=== PATIENT | female | born 1950 | race African-American/Black ===

== ENCOUNTER 2017-02-24 14:13 | Inpatient (IN) | payer MEDICARE, OTHER ==
[~2017-02-24] VITALS: Ht 157.5 cm; Wt 45.3 kg
[~2017-02-24 14:13] MED LIST: ASPI81 TUBE; DILT30 PO; DUONI NEB; FERR300S PO; LISI5 PO; METO50TA PO; METR-1 PO; RIVA20 PO
--- NOTE | 2017-02-24 14:37 | PD ---
HPI Chief Complaint: wound Time Seen by Provider: 14:37 Travel History International Travel<30 days: No Contact w/Intl Traveler<30days: No History of Present Illness HPI 66-year-old female with a history of CVA, diabetes, hypertension, gastrostomy tube is brought to the emergency department from [place] [facility] for evaluation of left foot and ankle wound. Per the documentation sent with the patient she needs to have a left BKA. I reviewed the documentation which shows that the patient has been on hospice care and the is now requesting aggressive treatment of the patient's left foot and ankle wound. The patient was sent from her detention facility to the [place] [facility] to see Dr. Gambino today and he then sent her immediately to the emergency department. The patient is nonverbal and unable to provide any history. PFSH Past Medical History Hx Anticoagulant Therapy: Yes Cancer: No Cardiovascular Problems: Yes Cerebrovascular Accident: Yes Diabetes: Yes Endocrine: No Genitourinary: No Immune Disorder: No Musculoskeletal: No Neurologic: No Psychiatric: No Reproductive: No Respiratory: Yes (Tracheostomy) Past Surgical History Abdominal Surgery: No Cardiac Surgery: No Ear Surgery: No Endocrine Surgery: No Eye Surgery: No Genitourinary Surgery: No Gynecologic Surgery: No Oral Surgery: No Thoracic Surgery: No Social History Alcohol Use: No Tobacco Use: No Substance Use: No Allergies-Medications (Allergen,Severity, Reaction): Coded Allergies: *MDRO Multi-Drug Resistant Organism (Verified Adverse Reaction, Unknown, 07/16/15) MRSA PCR Screen positive 07/15/15. Reported Meds & Prescriptions Reported Meds & Active Scripts Active Diltiazem HCl 30 Mg Tab 90 Mg PO QID 14 Days Flagyl (Metronidazole) 500 Mg Tab 500 Mg PO Q8HR 7 Days Xarelto 20 Mg Tab (Rivaroxaban) 20 Mg Tab 20 Mg PO DAILY 30 Days Metoprolol Tartrate 50 Mg Tab 100 Mg PO Q8HR 30 Days Prinivil 5 mg (Lisinopril) 5 Mg Tab 5 Mg PO DAILY 30 Days Ferrous Sulfate 300 Mg/5 Ml Elix 300 Mg PO DAILY 30 Days Aspirin Low Strength (Aspirin) 81 Mg Chew 81 Mg TUBE DAILY 30 Days Resp: Albuterol/Ipratropium 2.5 Mg/0.5 Mg (Albuterol/Ipratropium) 1 Ampule Nebu 1 Ampule NEB Q4HR NEB PRN 14 Days Resp: Albuterol/Ipratropium 2.5 Mg/0.5 Mg (Albuterol/Ipratropium) 1 Ampule Nebu 1 Ampule NEB QID NEB 14 Days Review of Systems ROS Limitations: Poor Historian Except as stated in HPI: all other systems reviewed are Neg Physical Exam Exam Limitations: Poor Historian Narrative GENERAL: Well-nourished and well-developed female patient in no acute distress. SKIN: Warm and dry. 2 x 4 cm sacral wound. HEAD: Normocephalic and atraumatic. EYES: No injection, drainage, or hyphema noted. PERRLA. EOMI. ENT: No nasal drainage noted. Oropharynx is clear. NECK: Supple and the trachea is midline. CARDIOVASCULAR: Regular rate and rhythm. RESPIRATORY: Breath sounds are equal bilaterally with no accessory muscle use, wheezing, rhonchi, or crackles. GASTROINTESTINAL: Abdomen is soft, non-tender, and nondistended. MUSCULOSKELETAL: There is a large deep wound to the anterior left ankle and foot that may extend to the joint. There is black eschar formation to the heel and toes of the left foot. The toes of the left foot are dark and dusky without capillary refill. There is no palpable DP or PT pulse in the left foot. Patient has contractures in the left side secondary to prior stroke. No obvious deformities throughout all other extremities. NEUROLOGICAL: Awake, alert, and oriented. Normal speech and gait. Cranial nerves are grossly intact. Data Data Last Documented VS Vital Signs Date Time Temp Pulse Resp B/P Pulse Ox O2 Delivery O2 Flow Rate FiO2 02/24/17 15:04 100 16 02/24/17 14:54 95 Room Air 02/24/17 14:49 99.5 115/54 Orders Complete Blood Count With Diff (02/24/17 14:34) Comprehensive Metabolic Panel (02/24/17 14:34) Lactic Acid Sepsis Protocol (02/24/17 14:34) Blood Culture (02/24/17 14:34) Wound Culture And Gram Stain (02/24/17 14:34) Chest, Single Ap (02/24/17 14:34) Blood Glucose (02/24/17 14:34) Ecg Monitoring (02/24/17 14:34) Iv Access Insert/Monitor (02/24/17 14:34) Oximetry (02/24/17 14:34) Urinalysis - C+S If Indicated (02/24/17 14:34) Foot, Complete (Evu6nms) (02/24/17 14:46) Tibia/Fibula (Ap/Lat) (02/24/17 14:46) Consult Vascular Surgery (02/24/17 ) Vancomycin Inj (Vancomycin Inj) (02/24/17 15:00) Piperacil-Tazo 4.5 Gm Premix (Zosyn 4.5 (02/24/17 15:00) (Hub Use Only)Inp Phy Cons/Ref (02/24/17 ) Type And Screen (02/24/17 15:52) Red Blood Cells (Rbc) (02/24/17 15:52) Urinary Catheter Management SABAS.Q8H (02/24/17 16:47) Prothrombin Time / Inr (Pt) (02/24/17 16:53) Act Partial Throm Time (Ptt) (02/24/17 16:53) Labs Laboratory Tests Test 02/24/17 15:09 White Blood Count 11.1 TH/MM3 Red Blood Count 3.58 MIL/MM3 Hemoglobin 8.0 GM/DL Hematocrit 25.5 % Mean Corpuscular Volume 71.3 FL Mean Corpuscular Hemoglobin 22.5 PG Mean Corpuscular Hemoglobin 31.5 % Concent Red Cell Distribution Width 16.6 % Platelet Count 633 TH/MM3 Mean Platelet Volume 8.4 FL Neutrophils (%) (Auto) 76.2 % Lymphocytes (%) (Auto) 10.6 % Monocytes (%) (Auto) 11.1 % Eosinophils (%) (Auto) 1.7 % Basophils (%) (Auto) 0.4 % Neutrophils # (Auto) 8.5 TH/MM3 Lymphocytes # (Auto) 1.2 TH/MM3 Monocytes # (Auto) 1.2 TH/MM3 Eosinophils # (Auto) 0.2 TH/MM3 Basophils # (Auto) 0.0 TH/MM3 CBC Comment DIFF FINAL Differential Comment Sodium Level 135 MEQ/L Potassium Level 4.7 MEQ/L Chloride Level 102 MEQ/L Carbon Dioxide Level 27.9 MEQ/L Anion Gap 5 MEQ/L Blood Urea Nitrogen 21 MG/DL Creatinine 0.56 MG/DL Estimat Glomerular Filtration 131 ML/MIN Rate Random Glucose 109 MG/DL Calcium Level 8.9 MG/DL Total Bilirubin 0.2 MG/DL Aspartate Amino Transf 21 U/L (AST/SGOT) Alanine Aminotransferase 16 U/L (ALT/SGPT) Alkaline Phosphatase 111 U/L Total Protein 7.9 GM/DL Albumin 2.0 GM/DL [facility] Medical Decision Making Medical Screen Exam Complete: Yes Emergency Medical Condition: Yes Differential Diagnosis Gas gangrene versus peripheral vascular disease versus sepsis versus abscess Narrative Course 66-year-old female with multiple medical conditions is brought to the emergency department for evaluation of left foot and ankle wound. Patient has a low- grade fever of 99.5F and is tachycardic with a heart rate of 95 bpm. Otherwise vital signs within normal limits. She has a very large and deep wound to the left foot and ankle, the foot appears gangrenous with loss of blood supply. I spoke with Dr. Gambino who states that he saw the patient in outpatient clinic today and that the wound extends to the bone so therefore he sent her to the emergency department for below the knee amputation to be performed by either vascular or orthopedic surgery. CBC shows slightly elevated white blood cell count of 11.1. Anemia with a hemoglobin of 8.0, hematocrit 25.5. CMP is unremarkable. X-ray of the left foot shows multifocal osteomyelitis involving the ankle and foot. X-ray of the left tib-fib shows ankle and foot osteomyelitis. Chest x-ray shows masslike density within the right lower lung field which is indeterminate. CT of the chest may be helpful for further evaluation. Mild cardiomegaly. The patient has left foot and ankle osteomyelitis with wet gangrene. She'll be admitted to medicine service with vascular surgery consultation and is scheduled to have an [id number] amputation tomorrow morning. I discussed the case with my attending physician Dr. Abrams who is aware of the patients history, physical examination findings, and treatment plan. Physician Communication Physician Communication I spoke with Mallika JOSE for Dr. Kam who evaluated the patient in the ED and spoke with her team of attendings and the plan is for Dr. Mccray to perform AKA tomorrow morning. I spoke with Dr. Bubba OLSEN who agrees to admit the patient to his service. Diagnosis Primary Impression: Subacute osteomyelitis, left ankle and foot Additional Impressions: Wet gangrene Critical lower limb ischemia Admitting Information Admitting Physician Requests: Admit Jen Madsen 27, 2017 14:37
[2017-02-24 14:49] VITALS: BP 115/54; PULSE 95; RESP 22; TEMP 99.5; O2SAT 95
[2017-02-24 14:54] VITALS: O2SAT 95
[2017-02-24] MEDS ORDERED: VANCOMYCIN INJ 1,000 MG in SODIUM CHLOR 0.9% 250 ML INJ 250 ML IV ONE (15:00)
[2017-02-24] MEDS ORDERED: PIPERACIL-TAZO 4.5 GM PREMIX 100 ML IV ONE (15:00)
[2017-02-24 15:43] LABS: AUTOMATED NEUTROPHIL # 8.5 TH/MM3 (1.8-7.7); BASOPHIL % 0.4 % (0.0-2.0); EOSINOPHIL # 0.2 TH/MM3 (0-0.4); EOSINOPHIL % 1.7 % (0.0-4.0); HEMATOCRIT 25.5 % (35.0-46.0); HEMO FLAGS DIFF FINAL; LYMPH % 10.6 % (9.0-44.0); LYMPHOCYTE # 1.2 TH/MM3 (1.0-4.8); MEAN CELL VOLUME 71.3 FL (80.0-100.0); MEAN CORPUSCULAR HEMOGLOBIN 22.5 PG (27.0-34.0); MEAN CORPUSCULAR HGB CONC 31.5 % (32.0-36.0); MONO % 11.1 % (0.0-8.0); NEUT % 76.2 % (16.0-70.0); PLATELET COUNT 633 TH/MM3 (150-450); RED BLOOD COUNT 3.58 MIL/MM3 (4.00-5.30); RED CELL DISTRIBUTION WIDTH 16.6 % (11.6-17.2); WHITE BLOOD COUNT 11.1 TH/MM3 (4.0-11.0)
[2017-02-24 16:03] LABS: ALT (GPT) 16 U/L (10-53); ANION GAP 5 MEQ/L (5-15); AST (GOT) 21 U/L (15-37); BICARBONATE 27.9 MEQ/L (21.0-32.0); BLOOD UREA NITROGEN 21 MG/DL (7-18); CHLORIDE 102 MEQ/L (98-107); GLOMERULAR FILTRATION RATE 131 ML/MIN (>89); POTASSIUM 4.7 MEQ/L (3.5-5.1); SODIUM (NA) 135 MEQ/L (136-145)
[2017-02-24 16:05] LABS: ALKALINE PHOSPHATASE 111 U/L (45-117); TOTAL BILIRUBIN ADULT 0.2 MG/DL (0.2-1.0)
--- NOTE | 2017-02-24 16:16 | RADRPT ---
EXAM DATE/TIME: 02/24/2017 15:31 [facility] COMPARISON: No previous studies available for comparison. INDICATIONS : Left foot wound. MEDICAL HISTORY : diabetic SURGICAL HISTORY : None. ENCOUNTER: Initial ACUITY: 1 day PAIN SCORE: Non-responsive. LOCATION: Left chest foot FINDINGS: There appears to be multiple sites of soft tissue ulceration with underlying bony changes consistent with multifocal cellulitis and osteomyelitis, these including the region the lateral malleolus, the h eel, the first tarsometatarsal joint region, the first metatarsophalangeal joint region, the great to e tuft and the fifth toe tuft. There appears to be some ankle joint widening and subluxation and ther e is some erosive change involving the anterior lip of the distal tibial epiphysis. There is moderate diffuse demineralization CONCLUSION: Findings worrisome for multifocal osteomyelitis involving ankle and foot. Emil Kirby MD on February 24, 2017 at 16:10 Board Certified Radiologist. This report was verified electronically.
--- NOTE | 2017-02-24 16:18 | RADRPT ---
EXAM DATE/TIME: 02/24/2017 15:34 [facility] COMPARISON: No previous studies available for comparison. INDICATIONS : Wound left tib/fib MEDICAL HISTORY : diabetic SURGICAL HISTORY : None. ENCOUNTER: Initial ACUITY: 1 day PAIN SCORE: Non-responsive. LOCATION: Left tibia fibula FINDINGS: There is ankle joint subluxation and findings worrisome for osteomyelitis at the ankle. The more prox imal tibia and fibula are grossly intact. Moderate diffuse demineralization is present. CONCLUSION: Abnormalities at the ankle involving the foot. The proximal left tibia and fibula are intact Emil Kirby MD on February 24, 2017 at 16:14 Board Certified Radiologist. This report was verified electronically.
--- NOTE | 2017-02-24 16:44 | RADRPT ---
EXAM DATE/TIME: 02/24/2017 15:29 [facility] COMPARISON: CHEST SINGLE AP, July 23, 2015, 12:50. INDICATIONS : Evaluate for pneumonia, pneumothorax or communicable disease. Pre op for above the left knee amputati on. MEDICAL HISTORY : Hypertension. Diabetes, MRSA SURGICAL HISTORY : None. ENCOUNTER: Initial ACUITY: 1 day PAIN SCORE: Non-responsive. LOCATION: Bilateral chest FINDINGS: There is a mass-like density within the right lower lung field. CT of the chest may be helpful for fu rther evaluation of this density. The heart is enlarged. The left lung is clear. CONCLUSION: 1. Mass-like density within the right lower lung field which is indeterminate. CT of the chest may b e helpful for further evaluation of this finding. 2. Mild cardiomegaly. Yoan Roa MD on February 24, 2017 at 16:39 Board Certified Radiologist. This report was verified electronically.
--- NOTE | 2017-02-24 16:58 | PD.VS.CON ---
History of Present Illness Chief Complaint: Left heel/foot with chronic foul smelling necrotic ulcerations that has been present for awhile per . Consult Requested by: ED History of Present Illness Mrs. Marrufo is a non verbal 66/ AA female patient who has been on Hospice post hx of multiple CVAs. History has been obtained by and daughter who were at the BS during evaluation. Pt was recently on Hospice, reported they did not know the severity of the ulcers until recently and this is when they decided to come to the ED to seek treatment of patients left lower leg ulcerations (Mallika Rizvi) Past/Family/Social History Past Medical History Cerebrovascular accident Diabetes Hypertension Hyperlipidemia Hemiplegia following CVA GERD Past Surgical History Gastrostomy tube placement (Mallika Rizvi) Home Medications Active Scripts Diltiazem HCl 30 Mg Tab90 Mg PO QID 14 Days Prov:Citlaly You 07/25/15 Metronidazole (Flagyl)500 Mg [id number] Mg PO Q8HR 7 Days Prov:Rivka Chan 07/24/15 Rivaroxaban (Xarelto 20 Mg Tab)20 Mg Tab20 Mg PO DAILY 30 Days Ref 0 Prov:Rivka Chan 07/24/15 Metoprolol Tartrate 50 mg 50 Mg Pzk135 Mg PO Q8HR 30 Days Prov:Rivka Chan 07/24/15 Lisinopril 5 mg (Prinivil 5 mg)5 Mg Tab5 Mg PO DAILY 30 Days Prov:Rivka Chan 07/24/15 Ferrous Sulfate 300 Mg/5 Ml [id number] Mg PO DAILY 30 Days Prov:Rivka Chan 07/24/15 Aspirin (Aspirin Low Strength)81 Mg Chew81 Mg TUBE DAILY 30 Days Prov:Rivka Chan 07/24/15 Albuterol/Ipratropium (Resp: Albuterol/Ipratropium 2.5 Mg/0.5 Mg)1 Ampule Nebu1 Ampule NEB Q4HR NEB PRN (WHEEZING) 14 Days Prov:Rivka Chan 07/24/15 Albuterol/Ipratropium (Resp: Albuterol/Ipratropium 2.5 Mg/0.5 Mg)1 Ampule Nebu1 Ampule NEB QID NEB 14 Days Prov:Rivka ChanJose JOSE 07/24/15 Coded Allergies: *MDRO Multi-Drug Resistant Organism (Verified Adverse Reaction, Unknown, 07/16/15) MRSA PCR Screen positive 07/15/15. Review of Systems ROS Limitations: Other (pt non verbal) Integumentary: COMPLAINS OF: Abnormal pigmentation (pt with large multiple foul smelling necrotic ulcerations left foot and heel ) (Mallika Rizvi) Physical Exam Vitals/I&O Date Time Temp Pulse Resp B/P Pulse Ox O2 Delivery O2 Flow Rate FiO2 02/24/17 15:04 100 16 02/24/17 14:54 95 Room Air 02/24/17 14:49 99.5 95 22 115/54 95 Neuro: Pt alert Non Verbal Heart: +S1,S2 Lungs: CTA Vascular: Non palpable Left DP/PT Extremities: Hemiplegia post CVA Pt is bed bound (Mallika Rizvi) Laboratory Tests Test 02/24/17 15:09 White Blood Count 11.1 Red Blood Count 3.58 Hemoglobin 8.0 Hematocrit 25.5 Mean Corpuscular Volume 71.3 Mean Corpuscular Hemoglobin 22.5 Mean Corpuscular Hemoglobin 31.5 Concent Red Cell Distribution Width 16.6 Platelet Count 633 Mean Platelet Volume 8.4 Neutrophils (%) (Auto) 76.2 Lymphocytes (%) (Auto) 10.6 Monocytes (%) (Auto) 11.1 Eosinophils (%) (Auto) 1.7 Basophils (%) (Auto) 0.4 Neutrophils # (Auto) 8.5 Lymphocytes # (Auto) 1.2 Monocytes # (Auto) 1.2 Eosinophils # (Auto) 0.2 Basophils # (Auto) 0.0 CBC Comment DIFF FINAL Differential Comment Date/Time Procedure Status Source Growth 02/24/17 15:14 Gram Stain Received Wound Foot Pending 02/24/17 15:14 Wound Culture Received Wound Foot Pending 02/24/17 15:05 Aerobic Blood Culture Received Blood Peripheral Pending 02/24/17 15:05 Anaerobic Blood Culture Received Blood Peripheral Pending (Mallika Rizvi) Assessment and Plan Assessment: (1) Critical lower limb ischemia Status: Acute Plan This is a 66/f patient with critical limb ischemia with several large non healing foul smelling deep tissue ulcerations. Plan Discussed with (Kt) Left AKA surgical intervention and daughter both agree with plan Questions were answered and consents were signed and placed in the chart Second opinion Consult placed as per hospital policy NPO after midnight Pt scheduled for L AKA tomorrow Mallika JOSE [facility]/[place] [phone] (Mallika Rizvi) Plan Bed bound, female s/p CVA with no LE function who has infected severe tissue loss into joint space. wants everything done. Plan for L AKA tomorrow. Dr. Kam will see as second opinion. Yoan Mccray MD FACS RPV[employer] tissue coordinator [facility] [phone] (Yoan Mccray MD) Mallika Rizvi Feb 24, 2017 16:58 Yoan Mccray MD Feb 24, 2017 17:10
--- NOTE | 2017-02-24 17:03 | PD.VS.CON ---
History of Present Illness Chief Complaint: Hx of left leg wound with contracture. Asked for second opinion for possible left AKA. Consult Requested by: History of Present Illness History of Present Illness HPI 66-year-old female with a history of CVA, diabetes, hypertension on hospice. Left foot wound. Being followed by Dr. Crystal, wound care. Patient with family at bedside. Past/Family/Social History Past Medical History PFSH Past Medical History CVA DM HTN COPD Past Surgical History Abdominal Surgery: No Cardiac Surgery: No Ear Surgery: No Endocrine Surgery: No Eye Surgery: No Genitourinary Surgery: No Gynecologic Surgery: No Oral Surgery: No Thoracic Surgery: No Social History Alcohol Use: No Tobacco Use: No Substance Use: No Home Medications Active Scripts Diltiazem HCl 30 Mg Tab90 Mg PO QID 14 Days Prov:Citlaly You 07/25/15 Metronidazole (Flagyl)500 Mg Ikm135 Mg PO Q8HR 7 Days Prov:Rivka Chan 07/24/15 Rivaroxaban (Xarelto 20 Mg Tab)20 Mg Tab20 Mg PO DAILY 30 Days Ref 0 Prov:Rivka Chan 07/24/15 Metoprolol Tartrate 50 mg 50 Mg Gud493 Mg PO Q8HR 30 Days Prov:Rivka Chan 07/24/15 Lisinopril 5 mg (Prinivil 5 mg)5 Mg Tab5 Mg PO DAILY 30 Days Prov:Rivka Chan 07/24/15 Ferrous Sulfate 300 Mg/5 Ml Gavq257 Mg PO DAILY 30 Days Prov:Rivka Chan 07/24/15 Aspirin (Aspirin Low Strength)81 Mg Chew81 Mg TUBE DAILY 30 Days Prov:Rivka Chan 07/24/15 Albuterol/Ipratropium (Resp: Albuterol/Ipratropium 2.5 Mg/0.5 Mg)1 Ampule Nebu1 Ampule NEB Q4HR NEB PRN (WHEEZING) 14 Days Prov:Rivka Chan 07/24/15 Albuterol/Ipratropium (Resp: Albuterol/Ipratropium 2.5 Mg/0.5 Mg)1 Ampule Nebu1 Ampule NEB QID NEB 14 Days Prov:Rivka Chan 07/24/15 Coded Allergies: *MDRO Multi-Drug Resistant Organism (Verified Adverse Reaction, Unknown, 07/16/15) MRSA PCR Screen positive 07/15/15. Review of Systems ROS Limitations: Poor Historian Physical Exam Vitals/I&O Date Time Temp Pulse Resp B/P Pulse Ox O2 Delivery O2 Flow Rate FiO2 02/24/17 15:04 100 16 02/24/17 14:54 95 Room Air 02/24/17 14:49 99.5 95 22 115/54 95 Neuro: confused. Heart: Regular Lungs: Decreased at base. Abdomen: soft and non-distended. Extremities: left leg with greater than 90 degree contracture left knee. Left foot FOUL smelling with multiple ulcerated/denuded areas with hyperpigmentation. NO doppler signals. Foot cool. Laboratory Tests Test 02/24/17 15:09 White Blood Count 11.1 Red Blood Count 3.58 Hemoglobin 8.0 Hematocrit 25.5 Mean Corpuscular Volume 71.3 Mean Corpuscular Hemoglobin 22.5 Mean Corpuscular Hemoglobin 31.5 Concent Red Cell Distribution Width 16.6 Platelet Count 633 Mean Platelet Volume 8.4 Neutrophils (%) (Auto) 76.2 Lymphocytes (%) (Auto) 10.6 Monocytes (%) (Auto) 11.1 Eosinophils (%) (Auto) 1.7 Basophils (%) (Auto) 0.4 Neutrophils # (Auto) 8.5 Lymphocytes # (Auto) 1.2 Monocytes # (Auto) 1.2 Eosinophils # (Auto) 0.2 Basophils # (Auto) 0.0 CBC Comment DIFF FINAL Differential Comment Sodium Level 135 Potassium Level 4.7 Chloride Level 102 Carbon Dioxide Level 27.9 Anion Gap 5 Blood Urea Nitrogen 21 Creatinine 0.56 Estimat Glomerular Filtration 131 Rate Random Glucose 109 Calcium Level 8.9 Total Bilirubin 0.2 Aspartate Amino Transf 21 (AST/SGOT) Alanine Aminotransferase 16 (ALT/SGPT) Alkaline Phosphatase 111 Total Protein 7.9 Albumin 2.0 Date/Time Procedure Status Source Growth 02/24/17 15:14 Gram Stain - Final Resulted Wound Foot 02/24/17 15:14 Wound Culture Resulted Wound Foot Pending 02/24/17 15:05 Aerobic Blood Culture Received Blood Peripheral Pending 02/24/17 15:05 Anaerobic Blood Culture Received Blood Peripheral Pending Last 48 hours Impressions Tibia/Fibula X-Ray 02/24/17 1446 Signed Impressions: Service Date/Time: Friday, February 24, 2017 15:34 - CONCLUSION: Abnormalities at the ankle involving the foot. The proximal left tibia and fibula are intact Emil Kirby MD Foot X-Ray 02/24/17 1446 Signed Impressions: Service Date/Time: Friday, February 24, 2017 15:31 - CONCLUSION: Findings worrisome for multifocal osteomyelitis involving ankle and foot. Emil Kirby MD Assessment and Plan Plan 66 year old female with long-standing wound of left lower extremity. Patient with contracture and wet-gangrene of the left lower extremity. Would benefit from left Above Knee Amputation. I agree with Dr. Mccray's assessment and plan for left AKA.. Sy Kam DO, FACS [facility] /Sy Lopez DO Feb 24, 2017 17:03
[2017-02-24 17:45] LABS: APTT (PATIENT) 30.8 SEC (24.3-30.1); INTERNATIONAL NORMALIZED RATIO 0.9 RATIO; PROTHROMBIN TIME - PATIENT 10.4 SEC (9.8-11.6)
[2017-02-24 18:08] VITALS: BP 109/47; PULSE 122; RESP 16; O2SAT 94
[2017-02-24] MEDS ORDERED: SODIUM CHLOR 0.9% 1000 ML INJ 1,000 ML IV SCH (18:14)
[2017-02-24] MEDS ORDERED: ACETAMINOPHEN 325 MG TAB PO PRN (18:15)
[2017-02-24] MEDS ORDERED: LACTULOSE SYRUP 20 GM/30 ML CUP PO PRN (18:15)
[2017-02-24] MEDS ORDERED: SENNOSIDES 8.6 MG TAB PO PRN (18:15)
[2017-02-24] MEDS ORDERED: ONDANSETRON HCL 4 MG/2 ML VIAL IVP PRN (18:15)
[2017-02-24] MEDS ORDERED: NALOXONE HCL 0.4 MG/ML AMP IV PRN (18:15)
[2017-02-24] MEDS ORDERED: MAGNESIUM HYDROXIDE SUSP 30 ML CUP PO PRN (18:15)
[2017-02-24] MEDS ORDERED: SODIUM CHLORIDE 0.9% FLUSH 10 ML FLUSH IV FLUSH PRN (18:15)
[2017-02-24] MEDS ORDERED: BISACODYL 10 MG SUPP RECTAL PRN (18:15)
[2017-02-24] MEDS ORDERED: TUSS100S3 G-TUBE (18:20)
[2017-02-24] MEDS ORDERED: GLUC1KIT IM (18:20)
[2017-02-24] MEDS ORDERED: CERTTAB2 G-TUBE (18:20)
[2017-02-24] MEDS ORDERED: FERR300S G-TUBE (18:20)
[2017-02-24] MEDS ORDERED: ASPI1TAB91 G-TUBE (18:20)
[2017-02-24] MEDS ORDERED: LOPE1LIQ13 G-TUBE (18:20)
[2017-02-24] MEDS ORDERED: L. A1CAP G-TUBE (18:20)
[2017-02-24] MEDS ORDERED: LEVEMIR SQ (18:20)
[2017-02-24] MEDS ORDERED: DILT60TA G-TUBE (18:20)
[2017-02-24] MEDS ORDERED: GLUC40GE PO (18:20)
[2017-02-24] MEDS ORDERED: MUPI2OIN TOPICAL (18:20)
[2017-02-24 18:25] LABS: BACTERIA, URINE RARE /hpf; BLOOD, URINE NEG (NEG); COMMENT (UR) CULT NOT INDICATED; CULTURE IF INDICATED CULT NOT INDICATED; GLUCOSE,URINE NEG (NEG); KETONE, URINE NEG (NEG); NITRITE,URINE NEG (NEG); URINE COLOR YELLOW (YELLW/STRAW)
[2017-02-24] MEDS ORDERED: Vancomycin Consult Pharmacy 1 EA OTHER SCH (18:30)
[2017-02-24] MEDS ORDERED: IPRASOL NEB (18:37)
[2017-02-24] MEDS ORDERED: HYDR-3366 G-TUBE (18:37)
[2017-02-24] MEDS ORDERED: METO100T G-TUBE (18:37)
[2017-02-24] MEDS ORDERED: NORC5TAB G-TUBE ×2 (18:37→18:40)
[2017-02-24] MEDS ORDERED: OXYGEN NAS.CANULA (18:37)
[2017-02-24] MEDS: DEXT 5%-NACL 0.45% 1000 ML INJ 1,000 ML IV SCH (20:00)
[2017-02-24] MEDS ORDERED: GLUCAGON 1 MG/ML VIAL OTHER PRN (20:00)
[2017-02-24] MEDS ORDERED: DEXTROSE 50% IN WATER 50 ML VIAL(D50) IV PRN (20:00)
--- NOTE | 2017-02-24 20:10 | HHI.HP ---
HPI Service [facility] Primary Care Physician Non-Staff Admission Diagnosis Left Foot and Ankle Osteomyelitis with Wet Gangrene Diagnoses: Chief Complaint: LEFT FOOT AND ANKLE INFECTION Travel History International Travel<30 Days: No Contact w/Intl Traveler <30 Da: No Traveled to Known Affected Are: No History of Present Illness This is an unfortunate 66-year-old female with history of CVA with left-sided hemiparesis and aphasic, hypertension, type 2 diabetes. Patient has PEG tube and has previous tracheostomy which has now been removed. Patient is a resident from a local detention. Per documentation from the ER, patient was sent for evaluation for possible left BKA due to worsening left ankle and foot wound.. Apparently the patient had been under hospice care and is now requesting aggressive treatment of the patient's left foot and ankle wound. She was seen by Dr. Gambino today and he immediately sent her to the hospital for further evaluation. Patient is nonverbal, she is unable to provide any history. No family at the bedside. She was evaluated in the emergency room, she was noted with a large deep wound to the left anterior ankle and foot that extends to the joint, she has black eschar and there is a strong odor. There is no palpable Doppler or posterior tibial pulses. CBC was remarkable for slight elevation in white blood count, 11.1. She was noted anemic with hemoglobin of 8, hematocrit 25.5. A&P was essentially unremarkable. X-ray of the left foot show multifocal osteomyelitis involving the ankle and foot. X-ray of the left tib-fib shows ankle and foot osteomyelitis. A chest x-ray shows masslike density within the right lower lung field which is indeterminate. CT of the chest may be helpful for further evaluation. There is also mild cardiomegaly. Vascular surgery was consulted for evaluation and Dr. Mccray and his nurse practitioner evaluated the patient for possible amputation in the morning. They have discussed the plan of care with the patient's family and they are in agreement and to proceed with surgery. A second opinion with Dr. Kam has been put in place per hospital protocol and he agrees with recommendation for AKA. Patient has been started on antibiotics, cultures have been obtained. Patient is admitted for further evaluation and treatment. Review of Systems ROS Limitations: Unresponsive (HX CVA, non verbal. ) Past Family Social History Past Medical History PAST MEDICAL HISTORY 1. Cerebrovascular accident, hemorrhagic stroke in 2015, required vent with trach and peg tube insertion 2. Diabetes. 3. Hypertension. 4. Hyperlipidemia. 5. Keratoconjunctivitis. 6. Sjogrens. 6. Hemiplegia following cerebrovascular accident. 7. Gastroesophageal reflux disease. 8. Pressure ulcer Past Surgical History peg insertion trach placement, now removed. Reported Medications Reported Meds & Active Scripts Active Reported [place] (Hydrocodone-Acetaminophen) 5-325 mg Tab 1 Tab G-TUBE Q4H PRN [Oxygen] 2 Liter JOCELYN.CANULA DIRECTED PRN Duoneb (Ipratropium-Albuterol Neb) 0.5-2.5 Mg/3 Ml Neb 3 Ml NEB Q4HR PRN [place] (Hydrocodone-Acetaminophen) 5-325 mg Tab 1 Tab G-TUBE Q6H Metoprolol Tartrate 100 Mg Tab 100 Mg G-TUBE Q12HR Hold if SBP <100 or DBP <60 *May Crush* Certavite/Antioxidants (Multiple Vitamins W/ Minerals) 1 Tab Tab 1 Tab G-TUBE DAILY Ferrous Sulfate Liq (Ferrous Sulfate) 300 Mg/5 Ml Soln 300 Mg G-TUBE DAILY Acidophilus Capsule (L. Acidophilus/Pectin, [place]) 1 Each Capsule 100 Mg G- TUBE BID Imodium A-D (Loperamide HCl) 1 Mg/7.5 Ml Liquid 15 Ml G-TUBE Q6HR PRN Tussin Dm 100-10 mg/5Ml (Dextromethorphan-Guaifenesin) 1 Syp Syp 10 Ml G-TUBE Q4HR PRN Mupirocin Topical (Mupirocin) 2 % Oint 1 Applic TOPICAL DAILY Apply to peg tube site after nss wash then cover w/gauze drain sponge Diltiazem (Diltiazem HCl) 60 Mg Tab 60 Mg G-TUBE QID Levemir Inj (Insulin Detemir) 1,000 unit/ 10 ML Vial 5 Units SQ BID Do not mix with any other Insulin. Glucose Gel (Dextrose) 40 % Gel 1 Tube PO DIRECTED PRN Glucagon Emergency Inj Kit (Glucagon (Rdna) Inj Kit) 1 Mg Kit 1 Mg IM ONCE Aspirin Adult Low Strength (Aspirin) 81 Mg Tabdr 81 Mg G-TUBE DAILY Allergies: Coded Allergies: *MDRO Multi-Drug Resistant Organism (Verified Adverse Reaction, Unknown, 07/16/15) MRSA PCR Screen positive 07/15/15. Active Ordered Medications Inpatient Medications Acetaminophen (Tylenol) 650 mg Q4H PRN PO TEMP > 100.4; Start 02/24/17 at 18:15 Bisacodyl (Dulcolax Supp) 10 mg DAILY PRN RECTAL SEVERE CONSITIPATION; Start at 18:15 Lactulose 30 ml 30 ml DAILY PRN PO SEVERE CONSITIPATION; Start 02/24/17 at 18: 15 Magnesium Hydroxide (Milk Of Magnesia Liq) 30 ml Q12H PRN PO MILD - MODERATE CONSTIPATION; Start 02/24/17 at 18:15 Naloxone HCl (Narcan Inj) 0.4 mg UNSCH PRN IV SEE LABEL COMMENTS; Start at 18:15 Ondansetron HCl (Zofran Inj) 4 mg Q6H PRN IVP NAUSEA OR VOMITING; Start at 18:15 Pharmacy Profile Note 0 ml @ 0 mls/hr UNSCH OTHER ; Start 02/24/17 at 18:30 Piperacillin Sod/ Tazobactam Sod 100 ml @ 200 mls/hr ONCE ONCE IV Last administered on 02/24/17 15:47; Start 02/24/17 at 15:00; Stop 02/24/17 at 15:29 ; Status DC Senna/Docusate Sodium (Rosana-Colace) 1 tab BID PO ; Start 02/24/17 at 21:00 Sennosides (Senokot) 17.2 mg Q12H PRN PO MODERATE - SEVERE CONSTIPATION; Start 02/24/17 at 18:15 Sodium Chloride (NS 1000 ml Inj) 1,000 ml @ 100 mls/hr Q10H IV Last administered on 02/24/17 18:48; Start 02/24/17 at 18:14 Sodium Chloride (NS Flush) 2 ml BID IV FLUSH ; Start 02/24/17 at 21:00 Vancomycin HCl 1000 mg/Sodium Chloride 250 ml @ 250 mls/hr ONCE ONCE IV Last administered on 02/24/17 16:54; Start 02/24/17 at 15:00; Stop 02/24/17 at 15:59 ; Status DC Vancomycin HCl/ Sodium Chloride (Vancomycin Inj/ NS 250 ml Inj) 250 ml @ 250 mls/hr ONCE ONCE IV ; Start 02/25/17 at 05:00; Stop 02/25/17 at 05:59 Family History unable to obtain Social History Per review of medical records, patient is , has grown children. She is a resident at a detention. She was under hospice services. No documented history of smoking, no alcohol, no substance abuse. Patient is bedbound Physical Exam Vital Signs Vital Signs Date Time Temp Pulse Resp B/P Pulse Ox O2 Delivery O2 Flow Rate FiO2 02/24/17 18:08 122 16 109/47 94 Room Air 02/24/17 15:04 100 16 02/24/17 14:54 95 Room Air 02/24/17 14:49 99.5 95 22 115/54 95 Physical Exam GENERAL: This is an elderly female chronically ill appearing. SKIN: Left ankle and foot wound. HEAD: Atraumatic. Normocephalic. No temporal or scalp tenderness. EYES: Keep an eyes close, refuses to open. ENT: Nose without bleeding, purulent drainage or septal hematoma. Throat without erythema, tonsillar hypertrophy or exudate. Uvula midline. Airway patent. NECK: Trachea midline. Trach scar noted. No JVD or lymphadenopathy. Supple, nontender, no meningeal signs. CARDIOVASCULAR: Regular rate and rhythm without murmurs, gallops, or rubs. RESPIRATORY: Poor inspiratory effort, diminished at bases. GASTROINTESTINAL: Abdomen soft, non-tender, nondistended. No hepato-splenomegaly , or palpable masses. No guarding. PEG tube noted to left abdomen. MUSCULOSKELETAL: Left-sided hemiplegia noted. Muscle atrophy both legs. Bilateral foot drop. Large deep wound noted to the left anterior ankle and foot that extends to the joint, there is black as sharp formation to the heel and toes of left foot. Toes are dusky in color, no capillary refill. No palpable DP or PT pulse in the left foot. Toes are cool to touch. Has contractures left upper and left lower extremity from previous stroke. NEUROLOGICAL: Patient maintaining eyes close, tries to open them. Does not follow commands. Nonverbal. Left-sided hemiplegia noted. Laboratory Laboratory Tests Test 02/24/17 02/24/17 02/24/17 02/24/17 15:09 17:02 17:40 18:00 White Blood Count 11.1 Red Blood Count 3.58 Hemoglobin 8.0 Hematocrit 25.5 Mean Corpuscular Volume 71.3 Mean Corpuscular Hemoglobin 22.5 Mean Corpuscular Hemoglobin 31.5 Concent Red Cell Distribution Width 16.6 Platelet Count 633 Mean Platelet Volume 8.4 Neutrophils (%) (Auto) 76.2 Lymphocytes (%) (Auto) 10.6 Monocytes (%) (Auto) 11.1 Eosinophils (%) (Auto) 1.7 Basophils (%) (Auto) 0.4 Neutrophils # (Auto) 8.5 Lymphocytes # (Auto) 1.2 Monocytes # (Auto) 1.2 Eosinophils # (Auto) 0.2 Basophils # (Auto) 0.0 CBC Comment DIFF FINAL Differential Comment Sodium Level 135 Potassium Level 4.7 Chloride Level 102 Carbon Dioxide Level 27.9 Anion Gap 5 Blood Urea Nitrogen 21 Creatinine 0.56 Estimat Glomerular Filtration 131 Rate Random Glucose 109 Calcium Level 8.9 Total Bilirubin 0.2 Aspartate Amino Transf 21 (AST/SGOT) Alanine Aminotransferase 16 (ALT/SGPT) Alkaline Phosphatase 111 Total Protein 7.9 Albumin 2.0 Prothrombin Time 10.4 Prothromb Time International 0.9 Ratio Activated Partial 30.8 Thromboplast Time Lactic Acid Level 1.6 Urine Color YELLOW Urine Turbidity CLEAR Urine pH 8.0 Urine Specific [place] 1.019 Urine Protein TRACE Urine Glucose (UA) NEG Urine Ketones NEG Urine Occult Blood NEG Urine Nitrite NEG Urine Bilirubin NEG Urine Urobilinogen LESS THAN 2.0 Urine Leukocyte Esterase NEG Urine RBC LESS THAN 1 Urine WBC 1 Urine Bacteria RARE Microscopic Urinalysis Comment CULT NOT INDICATED Date/Time Procedure Status Source Growth 02/24/17 15:14 Gram Stain - Final Resulted Wound Foot 02/24/17 15:14 Wound Culture Resulted Wound Foot Pending 02/24/17 15:05 Aerobic Blood Culture Received Blood Peripheral Pending 02/24/17 15:05 Anaerobic Blood Culture Received Blood Peripheral Pending Result Diagram: 02/24/17 1509 02/24/17 1509 Imaging Last Impressions Tibia/Fibula X-Ray 02/24/17 1446 Signed Impressions: Service Date/Time: Friday, February 24, 2017 15:34 - CONCLUSION: Abnormalities at the ankle involving the foot. The proximal left tibia and fibula are intact Emil Kirby MD Foot X-Ray 02/24/17 1446 Signed Impressions: Service Date/Time: Friday, February 24, 2017 15:31 - CONCLUSION: Findings worrisome for multifocal osteomyelitis involving ankle and foot. Emil Kirby MD Assessment and Plan Problem List: (1) Wet gangrene (2) Subacute osteomyelitis, left ankle and foot (3) Mass of right lung (4) Critical lower limb ischemia (5) History of CVA with residual deficit (6) Diabetes 1.5, managed as type 2 (7) HTN (hypertension) (8) Anemia Assessment and Plan Admit to Dr. Miner 66-year-old elderly black female with history of CVA with left-sided hemiplegia , bedbound. Presented to the emergency room with worsening left ankle and foot wound, x-ray findings concerning for osteomyelitis. Found with gangrene and leg ischemia. Left leg ischemia, gangrene. -Appreciate vascular surgery input, the patient will be going to the operating room in the morning for left [id number] amputation. Family has agreed to procedure. -Keep patient nothing by mouth, cautious hydration. Left leg infection, x-ray findings of osteomyelitis. Leukocytosis, mild tachycardia. Continue with empiric antibiotics and follow cultures Chest x-ray findings of right lung masslike density. Unclear if this is a known finding. -We'll discuss with patient's family and evaluate how they want to proceed whether further diagnostics are needed such as CT or any biopsy. Patient was under hospice services. Anemia, normocytic hypochromic. -Monitor CBC Type 2 diabetes Accu-Cheks before meals and at bedtime with insulin therapy as needed History of prior CVAs as well as intracranial bleed, patient is aphasic with left-sided hemiplegia. Has PEG tube. Continue to monitor patient -We will resume aspirin after surgery. Hypertension, stable We will resume home medications when able to restart feedings. Home medications reviewed, to facility under hospice services. Some initiated as indicated SCDs for DVT prophylaxis Plan of care has been discussed with the attending and RN. Further management of the patient will be dependent on the hospital course Patient's condition is guarded, she is at high risk for complications due to presence of comorbidities and debilitated state. Family has agreed to proceed with surgery. Patient is stable to proceed. She will be monitored closely. This patient was seen by myself and Dr. Miner, this H&P is written on his behalf Physician Certification 2 Midnight Certification Type: Admission for Inpatient Services Order for Inpatient Services The services are ordered in accordance with Medicare regulations or non- Medicare payer requirements, as applicable. In the case of services not specified as inpatient-only, they are appropriately provided as inpatient services in accordance with the 2-midnight benchmark. Estimated LOS (days): 2 2 days is the estimated time the patient will need to remain in the hospital, assuming treatment plan goals are met and no additional complications. Post-Hospital Plan: SNF Problem Qualifiers (1) HTN (hypertension): Qualified Code: I10 - Essential hypertension (2) Anemia: Qualified Code: D50.9 - Iron deficiency anemia, unspecified iron deficiency anemia type Rivka Chan [facility] Feb 24, 2017 20:10
[2017-02-24] MEDS: INSULIN ASPART SUPPLEMENTAL SCALE SQ SCH (21:00)
[2017-02-24] MEDS: SODIUM CHLORIDE 0.9% FLUSH 10 ML FLUSH IV FLUSH SCH (21:00)
[2017-02-24 21:01] VITALS: BP 159/71; PULSE 125; RESP 14; O2SAT 95
[2017-02-24 21:07] LABS: MEAN CORPUSCULAR HGB CONC 29.9 % (32.0-36.0)
[2017-02-24 21:15] VITALS: BP 137/63; PULSE 129; RESP 36; TEMP 101; O2SAT 93
[2017-02-24] MEDS: PIPERACIL-TAZO 3.375 GM PREMIX 50 ML IV SCH (22:00)
[2017-02-24 22:06] VITALS: PULSE 126
[2017-02-24] MEDS: DOCUSATE SODIUM 50 MG/SENNA 8.6 MG TAB PO SCH (23:17)
[2017-02-25] VITALS (9 sets, daily range): BP systolic 112–148; BP diastolic 59–70; PULSE 103–122; RESP 16–27; TEMP 96.2–99.2; O2SAT 95–100
[2017-02-25] MEDS: PIPERACIL-TAZO 3.375 GM PREMIX 50 ML IV SCH ×5 (04:32→22:52)
[2017-02-25] MEDS ORDERED: VANCOMYCIN INJ 1,000 MG in SODIUM CHLOR 0.9% 250 ML INJ 250 ML IV ONE (05:00)
[2017-02-25] MEDS: INSULIN ASPART SUPPLEMENTAL SCALE SQ SCH ×4 (07:00→21:00)
[2017-02-25 07:23] LABS: BICARBONATE 25.3 MEQ/L (21.0-32.0); POTASSIUM 4.1 MEQ/L (3.5-5.1)
[2017-02-25 07:40] LABS: BASOPHIL # 0.1 TH/MM3 (0-0.2); BASOPHIL % 0.5 % (0.0-2.0); EOSINOPHIL # 0.2 TH/MM3 (0-0.4); EOSINOPHIL % 1.3 % (0.0-4.0); HEMATOCRIT 24.5 % (35.0-46.0); HEMO FLAGS DIFF FINAL; LYMPHOCYTE # 0.8 TH/MM3 (1.0-4.8); MEAN CELL VOLUME 72.4 FL (80.0-100.0); MEAN CORPUSCULAR HEMOGLOBIN 21.7 PG (27.0-34.0); MONO % 10.7 % (0.0-8.0); NEUT % 81.5 % (16.0-70.0); PLATELET COUNT 576 TH/MM3 (150-450); RED BLOOD COUNT 3.39 MIL/MM3 (4.00-5.30); RED CELL DISTRIBUTION WIDTH 15.9 % (11.6-17.2); WHITE BLOOD COUNT 13.4 TH/MM3 (4.0-11.0)
[2017-02-25] MEDS: DEXT 5%-NACL 0.45% 1000 ML INJ 1,000 ML IV SCH ×2 (08:00→17:54)
[2017-02-25] MEDS: DOCUSATE SODIUM 50 MG/SENNA 8.6 MG TAB PO SCH ×2 (08:52→20:44)
[2017-02-25] MEDS: SODIUM CHLORIDE 0.9% FLUSH 10 ML FLUSH IV FLUSH SCH ×2 (08:52→20:45)
--- NOTE | 2017-02-25 11:51 | PD.WCN.NOT ---
Wound Consult Description: Consult for WOUND MANAGEMENT of COCCYX PRESSURE ULCER Communicated with: CHER Scales Dr Recommendation: Every 3 days and PRN for soiling or dislodgement: 1. Cleanse SACRAL wound with NS and gauze 2. Lightly pack NS moistened Maxorb II into wound bed 3. Cover with bordered gauze 4. Date dressing Additional Information: Patient seen on [address] for Coccyx wound evaluation. Patient positioned to her left side with CHER Scales at bedside with family member present. Wet to dry dressing removed to reveal a Stage IV pressure injury noted to SACRUM measuring 3.2cm x 2.8cm x 1cm with 0.4cm of undermining noted from 3 o'clock to 9 o' clock. Wound bed presents with ~50% fascia covering palpated bone and ~50% pink tissue with no active drainage and no odor noted when cleansed with Ns and gauze. Wound margins are epithelializing and periwound is unremarkable. Maxorb was cut into a strip, slightly moistened with NS and lightly packed into wound bed and covered with a bordered gauze that was dated today and can remain in place for 3 days unless soiled or dislodged. Patient had a large bm and was being cleansed by CHER Scales when leaving room. Devi Enriquez [facility] Feb 25, 2017 11:51
[2017-02-25] MEDS ORDERED: PHENYLEPH/NS 1000 MCG/10 ML SYR IV ONE (12:00)
[2017-02-25] MEDS ORDERED: PROPOFOL 200 MG/20 ML AMP IV ONE (12:00)
[2017-02-25] MEDS ORDERED: ONDANSETRON HCL 4 MG/2 ML VIAL IV PUSH ONE (12:00)
[2017-02-25] MEDS ORDERED: SODIUM CHLOR 0.9% 250 ML INJ 250 ML IV ONE (12:00)
--- NOTE | 2017-02-25 12:58 | HHI.PR ---
Subjective Subjective Remarks opens eyes to voice non verbal tachycardic NPO, going to OR today abd. distended, grimaces to palpation daughter at bsd Review of Systems Constitutional Constitutional Remarks 12 POINT ROS UNABLE TO OBTAIN Vitals/Results Intake & Output 02/24/17 02/24/17 02/25/17 15:00 23:00 07:00 Intake Total 718 ml Output Total 0 ml 1200 ml Balance 0 ml -482 ml Intake IV Total 668 ml Tube Irrigant 50 ml Output Urine Total 0 ml 1200 ml Vital Signs Vital Signs Date Time Temp Pulse Resp B/P Pulse Ox O2 Delivery O2 Flow Rate FiO2 02/25/17 09:05 Room Air 02/25/17 08:08 118 02/25/17 08:00 99.2 122 20 130/62 97 02/25/17 04:00 Room Air 02/25/17 04:00 97.9 111 27 126/59 100 02/25/17 01:30 106 24 02/25/17 00:00 Room Air 02/25/17 00:00 98.4 122 27 112/62 95 02/24/17 22:06 126 02/24/17 21:15 Room Air 02/24/17 21:15 101.0 129 36 137/63 93 02/24/17 21:01 125 14 159/71 95 Room Air 02/24/17 18:08 122 16 109/47 94 Room Air 02/24/17 15:04 100 16 02/24/17 14:54 95 Room Air 02/24/17 14:49 99.5 95 22 115/54 95 CBC/BMP: 02/25/17 0650 02/25/17 0650 Lab Results Laboratory Tests Test 02/24/17 02/24/17 02/24/17 02/24/17 15:09 17:02 17:15 17:40 White Blood Count 11.1 TH/MM3 Red Blood Count 3.58 MIL/MM3 Hemoglobin 8.0 GM/DL Hematocrit 25.5 % Mean Corpuscular Volume 71.3 FL Mean Corpuscular Hemoglobin 22.5 PG Mean Corpuscular Hemoglobin 31.5 % Concent Red Cell Distribution Width 16.6 % Platelet Count 633 TH/MM3 Mean Platelet Volume 8.4 FL Neutrophils (%) (Auto) 76.2 % Lymphocytes (%) (Auto) 10.6 % Monocytes (%) (Auto) 11.1 % Eosinophils (%) (Auto) 1.7 % Basophils (%) (Auto) 0.4 % Neutrophils # (Auto) 8.5 TH/MM3 Lymphocytes # (Auto) 1.2 TH/MM3 Monocytes # (Auto) 1.2 TH/MM3 Eosinophils # (Auto) 0.2 TH/MM3 Basophils # (Auto) 0.0 TH/MM3 CBC Comment DIFF FINAL Differential Comment Sodium Level 135 MEQ/L Potassium Level 4.7 MEQ/L Chloride Level 102 MEQ/L Carbon Dioxide Level 27.9 MEQ/L Anion Gap 5 MEQ/L Blood Urea Nitrogen 21 MG/DL Creatinine 0.56 MG/DL Estimat Glomerular Filtration 131 ML/MIN Rate Random Glucose 109 MG/DL Calcium Level 8.9 MG/DL Total Bilirubin 0.2 MG/DL Aspartate Amino Transf 21 U/L (AST/SGOT) Alanine Aminotransferase 16 U/L (ALT/SGPT) Alkaline Phosphatase 111 U/L Total Protein 7.9 GM/DL Albumin 2.0 GM/DL Prothrombin Time 10.4 SEC Prothromb Time International 0.9 RATIO Ratio Activated Partial 30.8 SEC Thromboplast Time Blood Type B POSITIVE Antibody Screen NEGATIVE Crossmatch Leukocyte-Reduced Red Blood Cells Blood Bank Comment Lactic Acid Level 1.6 mmol/L Test 02/24/17 02/25/17 18:00 06:50 Urine Color YELLOW Urine Turbidity CLEAR Urine pH 8.0 Urine Specific [place] 1.019 Urine Protein TRACE mg/dL Urine Glucose (UA) NEG mg/dL Urine Ketones NEG mg/dL Urine Occult Blood NEG Urine Nitrite NEG Urine Bilirubin NEG Urine Urobilinogen LESS THAN 2.0 MG/DL Urine Leukocyte Esterase NEG Urine RBC LESS THAN 1 /hpf Urine WBC 1 /hpf Urine Bacteria RARE /hpf Microscopic Urinalysis Comment CULT NOT INDICATED White Blood Count 13.4 TH/MM3 Red Blood Count 3.39 MIL/MM3 Hemoglobin 7.3 GM/DL Hematocrit 24.5 % Mean Corpuscular Volume 72.4 FL Mean Corpuscular Hemoglobin 21.7 PG Mean Corpuscular Hemoglobin 29.9 % Concent Red Cell Distribution Width 15.9 % Platelet Count 576 TH/MM3 Mean Platelet Volume 8.2 FL Neutrophils (%) (Auto) 81.5 % Lymphocytes (%) (Auto) 6.0 % Monocytes (%) (Auto) 10.7 % Eosinophils (%) (Auto) 1.3 % Basophils (%) (Auto) 0.5 % Neutrophils # (Auto) 11.0 TH/MM3 Lymphocytes # (Auto) 0.8 TH/MM3 Monocytes # (Auto) 1.4 TH/MM3 Eosinophils # (Auto) 0.2 TH/MM3 Basophils # (Auto) 0.1 TH/MM3 CBC Comment DIFF FINAL Differential Comment Sodium Level 139 MEQ/L Potassium Level 4.1 MEQ/L Chloride Level 105 MEQ/L Carbon Dioxide Level 25.3 MEQ/L Anion Gap 9 MEQ/L Blood Urea Nitrogen 13 MG/DL Creatinine 0.61 MG/DL Estimat Glomerular Filtration 118 ML/MIN Rate Random Glucose 111 MG/DL Calcium Level 8.4 MG/DL Microbiology Microbiology 02/24/17 Aerobic Blood Culture - Preliminary, Resulted NO GROWTH IN 1 DAY 02/24/17 Anaerobic Blood Culture - Preliminary, Resulted NO GROWTH IN 1 DAY 02/24/17 Aerobic Blood Culture - Preliminary, Resulted NO GROWTH IN 1 DAY 02/24/17 Anaerobic Blood Culture - Preliminary, Resulted NO GROWTH IN 1 DAY 02/24/17 Gram Stain - Final, Resulted 02/24/17 Wound Culture - Preliminary, Resulted Gram Negative Suraj Gram Positive Cocci Physical Exam General General Appearance: Well Developed, Comfortable, Malnourished Eyes Eye Exam: Pupils Equal, Pupils Reactive Ears & Nose Ears & Nose Exam: Nasal Mucosa [place]man Neck Neck Exam: Neck Supple, Trachea Midline Pulmonary Resp Exam: Decreased Bases Cardiology CV Exam: Tachycardia Gastrointestinal/Abdomen GI Exam: Distended, Bowel Sounds Hypoactive GI Remarks GRIMACES TO PALPATION Musculoskeletal MS Exam: Atrophy MS Remarks CONTRACTURES LLE AND LUE Extremeties Extremities Exam: Trace Edema Extremeties Remarks NO PULSES LEFT FOOT RIGHT PEDAL FAINT Neurologic Neuro Exam: Awake Neuro Remarks NON VERBAL MOVES RUE SPONTANEOUSLY NOT FOLLOWING COMMAND LEFT HEMIPLEGIA Assessment/Plan Problem List: (1) Critical lower limb ischemia (2) Anemia (3) HTN (hypertension) (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 Presented to the emergency room with worsening left ankle and foot wound, x-ray findings concerning for osteomyelitis. Found with gangrene and leg ischemia. Left leg ischemia, gangrene. -Appreciate vascular surgery input, recommends left AKA -NPO -To OR today Left leg infection, x-ray findings of osteomyelitis. Leukocytosis, mild tachycardia. -Wound culture -GNR and GPC, sens pending Continue with empiric antibiotics and follow cultures Chest x-ray findings of right lung masslike density. Unclear if this is a known finding. -discussed findings with daughter, pt. with prior hx of tobacco abuse x 26 years. She will discuss with stepfather and wants CT of chest to find out. She understands that if this is malignant, pt. most will not likely tolerate any treatment due to comorbidities and debilitated status. Will pursue chest CT after surgery. Anemia, normocytic hypochromic. -HH 7.3/24.5, give 1 unit PRBC today -follow hh Stage IV coccyx wound, was seen by wound care nurse -continue with wound care per recommendations. Type 2 diabetes Accu-Cheks before meals and at bedtime with insulin therapy as needed History of prior CVAs as well as intracranial bleed, patient is aphasic with left-sided hemiplegia. Has PEG tube. Continue to monitor patient -We will resume aspirin after surgery. Hypertension, stable Resume BB and CCB SCDs for DVT prophylaxis continue with present care CM consult for SNF placement, family requesting a different facility. Daughter states that pt. will likely to go back with hospice services. Dietitian consult for tube feeding recommendation. Labs in am D/W RN D/W Dr. Miner D/W pt's daughter This patient was seen by myself and Dr. Miner, this note is written on his behalf Problem Qualifiers (1) Anemia: Qualified Code: D50.9 - Iron deficiency anemia, unspecified iron deficiency anemia type (2) HTN (hypertension): Qualified Code: I10 - Essential hypertension (3) UTI (urinary tract infection): Qualified Code: N39.0 - Urinary tract infection without hematuria, site unspecified Rivka Chan Feb 25, 2017 12:58
[2017-02-25] MEDS: DILTIAZEM HCL 60 MG TAB G-TUBE SCH ×3 (13:22→20:44)
[2017-02-25] MEDS ORDERED: KETAMINE HCL 500 MG/5 ML VIAL ONE (15:36)
--- NOTE | 2017-02-25 16:43 | HHI.PR ---
Immediate Post Op Note Procedure Date: Feb 25, 2017 Pre Op Diagnosis: L ankle osteomyelitis, non-ambulatory status Post Op Diagnosis: L ankle osteomyelitis, non-ambulatory status Surgeon: Yoan Mccray Independent Freight Agent(s): none Procedure: L AKA Findings: no infection at AKA level decent perfusion Complications: none apparent Specimen(s) removed: LEFT leg Estimated blood loss: 100mL Anesthesia: LMA Drains: None Fluids: 500mL IVF Patient to: PACU Patient Condition: Good Implant/Devices: SEE IMPLANT LOG (if applicable) Date/Time of Procedure: SEE SURGICAL CARE RECORD Yoan Mccray MD Feb 25, 2017 16:43
[2017-02-25] MEDS ORDERED: fentaNYL CITRATE 250 MCG/5 ML AMP ONE (17:11)
[2017-02-25] MEDS ORDERED: *morphine SULFATE 8 MG/ML PERIprocedure ONLY ONE (17:17)
[2017-02-25] MEDS ORDERED: DO NOT ADM ANY ANTICOAGULANT DRUGS PRN ×2 (17:30→17:45)
[2017-02-25] MEDS: VANCOMYCIN 1,000 MG/NS 250 ML IV SCH ×2 (18:15)
--- NOTE | 2017-02-25 19:45 | RADRPT ---
EXAM DATE/TIME: 02/25/2017 19:14 [place] COMPARISON: No previous studies available for comparison. INDICATIONS : Abdominal pain. MEDICAL HISTORY : Hypertension. Diabetes, MRSA SURGICAL HISTORY : None. ENCOUNTER: Initial ACUITY: 2 days PAIN SCORE: 10/10 LOCATION: Bilateral abdomen. FINDINGS: A single AP supine view of the abdomen and pelvis was obtained and demonstrates a gastrostomy tube pr ojecting over the left upper abdomen. Gas and stool is noted segmentally in the colon. There is no ev idence of free air or mass effect. There are small linear calcifications project over the right kidne y. Vascular calcifications as well. There is diffuse osteopenia. Lung bases are clear. CONCLUSION: 1. Unremarkable bowel gas pattern. 2. Vascular calcifications. 3. Gastrostomy tube in place. 4. Small linear calcifications projected over the right kidney. Jacky Lobo MD on February 25, 2017 at 19:41 Board Certified Radiologist. This report was verified electronically.
[2017-02-25] MEDS: METOPROLOL TARTRATE 100 MG TAB G-TUBE SCH (20:44)
[2017-02-26] VITALS (8 sets, daily range): BP systolic 115–169; BP diastolic 58–78; PULSE 71–104; RESP 18–19; TEMP 97.3–98.6; O2SAT 93–100
[2017-02-26] MEDS: PIPERACIL-TAZO 3.375 GM PREMIX 50 ML IV SCH ×4 (04:28→23:41)
[2017-02-26] MEDS ORDERED: PHARMACY ORDERED LAB ONE (05:45)
[2017-02-26] MEDS ORDERED: cloNIDine HCL 0.1 MG TAB PO PRN (05:45)
[2017-02-26] MEDS: INSULIN ASPART SUPPLEMENTAL SCALE SQ SCH ×4 (07:00→20:00)
[2017-02-26] MEDS: VANCOMYCIN 1,000 MG/NS 250 ML IV SCH ×2 (07:04)
[2017-02-26 07:57] LABS: HEMATOCRIT 28.2 % (35.0-46.0); MEAN CELL VOLUME 74.3 FL (80.0-100.0); MEAN CORPUSCULAR HEMOGLOBIN 22.8 PG (27.0-34.0); MEAN CORPUSCULAR HGB CONC 30.6 % (32.0-36.0); PLATELET COUNT 552 TH/MM3 (150-450); RED BLOOD COUNT 3.79 MIL/MM3 (4.00-5.30); RED CELL DISTRIBUTION WIDTH 16.9 % (11.6-17.2); REVIEW FLAG FINAL; WHITE BLOOD COUNT 13.4 TH/MM3 (4.0-11.0)
[2017-02-26 08:15] LABS: BICARBONATE 21.4 MEQ/L (21.0-32.0); POTASSIUM 3.7 MEQ/L (3.5-5.1)
[2017-02-26] MEDS: METOPROLOL TARTRATE 100 MG TAB G-TUBE SCH ×2 (08:58→20:00)
[2017-02-26] MEDS: DOCUSATE SODIUM 50 MG/SENNA 8.6 MG TAB PO SCH ×2 (08:58→20:00)
[2017-02-26] MEDS: SODIUM CHLORIDE 0.9% FLUSH 10 ML FLUSH IV FLUSH SCH ×2 (08:58→23:41)
[2017-02-26] MEDS: DILTIAZEM HCL 60 MG TAB G-TUBE SCH ×4 (08:58→20:00)
[2017-02-26] MEDS ORDERED: PNEUMOCOCCAL POLYVALENT INJ 25 MCG/0.5 ML SYR IM ONE (10:00)
--- NOTE | 2017-02-26 10:21 | HHI.PR ---
Subjective Subjective Remarks more awake today, actually talking some. Says van, oriented to self denies pain when asked no fever no cp no sob Review of Systems Constitutional Constitutional Remarks 12 POINT ROS limited Vitals/Results Intake & Output 02/25/17 02/25/17 02/26/17 15:00 23:00 07:00 Intake Total 800 ml 1138 ml 622 ml Output Total 350 ml 575 ml 900 ml Balance 450 ml 563 ml -278 ml Intake Oral 0 ml 0 ml 0 ml IV Total 525 ml 588 ml 622 ml Packed Cells 275 ml Other 550 ml Output Urine Total 350 ml 475 ml 900 ml Estimated Blood Loss 100 ml # Bowel Movements 1 0 Vital Signs Vital Signs Date Time Temp Pulse Resp B/P Pulse Ox O2 Delivery O2 Flow Rate FiO2 02/26/17 08:07 97.3 95 19 155/69 100 02/26/17 08:00 103 02/26/17 08:00 Nasal Cannula 2.00 02/26/17 04:41 97.8 71 18 169/77 97 02/26/17 04:35 168/78 02/26/17 00:39 98.4 100 18 128/66 96 02/25/17 20:00 103 02/25/17 20:00 Nasal Cannula 2.00 02/25/17 20:00 98.6 104 16 132/67 97 02/25/17 18:00 99.1 116 24 153/72 97 Nasal Cannula 2 02/25/17 17:45 116 27 147/70 98 Nasal Cannula 2 02/25/17 17:30 117 20 162/78 99 Nasal Cannula 2 02/25/17 17:15 117 24 161/76 100 Nasal Cannula 2 02/25/17 17:06 Nasal Cannula 2 02/25/17 17:00 113 24 142/66 100 Simple Mask 5 02/25/17 16:45 98.5 116 24 125/60 100 Simple Mask 5 02/25/17 13:30 97.1 114 20 148/70 100 02/25/17 13:15 96.2 115 20 147/67 100 02/25/17 12:00 96.2 115 20 147/67 100 CBC/BMP: 02/26/17 0703 02/26/17 0703 Lab Results Laboratory Tests Test 02/26/17 07:03 White Blood Count 13.4 TH/MM3 Red Blood Count 3.79 MIL/MM3 Hemoglobin 8.6 GM/DL Hematocrit 28.2 % Mean Corpuscular Volume 74.3 FL Mean Corpuscular Hemoglobin 22.8 PG Mean Corpuscular Hemoglobin 30.6 % Concent Red Cell Distribution Width 16.9 % Platelet Count 552 TH/MM3 Mean Platelet Volume 8.1 FL Sodium Level 135 MEQ/L Potassium Level 3.7 MEQ/L Chloride Level 105 MEQ/L Carbon Dioxide Level 21.4 MEQ/L Anion Gap 9 MEQ/L Blood Urea Nitrogen 11 MG/DL Creatinine 0.44 MG/DL Estimat Glomerular Filtration 173 ML/MIN Rate Random Glucose 145 MG/DL Calcium Level 8.5 MG/DL Vancomycin Level Trough 11.9 MCG/ML Physical Exam General General Appearance: Well Developed, Comfortable, Malnourished Eyes Eye Exam: Pupils Equal, Pupils Reactive Ears & Nose Ears & Nose Exam: Nasal Mucosa [place] Neck Neck Exam: Neck Supple, Trachea Midline Pulmonary Resp Exam: Decreased Bases Cardiology CV Exam: Regular Gastrointestinal/Abdomen GI Exam: Soft, Non-Tender, Bowel Sounds Present, Non-Distended Musculoskeletal MS Exam: Atrophy MS Remarks CONTRACTURES LUE Integumentary Skin Exam: Lesion(s) Extremeties Extremeties Remarks left aka, stump dressing D/I Neurologic Neuro Exam: Awake Neuro Remarks NON VERBAL MOVES RUE SPONTANEOUSLY NOT FOLLOWING COMMAND LEFT HEMIPLEGIA Assessment/Plan Problem List: (1) Critical lower limb ischemia (2) Anemia (3) HTN (hypertension) (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 Presented to the emergency room with worsening left ankle and foot wound, x-ray findings concerning for osteomyelitis. Found with gangrene and leg ischemia. Left leg ischemia, gangrene. -Appreciate vascular surgery input, recommends left AKA -S/P L AKA 02/25 -post op care, pain management. -stable Left leg infection, x-ray findings of osteomyelitis. Leukocytosis, mild tachycardia. -Wound culture -prot mirabilis, group d enterococcus, GNR Continue with empiric antibiotics, poss dc tomorrow Chest x-ray findings of right lung masslike density. Unclear if this is a known finding. -discussed findings with daughter, pt. with prior hx of tobacco abuse x 26 years. She will discuss with stepfather and wants CT of chest to find out. She understands that if this is malignant, pt. most will not likely tolerate any treatment due to comorbidities and debilitated status. Will pursue chest CT after surgery. -will order CT chest Anemia, normocytic hypochromic. -HH 7.3/24.5, s/p 1 unit PRBC, HH stable 8.6/28.2 -follow hh Stage IV coccyx wound, was seen by wound care nurse -continue with wound care per recommendations. Type 2 diabetes Accu-Cheks before meals and at bedtime with insulin therapy as needed History of prior CVAs as well as intracranial bleed, patient is aphasic with left-sided hemiplegia. Has PEG tube. Continue to monitor patient Hypertension, stable continue BB and CCB SCDs for DVT prophylaxis CM consult for SNF placement, family requesting a different facility. Daughter states that pt. will likely to go back with hospice services. start tube feeding, Glucerna 1.5 at 55/hr, start 30 and advance + water flushes DC planning in progress Labs in am D/W RN D/W Dr. Miner This patient was seen by myself and Dr. Miner, this note is written on his behalf Problem Qualifiers (1) Anemia: Qualified Code: D50.9 - Iron deficiency anemia, unspecified iron deficiency anemia type (2) HTN (hypertension): Qualified Code: I10 - Essential hypertension (3) UTI (urinary tract infection): Qualified Code: N39.0 - Urinary tract infection without hematuria, site unspecified Rivka Chan Feb 26, 2017 10:21 Rivka Chan Feb 26, 2017 10:21
--- NOTE | 2017-02-26 11:36 | PD.VS.PN ---
Subjective POD #: 1 Procedure(s): L AKA Subjective/Hospital Course Pt in bed with daughter at the BS Pt appears comfortable Pt appears more awake and alert this am Pain Controlled (Mallika Rizvi) Objective Vitals/I&O Date Time Temp Pulse Resp B/P Pulse Ox O2 Delivery O2 Flow Rate FiO2 02/26/17 08:07 97.3 95 19 155/69 100 02/26/17 08:00 103 02/26/17 08:00 Nasal Cannula 2.00 02/26/17 04:41 97.8 71 18 169/77 97 02/26/17 04:35 168/78 02/26/17 00:39 98.4 100 18 128/66 96 02/25/17 20:00 103 02/25/17 20:00 Nasal Cannula 2.00 02/25/17 20:00 98.6 104 16 132/67 97 02/25/17 18:00 99.1 116 24 153/72 97 Nasal Cannula 2 02/25/17 17:45 116 27 147/70 98 Nasal Cannula 2 02/25/17 17:30 117 20 162/78 99 Nasal Cannula 2 02/25/17 17:15 117 24 161/76 100 Nasal Cannula 2 02/25/17 17:06 Nasal Cannula 2 02/25/17 17:00 113 24 142/66 100 Simple Mask 5 02/25/17 16:45 98.5 116 24 125/60 100 Simple Mask 5 02/25/17 13:30 97.1 114 20 148/70 100 02/25/17 13:15 96.2 115 20 147/67 100 02/25/17 12:00 96.2 115 20 147/67 100 Exam: GENERAL: Awake and alert in NAD SKIN: Warm and dry. Left AKA dressing c/d/i with and ananya wrap MUSCULOSKELETAL: No cyanosis, or edema. Laboratory Laboratory Tests Test 02/26/17 07:03 White Blood Count 13.4 Red Blood Count 3.79 Hemoglobin 8.6 Hematocrit 28.2 Mean Corpuscular Volume 74.3 Mean Corpuscular Hemoglobin 22.8 Mean Corpuscular Hemoglobin 30.6 Concent Red Cell Distribution Width 16.9 Platelet Count 552 Mean Platelet Volume 8.1 Sodium Level 135 Potassium Level 3.7 Chloride Level 105 Carbon Dioxide Level 21.4 Anion Gap 9 Blood Urea Nitrogen 11 Creatinine 0.44 Estimat Glomerular Filtration 173 Rate Random Glucose 145 Calcium Level 8.5 Vancomycin Level Trough 11.9 Date/Time Procedure Status Source Growth 02/24/17 15:14 Gram Stain - Final Resulted Wound Foot 02/24/17 15:14 Wound Culture - Preliminary Resulted Proteus Mirabilis Group D Enterococcus Gram Negative Suraj 02/24/17 15:05 Aerobic Blood Culture - Preliminary Resulted Blood Peripheral NO GROWTH IN 2 DAYS 02/24/17 15:05 Anaerobic Blood Culture - Preliminary Resulted Blood Peripheral NO GROWTH IN 2 DAYS (Mallika Rizvi) Assessment and Plan Assessment: (1) Critical lower limb ischemia Status: Acute Plan Plan Pt doing well this am and appears more alert Continue Pain control Will remove dressing in the next few days Mallika JOSE [facility]/[place] [phone] (Mallika Rizvi) Plan I agree with above. Patient less confused per daughter after amputation. DC planning to SNF with PT. Dressing will be removed over the weekend or before DC to SNF for rehab. Sy Kam DO, FACS (Sy Kam DO) Mallika Rizvi Feb 26, 2017 11:36 Sy Kam DO Feb 27, 2017 04:57
[2017-02-26] MEDS: DEXT 5%-NACL 0.45% 1000 ML INJ 1,000 ML IV SCH (14:36)
--- NOTE | 2017-02-26 16:53 | RADRPT ---
EXAM DATE/TIME: 02/26/2017 16:24 [place] COMPARISON: CHEST SINGLE AP, February 24, 2017, 15:29. INDICATIONS : Mass RADIATION DOSE: 3.38 CTDIvol (mGy) MEDICAL HISTORY : Cardiovascular disease. Hypertension. Diabetes mellitus type 2. SURGICAL HISTORY : Tracheostomy ENCOUNTER: Initial ACUITY: 2 days PAIN SCALE: 5/10 LOCATION: Bilateral chest TECHNIQUE: Volumetric scanning of the chest was performed. Using automated exposure control and adjustment of t he mA and/or kV according to patient size, radiation dose was kept as low as reasonably achievable to obtain optimal diagnostic quality images. DICOM format image data is available electronically for r eview and comparison. FINDINGS: LUNGS: A solid mass measuring 4.2 x 2.9 cm in size is identified in the superior segment of the right lower lobe. Emphysematous changes identified in the upper lobes. PLEURAE: There is no pleural thickening or pleural effusion. MEDIASTINUM: The heart and great vessels demonstrate no acute abnormality. There is no mediastinal or hilar lymph adenopathy. AXILLAE: Within normal limits. No lymphadenopathy. MUSCULOSKELETAL: Within normal limits for patient age. MISCELLANEOUS: The visualized upper abdominal organs demonstrate no acute abnormality. CONCLUSION: 4.2 cm right lower lobe pulmonary mass characteristic of bronchogenic malignancy. No evidence of gross hilar or mediastinal lymphadenopathy. COPD with emphysematous changes. Adrian Seay MD on February 26, 2017 at 16:42 Board Certified Radiologist. This report was verified electronically.
[2017-02-26] MEDS: VANCOMYCIN INJ 1,250 MG in SODIUM CHLOR 0.9% 250 ML INJ 250 ML IV SCH (17:09)
[2017-02-27] VITALS: BP 169/76; PULSE 100; RESP 18; TEMP 98.9; O2SAT 98
[2017-02-27 04:00] VITALS: BP 163/77; PULSE 108; RESP 18; TEMP 99.5; O2SAT 99
[2017-02-27] MEDS: PIPERACIL-TAZO 3.375 GM PREMIX 50 ML IV SCH ×4 (05:18→20:46)
[2017-02-27] MEDS: VANCOMYCIN INJ 1,250 MG in SODIUM CHLOR 0.9% 250 ML INJ 250 ML IV SCH ×2 (06:51→18:25)
[2017-02-27] MEDS: INSULIN ASPART SUPPLEMENTAL SCALE SQ SCH ×4 (06:54→20:46)
[2017-02-27] MEDS: DILTIAZEM HCL 60 MG TAB G-TUBE SCH ×4 (07:53→20:46)
[2017-02-27] MEDS: METOPROLOL TARTRATE 100 MG TAB G-TUBE SCH ×2 (07:53→20:46)
[2017-02-27] MEDS: DOCUSATE SODIUM 50 MG/SENNA 8.6 MG TAB PO SCH ×2 (07:53→20:46)
[2017-02-27] MEDS: SODIUM CHLORIDE 0.9% FLUSH 10 ML FLUSH IV FLUSH SCH ×2 (07:54→20:46)
[2017-02-27 08:00] VITALS: BP 175/74; PULSE 88; RESP 20; TEMP 97.8; O2SAT 97
--- NOTE | 2017-02-27 08:05 | PD.VS.PN ---
Subjective POD #: 2 Procedure(s): L AKA Subjective/Hospital Course Pt in bed Pt appears comfortable Pain Controlled (Mallika Rizvi) Objective Vitals/I&O Date Time Temp Pulse Resp B/P Pulse Ox O2 Delivery O2 Flow Rate FiO2 02/27/17 04:00 99.5 108 18 163/77 99 02/27/17 00:00 98.9 100 18 169/76 98 02/27/17 00:00 Room Air 02/26/17 20:18 104 02/26/17 20:00 Room Air 02/26/17 15:00 89 02/26/17 12:23 98.6 94 19 158/70 93 02/26/17 08:07 97.3 95 19 155/69 100 02/27/17 02/27/17 02/27/17 07:00 15:00 23:00 Intake Total 964 ml Output Total 350 ml Balance 614 ml Exam: GENERAL: Alert in nad SKIN: Warm and dry/ L AKA with dressing intact c/d with ananya wrap MUSCULOSKELETAL: No cyanosis, or edema. Laboratory Date/Time Procedure Status Source Growth 02/24/17 15:14 Gram Stain - Final Resulted Wound Foot 02/24/17 15:14 Wound Culture - Preliminary Resulted Proteus Mirabilis Group D Enterococcus Gram Negative Suraj 02/24/17 15:05 Aerobic Blood Culture - Preliminary Resulted Blood Peripheral NO GROWTH IN 2 DAYS 02/24/17 15:05 Anaerobic Blood Culture - Preliminary Resulted Blood Peripheral NO GROWTH IN 2 DAYS (Mallika Rizvi) Assessment and Plan Assessment: (1) Critical lower limb ischemia Status: Acute Plan Plan PT/OOB DC planning to SNF with PT. Dressing will be removed over the weekend or before DC to SNF for rehab Mallika JOSE [facility]/[place] [phone] (Mallika Rizvi) Plan Patient had dressing removed/change because sitting in . Fortunately, had incisional area sealed. Stump looked clean. I agree with DC planning. Sy Kam DO, FACS (Sy Kam DO) Mallika Rizvi Feb 27, 2017 08:05 Sy Kam DO Feb 27, 2017 11:54
[2017-02-27 09:29] LABS: HEMATOCRIT 27.6 % (35.0-46.0); MEAN CELL VOLUME 74.4 FL (80.0-100.0); MEAN CORPUSCULAR HEMOGLOBIN 22.8 PG (27.0-34.0); MEAN CORPUSCULAR HGB CONC 30.6 % (32.0-36.0); PLATELET COUNT 608 TH/MM3 (150-450); RED BLOOD COUNT 3.71 MIL/MM3 (4.00-5.30); RED CELL DISTRIBUTION WIDTH 17.4 % (11.6-17.2); REVIEW FLAG FINAL; WHITE BLOOD COUNT 14.8 TH/MM3 (4.0-11.0)
[2017-02-27 11:49] VITALS: BP 163/78; PULSE 99; RESP 26; TEMP 99.2; O2SAT 100
--- NOTE | 2017-02-27 13:53 | HHI.PR ---
Subjective Subjective Remarks Opens eyes to verbal Nods head but no conversation for now No facial grimace Afebrile (Kaci Johns) Review of Systems Constitutional Constitutional: Fatigue, Weakness Constitutional Remarks 10 point ROS done positives noted (Kaci Johns) Musculoskeletal MS: Weakness, Stiffness MS Remarks Left AKA dressing clean dry and intact (Kaci Johns) Neurologic Neurologic: Lethargic (mild) (Kaci Johns) Psychiatric Psychiatric Remarks Quiet nonverbal this a.m. (Kaci Johns) Vitals/Results Intake & Output 02/26/17 02/26/17 02/27/17 15:00 23:00 07:00 Intake Total 178 ml 964 ml Output Total 1700 ml 350 ml Balance -1522 ml 614 ml Intake Oral 0 ml 0 ml IV Total 424 ml Tube Feeding 178 ml 440 ml Other 100 ml Output Urine Total 1700 ml 350 ml # Bowel Movements 0 Vital Signs Vital Signs Date Time Temp Pulse Resp B/P Pulse Ox O2 Delivery O2 Flow Rate FiO2 02/27/17 11:49 99.2 99 26 163/78 100 02/27/17 08:00 97.8 88 20 175/74 97 02/27/17 04:00 99.5 108 18 163/77 99 02/27/17 00:00 98.9 100 18 169/76 98 02/27/17 00:00 Room Air 02/26/17 20:18 104 02/26/17 20:00 Room Air 02/26/17 15:00 89 (Kaci Johns) CBC/BMP: 02/27/17 0809 02/26/17 0703 Lab Results Laboratory Tests Test 02/27/17 08:09 White Blood Count 14.8 TH/MM3 Red Blood Count 3.71 MIL/MM3 Hemoglobin 8.4 GM/DL Hematocrit 27.6 % Mean Corpuscular Volume 74.4 FL Mean Corpuscular Hemoglobin 22.8 PG Mean Corpuscular Hemoglobin 30.6 % Concent Red Cell Distribution Width 17.4 % Platelet Count 608 TH/MM3 Mean Platelet Volume 8.3 FL Current Medications Administered Medications Medications (Trade) Dose Ordered Sig/Eufemia Route PRN Reason Start Time Stop Time Status Last Admin Dose Admin Sodium Chloride (NS Flush) 2 ml BID IV FLUSH 02/24/17 21:00 02/27/17 07:54 Acetaminophen (Tylenol) 650 mg Q4H PRN PO TEMP > 100.4 02/24/17 18:15 02/24/17 22:45 Senna/Docusate Sodium 1 tab 1 tab BID PO 02/24/17 21:00 02/27/17 07:53 Dextrose/Sodium Chloride 1,000 ml @ 75 mls/hr [id number] IV 02/24/17 20:00 02/27/17 14:09 Piperacillin Sod/ Tazobactam Sod (Zosyn 3.375 Gm Premix) 50 ml @ 100 mls/hr Q6H IV 02/24/17 22:00 02/27/17 11:12 Diltiazem HCl (Cardizem) 60 mg QID G-TUBE 02/25/17 13:00 02/27/17 14:11 Metoprolol Tartrate 100 mg 100 mg Q12HR G-TUBE 02/25/17 21:00 02/27/17 07:53 Vancomycin HCl/ Sodium Chloride (Vancomycin Inj/ NS 250 ml Inj) 262.5 ml @ 250 mls/hr Q12H IV 02/26/17 18:00 02/27/17 06:51 (Kaci Johns) Physical Exam General General Appearance: Well Developed, Comfortable, Malnourished Appearance Remarks Thin (Kaci Johns) Eyes Eye Exam: Pupils Equal, Pupils Reactive (Kaci Johns) Ears & Nose Ears & Nose Exam: Nasal Mucosa [place] (Kaci Johns) Neck Neck Exam: Neck Supple, Trachea Midline (Kaci Johns) Pulmonary Resp Exam: Decreased Bases, Diminished Breath Sounds, Poor Inspiratory Effort ( Kaci Johns) Cardiology CV Exam: Regular (Kaci Johns) Gastrointestinal/Abdomen GI Exam: Soft, Non-Tender, Bowel Sounds Present, Non-Distended (Kaci Johns) Musculoskeletal MS Exam: Atrophy (Kaci Johns) Integumentary Skin Exam: Dry, Lesion(s) (Kaci Johns) Extremeties Extremities Exam: No Edema (Kaci Johns) Neurologic Neuro Exam: Awake Neuro Remarks Non-talkative this morning but nodded head (Kaci Johns) Assessment/Plan Problem List: (1) Critical lower limb ischemia (2) Anemia (3) HTN (hypertension) (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, managed as type 2 (6) Subacute osteomyelitis, left ankle and foot (7) History of CVA with residual deficit (8) Mass of right lung (9) UTI (urinary tract infection) (10) Decubitus ulcer of sacral region, stage 4 Assessment/Plan Assessment/Plan Vital signs reviewed, monitor BP at 175/74. IV when necessary meds for BP . Afebrile Labs reviewed, leukocytosis continues at 14.8. Patient is receiving wound care for coccyx wound Continue antibiotic therapy, hyponatremia mild 135, blood cultures negative so far Left leg ischemia, gangrene. Infection -Appreciate vascular surgery input, recommends left AKA -S/P L AKA 02/25 -post op care, pain management. -stable Chest x-ray findings of right lung masslike density, 4.[address] Will need to discuss further a course of action with family and Dr. Miner. At this point in time patient is status post AKA, and is not stable for any invasive workup. Anemia, monitor No acute changes for now Stage IV coccyx wound, was seen by wound care nurse -continue with wound care per recommendations. Type 2 diabetes Accu-Cheks before meals and at bedtime with insulin therapy as needed History of prior CVAs as well as intracranial bleed, patient is aphasic with left-sided hemiplegia. Has PEG tube. Continue to monitor SCDs for DVT prophylaxis CM consult for SNF placement, family requesting a different facility. Discussed with case management today. She has not been able to get in touch with daughter. Daughter had called area on at this morning DC planning in progress when patient is stable from postop perspective (Kaci Johns) Assessment/Plan Patient seen and examined as above [id number] time spent with patient Labs reviewed CT scan reviewed Plan of care discussed with ASSOCIATE MANAGER [employer]ETING discussed with RN Will try to discuss with patient's family (Brooklynn Miner MD) Problem Qualifiers (1) Anemia: Qualified Code: D50.9 - Iron deficiency anemia, unspecified iron deficiency anemia type (2) HTN (hypertension): Qualified Code: I10 - Essential hypertension (3) UTI (urinary tract infection): Qualified Code: N39.0 - Urinary tract infection without hematuria, site unspecified Kaci Johns Feb 27, 2017 13:53 Brooklynn Miner MD Feb 27, 2017 16:44
[2017-02-27] MEDS: DEXT 5%-NACL 0.45% 1000 ML INJ 1,000 ML IV SCH (14:09)
--- NOTE | 2017-02-27 14:53 | MP ---
cc: YOAN MCCRAY MD DATE OF SURGERY: 02/25/2017 PREOPERATIVE DIAGNOSIS Non-ambulatory status, left ankle osteomyelitis. POSTOPERATIVE DIAGNOSIS Non-ambulatory status, left ankle osteomyelitis. PROCEDURE Left above-knee amputation. ATTENDING SURGEON Yoan Mccray MD ANESTHESIA General. INDICATION Ms. Marrufo is an unfortunate 66-year-old female with left ankle osteomyelitis. She is non-ambulatory from a stroke and presents to the emergency department with ermias osteomyelitis and infection of her ankle. After discussion with the patient's daughter and as the patient is noncommunicative, she was offered an above knee amputation. DESCRIPTION OF PROCEDURE Informed consent was obtained from the patient's family and she was taken to the operating room and placed supine on the operating table and appropriate time-out was taken to ensure the patient identity, the operative site and planned procedure. Zosyn was administered prior to skin incision and Zosyn and vancomycin will be continued postoperatively for ongoing treatment of an infection. Everyone in the room agreed with time-out and we proceeded. Her left leg was prepped and draped. An incision was made in the distal thigh, carried down to subcutaneous tissue with electrocautery. It was fish-mouthed medial and laterally. The muscle was divided with electrocautery. We dissected down to the bone. The periosteum was elevated with a laparotomy pad. The bone was transected with oscillating saw. The popliteal artery and vein were clamped, transected and the leg was passed off the table. The popliteal artery and vein were surgically ligated with silk suture. The wound was irrigated, made hemostatic and closed with 2-0 Polysorb and skin mitchell. The sponge and needle counts were correct at the end of the case. I was present and scrubbed and performed the entire procedure. Yoan Mccray MD RJF/TLL /6:14 PM /2:43 PM
[2017-02-27 16:00] VITALS: BP 128/83; PULSE 106; RESP 20; TEMP 98.2; O2SAT 98
[2017-02-27 20:00] VITALS: BP 131/82; PULSE 108; PULSE 111; RESP 18; TEMP 98.1; O2SAT 100
[2017-02-28] VITALS (7 sets, daily range): BP systolic 102–166; BP diastolic 66–83; PULSE 84–122; RESP 18–28; TEMP 98.9–99.9; O2SAT 96–100
[2017-02-28] MEDS: PIPERACIL-TAZO 3.375 GM PREMIX 50 ML IV SCH ×4 (02:42→22:56)
[2017-02-28] MEDS ORDERED: PHARMACY ORDERED LAB ONE (05:45)
[2017-02-28] MEDS: VANCOMYCIN INJ 1,250 MG in SODIUM CHLOR 0.9% 250 ML INJ 250 ML IV SCH ×2 (05:57→17:47)
[2017-02-28] MEDS: DEXT 5%-NACL 0.45% 1000 ML INJ 1,000 ML IV SCH ×2 (06:04→17:48)
[2017-02-28] MEDS: INSULIN ASPART SUPPLEMENTAL SCALE SQ SCH ×4 (06:35→23:11)
[2017-02-28] MEDS: METOPROLOL TARTRATE 100 MG TAB G-TUBE SCH ×2 (08:11→22:56)
[2017-02-28] MEDS: DOCUSATE SODIUM 50 MG/SENNA 8.6 MG TAB PO SCH ×2 (08:11→21:00)
[2017-02-28] MEDS: DILTIAZEM HCL 60 MG TAB G-TUBE SCH (08:11)
[2017-02-28] MEDS: SODIUM CHLORIDE 0.9% FLUSH 10 ML FLUSH IV FLUSH SCH ×2 (08:11→21:00)
[2017-02-28] MEDS ORDERED: DILTIAZEM HCL 30 MG TAB PO SCH (13:00)
--- NOTE | 2017-02-28 13:06 | HHI.PR ---
Subjective Subjective Remarks Opens eyes to verbal Nods head but no conversation for now No facial grimace Afebrile (Kaci Johns) Review of Systems Constitutional Constitutional: Fatigue, Weakness Constitutional Remarks 10 point ROS done positives noted (Kaci Johns) Musculoskeletal MS: Weakness, Stiffness MS Remarks Left AKA dressing clean dry and intact (Kaci Johns) Neurologic Neurologic: Lethargic (mild) (Kaci Johns) Psychiatric Psychiatric Remarks Quiet nonverbal this a.m. (Kaci Johns) Vitals/Results Intake & Output 02/27/17 02/27/17 02/28/17 15:00 23:00 07:00 Intake Total 0 ml 0 ml 3002 ml Output Total 1000 ml 500 ml 250 ml Balance -1000 ml -500 ml 2752 ml Intake Oral 0 ml 0 ml 0 ml IV Total 1942 ml Tube Feeding 660 ml Tube Irrigant 400 ml Output Urine Total 1000 ml 500 ml 250 ml # Bowel Movements 1 0 0 Vital Signs Vital Signs Date Time Temp Pulse Resp B/P Pulse Ox O2 Delivery O2 Flow Rate FiO2 02/28/17 12:00 99.2 96 21 151/73 98 02/28/17 08:00 99.0 84 20 102/66 99 02/28/17 04:00 98.9 122 18 156/72 99 02/28/17 00:00 99.1 98 18 166/83 100 02/27/17 20:00 111 02/27/17 20:00 98.1 108 18 131/82 100 02/27/17 20:00 Room Air 02/27/17 16:00 98.2 106 20 128/83 98 (Kaci Johns) CBC/BMP: 02/27/17 0809 02/26/17 0703 Lab Results Laboratory Tests Test 02/28/17 05:22 Vancomycin Level Trough 16.7 MCG/ML (Kaci Johns) Physical Exam General General Appearance: Well Developed, Comfortable, Malnourished Appearance Remarks Thin (Kaci Johns) Eyes Eye Exam: Pupils Equal, Pupils Reactive (Kaci Johns) Ears & Nose Ears & Nose Exam: Nasal Mucosa [place] (Kaci Johns. [employer] PLANT DISPATCHER) Neck Neck Exam: Neck Supple, Trachea Midline (Kaci Johns M. G[employer] PLANT DISPATCHER) Pulmonary Resp Exam: Decreased Bases, Diminished Breath Sounds, Poor Inspiratory Effort ( Kaci Johns M. G[employer] PLANT DISPATCHER) Cardiology CV Exam: Regular (Kaci Johns M. [employer] PLANT DISPATCHER) Gastrointestinal/Abdomen GI Exam: Soft, Non-Tender, Bowel Sounds Present, Non-Distended (Kaci Johns M. [employer] PLANT DISPATCHER) Musculoskeletal MS Exam: Atrophy (Nat,Susan M. [employer] PLANT DISPATCHER) Integumentary Skin Exam: Dry, Lesion(s) (Kaci Johns M. [employer] PLANT DISPATCHER) Extremeties Extremities Exam: No Edema (Kaci Johns M. G[employer] PLANT DISPATCHER) Neurologic Neuro Exam: Awake Neuro Remarks Non-talkative this morning but nodded head (Kaci Johns. G[employer] PLANT DISPATCHER) Assessment/Plan Problem List: (1) Critical lower limb ischemia (2) Anemia (3) HTN (hypertension) (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, managed as type 2 (6) Subacute osteomyelitis, left ankle and foot (7) History of CVA with residual deficit (8) Mass of right lung (9) UTI (urinary tract infection) (10) Decubitus ulcer of sacral region, stage 4 Assessment/Plan (1) Critical lower limb ischemia (2) Anemia (3) HTN (hypertension) (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, managed as type 2 (6) Subacute osteomyelitis, left ankle and foot (7) History of CVA with residual deficit (8) Mass of right lung (9) UTI (urinary tract infection) (10) Decubitus ulcer of sacral region, stage 4 11. Tachycardia Vital signs reviewed, low-grade fever 99.2 axillary, tachycardia during the nighttime. We'll change Cardizem time frames to every 6 instead of 4 times a day maintain same dose 60 mg. Labs reviewed, Patient is receiving wound care for coccyx wound Continue antibiotic therapy, Left leg ischemia, gangrene. Infection -Appreciate vascular surgery input, -S/P L AKA 02/25 -post op care, pain management. -stable Chest x-ray findings of right lung masslike density, 4.[address] Will need to discuss further a course of action with family and Dr. Miner. Anemia, monitor No acute changes for now Stage IV coccyx wound, was seen by wound care nurse -continue with wound care per recommendations. Type 2 diabetes Accu-Cheks before meals and at bedtime with insulin therapy as needed History of prior CVAs as well as intracranial bleed, patient is aphasic with left-sided hemiplegia. Has PEG tube. Feedings started Glucerna 1.5, 55 cc an hour, tolerating well SCDs for DVT prophylaxis CM consult for SNF placement, family requesting a different facility. Discussed with case management today. She has not been able to get in touch with daughter. Daughter had called area on at this morning DC planning in progress when patient is stable (Kaci Johns) Assessment/Plan Patient seen and examined as above [id number] time spent with patient Labs reviewed Medications reviewed Plan of care discussed with GAS PLANT DISPATCHER discussed with RN Labs for tomorrow Continue antibiotic for the time being (Brooklynn Miner MD) Problem Qualifiers (1) Anemia: Qualified Code: D50.9 - Iron deficiency anemia, unspecified iron deficiency anemia type (2) HTN (hypertension): Qualified Code: I10 - Essential hypertension (3) UTI (urinary tract infection): Qualified Code: N39.0 - Urinary tract infection without hematuria, site unspecified Kaci Johns Feb 28, 2017 13:06 Brooklynn Miner MD Feb 28, 2017 15:29
[2017-02-28] MEDS: DILTIAZEM HCL 30 MG TAB PO SCH ×2 (13:13→17:48)
[2017-03-01] VITALS (10 sets, daily range): BP systolic 139–158; BP diastolic 62–82; PULSE 86–122; RESP 16–20; TEMP 97.8–99.3; O2SAT 96–100
[2017-03-01] MEDS: PIPERACIL-TAZO 3.375 GM PREMIX 50 ML IV SCH ×4 (04:54→23:20)
[2017-03-01] MEDS: DILTIAZEM HCL 30 MG TAB PO SCH ×5 (06:12→23:56)
[2017-03-01] MEDS: DEXT 5%-NACL 0.45% 1000 ML INJ 1,000 ML IV SCH (06:12)
[2017-03-01] MEDS: VANCOMYCIN INJ 1,250 MG in SODIUM CHLOR 0.9% 250 ML INJ 250 ML IV SCH ×2 (06:12→17:36)
[2017-03-01] MEDS: INSULIN ASPART SUPPLEMENTAL SCALE SQ SCH ×4 (07:00→21:00)
[2017-03-01] MEDS: DOCUSATE SODIUM 50 MG/SENNA 8.6 MG TAB PO SCH ×2 (09:00→21:00)
[2017-03-01] MEDS: SODIUM CHLORIDE 0.9% FLUSH 10 ML FLUSH IV FLUSH SCH ×2 (09:00→23:20)
[2017-03-01] MEDS: METOPROLOL TARTRATE 100 MG TAB G-TUBE SCH ×2 (09:46→23:20)
[2017-03-01 10:38] LABS: HEMATOCRIT 30.7 % (35.0-46.0); MEAN CELL VOLUME 74.7 FL (80.0-100.0); MEAN CORPUSCULAR HEMOGLOBIN 22.7 PG (27.0-34.0); MEAN CORPUSCULAR HGB CONC 30.4 % (32.0-36.0); PLATELET COUNT 625 TH/MM3 (150-450); RED BLOOD COUNT 4.11 MIL/MM3 (4.00-5.30); RED CELL DISTRIBUTION WIDTH 17.9 % (11.6-17.2); REVIEW FLAG FINAL
--- NOTE | 2017-03-01 13:49 | HHI.PR ---
Subjective Subjective Remarks Eyes open, more alert today in room Nods head to yes or no No facial grimace Heart rate controlled (Kaci Johns) Review of Systems Constitutional Constitutional: Fatigue, Weakness Constitutional Remarks 10 point ROS done positives noted (Kaci Johns) Musculoskeletal MS: Weakness, Stiffness MS Remarks Left AKA dressing clean dry and intact (Kaci Johns) Neurologic Neurologic: Lethargic (resolved) (Kaci Johns) Psychiatric Psychiatric: Normal Mood Psychiatric Remarks Quiet nonverbal but nods her head (Kaci Johns) Vitals/Results Intake & Output 02/28/17 02/28/17 03/01/17 15:00 23:00 07:00 Intake Total 0 ml 1196 ml 998 ml Output Total 875 ml 1100 ml 500 ml Balance -875 ml 96 ml 498 ml Intake Oral 0 ml 0 ml 0 ml IV Total 524 ml 489 ml Tube Feeding 522 ml 359 ml Tube Irrigant 50 ml 50 ml Other 100 ml 100 ml Output Urine Total 875 ml 1100 ml 500 ml # Bowel Movements 2 0 2 Vital Signs Vital Signs Date Time Temp Pulse Resp B/P Pulse Ox O2 Delivery O2 Flow Rate FiO2 03/01/17 04:00 Room Air 03/01/17 04:00 98.0 86 20 141/62 100 03/01/17 00:00 Room Air 03/01/17 00:00 98.0 86 20 141/68 98 02/28/17 20:00 99.4 97 20 130/70 96 02/28/17 20:00 Room Air 02/28/17 20:00 95 02/28/17 18:12 28 02/28/17 16:00 99.9 100 20 146/69 99 02/28/17 16:00 26 (Kaci Johns) CBC/BMP: 03/01/17 0942 02/26/17 0703 Lab Results Laboratory Tests Test 03/01/17 09:42 White Blood Count 13.0 TH/MM3 Red Blood Count 4.11 MIL/MM3 Hemoglobin 9.3 GM/DL Hematocrit 30.7 % Mean Corpuscular Volume 74.7 FL Mean Corpuscular Hemoglobin 22.7 PG Mean Corpuscular Hemoglobin 30.4 % Concent Red Cell Distribution Width 17.9 % Platelet Count 625 TH/MM3 Mean Platelet Volume 8.2 FL Imaging Remarks Last Impressions Chest CT 02/26/17 0000 Signed Impressions: Service Date/Time: January 16:24 - CONCLUSION: 4.2 cm right lower lobe pulmonary mass characteristic of bronchogenic malignancy. No evidence of gross hilar or mediastinal lymphadenopathy. COPD with emphysematous changes. Adrian Seay MD Abdomen X-Ray 02/25/17 0000 Signed Impressions: Service Date/Time: Saturday, February 25, 2017 19:14 - CONCLUSION: 1. Unremarkable bowel gas pattern. 2. Vascular calcifications. 3. Gastrostomy tube in place. 4. Small linear calcifications projected over the right kidney. Jacky Lobo MD Tibia/Fibula X-Ray 02/24/17 1446 Signed Impressions: Service Date/Time: Friday, February 24, 2017 15:34 - CONCLUSION: Abnormalities at the ankle involving the foot. The proximal left tibia and fibula are intact Emil Kirby MD Foot X-Ray 02/24/17 1446 Signed Impressions: Service Date/Time: Friday, February 24, 2017 15:31 - CONCLUSION: Findings worrisome for multifocal osteomyelitis involving ankle and foot. Emil Kirby MD Chest X-Ray 02/24/17 1434 Signed Impressions: Service Date/Time: Friday, February 24, 2017 15:29 - CONCLUSION: 1. Mass-like density within the right lower lung field which is indeterminate. CT of the chest may be helpful for further evaluation of this finding. 2. Mild cardiomegaly. Yoan Roa MD Current Medications Administered Medications Medications (Trade) Dose Ordered Sig/Eufemia Route PRN Reason Start Time Stop Time Status Last Admin Dose Admin Sodium Chloride (NS Flush) 2 ml BID IV FLUSH 02/24/17 21:00 03/01/17 09:00 Acetaminophen (Tylenol) 650 mg Q4H PRN PO TEMP > 100.4 02/24/17 18:15 02/24/17 22:45 Senna/Docusate Sodium 1 tab 1 tab BID PO 02/24/17 21:00 02/27/17 20:46 Dextrose/Sodium Chloride 1,000 ml @ 75 mls/hr [id number] IV 02/24/17 20:00 02/28/17 17:48 Piperacillin Sod/ Tazobactam Sod (Zosyn 3.375 Gm Premix) 50 ml @ 100 mls/hr Q6H IV 02/24/17 22:00 03/01/17 10:00 Metoprolol Tartrate 100 mg 100 mg Q12HR G-TUBE 02/25/17 21:00 03/01/17 09:46 Vancomycin HCl/ Sodium Chloride (Vancomycin Inj/ NS 250 ml Inj) 262.5 ml @ 250 mls/hr Q12H IV 02/26/17 18:00 03/01/17 06:12 Diltiazem HCl (Cardizem) 60 mg Q6HR PO 02/28/17 13:00 03/01/17 11:38 (Kaci Johns) Physical Exam General General Appearance: Well Developed, Comfortable, Malnourished Appearance Remarks Thin (Kaci Johns) Eyes Eye Exam: Pupils Equal, Pupils Reactive (Kaci Johns) Ears & Nose Ears & Nose Exam: Nasal Mucosa [place] (Kaci Johns) Neck Neck Exam: Neck Supple, Trachea Midline (Kaci Johns) Pulmonary Resp Exam: Decreased Bases, Diminished Breath Sounds, Poor Inspiratory Effort ( Kaci Johns) Cardiology CV Exam: Regular (Kaci Johns) Gastrointestinal/Abdomen GI Exam: Soft, Non-Tender, Bowel Sounds Present, Non-Distended (Kaci Johns) Musculoskeletal MS Exam: Atrophy, Rigidity (hands) (Kaci Johns) Integumentary Skin Exam: Dry, Lesion(s) (Kaci Johns) Extremeties Extremities Exam: No Edema (Kaci Johns) Neurologic Neuro Exam: Awake Neuro Remarks Non-talkative this morning but nodded head (Kaci Johns) Assessment/Plan Problem List: (1) Critical lower limb ischemia (2) Anemia (3) HTN (hypertension) (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 Labs reviewed, Patient is receiving wound care for coccyx wound Continue antibiotic therapy, Barnard catheter DC'd IV fluids DC'd, patient is tolerating tube feeds without any nausea vomiting via PEG Left leg ischemia, gangrene. Infection -Appreciate vascular surgery input, -S/P L AKA 02/25 -post op care, pain management. -stable Chest x-ray findings of right lung masslike density, 4.[address] will need possible evaluation in the future Anemia, monitor No acute changes for now Stage IV coccyx wound, was seen by wound care nurse -continue with wound care per recommendations. Type 2 diabetes Accu-Cheks before meals and at bedtime with insulin therapy as needed History of prior CVAs as well as intracranial bleed, patient is aphasic with left-sided hemiplegia. Has PEG tube. Feedings started Glucerna 1.5, 55 cc an hour, tolerating well SCDs for DVT prophylaxis CM consult for SNF placement, . Discussed with case management , Albina. 3008 on chart Nazario is in room, states patient has been at [facility] for the last 3 years. Okay with transfer back. (Kaci Johns) Assessment/Plan Patient seen and examined as above [id number] time spent with patient Labs reviewed CT scan Rx report reviewed Medications reviewed Discussed with RN Explained to patient Plan for pulmonary consult Plan for discharge to [facility] in 1-2 days if no further workup needed in-house or it can be done done as outpatient (Brooklynn Miner MD) Problem Qualifiers (1) Anemia: Qualified Code: D50.9 - Iron deficiency anemia, unspecified iron deficiency anemia type (2) HTN (hypertension): Qualified Code: I10 - Essential hypertension (3) UTI (urinary tract infection): Qualified Code: N39.0 - Urinary tract infection without hematuria, site unspecified Kaci Johns Mar 01, 2017 13:49 Brooklynn Miner MD Mar 01, 2017 16:02
[2017-03-01] MEDS: MORPHINE SULFATE 4 MG/ML INJ IV PRN (23:30)
[2017-03-02] MEDS: PIPERACIL-TAZO 3.375 GM PREMIX 50 ML IV SCH ×4 (04:21→22:22)
[2017-03-02] MEDS: VANCOMYCIN INJ 1,250 MG in SODIUM CHLOR 0.9% 250 ML INJ 250 ML IV SCH ×2 (05:35→17:25)
[2017-03-02] MEDS: DILTIAZEM HCL 30 MG TAB PO SCH ×3 (05:35→17:25)
[2017-03-02] MEDS: INSULIN ASPART SUPPLEMENTAL SCALE SQ SCH ×4 (05:36→21:00)
[2017-03-02 05:50] VITALS: BP 141/68; PULSE 102; RESP 16; TEMP 97.9; O2SAT 98
--- NOTE | 2017-03-02 05:54 | MB ---
cc: KAYE WILSON DATE OF CONSULTATION 03/01/[address] Miner REASON FOR CONSULTATION Evaluation for lung mass. HISTORY OF PRESENT ILLNESS Ms. Marrufo is a 66-year-old -Chinese female with a history of CVA with left-sided weakness and diabetes mellitus. She was admitted with infection in the left foot. She was seen by Dr. Gambino and sent over here. She was seen by Dr. Yoan Mccray and she underwent left above-knee amputation on 02/25/2017. She had a CT scan of the chest done which shows she has a 4.2 x 2.9-cm mass in the superior segment of the right lower lobe. She has emphysematous changes in the lung. The patient talks only a few words, not able to understand. Her family is not available at this time. PAST MEDICAL HISTORY 1. History of hypertension. 2. Diabetes mellitus. 3. History of CVA. 4. Aphasia. 5. Status post left above-knee amputation. 6. Hyperlipidemia. 7. History of gastroesophageal reflux disease. 8. Pressure ulcers. MEDICATIONS She is currently taking - 1. Diltiazem 60 mg q. 6 hours. 1. Vancomycin IV. 2. Clonidine 0.1 mg p.r.n. 3. Metoprolol 100 mg twice a day. 4. Morphine p.r.n. 5. Zosyn IV. ALLERGIES No known drug allergies. SOCIAL HISTORY She is , has history of smoking in the past. FAMILY HISTORY Not available. REVIEW OF SYSTEMS The patient has mild pain. He denies any headache. No nausea or vomiting. Denies any DVT or pulmonary embolism. She is a poor historian. PHYSICAL EXAMINATION GENERAL: An elderly female, not in any acute distress. VITAL SIGNS: Blood pressure 141/62, heart rate 86, respirations 20, temperature 98. HEENT EXAMINATION: Pupils are equal and reactive to light. Oral mucosa and nasal mucosa normal. NECK: Supple. JVP not raised. CHEST: Equal bilaterally. No rhonchi. CV: S1 and S2 normal. ABDOMEN: Soft, nondistended. Bowel sounds are present. EXTREMITIES: Status post left AKA. IMPRESSION 1. Right lower lobe 4.5 x 2.9-cm mass concerning for malignancy. 2. Diabetes mellitus. 3. History of CAD. 4. Left-sided weakness. 5. Status post left AKA. PLAN The patient has multiple comorbid conditions. She was in the hospice service before and she was rescinded and came for the surgery over here. Her mass is suspicious for malignancy concerning multiple comorbid conditions. I am not sure whether she would be a candidate for any therapy. However, I will discuss with her . I called her ; he is not available at this time and I will discuss with him. If she wants to proceed, we will have a CT-guided biopsy done. Further treatment will depend on her course in the hospital. Thank you Dr. Miner for this consultation. Kaye Wilson MD ADA/SSB /3:18 PM /5:43 AM
[2017-03-02 08:00] VITALS: BP 151/64; PULSE 96; RESP 18; TEMP 99.3; O2SAT 97
[2017-03-02 09:00] VITALS: PULSE 97
[2017-03-02] MEDS: DOCUSATE SODIUM 50 MG/SENNA 8.6 MG TAB PO SCH ×2 (09:00→20:45)
[2017-03-02] MEDS: SODIUM CHLORIDE 0.9% FLUSH 10 ML FLUSH IV FLUSH SCH ×2 (09:00→20:47)
--- NOTE | 2017-03-02 09:08 | PD.VS.PN ---
Subjective POD #: 5 Procedure(s): L AKA Subjective/Hospital Course Pt in bed Pain Controlled Dressing to L AKA intact c/d (Mallika Rizvi) Objective Vitals/I&O Date Time Temp Pulse Resp B/P Pulse Ox O2 Delivery O2 Flow Rate FiO2 03/02/17 05:50 Room Air 03/02/17 05:50 97.9 102 16 141/68 98 03/01/17 23:30 97.9 122 16 155/82 96 03/01/17 23:30 Room Air 03/01/17 21:38 Room Air 03/01/17 21:38 99.3 112 16 158/79 99 03/01/17 20:19 107 03/01/17 18:21 97.8 99 18 139/62 96 03/01/17 16:06 97.8 103 18 149/73 98 03/01/17 15:00 97.8 99 18 139/62 96 03/01/17 12:06 97.8 99 18 139/62 96 03/01/17 09:00 101 03/02/17 03/02/17 03/02/17 07:00 15:00 23:00 Intake Total 902 ml Output Total 550 ml Balance 352 ml Exam: GENERAL: Pt alert and responsive SKIN: Warm and dry/ L aka intact with staple closure/ incision site clean and dry with a scant amount of serosanguineous drainage/ NO R/S/O present MUSCULOSKELETAL: No cyanosis, or edema present Bilat LE warm Incisions: Clean and Dry/ Intact/ w/ staple closure Laboratory Laboratory Tests Test 03/01/17 09:42 White Blood Count 13.0 Red Blood Count 4.11 Hemoglobin 9.3 Hematocrit 30.7 Mean Corpuscular Volume 74.7 Mean Corpuscular Hemoglobin 22.7 Mean Corpuscular Hemoglobin 30.4 Concent Red Cell Distribution Width 17.9 Platelet Count 625 Mean Platelet Volume 8.2 (Mallika Rizvi) Assessment and Plan Assessment: (1) Critical lower limb ischemia Status: Acute Plan Plan Dressing changed at the BS Incision intact Continue PT Will arrange to have pt f/u in our out patient clinic Mallika JOSE [facility] [phone] Discharge Planning Pt ok for D/C from a vascular standpoint Arranged for post op f/u in our OPC (Mallika Rizvi) Plan I agree with above plan. Sy Kam DO, FACS. (Sy Kam DO) Mallika Rizvi Mar 02, 2017 09:08 Sy Kam DO Mar 03, 2017 10:27
[2017-03-02] MEDS: METOPROLOL TARTRATE 100 MG TAB G-TUBE SCH ×2 (09:27→20:45)
[2017-03-02] MEDS: MORPHINE SULFATE 4 MG/ML INJ IV PRN (11:17)
[2017-03-02 12:00] VITALS: BP 152/72; PULSE 105; RESP 18; TEMP 98.5; O2SAT 98
--- NOTE | 2017-03-02 14:45 | HHI.PR ---
Subjective Interval History Sleeping, arousable, looks examiner in the eye, does not speak, does not look in any distress, has been responsive according to the nurse, family would like to find her another fdc Review of Systems Constitutional Constitutional: Fatigue, Weakness Constitutional Remarks Not obtainable Musculoskeletal MS: Weakness, Stiffness Neurologic Neurologic: Lethargic (resolved) Psychiatric Psychiatric: Normal Mood Vitals/Results Intake & Output 03/01/17 03/01/17 03/02/17 15:00 23:00 07:00 Intake Total 0 ml 1956 ml 902 ml Output Total 900 ml 350 ml 550 ml Balance -900 ml 1606 ml 352 ml Intake Oral 0 ml 0 ml 0 ml IV Total 779 ml 350 ml Tube Feeding 1027 ml 402 ml Tube Irrigant 50 ml 50 ml Other 100 ml 100 ml Output Urine Total 900 ml 350 ml 550 ml # Bowel Movements 0 0 0 Vital Signs Vital Signs Date Time Temp Pulse Resp B/P Pulse Ox O2 Delivery O2 Flow Rate FiO2 03/02/17 12:00 98.5 105 18 152/72 98 03/02/17 09:00 97 03/02/17 08:00 99.3 96 18 151/64 97 03/02/17 07:00 Room Air 03/02/17 05:50 Room Air 03/02/17 05:50 97.9 102 16 141/68 98 03/01/17 23:30 97.9 122 16 155/82 96 03/01/17 23:30 Room Air 03/01/17 21:38 Room Air 03/01/17 21:38 99.3 112 16 158/79 99 03/01/17 20:19 107 03/01/17 18:21 97.8 99 18 139/62 96 03/01/17 16:06 97.8 103 18 149/73 98 03/01/17 15:00 97.8 99 18 139/62 96 CBC/BMP: 03/01/17 0942 02/26/17 0703 Physical Exam General General Appearance: Well Developed, Comfortable, Malnourished Eyes Eye Exam: Pupils Equal, Pupils Reactive Ears & Nose Ears & Nose Exam: Nasal Mucosa [place] Neck Neck Exam: Neck Supple, Trachea Midline Pulmonary Resp Exam: Decreased Bases, Diminished Breath Sounds, Poor Inspiratory Effort Cardiology CV Exam: Regular Gastrointestinal/Abdomen GI Exam: Soft, Non-Tender, Bowel Sounds Present, Non-Distended Musculoskeletal MS Exam: Atrophy, Rigidity (hands) MS Remarks Left above-knee amputation Integumentary Skin Exam: Dry Extremeties Extremities Exam: No Edema Neurologic Neuro Exam: Awake Assessment/Plan Problem List: (1) Critical lower limb ischemia (2) Anemia (3) HTN (hypertension) (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, managed as type 2 (6) Subacute osteomyelitis, left ankle and foot (7) History of CVA with residual deficit (8) Mass of right lung (9) UTI (urinary tract infection) (10) Decubitus ulcer of sacral region, stage 4 Assessment/Plan Assessment Left lower stomach he osteomyelitis Status post left above-knee amputation on 02/25/17 Right lower lobe mass, concerning of malignancy She is normally on hospice Dementia, diabetes Hypertension detention resident Management Continue antibiotics Pain control We will follow family preferences in regards to her lung mass If active management is desired she could have a lung biopsy Otherwise she could go back to her hospice care Case management to arrange for discharge to another fdc Discussed with nurse Stevie Dewitt MD Mar 02, 2017 14:44
[2017-03-02 16:00] VITALS: BP 161/68; PULSE 104; RESP 18; TEMP 98.5; O2SAT 98
--- NOTE | 2017-03-02 20:22 | HHI.PR ---
Subjective Remarks 66 YOAA female with DM,AKA, Lung mass Could't reach to discuss pt does't have his contact number no SOB Objective Vital Signs Vital Signs Date Time Temp Pulse Resp B/P Pulse Ox O2 Delivery O2 Flow Rate FiO2 03/02/17 16:00 98.5 104 18 161/68 98 03/02/17 12:00 98.5 105 18 152/72 98 03/02/17 09:00 97 03/02/17 08:00 99.3 96 18 151/64 97 03/02/17 07:00 Room Air 03/02/17 05:50 Room Air 03/02/17 05:50 97.9 102 16 141/68 98 03/01/17 23:30 97.9 122 16 155/82 96 03/01/17 23:30 Room Air 03/01/17 21:38 Room Air 03/01/17 21:38 99.3 112 16 158/79 99 03/01/17 20:19 107 I/O 03/01/17 03/01/17 03/01/17 03/02/17 03/02/17 03/02/17 07:00 15:00 23:00 07:00 15:00 23:00 Intake Total 998 ml 0 ml 1956 ml 902 ml 0 ml Output Total 500 ml 900 ml 350 ml 550 ml 650 ml Balance 498 ml -900 ml 1606 ml 352 ml -650 ml Intake Oral 0 ml 0 ml 0 ml 0 ml 0 ml IV Total 489 ml 779 ml 350 ml Tube Feeding 359 ml 1027 ml 402 ml Tube Irrigant 50 ml 50 ml 50 ml Other 100 ml 100 ml 100 ml Output Urine Total 500 ml 900 ml 350 ml 550 ml 650 ml # Bowel Movements 2 0 0 0 1 Result Diagram: 03/01/17 0942 02/26/17 0703 Objective Remarks GENERAL: Elderly AA female NAD SKIN: Warm and dry. HEAD: Normocephalic. EYES: No scleral icterus. No injection or drainage. NECK: Supple, trachea midline. No JVD or lymphadenopathy. CARDIOVASCULAR: Regular rate and rhythm without murmurs, gallops, or rubs. RESPIRATORY: Breath sounds equal bilaterally. No accessory muscle use. GASTROINTESTINAL: Abdomen soft, non-tender, nondistended. MUSCULOSKELETAL: No cyanosis, or edema. left AKA BACK: Nontender without obvious deformity. No CVA tenderness. A/P Assessment and Plan RLL Lung mass DM CVA S/P Left AKA PLAN: Due to multiple comorbid condition, she will not a candidate for therapy or surgery Will dw to make decision Xiang De Jesus MD Mar 02, 2017 20:22
[2017-03-02] MEDS: HEPARIN SODIUM - SQ 10,000 UNITS/ML VIAL SQ SCH (20:46)
[2017-03-02 21:10] VITALS: BP 166/82; PULSE 94; RESP 16; TEMP 97.8; O2SAT 98
[2017-03-03] VITALS (9 sets, daily range): BP systolic 141–179; BP diastolic 65–85; PULSE 88–110; RESP 16–20; TEMP 98–98.8; O2SAT 95–99
[2017-03-03] MEDS: DILTIAZEM HCL 60 MG TAB PO SCH ×5 (01:28→23:56)
[2017-03-03] MEDS: PIPERACIL-TAZO 3.375 GM PREMIX 50 ML IV SCH ×4 (04:00→22:22)
[2017-03-03] MEDS ORDERED: PHARMACY ORDERED LAB ONE (05:45)
[2017-03-03] MEDS: VANCOMYCIN INJ 1,250 MG in SODIUM CHLOR 0.9% 250 ML INJ 250 ML IV SCH (05:54)
[2017-03-03] MEDS: INSULIN ASPART SUPPLEMENTAL SCALE SQ SCH ×4 (05:57→20:49)
[2017-03-03 06:49] LABS: VANCOMYCIN TROUGH 31.4 MCG/ML (5.0-10.0)
[2017-03-03] MEDS: DOCUSATE SODIUM 50 MG/SENNA 8.6 MG TAB PO SCH ×2 (08:50→20:47)
[2017-03-03] MEDS: METOPROLOL TARTRATE 100 MG TAB G-TUBE SCH ×2 (08:50→20:46)
[2017-03-03] MEDS: HEPARIN SODIUM - SQ 10,000 UNITS/ML VIAL SQ SCH ×2 (08:51→20:47)
[2017-03-03] MEDS: SODIUM CHLORIDE 0.9% FLUSH 10 ML FLUSH IV FLUSH SCH ×2 (09:37→20:47)
--- NOTE | 2017-03-03 13:55 | HHI.PR ---
Subjective Subjective Remarks awake, not talking today no acute changes overnight unable to obtain ROS no fever no family at bsd Review of Systems Constitutional Constitutional Remarks unable to obtain ROS Vitals/Results Intake & Output 03/02/17 03/02/17 03/03/17 15:00 23:00 07:00 Intake Total 0 ml 0 ml 0 ml Output Total 650 ml 650 ml 525 ml Balance -650 ml -650 ml -525 ml Intake Oral 0 ml 0 ml 0 ml Output Urine Total 650 ml 650 ml 525 ml # Bowel Movements 1 0 0 Vital Signs Vital Signs Date Time Temp Pulse Resp B/P Pulse Ox O2 Delivery O2 Flow Rate FiO2 03/03/17 11:14 98.7 88 20 167/76 99 03/03/17 09:04 Room Air 03/03/17 08:08 98.8 107 20 167/74 99 03/03/17 07:43 110 03/03/17 04:07 98.8 100 16 148/67 97 03/03/17 00:41 109 03/03/17 00:32 98.0 102 16 179/85 98 03/02/17 23:31 Room Air 03/02/17 21:10 97.8 94 16 166/82 98 03/02/17 16:00 98.5 104 18 161/68 98 CBC/BMP: 03/01/17 0942 03/03/17 0545 Lab Results Laboratory Tests Test 03/03/17 05:45 Creatinine 0.72 MG/DL Estimat Glomerular Filtration 98 ML/MIN Rate Vancomycin Level Trough 31.4 MCG/ML Physical Exam General General Appearance: Well Developed, Comfortable, Malnourished Eyes Eye Exam: Pupils Equal, Pupils Reactive Ears & Nose Ears & Nose Exam: Nasal Mucosa [place] Neck Neck Exam: Neck Supple, Trachea Midline Pulmonary Resp Exam: Decreased Bases, Diminished Breath Sounds, Poor Inspiratory Effort Cardiology CV Exam: Regular Gastrointestinal/Abdomen GI Exam: Soft, Non-Tender, Bowel Sounds Present, Non-Distended Musculoskeletal MS Exam: Atrophy, Rigidity MS Remarks CONTRACTURES LUE Integumentary Skin Exam: Dry Extremeties Extremities Exam: No Edema Extremeties Remarks left aka, stump dressing D/I Neurologic Neuro Exam: Awake Neuro Remarks NON VERBAL MOVES RUE SPONTANEOUSLY NOT FOLLOWING COMMAND LEFT HEMIPLEGIA VTE Prophylaxis VTE Prophylaxis Meds: Heparin Assessment/Plan Problem List: (1) Critical lower limb ischemia (2) Anemia (3) HTN (hypertension) (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 Presented to the emergency room with worsening left ankle and foot wound, x-ray findings concerning for osteomyelitis. Found with gangrene and leg ischemia. Left leg ischemia, gangrene. -Appreciate vascular surgery input, recommends left AKA -S/P L AKA 02/25 -post op care, pain management. -stable -cleared for dc Left leg infection, x-ray findings of osteomyelitis. Leukocytosis, mild tachycardia. -Wound culture -prot mirabilis, group d enterococcus, ESBL + Continue with empiric antibiotics Chest x-ray findings of right lung masslike density. Unclear if this is a known finding. -discussed findings with daughter, pt. with prior hx of tobacco abuse x 26 years. She will discuss with stepfather and wants CT of chest to find out. She understands that if this is malignant, pt. most will not likely tolerate any treatment due to comorbidities and debilitated status. -CT chest with findings of 4.2 cm RLL mass -pulm. following, attempted to call yesterday to discuss poss bx, no answer. I tried calling today, no answer, unable to leave message Anemia, normocytic hypochromic. -HH 7.3/24.5, s/p 1 unit PRBC, HH stable -follow Stage IV coccyx wound, was seen by wound care nurse -continue with wound care per recommendations. Type 2 diabetes Accu-Cheks before meals and at bedtime with insulin therapy as needed History of prior CVAs as well as intracranial bleed, patient is aphasic with left-sided hemiplegia. Has PEG tube. Continue to monitor patient Hypertension, stable continue BB and CCB, Cardizem increased to 60 mg PO QID SCDs/Heparin for DVT prophylaxis CM consult for SNF placement, family requesting a different facility. Has been declined by [facility] consult, services to resume upon dc continue tube feeding hopefully dc tomorrow if family doesn't want bx D/W RN D/W attempted to call , unable to leave message. This patient was seen by myself and Dr. Dewitt, this note is written on his behalf Problem Qualifiers (1) HTN (hypertension): Qualified Code: I10 - Essential hypertension (2) UTI (urinary tract infection): Qualified Code: N39.0 - Urinary tract infection without hematuria, site unspecified Rivka Chan [facility] Mar 03, 2017 13:55
--- NOTE | 2017-03-03 15:50 | HHI.PR ---
Subjective Remarks 66 YOAA female with DM,AKA, Lung mass Could't reach to discuss pt does't have his contact number no SOB daughter wilmar at BS Objective Vital Signs Vital Signs Date Time Temp Pulse Resp B/P Pulse Ox O2 Delivery O2 Flow Rate FiO2 03/03/17 12:07 98.4 89 20 166/74 97 03/03/17 11:14 98.7 88 20 167/76 99 03/03/17 09:04 Room Air 03/03/17 08:08 98.8 107 20 167/74 99 03/03/17 07:43 110 03/03/17 04:07 98.8 100 16 148/67 97 03/03/17 00:41 109 03/03/17 00:32 98.0 102 16 179/85 98 03/02/17 23:31 Room Air 03/02/17 21:10 97.8 94 16 166/82 98 03/02/17 16:00 98.5 104 18 161/68 98 I/O 03/02/17 03/02/17 03/02/17 03/03/17 03/03/17 03/03/17 07:00 15:00 23:00 07:00 15:00 23:00 Intake Total 902 ml 0 ml 0 ml 0 ml 1610 ml Output Total 550 ml 650 ml 650 ml 525 ml Balance 352 ml -650 ml -650 ml -525 ml 1610 ml Intake Oral 0 ml 0 ml 0 ml 0 ml IV Total 350 ml Tube Feeding 402 ml 1450 ml Tube Irrigant 50 ml 60 ml Other 100 ml 100 ml Output Urine Total 550 ml 650 ml 650 ml 525 ml # Bowel Movements 0 1 0 0 Result Diagram: 03/01/17 0942 03/03/17 0545 Objective Remarks GENERAL: Elderly AA female NAD SKIN: Warm and dry. HEAD: Normocephalic. EYES: No scleral icterus. No injection or drainage. NECK: Supple, trachea midline. No JVD or lymphadenopathy. CARDIOVASCULAR: Regular rate and rhythm without murmurs, gallops, or rubs. RESPIRATORY: Breath sounds equal bilaterally. No accessory muscle use. GASTROINTESTINAL: Abdomen soft, non-tender, nondistended. MUSCULOSKELETAL: No cyanosis, or edema. left AKA BACK: Nontender without obvious deformity. No CVA tenderness. A/P Assessment and Plan RLL Lung mass DM CVA S/P Left AKA PLAN: Due to multiple comorbid condition, she will not a candidate for therapy or surgery Will dw to make decision DW Daughter harriett at BS, she does't want any bx, however she will dw her Step father to make final decision Xiang De Jesus MD Mar 03, 2017 15:50
[2017-03-04] VITALS (9 sets, daily range): BP systolic 126–163; BP diastolic 65–80; PULSE 85–104; RESP 17–28; TEMP 97–99; O2SAT 96–100
[2017-03-04] MEDS: PIPERACIL-TAZO 3.375 GM PREMIX 50 ML IV SCH ×4 (04:08→21:48)
[2017-03-04] MEDS: INSULIN ASPART SUPPLEMENTAL SCALE SQ SCH ×4 (06:10→21:00)
[2017-03-04] MEDS: DILTIAZEM HCL 60 MG TAB PO SCH ×3 (06:10→17:32)
[2017-03-04] MEDS: DOCUSATE SODIUM 50 MG/SENNA 8.6 MG TAB PO SCH ×2 (09:00→21:47)
[2017-03-04] MEDS: SODIUM CHLORIDE 0.9% FLUSH 10 ML FLUSH IV FLUSH SCH ×2 (09:55→21:48)
[2017-03-04] MEDS: METOPROLOL TARTRATE 100 MG TAB G-TUBE SCH ×2 (09:55→21:47)
[2017-03-04] MEDS: HEPARIN SODIUM - SQ 10,000 UNITS/ML VIAL SQ SCH ×2 (09:56→21:47)
[2017-03-04] MEDS: VANCOMYCIN 1,000 MG/NS 250 ML IV SCH ×2 (12:19)
[2017-03-04] MEDS ORDERED: NORC5TAB PO (18:28)
--- NOTE | 2017-03-04 18:39 | HHI.PR ---
Subjective Remarks 66 YOAA female with DM,AKA, Lung mass Could't reach to discuss pt does't have his contact number no SOB daughter Brea at [facility] no New complaint Objective Vital Signs Vital Signs Date Time Temp Pulse Resp B/P Pulse Ox O2 Delivery O2 Flow Rate FiO2 03/04/17 16:00 99.0 101 20 129/65 97 03/04/17 12:16 97.8 90 20 156/79 98 03/04/17 08:30 Room Air 03/04/17 08:00 98.7 98 20 161/72 99 03/04/17 07:58 97 03/04/17 04:00 97.0 91 17 140/66 96 03/04/17 04:00 Room Air 03/04/17 00:00 Room Air 03/04/17 00:00 98.5 91 17 149/69 100 03/03/17 20:00 104 03/03/17 20:00 98.4 101 17 141/65 95 03/03/17 20:00 Room Air I/O 03/03/17 03/03/17 03/03/17 03/04/17 03/04/17 03/04/17 07:00 15:00 23:00 07:00 15:00 23:00 Intake Total 0 ml 1610 ml 852 ml 0 ml 653 ml Output Total 525 ml 1000 ml Balance -525 ml 610 ml 852 ml 0 ml 653 ml Intake Oral 0 ml 0 ml 0 ml Tube Feeding 1450 ml 852 ml 473 ml Tube Irrigant 60 ml 60 ml Other 100 ml 120 ml Output Urine Total 525 ml 1000 ml # Voids 2 2 # Bowel Movements 0 2 1 2 2 Result Diagram: 03/01/17 0942 03/04/17 0620 Objective Remarks GENERAL: Elderly AA female NAD SKIN: Warm and dry. HEAD: Normocephalic. EYES: No scleral icterus. No injection or drainage. NECK: Supple, trachea midline. No JVD or lymphadenopathy. CARDIOVASCULAR: Regular rate and rhythm without murmurs, gallops, or rubs. RESPIRATORY: Breath sounds equal bilaterally. No accessory muscle use. GASTROINTESTINAL: Abdomen soft, non-tender, nondistended. MUSCULOSKELETAL: No cyanosis, or edema. left AKA BACK: Nontender without obvious deformity. No CVA tenderness. A/P Assessment and Plan RLL Lung mass DM CVA S/P Left AKA PLAN: Due to multiple comorbid condition, she will not a candidate for therapy or surgery Will dw to make decision DW Daughter harriett at [facility], she does't want any bx, however she will dw her Step father to make final decision Stable from pulm standpoint Awaiting family decision for Bx Xiang De Jesus MD Mar 04, 2017 18:39
--- NOTE | 2017-03-04 19:51 | HHI.PR ---
Subjective Interval History Sleeping, arousable, does not converse Review of Systems Constitutional Constitutional Remarks Not obtainable Vitals/Results Intake & Output 03/03/17 03/03/17 03/04/17 15:00 23:00 07:00 Intake Total 1610 ml 852 ml Output Total 1000 ml Balance 610 ml 852 ml Intake Oral 0 ml Tube Feeding 1450 ml 852 ml Tube Irrigant 60 ml Other 100 ml Output Urine Total 1000 ml # Voids 2 # Bowel Movements 2 1 2 Vital Signs Vital Signs Date Time Temp Pulse Resp B/P Pulse Ox O2 Delivery O2 Flow Rate FiO2 03/04/17 16:00 99.0 101 20 129/65 97 03/04/17 12:16 97.8 90 20 156/79 98 03/04/17 08:30 Room Air 03/04/17 08:00 98.7 98 20 161/72 99 03/04/17 07:58 97 03/04/17 04:00 97.0 91 17 140/66 96 03/04/17 04:00 Room Air 03/04/17 00:00 Room Air 03/04/17 00:00 98.5 91 17 149/69 100 03/03/17 20:00 104 03/03/17 20:00 98.4 101 17 141/65 95 03/03/17 20:00 Room Air CBC/BMP: 03/01/17 0942 03/04/17 0620 Lab Results Laboratory Tests Test 03/04/17 06:20 Creatinine 0.70 MG/DL Estimat Glomerular Filtration 101 ML/MIN Rate Random Vancomycin Level 18.6 COMMENT Physical Exam General General Appearance: Well Developed, Comfortable, Malnourished Eyes Eye Exam: Pupils Equal, Pupils Reactive Ears & Nose Ears & Nose Exam: Nasal Mucosa [place] Neck Neck Exam: Neck Supple, Trachea Midline Pulmonary Resp Exam: Decreased Bases, Diminished Breath Sounds, Poor Inspiratory Effort Cardiology CV Exam: Regular Gastrointestinal/Abdomen GI Exam: Soft, Non-Tender, Bowel Sounds Present, Non-Distended Musculoskeletal MS Exam: Atrophy, Rigidity MS Remarks Left above-knee amputation Integumentary Skin Exam: Dry Extremeties Extremities Exam: No Edema Neurologic Neuro Exam: Awake VTE Prophylaxis VTE Prophylaxis Meds: Heparin Assessment/Plan Problem List: (1) Critical lower limb ischemia (2) Anemia (3) HTN (hypertension) (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, managed as type 2 (6) Subacute osteomyelitis, left ankle and foot (7) History of CVA with residual deficit (8) Mass of right lung (9) UTI (urinary tract infection) (10) Decubitus ulcer of sacral region, stage 4 Assessment/Plan Assessment Left lower extremity osteomyelitis Status post left above-knee amputation on 02/25/17 Right lower lobe mass, concerning of malignancy She is normally on hospice Dementia, diabetes Hypertension [facility] resident Management Pain control We will follow family preferences in regards to her lung mass If active management is desired she could have a lung biopsy Otherwise she could go back to her hospice care Case management to arrange for discharge to another fci Discussed with nurse Problem Qualifiers (1) HTN (hypertension): Qualified Code: I10 - Essential hypertension (2) UTI (urinary tract infection): Qualified Code: N39.0 - Urinary tract infection without hematuria, site unspecified Stevie Dewitt MD Mar 04, 2017 19:50
[2017-03-05] MEDS: DILTIAZEM HCL 60 MG TAB PO SCH ×2 (00:56→05:16)
[2017-03-05 03:50] VITALS: BP 159/76; PULSE 95; RESP 32; TEMP 97.7; O2SAT 100
[2017-03-05] MEDS: PIPERACIL-TAZO 3.375 GM PREMIX 50 ML IV SCH ×2 (04:03→09:25)
[2017-03-05] MEDS: VANCOMYCIN 1,000 MG/NS 250 ML IV SCH ×2 (05:17)
[2017-03-05] MEDS: INSULIN ASPART SUPPLEMENTAL SCALE SQ SCH (06:09)
[2017-03-05 08:00] VITALS: BP 167/77; PULSE 96; RESP 18; TEMP 98.6; O2SAT 97
[2017-03-05] MEDS: DOCUSATE SODIUM 50 MG/SENNA 8.6 MG TAB PO SCH (09:23)
[2017-03-05] MEDS: METOPROLOL TARTRATE 100 MG TAB G-TUBE SCH (09:24)
[2017-03-05] MEDS: HEPARIN SODIUM - SQ 10,000 UNITS/ML VIAL SQ SCH (09:24)
[2017-03-05] MEDS: SODIUM CHLORIDE 0.9% FLUSH 10 ML FLUSH IV FLUSH SCH (09:25)
--- NOTE | 2017-03-05 11:11 | HHI.PR ---
Subjective Interval History Alert, oriented only to her first name, answers some questions with yes and no , denies complaints Review of Systems Constitutional Constitutional Remarks As above, 10 systems reviewed and otherwise negative but not reliable Vitals/Results Intake & Output 03/04/17 03/04/17 03/05/17 15:00 23:00 07:00 Intake Total 0 ml 653 ml 0 ml Balance 0 ml 653 ml 0 ml Intake Oral 0 ml 0 ml 0 ml Tube Feeding 473 ml Tube Irrigant 60 ml Other 120 ml # Voids 2 2 6 # Bowel Movements 2 0 1 Vital Signs Vital Signs Date Time Temp Pulse Resp B/P Pulse Ox O2 Delivery O2 Flow Rate FiO2 03/05/17 08:30 Room Air 03/05/17 08:00 98.6 96 18 167/77 97 03/05/17 03:50 97.7 95 32 159/76 100 03/04/17 23:18 98.5 85 26 126/68 98 03/04/17 20:42 98.2 104 28 163/80 96 03/04/17 20:30 Room Air 03/04/17 20:00 104 03/04/17 16:00 99.0 101 20 129/65 97 03/04/17 12:16 97.8 90 20 156/79 98 CBC/BMP: 03/01/17 0942 03/05/17 0605 Lab Results Laboratory Tests Test 03/05/17 06:05 Creatinine 0.71 MG/DL Estimat Glomerular Filtration 99 ML/MIN Rate Physical Exam General General Appearance: Well Developed, Comfortable, Malnourished Eyes Eye Exam: Pupils Equal, Pupils Reactive Ears & Nose Ears & Nose Exam: Nasal Mucosa [place] Neck Neck Exam: Neck Supple, Trachea Midline Pulmonary Resp Exam: Decreased Bases, Diminished Breath Sounds, Poor Inspiratory Effort Cardiology CV Exam: Regular Gastrointestinal/Abdomen GI Exam: Soft, Non-Tender, Bowel Sounds Present, Non-Distended Musculoskeletal MS Exam: Atrophy, Rigidity MS Remarks Left above-knee amputation Integumentary Skin Exam: Dry Extremeties Extremities Exam: No Edema Neurologic Neuro Exam: Awake VTE Prophylaxis VTE Prophylaxis Meds: Heparin Assessment/Plan Problem List: (1) Critical lower limb ischemia (2) Anemia (3) HTN (hypertension) (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, managed as type 2 (6) Subacute osteomyelitis, left ankle and foot (7) History of CVA with residual deficit (8) Mass of right lung (9) UTI (urinary tract infection) (10) Decubitus ulcer of sacral region, stage 4 Assessment/Plan Assessment Left lower extremity osteomyelitis Status post left above-knee amputation on 02/25/17 Right lower lobe mass, concerning of malignancy She is normally on hospice Dementia, diabetes Hypertension [facility] resident Management Pain control Discharged to nursing facility We will follow family preferences in regards to her lung mass If active management is desired she could have a lung biopsy Otherwise she could go back to her hospice care The decision could be made while the patient is at the custodial No indication to stay at the hospital at this time If biopsy is desired the patient could come back as a day case to interventional radiology Case management to arrange for discharge Discussed with nurse Discharge Minutes: 40 Problem Qualifiers (1) HTN (hypertension): Qualified Code: I10 - Essential hypertension (2) UTI (urinary tract infection): Qualified Code: N39.0 - Urinary tract infection without hematuria, site unspecified Stevie Dewitt MD Mar 05, 2017 11:11
[2017-03-05 11:35] VITALS: BP 161/74; PULSE 95; RESP 18; TEMP 98.7; O2SAT 100
[2017-03-06] MEDS ORDERED: PHARMACY ORDERED LAB ONE (17:45)
--- NOTE | 2017-03-07 18:43 | HHI.DS ---
Discharge Summary Admission Date Feb 24, 2017 at 17:17 Discharge Date: Mar 05, 2017 Admitting Diagnosis Left Foot and Ankle Osteomyelitis with Wet Gangrene (1) Wet gangrene Diagnosis: Principal (2) Subacute osteomyelitis, left ankle and foot Diagnosis: Secondary (3) Mass of right lung Diagnosis: Secondary (4) Critical lower limb ischemia Diagnosis: Principal (5) History of CVA with residual deficit Diagnosis: Secondary (6) Diabetes 1.5, managed as type 2 Diagnosis: Secondary (7) HTN (hypertension) Diagnosis: Secondary (8) Anemia Diagnosis: Secondary Brief History This was an unfortunate 66-year-old female with history of CVA with left-sided hemiparesis and aphasic, hypertension, type 2 diabetes. Patient had PEG tube and has previous tracheostomy which has now been removed. Patient was a resident from a local senior care. Per documentation from the ER, patient was sent for evaluation for possible left BKA due to worsening left ankle and foot wound.. Apparently the patient had been under hospice care and was now requesting aggressive treatment of the patient's left foot and ankle wound. She was seen by Dr. Gambino today and he immediately sent her to the hospital for further evaluation. Patient was nonverbal, unable to provide any history. No family at the bedside. CBC/BMP: 03/05/17 0605 Imaging Last Impressions Chest CT 02/26/17 0000 Signed Impressions: Service Date/Time: January 16:24 - CONCLUSION: 4.2 cm right lower lobe pulmonary mass characteristic of bronchogenic malignancy. No evidence of gross hilar or mediastinal lymphadenopathy. COPD with emphysematous changes. Adrian Seay MD Abdomen X-Ray 02/25/17 0000 Signed Impressions: Service Date/Time: Saturday, February 25, 2017 19:14 - CONCLUSION: 1. Unremarkable bowel gas pattern. 2. Vascular calcifications. 3. Gastrostomy tube in place. 4. Small linear calcifications projected over the right kidney. Jacky Lobo MD Tibia/Fibula X-Ray 02/24/17 1446 Signed Impressions: Service Date/Time: Friday, February 24, 2017 15:34 - CONCLUSION: Abnormalities at the ankle involving the foot. The proximal left tibia and fibula are intact Emil Kirby MD Foot X-Ray 02/24/17 1446 Signed Impressions: Service Date/Time: Friday, February 24, 2017 15:31 - CONCLUSION: Findings worrisome for multifocal osteomyelitis involving ankle and foot. Emil Kirby MD Chest X-Ray 02/24/17 1434 Signed Impressions: Service Date/Time: Friday, February 24, 2017 15:29 - CONCLUSION: 1. Mass-like density within the right lower lung field which is indeterminate. CT of the chest may be helpful for further evaluation of this finding. 2. Mild cardiomegaly. Yoan Roa MD PE at Discharge General Appearance: Well Developed, Comfortable, Malnourished Eyes Eye Exam: Pupils Equal, Pupils Reactive Ears & Nose Ears & Nose Exam: Nasal Mucosa [place] Neck Neck Exam: Neck Supple, Trachea Midline Pulmonary Resp Exam: Decreased Bases, Diminished Breath Sounds, Poor Inspiratory Effort Cardiology CV Exam: Regular Gastrointestinal/Abdomen GI Exam: Soft, Non-Tender, Bowel Sounds Present, Non-Distended Musculoskeletal MS Exam: Atrophy, Rigidity MS Remarks Left above-knee amputation Integumentary Skin Exam: Dry Extremeties Extremities Exam: No Edema Neurologic Neuro Exam: Awake VTE Prophylaxis VTE Prophylaxis Meds: Heparin Hospital Course She was evaluated in the emergency room, she was noted with a large deep wound to the left anterior ankle and foot that extends to the joint, she had black eschar and a strong odor. There was no palpable Doppler or posterior tibial pulses. CBC was remarkable for slight elevation in white blood count, 11.1. She was noted anemic with hemoglobin of 8, hematocrit 25.5. A&P was essentially unremarkable. X-ray of the left foot show multifocal osteomyelitis involving the ankle and foot. X-ray of the left tib-fib shows ankle and foot osteomyelitis. A chest x-ray showed masslike density within the right lower lung field which is indeterminate. CT of the chest may be helpful for further evaluation. There was also mild cardiomegaly. Vascular surgery was consulted for evaluation and Dr. Mccray and his nurse practitioner evaluated the patient for possible amputation in the morning. They have discussed the plan of care with the patient's family and they are in agreement and to proceed with surgery. A second opinion with Dr. Kam has been put in place per hospital protocol and he agrees with recommendation for AKA. Patient had been started on antibiotics, cultures have been obtained. 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 Patient was monitored and managed per surgery consult appreciate input Post op care was evaluated as well as her nutritional status. Patient's feedings were started back per PEG tube during her postop phase. Patient tolerated approximately 55 cc an hour without any nausea or vomiting Diabetes type 2 was monitored throughout hospital stay with Accu-Cheks and sliding scale. Patient's vital signs were monitored every 4 and treated for any abnormals Labs were monitored for any abnormals and treated, patient had abnormal urinalysis and was treated with antibiotics for UTI. Fever and labs were monitored Patient's CODE STATUS was full code full aggressive care during this hospital stay, she was returned back to her senior care setting. Hospice will be discussed after her admission back to facility of the family wishes. Right lower lobe mass, concerning of malignancy, patient showed no signs and symptoms of shortness of breath during her hospital stay She is normally on hospice Dementia, diabetes Hypertension halfway resident Pain control Discharged to nursing facility We will follow family preferences in regards to her lung mass If active management is desired she could have a lung biopsy Otherwise she could go back to her hospice care The decision could be made while the patient is at the senior care No indication to stay at the hospital at this time If biopsy is desired the patient could come back as a day case to interventional radiology Case management to arrange for discharge Discussed with nurse Patient was followed and discharged when medically stable per Dr. Dewitt. Pt Condition on Discharge: Guarded Discharge Disposition: Discharge to SNF Discharge Instructions DIET: Follow Instructions for: On Tube Feeding Activities you can perform: Continue Bedrest Follow up Referrals: Appointment for Follow Up @ [facility] with Dr. Mccray Follow up Cornelio DURAN (02/25/17) SNF/CUSTODIAL/ with [facility] New Medications: Hydrocodone-Acetaminophen ([place]) 5-325 mg Tab 1 TAB PO Q4H PRN PAIN #30 Ref 0 TAB Continued Medications: Aspirin DR (Aspirin Adult Low Strength) 81 Mg Tabdr 81 MG G-TUBE DAILY TAB Dextromethorphan-Guaifenesin (Tussin Dm 100-10 mg/5Ml) 1 Syp Syp 10 ML G-TUBE Q4HR PRN COUGH/CONGESTION Dextrose Gel (Glucose Gel) 40 % Gel 1 TUBE PO DIRECTED PRN IF CBG <60MG/DL & PT ALERT #3 Ref 0 TUBE Diltiazem (Diltiazem) 60 Mg Tab 60 MG G-TUBE QID Angina #120 Ref 0 TAB Ferrous Sulfate Liq (Ferrous Sulfate Liq) 300 Mg/5 Ml Soln 300 MG G-TUBE DAILY Nutritional Supplement #300 Ref 0 ML Glucagon (Rdna) Inj Kit (Glucagon Emergency Inj Kit) 1 Mg Kit 1 MG IM ONCE CBP < 60MG/DL&PT UNRESPONSIVE #1 Ref 0 KIT Insulin Detemir Inj (Levemir Inj) 1,000 unit/ 10 ML Vial 5 UNITS SQ BID Do not mix with any other Insulin. Blood Sugar Management Ref 0 VIAL Ipratropium-Albuterol Neb (Duoneb) 0.5-2.5 Mg/3 Ml Neb 3 ML NEB Q4HR PRN WHEEZING #30 Ref 0 NEBULE L. Acidophilus/Pectin, [place] (Acidophilus Capsule) 1 Each Capsule 100 MG G-TUBE BID Prophylaxis Loperamide HCl (Imodium A-D) 1 Mg/7.5 Ml Liquid 15 ML G-TUBE Q6HR PRN DIARRHEA Metoprolol Tartrate (Metoprolol Tartrate) 100 Mg Tab 100 MG G-TUBE Q12HR Hold if SBP <100 or DBP <60 *May Crush* #60 Ref 0 TAB Multiple Vitamins W/ Minerals (Certavite/Antioxidants) 1 Tab Tab 1 TAB G-TUBE DAILY Mupirocin Topical (Mupirocin Topical) 2 % Oint 1 APPLIC TOPICAL DAILY Apply to peg tube site after nss wash then cover w/gauze drain sponge Mgmt Bacterial Infection #1 Ref 0 TUBE ([Oxygen]) 2 LITER JOCEYLN.CANULA DIRECTED PRN SHORTNESS OF BREATH Discontinued Medications: Hydrocodone-Acetaminophen ([place]) 5-325 mg Tab 1 TAB G-TUBE Q6H Pain Management Ref 0 TAB Hydrocodone-Acetaminophen ([place]) 5-325 mg Tab 1 TAB G-TUBE Q4H PRN PAIN Ref 0 TAB Kaci Johns Mar 07, 2017 18:43
== END 2017-03-05 11:55 | DRG 239 ==
LOC: HOR 14:13 → NEDA 17:17 → N04B 21:11
PROVIDERS: ADMIT Specialist; ATTEND Specialist
PROC: 30233N1 Transfusion of Nonautologous Red Blood Cells into Peripheral Vein, Percutaneous Approach (ICD-10-PCS; 2017-02-24)
PROC: 0T9B70Z Drainage of Bladder with Drainage Device, Via Natural or Artificial Opening (ICD-10-PCS; 2017-02-24)
PROC: 0Y6D0Z3 Detachment at Left Upper Leg, Low, Open Approach (ICD-10-PCS; principal; 2017-02-25 15:35)
DX: E11.52 Type 2 diabetes mellitus with diabetic peripheral angiopathy with gangrene (principal); L89.154 Pressure ulcer of sacral region, stage 4; E11.69 Type 2 diabetes mellitus with other specified complication; M86.272 Subacute osteomyelitis, left ankle and foot; F03.90 Unspecified dementia, unspecified severity, without behavioral disturbance, psychotic disturbance, mood disturbance, and anxiety; I69.354 Hemiplegia and hemiparesis following cerebral infarction affecting left non-dominant side; R47.01 Aphasia; M35.00 Sjogren syndrome, unspecified; N39.0 Urinary tract infection, site not specified; I69.90 Unspecified sequelae of unspecified cerebrovascular disease; M24.50 Contracture, unspecified joint; Z93.1 Gastrostomy status; S91.302A Unspecified open wound, left foot, initial encounter; E78.5 Hyperlipidemia, unspecified; I51.7 Cardiomegaly; I73.9 Peripheral vascular disease, unspecified; Z86.14 Personal history of Methicillin resistant Staphylococcus aureus infection; Z87.891 Personal history of nicotine dependence; Z74.01 Bed confinement status; I25.10 Atherosclerotic heart disease of native coronary artery without angina pectoris; D50.9 Iron deficiency anemia, unspecified; K21.9 Gastro-esophageal reflux disease without esophagitis; R91.8 Other nonspecific abnormal finding of lung field
CPT/HCPCS: 36430; 71010; 71250; 73590; 73630; 74000; 80048; 80053; 80202; 81001; 82565; 82948; 83605; 85025; 85027; 85610; 85730; 86850; 86900; 86901; 86920; 86922; 87040; 87070; 87077; 87186; 88307; 88311; 96374; 96375; J1644; J1815; J2270; J2370; J2405; J2543; J3010; J3370; J7030; J7050; P9016

== ENCOUNTER 2018-09-18 18:25 | Inpatient (IN) ==
[2018-09-18] MEDS: Sod Chloride 0.9% Inj 1,000 ML IV.SIG SCH ×2 (18:35→19:52)
[2018-09-18] MEDS ORDERED: Acetaminophen 650 MG Supp RECTAL ONE (18:40)
[2018-09-18] MEDS ORDERED: Etomidate Inj 40 MG/20 ML Vial IV.PUSH ONE (18:45)
[2018-09-18] MEDS ORDERED: Bisacodyl 10 MG Supp RECTAL PRN (18:52)
[2018-09-18] MEDS ORDERED: Morphine Sulfate Inj 2 MG/ML Vial IV.PUSH PRN (18:52)
[2018-09-18] MEDS ORDERED: Etomidate Inj 20 MG/10 ML Ampul IV.PUSH ONE (18:59)
[2018-09-18] MEDS ORDERED: Propofol 1000 mg/100 ml Inj 1,000 MG/100 ML BOTTLE IV.CONT PRN (18:59)
[2018-09-18] MEDS ORDERED: Succinylcholine Inj 200 MG/10 ML Vial IV.PUSH ONE (18:59)
--- NOTE | 2018-09-18 18:59 | ED ---
HPI General Chief complaint: Altered Mental Status Stated complaint: weakness Time Seen by Provider: 09/18/18 18:40 History of Present Illness HPI narrative: Patient is a 68-year-old female who was on hospice until just prior to arrival for history of stroke presents emergency department for evaluation of fever and altered mental status. According to EMS the patient had not required oxygen until beginning of this week when she had gradual increased demand of her oxygen. End-tidal CO2 prior to arrival was 6. Initial room nasal cannula saturation was 91, she was placed on nonrebreather position of comfort and transfer to emergency department. EMS related that the had elected to revoke the patient's DNR and hospice care prior to transferring her to the hospital. The patient apparently is normally a GCS of 14, apparently she does take some thickened food p.o. Patient is a GCS of 6 on arrival [id number] and therefore no further history is readily available. Related Data Home Medications Medication Instructions Recorded Confirmed Lactobacillus acidophilus 100 mg PO DAILY 09/18/18 09/18/18 [Acidophilus] acetaminophen [Tylenol] 650 mg FEEDING TUBE Q6H PRN 09/18/18 09/18/18 ascorbic acid (vitamin C) [Vitamin 500 mg FEEDING TUBE DAILY 09/18/18 09/18/18 C] aspirin 81 mg FEEDING TUBE DAILY 09/18/18 09/18/18 clonidine HCl 0.1 mg FEEDING TUBE DAILY PRN 09/18/18 09/18/18 dextrose [Glucose Gel] 15 g PO DIRECTED PRN 09/18/18 09/18/18 diltiazem HCl 60 mg FEEDING TUBE QID 09/18/18 09/18/18 glucagon (human recombinant) 1 mg IM DIRECTED PRN 09/18/18 09/18/18 [Glucagon Emergency Kit (human)] guaifenesin [Tussin] 200 mg FEEDING TUBE Q4H PRN 09/18/18 09/18/18 hydrocodone-acetaminophen [Hensley] 1 tab FEEDING TUBE Q6H PRN 09/18/18 09/18/18 insulin detemir U-100 [Levemir 5 unit SUBCUT BID 09/18/18 09/18/18 U-100 Insulin] ipratropium-albuterol 3 ml INHALATION Q4H PRN 09/18/18 09/18/18 loperamide 2 mg FEEDING TUBE Q6H PRN 09/18/18 09/18/18 metoprolol tartrate 100 mg FEEDING TUBE Q12HR 09/18/18 09/18/18 multivitamin 1 tab FEEDING TUBE DAILY 09/18/18 09/18/18 Allergies Allergy/AdvReac Type Severity Reaction Status Date / Time *MDRO Multi-Drug Resistant AdvReac Unknown UNKNOWN Uncoded 09/18/18 18:40 [facility] Medical History Medical History Acute respiratory failure (Acute) CVA (cerebral vascular accident) (Acute) Diabetes (Acute) Dysphagia (Acute) HTN (hypertension) (Acute) Hemiparesis (Acute) Hemiplegia (Acute) History of left above knee amputation (Acute) Hypoxia (Acute) Surgical History Surgical History S/P percutaneous endoscopic gastrostomy (PEG) tube placement (Acute) Social History Social History Substance History: Unable to Obtain Second Hand Smoke Exposure: No Smoking Status: Unknown if ever smoked How Often Do You Have a Drink Containing Alcohol: Unable to Obtain Recent Travel in [place] within the Last 8 Weeks: No Recent Out of Country Travel within the Last 8 Weeks: No Exam Narrative Exam Narrative: GENERAL: Well-developed well-nourished toxic-appearing female. SKIN: Focused skin assessment clammy skin with decreased skin turgor peer HEAD: Atraumatic. Normocephalic. EYES: Pupils equal and round. No scleral icterus. No injection or drainage. ENT: No nasal bleeding or discharge. Mucous membranes pink and moist. There are only 2 teeth present in the oropharynx prior to intubation, she had significant white thick mucus at the tracheal orifice. NECK: Trachea midline. No JVD. CARDIOVASCULAR: Regular rhythm with tachycardia.. No murmur appreciated. RESPIRATORY: Anterior lung sounds are distant, posterior lung sounds could not not readily be auscultated. GASTROINTESTINAL: Abdomen soft, non-tender, nondistended. Hepatic and splenic margins not palpable. Barnard catheter in place. Cloudy white urine evident. MUSCULOSKELETAL: AKA on the left. No clubbing. No cyanosis. No edema. NEUROLOGICAL: GCS of 6 as documented above. Will not follow any commands has no response from painful stimuli. Procedures Intubation Time Out Performed: Yes (Consent obtained from prior to intubation.) Sedative: etomidate Mg Given: 20 Paralytic: succinylcholine Mg Given: 100 Laryngoscope: Corinne ET Tube Size: 8 ET Tube Uncuffed: No Tube Secured Depth (cm): 22 Tube Secured Location: lips Tube Placement Confirmation: visualized tube passing through cords, equal breath sounds bilaterally, no breath sounds over epigastrium and confirmation by capnometry Patient Tolerated Procedure: well Intubation Complications: none Course Initial Documented Vital Signs Temperature 101.9 F H 09/18/18 18:27 Pulse Rate 112 H 09/18/18 18:27 Respiratory Rate 32 H 09/18/18 18:27 Blood Pressure 120/57 L 09/18/18 18:27 Pulse Oximetry 100 09/18/18 18:27 Last Documented Vital Signs Temperature 99.3 F 09/19/18 07:00 Pulse Rate 84 09/19/18 07:00 Respiratory Rate 20 09/19/18 07:00 Blood Pressure 112/57 L 09/19/18 07:00 Pulse Oximetry 100 09/19/18 07:00 Medical Decision Making MDM Narrative Medical decision making narrative: Patient room to the emergency department, she appears critically ill. Her saturations were tolerated for the moment and I quickly proceeded to call her . I spoke briefly with the and explained her critical condition discussed that she was having problems oxygenating and I have strong suspicion that she is building up CO2 and her blood as well. I discussed with him briefly her wishes at this time and family' s wishes. He restated to me that he would like "everything" to be done. I told him that I would have to intubate her in brief for her with a machine place her in a medically induced coma to treat her further and that despite these measures she may end up dying regardless. He reiterated his consent and his revocation of the DNR and hospice status over the phone to me. The patient was then intubated, tolerated procedure well, she is having some coughing for the tube and will be sedated with propofol. Vancomycin and Zosyn, 2 L normal saline. Barnard catheter was exchanged, ABG pending, CT head pending. Dr. hess of the ICU doctor is in the emergency department and offered to assume care of the patient at this time. Shortly after admission, i took report of a Na of 162. At this point will continue to resuscitate with isotonic fluid. Medical Screen Exam Complete: Yes Emergency Medical Condition: Yes Lab Data Result diagrams: 09/19/18 04:06 09/19/18 04:06 Lab Results 09/18/18 09/18/18 09/18/18 Range/Units 18:35 18:44 18:44 WBC (4.0-11.0) th/mm3 RBC (4.00-5.30) mil/mm3 Hgb (11.6-15.3) gm/dL Hct (35.0-46.0) % MCV (80.0-100.0) fL MCH (27.0-34.0) pg MCHC (32.0-36.0) % RDW (11.6-17.2) % Plt Count (150-450) th/mm3 MPV (7.0-11.0) fL Neut % (Auto) (16.0-70.0) % Lymph % (Auto) (9.0-44.0) % Carson % (Auto) (0.0-8.0) % Eos % (Auto) (0.0-4.0) % Baso % (Auto) (0.0-2.0) % Neut # (Auto) (1.8-7.7) th/mm3 Lymph # (Auto) (1.0-4.8) th/mm3 Carson # (Auto) (0.0-0.9) th/mm3 Eos # (Auto) (0.0-0.4) th/mm3 Baso # (Auto) (0.0-0.2) th/mm3 WBC Differential Differential Comment PT 10.2 (9.8-11.6) sec INR 1.0 Ratio APTT 24.9 (23.4-31.7) sec Puncture Site Patient Temperature O2 Saturation (90-100) % ABG pH (7.380-7.420) ABG pCO2 (38-42) mmHg ABG pO2 (61-120) mmHg ABG HCO3 (22-26) mmol/L ABG O2 Content (12.0-20.0) Vol % ABG Base Excess (-2-2) mmol/L ABG Methemoglobin (0-2) % Hemoglobin (12.0-16.0) G/DL Carboxyhemoglobin (0-4) % O2 Delivery Device Vent Setting Inspired O2 % Critical Value Sodium (136-145) meq/L Potassium (3.5-5.1) meq/L Chloride (98-107) meq/L Carbon Dioxide (21.0-32.0) meq/L Anion Gap (5-15) meq/L BUN (7-18) mg/dL Creatinine (0.50-1.00) mg/dL Estimated GFR (>89) mL/min Random Glucose (74-106) mg/dL Lactic Acid (0.4-2.0) mmol/L Calcium (8.5-10.1) mg/dL Calcium Adj for Albumin (8.5-10.1) mg/dL Phosphorus (2.5-4.9) mg/dL Magnesium (1.5-2.5) mg/dL Total Bilirubin (0.2-1.0) mg/dL AST (15-37) U/L ALT (10-53) U/L Alkaline Phosphatase (45-117) U/L Troponin I Cancelled Total Protein (6.4-8.2) g/dL Albumin (3.4-5.0) g/dL Urine Color Yellow (Yellw/Straw) Urine Clarity Cloudy H (Clear) Urine pH 8.0 (5.0-8.5) Ur Specific [place] 1.024 (1.002-1.035) Urine Protein 100 H (Neg-Trace) mg/dL Urine Glucose (UA) Negative (Negative) mg/dL Urine Ketones Negative (Negative) mg/dL Urine Occult Blood Moderate H (Negative) Urine Nitrate Negative (Negative) Urine Bilirubin Negative (Negative) Urine Urobilinogen Less than 2 (Less than 2) mg/dL Ur Leukocyte Esterase Moderate H (Negative) Urine RBC (0-3) /hpf Urine WBC (0-5) /hpf Urine WBC Clumps Many H (None) Ur Squamous Epith Cells 4 (0-5) /hpf Triple Phos Crystals Many H (None) /hpf Urine Bacteria Moderate H (None) /hpf Urine Mucus Many H (Occasional) /lpf Micro UA Comment Cath-culture ind Ur Microscopic Review Not Reportable Urine Culture Comments Cath-cult indicated Nasal Screen MRSA (PCR) (Negative) 09/18/18 09/18/18 09/18/18 Range/Units 18:44 18:44 18:56 WBC 11.2 H (4.0-11.0) th/mm3 RBC 4.13 (4.00-5.30) mil/mm3 Hgb 9.1 L (11.6-15.3) gm/dL Hct 32.2 L (35.0-46.0) % MCV 78.0 L (80.0-100.0) fL MCH 22.1 L (27.0-34.0) pg MCHC 28.4 L (32.0-36.0) % RDW 18.2 H (11.6-17.2) % Plt Count 352 (150-450) th/mm3 MPV 10.7 (7.0-11.0) fL Neut % (Auto) 72.3 H (16.0-70.0) % Lymph % (Auto) 14.2 (9.0-44.0) % Carson % (Auto) 8.7 H (0.0-8.0) % Eos % (Auto) 4.1 H (0.0-4.0) % Baso % (Auto) 0.7 (0.0-2.0) % Neut # (Auto) 8.1 H (1.8-7.7) th/mm3 Lymph # (Auto) 1.6 (1.0-4.8) th/mm3 Carson # (Auto) 1.0 H (0.0-0.9) th/mm3 Eos # (Auto) 0.5 H (0.0-0.4) th/mm3 Baso # (Auto) 0.1 (0.0-0.2) th/mm3 WBC Differential . Differential Comment Auto diff final PT (9.8-11.6) sec INR Ratio APTT (23.4-31.7) sec Puncture Site Patient Temperature O2 Saturation (90-100) % ABG pH (7.380-7.420) ABG pCO2 (38-42) mmHg ABG pO2 (61-120) mmHg ABG HCO3 (22-26) mmol/L ABG O2 Content (12.0-20.0) Vol % ABG Base Excess (-2-2) mmol/L ABG Methemoglobin (0-2) % Hemoglobin (12.0-16.0) G/DL Carboxyhemoglobin (0-4) % O2 Delivery Device Vent Setting Inspired O2 % Critical Value Sodium 163 H* (136-145) meq/L Potassium 3.4 L (3.5-5.1) meq/L Chloride 129 H (98-107) meq/L Carbon Dioxide 30.7 (21.0-32.0) meq/L Anion Gap 3 L (5-15) meq/L BUN 47 H (7-18) mg/dL Creatinine 0.68 (0.50-1.00) mg/dL Estimated GFR Greater than 89 (>89) mL/min Random Glucose 115 H (74-106) mg/dL Lactic Acid 1.2 (0.4-2.0) mmol/L Calcium 6.6 L* (8.5-10.1) mg/dL Calcium Adj for Albumin 8.4 L (8.5-10.1) mg/dL Phosphorus (2.5-4.9) mg/dL Magnesium 2.8 H (1.5-2.5) mg/dL Total Bilirubin 0.2 (0.2-1.0) mg/dL AST 18 (15-37) U/L ALT 17 (10-53) U/L Alkaline Phosphatase 74 (45-117) U/L Troponin I 0.12 H Total Protein 6.8 (6.4-8.2) g/dL Albumin 1.8 L (3.4-5.0) g/dL Urine Color (Yellw/Straw) Urine Clarity (Clear) Urine pH (5.0-8.5) Ur Specific [place] (1.002-1.035) Urine Protein (Neg-Trace) mg/dL Urine Glucose (UA) (Negative) mg/dL Urine Ketones (Negative) mg/dL Urine Occult Blood (Negative) Urine Nitrate (Negative) Urine Bilirubin (Negative) Urine Urobilinogen (Less than 2) mg/dL Ur Leukocyte Esterase (Negative) Urine RBC (0-3) /hpf Urine WBC (0-5) /hpf Urine WBC Clumps (None) Ur Squamous Epith Cells (0-5) /hpf Triple Phos Crystals (None) /hpf Urine Bacteria (None) /hpf Urine Mucus (Occasional) /lpf Micro UA Comment Ur Microscopic Review Urine Culture Comments Nasal Screen MRSA (PCR) (Negative) 09/18/18 09/18/18 09/19/18 Range/Units 19:20 22:46 04:06 WBC 8.2 (4.0-11.0) th/mm3 RBC 3.61 L (4.00-5.30) mil/mm3 Hgb 8.2 L (11.6-15.3) gm/dL Hct 28.4 L (35.0-46.0) % MCV 78.6 L (80.0-100.0) fL MCH 22.8 L (27.0-34.0) pg MCHC 29.0 L (32.0-36.0) % RDW 18.1 H (11.6-17.2) % Plt Count 292 (150-450) th/mm3 MPV 11.0 (7.0-11.0) fL Neut % (Auto) 81.5 H (16.0-70.0) % Lymph % (Auto) 12.9 (9.0-44.0) % Carson % (Auto) 2.8 (0.0-8.0) % Eos % (Auto) 2.3 (0.0-4.0) % Baso % (Auto) 0.5 (0.0-2.0) % Neut # (Auto) 6.7 (1.8-7.7) th/mm3 Lymph # (Auto) 1.1 (1.0-4.8) th/mm3 Carson # (Auto) 0.2 (0.0-0.9) th/mm3 Eos # (Auto) 0.2 (0.0-0.4) th/mm3 Baso # (Auto) 0.0 (0.0-0.2) th/mm3 WBC Differential . Differential Comment Auto diff final PT (9.8-11.6) sec INR Ratio APTT (23.4-31.7) sec Puncture Site Right brachial Patient Temperature 98.6 O2 Saturation 97 (90-100) % ABG pH 7.35 L (7.380-7.420) ABG pCO2 57 H* (38-42) mmHg ABG pO2 126 H (61-120) mmHg ABG HCO3 31 H (22-26) mmol/L ABG O2 Content 12.5 (12.0-20.0) Vol % ABG Base Excess 5.2 H (-2-2) mmol/L ABG Methemoglobin 0.6 (0-2) % Hemoglobin 9.0 L (12.0-16.0) G/DL Carboxyhemoglobin 1.3 (0-4) % O2 Delivery Device Ventilator Vent Setting Inspired O2 50 % Critical Value Yes Sodium (136-145) meq/L Potassium (3.5-5.1) meq/L Chloride (98-107) meq/L Carbon Dioxide (21.0-32.0) meq/L Anion Gap (5-15) meq/L BUN (7-18) mg/dL Creatinine (0.50-1.00) mg/dL Estimated GFR (>89) mL/min Random Glucose (74-106) mg/dL Lactic Acid (0.4-2.0) mmol/L Calcium (8.5-10.1) mg/dL Calcium Adj for Albumin (8.5-10.1) mg/dL Phosphorus (2.5-4.9) mg/dL Magnesium (1.5-2.5) mg/dL Total Bilirubin (0.2-1.0) mg/dL AST (15-37) U/L ALT (10-53) U/L Alkaline Phosphatase (45-117) U/L Troponin I Total Protein (6.4-8.2) g/dL Albumin (3.4-5.0) g/dL Urine Color (Yellw/Straw) Urine Clarity (Clear) Urine pH (5.0-8.5) Ur Specific [place] (1.002-1.035) Urine Protein (Neg-Trace) mg/dL Urine Glucose (UA) (Negative) mg/dL Urine Ketones (Negative) mg/dL Urine Occult Blood (Negative) Urine Nitrate (Negative) Urine Bilirubin (Negative) Urine Urobilinogen (Less than 2) mg/dL Ur Leukocyte Esterase (Negative) Urine RBC (0-3) /hpf Urine WBC (0-5) /hpf Urine WBC Clumps (None) Ur Squamous Epith Cells (0-5) /hpf Triple Phos Crystals (None) /hpf Urine Bacteria (None) /hpf Urine Mucus (Occasional) /lpf Micro UA Comment Ur Microscopic Review Urine Culture Comments Nasal Screen MRSA (PCR) Not detected (Negative) 09/19/18 09/19/18 09/19/18 Range/Units 04:06 04:06 04:06 WBC (4.0-11.0) th/mm3 RBC (4.00-5.30) mil/mm3 Hgb (11.6-15.3) gm/dL Hct (35.0-46.0) % MCV (80.0-100.0) fL MCH (27.0-34.0) pg MCHC (32.0-36.0) % RDW (11.6-17.2) % Plt Count (150-450) th/mm3 MPV (7.0-11.0) fL Neut % (Auto) (16.0-70.0) % Lymph % (Auto) (9.0-44.0) % Carson % (Auto) (0.0-8.0) % Eos % (Auto) (0.0-4.0) % Baso % (Auto) (0.0-2.0) % Neut # (Auto) (1.8-7.7) th/mm3 Lymph # (Auto) (1.0-4.8) th/mm3 Carson # (Auto) (0.0-0.9) th/mm3 Eos # (Auto) (0.0-0.4) th/mm3 Baso # (Auto) (0.0-0.2) th/mm3 WBC Differential Differential Comment PT 10.2 (9.8-11.6) sec INR 1.0 Ratio APTT 21.7 L (23.4-31.7) sec Puncture Site Patient Temperature O2 Saturation (90-100) % ABG pH (7.380-7.420) ABG pCO2 (38-42) mmHg ABG pO2 (61-120) mmHg ABG HCO3 (22-26) mmol/L ABG O2 Content (12.0-20.0) Vol % ABG Base Excess (-2-2) mmol/L ABG Methemoglobin (0-2) % Hemoglobin (12.0-16.0) G/DL Carboxyhemoglobin (0-4) % O2 Delivery Device Vent Setting Inspired O2 % Critical Value Sodium 162 H* (136-145) meq/L Potassium 3.1 L (3.5-5.1) meq/L Chloride 126 H (98-107) meq/L Carbon Dioxide 26.3 (21.0-32.0) meq/L Anion Gap 10 (5-15) meq/L BUN 45 H (7-18) mg/dL Creatinine 0.93 (0.50-1.00) mg/dL Estimated GFR 72 L (>89) mL/min Random Glucose 123 H (74-106) mg/dL Lactic Acid 4.1 H* (0.4-2.0) mmol/L Calcium 7.6 L D (8.5-10.1) mg/dL Calcium Adj for Albumin (8.5-10.1) mg/dL Phosphorus 1.6 L (2.5-4.9) mg/dL Magnesium 2.9 H (1.5-2.5) mg/dL Total Bilirubin 0.4 (0.2-1.0) mg/dL AST 37 (15-37) U/L ALT 24 (10-53) U/L Alkaline Phosphatase 91 (45-117) U/L Troponin I Total Protein 7.5 D (6.4-8.2) g/dL Albumin 2.0 L (3.4-5.0) g/dL Urine Color (Yellw/Straw) Urine Clarity (Clear) Urine pH (5.0-8.5) Ur Specific [place] (1.002-1.035) Urine Protein (Neg-Trace) mg/dL Urine Glucose (UA) (Negative) mg/dL Urine Ketones (Negative) mg/dL Urine Occult Blood (Negative) Urine Nitrate (Negative) Urine Bilirubin (Negative) Urine Urobilinogen (Less than 2) mg/dL Ur Leukocyte Esterase (Negative) Urine RBC (0-3) /hpf Urine WBC (0-5) /hpf Urine WBC Clumps (None) Ur Squamous Epith Cells (0-5) /hpf Triple Phos Crystals (None) /hpf Urine Bacteria (None) /hpf Urine Mucus (Occasional) /lpf Micro UA Comment Ur Microscopic Review Urine Culture Comments Nasal Screen MRSA (PCR) (Negative) Imaging Data Radiologist's impression: Head CT 09/18/18 18:40 CONCLUSION: 1. Stable appearance of the brain. Marked ventriculomegaly and white matter disease. . Chest X-Ray 09/18/18 18:41 CONCLUSION: 8.6 cm right lower lobe mass is noted suspicious for malignancy until proven otherwise. A mass was described previously in 2017 in the right lower lobe. Chest CTA 09/18/18 19:26 CONCLUSION: 1. There is no evidence for pulmonary embolism. 2. Severe emphysema. 3. There is a large soft tissue mass in the right lower lobe suspicious for malignancy until proven otherwise. Discharge Plan Discharge Disposition Patient Disposition: ED Admit(ED Internal Use Only) Discharge Order Discharge Orders: ED Use Only Admit Order (Routine); Ordered 09/18/18 Ordered By: Yoan Epstein Physicians Team ED Provider: Yoan Epstein Primary Care Provider: UNKNOWN, Attending Provider: Dylan Christiansen Other Providers: Elena Canchola Status ED Status: Left Department Discharge Information Discharge Date/Time: 09/18/18 22:38
[2018-09-18] MEDS ORDERED: Vancomycin Inj 1,000 MG in Sodium Chlor 0.9% Inj 250 ML IV.SIG SCH (19:00)
[2018-09-18] MEDS: Piperacil/Tazo 4.5 GM Premix 4.5 GM/100 ML BAG IV.SIG SCH ×2 (19:10→19:36)
[2018-09-18] MEDS ORDERED: Vancomycin Consult Pharmacy OTHER PRN (19:12)
[2018-09-18 19:13] LABS: Baso # (Auto) 0.1 th/mm3 (0.0-0.2); Baso % (Auto) 0.7 % (0.0-2.0); Eos # (Auto) 0.5 th/mm3 (0.0-0.4); Eos % (Auto) 4.1 % (0.0-4.0); Hematocrit 32.2 % (35.0-46.0); Hemoglobin 9.1 gm/dL (11.6-15.3); Lymph # (Auto) 1.6 th/mm3 (1.0-4.8); Lymph % (Auto) 14.2 % (9.0-44.0); Mean Corpuscular Hemoglobin 22.1 pg (27.0-34.0); Mean Platelet Volume 10.7 fL (7.0-11.0); Mono % (Auto) 8.7 % (0.0-8.0); Neut # (Auto) 8.1 th/mm3 (1.8-7.7); Neut % (Auto) 72.3 % (16.0-70.0); Platelet Count 352 th/mm3 (150-450); Red Blood Count 4.13 mil/mm3 (4.00-5.30); Red Cell Distribution Width 18.2 % (11.6-17.2); White Blood Count 11.2 th/mm3 (4.0-11.0)
[2018-09-18] MEDS: Propofol 1000 mg/100 ml Inj 1,000 MG/100 ML BOTTLE IV.CONT PRN (19:15)
[2018-09-18 19:18] LABS: Mean Corpuscular HGB Conc 28.4 % (32.0-36.0)
--- NOTE | 2018-09-18 19:22 | XR ---
EXAM DATE: 09/18/2018 7:01 PM EST AGE/SEX: 68 years / Female INDICATIONS: Post intubation. CLINICAL DATA: This is the patient's initial encounter. Patient reports that signs and symptoms have been present for 1 day and indicates a pain score of Nonresponsive. MEDICAL/SURGICAL HISTORY: Non-responsive. Non-responsive. [place] [facility] [place] [facility] [place]. . FINDINGS: Endotracheal tube is noted and the distal tip projects 2.5 cm above the mila. There is a mass in th e right lung base and patchy parenchymal density in the left lower lobe. No obvious effusions. Osseou s structures are intact. CONCLUSION: 8.6 cm right lower lobe mass is noted suspicious for malignancy until proven otherwise. A mass was de scribed previously in 2017 in the right lower lobe. Electronically signed by: Inocente Tripathi MD Board Certified Radiologist 09/18/2018 7:21 PM EST
[2018-09-18 19:27] LABS: Activated Partial Thrombo Time 24.9 sec (23.4-31.7); Prothrombin Time 10.2 sec (9.8-11.6)
[2018-09-18 19:45] LABS: Alanine Aminotransferase 17 U/L (10-53); Albumin 1.8 g/dL (3.4-5.0); Alkaline Phosphatase 74 U/L (45-117); Anion Gap 3 meq/L (5-15); Aspartate Aminotransferase 18 U/L (15-37); Blood Urea Nitrogen 47 mg/dL (7-18); Calcium 6.6 mg/dL (8.5-10.1); Carbon Dioxide 30.7 meq/L (21.0-32.0); Chloride 129 meq/L (98-107); Glomerular Filtration Rate Greater Than 89 mL/min (>89); Glucose,Random 115 mg/dL (74-106); Magnesium 2.8 mg/dL (1.5-2.5); Potassium 3.4 meq/L (3.5-5.1); Total Protein 6.8 g/dL (6.4-8.2)
[2018-09-18 19:48] LABS: Sodium 163 meq/L (136-145)
--- NOTE | 2018-09-18 19:48 | P.HPCC ---
History of Present Illness History of Present Illness: 68-year-old female past medical history of stroke, left BKA, who was on home hospice until just prior to arrival, presents for an evaluation of fever and altered mental status. According to EMS the patient had not required oxygen until beginning of this week when she had gradual increased demand of her oxygen. End-tidal CO2 prior to arrival was 6. Initial room nasal cannula saturation was 91, she was placed on nonrebreather position of comfort and transfer to emergency department. EMS related that the had elected to revoke the patient's DNR and hospice care prior to transferring her to the hospital. The patient apparently is normally a GCS of 14, apparently she does take some thickened food p.o. department the patient was severely altered with GCS of 6 on arrival [id number] and was intubated by ED attending for an airway protection. Inpatient Certification: I certify that the inpatient services were ordered in accordance with Medicare regulations governing the order. This includes certification that hospital inpatient services are reasonable and necessary and in the case of services not specified as inpatient-only under 42 CFR 419.22(n), that they are appropriately provided as inpatient services in accordance to with the 2-midnight benchmark under 43 CFR 412.3(e) Estimated Total Length of Stay (Days): 5 Plans for Post Hospital Care: Not yet determined Review of Systems unobtainable due to endotracheal tube PMFSH - History History Provided By: Medical Record - Medical History Medical History: Medical History (Last Updated 09/18/18 @ 19:02 by [employer]) Acute respiratory failure CVA (cerebral vascular accident) Diabetes Dysphagia HTN (hypertension) Hemiparesis Hemiplegia History of left above knee amputation Hypoxia - Surgical History Surgical History: Surgical History (Last Updated 09/18/18 @ 19:02 by [employer]) S/P percutaneous endoscopic gastrostomy (PEG) tube placement - Tobacco History Second Hand Smoke Exposure: No Tobacco Use In Past 30 Days: No Smoking Status: Unknown if ever smoked - Alcohol History How Often Do You Have a Drink Containing Alcohol: Unable to Obtain - Substance Use History Substance History: Unable to Obtain - Travel History Recent Travel in the [facility] Within the Last 8 Weeks: No Recent Travel Out of the Country Within the Last 8 Weeks: No - Immunization History Tetanus Immunization: Unsure Medications and Allergies Active Medications: Active Medications Acetaminophen (Tylenol) 650 mg PO Q6H PRN PRN Reason: PAIN 1-10 AND/OR FEVER >101F Al Hydroxide/Mg Hydroxide (Milk Of Magnesia Liq) 30 ml PO Q12H PRN PRN Reason: Mild Constipation Albuterol (Duoneb Neb (Prn)) 1 ampul NEB Q2HR NEB PRN PRN Reason: WHEEZING Bisacodyl (Dulcolax Supp) 10 mg RECTAL DAILY PRN PRN Reason: SEVERE CONSITIPATION Chlorhexidine Gluconate (Peridex 0.12% Oral Kit) 15 ml OROPHARYNG BID@0800, 2000 JORGE Chlorhexidine Gluconate (Chlorhexidine 2% Cloth) 3 pack TOPICAL DAILY@0400 JORGE Stop: 09/24/18 03:59 Chlorhexidine Gluconate (Chlorhexidine 2% Cloth) 3 pack TOPICAL DAILY@0400 PRN PRN Reason: Extra cloth needed Stop: 09/24/18 03:59 Famotidine (Pepcid Pf Inj) 20 mg IV.PUSH Q12HR JORGE Heparin Sodium (Porcine) (Heparin Inj) 5,000 units SQ Q8H JORGE Piperacillin/Tazobactam/Dextrose (Zosyn 4.5 Gm Premix) 4.5 gm in 100 mls @ 200 mls/hr IV.SIG ONCE JORGE Last Admin: 09/18/18 19:36 Dose: 200 mls/hr Sodium Chloride (Ns Inj) 1,000 mls @ 154 mls/hr IV.CONT .Q6H30M JORGE Propofol (Diprivan 1000 Mg/100 Ml Inj) 1,000 mg in 100 mls @ 2.041 mls/hr IV.CONT TITRATE PRN; Protocol PRN Reason: Per Protocol Last Admin: 09/18/18 19:15 Dose: 5 mcg/kg/min, 2.04 mls/hr Piperacillin/Tazobactam/Dextrose (Zosyn 4.5 Gm Premix) 4.5 gm in 100 mls @ 200 mls/hr IV.SIG Q6H JORGE Vancomycin HCl 1,000 mg/ (Sodium Chloride) 250 mls @ 250 mls/hr IV.SIG ONCE ONE Stop: 09/18/18 20:59 Lactulose (Lactulose Liq) 30 ml PO DAILY PRN PRN Reason: SEVERE CONSITIPATION Midazolam HCl (Versed Inj) 2 mg IV.PUSH Q1H PRN PRN Reason: SEDATION Miscellaneous Information (Misc Rass Change Order) 1 each OTHER ONCE ONE Stop: 09/18/18 20:01 Miscellaneous Medication () 1 each OROPHARYNG 0000,0400,1200,1600 JORGE Morphine Sulfate (Morphine Inj) 2 mg IV.PUSH Q2H PRN PRN Reason: PAIN SCALE 6 TO 10 Ondansetron HCl (Zofran Inj) 4 mg IV.PUSH Q6H PRN PRN Reason: NAUSEA OR VOMITING Pharmacy Profile Note (Vancomycin Consult Pharmacy) 1 each OTHER UNSCH PRN PRN Reason: Pharmacy to dose Senna/Docusate Sodium (Rosana-Colace) 1 tab PO BID JORGE Sennosides (Senokot) 17.2 mg PO Q12H PRN PRN Reason: Moderate Constipation Sodium Chloride (Ns Flush) 2 ml IV.FLUSH BID JORGE Sodium Chloride (Ns Flush) 2 ml IV.FLUSH PRN PRN PRN Reason: FLUSH AFTER USING IV ACCESS Allergies Allergy/AdvReac Type Severity Reaction Status Date / Time *MDRO Multi-Drug Resistant AdvReac Unknown UNKNOWN Uncoded 09/18/18 18:40 Organism Home Medications Medication Instructions Recorded Confirmed Type Lactobacillus acidophilus 100 mg PO DAILY 09/18/18 09/18/18 History [Acidophilus] acetaminophen [Tylenol] 650 mg FEEDING TUBE Q6H PRN 09/18/18 09/18/18 History ascorbic acid (vitamin C) [Vitamin 500 mg FEEDING TUBE DAILY 09/18/18 09/18/18 History C] aspirin 81 mg FEEDING TUBE DAILY 09/18/18 09/18/18 History clonidine HCl 0.1 mg FEEDING TUBE DAILY PRN 09/18/18 09/18/18 History dextrose [Glucose Gel] 15 g PO DIRECTED PRN 09/18/18 09/18/18 History diltiazem HCl 60 mg FEEDING TUBE QID 09/18/18 09/18/18 History glucagon (human recombinant) 1 mg IM DIRECTED PRN 09/18/18 09/18/18 History [Glucagon Emergency Kit (human)] guaifenesin [Tussin] 200 mg FEEDING TUBE Q4H PRN 09/18/18 09/18/18 History hydrocodone-acetaminophen [[place]] 1 tab FEEDING TUBE Q6H PRN 09/18/18 09/18/18 History insulin detemir U-100 [Levemir 5 unit SUBCUT BID 09/18/18 09/18/18 History U-100 Insulin] ipratropium-albuterol 3 ml INHALATION Q4H PRN 09/18/18 09/18/18 History loperamide 2 mg FEEDING TUBE Q6H PRN 09/18/18 09/18/18 History metoprolol tartrate 100 mg FEEDING TUBE Q12HR 09/18/18 09/18/18 History multivitamin 1 tab FEEDING TUBE DAILY 09/18/18 09/18/18 History Results - Labs CBC & Chem 7: 09/19/18 04:06 09/18/18 18:44 Labs: Short CBC 09/18/18 Range/Units 18:44 WBC 11.2 H (4.0-11.0) th/mm3 Hgb 9.1 L (11.6-15.3) gm/dL Hct 32.2 L (35.0-46.0) % Plt Count 352 (150-450) th/mm3 Cardiac Enzymes 09/18/18 Range/Units 18:44 Troponin I Cancelled - Imaging Impressions Chest X-Ray 09/18/18 18:41 CONCLUSION: 8.6 cm right lower lobe mass is noted suspicious for malignancy until proven otherwise. A mass was described previously in 2017 in the right lower lobe. Impressions Head CT 09/18/18 18:40 CONCLUSION: 1. Stable appearance of the brain. Marked ventriculomegaly and white matter disease. . Chest X-Ray 09/18/18 18:41 CONCLUSION: 8.6 cm right lower lobe mass is noted suspicious for malignancy until proven otherwise. A mass was described previously in 2017 in the right lower lobe. Chest CTA 09/18/18 19:26 CONCLUSION: 1. There is no evidence for pulmonary embolism. 2. Severe emphysema. 3. There is a large soft tissue mass in the right lower lobe suspicious for malignancy until proven otherwise. Exam Vital signs: Vital Signs 09/18/18 18:27 09/18/18 18:35 09/18/18 18:46 Temperature 101.9 F H Pulse Rate 112 H 106 H Respiratory Rate 32 H 17 Blood Pressure 120/57 L 114/61 Pulse Oximetry 100 100 100 09/18/18 18:56 Temperature Pulse Rate Respiratory Rate 20 Blood Pressure Pulse Oximetry 100 Intake & Output 09/18/18 09/18/18 09/19/18 06:59 18:59 06:59 Intake Total 100 / 100 Balance 100 / 100 Weight 68.039 kg Intake: IV 100 / 100 Zosyn 4.5 GM Premix 4.5 gm In 100 / 100 100 ml @ 200 mls/hr IV.SIG ONCE JORGE Rx#:[id number] - Constitutional moderate distress, severe distress - Routine HEENT Exam Head: Present: normocephalic, atraumatic Eye: Present: PERRL ENT: Present: mucous membranes moist - Routine Neck Exam Present: supple, full ROM. Absent: JVD, carotid bruit - Routine Respiratory Exam Present: patient mechanically ventilated. Absent: wheezes, crackles - Routine Cardiovascular Exam Present: RRR, S1, S2 - Routine Abdominal Exam Present: soft, normoactive bowel sounds - Routine Extremities Exam Absent: cyanosis, clubbing Comments: Status post left BKA - Routine Skin Exam Present: intact. Absent: cyanosis, erythema, rash - Routine Neurological Exam Present: altered mental status Septic Shock Reassessment Septic shock perfusion: reassessment completed Caprini VTE Risk Assessment Caprini VTE Risk Assessment: Moderate/High Risk (score >= 2) Caprini Risk Assessment Model: Point Value = 1 Point Value = 2 Point Value = 3 Point Value = 5 Age 41-60 Minor surgery BMI > 25 kg/m2 Swollen legs Varicose veins or History of unexplained or recurrent spontaneous Oral contraceptives or hormone replacement Sepsis (< 1 month) Serious lung disease, including pneumonia (< 1 month) Abnormal pulmonary function Acute myocardial infarction Congestive heart failure (< 1 month) History of inflammatory bowel disease Medical patient at bed rest Age 61-74 Arthroscopic surgery Major open surgery (> 45 min) Laparoscopic surgery (> 45 min) Malignancy Confined to bed (> 72 hours) Immobilizing plaster cast Central venous access Age >= 75 History of VTE Family history of VTE Factor V Leiden Prothrombin [id number] Lupus anticoagulant Anticardiolipin antibodies Elevated serum homocysteine Heparin-induced thrombocytopenia Other congenital or acquired thrombophilia Stroke (< 1 month) Elective arthroplasty Hip, pelvis, or leg fracture Acute spinal cord injury (< 1 month) Prophylaxis Regimen: Total Risk Factor Score Risk Level Prophylaxis Regimen 0-1 Low Early ambulation 2 Moderate Order ONE of the following: *Sequential Compression Device (SCD) *Heparin 5000 units SQ BID 3-4 Higher Order ONE of the following medications: *Heparin 5000 units SQ TID *Enoxaparin/Lovenox 40 mg SQ daily (WT < 150 kg, CrCl > 30 mL/min) *Enoxaparin/Lovenox 30 mg SQ daily (WT < 150 kg, CrCl > 10-29 mL/min) *Enoxaparin/Lovenox 30 mg SQ BID (WT < 150 kg, CrCl > 30 mL/min) AND/OR *Sequential Compression Device (SCD) 5 or more Highest Order ONE of the following medications: *Heparin 5000 units SQ TID (Preferred with Epidurals) *Enoxaparin/Lovenox 40 mg SQ daily (WT < 150 kg, CrCl > 30 mL/min) *Enoxaparin/Lovenox 30 mg SQ daily (WT < 150 kg, CrCl > 10-29 mL/min) *Enoxaparin/Lovenox 30 mg SQ BID (WT < 150 kg, CrCl > 30 mL/min) AND *Sequential Compression Device (SCD) Assessment and Plan - Assessment and Plan Plan: Respiratory failure -Intubated for an airway protection -No weaning until neurologically improved -DuoNeb scheduled and as needed -Vent bundle Pneumonia -We will treat as a hospital-acquired -Broad-spectrum antibiotic -De-escalate cultures and sensitive Lung mass -Palliative care consultation -Most likely malignancy -Patient was on home hospice before Diabetes -Glucerna tube feeds -Insulin sliding scale HTN -Home medications on hold due to possible sepsis -Resume when indicated DVT GI prophylaxis -Teds SCDs -Subcu heparin -Pepcid 35 minutes of critical care
[2018-09-18 19:55] LABS: ABG Base Excess 5.2 mmol/L (-2-2); ABG PCO2 57 mmHg (38-42); ABG PO2 126 mmHg (61-120)
[2018-09-18] MEDS: Heparin - SQ 10,000 UNITS/ML Vial SQ SCH (19:55)
[2018-09-18 19:57] LABS: Troponin I 0.12 ng/mL (0.02-0.05)
[2018-09-18] MEDS: Sod Chloride 0.9% Inj 1,000 ML IV.CONT SCH (19:58)
[2018-09-18] MEDS ORDERED: Vancomycin Inj 1,000 MG in Sodium Chlor 0.9% Inj 250 ML IV.SIG ONE (20:00)
[2018-09-18] MEDS ORDERED: RASS Change Order OTHER ONE (20:00)
[2018-09-18 21:05] LABS: Bacteria,Urine Moderate /hpf; Bilirubin,Urine Negative (Negative); Color,Urine Yellow (Yellw/Straw); Glucose,Urine (UA) Negative (Negative); Leukocyte Esterase,Urine Moderate (Negative); Mucus,Urine Many /lpf (Occasional); Nitrite,Urine Negative (Negative); Specific Gravity,Urine 1.024 (1.002-1.035); Squamous Epithelial Cell,Urine 4 /hpf (0-5); Triple Phosphate Crystal,Urine Many /hpf
[2018-09-18 21:07] LABS: Clarity,Urine Cloudy (Clear)
[2018-09-18] MEDS: Famotidine PF Inj 20 MG/2 ML Vial IV.PUSH SCH (21:35)
--- NOTE | 2018-09-18 22:13 | CT ---
EXAM DATE: 09/18/2018 10:02 PM EST AGE/SEX: 68 years / Female INDICATIONS: Low oxygen saturation; rule out pulmonary emboli. CLINICAL DATA: This is the patient's initial encounter. Patient reports that signs and symptoms have been present for 1 day and indicates a pain score of Nonresponsive. MEDICAL/SURGICAL HISTORY: None. None. RADIATION DOSE: 10.27 CTDI (mGy) COMPARISON: [facility] [place], CHEST 1V SINGLE AP, 09/18/2018. . TECHNIQUE: Volumetric scanning was performed using a multi-row detector CT scanner during bolus infu shelton of 73 ml Omnipaque 350 (iohexol) nonionic water-soluble contrast as a single exam dose. The kyle a was post processed with a variety of visualization algorithms including full volume maximum intensi ty projection and sliding thin slab reformation. Using automated exposure control and adjustment of the mA and/or kV according to patient size, radiation dose was kept as low as reasonably achievable t o obtain optimal diagnostic quality images. DICOM format image data is available electronically for review and comparison. FINDINGS: There is no evidence for pulmonary embolism. NG tube terminates in the stomach. A percutaneous gastro stomy tube is also seen. There is right hilar adenopathy with mildly prominent right hilar lymph node s identified. An endotracheal tube is present. There are severe emphysematous changes identified. The re are mild fibrotic changes at the bases. There is a large soft tissue mass seen in the right lower lobe. Measures 7.8 x 5.3 cm in transverse and AP dimension. CONCLUSION: 1. There is no evidence for pulmonary embolism. 2. Severe emphysema. 3. There is a large soft tissue mass in the right lower lobe suspicious for malignancy until proven otherwise. Electronically signed by: Inocente Tripathi MD Board Certified Radiologist 09/18/2018 10:11 PM EST
--- NOTE | 2018-09-18 22:14 | CT ---
EXAM DATE: 09/18/2018 9:56 PM EST AGE/SEX: 68 years / Female INDICATIONS: Altered mental status. CLINICAL DATA: This is the patient's initial encounter. Patient reports that signs and symptoms have been present for 1 day and indicates a pain score of Nonresponsive. MEDICAL/SURGICAL HISTORY: None. None. RADIATION DOSE: 56.35 CTDI (mGy) [place] [facility] [place]. . TECHNIQUE: CT of the head without contrast. Using automated exposure control and adjustment of the mA and/or kV according to patient size, radiation dose was kept as low as reasonably achievable to ob tain optimal diagnostic quality images. DICOM format image data is available electronically for revi ew and comparison. FINDINGS: There remains marked ventriculomegaly, not dissimilar 2 2014 MRI. The degree of ventricular dilatatio n is out of proportion to the degree of sulcal prominence, as before. There is confluent hypodensity in the bilateral subcortical white matter, centrum semiovale and periventricular white matter. There are no signs of intracranial hemorrhage, mass or infarction. There are secretions in the nasopharynx. CONCLUSION: 1. Stable appearance of the brain. Marked ventriculomegaly and white matter disease. . Electronically signed by: Inocente Tripathi MD Board Certified Radiologist 09/18/2018 10:13 PM EST
[2018-09-18] MEDS: Senna/Docusate Sodium 8.6/50 MG Tablet PO SCH (22:41)
[2018-09-18] MEDS ORDERED: Sod Chloride 0.9% Inj 3,000 ML IV.SIG SCH (23:15)
[2018-09-18] MEDS ORDERED: Morphine Inj 4 MG/ML Vial IV.PUSH PRN (23:30)
[2018-09-19] MEDS: Oral Hygiene Kit OROPHARYNG SCH ×5 (01:39→23:50)
[2018-09-19] MEDS: Chlorhexidine 0.12% Oral Kit 15 ML UDC OROPHARYNG SCH ×3 (01:39→20:20)
[2018-09-19] MEDS: Piperacil/Tazo 4.5 GM Premix 4.5 GM/100 ML BAG IV.SIG SCH ×4 (02:42→18:00)
[2018-09-19] MEDS: Sod Chloride 0.9% Inj 1,000 ML IV.CONT SCH ×2 (02:43→07:35)
[2018-09-19] MEDS ORDERED: Chlorhexidine Gluconate 2% 1 Pack (2 Cloths) TOPICAL PRN (04:00)
[2018-09-19 04:26] LABS: Baso % (Auto) 0.5 % (0.0-2.0); Eos # (Auto) 0.2 th/mm3 (0.0-0.4); Eos % (Auto) 2.3 % (0.0-4.0); Hematocrit 28.4 % (35.0-46.0); Hemoglobin 8.2 gm/dL (11.6-15.3); Lymph # (Auto) 1.1 th/mm3 (1.0-4.8); Lymph % (Auto) 12.9 % (9.0-44.0); Mean Corpuscular Hemoglobin 22.8 pg (27.0-34.0); Mean Corpuscular Volume 78.6 fL (80.0-100.0); Mono # (Auto) 0.2 th/mm3 (0.0-0.9); Mono % (Auto) 2.8 % (0.0-8.0); Neut # (Auto) 6.7 th/mm3 (1.8-7.7); Neut % (Auto) 81.5 % (16.0-70.0); Platelet Count 292 th/mm3 (150-450); Red Blood Count 3.61 mil/mm3 (4.00-5.30); Red Cell Distribution Width 18.1 % (11.6-17.2); White Blood Count 8.2 th/mm3 (4.0-11.0)
[2018-09-19 04:29] LABS: Activated Partial Thrombo Time 21.7 sec (23.4-31.7); Prothrombin Time 10.2 sec (9.8-11.6)
[2018-09-19] MEDS: Chlorhexidine Gluconate 2% 1 Pack (2 Cloths) TOPICAL SCH (04:39)
[2018-09-19] MEDS: Heparin - SQ 10,000 UNITS/ML Vial SQ SCH ×3 (05:09→20:18)
[2018-09-19 05:14] LABS: Alanine Aminotransferase 24 U/L (10-53); Alkaline Phosphatase 91 U/L (45-117); Anion Gap 10 meq/L (5-15); Aspartate Aminotransferase 37 U/L (15-37); Blood Urea Nitrogen 45 mg/dL (7-18); Calcium 7.6 mg/dL (8.5-10.1); Carbon Dioxide 26.3 meq/L (21.0-32.0); Chloride 126 meq/L (98-107); Glomerular Filtration Rate 72 mL/min (>89); Glucose,Random 123 mg/dL (74-106); Magnesium 2.9 mg/dL (1.5-2.5); Phosphorus 1.6 mg/dL (2.5-4.9); Potassium 3.1 meq/L (3.5-5.1); Total Protein 7.5 g/dL (6.4-8.2)
[2018-09-19 05:19] LABS: Sodium 162 meq/L (136-145)
[2018-09-19] MEDS ORDERED: Potassium Chlor 40 mEq Premix 40 MEQ/100 ML PIGGYBACK IV.SIG PRN ×2 (07:49)
[2018-09-19] MEDS ORDERED: Magnesium Oxide 400 MG Tablet PO PRN (07:49)
[2018-09-19] MEDS ORDERED: Magnesium Sulfate Inj 4 GM in Sodium Chlor 0.9% Inj 92 ML IV.SIG PRN (07:49)
[2018-09-19] MEDS ORDERED: Sodium Phosphate Inj 30 MMOL in Sodium Chlor 0.9% Inj 250 ML IV.SIG PRN (07:49)
[2018-09-19] MEDS ORDERED: Potassium Phosphate Inj 30 MMOL in Sodium Chlor 0.9% Inj 250 ML IV.SIG PRN (07:49)
[2018-09-19] MEDS ORDERED: Potassium Chloride Liq 20 MEQ/15 ML UDC PO PRN (07:49)
[2018-09-19] MEDS ORDERED: Magnesium Sulfate Inj 2 GM in Sodium Chlor 0.9% Inj 96 ML IV.SIG PRN (07:49)
[2018-09-19] MEDS ORDERED: Potassium Phosphate 500 MG Soluble Tablet PO PRN (07:49)
[2018-09-19] MEDS ORDERED: Dextrose 50% in Water 50 ML Vial IV.PUSH PRN (08:13)
--- NOTE | 2018-09-19 08:13 | P.PNCC ---
Subjective Subjective Remarks/Hospital Course: 09/18: 68-year-old female past medical history of stroke, left BKA, who was on home hospice until just prior to arrival, presents for an evaluation of fever and altered mental status. According to EMS the patient had not required oxygen until beginning of this week when she had gradual increased demand of her oxygen. End-tidal CO2 prior to arrival was 6. Initial room nasal cannula saturation was 91, she was placed on nonrebreather position of comfort and transfer to emergency department. EMS related that the had elected to revoke the patient's DNR and hospice care prior to transferring her to the hospital. The patient apparently is normally a GCS of 14, apparently she does take some thickened food p.o. department the patient was severely altered with GCS of 6 on arrival [id number] and was intubated by ED attending for an airway protection. 09/19: Remains sedated, orally intubated on mechanical ventilation. CT chest showed right lower lobe lung mass suspicious for malignancy. Patient has a PEG tube following previous stroke. Objective Vital Signs / I&O: Vital Signs 09/18/18 18:27 09/18/18 18:35 09/18/18 18:46 Temperature 101.9 F H Pulse Rate 112 H 106 H Respiratory Rate 32 H 17 Blood Pressure 120/57 L 114/61 Pulse Oximetry 100 100 100 09/18/18 18:56 09/18/18 19:39 09/18/18 20:00 Temperature 100.2 F H Pulse Rate 76 Respiratory Rate 20 20 20 Blood Pressure 105/56 L Pulse Oximetry 100 100 100 09/18/18 21:12 09/18/18 21:55 09/18/18 22:08 Temperature 100.8 F H 101.3 F H Pulse Rate 90 99 H 96 H Respiratory Rate 20 20 25 H Blood Pressure 104/53 L 101/55 L Pulse Oximetry 100 100 09/18/18 22:21 09/18/18 22:25 09/18/18 22:30 Temperature 101.1 F H 101.1 F H 100.9 F H Pulse Rate 99 H 100 H 99 H Respiratory Rate 21 20 11 L Blood Pressure 89/52 L 91/50 L 92/53 L Pulse Oximetry 100 100 100 09/18/18 22:45 09/18/18 23:00 09/18/18 23:15 Temperature 100.9 F H 100.8 F H 100.6 F H Pulse Rate 100 H 99 H 97 H Respiratory Rate 15 20 9 L Blood Pressure 92/53 L 94/54 L 100/58 L Pulse Oximetry 100 100 100 09/18/18 23:30 09/18/18 23:45 09/19/18 00:00 Temperature 100.2 F H 99.9 F H 99.7 F H Pulse Rate 91 H 87 99 H Respiratory Rate 4 L 17 20 Blood Pressure 105/59 L 122/60 121/61 Pulse Oximetry 100 100 100 09/19/18 00:07 09/19/18 00:15 09/19/18 01:00 Temperature 99.7 F H 99.7 F H Pulse Rate 85 87 Respiratory Rate 20 20 0 L Blood Pressure 131/61 132/60 Pulse Oximetry 100 100 100 09/19/18 02:00 09/19/18 03:00 09/19/18 03:54 Temperature 99.7 F H 99.3 F Pulse Rate 85 87 Respiratory Rate 0 L 0 L 20 Blood Pressure 124/58 L 145/66 H Pulse Oximetry 100 100 100 09/19/18 04:00 09/19/18 05:00 09/19/18 06:00 Temperature 99.3 F 99.3 F 99.1 F Pulse Rate 83 83 83 Respiratory Rate 0 L 0 L 14 Blood Pressure 134/63 149/67 H 122/61 Pulse Oximetry 100 100 100 09/19/18 07:00 Temperature 99.3 F Pulse Rate 84 Respiratory Rate 20 Blood Pressure 112/57 L Pulse Oximetry 100 Intake & Output 09/18/18 09/19/18 09/19/18 18:59 06:59 18:59 Intake Total 2450 / 2450 50 / 50 Output Total 500 / 500 Balance 1949 / 1949 50 / 50 Weight 68.039 kg 61.1 kg Intake: IV 2450 / 2450 50 / 50 NS Inj 1,000 ML @ 154 mls/hr IV 1000 / 1000 50 / 50 .CONT .Q6H30M JORGE Rx#:[id number] Zosyn 4.5 GM Premix 4.5 gm In 200 / 200 100 ml @ 200 mls/hr IV.SIG Q6H JORGE Rx#:[id number] NS Inj 1,000 ML @ 2000 mls/hr 1000 / 1000 IV.SIG Q30M JORGE Rx#:[id number] Vancomycin Inj 1,000 MG In NS 250 / 250 Inj 250 ML @ 250 mls/hr IV.SIG ONCE ONE Rx#:[id number] Output: Urine Amount (Catheter) 500 / 500 Indwelling Temp Sensing 500 / 500 Catheter Other: Date of Last Bowel Movement 09/18/18 # Bowel Movements 1 Weight On Admission 61.1 kg Result Diagrams: 09/19/18 04:06 09/19/18 04:06 Imaging: Head CT 09/18/18 18:40 CONCLUSION: 1. Stable appearance of the brain. Marked ventriculomegaly and white matter disease. . Chest X-Ray 09/18/18 18:41 CONCLUSION: 8.6 cm right lower lobe mass is noted suspicious for malignancy until proven otherwise. A mass was described previously in 2017 in the right lower lobe. Chest CTA 09/18/18 19:26 CONCLUSION: 1. There is no evidence for pulmonary embolism. 2. Severe emphysema. 3. There is a large soft tissue mass in the right lower lobe suspicious for malignancy until proven otherwise. Objective Remarks: HEENT/ Neuro: Sedated, orally intubated, Pallor present, no icterus, tongue/ mucosa moist Neck: No JVD Chest/Pulm: on mech vent, air entry decreased over right lower lung field, scattered rhonchi, no wheezing or crackles CVS: S1-S2 regular, no murmur GI/abdomen: soft, nontender, bowel sounds sluggish Extremities: warm bilaterally, , status post left BKA , no edema Assessment and Plan - Assessment and Plan Plan: Acute respiratory failure on mechanical ventilation -Intubated for an airway protection -No weaning until neurologically improved -DuoNeb scheduled and as needed -Vent bundle Pneumonia Suspected sepsis -We will treat as a hospital-acquired pneumonia -Broad-spectrum antibiotic -Follow-up cultures Lung mass -Pulmonary consult for further evaluation of lung mass -Palliative care consultation -Most likely malignancy -Patient was on home hospice before Diabetes -Glucerna tube feeds -Insulin sliding scale Hypernatremia Hypokalemia -Change IV fluid to half NS, start free water via PEG tube. -Strict intake output, monitor and replete electrolytes, follow BUN/creatinine HTN -Home medications on hold due to possible sepsis -Resume when indicated DVT GI prophylaxis -Teds SCDs -Subcu heparin -Pepcid 35 minutes of critical care excluding procedures
[2018-09-19] MEDS: Famotidine PF Inj 20 MG/2 ML Vial IV.PUSH SCH ×2 (08:36→20:20)
[2018-09-19] MEDS: Senna/Docusate Sodium 8.6/50 MG Tablet PO SCH ×2 (08:36→20:20)
[2018-09-19] MEDS: Sodium Chloride 0.45 % Inj 1,000 ML IV.CONT SCH ×2 (08:36→17:00)
[2018-09-19] MEDS: Potassium Phosphate 500 MG Soluble Tablet PO PRN (08:36)
[2018-09-19] MEDS: Potassium Chlor 20 mEq Premix 20 MEQ/100 ML PIGGYBACK IV.SIG PRN ×2 (08:36→10:20)
[2018-09-19] MEDS: MethylPREDNISolone Sod Succinate Inj 40 MG/ML Vial IV.PUSH SCH ×2 (10:20→20:20)
[2018-09-19 11:13] LABS: ABG Base Excess -0.3 mmol/L (-2-2); ABG PCO2 29 mmHg (38-42); ABG PO2 134 mmHG (61-120)
[2018-09-19] MEDS: Insulin NovoLIN Regular Correctional Sugar Inj SQ SCH ×3 (11:28→23:50)
--- NOTE | 2018-09-19 12:04 | MB ---
cc: Ama Macias MD DATE: 09/19/2018 HISTORY OF PRESENT ILLNESS: The patient is a 68-year-old female with a past medical history of CVA, hypertension, GERD, and left BKA, who was on home hospice until just prior to arrival presented to [facility] ED with fever and altered mental status. In addition, the patient was in respiratory distress and was initially placed on a nonrebreather. The patient's elected to revoke DNR on hospice care prior to transfer to the hospital. Due to worsening respiratory status and mental status, she was intubated by the ED physician and placed on full mechanical ventilation. ABG post-intubation last night showed a pH of 7.35, CO2 of 57, pO2 of 126, bicarbonate 31, and saturation of 97%. Initial chest x-ray showed 8.6 cm right lower lobe mass suspicious for malignancy. A CTA of the chest was subsequently performed, which showed no evidence of pulmonary embolism; however, it showed severe emphysema and large soft tissue mass seen in the right lower lobe measuring 7.8 x 5.3 cm, suspicious for malignancy. The patient was started on broad spectrum antibiotics. She is currently sedated and intubated. Most of the history was obtained from reviewing medical records. PAST MEDICAL HISTORY: Significant for hypertension, CVA, GERD, diabetes mellitus, and hemiplegia. PAST SURGICAL HISTORY: Previous PEG tube placement, previous left above-knee amputation. ALLERGIES: UNKNOWN. FAMILY HISTORY: Noncontributing to present illness. SOCIAL HISTORY: Unknown. CURRENT MEDICATIONS: Include: 1. Vancomycin 2. Zosyn. 3. Pepcid. 4. DuoNeb. REVIEW OF SYSTEMS: As per HPI. The rest of review of systems unobtainable. PHYSICAL EXAMINATION: GENERAL: A 68-year-old female lying in bed, intubated and sedated. VITAL SIGNS: Temperature 99.3, T-max 101.9, pulse of 83, respiratory rate of 18, blood pressure 106/59, saturation 100%. Vent setting: PRVC rate of 20, tidal volume 500, I time 1.0, PEEP of 5, FiO2 of 50%. HEENT: Atraumatic, normocephalic. Pupils are equal, round, reactive to light and accommodation. Extraocular muscles intact. Conjunctivae pink. Nonicteric sclerae. Oral mucosa within normal. NECK: Supple. No JVD, adenopathy or thyromegaly. Trachea in the midline, orally intubated. CARDIOVASCULAR: Regular rate and rhythm. Normal S1, S2. No murmurs, rubs or gallops noted. PULMONARY: Bilateral air entry. No wheezing. ABDOMEN: Soft, obese, nontender, nondistended, positive bowel sounds. EXTREMITIES: No cyanosis or clubbing. Left AKA noted. NEUROLOGIC: Intubated and sedated. LABORATORY DATA: WBC 8.2, hemoglobin 8.2, hematocrit 28, platelet count of 292. Sodium 162, potassium 3.1, chloride 126, BUN 45, creatinine 0.93, glucose of 123, and lactic acid 4.1. RADIOGRAPHIC STUDIES: CTA of the chest showed no evidence of pulmonary embolism, right lower lobe lung mass. Soft tissue density measuring 7.8 x 5.3 cm. IMPRESSION: 1. Ventilator-dependent respiratory failure. 2. Likely chronic obstructive pulmonary disease exacerbation. 3. Right lower lobe lung mass suspicious for bronchogenic carcinoma. 4. Hypernatremia. 5. Lactic acidemia. 6. Dehydration. 7. Hypertension. 8. History of cerebrovascular accident. 9. History of gastroesophageal reflux disease. RECOMMENDATIONS: 1. Continue with Diprivan infusion for sedation and daily sedation vacation as tolerated. 2. A CT scan of the brain obtained in the ED showed no acute intracranial findings. Ventriculomegaly and white matter disease noted. 3. Continued vent support until saturations are above 92%. 4. Continue Bronchodilators in the form of DuoNeb every 4 hours plus every 2 hours p.r.n. for shortness of breath. We will start Solu-Medrol 40 mg IV every 12 hours. Check ABG. Continue with antibiotics. She is currently on vancomycin and Zosyn. Monitor for signs of infection, which include fever and WBC. Followup on blood cultures. We will obtain a sputum culture with Gram stain. 5. Check a chest x-ray in a.m. 6. The patient will likely need CT-guided lung biopsy to rule out malignancy. Once extubated and if the patient and family desires aggressive care. 7. Continue with IV hydration. 8. Gastrointestinal and deep venous thrombosis prophylaxis. The patient is on Pepcid and heparin subcutaneously respectively. 9. Further recommendations will be based on hospital course. MD Claudine Fritz , 09:54 AM , 10:06 AM
--- NOTE | 2018-09-19 13:17 | P.DIET ---
Nutritional Evaluation Type of nutrition evaluation: initial Nutrition consult regarding: Tube Feeding Objective - Diagnosis Fever, AMS - Objective Part of Body Amputated: Left above knee (12%) [place] body weight: 50 kg (adj IBW 44kg, adjBW: 53.6kg) % IBW: 139 Energy Needs - Lower Range (kCal/kg): 28 Energy Needs - Upper Range (kCal/kg): 33 Lower Limit kCal/kg (kCals): 1,501 Upper Limit kCal/kg (kCals): 1,769 Lower Limit Protein Factor (Grams per Kg): 1.2 Upper Limit Protein Factor (Grams per Kg): 1.5 Lower Protein Needs (Protein): 64 Upper Protein Needs (Protein): 80 Dietitian Reviewed in Medical Record: Current diet, Curent medications, Intake & Output, Labs, Medical history, Tube feeding Diet Order: NPO Objective Comments: PMH: stroke, DM, Dysphagia, HTN, Hemiparesis, L AKA, PEG placement Labs include: Na 162, K+ 3.1, Glucose 123, Lactic Acid 4.1, Phosphorus 1.6, Mg 2.9 Meds include: propofol Pt's nutritional needs based on AdjBW of 53.6kg r/t L AKA Assessment Assessment: Pt at nutritional risk r/t need for a TF for nutrition support. Pt admitted with fever, AMS; is now intubated and sedated on propofol. Noted pt was on hospice with a DNR which removed upon admission. Pt's nutritional needs as assessed above taking into account L AKA. To best meet pt's needs, recommend TF Glucerna 1.5 with goal rate of 45ml/hr to provide 1620kcals, 89gms protein and 820mls free water. Propofol adds kcals when running. Noted per nursing chronic pressure injury, pink. Will monitor TF tolerance, clinical course. Recommendations: TF Glucerna 1.5 with goal rate 45ml/hr Dietitian to Monitor: Lab values, Intake & Output, Tube feeding tolerance, Weight change, Wound/skin status, Medical course
[2018-09-19] MEDS: Vancomycin Inj 1,250 MG in Sodium Chlor 0.9% Inj 250 ML IV.SIG SCH (15:56)
[2018-09-19] MEDS: Propofol 1000 mg/100 ml Inj 1,000 MG/100 ML BOTTLE IV.CONT PRN (16:53)
[2018-09-20] MEDS: Piperacil/Tazo 4.5 GM Premix 4.5 GM/100 ML BAG IV.SIG SCH ×4 (00:06→18:07)
[2018-09-20] MEDS: Oral Hygiene Kit OROPHARYNG SCH ×3 (03:01→15:53)
[2018-09-20] MEDS: Chlorhexidine Gluconate 2% 1 Pack (2 Cloths) TOPICAL SCH (03:01)
[2018-09-20] MEDS: Heparin - SQ 10,000 UNITS/ML Vial SQ SCH ×3 (03:01→19:49)
[2018-09-20] MEDS: Sodium Chloride 0.45 % Inj 1,000 ML IV.CONT SCH ×2 (03:23→14:17)
[2018-09-20] MEDS: Propofol 1000 mg/100 ml Inj 1,000 MG/100 ML BOTTLE IV.CONT PRN ×2 (03:24→14:42)
--- NOTE | 2018-09-20 04:32 | XR ---
EXAM DATE: 09/20/2018 4:24 AM EST AGE/SEX: 68 years / Female INDICATIONS: Shortness of breath, possible pulmonary disease. CLINICAL DATA: This is the patient's subsequent encounter. Patient reports that signs and symptoms h ave been present for 2 days and indicates a pain score of Nonresponsive. MEDICAL/SURGICAL HISTORY: Hypertension. Diabetes. None. COMPARISON: [facility] [place], CHEST 1V SINGLE AP, 09/18/2018. . FINDINGS: A single AP view of the chest demonstrates bibasilar consolidations. This is less masslike in nature within the right lung base than on the prior study. The left basilar consolidation is new. No effusio ns. Heart is normal in size. Tip of the endotracheal tube 2 cm from the mila. Nasogastric tube. CONCLUSION: Bibasilar consolidations. The left is new from the prior study. Electronically signed by: Juan Cedeño MD Board Certified Radiologist 09/20/2018 4:31 AM EST
[2018-09-20] MEDS: Insulin NovoLIN Regular Correctional Sugar Inj SQ SCH ×3 (06:04→18:07)
[2018-09-20 07:00] LABS: Baso % (Auto) 0.2 % (0.0-2.0); Hematocrit 28.3 % (35.0-46.0); Hemoglobin 8.1 gm/dL (11.6-15.3); Lymph # (Auto) 0.5 th/mm3 (1.0-4.8); Lymph % (Auto) 6.9 % (9.0-44.0); Mean Corpuscular Hemoglobin 22.5 pg (27.0-34.0); Mean Corpuscular Volume 79.2 fL (80.0-100.0); Mean Platelet Volume 10.4 fL (7.0-11.0); Mono # (Auto) 0.2 th/mm3 (0.0-0.9); Mono % (Auto) 2.9 % (0.0-8.0); Neut # (Auto) 6.8 th/mm3 (1.8-7.7); Platelet Count 251 th/mm3 (150-450); Red Blood Count 3.58 mil/mm3 (4.00-5.30); Red Cell Distribution Width 18.6 % (11.6-17.2); White Blood Count 7.5 th/mm3 (4.0-11.0)
[2018-09-20 07:03] LABS: Mean Corpuscular HGB Conc 28.5 % (32.0-36.0)
[2018-09-20 07:15] LABS: Alanine Aminotransferase 24 U/L (10-53); Albumin 2.1 g/dL (3.4-5.0); Alkaline Phosphatase 90 U/L (45-117); Anion Gap 7 meq/L (5-15); Aspartate Aminotransferase 31 U/L (15-37); Blood Urea Nitrogen 19 mg/dL (7-18); Calcium 8.2 mg/dL (8.5-10.1); Carbon Dioxide 22.7 meq/L (21.0-32.0); Chloride 121 meq/L (98-107); Glomerular Filtration Rate Greater Than 89 mL/min (>89); Glucose,Random 182 mg/dL (74-106); Magnesium 2.6 mg/dL (1.5-2.5); Potassium 3.3 meq/L (3.5-5.1); Sodium 151 meq/L (136-145)
[2018-09-20] MEDS: MethylPREDNISolone Sod Succinate Inj 40 MG/ML Vial IV.PUSH SCH ×2 (08:29→20:03)
[2018-09-20] MEDS: Famotidine PF Inj 20 MG/2 ML Vial IV.PUSH SCH ×2 (08:30→20:03)
[2018-09-20] MEDS: Senna/Docusate Sodium 8.6/50 MG Tablet PO SCH ×2 (08:30→20:03)
[2018-09-20] MEDS: Chlorhexidine 0.12% Oral Kit 15 ML UDC OROPHARYNG SCH ×2 (08:31→19:50)
[2018-09-20] MEDS: Potassium Phosphate 500 MG Soluble Tablet PO PRN ×2 (09:49→16:03)
--- NOTE | 2018-09-20 12:05 | ECG ---
Date Performed: 09/19/2018 Time Performed: 09:31:28 PTAGE: 68 years EKG: Normal Sinus rhythm Diffuse ST T abnormalities consistent with possible subendocardial infarction or central neurologica l event Compared to previous tracing ST T wave changes are now more prominent. Clinical correlation i s needed Abnormal ECG PREVIOUS TRACING : 07/15/2015 12.49 DOCTOR: Kenny Caba Interpretating Date/Time 09/20/2018 12:03:13
[2018-09-20] MEDS: Metoprolol Tartrate 100 MG Tablet G-TUBE SCH ×2 (15:47→20:03)
[2018-09-20] MEDS: Vancomycin Inj 1,250 MG in Sodium Chlor 0.9% Inj 250 ML IV.SIG SCH (15:53)
--- NOTE | 2018-09-20 16:30 | P.PNPL ---
Subjective Interval history: 68 YOAA female who was with Hospice svc, now escended On Vent Daughter at BS Sedated Physical Exam Vital signs: Vital Signs 09/19/18 17:00 09/19/18 17:58 09/19/18 18:00 Temperature 99.3 F 99.3 F Pulse Rate 92 H 80 80 Respiratory Rate 16 16 Blood Pressure 142/65 H 132/61 Pulse Oximetry 100 99 09/19/18 19:00 09/19/18 19:57 09/19/18 20:00 Temperature 99.0 F 99.3 F Pulse Rate 74 80 80 Respiratory Rate 16 16 16 Blood Pressure 133/61 139/65 Pulse Oximetry 100 100 100 09/19/18 21:00 09/19/18 22:00 09/19/18 23:00 Temperature 99.0 F 99.0 F 98.8 F Pulse Rate 96 H 94 H 83 Respiratory Rate 16 16 16 Blood Pressure 149/66 H 162/69 H 151/67 H Pulse Oximetry 98 100 100 09/19/18 23:58 09/19/18 23:59 09/20/18 00:00 Temperature 98.8 F Pulse Rate 86 83 Respiratory Rate 16 16 16 Blood Pressure 158/70 H Pulse Oximetry 100 100 09/20/18 01:00 09/20/18 02:00 09/20/18 03:00 Temperature 98.4 F 98.2 F 98.2 F Pulse Rate 85 86 90 Respiratory Rate 16 16 16 Blood Pressure 152/67 H 150/66 H 150/66 H Pulse Oximetry 100 100 100 09/20/18 04:00 09/20/18 04:59 09/20/18 06:00 Temperature 98.1 F Pulse Rate 95 H 88 93 H Respiratory Rate 16 16 Blood Pressure 163/72 H Pulse Oximetry 100 100 09/20/18 07:00 09/20/18 07:32 09/20/18 07:58 Temperature 97.9 F Pulse Rate 87 82 Respiratory Rate 16 16 16 Blood Pressure 159/71 H Pulse Oximetry 100 100 09/20/18 08:00 09/20/18 09:00 09/20/18 10:00 Temperature 97.9 F 97.7 F 97.9 F Pulse Rate 80 86 93 H Respiratory Rate 16 16 16 Blood Pressure 165/72 H 147/66 H Pulse Oximetry 100 99 100 09/20/18 10:01 09/20/18 10:30 09/20/18 11:00 Temperature 97.9 F 98.1 F 98.1 F Pulse Rate 92 H 78 76 Respiratory Rate 16 16 16 Blood Pressure 188/80 H 180/76 H 172/74 H Pulse Oximetry 100 100 100 09/20/18 11:30 09/20/18 11:33 09/20/18 11:47 Temperature 97.9 F Pulse Rate 77 84 Respiratory Rate 16 16 16 Blood Pressure 172/73 H Pulse Oximetry 99 100 09/20/18 12:00 09/20/18 12:30 Temperature 97.9 F 98.2 F Pulse Rate 76 79 Respiratory Rate 16 13 Blood Pressure 177/76 H 168/75 H Pulse Oximetry 100 100 Intake & Output 09/19/18 09/20/18 09/20/18 18:59 06:59 18:59 Intake Total 2212.5 / 2212.5 1370 / 1370 1100 / 1100 Output Total 1175 / 1175 2049 / 2049 Balance 1037.5 / 1037.5 -680 / -680 1100 / 1100 Weight 61 kg Intake: IV 1912.5 / 1912.5 1300 / 1300 1100 / 1100 Diprivan 1000 mg/100 ml Inj 1, 100 / 100 100 / 100 100 / 100 000 mg In 100 ml @ 5 MCG/KG/MIN 2.041 mls/hr IV.CONT TITRATE PRN Rx#:[id number] NS Inj 1,000 ML @ 154 mls/hr IV 50 / 50 .CONT .Q6H30M JORGE Rx#:[id number] 1/2 Normal Saline Inj 1,000 ML 1000 / 1000 1000 / 1000 1000 / 1000 @ 100 mls/hr IV.CONT .Q10H JORGE Rx#:[id number] Zosyn 4.5 GM Premix 4.5 gm In 300 / 300 200 / 200 100 ml @ 200 mls/hr IV.SIG Q6H JORGE Rx#:[id number] KCl 20 mEq Premix Inj 20 meq In 200 / 200 100 ml @ 50 mls/hr IV.SIG Q2H PRN Rx#:[id number] Vancomycin Inj 1,250 MG In NS 262.5 / 262.5 Inj 250 ML @ 250 mls/hr IV.SIG Q24H JORGE Rx#:[id number] Tube Feeding 70 / 70 Water Bolus Amount 300 / 300 Output: Stool 200 / 200 500 / 500 Urine Amount (Catheter) 775 / 775 1550 / 1550 Indwelling Temp Sensing 775 / 775 1550 / 1550 Catheter Gastric Drainage 200 / 200 Orogastric Tube 200 / 200 Other: Date of Last Bowel Movement 09/18/18 09/19/18 09/20/18 # Bowel Movements 3 GENERAL: Elderly AA on Vent SKIN: Warm and dry. HEAD: Normocephalic. EYES: No scleral icterus. No injection or drainage. NECK: Supple, trachea midline. No JVD or lymphadenopathy. CARDIOVASCULAR: Regular rate and rhythm without murmurs, gallops, or rubs. RESPIRATORY: Breath sounds equal bilaterally. No accessory muscle use. GASTROINTESTINAL: Abdomen soft, non-tender, nondistended. MUSCULOSKELETAL: No cyanosis, or edema. BACK: Nontender without obvious deformity. No CVA tenderness. - Urinary Catheter Management Indwelling Temp Sensing Catheter Cath placed during this visit: yes Reason for continuing: Severe pressure ulcer/wound Insertion date: 09/18/18 Insertion time: 18:50 Assessment and Plan - Plan IMPRESSION: VDRF large Rt lung mass COPD HTN H/O CVA PLAN: Cont vent support Aerosol nebs IV Solumedrol Cont Abx DW Daughter at BS She will dw her step father to decide if they want to proceed with lung bx.
--- NOTE | 2018-09-20 16:39 | P.PNCC ---
Subjective Subjective Remarks/Hospital Course: 09/18: 68-year-old female past medical history of stroke, left BKA, who was on home hospice until just prior to arrival, presents for an evaluation of fever and altered mental status. According to EMS the patient had not required oxygen until beginning of this week when she had gradual increased demand of her oxygen. End-tidal CO2 prior to arrival was 6. Initial room nasal cannula saturation was 91, she was placed on nonrebreather position of comfort and transfer to emergency department. EMS related that the had elected to revoke the patient's DNR and hospice care prior to transferring her to the hospital. The patient apparently is normally a GCS of 14, apparently she does take some thickened food p.o. department the patient was severely altered with GCS of 6 on arrival [id number] and was intubated by ED attending for an airway protection. 09/19: Remains sedated, orally intubated on mechanical ventilation. CT chest showed right lower lobe lung mass suspicious for malignancy. Patient has a PEG tube following previous stroke. 09/20: Remains sedated, orally intubated on mechanical ventilation. Started on tube feeds. Objective Vital Signs / I&O: Vital Signs 09/19/18 17:00 09/19/18 17:58 09/19/18 18:00 Temperature 99.3 F 99.3 F Pulse Rate 92 H 80 80 Respiratory Rate 16 16 Blood Pressure 142/65 H 132/61 Pulse Oximetry 100 99 09/19/18 19:00 09/19/18 19:57 09/19/18 20:00 Temperature 99.0 F 99.3 F Pulse Rate 74 80 80 Respiratory Rate 16 16 16 Blood Pressure 133/61 139/65 Pulse Oximetry 100 100 100 09/19/18 21:00 09/19/18 22:00 09/19/18 23:00 Temperature 99.0 F 99.0 F 98.8 F Pulse Rate 96 H 94 H 83 Respiratory Rate 16 16 16 Blood Pressure 149/66 H 162/69 H 151/67 H Pulse Oximetry 98 100 100 09/19/18 23:58 09/19/18 23:59 09/20/18 00:00 Temperature 98.8 F Pulse Rate 86 83 Respiratory Rate 16 16 16 Blood Pressure 158/70 H Pulse Oximetry 100 100 09/20/18 01:00 09/20/18 02:00 09/20/18 03:00 Temperature 98.4 F 98.2 F 98.2 F Pulse Rate 85 86 90 Respiratory Rate 16 16 16 Blood Pressure 152/67 H 150/66 H 150/66 H Pulse Oximetry 100 100 100 09/20/18 04:00 09/20/18 04:59 09/20/18 06:00 Temperature 98.1 F Pulse Rate 95 H 88 93 H Respiratory Rate 16 16 Blood Pressure 163/72 H Pulse Oximetry 100 100 09/20/18 07:00 09/20/18 07:32 09/20/18 07:58 Temperature 97.9 F Pulse Rate 87 82 Respiratory Rate 16 16 16 Blood Pressure 159/71 H Pulse Oximetry 100 100 09/20/18 08:00 09/20/18 09:00 09/20/18 10:00 Temperature 97.9 F 97.7 F 97.9 F Pulse Rate 80 86 93 H Respiratory Rate 16 16 16 Blood Pressure 165/72 H 147/66 H Pulse Oximetry 100 99 100 09/20/18 10:01 09/20/18 10:30 09/20/18 11:00 Temperature 97.9 F 98.1 F 98.1 F Pulse Rate 92 H 78 76 Respiratory Rate 16 16 16 Blood Pressure 188/80 H 180/76 H 172/74 H Pulse Oximetry 100 100 100 09/20/18 11:30 09/20/18 11:33 09/20/18 11:47 Temperature 97.9 F Pulse Rate 77 84 Respiratory Rate 16 16 16 Blood Pressure 172/73 H Pulse Oximetry 99 100 09/20/18 12:00 09/20/18 12:30 09/20/18 16:29 Temperature 97.9 F 98.2 F Pulse Rate 76 79 Respiratory Rate 16 13 16 Blood Pressure 177/76 H 168/75 H Pulse Oximetry 100 100 100 09/20/18 16:31 Temperature Pulse Rate 69 Respiratory Rate 16 Blood Pressure Pulse Oximetry Intake & Output 09/19/18 09/20/18 09/20/18 18:59 06:59 18:59 Intake Total 2212.5 / 2212.5 1370 / 1370 1100 / 1100 Output Total 1175 / 1175 2049 / 205 Balance 1037.5 / 1037.5 -680 / -680 1100 / 1100 Weight 61 kg Intake: IV 1912.5 / 1912.5 1300 / 1300 1100 / 1100 Diprivan 1000 mg/100 ml Inj 1, 100 / 100 100 / 100 100 / 100 000 mg In 100 ml @ 5 MCG/KG/MIN 2.041 mls/hr IV.CONT TITRATE PRN Rx#:[id number] NS Inj 1,000 ML @ 154 mls/hr IV 50 / 50 .CONT .Q6H30M JORGE Rx#:[id number] 1/2 Normal Saline Inj 1,000 ML 1000 / 1000 1000 / 1000 1000 / 1000 @ 100 mls/hr IV.CONT .Q10H JORGE Rx#:[id number] Zosyn 4.5 GM Premix 4.5 gm In 300 / 300 200 / 200 100 ml @ 200 mls/hr IV.SIG Q6H JORGE Rx#:[id number] KCl 20 mEq Premix Inj 20 meq In 200 / 200 100 ml @ 50 mls/hr IV.SIG Q2H PRN Rx#:[id number] Vancomycin Inj 1,250 MG In NS 262.5 / 262.5 Inj 250 ML @ 250 mls/hr IV.SIG Q24H JORGE Rx#:[id number] Tube Feeding 70 / 70 Water Bolus Amount 300 / 300 Output: Stool 200 / 200 500 / 500 Urine Amount (Catheter) 775 / 775 1550 / 1550 Indwelling Temp Sensing 775 / 775 1550 / 1550 Catheter Gastric Drainage 200 / 200 Orogastric Tube 200 / 200 Other: Date of Last Bowel Movement 09/18/18 09/19/18 09/20/18 # Bowel Movements 3 Result Diagrams: 09/20/18 06:01 09/20/18 06:01 Imaging: Head CT 09/18/18 18:40 CONCLUSION: 1. Stable appearance of the brain. Marked ventriculomegaly and white matter disease. . Chest X-Ray 09/18/18 18:41 CONCLUSION: 8.6 cm right lower lobe mass is noted suspicious for malignancy until proven otherwise. A mass was described previously in 2017 in the right lower lobe. Chest CTA 09/18/18 19:26 CONCLUSION: 1. There is no evidence for pulmonary embolism. 2. Severe emphysema. 3. There is a large soft tissue mass in the right lower lobe suspicious for malignancy until proven otherwise. Chest X-Ray 09/20/18 00:00 CONCLUSION: Bibasilar consolidations. The left is new from the prior study. Objective Remarks: HEENT/ Neuro: Sedated, orally intubated, Pallor present, no icterus, tongue/ mucosa moist Neck: No JVD Chest/Pulm: on mech vent, air entry decreased over right lower lung field, scattered rhonchi, no wheezing or crackles CVS: S1-S2 regular, no murmur GI/abdomen: soft, nontender, bowel sounds sluggish Extremities: warm bilaterally, , status post left BKA , no edema Assessment and Plan - Assessment and Plan Plan: Acute respiratory failure on mechanical ventilation -Intubated for an airway protection -No weaning until neurologically improved -DuoNeb scheduled and as needed -Vent bundle Pneumonia Suspected sepsis -We will treat as a hospital-acquired pneumonia -Broad-spectrum antibiotic -Follow-up cultures Lung mass -Pulmonary consulted for further evaluation of lung mass -Palliative care consultation -Most likely malignancy -Patient was on home hospice before Diabetes -Glucerna tube feeds -Insulin sliding scale Hypernatremia Hypokalemia -Continue half NS, free water via PEG tube. -Strict intake output, monitor and replete electrolytes, follow BUN/creatinine HTN -Home medications on hold due to possible sepsis -Resume when indicated DVT GI prophylaxis -Teds SCDs -Subcu heparin -Pepcid Palliative care consulted to assist with deciding goals of therapy. Patient remains full CODE STATUS at this time. 35 minutes of critical care excluding procedures
--- NOTE | 2018-09-20 16:47 | P.CONPAL ---
Consult Service: Palliative Care Requesting Physician: Dylan Christiansen Reason for Consult: a. To assist with evaluation and management of symptoms including: dyspnea, pain. b. To assist medical decision maker(s) with: better understanding of current medical conditions; weighing benefits/burdens of medical treatment options; making medical treatment decisions. Primary Care Provider: UNKNOWN History of Present Illness History of Present Illness: Mrs. Marrufo is a 68 year old female with past medical history of multiple strokes with residual hemiparesis, dysphagia and inability to communicate, diabetes, hypertension, hypoxia and prior left above the knee amputation. Patient was a resident of [facility]. Patient was transferred from [facility] to [facility] emergency department on via EMS for evaluation of fever, altered mental status and increasing oxygen needs. Patient required oxygen via NRB. reportedly revoked [place] DNR order and requested transfer to hospital. Initial findings: * T 101.9, pulse 112, BP 120/57, RR 32 * WBC 11.2, hemoglobin 9.1, hematocrit 32.2, platelet count 352, neutrophils 72.3% * Sodium 163, potassium 3.4, chloride 129, carbon dioxide 30.7, BUN 47, creatinine 0.68, GFR greater than 89, glucose 115 * Lactic acid 1.2 * Total bilirubin 0.2, AST 18, ALT 17, alkaline phosphatase 74 * Troponin 0.12 * Total protein 6.8, albumin 1.8 * PT 10.2, INR 1.0, APTT 24.9 * Urinalysis: + leukocyte esterase, bacteria, mucus, culture indicated preliminarily positive gram negative rods. * CT head-stable appearance of the brain, market ventriculomegaly and white matter disease. * Chest x-ray-8.6 cm right lower lobe mass suspicious for malignancy, mass described previously in 2017 right lower lobe * Chest CTA-no evidence of pulmonary embolism, severe emphysema, large soft tissue mass in the right lower lobe suspicious for malignancy. * EKG -diffuse ST T abnormalities consistent with possible subendocardial infarction or central neurologic event. [facility] Admitted with respiratory failure, pneumonia, lung mass. On antibiotics. Pulmonology, Dr. Hollis was consulted indicates possible lung biopsy once extubated if family desires aggressive care. Palliative care was consulted to assist with further clarification of goals of medical treatment in this 68-year-old longterm dependent patient who was on hospice prior to admission now intubated on mechanical ventilation in ICU. Spoke with daughter at bedside. According to [place] statutes spouse would be legal healthcare proxy decision-maker, awaiting arrival of spouse to further clarify goals of medical treatment. Palliative care requested nursing staff and daughter call when spouse arrives. Attempted to call spouse at home, no answer. Function/Cognitive Trajectory: Daughter reports patient is non-communicative, bedbound and tube fed at baseline. Though notes indicate she takes some thickened PO. PMFSH - History History Provided By: Medical Record - Medical History Medical History: Medical History (Last Updated 09/18/18 @ 19:02 by Gauri Guerra) Acute respiratory failure CVA (cerebral vascular accident) Diabetes Dysphagia HTN (hypertension) Hemiparesis Hemiplegia Hypoxia - Surgical History Surgical History: Surgical History (Last Updated 09/20/18 @ 16:03 by Jenny Russell) History of left above knee amputation S/P percutaneous endoscopic gastrostomy (PEG) tube placement - Family History Family History: Family History (Last Updated 09/20/18 @ 16:04 by Jenny Russell) Sister Diabetes Sister Hypertension - Social History I have reviewed the patient's Social History: Yes - Tobacco History Second Hand Smoke Exposure: No Tobacco Use In Past 30 Days: No Smoking Status: Former smoker (Quit many years ago, daughter reports pt smoked when daughter was a child.) - Alcohol History How Often Do You Have a Drink Containing Alcohol: Never - Substance Use History Substance History: No History of Abuse, Unable to Obtain - Travel History Recent Travel in the [place] Within the Last 8 Weeks: No Recent Travel Out of the Country Within the Last 8 Weeks: No - Immunization History Tetanus Immunization: Unsure Medications and Allergies Active Medications: Active Medications Acetaminophen (Tylenol) 650 mg PO Q6H PRN PRN Reason: PAIN 1-10 AND/OR FEVER >101F Al Hydroxide/Mg Hydroxide (Milk Of Magnesia Liq) 30 ml PO Q12H PRN PRN Reason: Mild Constipation Albuterol (Duoneb Neb (Prn)) 1 ampul NEB Q2HR NEB PRN PRN Reason: WHEEZING Albuterol (Duoneb Neb (Eufemia)) 1 ampul NEB Q4HR NEB EUFEMIA Last Admin: 09/20/18 11:32 Dose: 1 ampul Bisacodyl (Dulcolax Supp) 10 mg RECTAL DAILY PRN PRN Reason: SEVERE CONSITIPATION Chlorhexidine Gluconate (Peridex 0.12% Oral Kit) 15 ml OROPHARYNG BID@0800, 2000 [facility] Last Admin: 09/20/18 08:31 Dose: 15 ml Chlorhexidine Gluconate (Chlorhexidine 2% Cloth) 3 pack TOPICAL DAILY@0400 EUFEMIA Stop: 09/24/18 03:59 Last Admin: 09/20/18 03:01 Dose: 3 pack Chlorhexidine Gluconate (Chlorhexidine 2% Cloth) 3 pack TOPICAL DAILY@0400 PRN PRN Reason: Extra cloth needed Stop: 09/24/18 03:59 Dextrose (D50w Vial) 50 ml IV.PUSH UNSCH PRN PRN Reason: PER HYPOGLYCEMIA PROTOCOL Famotidine (Pepcid Pf Inj) 20 mg IV.PUSH Q12HR [facility] Last Admin: 09/20/18 08:30 Dose: 20 mg Glucagon (Glucagon Inj) 1 mg OTHER PRN PRN PRN Reason: for Hypoglycemia Protocol Heparin Sodium (Porcine) (Heparin Inj) 5,000 units SQ Q8H [facility] Last Admin: 09/20/18 12:24 Dose: 5,000 units Propofol (Diprivan 1000 Mg/100 Ml Inj) 1,000 mg in 100 mls @ 2.041 mls/hr IV.CONT TITRATE PRN; Protocol PRN Reason: Per Protocol Last Admin: 09/20/18 14:42 Dose: 20 mcg/kg/min, 8.17 mls/hr Piperacillin/Tazobactam/Dextrose (Zosyn 4.5 Gm Premix) 4.5 gm in 100 mls @ 200 mls/hr IV.SIG Q6H [facility] Last Admin: 09/20/18 12:25 Dose: 200 mls/hr Vancomycin HCl 1,250 mg/ (Sodium Chloride) 262.5 mls @ 250 mls/hr IV.SIG Q24H [facility] Last Infusion: 09/19/18 17:11 Dose: Infused Sodium Chloride (1/2 Normal Saline Inj) 1,000 mls @ 100 mls/hr IV.CONT .Q10H [facility] Last Admin: 09/20/18 14:17 Dose: 100 mls/hr Magnesium Sulfate 4 gm/ Sodium (Chloride) 100 mls @ 50 mls/hr IV.SIG UNSCH PRN PRN Reason: For Magnesium 0.9 - 1.1 mg/dL Magnesium Sulfate 2 gm/ Sodium (Chloride) 100 mls @ 50 mls/hr IV.SIG UNSCH PRN PRN Reason: For Magnesium 1.2 - 1.6 mg/dL Potassium Chloride (Kcl 40 Meq Premix Inj) 40 meq in 100 mls @ 25 mls/hr IV.SIG Q2H PRN PRN Reason: For Potassium 2.8 - 3.2 mEq/L Potassium Chloride (Kcl 20 Meq Premix Inj) 20 meq in 100 mls @ 50 mls/hr IV.SIG Q2H PRN PRN Reason: For Potassium 3.3 - 3.5 mEq/L Last Infusion: 09/19/18 12:20 Dose: Infused Potassium Chloride (Kcl 40 Meq Premix Inj) 40 meq in 100 mls @ 25 mls/hr IV.SIG UNSCH PRN PRN Reason: For Potassium 3.3 - 3.5 mEq/L Potassium Phosphate 30 mmol/ (Sodium Chloride) 260 mls @ 42 mls/hr IV.SIG UNSCH PRN PRN Reason: SEE LABEL COMMENTS Sodium Phosphate 30 mmol/ (Sodium Chloride) 260 mls @ 42 mls/hr IV.SIG UNSCH PRN PRN Reason: For Phosphorus < 2.5 mg/dL Potassium Chloride (Kcl 20 Meq Premix Inj) 20 meq in 100 mls @ 50 mls/hr IV.SIG Q2H PRN PRN Reason: For Potassium 2.8 - 3.2 mEq/L Insulin Human Regular (Novolin R Correctional Sugar Inj) 0 units SQ Q6HR EUFEMIA; Protocol Last Admin: 09/20/18 12:25 Dose: Not Given Lactulose (Lactulose Liq) 30 ml PO DAILY PRN PRN Reason: SEVERE CONSITIPATION Magnesium Oxide (Mag-Ox) 800 mg PO UNSCH PRN PRN Reason: For Magnesium 1.2 - 1.6 mg/dL Methylprednisolone Sodium Succinate (Solumedrol Inj) 40 mg IV.PUSH Q12HR EUFEMIA Last Admin: 09/20/18 08:29 Dose: 40 mg Metoprolol Tartrate (Lopressor) 100 mg G-TUBE BID EUFEMIA Midazolam HCl (Versed Inj) 2 mg IV.PUSH Q1H PRN PRN Reason: SEDATION Last Admin: 09/20/18 14:41 Dose: 2 mg Miscellaneous Information ([facility] Ordered Lab Info) 0 each OTHER ONCE ONE Stop: 09/21/18 15:46 Miscellaneous Medication () 1 each OROPHARYNG 0000,0400,1200,1600 [facility] Last Admin: 09/20/18 12:25 Dose: 1 each Morphine Sulfate (Morphine Inj) 2 mg IV.PUSH Q2H PRN PRN Reason: PAIN SCALE 6 TO 10 Ondansetron HCl (Zofran Inj) 4 mg IV.PUSH Q6H PRN PRN Reason: NAUSEA OR VOMITING Pharmacy Profile Note (Vancomycin Consult Pharmacy) 1 each OTHER UNSCH PRN PRN Reason: Pharmacy to dose Potassium Chloride (Kcl Liq) 40 meq PO UNSCH PRN PRN Reason: Potassium level 3.3-3.5 mEq/L Potassium Chloride (Kcl Liq) 40 meq PO UNSCH PRN PRN Reason: Potassium level 3.3-3.5 mEq/L Potassium Phosphate (K-Phos Original) 2,000 mg PO Q4H PRN PRN Reason: Phosphorus Less Than 2.5 mg/dL Potassium Phosphate (K-Phos Original) 2,000 mg PO UNSCH PRN PRN Reason: SEE LABEL COMMENTS Last Admin: 09/20/18 09:49 Dose: 2,000 mg Senna/Docusate Sodium (Rosana-Colace) 1 tab PO BID [facility] Last Admin: 09/20/18 08:30 Dose: 1 tab Sennosides (Senokot) 17.2 mg PO Q12H PRN PRN Reason: Moderate Constipation Sodium Chloride (Ns Flush) 2 ml IV.FLUSH BID [facility] Last Admin: 09/20/18 08:30 Dose: 2 ml Sodium Chloride (Ns Flush) 2 ml IV.FLUSH PRN PRN PRN Reason: FLUSH AFTER USING IV ACCESS Sterile Water (Free Water) 0 ml G-TUBE Q4HR [facility] Stop: 09/20/18 16:01 Last Admin: 09/20/18 12:23 Dose: 150 ml Allergies Allergy/AdvReac Type Severity Reaction Status Date / Time *MDRO Multi-Drug Resistant AdvReac Unknown UNKNOWN Uncoded 09/18/18 18:40 Organism Home Medications Medication Instructions Recorded Confirmed Type Lactobacillus acidophilus 100 mg PO DAILY 09/18/18 09/18/18 History [Acidophilus] acetaminophen [Tylenol] 650 mg FEEDING TUBE Q6H PRN 09/18/18 09/18/18 History ascorbic acid (vitamin C) [Vitamin 500 mg FEEDING TUBE DAILY 09/18/18 09/18/18 History C] aspirin 81 mg FEEDING TUBE DAILY 09/18/18 09/18/18 History clonidine HCl 0.1 mg FEEDING TUBE DAILY PRN 09/18/18 09/18/18 History dextrose [Glucose Gel] 15 g PO DIRECTED PRN 09/18/18 09/18/18 History diltiazem HCl 60 mg FEEDING TUBE QID 09/18/18 09/18/18 History glucagon (human recombinant) 1 mg IM DIRECTED PRN 09/18/18 09/18/18 History [Glucagon Emergency Kit (human)] guaifenesin [Tussin] 200 mg FEEDING TUBE Q4H PRN 09/18/18 09/18/18 History hydrocodone-acetaminophen [Haslett] 1 tab FEEDING TUBE Q6H PRN 09/18/18 09/18/18 History insulin detemir U-100 [Levemir 5 unit SUBCUT BID 09/18/18 09/18/18 History U-100 Insulin] ipratropium-albuterol 3 ml INHALATION Q4H PRN 09/18/18 09/18/18 History loperamide 2 mg FEEDING TUBE Q6H PRN 09/18/18 09/18/18 History metoprolol tartrate 100 mg FEEDING TUBE Q12HR 09/18/18 09/18/18 History multivitamin 1 tab FEEDING TUBE DAILY 09/18/18 09/18/18 History Advance Directives Living Will: No Healthcare Surrogate: No Health Care Surrogate Name and Number: Health Care Proxy, spouse: Nazario Deutscht : [phone] Power of Professor Of Voice: No Today's verbally stated goals: Patient is not currently capacitated to make her own healthcare decisions, will not regain capacity. Family/friends goals: Awaiting arrival of spouse or return phone call to further clarify goals of medical treatment. Ethical and Legal Issues: No known written advanced directives. Patient is not capacitated to make her own healthcare decisions, will not likely regain capacity. . Has 2 adult daughters. According to [place] statutes healthcare proxy decision making falls to her spouse, Nazario Marrufo. Physical Exam Vital Signs: Vital Signs - 24 hr 09/19/18 15:59 09/19/18 16:00 09/19/18 17:00 Temperature 99.3 F 99.3 F Pulse Rate 95 H 92 H Respiratory Rate 16 16 16 Blood Pressure 145/65 H 142/65 H Pulse Oximetry 99 99 100 09/19/18 17:58 09/19/18 18:00 09/19/18 19:00 Temperature 99.3 F 99.0 F Pulse Rate 80 80 74 Respiratory Rate 16 16 Blood Pressure 132/61 133/61 Pulse Oximetry 99 100 09/19/18 19:57 09/19/18 20:00 09/19/18 21:00 Temperature 99.3 F 99.0 F Pulse Rate 80 80 96 H Respiratory Rate 16 16 16 Blood Pressure 139/65 149/66 H Pulse Oximetry 100 100 98 09/19/18 22:00 09/19/18 23:00 09/19/18 23:58 Temperature 99.0 F 98.8 F Pulse Rate 94 H 83 86 Respiratory Rate 16 16 16 Blood Pressure 162/69 H 151/67 H Pulse Oximetry 100 100 09/19/18 23:59 09/20/18 00:00 09/20/18 01:00 Temperature 98.8 F 98.4 F Pulse Rate 83 85 Respiratory Rate 16 16 16 Blood Pressure 158/70 H 152/67 H Pulse Oximetry 100 100 100 09/20/18 02:00 09/20/18 03:00 09/20/18 04:00 Temperature 98.2 F 98.2 F 98.1 F Pulse Rate 86 90 95 H Respiratory Rate 16 16 16 Blood Pressure 150/66 H 150/66 H 163/72 H Pulse Oximetry 100 100 100 09/20/18 04:59 09/20/18 06:00 09/20/18 07:00 Temperature 97.9 F Pulse Rate 88 93 H 87 Respiratory Rate 16 16 Blood Pressure 159/71 H Pulse Oximetry 100 100 09/20/18 07:32 09/20/18 07:58 09/20/18 08:00 Temperature 97.9 F Pulse Rate 82 80 Respiratory Rate 16 16 16 Blood Pressure 165/72 H Pulse Oximetry 100 100 09/20/18 09:00 09/20/18 10:00 09/20/18 10:01 Temperature 97.7 F 97.9 F 97.9 F Pulse Rate 86 93 H 92 H Respiratory Rate 16 16 16 Blood Pressure 147/66 H 188/80 H Pulse Oximetry 99 100 100 09/20/18 10:30 09/20/18 11:00 09/20/18 11:30 Temperature 98.1 F 98.1 F 97.9 F Pulse Rate 78 76 77 Respiratory Rate 16 16 16 Blood Pressure 180/76 H 172/74 H 172/73 H Pulse Oximetry 100 100 99 09/20/18 11:33 09/20/18 11:47 09/20/18 12:00 Temperature 97.9 F Pulse Rate 84 76 Respiratory Rate 16 16 16 Blood Pressure 177/76 H Pulse Oximetry 100 100 09/20/18 12:30 Temperature 98.2 F Pulse Rate 79 Respiratory Rate 13 Blood Pressure 168/75 H Pulse Oximetry 100 I&O: Intake & Output 09/18/18 09/19/18 09/20/18 09/21/18 06:59 06:59 06:59 06:59 Intake Total 2450 / 2450 3582.5 / 3582.5 1100 / 1100 Output Total 500 / 500 3225 / 3225 Balance 1950 / 1950 357.5 / 357.5 1100 / 1100 Weight 61.1 kg 61 kg Physical Exam: CONSTITUTIONAL/GENERAL: This is an adequately nourished patient, in no apparent distress. TUBES/LINES/DRAINS: ETT, PEG tube, PIV, Barnard, rectal tube, podus boot right SKIN: No jaundice, rashes, or lesions. Ecchymoses on upper extremities. No wounds seen anteriorly. Skin temperature appropriate. Not diaphoretic. HEAD: Atraumatic. Normocephalic. EYES: eyes closed. ENT: Unable to assess hearing. Nose without bleeding or purulent drainage. Throat difficult to visualize due to tubes. NECK: Trachea midline. CARDIOVASCULAR: Regular rate and rhythm without murmurs, gallops, or rubs. RESPIRATORY/CHEST: unlabored respirations on vent. diminished breath sounds bilaterally. GASTROINTESTINAL: Abdomen soft, nondistended. Bowel sounds present. GENITOURINARY: Without palpable bladder distension. Barnard catheter in place. MUSCULOSKELETAL: Left AKA, well-healed. No mottling or clubbing. LYMPHATICS: No palpable cervical or supraclavicular adenopathy. NEUROLOGICAL: Sedated on propofol, does not arouse to voice or exam. PSYCHIATRIC: Sedated. Diagnostic Tests Laboratory: Laboratory Results - last 72 hr 09/18/18 09/18/18 09/18/18 18:35 18:44 18:44 WBC RBC Hgb Hct MCV MCH MCHC RDW Plt Count MPV Neut % (Auto) Lymph % (Auto) Rawlins % (Auto) Eos % (Auto) Baso % (Auto) Neut # (Auto) Lymph # (Auto) Raw[place]ins # (Auto) Eos # (Auto) Baso # (Auto) WBC Differential Differential Comment PT 10.2 INR 1.0 APTT 24.9 Puncture Site Patient Temperature O2 Saturation ABG pH ABG pCO2 ABG pO2 ABG HCO3 ABG O2 Content ABG Base Excess ABG Methemoglobin Vasiliy Test Hemoglobin Carboxyhemoglobin O2 Delivery Device Vent Setting Inspired O2 Critical Value Sodium Potassium Chloride Carbon Dioxide Anion Gap BUN Creatinine Estimated GFR Random Glucose Lactic Acid Calcium Calcium Adj for Albumin Phosphorus Magnesium Total Bilirubin AST ALT Alkaline Phosphatase Troponin I Cancelled Total Protein Albumin Urine Color Yellow Urine Clarity Cloudy H Urine pH 8.0 Ur Specific Barnes 1.024 Urine Protein 100 H Urine Glucose (UA) Negative Urine Ketones Negative Urine Occult Blood Moderate H Urine Nitrate Negative Urine Bilirubin Negative Urine Urobilinogen Less than 2 Ur Leukocyte Esterase Moderate H Urine RBC Urine WBC Urine WBC Clumps Many H Ur Squamous Epith Cells 4 Triple Phos Crystals Many H Urine Bacteria Moderate H Urine Mucus Many H Micro UA Comment Cath-culture ind Ur Microscopic Review Not Reportable Urine Culture Comments Cath-cult indicated Nasal Screen MRSA (PCR) 09/18/18 09/18/18 09/18/18 18:44 18:44 18:56 WBC 11.2 H RBC 4.13 Hgb 9.1 L Hct 32.2 L MCV 78.0 L MCH 22.1 L MCHC 28.4 L RDW 18.2 H Plt Count 352 MPV 10.7 Neut % (Auto) 72.3 H Lymph % (Auto) 14.2 Rawlins % (Auto) 8.7 H Eos % (Auto) 4.1 H Baso % (Auto) 0.7 Neut # (Auto) 8.1 H Lymph # (Auto) 1.6 Rawlins # (Auto) 1.0 H Eos # (Auto) 0.5 H Baso # (Auto) 0.1 WBC Differential . Differential Comment Auto diff final PT INR APTT Puncture Site Patient Temperature O2 Saturation ABG pH ABG pCO2 ABG pO2 ABG HCO3 ABG O2 Content ABG Base Excess ABG Methemoglobin Vasiliy Test Hemoglobin Carboxyhemoglobin O2 Delivery Device Vent Setting Inspired O2 Critical Value Sodium 163 H* Potassium 3.4 L Chloride 129 H Carbon Dioxide 30.7 Anion Gap 3 L BUN 47 H Creatinine 0.68 Estimated GFR Greater than 89 Random Glucose 115 H Lactic Acid 1.2 Calcium 6.6 L* Calcium Adj for Albumin 8.4 L Phosphorus Magnesium 2.8 H Total Bilirubin 0.2 AST 18 ALT 17 Alkaline Phosphatase 74 Troponin I 0.12 H Total Protein 6.8 Albumin 1.8 L Urine Color Urine Clarity Urine pH Ur Specific Barnes Urine Protein Urine Glucose (UA) Urine Ketones Urine Occult Blood Urine Nitrate Urine Bilirubin Urine Urobilinogen Ur Leukocyte Esterase Urine RBC Urine WBC Urine WBC Clumps Ur Squamous Epith Cells Triple Phos Crystals Urine Bacteria Urine Mucus Micro UA Comment Ur Microscopic Review Urine Culture Comments Nasal Screen MRSA (PCR) 09/18/18 09/18/18 09/19/18 19:20 22:46 04:06 WBC 8.2 RBC 3.61 L Hgb 8.2 L Hct 28.4 L MCV 78.6 L MCH 22.8 L MCHC 29.0 L RDW 18.1 H Plt Count 292 MPV 11.0 Neut % (Auto) 81.5 H Lymph % (Auto) 12.9 Rawlins % (Auto) 2.8 Eos % (Auto) 2.3 Baso % (Auto) 0.5 Neut # (Auto) 6.7 Lymph # (Auto) 1.1 Rawlins # (Auto) 0.2 Eos # (Auto) 0.2 Baso # (Auto) 0.0 WBC Differential . Differential Comment Auto diff final PT INR APTT Puncture Site Right brachial Patient Temperature 98.6 O2 Saturation 97 ABG pH 7.35 L ABG pCO2 57 H* ABG pO2 126 H ABG HCO3 31 H ABG O2 Content 12.5 ABG Base Excess 5.2 H ABG Methemoglobin 0.6 Vasiliy Test Hemoglobin 9.0 L Carboxyhemoglobin 1.3 O2 Delivery Device Ventilator Vent Setting Inspired O2 50 Critical Value Yes Sodium Potassium Chloride Carbon Dioxide Anion Gap BUN Creatinine Estimated GFR Random Glucose Lactic Acid Calcium Calcium Adj for Albumin Phosphorus Magnesium Total Bilirubin AST ALT Alkaline Phosphatase Troponin I Total Protein Albumin Urine Color Urine Clarity Urine pH Ur Specific Barnes Urine Protein Urine Glucose (UA) Urine Ketones Urine Occult Blood Urine Nitrate Urine Bilirubin Urine Urobilinogen Ur Leukocyte Esterase Urine RBC Urine WBC Urine WBC Clumps Ur Squamous Epith Cells Triple Phos Crystals Urine Bacteria Urine Mucus Micro UA Comment Ur Microscopic Review Urine Culture Comments Nasal Screen MRSA (PCR) Not detected 09/19/18 09/19/18 09/19/18 04:06 04:06 04:06 WBC RBC Hgb Hct MCV MCH MCHC RDW Plt Count MPV Neut % (Auto) Lymph % (Auto) Rawlins % (Auto) Eos % (Auto) Baso % (Auto) Neut # (Auto) Lymph # (Auto) Rawlins # (Auto) Eos # (Auto) Baso # (Auto) WBC Differential Differential Comment PT 10.2 INR 1.0 APTT 21.7 L Puncture Site Patient Temperature O2 Saturation ABG pH ABG pCO2 ABG pO2 ABG HCO3 ABG O2 Content ABG Base Excess ABG Methemoglobin Vasiliy Test Hemoglobin Carboxyhemoglobin O2 Delivery Device Vent Setting Inspired O2 Critical Value Sodium 162 H* Potassium 3.1 L Chloride 126 H Carbon Dioxide 26.3 Anion Gap 10 BUN 45 H Creatinine 0.93 Estimated GFR 72 L Random Glucose 123 H Lactic Acid 4.1 H* Calcium 7.6 L D Calcium Adj for Albumin Phosphorus 1.6 L Magnesium 2.9 H Total Bilirubin 0.4 AST 37 ALT 24 Alkaline Phosphatase 91 Troponin I Total Protein 7.5 D Albumin 2.0 L Urine Color Urine Clarity Urine pH Ur Specific Barnes Urine Protein Urine Glucose (UA) Urine Ketones Urine Occult Blood Urine Nitrate Urine Bilirubin Urine Urobilinogen Ur Leukocyte Esterase Urine RBC Urine WBC Urine WBC Clumps Ur Squamous Epith Cells Triple Phos Crystals Urine Bacteria Urine Mucus Micro UA Comment Ur Microscopic Review Urine Culture Comments Nasal Screen MRSA (PCR) 09/19/18 09/20/18 09/20/18 11:07 06:01 06:01 WBC 7.5 RBC 3.58 L Hgb 8.1 L Hct 28.3 L MCV 79.2 L MCH 22.5 L MCHC 28.5 L RDW 18.6 H Plt Count 251 MPV 10.4 Neut % (Auto) 90.0 H Lymph % (Auto) 6.9 L Rawlins % (Auto) 2.9 Eos % (Auto) 0.0 Baso % (Auto) 0.2 Neut # (Auto) 6.8 Lymph # (Auto) 0.5 L Rawlins # (Auto) 0.2 Eos # (Auto) 0.0 Baso # (Auto) 0.0 WBC Differential . Differential Comment Auto diff final PT INR APTT Puncture Site Left radial Patient Temperature 98.6 O2 Saturation 96 ABG pH 7.51 H* ABG pCO2 29 L ABG pO2 134 H ABG HCO3 22 ABG O2 Content 11.7 L ABG Base Excess -0.3 ABG Methemoglobin 1.7 Vasiliy Test Present Hemoglobin 8.4 L Carboxyhemoglobin 1.1 O2 Delivery Device Ventilator Vent Setting Prvc20/500/1.0/+5 Inspired O2 35 Critical Value Yes Sodium 151 H D Potassium 3.3 L Chloride 121 H Carbon Dioxide 22.7 Anion Gap 7 BUN 19 H Creatinine 0.76 Estimated GFR Greater than 89 Random Glucose 182 H Lactic Acid Calcium 8.2 L Calcium Adj for Albumin Phosphorus Magnesium 2.6 H Total Bilirubin 0.2 AST 31 ALT 24 Alkaline Phosphatase 90 Troponin I Total Protein 8.0 Albumin 2.1 L Urine Color Urine Clarity Urine pH Ur Specific Barnes Urine Protein Urine Glucose (UA) Urine Ketones Urine Occult Blood Urine Nitrate Urine Bilirubin Urine Urobilinogen Ur Leukocyte Esterase Urine RBC Urine WBC Urine WBC Clumps Ur Squamous Epith Cells Triple Phos Crystals Urine Bacteria Urine Mucus Micro UA Comment Ur Microscopic Review Urine Culture Comments Nasal Screen MRSA (PCR) Result Diagrams: 09/20/18 06:01 09/20/18 06:01 Microbiology: Microbiology 09/18/18 18:45 Aerobic Blood Culture - Preliminary Blood - Peripheral No growth in 2 days Anaerobic Blood Culture - Preliminary No growth in 2 days 09/18/18 18:55 Aerobic Blood Culture - Preliminary Blood - Peripheral No growth in 2 days Anaerobic Blood Culture - Preliminary No growth in 2 days 09/18/18 18:35 Urine Culture - Preliminary Catheterized Urine gram negative rods Imaging: Head CT 09/18/18 18:40 CONCLUSION: 1. Stable appearance of the brain. Marked ventriculomegaly and white matter disease. . Chest CTA 09/18/18 19:26 CONCLUSION: 1. There is no evidence for pulmonary embolism. 2. Severe emphysema. 3. There is a large soft tissue mass in the right lower lobe suspicious for malignancy until proven otherwise. Chest X-Ray 09/20/18 00:00 CONCLUSION: Bibasilar consolidations. The left is new from the prior study. Procedures: * 09/18/18 - intubated Patient/Family Conference Present at Family Conference: Spoke with daughterBrea at bedside. Later met with and daughter at bedside. Family Conference Time: 90 Family Conference Location: Bedside Issues Discussed: * Palliative care role, purpose, approach * Additional medical, psychosocial, and spiritual history * Patients general health, functional status, and cognitive changes in the months leading up to the current hospitalization * Patient/family understanding of the current medical problems * Patient/family understanding of prognosis * Patients goals of care as best understood from advance directives and/or conversations and/or values * Current medical treatment options and benefits/burdens of those options * Likely scenarios comparing ongoing aggressive care with a transition to comfort measures only * Questions answered to the best of my ability * Palliative care contact information provided In summary, family revoked hospice services during my visit after medical update , goals of medical treatment conversation. did not remember signing [place] DNR order after showing him the document and admits it is his signature. He wants continued aggressive care. He tells me patient had a trach before and wants everything done. Then also verbalizes he wants hospice again upon DC back to SNF. Advised of poor pulmonary status, severe emphysema and lung mass koffi is likely cancer and that patient is not a candidate for treatment. Hunter verbalizes understanding and is happy to see "you are doing everything you can for her." He understands it is possible she will not survive this admission and that her life expectancy is limited. He tells me it is up to God. He wants FULL CODE and continued aggressive care. Assessment and Plan - Disease Oriented Problem List (1) UTI (urinary tract infection) (2) Respiratory failure (3) Lung mass (4) Emphysema lung (5) Lactic acidemia (6) Dehydration (7) Hypertension (8) Diabetes (9) Hypernatremia - Symptom Scale (1) Pain 0-10 Scale: Unable to quantify (2) Dyspnea 0-10 Scale: Unable to quantify Pertinent Non-Medical Issues: Psychosocial: . Has 2 daughters, Brea (lives [facility]) and Erica ( lives [place]). Spiritual: Unknown. Legal:No known written advanced directives. Patient is not capacitated to make her own healthcare decisions, will not likely regain capacity. . Has 2 adult daughters. According to [place] statutes healthcare proxy decision making falls to her spouse, Nazario Marrufo. Ethical issues impacting care: No known concerns at this time. Important Contacts: * Nazario Marrufo, spouse/HCP: [phone] * Brea Potts, daughter: [phone] or [phone] Prognosis: Overall prognosis is poor in this 68-year-old longterm dependent patient with end-stage stroke with residual hemiparesis, dysphagia, inability to communicate on tube feeding, bedbound at baseline. Now with 8 x 5 cm right lower lobe mass suspicious for malignancy. Patient not likely a candidate for surgical or chemotherapy. Overall prognosis poor. Code Status: Full Code Plan: * No known written advanced directives. Patient is not capacitated to make her own healthcare decisions, will not likely regain capacity. . Has 2 adult daughters. According to [place] statutes healthcare proxy decision making falls to her spouse, Nazario Marrufo. * FULL CODE -spouse revoked [place] DNR order on admission. * 09/20/18 - Spoke with daughter (Brea) and (Nazario) at bedside. In summary, family revoked hospice services during my visit after medical update, goals of medical treatment conversation. did not remember signing [place] DNR order after showing him the document and admits it is his signature. He wants continued aggressive care. He tells me patient had a trach before and wants everything done. Then also verbalizes he wants hospice again upon DC back to SNF. Advised of poor pulmonary status, severe emphysema and lung mass koffi is likely cancer and that patient is not a candidate for treatment. Hunter verbalizes understanding and is happy to see "you are doing everything you can for her." He understands it is possible she will not survive this admission and that her life expectancy is limited. He tells me it is up to God. He wants FULL CODE and continued aggressive care. * SYMPTOMS: Dyspnea: Secondary to emphysema, resp failure, on mech vent. Pain: due to tubes, resp failure, wound. On Propofol drip for vent synchrony. No new medication recommendations at this time. * Palliative care number provided. * Palliative care will continue to follow throughout hospital course to assist with symptom management further clarification of goals of medical treatment as needed. Appreciation Thank you for the opportunity to participate in the care of Leigh Marrufo. Attestation Attestation: To help prompt me to consider important information that might be impacting today's encounter and assessment, information from prior notes written by myself or my colleagues may have been "brought forward" into today's note. My signature on this note, however, is an attestation that I personally performed the exam, history, and/or decision-making noted today, and, unless otherwise indicated, the interactions with patient, family, and staff as well as the review of records all occurred today. I also attest that the listed assessment and stated plan reflect my best clinical judgment today based on the combination of historical information, prior notes, and today's exam/ interactions. When time spent is documented, it refers only to time spent today by the signer, or if indicated, combined time spent today by collaborating physician/nurse practitioner.
[2018-09-21] MEDS: Sodium Chloride 0.45 % Inj 1,000 ML IV.CONT SCH ×3 (00:09→09:00)
[2018-09-21] MEDS: Piperacil/Tazo 4.5 GM Premix 4.5 GM/100 ML BAG IV.SIG SCH ×4 (00:09→21:10)
[2018-09-21] MEDS: Potassium Chlor 20 mEq Premix 20 MEQ/100 ML PIGGYBACK IV.SIG PRN ×4 (00:09→08:51)
[2018-09-21] MEDS: Oral Hygiene Kit OROPHARYNG SCH ×5 (00:10→23:47)
[2018-09-21] MEDS: Insulin NovoLIN Regular Correctional Sugar Inj SQ SCH ×5 (01:22→23:46)
[2018-09-21] MEDS: Heparin - SQ 10,000 UNITS/ML Vial SQ SCH ×2 (03:00→12:12)
[2018-09-21] MEDS: Chlorhexidine Gluconate 2% 1 Pack (2 Cloths) TOPICAL SCH (03:00)
[2018-09-21] MEDS ORDERED: Labetalol HCl Inj 100 MG/20 ML Vial IV.PUSH PRN (05:03)
[2018-09-21] MEDS: Propofol 1000 mg/100 ml Inj 1,000 MG/100 ML BOTTLE IV.CONT PRN ×2 (05:11→23:47)
--- NOTE | 2018-09-21 08:45 | P.PNCC ---
Subjective Subjective Remarks/Hospital Course: 09/18: 68-year-old female past medical history of stroke, left BKA, who was on home hospice until just prior to arrival, presents for an evaluation of fever and altered mental status. According to EMS the patient had not required oxygen until beginning of this week when she had gradual increased demand of her oxygen. End-tidal CO2 prior to arrival was 6. Initial room nasal cannula saturation was 91, she was placed on nonrebreather position of comfort and transfer to emergency department. EMS related that the had elected to revoke the patient's DNR and hospice care prior to transferring her to the hospital. The patient apparently is normally a GCS of 14, apparently she does take some thickened food p.o. department the patient was severely altered with GCS of 6 on arrival [id number] and was intubated by ED attending for an airway protection. 09/19: Remains sedated, orally intubated on mechanical ventilation. CT chest showed right lower lobe lung mass suspicious for malignancy. Patient has a PEG tube following previous stroke. 09/20: Remains sedated, orally intubated on mechanical ventilation. Started on tube feeds. 09/21: Remains sedated, orally intubated on mechanical ventilation. Tolerating tube feeds. Right approximately swelling noted. Objective Vital Signs / I&O: Vital Signs 09/20/18 09:00 09/20/18 10:00 09/20/18 10:01 Temperature 97.7 F 97.9 F 97.9 F Pulse Rate 86 93 H 92 H Respiratory Rate 16 16 16 Blood Pressure 147/66 H 188/80 H Pulse Oximetry 99 100 100 09/20/18 10:30 09/20/18 11:00 09/20/18 11:30 Temperature 98.1 F 98.1 F 97.9 F Pulse Rate 78 76 77 Respiratory Rate 16 16 16 Blood Pressure 180/76 H 172/74 H 172/73 H Pulse Oximetry 100 100 99 09/20/18 11:33 09/20/18 11:47 09/20/18 12:00 Temperature 97.9 F Pulse Rate 84 76 Respiratory Rate 16 16 16 Blood Pressure 177/76 H Pulse Oximetry 100 100 09/20/18 12:30 09/20/18 13:00 09/20/18 13:30 Temperature 98.2 F 98.2 F 98.1 F Pulse Rate 79 80 76 Respiratory Rate 13 16 16 Blood Pressure 168/75 H 171/72 H 156/67 H Pulse Oximetry 100 100 100 09/20/18 14:00 09/20/18 14:30 09/20/18 15:00 Temperature 98.2 F 98.1 F 97.9 F Pulse Rate 79 79 79 Respiratory Rate 16 16 16 Blood Pressure 173/75 H 160/69 H 160/69 H Pulse Oximetry 100 100 100 09/20/18 15:30 09/20/18 16:00 09/20/18 16:29 Temperature 97.7 F 97.9 F Pulse Rate 75 73 Respiratory Rate 16 16 16 Blood Pressure 165/71 H 176/74 H Pulse Oximetry 100 100 100 09/20/18 16:30 09/20/18 16:31 09/20/18 17:00 Temperature 98.1 F 98.1 F Pulse Rate 69 69 72 Respiratory Rate 16 16 16 Blood Pressure 184/77 H 176/76 H Pulse Oximetry 100 100 09/20/18 17:30 09/20/18 18:00 09/20/18 18:30 Temperature 98.1 F 98.1 F 98.2 F Pulse Rate 71 76 74 Respiratory Rate 16 16 16 Blood Pressure 176/75 H 169/77 H 168/74 H Pulse Oximetry 100 96 100 09/20/18 19:00 09/20/18 19:30 09/20/18 20:00 Temperature 98.2 F 98.2 F 98.2 F Pulse Rate 74 73 74 Respiratory Rate 16 16 16 Blood Pressure 161/72 H 154/67 H 171/74 H Pulse Oximetry 99 99 100 09/20/18 20:11 09/20/18 20:14 09/20/18 20:30 Temperature 98.2 F Pulse Rate 79 81 Respiratory Rate 16 16 16 Blood Pressure 139/63 Pulse Oximetry 100 100 09/20/18 21:00 09/20/18 21:30 09/20/18 22:00 Temperature 98.4 F 98.4 F 98.4 F Pulse Rate 79 80 76 Respiratory Rate 16 16 16 Blood Pressure 166/70 H 159/70 H 163/72 H Pulse Oximetry 99 99 99 09/20/18 22:30 09/20/18 23:00 09/20/18 23:07 Temperature 98.6 F 98.8 F 98.8 F Pulse Rate 75 76 92 H Respiratory Rate 16 15 22 Blood Pressure 173/74 H 183/66 H 152/71 H Pulse Oximetry 99 100 100 09/20/18 23:31 09/21/18 00:00 09/21/18 00:31 Temperature 99.0 F 99.1 F 99.0 F Pulse Rate 81 80 90 Respiratory Rate 16 16 30 H Blood Pressure 177/76 H 171/72 H 163/70 H Pulse Oximetry 100 100 100 09/21/18 00:56 09/21/18 01:00 09/21/18 01:30 Temperature 99.0 F 99.0 F Pulse Rate 89 91 H 98 H Respiratory Rate 17 17 31 H Blood Pressure 173/74 H 180/78 H Pulse Oximetry 100 99 100 09/21/18 02:00 09/21/18 02:30 09/21/18 03:00 Temperature 99.0 F 99.0 F 99.1 F Pulse Rate 97 H 96 H 94 H Respiratory Rate 29 H 39 H 44 H Blood Pressure 178/78 H 176/77 H 175/76 H Pulse Oximetry 99 99 100 09/21/18 03:30 09/21/18 04:00 09/21/18 04:24 Temperature 99.1 F 99.1 F Pulse Rate 91 H 84 81 Respiratory Rate 33 H 16 18 Blood Pressure 180/75 H 174/76 H Pulse Oximetry 99 99 100 09/21/18 04:28 09/21/18 04:30 09/21/18 05:00 Temperature 99.1 F 99.1 F Pulse Rate 82 85 Respiratory Rate 16 16 Blood Pressure 172/75 H 171/73 H Pulse Oximetry 100 100 99 09/21/18 05:30 09/21/18 06:00 09/21/18 07:40 Temperature 99.1 F 99.0 F Pulse Rate 90 96 H Respiratory Rate 16 16 16 Blood Pressure 166/74 H 178/79 H Pulse Oximetry 99 99 100 Intake & Output 09/20/18 09/21/18 09/21/18 18:59 06:59 18:59 Intake Total 1857 / 1857 2237.5 / 2237.5 100 / 100 Output Total 2950 / 2950 1900 / 1900 Balance -1093 / -1093 337.5 / 337.5 100 / 100 Weight 61.5 kg Intake: IV 1200 / 1200 1762.5 / 1762.5 100 / 100 Diprivan 1000 mg/100 ml Inj 1, 100 / 100 100 / 100 000 mg In 100 ml @ 5 MCG/KG/MIN 2.041 mls/hr IV.CONT TITRATE PRN Rx#:[id number] 1/2 Normal Saline Inj 1,000 ML 1000 / 1000 1000 / 1000 @ 100 mls/hr IV.CONT .Q10H JORGE Rx#:[id number] Zosyn 4.5 GM Premix 4.5 gm In 100 / 100 200 / 200 100 ml @ 200 mls/hr IV.SIG Q6H JORGE Rx#:[id number] KCl 20 mEq Premix Inj 20 meq In 200 / 200 100 / 100 100 ml @ 50 mls/hr IV.SIG Q2H PRN Rx#:[id number] Vancomycin Inj 1,250 MG In NS 262.5 / 262.5 Inj 250 ML @ 250 mls/hr IV.SIG Q24H JORGE Rx#:[id number] Tube Feeding 207 / 207 395 / 395 Tube Irrigant 80 / 80 Water Bolus Amount 450 / 450 Output: Stool 400 / 400 300 / 300 Urine Amount (Catheter) 2550 / 2550 1600 / 1600 Indwelling Temp Sensing 2550 / 2550 1600 / 1600 Catheter Other: Date of Last Bowel Movement 09/20/18 09/21/18 Result Diagrams: 09/20/18 06:01 09/20/18 20:59 Imaging: Impressions Chest X-Ray 09/20/18 00:00 CONCLUSION: Bibasilar consolidations. The left is new from the prior study. Objective Remarks: HEENT/ Neuro: Sedated, orally intubated, Pallor present, no icterus, tongue/ mucosa moist Neck: No JVD Chest/Pulm: on mech vent, air entry decreased over right lower lung field, scattered rhonchi, no wheezing or crackles CVS: S1-S2 regular, no murmur GI/abdomen: soft, nontender, bowel sounds sluggish Extremities: warm bilaterally, , status post left BKA , right upper extremity edema, warm peripherally Assessment and Plan - Assessment and Plan Plan: Acute respiratory failure on mechanical ventilation -Intubated for an airway protection -No weaning until neurologically improved -DuoNeb scheduled and as needed -Vent bundle Pneumonia Suspected sepsis -We will treat as a hospital-acquired pneumonia -Broad-spectrum antibiotic -Follow-up cultures Lung mass -Pulmonary consulted for further evaluation of lung mass, will need lung biopsy if aggressive care desired. -Palliative care consultation -Most likely malignancy -Patient was on home hospice before which is now revoked Diabetes -Glucerna tube feeds -Insulin sliding scale Hypernatremia Hypokalemia -Continue half NS, free water via PEG tube. -Strict intake output, monitor and replete electrolytes, follow BUN/creatinine Right upper extremity edema: Check right upper extremity venous and arterial Dopplers HTN -Home medications on hold due to possible sepsis -Resume when indicated DVT GI prophylaxis -Teds SCDs -Subcu heparin -Pepcid Palliative care consulted to assist with deciding goals of therapy. Patient remains full CODE STATUS at this time. 35 minutes of critical care excluding procedures
[2018-09-21] MEDS: Senna/Docusate Sodium 8.6/50 MG Tablet PO SCH ×2 (08:48→20:20)
[2018-09-21] MEDS: Metoprolol Tartrate 100 MG Tablet G-TUBE SCH ×2 (08:48→20:19)
[2018-09-21] MEDS: Famotidine PF Inj 20 MG/2 ML Vial IV.PUSH SCH ×2 (08:49→20:19)
[2018-09-21] MEDS: MethylPREDNISolone Sod Succinate Inj 40 MG/ML Vial IV.PUSH SCH ×2 (08:50→20:20)
[2018-09-21] MEDS: Chlorhexidine 0.12% Oral Kit 15 ML UDC OROPHARYNG SCH ×2 (08:50→20:18)
--- NOTE | 2018-09-21 09:10 | US ---
EXAM DATE: 09/21/2018 8:59 AM EST AGE/SEX: 68 years / Female INDICATIONS: Right arm edema. CLINICAL DATA: This is the patient's initial encounter. Patient reports that signs and symptoms have been present for 1 day and indicates a pain score of Nonresponsive. MEDICAL/SURGICAL HISTORY: . Acute respiratory failure. CVA. Diabetes. Dysphasia. Hemiparesis. H emiplegia. Hypertension. Hypoxia. . Left above knee amputation. PEG tube placement. COMPARISON: No prior exams available for comparison. FINDINGS: There is occlusive thrombus within right brachial vein in addition to right cephalic vein. The internal jugular vein, subclavian vein and basilic and axillary veins are patent. Other: None. CONCLUSION: 1. There is occlusive thrombus within the right cephalic and brachial veins. Electronically signed by: Maru Willard MD Board Certified Radiologist 09/21/2018 9:08 AM EST
[2018-09-21 11:05] LABS: Baso % (Auto) 0.3 % (0.0-2.0); Hemoglobin 8.9 gm/dL (11.6-15.3); Lymph % (Auto) 10.5 % (9.0-44.0); Mean Corpuscular Hemoglobin 22.8 pg (27.0-34.0); Mean Corpuscular Volume 76.7 fL (80.0-100.0); Mean Platelet Volume 11.1 fL (7.0-11.0); Mono # (Auto) 0.8 th/mm3 (0.0-0.9); Mono % (Auto) 7.9 % (0.0-8.0); Neut # (Auto) 7.8 th/mm3 (1.8-7.7); Neut % (Auto) 81.3 % (16.0-70.0); Platelet Count 270 th/mm3 (150-450); Red Blood Count 3.91 mil/mm3 (4.00-5.30); White Blood Count 9.6 th/mm3 (4.0-11.0)
[2018-09-21 11:07] LABS: Mean Corpuscular HGB Conc 29.7 % (32.0-36.0)
[2018-09-21 12:32] LABS: Alanine Aminotransferase 28 U/L (10-53); Albumin 2.4 g/dL (3.4-5.0); Alkaline Phosphatase 90 U/L (45-117); Anion Gap 5 meq/L (5-15); Aspartate Aminotransferase 25 U/L (15-37); Blood Urea Nitrogen 18 mg/dL (7-18); Calcium 8.2 mg/dL (8.5-10.1); Carbon Dioxide 24.7 meq/L (21.0-32.0); Chloride 117 meq/L (98-107); Glomerular Filtration Rate Greater Than 89 mL/min (>89); Glucose,Random 141 mg/dL (74-106); Potassium 4.5 meq/L (3.5-5.1); Sodium 147 meq/L (136-145); Total Protein 8.3 g/dL (6.4-8.2)
[2018-09-21] MEDS ORDERED: Pharmacy Ordered Lab Info OTHER ONE (15:45)
[2018-09-21 17:54] LABS: Alkaline Phosphatase 87 U/L (45-117); Total Protein 7.9 g/dL (6.4-8.2); Vancomycin,Trough 10.2 mcg/mL (5.0-10.0)
[2018-09-21 18:13] LABS: Alanine Aminotransferase 28 U/L (10-53); Albumin 2.2 g/dL (3.4-5.0); Anion Gap 6 meq/L (5-15); Aspartate Aminotransferase 37 U/L (15-37); Blood Urea Nitrogen 19 mg/dL (7-18); Calcium 7.8 mg/dL (8.5-10.1); Carbon Dioxide 22.6 meq/L (21.0-32.0); Chloride 116 meq/L (98-107); Glomerular Filtration Rate Greater Than 89 mL/min (>89); Glucose,Random 151 mg/dL (74-106); Magnesium 2.3 mg/dL (1.5-2.5); Sodium 145 meq/L (136-145)
[2018-09-21 18:16] LABS: Potassium 4.6 meq/L (3.5-5.1)
[2018-09-21] MEDS: Enoxaparin Inj 60 MG/0.6 ML Syringe SQ SCH (18:34)
[2018-09-21] MEDS: Vancomycin Inj 1,250 MG in Sodium Chlor 0.9% Inj 250 ML IV.SIG SCH (18:34)
--- NOTE | 2018-09-21 19:35 | P.PNPL ---
Subjective Interval history: 68 YOAA female who was with Hospice svc, now rescended On Vent Daughter at , she dw her step father and do not want any lung bx Sedated Tolerates CPAP Physical Exam Vital signs: Vital Signs 09/20/18 20:00 09/20/18 20:11 09/20/18 20:14 Temperature 98.2 F Pulse Rate 74 79 Respiratory Rate 16 16 16 Blood Pressure 171/74 H Pulse Oximetry 100 100 09/20/18 20:30 09/20/18 21:00 09/20/18 21:30 Temperature 98.2 F 98.4 F 98.4 F Pulse Rate 81 79 80 Respiratory Rate 16 16 16 Blood Pressure 139/63 166/70 H 159/70 H Pulse Oximetry 100 99 99 09/20/18 22:00 09/20/18 22:30 09/20/18 23:00 Temperature 98.4 F 98.6 F 98.8 F Pulse Rate 76 75 76 Respiratory Rate 16 16 15 Blood Pressure 163/72 H 173/74 H 183/66 H Pulse Oximetry 99 99 100 09/20/18 23:07 09/20/18 23:31 09/21/18 00:00 Temperature 98.8 F 99.0 F 99.1 F Pulse Rate 92 H 81 80 Respiratory Rate 22 16 16 Blood Pressure 152/71 H 177/76 H 171/72 H Pulse Oximetry 100 100 100 09/21/18 00:31 09/21/18 00:56 09/21/18 01:00 Temperature 99.0 F 99.0 F Pulse Rate 90 89 91 H Respiratory Rate 30 H 17 17 Blood Pressure 163/70 H 173/74 H Pulse Oximetry 100 100 99 09/21/18 01:30 09/21/18 02:00 09/21/18 02:30 Temperature 99.0 F 99.0 F 99.0 F Pulse Rate 98 H 97 H 96 H Respiratory Rate 31 H 29 H 39 H Blood Pressure 180/78 H 178/78 H 176/77 H Pulse Oximetry 100 99 99 09/21/18 03:00 09/21/18 03:30 09/21/18 04:00 Temperature 99.1 F 99.1 F 99.1 F Pulse Rate 94 H 91 H 84 Respiratory Rate 44 H 33 H 16 Blood Pressure 175/76 H 180/75 H 174/76 H Pulse Oximetry 100 99 99 09/21/18 04:24 09/21/18 04:28 09/21/18 04:30 Temperature 99.1 F Pulse Rate 81 82 Respiratory Rate 18 16 Blood Pressure 172/75 H Pulse Oximetry 100 100 100 09/21/18 05:00 09/21/18 05:30 09/21/18 06:00 Temperature 99.1 F 99.1 F 99.0 F Pulse Rate 85 90 96 H Respiratory Rate 16 16 16 Blood Pressure 171/73 H 166/74 H 178/79 H Pulse Oximetry 99 99 99 09/21/18 07:00 09/21/18 07:40 09/21/18 08:00 Temperature 99.0 F Pulse Rate 100 H 100 H Respiratory Rate 16 16 35 H Blood Pressure 191/81 H Pulse Oximetry 100 99 09/21/18 08:30 09/21/18 09:00 09/21/18 09:30 Temperature 98.8 F 98.8 F 98.6 F Pulse Rate 104 H 104 H 106 H Respiratory Rate 34 H 32 H 19 Blood Pressure 171/79 H 174/77 H 170/79 H Pulse Oximetry 99 100 98 09/21/18 10:00 09/21/18 10:51 09/21/18 11:00 Temperature 98.8 F 98.8 F Pulse Rate 95 H 84 Respiratory Rate 22 31 H 28 H Blood Pressure 149/114 H 151/70 H Pulse Oximetry 100 100 100 09/21/18 11:30 09/21/18 12:00 09/21/18 12:30 Temperature 98.8 F 99.1 F 99.0 F Pulse Rate 82 86 86 Respiratory Rate 21 25 H 28 H Blood Pressure 158/72 H 147/70 H 162/72 H Pulse Oximetry 100 100 100 09/21/18 13:00 09/21/18 14:00 09/21/18 14:30 Temperature 98.6 F 98.6 F 98.8 F Pulse Rate 83 82 81 Respiratory Rate 28 H 29 H 16 Blood Pressure 157/117 H 156/72 H 163/73 H Pulse Oximetry 100 100 100 09/21/18 14:50 09/21/18 15:00 09/21/18 15:30 Temperature 99.0 F 98.8 F Pulse Rate 82 74 75 Respiratory Rate 16 16 16 Blood Pressure 148/67 H 147/65 H Pulse Oximetry 100 100 09/21/18 16:00 01/22/19 16:34 09/21/18 18:00 Temperature 98.4 F Pulse Rate 73 87 Respiratory Rate 16 16 Blood Pressure 160/67 H Pulse Oximetry 100 94 L Intake & Output 09/21/18 09/21/18 09/22/18 06:59 18:59 06:59 Intake Total 2237.5 / 2237.5 2000 / 1999 Output Total 1900 / 1900 1150 / 1150 Balance 337.5 / 337.5 850 / 850 Weight 61.5 kg Intake: IV 1762.5 / 1762.5 1400 / 1400 Diprivan 1000 mg/100 ml Inj 1, 100 / 100 000 mg In 100 ml @ 5 MCG/KG/MIN 2.041 mls/hr IV.CONT TITRATE PRN Rx#:[id number] 1/2 Normal Saline Inj 1,000 ML 1000 / 1000 1000 / 1000 @ 100 mls/hr IV.CONT .Q10H JORGE Rx#:[id number] Zosyn 4.5 GM Premix 4.5 gm In 200 / 200 200 / 200 100 ml @ 200 mls/hr IV.SIG Q6H JORGE Rx#:[id number] KCl 20 mEq Premix Inj 20 meq In 200 / 200 200 / 200 100 ml @ 50 mls/hr IV.SIG Q2H PRN Rx#:[id number] Vancomycin Inj 1,250 MG In NS 262.5 / 262.5 Inj 250 ML @ 250 mls/hr IV.SIG Q24H JORGE Rx#:[id number] Tube Feeding 395 / 395 500 / 500 Tube Irrigant 80 / 80 Water Bolus Amount 100 / 100 Output: Stool 300 / 300 200 / 200 Urine Amount (Catheter) 1600 / 1600 950 / 950 Indwelling Temp Sensing 1600 / 1600 950 / 950 Catheter Other: Date of Last Bowel Movement 09/21/18 09/21/18 GENERAL: Elderly AA female on Vent SKIN: Warm and dry. HEAD: Normocephalic. EYES: No scleral icterus. No injection or drainage. NECK: Supple, trachea midline. No JVD or lymphadenopathy. CARDIOVASCULAR: Regular rate and rhythm without murmurs, gallops, or rubs. RESPIRATORY: Breath sounds equal bilaterally. No accessory muscle use. GASTROINTESTINAL: Abdomen soft, non-tender, nondistended. MUSCULOSKELETAL: No cyanosis, or edema. BACK: Nontender without obvious deformity. No CVA tenderness. - Urinary Catheter Management Indwelling Temp Sensing Catheter Cath placed during this visit: yes Reason for continuing: Severe pressure ulcer/wound Insertion date: 09/18/18 Insertion time: 18:50 Assessment and Plan - Plan IMPRESSION: VDRF large Rt lung mass COPD HTN H/O CVA PLAN: Cont vent support Aerosol nebs IV Solumedrol Cont Abx DW Daughter at BS , does want any lung bx
[2018-09-22] MEDS: Piperacil/Tazo 4.5 GM Premix 4.5 GM/100 ML BAG IV.SIG SCH ×4 (00:39→18:04)
--- NOTE | 2018-09-22 04:45 | XR ---
EXAM DATE: 09/22/2018 4:25 AM EST AGE/SEX: 68 years / Female INDICATIONS: Respiratory failure. CLINICAL DATA: This is the patient's subsequent encounter. Patient reports that signs and symptoms h ave been present for 4 - 6 days and indicates a pain score of Nonresponsive. MEDICAL/SURGICAL HISTORY: . Pneumonia. Lung mass. DM, Hypernatremia. HTN. DVT> CVA> GERD> Hemip legia. . PEG TUbe. Left above the knee amputation. COMPARISON: [facility] [place], CHEST 1V SINGLE AP, 09/20/2018. . FINDINGS: A single AP view of the chest demonstrates the tip of the endotracheal tube 4 cm from the mila. Jose ogastric tube courses off the inferior margin of the film. Bibasilar consolidation observed. The righ t is more pronounced than the left. Both are stable in the prior study. No effusions. Heart is normal in size. CONCLUSION: Unchanged bibasilar consolidation particularly on the right. Electronically signed by: Juan Cedeño MD Board Certified Radiologist 09/22/2018 4:44 AM EST
[2018-09-22] MEDS: Chlorhexidine Gluconate 2% 1 Pack (2 Cloths) TOPICAL SCH (05:37)
[2018-09-22] MEDS: Oral Hygiene Kit OROPHARYNG SCH ×3 (05:37→15:06)
[2018-09-22] MEDS: Sodium Chloride 0.45 % Inj 1,000 ML IV.CONT SCH ×2 (05:38→08:14)
[2018-09-22] MEDS: Insulin NovoLIN Regular Correctional Sugar Inj SQ SCH ×3 (05:38→17:29)
[2018-09-22 06:04] LABS: Baso % (Auto) 0.5 % (0.0-2.0); Hematocrit 27.6 % (35.0-46.0); Hemoglobin 8.2 gm/dL (11.6-15.3); Lymph # (Auto) 0.7 th/mm3 (1.0-4.8); Lymph % (Auto) 9.2 % (9.0-44.0); Mean Corpuscular Hemoglobin 22.8 pg (27.0-34.0); Mean Corpuscular Volume 77.1 fL (80.0-100.0); Mono # (Auto) 0.5 th/mm3 (0.0-0.9); Mono % (Auto) 6.5 % (0.0-8.0); Neut # (Auto) 6.3 th/mm3 (1.8-7.7); Neut % (Auto) 83.8 % (16.0-70.0); Platelet Count 228 th/mm3 (150-450); Red Blood Count 3.59 mil/mm3 (4.00-5.30); Red Cell Distribution Width 18.3 % (11.6-17.2); White Blood Count 7.5 th/mm3 (4.0-11.0)
[2018-09-22 06:16] LABS: Mean Corpuscular HGB Conc 29.6 % (32.0-36.0)
[2018-09-22 06:31] LABS: Alanine Aminotransferase 36 U/L (10-53); Albumin 2.2 g/dL (3.4-5.0); Anion Gap 7 meq/L (5-15); Aspartate Aminotransferase 39 U/L (15-37); Blood Urea Nitrogen 20 mg/dL (7-18); Chloride 118 meq/L (98-107); Glomerular Filtration Rate Greater Than 89 mL/min (>89); Glucose,Random 138 mg/dL (74-106); Magnesium 2.5 mg/dL (1.5-2.5); Potassium 3.8 meq/L (3.5-5.1); Sodium 148 meq/L (136-145)
[2018-09-22 06:33] LABS: Alkaline Phosphatase 85 U/L (45-117); Total Protein 7.5 g/dL (6.4-8.2)
[2018-09-22 07:10] LABS: Ovalocytes 1+; Platelet Estimate Normal (Normal); Toxic Vacuolation Present
[2018-09-22] MEDS: Metoprolol Tartrate 100 MG Tablet G-TUBE SCH ×2 (08:10→20:27)
[2018-09-22] MEDS: Senna/Docusate Sodium 8.6/50 MG Tablet PO SCH ×2 (08:10→20:27)
[2018-09-22] MEDS: MethylPREDNISolone Sod Succinate Inj 40 MG/ML Vial IV.PUSH SCH ×2 (08:10→20:28)
[2018-09-22] MEDS: Famotidine PF Inj 20 MG/2 ML Vial IV.PUSH SCH ×2 (08:10→20:27)
[2018-09-22] MEDS: Chlorhexidine 0.12% Oral Kit 15 ML UDC OROPHARYNG SCH ×2 (08:11→20:26)
[2018-09-22] MEDS: Enoxaparin Inj 60 MG/0.6 ML Syringe SQ SCH ×2 (08:11→20:27)
[2018-09-22] MEDS: Vancomycin Inj 1,250 MG in Sodium Chlor 0.9% Inj 250 ML IV.SIG SCH (11:13)
[2018-09-22] MEDS ORDERED: Collagenase Oint 30 GM Tube TOPICAL ONE (12:00)
--- NOTE | 2018-09-22 12:17 | P.PNWCN ---
Wound Care Nurse Consult Description: Received wound management consult for wound management of sacral area from Doctor Kuldip. Communicated with: CHER Moreno 5th floor [facility] and Doctor Raul Recommendation: 1. Please cleanse wound to sacral area with normal saline only and pat dry. 2. Apply cavilon skin barrier film to periwound. 3. Apply Santyl ointment janet thickness to wound bed 4. Pack wound loosely with maxorb II, avoiding periwound intact skin 5.Apply Bordered gauze in place and change dressing daily. 6. Turn patient every 2 hours from L side to R side, limiting time spent on back to P.T., patient care and meals. 7. Place patient on low airloss bed when it arrives. Do not place cotton underpads on low airloss bed. Wound/Pressure Injury - Wound Sacrum Wound Staging: Stage IV Wound Assessment: Ongoing Wound Type: Pressure Injury Length (cm): 3.9 Width (cm): 3 Depth (cm): 1.9 Wound Bed Appearance: [place], Red, Tunneling/Undermining (undermining is circumferential ), Yellow Wound Bed Appearance: Wound bed presents with ~ 20% fascia, ~60% yellow thin slough, 10% red non granular tissue, and ~10% pink tissue.Periwound is noted with maceration at wound edges circumferentially. Surrounding Tissue Temperature: Warm Drainage Description: Serosanguinous Drainage Amount: Minimal Drainage Odor: No Odor Dressing Status: Changed Cleansing Solution: Saline Topical: sure prep skin barrier film to periwound Primary Dressing: Gauze Pad Cover Dressing: bordered gauze Wound Dressing Change Date: 09/22/18 Wound Margin Description: Wound margins are well defined, unattached, with epibole - Additional Information Patient seen on 5th floor [facility] for wound management of sacral area. Patient was turned toward the R side with the assistance of Alicia KWON, Lona KWON [facility], and write to reveal bordered gauze in place to sacrococcygeal area. Removed bordered gauze dressing to reveal open wound to Sacral area. Wound presents with the appearance of pressure etiology. Wound bed presents with ~ 20% fascia , ~60% yellow thin slough, 10% red non granular tissue, and ~10% pink tissue.Periwound is noted with maceration at wound edges circumferentially.Due to the visible Fascia in wound bed, wound is a stage IV pressure injury. Undermining is noted circumferentially, deepest at 3 o'clock measuring ~1.2cm Wound margins are well defined, unattached with epibole.Drainage from wound is minimal and sero-sanguinous at this time. Wound was cleansed with normal saline and patted dry. Applied Saline moistened gauze packed loosely to wound bed to fill in space and covered with bordered gauze. Dressing is temporary. RN to apply dressing as recommended when Santyl and maxorb II is available. Patient tolerated wound assessment and dressing change well. Patient has dignisheild in place for fecal management and urinary catheter in place.Patient will need low airloss support surface.Full wound description, measurements and wound care recommendations are noted above.
--- NOTE | 2018-09-22 13:56 | P.PNCC ---
Subjective Subjective Remarks/Hospital Course: 09/18: 68-year-old female past medical history of stroke, left BKA, who was on home hospice until just prior to arrival, presents for an evaluation of fever and altered mental status. According to EMS the patient had not required oxygen until beginning of this week when she had gradual increased demand of her oxygen. End-tidal CO2 prior to arrival was 6. Initial room nasal cannula saturation was 91, she was placed on nonrebreather position of comfort and transfer to emergency department. EMS related that the had elected to revoke the patient's DNR and hospice care prior to transferring her to the hospital. The patient apparently is normally a GCS of 14, apparently she does take some thickened food p.o. department the patient was severely altered with GCS of 6 on arrival [id number] and was intubated by ED attending for an airway protection. 09/19: Remains sedated, orally intubated on mechanical ventilation. CT chest showed right lower lobe lung mass suspicious for malignancy. Patient has a PEG tube following previous stroke. 09/20: Remains sedated, orally intubated on mechanical ventilation. Started on tube feeds. 09/21: Remains sedated, orally intubated on mechanical ventilation. Tolerating tube feeds. Right approximately swelling noted. Subjective: 09/22 Is not tolerating CPAP trial when decrease PS below 18. Daughter at bedside, says will be here later. Says they don't think they want to proceed with lung biopsy at this time, but on the other hand she discusses the possibility of re-do trach. She says they are not sure how to proceed. I suggested we meet together. Daughter states she has been bedridden since stroke about 4 years ago. Has been in retirement. PEG due to dysphagia, does not eat. Speaks a little but daughter states she has declined significantly over the last 2 weeks. Objective Vital Signs / I&O: Vital Signs 09/21/18 14:00 09/21/18 14:30 09/21/18 14:50 Temperature 98.6 F 98.8 F Pulse Rate 82 81 82 Respiratory Rate 29 H 16 16 Blood Pressure 156/72 H 163/73 H Pulse Oximetry 100 100 09/21/18 15:00 09/21/18 15:30 09/21/18 16:00 Temperature 99.0 F 98.8 F 98.4 F Pulse Rate 74 75 73 Respiratory Rate 16 16 16 Blood Pressure 148/67 H 147/65 H 160/67 H Pulse Oximetry 100 100 100 09/21/18 16:34 09/21/18 18:00 09/21/18 19:46 Temperature Pulse Rate 87 77 Respiratory Rate 16 16 Blood Pressure Pulse Oximetry 94 L 100 09/21/18 20:00 09/21/18 22:00 09/21/18 23:27 Temperature 98.8 F Pulse Rate 74 71 69 Respiratory Rate 16 16 Blood Pressure 146/65 H Pulse Oximetry 100 09/22/18 00:00 09/22/18 01:20 09/22/18 02:00 Temperature 98.4 F Pulse Rate 73 93 H Respiratory Rate 16 16 Blood Pressure 161/70 H Pulse Oximetry 100 100 09/22/18 04:00 09/22/18 04:05 09/22/18 06:00 Temperature 98.8 F 98.2 F Pulse Rate 86 84 71 Respiratory Rate 16 16 16 Blood Pressure 153/68 H Pulse Oximetry 100 100 100 09/22/18 06:01 09/22/18 06:30 09/22/18 07:00 Temperature 98.2 F 98.2 F 98.2 F Pulse Rate 75 73 69 Respiratory Rate 16 16 16 Blood Pressure 169/73 H 150/67 H 161/72 H Pulse Oximetry 100 100 100 09/22/18 07:30 09/22/18 08:00 09/22/18 08:17 Temperature 98.2 F 98.4 F Pulse Rate 68 69 77 Respiratory Rate 16 16 14 Blood Pressure 157/68 H 152/70 H Pulse Oximetry 100 99 09/22/18 08:18 09/22/18 08:30 09/22/18 08:49 Temperature 98.4 F Pulse Rate 85 Respiratory Rate 16 19 Blood Pressure 165/72 H Pulse Oximetry 100 99 99 09/22/18 09:00 09/22/18 09:01 09/22/18 09:31 Temperature 98.2 F 98.2 F 98.2 F Pulse Rate 95 H 96 H 93 H Respiratory Rate 20 17 28 H Blood Pressure 135/63 172/69 H Pulse Oximetry 98 99 100 09/22/18 10:00 09/22/18 10:30 09/22/18 11:00 Temperature 98.2 F 98.6 F 98.8 F Pulse Rate 92 H 84 91 H Respiratory Rate 20 19 37 H Blood Pressure 162/70 H 174/72 H Pulse Oximetry 100 99 96 09/22/18 11:01 09/22/18 11:30 09/22/18 11:37 Temperature 98.8 F 98.1 F Pulse Rate 91 H 87 86 Respiratory Rate 35 H 24 24 Blood Pressure 168/70 H 186/76 H Pulse Oximetry 100 100 100 09/22/18 12:00 09/22/18 12:30 Temperature 98.2 F 98.4 F Pulse Rate 85 85 Respiratory Rate 17 18 Blood Pressure 178/79 H 184/75 H Pulse Oximetry 100 98 Intake & Output 09/21/18 09/22/18 09/22/18 18:59 06:59 18:59 Intake Total 2100 / 2100 1039.5 / 1039.5 1462.5 / 1462.5 Output Total 1150 / 1150 1500 / 1500 Balance 950 / 950 -460.5 / -460.5 1462.5 / 1462.5 Weight 63 kg Intake: IV 1500 / 1500 462.5 / 462.5 1462.5 / 1462.5 Diprivan 1000 mg/100 ml Inj 1, 100 / 100 000 mg In 100 ml @ 5 MCG/KG/MIN 2.041 mls/hr IV.CONT TITRATE PRN Rx#:[id number] 1/2 Normal Saline Inj 1,000 ML 1000 / 1000 1000 / 1000 @ 50 mls/hr IV.CONT .Q20H JORGE Rx#:[id number] Zosyn 4.5 GM Premix 4.5 gm In 200 / 200 200 / 200 200 / 200 100 ml @ 200 mls/hr IV.SIG Q6H JORGE Rx#:[id number] KCl 20 mEq Premix Inj 20 meq In 200 / 200 100 ml @ 50 mls/hr IV.SIG Q2H PRN Rx#:[id number] Vancomycin Inj 1,250 MG In NS 262.5 / 262.5 262.5 / 262.5 Inj 250 ML @ 250 mls/hr IV.SIG Q18H JORGE Rx#:[id number] Oral 0 / 0 Tube Feeding 500 / 500 477 / 477 Tube Irrigant 100 / 100 Water Bolus Amount 100 / 100 Output: Urine 1400 / 1400 Stool 200 / 200 100 / 100 Urine Amount (Catheter) 950 / 950 Indwelling Temp Sensing 950 / 950 Catheter Other: Date of Last Bowel Movement 09/21/18 09/21/18 Result Diagrams: 09/22/18 05:09 09/22/18 05:09 Objective Remarks: GENERAL: Well-nourished, well-developed patient who is orotracheally intubated. SKIN: Warm and dry. HEAD: Atraumatic. Normocephalic. EYES: Pupils equal and round. No scleral icterus. No injection or drainage. ENT: No nasal bleeding or discharge. Mucous membranes pink and moist. NECK: Trachea midline. No JVD. CARDIOVASCULAR: Regular rate and rhythm. No murmurs rubs or gallops. RESPIRATORY: Orotracheally intubated on mechanical ventilation. Rhonchorous breath sounds. No wheeze or rales. GASTROINTESTINAL: Abdomen soft, non-tender, nondistended. PEG in place, aspirated gastric contents, flushes easily. OGT in place with feeds running.. MUSCULOSKELETAL: Extremities without clubbing, cyanosis, or edema. s/p L BKA. NEUROLOGICAL: Awakens, looks around. Assessment and Plan - Assessment and Plan Plan: NEURO: History of stroke Propofol for sedation RESP: Acute respiratory failure on mechanical ventilation Emphysema Lung mass History of prior trach after stroke, has been subsequently decannulated Discussed with daughter and Dr. De Jesus. Daughter not wishing to pursue CT-guided biopsy. Will confirm with . Daily CPAP trials. Vent bundle/nebs. Mechanical ventilation day #5. Will discuss with and daughter collectively regarding their expectations for trach. CV: HTN Monitor BP//heart rate. Continue metoprolol 100 bid. Resume cardizem 60q6. GI: PEG in place. Glucerna tube feeds. FEN/RENAL: Acute hypernatremia Hypokalemia Discontinue 0.45 NaCl. Give free water flushes via PEG. ID: [id number] UTI Urine culture from 09/18 with providentia and Proteus. Urine and sputum cultures negative On zosyn since 09/18 #5. Will d/c following 7 day course. HEME: R brachial DVT Lovenox 60 mg subcu every 12 hours. ENDO: Diabetes mellitus Insulin sliding scale PROPH: SCD/Lovenox for DVT prophylaxis. Famotidine for stress ulcer prophylaxis. ACCESS: PIV x2. Full code Level 3 followup.
[2018-09-22] MEDS ORDERED: Metoprolol Tartrate 100 MG Tablet NG/OG SCH (15:00)
[2018-09-22] MEDS: dilTIAZem 60 MG Tablet PO SCH ×2 (16:03→22:11)
--- NOTE | 2018-09-22 16:34 | P.PNPAL ---
Reason for Visit Reason for visit: a. To assist with evaluation and management of symptoms including: dyspnea, pain. b. To assist medical decision maker(s) with: better understanding of current medical conditions; weighing benefits/burdens of medical treatment options; making medical treatment decisions. Subjective Subjective/Interval History: Patient seen and examined in ICU. Daughter, Brea at bedside. works during the day, usually comes after work. Patient is awake. She is tolerating CPAP trial. She nods yes/ no to some questions. She nods no to pain or shortness of breath. Labs stable. Urine culture + Proteus mirabilis and Providencia stuarti, on Zosyn and Vancomycin. Chest x-ray with unchanged bibasilar consolidation particularly on the right. Venous doppler ultrasound with occlusive thrombus in the right cephalic and brachial veins on Lovenox. 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 Daughter again verbalizes (she and her fathers) desire for continued aggressive care, they desire FULL CODE. Daughter and spouse indicated to pulmonology and outside plant supervisor not wanting to pursue lung biopsy. Family did indicate desire for her to go back to SNF with hospice upon DC despite desire for us to do everything to save her now. Family/Friend Interactions: See interval note. Advance Directives Living Will: Never completed Health Care Surrogate: Never completed Durable Power of Dealer Compliance Representative: Never completed Health Care Surrogate Name and Number: Health Care Proxy, spouse: Nazario Cliatt : [phone] Documented care wishes:: Has [place] DNR order signed by spouse in 2014, he has since rescinded DNR and revoked hospice services. Significant change in goals:: FULL CODE, goals remain aggressive short of no lung biopsy at this time. Objective Vital Signs: Vital Signs 09/21/18 16:34 09/21/18 18:00 09/21/18 19:46 Temperature Pulse Rate 87 77 Respiratory Rate 16 16 Blood Pressure Pulse Oximetry 94 L 100 09/21/18 20:00 09/21/18 22:00 09/21/18 23:27 Temperature 98.8 F Pulse Rate 74 71 69 Respiratory Rate 16 16 Blood Pressure 146/65 H Pulse Oximetry 100 09/22/18 00:00 09/22/18 01:20 09/22/18 02:00 Temperature 98.4 F Pulse Rate 73 93 H Respiratory Rate 16 16 Blood Pressure 161/70 H Pulse Oximetry 100 100 09/22/18 04:00 09/22/18 04:05 09/22/18 06:00 Temperature 98.8 F 98.2 F Pulse Rate 86 84 71 Respiratory Rate 16 16 16 Blood Pressure 153/68 H Pulse Oximetry 100 100 100 09/22/18 06:01 09/22/18 06:30 09/22/18 07:00 Temperature 98.2 F 98.2 F 98.2 F Pulse Rate 75 73 69 Respiratory Rate 16 16 16 Blood Pressure 169/73 H 150/67 H 161/72 H Pulse Oximetry 100 100 100 09/22/18 07:30 09/22/18 08:00 09/22/18 08:17 Temperature 98.2 F 98.4 F Pulse Rate 68 69 77 Respiratory Rate 16 16 14 Blood Pressure 157/68 H 152/70 H Pulse Oximetry 100 99 09/22/18 08:18 09/22/18 08:30 09/22/18 08:49 Temperature 98.4 F Pulse Rate 85 Respiratory Rate 16 19 Blood Pressure 165/72 H Pulse Oximetry 100 99 99 09/22/18 09:00 09/22/18 09:01 09/22/18 09:31 Temperature 98.2 F 98.2 F 98.2 F Pulse Rate 95 H 96 H 93 H Respiratory Rate 20 17 28 H Blood Pressure 135/63 172/69 H Pulse Oximetry 98 99 100 09/22/18 10:00 09/22/18 10:30 09/22/18 11:00 Temperature 98.2 F 98.6 F 98.8 F Pulse Rate 92 H 84 91 H Respiratory Rate 20 19 37 H Blood Pressure 162/70 H 174/72 H Pulse Oximetry 100 99 96 09/22/18 11:01 09/22/18 11:30 09/22/18 11:37 Temperature 98.8 F 98.1 F Pulse Rate 91 H 87 86 Respiratory Rate 35 H 24 24 Blood Pressure 168/70 H 186/76 H Pulse Oximetry 100 100 100 09/22/18 12:00 09/22/18 12:30 09/22/18 13:00 Temperature 98.2 F 98.4 F 98.4 F Pulse Rate 85 85 81 Respiratory Rate 17 18 18 Blood Pressure 178/79 H 184/75 H 169/79 H Pulse Oximetry 100 98 98 09/22/18 13:30 09/22/18 14:00 09/22/18 14:30 Temperature 98.4 F 98.4 F 98.6 F Pulse Rate 80 81 78 Respiratory Rate 22 26 H 16 Blood Pressure 184/75 H 157/70 H 162/70 H Pulse Oximetry 99 100 100 09/22/18 15:00 09/22/18 15:03 09/22/18 15:30 Temperature 98.8 F 98.8 F 98.8 F Pulse Rate 75 82 83 Respiratory Rate 20 25 H 16 Blood Pressure 126/56 L 134/64 Pulse Oximetry 99 98 100 09/22/18 16:00 Temperature 99.0 F Pulse Rate 83 Respiratory Rate 16 Blood Pressure 125/60 Pulse Oximetry 100 Intake & Output 09/21/18 09/22/18 09/22/18 18:59 06:59 18:59 Intake Total 2100 / 2100 1039.5 / 1039.5 1812.5 / 1812.5 Output Total 1150 / 1150 1500 / 1500 Balance 950 / 950 -460.5 / -460.5 1812.5 / 1812.5 Weight 63 kg Intake: IV 1500 / 1500 462.5 / 462.5 1812.5 / 1812.5 Diprivan 1000 mg/100 ml Inj 1, 100 / 100 000 mg In 100 ml @ 5 MCG/KG/MIN 2.041 mls/hr IV.CONT TITRATE PRN Rx#:[id number] 1/2 Normal Saline Inj 1,000 ML 1000 / 1000 1350 / 1350 @ 50 mls/hr IV.CONT .Q20H JORGE Rx#:[id number] Zosyn 4.5 GM Premix 4.5 gm In 200 / 200 200 / 200 200 / 200 100 ml @ 200 mls/hr IV.SIG Q6H JORGE Rx#:[id number] KCl 20 mEq Premix Inj 20 meq In 200 / 200 100 ml @ 50 mls/hr IV.SIG Q2H PRN Rx#:[id number] Vancomycin Inj 1,250 MG In NS 262.5 / 262.5 262.5 / 262.5 Inj 250 ML @ 250 mls/hr IV.SIG Q18H JORGE Rx#:[id number] Oral 0 / 0 Tube Feeding 500 / 500 477 / 477 Tube Irrigant 100 / 100 Water Bolus Amount 100 / 100 Output: Urine 1400 / 1400 Stool 200 / 200 100 / 100 Urine Amount (Catheter) 950 / 950 Indwelling Temp Sensing 950 / 950 Catheter Other: Date of Last Bowel Movement 09/21/18 09/21/18 Physical Exam: CONSTITUTIONAL/GENERAL: This is an adequately nourished patient, in no apparent distress. TUBES/LINES/DRAINS: ETT, PEG tube, PIV, Barnard, rectal tube, podus boot right SKIN: No jaundice, rashes, or lesions. Ecchymoses on upper extremities. No wounds seen anteriorly. Skin temperature appropriate. Not diaphoretic. EYES: eyes open, tracking. ENT: Hearing appears grossly normal. Nose without bleeding or purulent drainage. Throat difficult to visualize due to tubes. CARDIOVASCULAR: Regular rate and rhythm without murmur. RESPIRATORY/CHEST: unlabored respirations on CPAP. diminished breath sounds bilaterally. GASTROINTESTINAL: Abdomen soft, nondistended. Bowel sounds present. GENITOURINARY: Without palpable bladder distension. Barnard catheter in place. MUSCULOSKELETAL: Left AKA, well-healed. No mottling or clubbing. NEUROLOGICAL: Awakens easily to voice, nods yes/no to voice. Squeezes hand on right. PSYCHIATRIC: calm. Diagnostic Tests Laboratory: Laboratory Results - last 72 hr 09/18/18 09/19/18 09/19/18 18:35 11:17 17:39 WBC RBC Hgb Hct MCV MCH MCHC RDW Plt Count MPV Prelim Diff (Auto) Neut % (Auto) Lymph % (Auto) Bay % (Auto) Eos % (Auto) Baso % (Auto) Neut # (Auto) Lymph # (Auto) Bay # (Auto) Eos # (Auto) Baso # (Auto) WBC Differential Diff Scan Differential Comment Toxic Vacuolation Platelet Estimate Platelet Morphology Ovalocytes Sodium Potassium Chloride Carbon Dioxide Anion Gap BUN Creatinine Estimated GFR POC Glucose 129 H 205 H Random Glucose Calcium Magnesium Total Bilirubin AST ALT Alkaline Phosphatase Total Creatine Kinase Total Protein Albumin Urine Color Yellow Urine Clarity Cloudy H Urine pH 8.0 Ur Specific [place] 1.024 Urine Protein 100 H Urine Glucose (UA) Negative Urine Ketones Negative Urine Occult Blood Moderate H Urine Nitrate Negative Urine Bilirubin Negative Urine Urobilinogen Less than 2 Ur Leukocyte Esterase Moderate H Urine RBC Urine WBC Urine WBC Clumps Many H Ur Squamous Epith Cells 4 Triple Phos Crystals Many H Urine Bacteria Moderate H Urine Mucus Many H Micro UA Comment Cath-culture ind Urine Culture Comments Cath-cult indicated Vancomycin Trough 09/19/18 09/20/18 09/20/18 23:14 06:01 06:01 WBC 7.5 RBC 3.58 L Hgb 8.1 L Hct 28.3 L MCV 79.2 L MCH 22.5 L MCHC 28.5 L RDW 18.6 H Plt Count 251 MPV 10.4 Prelim Diff (Auto) Neut % (Auto) 90.0 H Lymph % (Auto) 6.9 L Bay % (Auto) 2.9 Eos % (Auto) 0.0 Baso % (Auto) 0.2 Neut # (Auto) 6.8 Lymph # (Auto) 0.5 L Bay # (Auto) 0.2 Eos # (Auto) 0.0 Baso # (Auto) 0.0 WBC Differential . Diff Scan Differential Comment Auto diff final Toxic Vacuolation Platelet Estimate Platelet Morphology Ovalocytes Sodium 151 H D Potassium 3.3 L Chloride 121 H Carbon Dioxide 22.7 Anion Gap 7 BUN 19 H Creatinine 0.76 Estimated GFR Greater than 89 POC Glucose 186 H Random Glucose 182 H Calcium 8.2 L Magnesium 2.6 H Total Bilirubin 0.2 AST 31 ALT 24 Alkaline Phosphatase 90 Total Creatine Kinase Total Protein 8.0 Albumin 2.1 L Urine Color Urine Clarity Urine pH Ur Specific [place] Urine Protein Urine Glucose (UA) Urine Ketones Urine Occult Blood Urine Nitrate Urine Bilirubin Urine Urobilinogen Ur Leukocyte Esterase Urine RBC Urine WBC Urine WBC Clumps Ur Squamous Epith Cells Triple Phos Crystals Urine Bacteria Urine Mucus Micro UA Comment Urine Culture Comments Vancomycin Trough 09/20/18 09/20/18 09/20/18 06:01 11:49 18:02 WBC RBC Hgb Hct MCV MCH MCHC RDW Plt Count MPV Prelim Diff (Auto) Neut % (Auto) Lymph % (Auto) Bay % (Auto) Eos % (Auto) Baso % (Auto) Neut # (Auto) Lymph # (Auto) Bay # (Auto) Eos # (Auto) Baso # (Auto) WBC Differential Diff Scan Differential Comment Toxic Vacuolation Platelet Estimate Platelet Morphology Ovalocytes Sodium Potassium Chloride Carbon Dioxide Anion Gap BUN Creatinine Estimated GFR POC Glucose 195 H 176 H 176 H Random Glucose Calcium Magnesium Total Bilirubin AST ALT Alkaline Phosphatase Total Creatine Kinase Total Protein Albumin Urine Color Urine Clarity Urine pH Ur Specific [place] Urine Protein Urine Glucose (UA) Urine Ketones Urine Occult Blood Urine Nitrate Urine Bilirubin Urine Urobilinogen Ur Leukocyte Esterase Urine RBC Urine WBC Urine WBC Clumps Ur Squamous Epith Cells Triple Phos Crystals Urine Bacteria Urine Mucus Micro UA Comment Urine Culture Comments Vancomycin Trough 09/20/18 09/21/18 09/21/18 20:59 00:08 06:45 WBC RBC Hgb Hct MCV MCH MCHC RDW Plt Count MPV Prelim Diff (Auto) Neut % (Auto) Lymph % (Auto) Bay % (Auto) Eos % (Auto) Baso % (Auto) Neut # (Auto) Lymph # (Auto) Bay # (Auto) Eos # (Auto) Baso # (Auto) WBC Differential Diff Scan Differential Comment Toxic Vacuolation Platelet Estimate Platelet Morphology Ovalocytes Sodium Potassium 3.1 L Chloride Carbon Dioxide Anion Gap BUN Creatinine Estimated GFR POC Glucose 155 H 144 H Random Glucose Calcium Magnesium Total Bilirubin AST ALT Alkaline Phosphatase Total Creatine Kinase Total Protein Albumin Urine Color Urine Clarity Urine pH Ur Specific [place] Urine Protein Urine Glucose (UA) Urine Ketones Urine Occult Blood Urine Nitrate Urine Bilirubin Urine Urobilinogen Ur Leukocyte Esterase Urine RBC Urine WBC Urine WBC Clumps Ur Squamous Epith Cells Triple Phos Crystals Urine Bacteria Urine Mucus Micro UA Comment Urine Culture Comments Vancomycin Trough 09/21/18 09/21/18 09/21/18 09:45 11:26 11:26 WBC 9.6 RBC 3.91 L Hgb 8.9 L Hct 30.0 L MCV 76.7 L MCH 22.8 L MCHC 29.7 L RDW 19.0 H Plt Count 270 MPV 11.1 H Prelim Diff (Auto) Neut % (Auto) 81.3 H Lymph % (Auto) 10.5 Bay % (Auto) 7.9 Eos % (Auto) 0.0 Baso % (Auto) 0.3 Neut # (Auto) 7.8 H Lymph # (Auto) 1.0 Bay # (Auto) 0.8 Eos # (Auto) 0.0 Baso # (Auto) 0.0 WBC Differential . Diff Scan Differential Comment Auto diff final Toxic Vacuolation Platelet Estimate Platelet Morphology Ovalocytes Sodium 147 H Potassium 4.5 D Chloride 117 H Carbon Dioxide 24.7 Anion Gap 5 BUN 18 Creatinine 0.75 Estimated GFR Greater than 89 POC Glucose Random Glucose 141 H Calcium 8.2 L Magnesium Total Bilirubin 0.2 AST 25 ALT 28 Alkaline Phosphatase 90 Total Creatine Kinase 123 Total Protein 8.3 H Albumin 2.4 L Urine Color Urine Clarity Urine pH Ur Specific [place] Urine Protein Urine Glucose (UA) Urine Ketones Urine Occult Blood Urine Nitrate Urine Bilirubin Urine Urobilinogen Ur Leukocyte Esterase Urine RBC Urine WBC Urine WBC Clumps Ur Squamous Epith Cells Triple Phos Crystals Urine Bacteria Urine Mucus Micro UA Comment Urine Culture Comments Vancomycin Trough 09/21/18 09/21/18 09/21/18 12:17 16:43 17:44 WBC RBC Hgb Hct MCV MCH MCHC RDW Plt Count MPV Prelim Diff (Auto) Neut % (Auto) Lymph % (Auto) Bay % (Auto) Eos % (Auto) Baso % (Auto) Neut # (Auto) Lymph # (Auto) Bay # (Auto) Eos # (Auto) Baso # (Auto) WBC Differential Diff Scan Differential Comment Toxic Vacuolation Platelet Estimate Platelet Morphology Ovalocytes Sodium 145 Potassium 4.6 Chloride 116 H Carbon Dioxide 22.6 Anion Gap 6 BUN 19 H Creatinine 0.73 Estimated GFR Greater than 89 POC Glucose 150 H 141 H Random Glucose 151 H Calcium 7.8 L Magnesium 2.3 Total Bilirubin 0.3 AST 37 ALT 28 Alkaline Phosphatase 87 Total Creatine Kinase Total Protein 7.9 Albumin 2.2 L Urine Color Urine Clarity Urine pH Ur Specific [place] Urine Protein Urine Glucose (UA) Urine Ketones Urine Occult Blood Urine Nitrate Urine Bilirubin Urine Urobilinogen Ur Leukocyte Esterase Urine RBC Urine WBC Urine WBC Clumps Ur Squamous Epith Cells Triple Phos Crystals Urine Bacteria Urine Mucus Micro UA Comment Urine Culture Comments Vancomycin Trough 10.2 H 09/21/18 09/22/18 09/22/18 23:26 05:09 05:09 WBC 7.5 RBC 3.59 L Hgb 8.2 L Hct 27.6 L MCV 77.1 L MCH 22.8 L MCHC 29.6 L RDW 18.3 H Plt Count 228 MPV 11.0 Prelim Diff (Auto) Slide review pending Neut % (Auto) 83.8 H Lymph % (Auto) 9.2 Bay % (Auto) 6.5 Eos % (Auto) 0.0 Baso % (Auto) 0.5 Neut # (Auto) 6.3 Lymph # (Auto) 0.7 L Bay # (Auto) 0.5 Eos # (Auto) 0.0 Baso # (Auto) 0.0 WBC Differential . Diff Scan Auto diff confirmed Differential Comment . Toxic Vacuolation Present H Platelet Estimate Normal Platelet Morphology Enlarged H Ovalocytes 1+ H Sodium 148 H Potassium 3.8 D Chloride 118 H Carbon Dioxide 23.0 Anion Gap 7 BUN 20 H Creatinine 0.72 Estimated GFR Greater than 89 POC Glucose 142 H Random Glucose 138 H Calcium 8.0 L Magnesium 2.5 Total Bilirubin 0.3 AST 39 H ALT 36 Alkaline Phosphatase 85 Total Creatine Kinase Total Protein 7.5 Albumin 2.2 L Urine Color Urine Clarity Urine pH Ur Specific [place] Urine Protein Urine Glucose (UA) Urine Ketones Urine Occult Blood Urine Nitrate Urine Bilirubin Urine Urobilinogen Ur Leukocyte Esterase Urine RBC Urine WBC Urine WBC Clumps Ur Squamous Epith Cells Triple Phos Crystals Urine Bacteria Urine Mucus Micro UA Comment Urine Culture Comments Vancomycin Trough 09/22/18 09/22/18 05:20 11:08 WBC RBC Hgb Hct MCV MCH MCHC RDW Plt Count MPV Prelim Diff (Auto) Neut % (Auto) Lymph % (Auto) Bay % (Auto) Eos % (Auto) Baso % (Auto) Neut # (Auto) Lymph # (Auto) Bay # (Auto) Eos # (Auto) Baso # (Auto) WBC Differential Diff Scan Differential Comment Toxic Vacuolation Platelet Estimate Platelet Morphology Ovalocytes Sodium Potassium Chloride Carbon Dioxide Anion Gap BUN Creatinine Estimated GFR POC Glucose 142 H 143 H Random Glucose Calcium Magnesium Total Bilirubin AST ALT Alkaline Phosphatase Total Creatine Kinase Total Protein Albumin Urine Color Urine Clarity Urine pH Ur Specific [place] Urine Protein Urine Glucose (UA) Urine Ketones Urine Occult Blood Urine Nitrate Urine Bilirubin Urine Urobilinogen Ur Leukocyte Esterase Urine RBC Urine WBC Urine WBC Clumps Ur Squamous Epith Cells Triple Phos Crystals Urine Bacteria Urine Mucus Micro UA Comment Urine Culture Comments Vancomycin Trough Result Diagrams: 09/22/18 05:09 09/22/18 05:09 Microbiology: Microbiology 09/19/18 12:30 Gram Stain - Final Sputum - Endotracheal Sputum Culture - Final Light growth normal respiratory michelle 09/18/18 18:45 Aerobic Blood Culture - Preliminary Blood - Peripheral No growth in 4 days Anaerobic Blood Culture - Preliminary No growth in 4 days 09/18/18 18:55 Aerobic Blood Culture - Preliminary Blood - Peripheral No growth in 4 days Anaerobic Blood Culture - Preliminary No growth in 4 days 09/18/18 18:35 Urine Culture - Final Catheterized Urine Proteus mirabilis Providencia stuartii Imaging: Head CT 09/18/18 18:40 CONCLUSION: 1. Stable appearance of the brain. Marked ventriculomegaly and white matter disease. . Chest CTA 09/18/18 19:26 CONCLUSION: 1. There is no evidence for pulmonary embolism. 2. Severe emphysema. 3. There is a large soft tissue mass in the right lower lobe suspicious for malignancy until proven otherwise. Venous Doppler Study 09/21/18 00:00 CONCLUSION: 1. There is occlusive thrombus within the right cephalic and brachial veins. Chest X-Ray 09/22/18 05:00 CONCLUSION: Unchanged bibasilar consolidation particularly on the right. Procedures: * 09/18/18 - intubated Assessment and Plan - Disease Oriented Problem List (1) UTI (urinary tract infection) (2) Respiratory failure (3) Lung mass (4) Emphysema lung (5) Lactic acidemia (6) Dehydration (7) Hypertension (8) Diabetes (9) Hypernatremia - Symptom Scale (1) Pain 0-10 Scale: 0 (2) Dyspnea 0-10 Scale: 0 Pertinent Non-Medical Issues: Psychosocial: . Has 2 daughters, Brea (lives [facility]) and Erica ( lives [place]). Spiritual: Unknown. Legal:No known written advanced directives. Patient is not capacitated to make her own healthcare decisions, will not likely regain capacity. . Has 2 adult daughters. According to [place] [employer] healthcare proxy decision making falls to her spouse, Nazario Marrufo. Ethical issues impacting care: No known concerns at this time. Important Contacts: * Nazario Marrufo, spouse/HCP: [phone] * Brea Potts, daughter: [phone] or [phone] Prognosis: Overall prognosis is poor in this 68-year-old long term dependent patient with end-stage stroke with residual hemiparesis, dysphagia, inability to communicate on tube feeding, bedbound at baseline. Now with 8 x 5 cm right lower lobe mass suspicious for malignancy. Patient not likely a candidate for surgical or chemotherapy. Overall prognosis poor. Code Status: Full Code Plan: * No known written advanced directives. Patient is not capacitated to make her own healthcare decisions, will not likely regain capacity. . Has 2 adult daughters. According to [place] [employer] healthcare proxy decision making falls to her spouse, Nazario Marrufo. * FULL CODE -spouse revoked [place] DNR order on admission. * Family desires continued aggressive care including FULL CODE. Family verbalized to other providers not wanting to pursue lung biopsy at this time. * SYMPTOMS: Dyspnea: Secondary to emphysema, resp failure, on mech vent. Pain: due to tubes, resp failure, wound. On Propofol drip for vent synchrony. No new medication recommendations at this time. * Palliative care will continue to follow throughout hospital course to assist with symptom management further clarification of goals of medical treatment as needed. Attestation Attestation: To help prompt me to consider important information that might be impacting today's encounter and assessment, information from prior notes written by myself or my colleagues may have been "brought forward" into today's note. My signature on this note, however, is an attestation that I personally performed the exam, history, and/or decision-making noted today, and, unless otherwise indicated, the interactions with patient, family, and staff as well as the review of records all occurred today. I also attest that the listed assessment and stated plan reflect my best clinical judgment today based on the combination of historical information, prior notes, and today's exam/ interactions. When time spent is documented, it refers only to time spent today by the signer, or if indicated, combined time spent today by collaborating physician/nurse practitioner.
--- NOTE | 2018-09-22 17:08 | P.PNPL ---
Subjective Interval history: 68 YOAA female who was with Hospice svc, now rescended On Vent Daughter at , she dw her step father and do not want any lung bx Sedated No fever Physical Exam Vital signs: Vital Signs 09/21/18 18:00 09/21/18 19:46 09/21/18 20:00 Temperature 98.8 F Pulse Rate 87 77 74 Respiratory Rate 16 16 Blood Pressure 146/65 H Pulse Oximetry 100 100 09/21/18 22:00 09/21/18 23:27 09/22/18 00:00 Temperature 98.4 F Pulse Rate 71 69 73 Respiratory Rate 16 16 Blood Pressure 161/70 H Pulse Oximetry 100 09/22/18 01:20 09/22/18 02:00 09/22/18 04:00 Temperature 98.8 F Pulse Rate 93 H 86 Respiratory Rate 16 16 Blood Pressure 153/68 H Pulse Oximetry 100 100 09/22/18 04:05 09/22/18 06:00 09/22/18 06:01 Temperature 98.2 F 98.2 F Pulse Rate 84 71 75 Respiratory Rate 16 16 16 Blood Pressure 169/73 H Pulse Oximetry 100 100 100 09/22/18 06:30 09/22/18 07:00 09/22/18 07:30 Temperature 98.2 F 98.2 F 98.2 F Pulse Rate 73 69 68 Respiratory Rate 16 16 16 Blood Pressure 150/67 H 161/72 H 157/68 H Pulse Oximetry 100 100 100 09/22/18 08:00 09/22/18 08:17 09/22/18 08:18 Temperature 98.4 F Pulse Rate 69 77 Respiratory Rate 16 14 16 Blood Pressure 152/70 H Pulse Oximetry 99 100 09/22/18 08:30 09/22/18 08:49 09/22/18 09:00 Temperature 98.4 F 98.2 F Pulse Rate 85 95 H Respiratory Rate 19 20 Blood Pressure 165/72 H Pulse Oximetry 99 99 98 09/22/18 09:01 09/22/18 09:31 09/22/18 10:00 Temperature 98.2 F 98.2 F 98.2 F Pulse Rate 96 H 93 H 92 H Respiratory Rate 17 28 H 20 Blood Pressure 135/63 172/69 H 162/70 H Pulse Oximetry 99 100 100 09/22/18 10:30 09/22/18 11:00 09/22/18 11:01 Temperature 98.6 F 98.8 F 98.8 F Pulse Rate 84 91 H 91 H Respiratory Rate 19 37 H 35 H Blood Pressure 174/72 H 168/70 H Pulse Oximetry 99 96 100 09/22/18 11:30 09/22/18 11:37 09/22/18 12:00 Temperature 98.1 F 98.2 F Pulse Rate 87 86 85 Respiratory Rate 24 24 17 Blood Pressure 186/76 H 178/79 H Pulse Oximetry 100 100 100 09/22/18 12:30 09/22/18 13:00 09/22/18 13:30 Temperature 98.4 F 98.4 F 98.4 F Pulse Rate 85 81 80 Respiratory Rate 18 18 22 Blood Pressure 184/75 H 169/79 H 184/75 H Pulse Oximetry 98 98 99 09/22/18 14:00 09/22/18 14:30 09/22/18 15:00 Temperature 98.4 F 98.6 F 98.8 F Pulse Rate 81 78 75 Respiratory Rate 26 H 16 20 Blood Pressure 157/70 H 162/70 H Pulse Oximetry 100 100 99 09/22/18 15:03 09/22/18 15:30 09/22/18 16:00 Temperature 98.8 F 98.8 F 99.0 F Pulse Rate 82 83 83 Respiratory Rate 25 H 16 16 Blood Pressure 126/56 L 134/64 125/60 Pulse Oximetry 98 100 100 Intake & Output 09/21/18 09/22/18 09/22/18 18:59 06:59 18:59 Intake Total 2100 / 2100 1039.5 / 1039.5 1812.5 / 1812.5 Output Total 1150 / 1150 1500 / 1500 Balance 950 / 950 -460.5 / -460.5 1812.5 / 1812.5 Weight 63 kg Intake: IV 1500 / 1500 462.5 / 462.5 1812.5 / 1812.5 Diprivan 1000 mg/100 ml Inj 1, 100 / 100 000 mg In 100 ml @ 5 MCG/KG/MIN 2.041 mls/hr IV.CONT TITRATE PRN Rx#:[id number] 1/2 Normal Saline Inj 1,000 ML 1000 / 1000 1350 / 1350 @ 50 mls/hr IV.CONT .Q20H JORGE Rx#:[id number] Zosyn 4.5 GM Premix 4.5 gm In 200 / 200 200 / 200 200 / 200 100 ml @ 200 mls/hr IV.SIG Q6H JORGE Rx#:[id number] KCl 20 mEq Premix Inj 20 meq In 200 / 200 100 ml @ 50 mls/hr IV.SIG Q2H PRN Rx#:[id number] Vancomycin Inj 1,250 MG In NS 262.5 / 262.5 262.5 / 262.5 Inj 250 ML @ 250 mls/hr IV.SIG Q18H JORGE Rx#:[id number] Oral 0 / 0 Tube Feeding 500 / 500 477 / 477 Tube Irrigant 100 / 100 Water Bolus Amount 100 / 100 Output: Urine 1400 / 1400 Stool 200 / 200 100 / 100 Urine Amount (Catheter) 950 / 950 Indwelling Temp Sensing 950 / 950 Catheter Other: Date of Last Bowel Movement 09/21/18 09/21/18 GENERAL: Elderly AA female on vent SKIN: Warm and dry. HEAD: Normocephalic. EYES: No scleral icterus. No injection or drainage. NECK: Supple, trachea midline. No JVD or lymphadenopathy. CARDIOVASCULAR: Regular rate and rhythm without murmurs, gallops, or rubs. RESPIRATORY: Breath sounds equal bilaterally. No accessory muscle use. GASTROINTESTINAL: Abdomen soft, non-tender, nondistended. MUSCULOSKELETAL: No cyanosis, or edema. left BKA BACK: Nontender without obvious deformity. No CVA tenderness. - Urinary Catheter Management Indwelling Temp Sensing Catheter Cath placed during this visit: yes Reason for continuing: Severe pressure ulcer/wound Insertion date: 09/18/18 Insertion time: 18:50 Assessment and Plan - Plan IMPRESSION: VDRF large Rt lung mass COPD HTN H/O CVA PLAN: Cont vent support Aerosol nebs IV Solumedrol Cont Abx DW Daughter at BS , does want any lung bx CPAp Trial DW .
[2018-09-22] MEDS: Propofol 1000 mg/100 ml Inj 1,000 MG/100 ML BOTTLE IV.CONT PRN (18:05)
[2018-09-23] MEDS: Insulin NovoLIN Regular Correctional Sugar Inj SQ SCH ×5 (00:03→23:47)
[2018-09-23] MEDS: Oral Hygiene Kit OROPHARYNG SCH ×5 (00:04→23:47)
[2018-09-23] MEDS: Piperacil/Tazo 4.5 GM Premix 4.5 GM/100 ML BAG IV.SIG SCH ×4 (01:43→18:19)
[2018-09-23] MEDS: Chlorhexidine Gluconate 2% 1 Pack (2 Cloths) TOPICAL SCH (04:25)
[2018-09-23] MEDS: dilTIAZem 60 MG Tablet PO SCH ×4 (04:25→20:37)
[2018-09-23] MEDS ORDERED: Pharmacy Ordered Lab Info OTHER ONE (05:45)
[2018-09-23] MEDS: Vancomycin Inj 1,250 MG in Sodium Chlor 0.9% Inj 250 ML IV.SIG SCH ×2 (06:35→23:46)
[2018-09-23] MEDS: Propofol 1000 mg/100 ml Inj 1,000 MG/100 ML BOTTLE IV.CONT PRN ×3 (06:36→20:35)
[2018-09-23 07:40] LABS: Baso % (Auto) 0.1 % (0.0-2.0); Lymph # (Auto) 0.9 th/mm3 (1.0-4.8); Lymph % (Auto) 10.6 % (9.0-44.0); Mean Corpuscular Hemoglobin 22.9 pg (27.0-34.0); Mean Corpuscular Volume 76.6 fL (80.0-100.0); Mean Platelet Volume 10.8 fL (7.0-11.0); Mono # (Auto) 0.5 th/mm3 (0.0-0.9); Mono % (Auto) 6.2 % (0.0-8.0); Neut # (Auto) 7.3 th/mm3 (1.8-7.7); Neut % (Auto) 83.1 % (16.0-70.0); Platelet Count 249 th/mm3 (150-450); Red Blood Count 3.92 mil/mm3 (4.00-5.30); Red Cell Distribution Width 18.6 % (11.6-17.2); White Blood Count 8.8 th/mm3 (4.0-11.0)
[2018-09-23 07:57] LABS: Albumin 2.4 g/dL (3.4-5.0); Anion Gap 7 meq/L (5-15); Aspartate Aminotransferase 43 U/L (15-37); Blood Urea Nitrogen 22 mg/dL (7-18); Calcium 8.2 mg/dL (8.5-10.1); Chloride 113 meq/L (98-107); Glomerular Filtration Rate 82 mL/min (>89); Glucose,Random 139 mg/dL (74-106); Potassium 3.6 meq/L (3.5-5.1); Sodium 146 meq/L (136-145)
[2018-09-23 08:00] LABS: Alanine Aminotransferase 63 U/L (10-53); Alkaline Phosphatase 91 U/L (45-117); Total Protein 7.6 g/dL (6.4-8.2); Vancomycin,Trough 17.3 mcg/mL (5.0-10.0)
[2018-09-23 08:05] LABS: Mean Corpuscular HGB Conc 29.9 % (32.0-36.0)
[2018-09-23] MEDS: Metoprolol Tartrate 100 MG Tablet G-TUBE SCH ×2 (08:38→20:37)
[2018-09-23] MEDS: Senna/Docusate Sodium 8.6/50 MG Tablet PO SCH ×2 (08:38→20:37)
[2018-09-23] MEDS: Enoxaparin Inj 60 MG/0.6 ML Syringe SQ SCH ×2 (08:38→20:37)
[2018-09-23] MEDS: Chlorhexidine 0.12% Oral Kit 15 ML UDC OROPHARYNG SCH ×2 (08:39→20:36)
[2018-09-23] MEDS: MethylPREDNISolone Sod Succinate Inj 40 MG/ML Vial IV.PUSH SCH ×2 (08:39→20:37)
[2018-09-23] MEDS: Famotidine PF Inj 20 MG/2 ML Vial IV.PUSH SCH ×2 (08:39→20:37)
[2018-09-23 09:18] LABS: Ovalocytes 1+; Platelet Estimate Normal (Normal); Tear Drop Cells 1+
--- NOTE | 2018-09-23 16:43 | P.PNPL ---
Subjective Interval history: 68 YOAA female who was with Hospice svc, now rescended On Vent Daughter at , she dw her step father and do not want any lung bx Sedated No fever Family not sure if they would want trach if needed Physical Exam Vital signs: Vital Signs 09/22/18 17:11 09/22/18 17:14 09/22/18 20:00 Temperature 98.4 F Pulse Rate 87 82 Respiratory Rate 16 16 16 Blood Pressure 138/62 Pulse Oximetry 100 100 09/22/18 21:09 09/22/18 22:00 09/22/18 23:00 Temperature 99.0 F Pulse Rate 79 84 87 Respiratory Rate 16 26 H Blood Pressure 162/74 H Pulse Oximetry 100 09/22/18 23:30 09/23/18 00:00 09/23/18 00:30 Temperature 99.1 F 99.1 F 99.1 F Pulse Rate 85 81 77 Respiratory Rate 2 L 1 L 6 L Blood Pressure 166/74 H 162/73 H 163/71 H Pulse Oximetry 98 100 100 09/23/18 01:00 09/23/18 01:30 09/23/18 02:00 Temperature 99.1 F 99.1 F 99.1 F Pulse Rate 75 73 73 Respiratory Rate 6 L 9 L 3 L Blood Pressure 161/72 H 157/71 H 153/69 H Pulse Oximetry 100 100 100 09/23/18 02:30 09/23/18 03:00 09/23/18 03:30 Temperature 99.0 F 99.0 F 99.0 F Pulse Rate 82 85 79 Respiratory Rate 36 H 16 16 Blood Pressure 141/68 H 144/67 H 135/64 Pulse Oximetry 99 100 100 09/23/18 03:54 09/23/18 03:55 09/23/18 04:00 Temperature 99.0 F Pulse Rate 76 75 Respiratory Rate 15 16 16 Blood Pressure 142/64 H Pulse Oximetry 100 100 09/23/18 04:30 09/23/18 05:00 09/23/18 05:30 Temperature 99.0 F 98.8 F 98.8 F Pulse Rate 80 82 79 Respiratory Rate 16 16 16 Blood Pressure 129/61 137/63 136/63 Pulse Oximetry 100 100 100 09/23/18 06:00 09/23/18 06:30 09/23/18 07:00 Temperature 98.8 F 99.0 F 99.0 F Pulse Rate 75 82 84 Respiratory Rate 16 16 17 Blood Pressure 144/65 H 150/67 H 129/67 Pulse Oximetry 100 100 100 09/23/18 07:30 09/23/18 08:00 09/23/18 08:27 Temperature Pulse Rate 82 82 79 Respiratory Rate 16 16 26 H Blood Pressure 143/66 H 155/70 H Pulse Oximetry 100 100 100 09/23/18 08:30 09/23/18 09:00 09/23/18 09:30 Temperature Pulse Rate 89 87 81 Respiratory Rate 37 H 16 16 Blood Pressure 166/74 H 143/65 H 132/61 Pulse Oximetry 98 100 100 09/23/18 10:00 09/23/18 10:30 09/23/18 11:00 Temperature 97.9 F Pulse Rate 80 72 70 Respiratory Rate 16 16 16 Blood Pressure 133/60 132/61 134/61 Pulse Oximetry 100 100 100 09/23/18 11:30 09/23/18 12:00 09/23/18 12:11 Temperature 98.4 F Pulse Rate 70 71 Respiratory Rate 16 16 16 Blood Pressure 143/65 H 138/63 Pulse Oximetry 100 100 100 09/23/18 12:30 09/23/18 13:00 09/23/18 13:30 Temperature Pulse Rate 72 75 72 Respiratory Rate 16 16 16 Blood Pressure 135/61 132/61 134/60 Pulse Oximetry 100 100 100 09/23/18 14:00 09/23/18 14:30 Temperature Pulse Rate 80 76 Respiratory Rate 16 16 Blood Pressure 122/58 L 137/63 Pulse Oximetry 100 99 Intake & Output 09/22/18 09/23/18 09/23/18 18:59 06:59 18:59 Intake Total 2594.5 / 2594.5 1379 / 1379 300 / 300 Output Total 1200 / 1200 1200 / 1200 Balance 1394.5 / 1394.5 179 / 179 300 / 300 Weight 61.7 kg Intake: IV 1912.5 / 1912.5 300 / 300 300 / 300 Diprivan 1000 mg/100 ml Inj 1, 100 / 100 100 / 100 100 / 100 000 mg In 100 ml @ 5 MCG/KG/MIN 2.041 mls/hr IV.CONT TITRATE PRN Rx#:[id number] 1/2 Normal Saline Inj 1,000 ML 1350 / 1350 @ 50 mls/hr IV.CONT .Q20H JORGE Rx#:[id number] Zosyn 4.5 GM Premix 4.5 gm In 200 / 200 200 / 200 200 / 200 100 ml @ 200 mls/hr IV.SIG Q6H JORGE Rx#:[id number] Vancomycin Inj 1,250 MG In NS 262.5 / 262.5 Inj 250 ML @ 250 mls/hr IV.SIG Q18H JORGE Rx#:[id number] Tube Feeding 482 / 482 679 / 679 Water Bolus Amount 200 / 200 400 / 400 Output: Stool 150 / 150 600 / 600 Urine Amount (Catheter) 1050 / 1050 600 / 600 Indwelling Temp Sensing 1050 / 1050 600 / 600 Catheter Other: Date of Last Bowel Movement 09/22/18 09/23/18 09/23/18 GENERAL: Elderly AA female, on Vent SKIN: Warm and dry. HEAD: Normocephalic. EYES: No scleral icterus. No injection or drainage. NECK: Supple, trachea midline. No JVD or lymphadenopathy. CARDIOVASCULAR: Regular rate and rhythm without murmurs, gallops, or rubs. RESPIRATORY: Breath sounds equal bilaterally. No accessory muscle use. GASTROINTESTINAL: Abdomen soft, non-tender, nondistended. MUSCULOSKELETAL: No cyanosis, or edema. Left BKA BACK: Nontender without obvious deformity. No CVA tenderness. - Urinary Catheter Management Indwelling Temp Sensing Catheter Cath placed during this visit: yes Reason for continuing: Severe pressure ulcer/wound Insertion date: 09/18/18 Insertion time: 18:50 Assessment and Plan - Plan IMPRESSION: VDRF large Rt lung mass COPD HTN H/O CVA PLAN: Cont vent support Aerosol nebs IV Solumedrol Cont Abx DW Daughter at , does want any lung bx at this time. DW .
--- NOTE | 2018-09-23 20:05 | P.PNCC ---
Subjective Subjective Remarks/Hospital Course: 09/18: 68-year-old female past medical history of stroke, left BKA, who was on home hospice until just prior to arrival, presents for an evaluation of fever and altered mental status. According to EMS the patient had not required oxygen until beginning of this week when she had gradual increased demand of her oxygen. End-tidal CO2 prior to arrival was 6. Initial room nasal cannula saturation was 91, she was placed on nonrebreather position of comfort and transfer to emergency department. EMS related that the had elected to revoke the patient's DNR and hospice care prior to transferring her to the hospital. The patient apparently is normally a GCS of 14, apparently she does take some thickened food p.o. department the patient was severely altered with GCS of 6 on arrival E4V1M1 and was intubated by ED attending for an airway protection. 09/19: Remains sedated, orally intubated on mechanical ventilation. CT chest showed right lower lobe lung mass suspicious for malignancy. Patient has a PEG tube following previous stroke. 09/20: Remains sedated, orally intubated on mechanical ventilation. Started on tube feeds. 09/21: Remains sedated, orally intubated on mechanical ventilation. Tolerating tube feeds. Right approximately swelling noted. 09/22 Is not tolerating CPAP trial when decrease PS below 18. Daughter at bedside, says will be here later. Says they don't think they want to proceed with lung biopsy at this time, but on the other hand she discusses the possibility of re-do trach. She says they are not sure how to proceed. I suggested we meet together. Daughter states she has been bedridden since stroke about 4 years ago. Has been in jail. PEG due to dysphagia, does not eat. Speaks a little but daughter states she has declined significantly over the last 2 weeks. Subjective: 09/23 No significant change. Patient does not tolerate CPAP. Family is very clear that they do not wish to pursue biopsy or diagnosis of suspected lung cancer. At this time, they wish to continue supportive care with vent and FULL CODE. Objective Vital Signs / I&O: Vital Signs 09/22/18 21:09 09/22/18 22:00 09/22/18 23:00 Temperature 99.0 F Pulse Rate 79 84 87 Respiratory Rate 16 26 H Blood Pressure 162/74 H Pulse Oximetry 100 09/22/18 23:30 09/23/18 00:00 09/23/18 00:30 Temperature 99.1 F 99.1 F 99.1 F Pulse Rate 85 81 77 Respiratory Rate 2 L 1 L 6 L Blood Pressure 166/74 H 162/73 H 163/71 H Pulse Oximetry 98 100 100 09/23/18 01:00 09/23/18 01:30 09/23/18 02:00 Temperature 99.1 F 99.1 F 99.1 F Pulse Rate 75 73 73 Respiratory Rate 6 L 9 L 3 L Blood Pressure 161/72 H 157/71 H 153/69 H Pulse Oximetry 100 100 100 09/23/18 02:30 09/23/18 03:00 09/23/18 03:30 Temperature 99.0 F 99.0 F 99.0 F Pulse Rate 82 85 79 Respiratory Rate 36 H 16 16 Blood Pressure 141/68 H 144/67 H 135/64 Pulse Oximetry 99 100 100 09/23/18 03:54 09/23/18 03:55 09/23/18 04:00 Temperature 99.0 F Pulse Rate 76 75 Respiratory Rate 15 16 16 Blood Pressure 142/64 H Pulse Oximetry 100 100 09/23/18 04:30 09/23/18 05:00 09/23/18 05:30 Temperature 99.0 F 98.8 F 98.8 F Pulse Rate 80 82 79 Respiratory Rate 16 16 16 Blood Pressure 129/61 137/63 136/63 Pulse Oximetry 100 100 100 09/23/18 06:00 09/23/18 06:30 09/23/18 07:00 Temperature 98.8 F 99.0 F 99.0 F Pulse Rate 75 82 84 Respiratory Rate 16 16 17 Blood Pressure 144/65 H 150/67 H 129/67 Pulse Oximetry 100 100 100 09/23/18 07:30 09/23/18 08:00 09/23/18 08:27 Temperature Pulse Rate 82 82 79 Respiratory Rate 16 16 26 H Blood Pressure 143/66 H 155/70 H Pulse Oximetry 100 100 100 09/23/18 08:30 09/23/18 09:00 09/23/18 09:30 Temperature Pulse Rate 89 87 81 Respiratory Rate 37 H 16 16 Blood Pressure 166/74 H 143/65 H 132/61 Pulse Oximetry 98 100 100 09/23/18 10:00 09/23/18 10:30 09/23/18 11:00 Temperature 97.9 F Pulse Rate 80 72 70 Respiratory Rate 16 16 16 Blood Pressure 133/60 132/61 134/61 Pulse Oximetry 100 100 100 09/23/18 11:30 09/23/18 12:00 09/23/18 12:11 Temperature 98.4 F Pulse Rate 70 71 Respiratory Rate 16 16 16 Blood Pressure 143/65 H 138/63 Pulse Oximetry 100 100 100 09/23/18 12:30 09/23/18 13:00 09/23/18 13:30 Temperature Pulse Rate 72 75 72 Respiratory Rate 16 16 16 Blood Pressure 135/61 132/61 134/60 Pulse Oximetry 100 100 100 09/23/18 14:00 09/23/18 14:30 09/23/18 15:00 Temperature Pulse Rate 80 76 82 Respiratory Rate 16 16 16 Blood Pressure 122/58 L 137/63 128/58 L Pulse Oximetry 100 99 97 09/23/18 15:30 09/23/18 16:00 09/23/18 16:30 Temperature 98.4 F Pulse Rate 80 84 80 Respiratory Rate 17 16 16 Blood Pressure 104/56 L 113/56 L 115/55 L Pulse Oximetry 99 98 99 09/23/18 17:00 09/23/18 18:00 Temperature Pulse Rate 75 72 Respiratory Rate 16 Blood Pressure 104/56 L Pulse Oximetry 99 Intake & Output 09/23/18 09/23/18 09/24/18 06:59 18:59 06:59 Intake Total 1379 / 1379 1548.5 / 1548.5 Output Total 1200 / 1200 600 / 600 Balance 179 / 179 948.5 / 948.5 Weight 61.7 kg Intake: IV 300 / 300 562.5 / 562.5 Diprivan 1000 mg/100 ml Inj 1, 100 / 100 100 / 100 000 mg In 100 ml @ 5 MCG/KG/MIN 2.041 mls/hr IV.CONT TITRATE PRN Rx#:[id number] Zosyn 4.5 GM Premix 4.5 gm In 200 / 200 200 / 200 100 ml @ 200 mls/hr IV.SIG Q6H JORGE Rx#:[id number] Vancomycin Inj 1,250 MG In NS 262.5 / 262.5 Inj 250 ML @ 250 mls/hr IV.SIG Q18H JORGE Rx#:[id number] Oral 0 / 0 Tube Feeding 679 / 679 586 / 586 Water Bolus Amount 400 / 400 400 / 400 Output: Stool 600 / 600 200 / 200 Urine Amount (Catheter) 600 / 600 400 / 400 Indwelling Temp Sensing 600 / 600 400 / 400 Catheter Other: # Voids 1 Date of Last Bowel Movement 09/23/18 09/23/18 Result Diagrams: 09/23/18 06:13 09/23/18 06:13 Objective Remarks: GENERAL: Well-nourished, well-developed patient who is orotracheally intubated. SKIN: Warm and dry. HEAD: Atraumatic. Normocephalic. EYES: Pupils equal and round. No scleral icterus. No injection or drainage. ENT: No nasal bleeding or discharge. Mucous membranes pink and moist. NECK: Trachea midline. No JVD. CARDIOVASCULAR: Regular rate and rhythm. No murmurs rubs or gallops. RESPIRATORY: Orotracheally intubated on mechanical ventilation. Rhonchorous breath sounds. No wheeze or rales. GASTROINTESTINAL: Abdomen soft, non-tender, nondistended. PEG in place, aspirated gastric contents, flushes easily. OGT in place with feeds running.. MUSCULOSKELETAL: Extremities without clubbing, cyanosis, or edema. s/p L AKA. NEUROLOGICAL: Awakens, looks around. Assessment and Plan - Assessment and Plan Plan: NEURO: History of stroke Propofol for sedation RESP: Acute respiratory failure on mechanical ventilation Emphysema Lung mass History of prior trach after stroke, has been subsequently decannulated Discussed with daughter and Dr. De Jesus. not wishing to pursue CT-guided biopsy. Daily CPAP trials. Vent bundle/nebs. Mechanical ventilation day #6. I have discussed comfort care vs trach with family. Their wishes are unclear as of now. CV: HTN Monitor BP//heart rate. Continue metoprolol 100 bid. Continue cardizem 60q6. GI: PEG in place. Glucerna tube feeds. FEN/RENAL: Acute hypernatremia Hypokalemia Give free water flushes via PEG. ID: HCAP UTI Urine culture from 09/18 with providentia and Proteus. Urine and sputum cultures negative On zosyn since 09/18 #6. Will d/c following 7 day course. HEME: R brachial DVT Lovenox 60 mg subcu every 12 hours. ENDO: Diabetes mellitus Insulin sliding scale PROPH: SCD/Lovenox for DVT prophylaxis. Famotidine for stress ulcer prophylaxis. ACCESS: PIV x2. Full code Level 3 followup.
[2018-09-24] MEDS: Piperacil/Tazo 4.5 GM Premix 4.5 GM/100 ML BAG IV.SIG SCH ×4 (01:17→18:52)
[2018-09-24] MEDS: dilTIAZem 60 MG Tablet PO SCH ×4 (04:07→20:18)
[2018-09-24] MEDS: Oral Hygiene Kit OROPHARYNG SCH ×4 (05:27→23:49)
[2018-09-24] MEDS: Insulin NovoLIN Regular Correctional Sugar Inj SQ SCH ×4 (05:27→23:49)
[2018-09-24] MEDS: Propofol 1000 mg/100 ml Inj 1,000 MG/100 ML BOTTLE IV.CONT PRN ×3 (06:24→23:50)
[2018-09-24 07:43] LABS: Baso % (Auto) 0.1 % (0.0-2.0); Hematocrit 30.4 % (35.0-46.0); Hemoglobin 9.1 gm/dL (11.6-15.3); Lymph # (Auto) 0.5 th/mm3 (1.0-4.8); Lymph % (Auto) 5.7 % (9.0-44.0); Mean Corpuscular Hemoglobin 23.1 pg (27.0-34.0); Mean Corpuscular Volume 77.3 fL (80.0-100.0); Mono # (Auto) 0.3 th/mm3 (0.0-0.9); Mono % (Auto) 3.1 % (0.0-8.0); Neut # (Auto) 7.3 th/mm3 (1.8-7.7); Neut % (Auto) 91.1 % (16.0-70.0); Platelet Count 247 th/mm3 (150-450); Red Blood Count 3.93 mil/mm3 (4.00-5.30); Red Cell Distribution Width 19.1 % (11.6-17.2)
[2018-09-24 07:54] LABS: Mean Corpuscular HGB Conc 29.9 % (32.0-36.0)
[2018-09-24 07:59] LABS: Alanine Aminotransferase 65 U/L (10-53); Albumin 2.2 g/dL (3.4-5.0); Anion Gap 7 meq/L (5-15); Aspartate Aminotransferase 37 U/L (15-37); Blood Urea Nitrogen 22 mg/dL (7-18); Calcium 8.3 mg/dL (8.5-10.1); Carbon Dioxide 26.3 meq/L (21.0-32.0); Chloride 111 meq/L (98-107); Glomerular Filtration Rate 86 mL/min (>89); Glucose,Random 167 mg/dL (74-106); Potassium 3.7 meq/L (3.5-5.1); Sodium 144 meq/L (136-145)
[2018-09-24 08:01] LABS: Alkaline Phosphatase 87 U/L (45-117); Total Protein 7.3 g/dL (6.4-8.2)
[2018-09-24] MEDS: MethylPREDNISolone Sod Succinate Inj 40 MG/ML Vial IV.PUSH SCH (08:31)
[2018-09-24] MEDS: Enoxaparin Inj 60 MG/0.6 ML Syringe SQ SCH ×2 (08:31→20:19)
[2018-09-24] MEDS: Senna/Docusate Sodium 8.6/50 MG Tablet PO SCH ×2 (08:32→20:20)
[2018-09-24] MEDS: Metoprolol Tartrate 100 MG Tablet G-TUBE SCH ×2 (08:32→20:19)
[2018-09-24] MEDS: Famotidine PF Inj 20 MG/2 ML Vial IV.PUSH SCH ×2 (08:32→20:19)
[2018-09-24] MEDS: Chlorhexidine 0.12% Oral Kit 15 ML UDC OROPHARYNG SCH ×2 (08:32→20:18)
--- NOTE | 2018-09-24 12:25 | P.PNCC ---
Subjective Subjective Remarks/Hospital Course: 09/18: 68-year-old female past medical history of stroke, left BKA, who was on home hospice until just prior to arrival, presents for an evaluation of fever and altered mental status. According to EMS the patient had not required oxygen until beginning of this week when she had gradual increased demand of her oxygen. End-tidal CO2 prior to arrival was 6. Initial room nasal cannula saturation was 91, she was placed on nonrebreather position of comfort and transfer to emergency department. EMS related that the had elected to revoke the patient's DNR and hospice care prior to transferring her to the hospital. The patient apparently is normally a GCS of 14, apparently she does take some thickened food p.o. department the patient was severely altered with GCS of 6 on arrival E4V1M1 and was intubated by ED attending for an airway protection. 09/19: Remains sedated, orally intubated on mechanical ventilation. CT chest showed right lower lobe lung mass suspicious for malignancy. Patient has a PEG tube following previous stroke. 09/20: Remains sedated, orally intubated on mechanical ventilation. Started on tube feeds. 09/21: Remains sedated, orally intubated on mechanical ventilation. Tolerating tube feeds. Right approximately swelling noted. 09/22 Is not tolerating CPAP trial when decrease PS below 18. Daughter at bedside, says will be here later. Says they don't think they want to proceed with lung biopsy at this time, but on the other hand she discusses the possibility of re-do trach. She says they are not sure how to proceed. I suggested we meet together. Daughter states she has been bedridden since stroke about 4 years ago. Has been in prison. PEG due to dysphagia, does not eat. Speaks a little but daughter states she has declined significantly over the last 2 weeks. Subjective: 09/23 No significant change. Patient does not tolerate CPAP. Family is very clear that they do not wish to pursue biopsy or diagnosis of suspected lung cancer. At this time, they wish to continue supportive care with vent and FULL CODE. Objective Vital Signs / I&O: Vital Signs 09/23/18 12:30 09/23/18 13:00 09/23/18 13:30 Temperature Pulse Rate 72 75 72 Respiratory Rate 16 16 16 Blood Pressure 135/61 132/61 134/60 Pulse Oximetry 100 100 100 09/23/18 14:00 09/23/18 14:30 09/23/18 15:00 Temperature Pulse Rate 80 76 82 Respiratory Rate 16 16 16 Blood Pressure 122/58 L 137/63 128/58 L Pulse Oximetry 100 99 97 09/23/18 15:30 09/23/18 16:00 09/23/18 16:30 Temperature 98.4 F Pulse Rate 80 84 80 Respiratory Rate 17 16 16 Blood Pressure 104/56 L 113/56 L 115/55 L Pulse Oximetry 99 98 99 09/23/18 17:00 09/23/18 17:30 09/23/18 18:00 Temperature Pulse Rate 75 74 72 Respiratory Rate 16 16 16 Blood Pressure 104/56 L 106/58 L 117/57 L Pulse Oximetry 99 100 100 09/23/18 18:30 09/23/18 19:00 09/23/18 19:30 Temperature Pulse Rate 73 77 78 Respiratory Rate 16 16 11 L Blood Pressure 118/59 L 140/63 109/59 L Pulse Oximetry 100 98 100 09/23/18 20:00 09/23/18 20:31 09/23/18 20:50 Temperature 99.0 F Pulse Rate 85 86 Respiratory Rate 12 16 16 Blood Pressure 116/56 L 139/63 Pulse Oximetry 100 100 100 09/23/18 21:00 09/23/18 21:30 09/23/18 22:00 Temperature Pulse Rate 85 84 80 Respiratory Rate 16 16 16 Blood Pressure 124/61 127/59 L 130/61 Pulse Oximetry 99 100 100 09/23/18 22:30 09/23/18 23:00 09/23/18 23:30 Temperature Pulse Rate 79 79 77 Respiratory Rate 28 H 16 28 H Blood Pressure 145/64 H 124/60 127/61 Pulse Oximetry 99 100 100 09/24/18 00:00 09/24/18 00:02 09/24/18 00:30 Temperature 98.4 F Pulse Rate 75 73 Respiratory Rate 11 L 16 15 Blood Pressure 135/63 136/63 Pulse Oximetry 100 100 100 09/24/18 01:00 09/24/18 01:30 09/24/18 02:00 Temperature Pulse Rate 75 74 79 Respiratory Rate 16 16 16 Blood Pressure 145/67 H 140/65 140/66 Pulse Oximetry 100 100 100 09/24/18 02:30 09/24/18 03:00 09/24/18 03:30 Temperature Pulse Rate 79 80 82 Respiratory Rate 16 16 16 Blood Pressure 139/64 123/59 L 141/65 H Pulse Oximetry 100 100 100 09/24/18 04:00 09/24/18 04:15 09/24/18 04:30 Temperature Pulse Rate 80 83 Respiratory Rate 16 17 16 Blood Pressure 129/60 139/66 Pulse Oximetry 100 100 100 09/24/18 05:00 09/24/18 05:30 09/24/18 06:00 Temperature Pulse Rate 79 82 78 Respiratory Rate 28 H 16 16 Blood Pressure 111/55 L 126/58 L 131/60 Pulse Oximetry 100 99 100 09/24/18 06:30 09/24/18 07:00 09/24/18 07:30 Temperature Pulse Rate 80 75 71 Respiratory Rate 16 16 16 Blood Pressure 126/58 L 116/56 L 125/58 L Pulse Oximetry 100 100 100 09/24/18 07:32 09/24/18 08:00 09/24/18 08:30 Temperature 98.3 F Pulse Rate 73 71 Respiratory Rate 16 16 16 Blood Pressure 122/59 L 121/56 L Pulse Oximetry 100 100 100 09/24/18 09:00 09/24/18 10:00 09/24/18 11:38 Temperature Pulse Rate 73 74 Respiratory Rate 16 16 Blood Pressure 126/60 Pulse Oximetry 100 100 Intake & Output 09/23/18 09/24/18 09/24/18 18:59 06:59 18:59 Intake Total 1648.5 / 1648.5 1756.5 / 1756.5 Output Total 600 / 600 725 / 725 Balance 1048.5 / 1048.5 1031.5 / 1031.5 Weight 60.7 kg Intake: IV 662.5 / 662.5 662.5 / 662.5 Diprivan 1000 mg/100 ml Inj 1, 100 / 100 200 / 200 000 mg In 100 ml @ 5 MCG/KG/MIN 2.041 mls/hr IV.CONT TITRATE PRN Rx#:[id number] Zosyn 4.5 GM Premix 4.5 gm In 300 / 300 200 / 200 100 ml @ 200 mls/hr IV.SIG Q6H JORGE Rx#:[id number] Vancomycin Inj 1,250 MG In NS 262.5 / 262.5 262.5 / 262.5 Inj 250 ML @ 250 mls/hr IV.SIG Q18H JORGE Rx#:[id number] Oral 0 / 0 Tube Feeding 586 / 586 574 / 574 Tube Irrigant 120 / 120 Water Bolus Amount 400 / 400 400 / 400 Output: Urine 725 / 725 Stool 200 / 200 Urine Amount (Catheter) 400 / 400 Indwelling Temp Sensing 400 / 400 Catheter Other: # Voids 1 3 # Incontinent Voids 3 Date of Last Bowel Movement 09/23/18 09/24/18 09/24/18 # Bowel Movements 1 # Incontinent Bowel Movements 1 Result Diagrams: 09/24/18 06:05 09/24/18 06:05 Objective Remarks: GENERAL: Well-nourished, well-developed patient who is orotracheally intubated. SKIN: Warm and dry. HEAD: Atraumatic. Normocephalic. EYES: Pupils equal and round. No scleral icterus. No injection or drainage. ENT: No nasal bleeding or discharge. Mucous membranes pink and moist. NECK: Trachea midline. No JVD. CARDIOVASCULAR: Regular rate and rhythm. No murmurs rubs or gallops. RESPIRATORY: Orotracheally intubated on mechanical ventilation. Rhonchorous breath sounds. No wheeze or rales. GASTROINTESTINAL: Abdomen soft, non-tender, nondistended. PEG in place, aspirated gastric contents, flushes easily. OGT in place with feeds running.. MUSCULOSKELETAL: Extremities without clubbing, cyanosis, or edema. s/p L AKA. NEUROLOGICAL: Awakens, looks around. Assessment and Plan - Assessment and Plan Plan: NEURO: History of stroke Propofol for sedation RESP: Acute respiratory failure on mechanical ventilation Emphysema Lung mass History of prior trach after stroke, has been subsequently decannulated Discussed with daughter and Dr. De Jesus. not wishing to pursue CT-guided biopsy. Daily CPAP trials. Vent bundle/nebs. Mechanical ventilation day #6. I have discussed comfort care vs trach with family. Their wishes are unclear as of now. CV: HTN Monitor BP//heart rate. Continue metoprolol 100 bid. Continue cardizem 60q6. GI: PEG in place. Glucerna tube feeds. FEN/RENAL: Acute hypernatremia Hypokalemia Give free water flushes via PEG. ID: HCAP UTI Urine culture from 09/18 with providentia and Proteus. Urine and sputum cultures negative On zosyn since 09/18 #6. Will d/c following 7 day course. HEME: R brachial DVT Lovenox 60 mg subcu every 12 hours. ENDO: Diabetes mellitus Insulin sliding scale PROPH: SCD/Lovenox for DVT prophylaxis. Famotidine for stress ulcer prophylaxis. ACCESS: PIV x2. Full code Level 3 followup.
--- NOTE | 2018-09-24 13:53 | P.PNPAL ---
Reason for Visit Reason for visit: a. To assist with evaluation and management of symptoms including: dyspnea, pain. b. To assist medical decision maker(s) with: better understanding of current medical conditions; weighing benefits/burdens of medical treatment options; making medical treatment decisions. Subjective Subjective/Interval History: Patient seen and examined in ICU. DaughterBrea at bedside. works during the day, usually comes after work and will reportedly be here tonight/ staying until Thursday per daughter report. Patient is sedated on mech vent. She has not been tolerating CPAP trials. She does not arouse to voice or exam. Does not follow commands or nod yes/no to questions today. No signs of pain. Labs stable. Discussed with Dr. Carter if unable to be weaned from vent, family will likely be faced with trach decision. Patient already has PEG tube. Family has been clear they do not want to pursue lung biopsy. has said he would not want trach, though initially he told me it would be okay as she had trach in past. While they may not want trach, it does not seem they would consider transition to comfort with compassionate withdrawal of life support. Palliative care and samples and repairs preparer will continue conversations to clarify goals as these decisions are needed. Patient remains FULL CODE. Family/Friend Interactions: Long conversation with daughterBrea (she is not the legal decision maker) to provide medical update. She is asking questions about sputum production which I explained. We talked about pulmonary status and concern patient will not be able to be weaned from vent, possible need for tracheostomy. Daughter smiles and says "Ohhhh." Advised we will need to speak with her step-father and that these decisions may need to be made in the coming week. She verbalizes understanding. Advance Directives Living Will: Never completed Health Care Surrogate: Never completed Durable Power of Delivery Table Operator: Never completed Health Care Surrogate Name and Number: Health Care Proxy, spouse: Nazario Deutscht : [phone] Documented care wishes:: Has [place] DNR order signed by spouse in 2014, he has since rescinded DNR and revoked hospice services. Significant change in goals:: FULL CODE, goals remain aggressive. Objective Vital Signs: Vital Signs 09/23/18 14:00 09/23/18 14:30 09/23/18 15:00 Temperature Pulse Rate 80 76 82 Respiratory Rate 16 16 16 Blood Pressure 122/58 L 137/63 128/58 L Pulse Oximetry 100 99 97 09/23/18 15:30 09/23/18 16:00 09/23/18 16:30 Temperature 98.4 F Pulse Rate 80 84 80 Respiratory Rate 17 16 16 Blood Pressure 104/56 L 113/56 L 115/55 L Pulse Oximetry 99 98 99 09/23/18 17:00 09/23/18 17:30 09/23/18 18:00 Temperature Pulse Rate 75 74 72 Respiratory Rate 16 16 16 Blood Pressure 104/56 L 106/58 L 117/57 L Pulse Oximetry 99 100 100 09/23/18 18:30 09/23/18 19:00 09/23/18 19:30 Temperature Pulse Rate 73 77 78 Respiratory Rate 16 16 11 L Blood Pressure 118/59 L 140/63 109/59 L Pulse Oximetry 100 98 100 09/23/18 20:00 09/23/18 20:31 09/23/18 20:50 Temperature 99.0 F Pulse Rate 85 86 Respiratory Rate 12 16 16 Blood Pressure 116/56 L 139/63 Pulse Oximetry 100 100 100 09/23/18 21:00 09/23/18 21:30 09/23/18 22:00 Temperature Pulse Rate 85 84 80 Respiratory Rate 16 16 16 Blood Pressure 124/61 127/59 L 130/61 Pulse Oximetry 99 100 100 09/23/18 22:30 09/23/18 23:00 09/23/18 23:30 Temperature Pulse Rate 79 79 77 Respiratory Rate 28 H 16 28 H Blood Pressure 145/64 H 124/60 127/61 Pulse Oximetry 99 100 100 09/24/18 00:00 09/24/18 00:02 09/24/18 00:30 Temperature 98.4 F Pulse Rate 75 73 Respiratory Rate 11 L 16 15 Blood Pressure 135/63 136/63 Pulse Oximetry 100 100 100 09/24/18 01:00 09/24/18 01:30 09/24/18 02:00 Temperature Pulse Rate 75 74 79 Respiratory Rate 16 16 16 Blood Pressure 145/67 H 140/65 140/66 Pulse Oximetry 100 100 100 09/24/18 02:30 09/24/18 03:00 09/24/18 03:30 Temperature Pulse Rate 79 80 82 Respiratory Rate 16 16 16 Blood Pressure 139/64 123/59 L 141/65 H Pulse Oximetry 100 100 100 09/24/18 04:00 09/24/18 04:15 09/24/18 04:30 Temperature Pulse Rate 80 83 Respiratory Rate 16 17 16 Blood Pressure 129/60 139/66 Pulse Oximetry 100 100 100 09/24/18 05:00 09/24/18 05:30 09/24/18 06:00 Temperature Pulse Rate 79 82 78 Respiratory Rate 28 H 16 16 Blood Pressure 111/55 L 126/58 L 131/60 Pulse Oximetry 100 99 100 09/24/18 06:30 09/24/18 07:00 09/24/18 07:30 Temperature Pulse Rate 80 75 71 Respiratory Rate 16 16 16 Blood Pressure 126/58 L 116/56 L 125/58 L Pulse Oximetry 100 100 100 09/24/18 07:32 09/24/18 08:00 09/24/18 08:30 Temperature 98.3 F Pulse Rate 73 71 Respiratory Rate 16 16 16 Blood Pressure 122/59 L 121/56 L Pulse Oximetry 100 100 100 09/24/18 09:00 09/24/18 09:30 09/24/18 10:00 Temperature Pulse Rate 73 74 74 Respiratory Rate 16 16 16 Blood Pressure 126/60 126/60 125/60 Pulse Oximetry 100 100 100 09/24/18 10:30 09/24/18 11:00 09/24/18 11:30 Temperature Pulse Rate 75 80 78 Respiratory Rate 16 16 16 Blood Pressure 140/65 143/65 H 144/65 H Pulse Oximetry 100 100 99 09/24/18 11:38 09/24/18 12:00 09/24/18 12:30 Temperature 98.6 F Pulse Rate 77 80 Respiratory Rate 16 16 16 Blood Pressure 153/69 H 137/64 Pulse Oximetry 100 100 100 Intake & Output 09/23/18 09/24/18 09/24/18 18:59 06:59 18:59 Intake Total 1648.5 / 1648.5 1756.5 / 1756.5 100 / 100 Output Total 600 / 600 725 / 725 Balance 1048.5 / 1048.5 1031.5 / 1031.5 100 / 100 Weight 60.7 kg Intake: IV 662.5 / 662.5 662.5 / 662.5 100 / 100 Diprivan 1000 mg/100 ml Inj 1, 100 / 100 200 / 200 100 / 100 000 mg In 100 ml @ 5 MCG/KG/MIN 2.041 mls/hr IV.CONT TITRATE PRN Rx#:[id number] Zosyn 4.5 GM Premix 4.5 gm In 300 / 300 200 / 200 100 ml @ 200 mls/hr IV.SIG Q6H JORGE Rx#:[id number] Vancomycin Inj 1,250 MG In NS 262.5 / 262.5 262.5 / 262.5 Inj 250 ML @ 250 mls/hr IV.SIG Q18H JORGE Rx#:[id number] Oral 0 / 0 Tube Feeding 586 / 586 574 / 574 Tube Irrigant 120 / 120 Water Bolus Amount 400 / 400 400 / 400 Output: Urine 725 / 725 Stool 200 / 200 Urine Amount (Catheter) 400 / 400 Indwelling Temp Sensing 400 / 400 Catheter Other: # Voids 1 3 # Incontinent Voids 3 Date of Last Bowel Movement 09/23/18 09/24/18 09/24/18 # Bowel Movements 1 # Incontinent Bowel Movements 1 Physical Exam: CONSTITUTIONAL/GENERAL: This is an adequately nourished patient, in no apparent distress. TUBES/LINES/DRAINS: ETT, PEG tube, PIV, Barnard, rectal tube, podus boot right SKIN: No jaundice, rashes, or lesions. Ecchymoses on upper extremities. Sacral wound, not visualized by me today. Skin temperature appropriate. Not diaphoretic. EYES: eyes open, tracking. ENT: Hearing appears grossly normal. Nose without bleeding or purulent drainage. Throat difficult to visualize due to tubes. CARDIOVASCULAR: Regular rate and rhythm without murmur. RESPIRATORY/CHEST: unlabored respirations on CPAP. diminished breath sounds bilaterally. GASTROINTESTINAL: Abdomen soft, nondistended. Bowel sounds present. GENITOURINARY: Without palpable bladder distension. Barnard catheter in place. MUSCULOSKELETAL: Left AKA, well-healed. No mottling or clubbing. NEUROLOGICAL: Does not awaken to voice, does not follow commands or nod yes/no to voice. PSYCHIATRIC: sedated. Diagnostic Tests Laboratory: Laboratory Results - last 72 hr 09/18/18 09/21/18 09/21/18 18:35 16:43 17:44 WBC RBC Hgb Hct MCV MCH MCHC RDW Plt Count MPV Prelim Diff (Auto) Neut % (Auto) Lymph % (Auto) [place] % (Auto) Eos % (Auto) Baso % (Auto) Neut # (Auto) Lymph # (Auto) [place] # (Auto) Eos # (Auto) Baso # (Auto) WBC Differential Diff Scan Differential Comment Toxic Vacuolation Platelet Estimate Platelet Morphology Tear Drop Cells Ovalocytes Sodium 145 Potassium 4.6 Chloride 116 H Carbon Dioxide 22.6 Anion Gap 6 BUN 19 H Creatinine 0.73 Estimated GFR Greater than 89 POC Glucose 141 H Random Glucose 151 H Calcium 7.8 L Magnesium 2.3 Total Bilirubin 0.3 AST 37 ALT 28 Alkaline Phosphatase 87 Total Protein 7.9 Albumin 2.2 L Urine Color Yellow Urine Clarity Cloudy H Urine pH 8.0 Ur Specific [place] 1.024 Urine Protein 100 H Urine Glucose (UA) Negative Urine Ketones Negative Urine Occult Blood Moderate H Urine Nitrate Negative Urine Bilirubin Negative Urine Urobilinogen Less than 2 Ur Leukocyte Esterase Moderate H Urine RBC Urine WBC Urine WBC Clumps Many H Ur Squamous Epith Cells 4 Triple Phos Crystals Many H Urine Bacteria Moderate H Urine Mucus Many H Micro UA Comment Cath-culture ind Urine Culture Comments Cath-cult indicated Vancomycin Trough 10.2 H 09/21/18 09/22/18 09/22/18 23:26 05:09 05:09 WBC 7.5 RBC 3.59 L Hgb 8.2 L Hct 27.6 L MCV 77.1 L MCH 22.8 L MCHC 29.6 L RDW 18.3 H Plt Count 228 MPV 11.0 Prelim Diff (Auto) Slide review pending Neut % (Auto) 83.8 H Lymph % (Auto) 9.2 [place] % (Auto) 6.5 Eos % (Auto) 0.0 Baso % (Auto) 0.5 Neut # (Auto) 6.3 Lymph # (Auto) 0.7 L [place] # (Auto) 0.5 Eos # (Auto) 0.0 Baso # (Auto) 0.0 WBC Differential . Diff Scan Auto diff confirmed Differential Comment . Toxic Vacuolation Present H Platelet Estimate Normal Platelet Morphology Enlarged H Tear Drop Cells Ovalocytes 1+ H Sodium 148 H Potassium 3.8 D Chloride 118 H Carbon Dioxide 23.0 Anion Gap 7 BUN 20 H Creatinine 0.72 Estimated GFR Greater than 89 POC Glucose 142 H Random Glucose 138 H Calcium 8.0 L Magnesium 2.5 Total Bilirubin 0.3 AST 39 H ALT 36 Alkaline Phosphatase 85 Total Protein 7.5 Albumin 2.2 L Urine Color Urine Clarity Urine pH Ur Specific [place] Urine Protein Urine Glucose (UA) Urine Ketones Urine Occult Blood Urine Nitrate Urine Bilirubin Urine Urobilinogen Ur Leukocyte Esterase Urine RBC Urine WBC Urine WBC Clumps Ur Squamous Epith Cells Triple Phos Crystals Urine Bacteria Urine Mucus Micro UA Comment Urine Culture Comments Vancomycin Trough 09/22/18 09/22/18 09/22/18 05:20 11:08 17:17 WBC RBC Hgb Hct MCV MCH MCHC RDW Plt Count MPV Prelim Diff (Auto) Neut % (Auto) Lymph % (Auto) [place] % (Auto) Eos % (Auto) Baso % (Auto) Neut # (Auto) Lymph # (Auto) [place] # (Auto) Eos # (Auto) Baso # (Auto) WBC Differential Diff Scan Differential Comment Toxic Vacuolation Platelet Estimate Platelet Morphology Tear Drop Cells Ovalocytes Sodium Potassium Chloride Carbon Dioxide Anion Gap BUN Creatinine Estimated GFR POC Glucose 142 H 143 H 146 H Random Glucose Calcium Magnesium Total Bilirubin AST ALT Alkaline Phosphatase Total Protein Albumin Urine Color Urine Clarity Urine pH Ur Specific [place] Urine Protein Urine Glucose (UA) Urine Ketones Urine Occult Blood Urine Nitrate Urine Bilirubin Urine Urobilinogen Ur Leukocyte Esterase Urine RBC Urine WBC Urine WBC Clumps Ur Squamous Epith Cells Triple Phos Crystals Urine Bacteria Urine Mucus Micro UA Comment Urine Culture Comments Vancomycin Trough 09/22/18 09/23/18 09/23/18 23:28 06:13 06:13 WBC RBC Hgb Hct MCV MCH MCHC RDW Plt Count MPV Prelim Diff (Auto) Neut % (Auto) Lymph % (Auto) [place] % (Auto) Eos % (Auto) Baso % (Auto) Neut # (Auto) Lymph # (Auto) [place] # (Auto) Eos # (Auto) Baso # (Auto) WBC Differential Diff Scan Differential Comment Toxic Vacuolation Platelet Estimate Platelet Morphology Tear Drop Cells Ovalocytes Sodium 146 H Potassium 3.6 Chloride 113 H Carbon Dioxide 26.0 Anion Gap 7 BUN 22 H Creatinine 0.83 Estimated GFR 82 L POC Glucose 138 H Random Glucose 139 H Calcium 8.2 L Magnesium Total Bilirubin 0.2 AST 43 H ALT 63 H Alkaline Phosphatase 91 Total Protein 7.6 Albumin 2.4 L Urine Color Urine Clarity Urine pH Ur Specific [place] Urine Protein Urine Glucose (UA) Urine Ketones Urine Occult Blood Urine Nitrate Urine Bilirubin Urine Urobilinogen Ur Leukocyte Esterase Urine RBC Urine WBC Urine WBC Clumps Ur Squamous Epith Cells Triple Phos Crystals Urine Bacteria Urine Mucus Micro UA Comment Urine Culture Comments Vancomycin Trough 17.3 H Cancelled 09/23/18 09/23/18 09/23/18 06:13 06:39 12:36 WBC 8.8 RBC 3.92 L Hgb 9.0 L Hct 30.0 L MCV 76.6 L MCH 22.9 L MCHC 29.9 L RDW 18.6 H Plt Count 249 MPV 10.8 Prelim Diff (Auto) Slide review pending Neut % (Auto) 83.1 H Lymph % (Auto) 10.6 [place] % (Auto) 6.2 Eos % (Auto) 0.0 Baso % (Auto) 0.1 Neut # (Auto) 7.3 Lymph # (Auto) 0.9 L [place] # (Auto) 0.5 Eos # (Auto) 0.0 Baso # (Auto) 0.0 WBC Differential . Diff Scan Auto diff confirmed Differential Comment . Toxic Vacuolation Platelet Estimate Normal Platelet Morphology Enlarged H Tear Drop Cells 1+ H Ovalocytes 1+ H Sodium Potassium Chloride Carbon Dioxide Anion Gap BUN Creatinine Estimated GFR POC Glucose 142 H 117 H Random Glucose Calcium Magnesium Total Bilirubin AST ALT Alkaline Phosphatase Total Protein Albumin Urine Color Urine Clarity Urine pH Ur Specific [place] Urine Protein Urine Glucose (UA) Urine Ketones Urine Occult Blood Urine Nitrate Urine Bilirubin Urine Urobilinogen Ur Leukocyte Esterase Urine RBC Urine WBC Urine WBC Clumps Ur Squamous Epith Cells Triple Phos Crystals Urine Bacteria Urine Mucus Micro UA Comment Urine Culture Comments Vancomycin Trough 09/23/18 09/23/18 09/24/18 17:50 23:42 05:24 WBC RBC Hgb Hct MCV MCH MCHC RDW Plt Count MPV Prelim Diff (Auto) Neut % (Auto) Lymph % (Auto) [place] % (Auto) Eos % (Auto) Baso % (Auto) Neut # (Auto) Lymph # (Auto) [place] # (Auto) Eos # (Auto) Baso # (Auto) WBC Differential Diff Scan Differential Comment Toxic Vacuolation Platelet Estimate Platelet Morphology Tear Drop Cells Ovalocytes Sodium Potassium Chloride Carbon Dioxide Anion Gap BUN Creatinine Estimated GFR POC Glucose 141 H 171 H 151 H Random Glucose Calcium Magnesium Total Bilirubin AST ALT Alkaline Phosphatase Total Protein Albumin Urine Color Urine Clarity Urine pH Ur Specific [place] Urine Protein Urine Glucose (UA) Urine Ketones Urine Occult Blood Urine Nitrate Urine Bilirubin Urine Urobilinogen Ur Leukocyte Esterase Urine RBC Urine WBC Urine WBC Clumps Ur Squamous Epith Cells Triple Phos Crystals Urine Bacteria Urine Mucus Micro UA Comment Urine Culture Comments Vancomycin Trough 09/24/18 09/24/18 09/24/18 06:05 06:05 11:59 WBC 8.0 RBC 3.93 L Hgb 9.1 L Hct 30.4 L MCV 77.3 L MCH 23.1 L MCHC 29.9 L RDW 19.1 H Plt Count 247 MPV 11.0 Prelim Diff (Auto) Neut % (Auto) 91.1 H Lymph % (Auto) 5.7 L [place] % (Auto) 3.1 Eos % (Auto) 0.0 Baso % (Auto) 0.1 Neut # (Auto) 7.3 Lymph # (Auto) 0.5 L [place] # (Auto) 0.3 Eos # (Auto) 0.0 Baso # (Auto) 0.0 WBC Differential . Diff Scan Differential Comment Auto diff final Toxic Vacuolation Platelet Estimate Platelet Morphology Tear Drop Cells Ovalocytes Sodium 144 Potassium 3.7 Chloride 111 H Carbon Dioxide 26.3 Anion Gap 7 BUN 22 H Creatinine 0.80 Estimated GFR 86 L POC Glucose 156 H Random Glucose 167 H Calcium 8.3 L Magnesium Total Bilirubin 0.3 AST 37 ALT 65 H Alkaline Phosphatase 87 Total Protein 7.3 Albumin 2.2 L Urine Color Urine Clarity Urine pH Ur Specific [place] Urine Protein Urine Glucose (UA) Urine Ketones Urine Occult Blood Urine Nitrate Urine Bilirubin Urine Urobilinogen Ur Leukocyte Esterase Urine RBC Urine WBC Urine WBC Clumps Ur Squamous Epith Cells Triple Phos Crystals Urine Bacteria Urine Mucus Micro UA Comment Urine Culture Comments Vancomycin Trough Result Diagrams: 09/24/18 06:05 09/24/18 06:05 Microbiology: Microbiology 09/18/18 18:45 Aerobic Blood Culture - Final Blood - Peripheral No growth in 5 days Anaerobic Blood Culture - Final No growth in 5 days 09/18/18 18:55 Aerobic Blood Culture - Final Blood - Peripheral No growth in 5 days Anaerobic Blood Culture - Final No growth in 5 days 09/19/18 12:30 Gram Stain - Final Sputum - Endotracheal Sputum Culture - Final Light growth normal respiratory michelle 09/18/18 18:35 Urine Culture - Final Catheterized Urine Proteus mirabilis Providencia stuartii Imaging: Head CT 09/18/18 18:40 CONCLUSION: 1. Stable appearance of the brain. Marked ventriculomegaly and white matter disease. . Chest CTA 09/18/18 19:26 CONCLUSION: 1. There is no evidence for pulmonary embolism. 2. Severe emphysema. 3. There is a large soft tissue mass in the right lower lobe suspicious for malignancy until proven otherwise. Venous Doppler Study 09/21/18 00:00 CONCLUSION: 1. There is occlusive thrombus within the right cephalic and brachial veins. Chest X-Ray 09/22/18 05:00 CONCLUSION: Unchanged bibasilar consolidation particularly on the right. Procedures: * 09/18/18 - intubated Assessment and Plan - Disease Oriented Problem List (1) UTI (urinary tract infection) (2) Respiratory failure (3) Lung mass (4) Emphysema lung (5) Lactic acidemia (6) Dehydration (7) Hypertension (8) Diabetes (9) Hypernatremia - Symptom Scale (1) Pain 0-10 Scale: Unable to quantify (2) Dyspnea 0-10 Scale: Unable to quantify Pertinent Non-Medical Issues: Psychosocial: . Has 2 daughters, Brea (lives [facility]) and Erica ( lives [place]). Spiritual: Unknown. Legal:No known written advanced directives. Patient is not capacitated to make her own healthcare decisions, will not likely regain capacity. . Has 2 adult daughters. According to [place] [employer] healthcare proxy decision making falls to her spouse, Nazario Marrufo. Ethical issues impacting care: No known concerns at this time. Important Contacts: * Nazario Marrufo, spouse/HCP: [phone] * Brea Potts, daughter: [phone] or [phone] Prognosis: Overall prognosis is poor in this 68-year-old assisted dependent patient with end-stage stroke with residual hemiparesis, dysphagia, inability to communicate on tube feeding, bedbound at baseline. Now with 8 x 5 cm right lower lobe mass suspicious for malignancy. Patient not likely a candidate for surgical or chemotherapy. Overall prognosis poor. Code Status: Full Code Plan: * No known written advanced directives. Patient is not capacitated to make her own healthcare decisions, will not likely regain capacity. . Has 2 adult daughters. According to [place] statutes healthcare proxy decision making falls to her spouse, [place] Cliatt. * FULL CODE -spouse revoked [place] DNR order on admission. * Family desires continued aggressive care including FULL CODE. Family verbalized to other providers not wanting to pursue lung biopsy at this time. Family considering trach if patient unable to be weaned from vent. * SYMPTOMS: Dyspnea: Secondary to emphysema, resp failure, on mech vent. Pain: due to tubes, resp failure, wound. On Propofol drip for vent synchrony. No new medication recommendations at this time. * Palliative care will continue to follow throughout hospital course to assist with symptom management further clarification of goals of medical treatment as needed. Attestation Attestation: To help prompt me to consider important information that might be impacting today's encounter and assessment, information from prior notes written by myself or my colleagues may have been "brought forward" into today's note. My signature on this note, however, is an attestation that I personally performed the exam, history, and/or decision-making noted today, and, unless otherwise indicated, the interactions with patient, family, and staff as well as the review of records all occurred today. I also attest that the listed assessment and stated plan reflect my best clinical judgment today based on the combination of historical information, prior notes, and today's exam/ interactions. When time spent is documented, it refers only to time spent today by the signer, or if indicated, combined time spent today by collaborating physician/nurse practitioner.
--- NOTE | 2018-09-24 16:19 | P.PNCC ---
Subjective Subjective Remarks/Hospital Course: 09/18: 68-year-old female past medical history of stroke, left BKA, who was on home hospice until just prior to arrival, presents for an evaluation of fever and altered mental status. According to EMS the patient had not required oxygen until beginning of this week when she had gradual increased demand of her oxygen. End-tidal CO2 prior to arrival was 6. Initial room nasal cannula saturation was 91, she was placed on nonrebreather position of comfort and transfer to emergency department. EMS related that the had elected to revoke the patient's DNR and hospice care prior to transferring her to the hospital. The patient apparently is normally a GCS of 14, apparently she does take some thickened food p.o. department the patient was severely altered with GCS of 6 on arrival E4V1M1 and was intubated by ED attending for an airway protection. 09/19: Remains sedated, orally intubated on mechanical ventilation. CT chest showed right lower lobe lung mass suspicious for malignancy. Patient has a PEG tube following previous stroke. 09/20: Remains sedated, orally intubated on mechanical ventilation. Started on tube feeds. 09/21: Remains sedated, orally intubated on mechanical ventilation. Tolerating tube feeds. Right approximately swelling noted. 09/22 Is not tolerating CPAP trial when decrease PS below 18. Daughter at bedside, says will be here later. Says they don't think they want to proceed with lung biopsy at this time, but on the other hand she discusses the possibility of re-do trach. She says they are not sure how to proceed. I suggested we meet together. Daughter states she has been bedridden since stroke about 4 years ago. Has been in jail. PEG due to dysphagia, does not eat. Speaks a little but daughter states she has declined significantly over the last 2 weeks. 09/23 No significant change. Patient does not tolerate CPAP. Family is very clear that they do not wish to pursue biopsy or diagnosis of suspected lung cancer. At this time, they wish to continue supportive care with vent and FULL CODE. Subjective: 09/24 No change. Does not tolerate CPAP. Will diurese for positive fluid balance. Objective Vital Signs / I&O: Vital Signs 09/23/18 16:30 09/23/18 17:00 09/23/18 17:30 Temperature Pulse Rate 80 75 74 Respiratory Rate 16 16 16 Blood Pressure 115/55 L 104/56 L 106/58 L Pulse Oximetry 99 99 100 09/23/18 18:00 09/23/18 18:30 09/23/18 19:00 Temperature Pulse Rate 72 73 77 Respiratory Rate 16 16 16 Blood Pressure 117/57 L 118/59 L 140/63 Pulse Oximetry 100 100 98 09/23/18 19:30 09/23/18 20:00 09/23/18 20:31 Temperature 99.0 F Pulse Rate 78 85 86 Respiratory Rate 11 L 12 16 Blood Pressure 109/59 L 116/56 L 139/63 Pulse Oximetry 100 100 100 09/23/18 20:50 09/23/18 21:00 09/23/18 21:30 Temperature Pulse Rate 85 84 Respiratory Rate 16 16 16 Blood Pressure 124/61 127/59 L Pulse Oximetry 100 99 100 09/23/18 22:00 09/23/18 22:30 09/23/18 23:00 Temperature Pulse Rate 80 79 79 Respiratory Rate 16 28 H 16 Blood Pressure 130/61 145/64 H 124/60 Pulse Oximetry 100 99 100 09/23/18 23:30 09/24/18 00:00 09/24/18 00:02 Temperature 98.4 F Pulse Rate 77 75 Respiratory Rate 28 H 11 L 16 Blood Pressure 127/61 135/63 Pulse Oximetry 100 100 100 09/24/18 00:30 09/24/18 01:00 09/24/18 01:30 Temperature Pulse Rate 73 75 74 Respiratory Rate 15 16 16 Blood Pressure 136/63 145/67 H 140/65 Pulse Oximetry 100 100 100 09/24/18 02:00 09/24/18 02:30 09/24/18 03:00 Temperature Pulse Rate 79 79 80 Respiratory Rate 16 16 16 Blood Pressure 140/66 139/64 123/59 L Pulse Oximetry 100 100 100 09/24/18 03:30 09/24/18 04:00 09/24/18 04:15 Temperature Pulse Rate 82 80 Respiratory Rate 16 16 17 Blood Pressure 141/65 H 129/60 Pulse Oximetry 100 100 100 09/24/18 04:30 09/24/18 05:00 09/24/18 05:30 Temperature Pulse Rate 83 79 82 Respiratory Rate 16 28 H 16 Blood Pressure 139/66 111/55 L 126/58 L Pulse Oximetry 100 100 99 09/24/18 06:00 09/24/18 06:30 09/24/18 07:00 Temperature Pulse Rate 78 80 75 Respiratory Rate 16 16 16 Blood Pressure 131/60 126/58 L 116/56 L Pulse Oximetry 100 100 100 09/24/18 07:30 09/24/18 07:32 09/24/18 08:00 Temperature 98.3 F Pulse Rate 71 73 Respiratory Rate 16 16 16 Blood Pressure 125/58 L 122/59 L Pulse Oximetry 100 100 100 09/24/18 08:30 09/24/18 09:00 09/24/18 09:30 Temperature Pulse Rate 71 73 74 Respiratory Rate 16 16 16 Blood Pressure 121/56 L 126/60 126/60 Pulse Oximetry 100 100 100 09/24/18 10:00 09/24/18 10:30 09/24/18 11:00 Temperature Pulse Rate 74 75 80 Respiratory Rate 16 16 16 Blood Pressure 125/60 140/65 143/65 H Pulse Oximetry 100 100 100 09/24/18 11:30 09/24/18 11:38 09/24/18 12:00 Temperature 98.6 F Pulse Rate 78 77 Respiratory Rate 16 16 16 Blood Pressure 144/65 H 153/69 H Pulse Oximetry 99 100 100 09/24/18 12:30 09/24/18 14:00 09/24/18 15:36 Temperature Pulse Rate 80 76 Respiratory Rate 16 16 Blood Pressure 137/64 Pulse Oximetry 100 100 Intake & Output 09/23/18 09/24/18 09/24/18 18:59 06:59 18:59 Intake Total 1648.5 / 1648.5 1756.5 / 1756.5 100 / 100 Output Total 600 / 600 725 / 725 Balance 1048.5 / 1048.5 1031.5 / 1031.5 100 / 100 Weight 60.7 kg Intake: IV 662.5 / 662.5 662.5 / 662.5 100 / 100 Diprivan 1000 mg/100 ml Inj 1, 100 / 100 200 / 200 100 / 100 000 mg In 100 ml @ 5 MCG/KG/MIN 2.041 mls/hr IV.CONT TITRATE PRN Rx#:[id number] Zosyn 4.5 GM Premix 4.5 gm In 300 / 300 200 / 200 100 ml @ 200 mls/hr IV.SIG Q6H JORGE Rx#:[id number] Vancomycin Inj 1,250 MG In NS 262.5 / 262.5 262.5 / 262.5 Inj 250 ML @ 250 mls/hr IV.SIG Q18H JORGE Rx#:[id number] Oral 0 / 0 Tube Feeding 586 / 586 574 / 574 Tube Irrigant 120 / 120 Water Bolus Amount 400 / 400 400 / 400 Output: Urine 725 / 725 Stool 200 / 200 Urine Amount (Catheter) 400 / 400 Indwelling Temp Sensing 400 / 400 Catheter Other: # Voids 1 3 # Incontinent Voids 3 Date of Last Bowel Movement 09/23/18 09/24/18 09/24/18 # Bowel Movements 1 # Incontinent Bowel Movements 1 Result Diagrams: 09/24/18 06:05 09/24/18 06:05 Objective Remarks: GENERAL: Well-nourished, well-developed patient who is orotracheally intubated. SKIN: Warm and dry. HEAD: Atraumatic. Normocephalic. EYES: Pupils equal and round. No scleral icterus. No injection or drainage. ENT: No nasal bleeding or discharge. Mucous membranes pink and moist. NECK: Trachea midline. No JVD. CARDIOVASCULAR: Regular rate and rhythm. No murmurs rubs or gallops. RESPIRATORY: Orotracheally intubated on mechanical ventilation. Rhonchorous breath sounds. No wheeze or rales. GASTROINTESTINAL: Abdomen soft, non-tender, nondistended. PEG in place, tube feeds running. MUSCULOSKELETAL: Extremities without clubbing, cyanosis, or edema. s/p L AKA. NEUROLOGICAL: Awakens, looks around. Blinks and squeezes hand to command Assessment and Plan - Assessment and Plan Plan: NEURO: History of stroke Propofol for sedation RESP: Acute respiratory failure on mechanical ventilation Emphysema Lung mass History of prior trach after stroke, has been subsequently decannulated Discussed with daughter and Dr. De Jesus. not wishing to pursue CT-guided biopsy. Daily CPAP trials. Vent bundle/nebs. Mechanical ventilation day #7. I have discussed comfort care vs trach with family. Their wishes are unclear as of now. Lasix 40 mg IV q12. KCL 40 MEQ bid x2. D/c steroids CV: HTN Monitor BP//heart rate. Continue metoprolol 100 bid. Continue cardizem 60q6. GI: PEG in place. Glucerna tube feeds. FEN/RENAL: Acute hypernatremia Hypokalemia resolved Give free water flushes via PEG. ID: HCAP UTI Urine culture from 09/18 with providentia and Proteus. Urine and sputum cultures negative On zosyn since 09/18 #7. Will d/c HEME: R brachial DVT Lovenox 60 mg subcu every 12 hours. ENDO: Diabetes mellitus Insulin sliding scale PROPH: SCD/Lovenox for DVT prophylaxis. Famotidine for stress ulcer prophylaxis. ACCESS: PIV x2. Full code Level 2 followup.
[2018-09-24] MEDS: Vancomycin Inj 1,250 MG in Sodium Chlor 0.9% Inj 250 ML IV.SIG SCH (17:49)
--- NOTE | 2018-09-24 18:07 | P.PNPL ---
Subjective Interval history: 68 YOAA female who was with Hospice svc, now rescended Daughter at , she dw her step father and do not want any lung bx Sedated No fever Family not sure if they would want trach if needed On CPAP, techpnoic Physical Exam Vital signs: Vital Signs 09/23/18 18:30 09/23/18 19:00 09/23/18 19:30 Temperature Pulse Rate 73 77 78 Respiratory Rate 16 16 11 L Blood Pressure 118/59 L 140/63 109/59 L Pulse Oximetry 100 98 100 09/23/18 20:00 09/23/18 20:31 09/23/18 20:50 Temperature 99.0 F Pulse Rate 85 86 Respiratory Rate 12 16 16 Blood Pressure 116/56 L 139/63 Pulse Oximetry 100 100 100 09/23/18 21:00 09/23/18 21:30 09/23/18 22:00 Temperature Pulse Rate 85 84 80 Respiratory Rate 16 16 16 Blood Pressure 124/61 127/59 L 130/61 Pulse Oximetry 99 100 100 09/23/18 22:30 09/23/18 23:00 09/23/18 23:30 Temperature Pulse Rate 79 79 77 Respiratory Rate 28 H 16 28 H Blood Pressure 145/64 H 124/60 127/61 Pulse Oximetry 99 100 100 09/24/18 00:00 09/24/18 00:02 09/24/18 00:30 Temperature 98.4 F Pulse Rate 75 73 Respiratory Rate 11 L 16 15 Blood Pressure 135/63 136/63 Pulse Oximetry 100 100 100 09/24/18 01:00 09/24/18 01:30 09/24/18 02:00 Temperature Pulse Rate 75 74 79 Respiratory Rate 16 16 16 Blood Pressure 145/67 H 140/65 140/66 Pulse Oximetry 100 100 100 09/24/18 02:30 09/24/18 03:00 09/24/18 03:30 Temperature Pulse Rate 79 80 82 Respiratory Rate 16 16 16 Blood Pressure 139/64 123/59 L 141/65 H Pulse Oximetry 100 100 100 09/24/18 04:00 09/24/18 04:15 09/24/18 04:30 Temperature Pulse Rate 80 83 Respiratory Rate 16 17 16 Blood Pressure 129/60 139/66 Pulse Oximetry 100 100 100 09/24/18 05:00 09/24/18 05:30 09/24/18 06:00 Temperature Pulse Rate 79 82 78 Respiratory Rate 28 H 16 16 Blood Pressure 111/55 L 126/58 L 131/60 Pulse Oximetry 100 99 100 09/24/18 06:30 09/24/18 07:00 09/24/18 07:30 Temperature Pulse Rate 80 75 71 Respiratory Rate 16 16 16 Blood Pressure 126/58 L 116/56 L 125/58 L Pulse Oximetry 100 100 100 09/24/18 07:32 09/24/18 08:00 09/24/18 08:30 Temperature 98.3 F Pulse Rate 73 71 Respiratory Rate 16 16 16 Blood Pressure 122/59 L 121/56 L Pulse Oximetry 100 100 100 09/24/18 09:00 09/24/18 09:30 09/24/18 10:00 Temperature Pulse Rate 73 74 74 Respiratory Rate 16 16 16 Blood Pressure 126/60 126/60 125/60 Pulse Oximetry 100 100 100 09/24/18 10:30 09/24/18 11:00 09/24/18 11:30 Temperature Pulse Rate 75 80 78 Respiratory Rate 16 16 16 Blood Pressure 140/65 143/65 H 144/65 H Pulse Oximetry 100 100 99 09/24/18 11:38 09/24/18 12:00 09/24/18 12:30 Temperature 98.6 F Pulse Rate 77 80 Respiratory Rate 16 16 16 Blood Pressure 153/69 H 137/64 Pulse Oximetry 100 100 100 09/24/18 13:00 09/24/18 13:30 09/24/18 14:00 Temperature Pulse Rate 74 74 76 Respiratory Rate 15 16 16 Blood Pressure 148/67 H 159/73 H 146/65 H Pulse Oximetry 100 100 100 09/24/18 14:30 09/24/18 15:00 09/24/18 15:31 Temperature Pulse Rate 72 73 80 Respiratory Rate 16 16 16 Blood Pressure 165/73 H 112/57 L 173/74 H Pulse Oximetry 100 100 99 09/24/18 15:36 09/24/18 16:00 09/24/18 16:30 Temperature 98.6 F Pulse Rate 77 84 Respiratory Rate 16 16 25 H Blood Pressure 131/63 180/74 H Pulse Oximetry 100 100 99 Intake & Output 09/23/18 09/24/18 09/24/18 18:59 06:59 18:59 Intake Total 1648.5 / 1648.5 1756.5 / 1756.5 100 / 100 Output Total 600 / 600 725 / 725 Balance 1048.5 / 1048.5 1031.5 / 1031.5 100 / 100 Weight 60.7 kg Intake: IV 662.5 / 662.5 662.5 / 662.5 100 / 100 Diprivan 1000 mg/100 ml Inj 1, 100 / 100 200 / 200 100 / 100 000 mg In 100 ml @ 5 MCG/KG/MIN 2.041 mls/hr IV.CONT TITRATE PRN Rx#:[id number] Zosyn 4.5 GM Premix 4.5 gm In 300 / 300 200 / 200 100 ml @ 200 mls/hr IV.SIG Q6H JORGE Rx#:[id number] Vancomycin Inj 1,250 MG In NS 262.5 / 262.5 262.5 / 262.5 Inj 250 ML @ 250 mls/hr IV.SIG Q18H JORGE Rx#:[id number] Oral 0 / 0 Tube Feeding 586 / 586 574 / 574 Tube Irrigant 120 / 120 Water Bolus Amount 400 / 400 400 / 400 Output: Urine 725 / 725 Stool 200 / 200 Urine Amount (Catheter) 400 / 400 Indwelling Temp Sensing 400 / 400 Catheter Other: # Voids 1 3 # Incontinent Voids 3 Date of Last Bowel Movement 09/23/18 09/24/18 09/24/18 # Bowel Movements 1 # Incontinent Bowel Movements 1 GENERAL: Elderly AA female, on vent SKIN: Warm and dry. HEAD: Normocephalic. EYES: No scleral icterus. No injection or drainage. NECK: Supple, trachea midline. No JVD or lymphadenopathy. CARDIOVASCULAR: Regular rate and rhythm without murmurs, gallops, or rubs. RESPIRATORY: Breath sounds equal bilaterally. No accessory muscle use. GASTROINTESTINAL: Abdomen soft, non-tender, nondistended. MUSCULOSKELETAL: No cyanosis, or edema. BACK: Nontender without obvious deformity. No CVA tenderness. - Urinary Catheter Management Indwelling Temp Sensing Catheter Cath placed during this visit: yes, but has since been removed by the nurse Reason for continuing: Severe pressure ulcer/wound Insertion date: 09/18/18 Insertion time: 18:50 Removal date: 09/23/18 Removal time: 16:00 Assessment and Plan - Plan IMPRESSION: VDRF large Rt lung mass COPD HTN H/O CVA PLAN: Cont vent support Aerosol nebs IV Solumedrol Cont Abx , does want any lung bx at this time. Daily CPAP trial
[2018-09-24] MEDS: Potassium Chloride Liq 20 MEQ/15 ML UDC NG/OG SCH (20:18)
[2018-09-25] MEDS: Piperacil/Tazo 4.5 GM Premix 4.5 GM/100 ML BAG IV.SIG SCH ×2 (00:37→06:21)
[2018-09-25] MEDS: dilTIAZem 60 MG Tablet PO SCH ×4 (02:07→20:19)
[2018-09-25] MEDS: Oral Hygiene Kit OROPHARYNG SCH ×3 (03:34→17:07)
[2018-09-25] MEDS: Insulin NovoLIN Regular Correctional Sugar Inj SQ SCH ×4 (05:16→23:37)
[2018-09-25 06:59] LABS: Albumin 2.3 g/dL (3.4-5.0); Anion Gap 9 meq/L (5-15); Aspartate Aminotransferase 33 U/L (15-37); Blood Urea Nitrogen 25 mg/dL (7-18); Carbon Dioxide 26.7 meq/L (21.0-32.0); Chloride 111 meq/L (98-107); Glomerular Filtration Rate 79 mL/min (>89); Glucose,Random 113 mg/dL (74-106); Potassium 3.2 meq/L (3.5-5.1); Sodium 147 meq/L (136-145)
[2018-09-25 07:03] LABS: Alanine Aminotransferase 64 U/L (10-53); Alkaline Phosphatase 90 U/L (45-117); Total Protein 7.2 g/dL (6.4-8.2)
[2018-09-25] MEDS: Propofol 1000 mg/100 ml Inj 1,000 MG/100 ML BOTTLE IV.CONT PRN (07:06)
[2018-09-25] MEDS: Potassium Chloride Liq 20 MEQ/15 ML UDC NG/OG SCH ×2 (08:12→20:18)
[2018-09-25] MEDS: Senna/Docusate Sodium 8.6/50 MG Tablet PO SCH ×2 (08:12→20:20)
[2018-09-25] MEDS: Enoxaparin Inj 60 MG/0.6 ML Syringe SQ SCH ×2 (08:12→20:19)
[2018-09-25] MEDS: Famotidine PF Inj 20 MG/2 ML Vial IV.PUSH SCH ×2 (08:12→20:19)
[2018-09-25] MEDS: Chlorhexidine 0.12% Oral Kit 15 ML UDC OROPHARYNG SCH ×2 (08:14→20:19)
[2018-09-25] MEDS: Metoprolol Tartrate 100 MG Tablet G-TUBE SCH ×2 (08:14→20:19)
[2018-09-25] MEDS ORDERED: Pharmacy Ordered Lab Info OTHER ONE (11:45)
[2018-09-25] MEDS: Vancomycin Inj 1,250 MG in Sodium Chlor 0.9% Inj 250 ML IV.SIG SCH (12:44)
--- NOTE | 2018-09-25 19:38 | P.PNCC ---
Subjective Subjective Remarks/Hospital Course: 09/18: 68-year-old female past medical history of stroke, left BKA, who was on home hospice until just prior to arrival, presents for an evaluation of fever and altered mental status. According to EMS the patient had not required oxygen until beginning of this week when she had gradual increased demand of her oxygen. End-tidal CO2 prior to arrival was 6. Initial room nasal cannula saturation was 91, she was placed on nonrebreather position of comfort and transfer to emergency department. EMS related that the had elected to revoke the patient's DNR and hospice care prior to transferring her to the hospital. The patient apparently is normally a GCS of 14, apparently she does take some thickened food p.o. department the patient was severely altered with GCS of 6 on arrival E4V1M1 and was intubated by ED attending for an airway protection. 09/19: Remains sedated, orally intubated on mechanical ventilation. CT chest showed right lower lobe lung mass suspicious for malignancy. Patient has a PEG tube following previous stroke. 09/20: Remains sedated, orally intubated on mechanical ventilation. Started on tube feeds. 09/21: Remains sedated, orally intubated on mechanical ventilation. Tolerating tube feeds. Right approximately swelling noted. 09/22 Is not tolerating CPAP trial when decrease PS below 18. Daughter at bedside, says will be here later. Says they don't think they want to proceed with lung biopsy at this time, but on the other hand she discusses the possibility of re-do trach. She says they are not sure how to proceed. I suggested we meet together. Daughter states she has been bedridden since stroke about 4 years ago. Has been in group home. PEG due to dysphagia, does not eat. Speaks a little but daughter states she has declined significantly over the last 2 weeks. 09/23 No significant change. Patient does not tolerate CPAP. Family is very clear that they do not wish to pursue biopsy or diagnosis of suspected lung cancer. At this time, they wish to continue supportive care with vent and FULL CODE. 09/24 No change. Does not tolerate CPAP. Will diurese for positive fluid balance. Subjective: 09/25 Now on CPAP 20/5 and not tolerating wean. Continue attempts at diuresis to address positive fluid balance since admission Objective Vital Signs / I&O: Vital Signs 09/24/18 19:31 09/24/18 20:00 09/24/18 20:30 Temperature 98.8 F Pulse Rate 93 H 87 91 H Respiratory Rate 16 16 16 Blood Pressure 151/64 H 128/62 132/63 Pulse Oximetry 98 99 100 09/24/18 20:40 09/24/18 21:00 09/24/18 21:30 Temperature Pulse Rate 86 80 Respiratory Rate 16 16 16 Blood Pressure 135/65 122/61 Pulse Oximetry 100 100 100 09/24/18 22:00 09/24/18 22:30 09/24/18 23:00 Temperature Pulse Rate 78 82 75 Respiratory Rate 16 0 L 0 L Blood Pressure 133/58 L 123/59 L 122/60 Pulse Oximetry 100 100 100 09/24/18 23:30 09/25/18 00:00 09/25/18 00:16 Temperature 97.9 F Pulse Rate 79 71 Respiratory Rate 5 L 8 L 16 Blood Pressure 121/60 131/56 L Pulse Oximetry 100 100 100 09/25/18 00:30 09/25/18 01:00 09/25/18 01:30 Temperature Pulse Rate 77 73 82 Respiratory Rate 16 16 16 Blood Pressure 123/60 129/61 119/57 L Pulse Oximetry 100 100 100 09/25/18 02:00 09/25/18 02:01 09/25/18 02:31 Temperature Pulse Rate 78 79 81 Respiratory Rate 16 16 16 Blood Pressure 169/68 H 117/62 Pulse Oximetry 100 100 99 09/25/18 03:00 09/25/18 03:30 09/25/18 04:00 Temperature 98.4 F Pulse Rate 76 78 80 Respiratory Rate 16 16 16 Blood Pressure 130/63 132/61 131/61 Pulse Oximetry 100 100 100 09/25/18 04:10 09/25/18 04:30 09/25/18 05:00 Temperature Pulse Rate 75 79 Respiratory Rate 17 16 16 Blood Pressure 133/58 L 133/60 Pulse Oximetry 100 100 09/25/18 05:32 09/25/18 06:00 09/25/18 06:30 Temperature Pulse Rate 83 75 80 Respiratory Rate 27 H 0 L 0 L Blood Pressure 156/73 H 119/58 L 125/59 L Pulse Oximetry 100 100 100 09/25/18 07:00 09/25/18 07:03 09/25/18 07:30 Temperature Pulse Rate 75 80 82 Respiratory Rate 11 L 15 1 L Blood Pressure 143/65 H 123/63 Pulse Oximetry 100 100 100 09/25/18 08:00 09/25/18 08:01 09/25/18 08:21 Temperature 99.0 F Pulse Rate 75 79 Respiratory Rate 4 L 14 16 Blood Pressure 127/61 Pulse Oximetry 100 100 100 09/25/18 08:30 09/25/18 09:00 09/25/18 09:30 Temperature Pulse Rate 79 79 76 Respiratory Rate 16 16 16 Blood Pressure 128/61 115/64 125/60 Pulse Oximetry 100 100 100 09/25/18 10:00 09/25/18 10:30 09/25/18 11:00 Temperature Pulse Rate 72 79 85 Respiratory Rate 16 16 16 Blood Pressure 114/58 L 148/65 H 135/62 Pulse Oximetry 100 100 95 09/25/18 11:30 09/25/18 12:00 09/25/18 12:19 Temperature Pulse Rate 87 88 Respiratory Rate 19 16 15 Blood Pressure 142/67 H 114/58 L Pulse Oximetry 95 99 98 09/25/18 12:30 09/25/18 13:00 09/25/18 13:30 Temperature Pulse Rate 86 91 H 88 Respiratory Rate 24 23 28 H Blood Pressure 125/60 145/67 H 130/62 Pulse Oximetry 98 97 100 09/25/18 14:00 09/25/18 14:30 09/25/18 15:00 Temperature 98.3 F Pulse Rate 91 H 90 94 H Respiratory Rate 27 H 28 H 37 H Blood Pressure 122/64 139/63 149/68 H Pulse Oximetry 99 98 96 09/25/18 15:30 09/25/18 16:00 09/25/18 16:15 Temperature Pulse Rate 100 H 93 H Respiratory Rate 36 H 28 H 18 Blood Pressure 147/70 H 150/63 H Pulse Oximetry 94 L 93 L 99 09/25/18 16:30 09/25/18 17:00 09/25/18 17:30 Temperature Pulse Rate 94 H 93 H 91 H Respiratory Rate 24 28 H 31 H Blood Pressure 132/62 142/64 H 143/65 H Pulse Oximetry 96 97 98 09/25/18 18:00 Temperature Pulse Rate 101 H Respiratory Rate 16 Blood Pressure 126/65 Pulse Oximetry 96 Intake & Output 09/25/18 09/25/18 09/26/18 06:59 18:59 06:59 Intake Total 1838.5 / 1838.5 1482 / 1482 Output Total 1200 / 1200 1600 / 1600 Balance 638.5 / 638.5 -118 / -118 Weight 59.6 kg Intake: IV 662.5 / 662.5 408 / 408 Diprivan 1000 mg/100 ml Inj 1, 100 / 100 145 / 145 000 mg In 100 ml @ 5 MCG/KG/MIN 2.041 mls/hr IV.CONT TITRATE PRN Rx#:[id number] Zosyn 4.5 GM Premix 4.5 gm In 300 / 300 100 ml @ 200 mls/hr IV.SIG Q6H JORGE Rx#:[id number] Vancomycin Inj 1,250 MG In NS 262.5 / 262.5 Inj 250 ML @ 250 mls/hr IV.SIG Q18H JORGE Rx#:[id number] Tube Feeding 656 / 656 674 / 674 Tube Irrigant 120 / 120 Water Bolus Amount 400 / 400 400 / 400 Output: Urine 900 / 900 1000 / 1000 Stool 300 / 300 600 / 600 Other: # Incontinent Voids 3 Date of Last Bowel Movement 09/25/18 09/25/18 Result Diagrams: 09/24/18 06:05 09/25/18 06:07 Objective Remarks: GENERAL: Well-nourished, well-developed patient who is orotracheally intubated. SKIN: Warm and dry. HEAD: Atraumatic. Normocephalic. EYES: Pupils equal and round. No scleral icterus. No injection or drainage. ENT: No nasal bleeding or discharge. Mucous membranes pink and moist. NECK: Trachea midline. No JVD. CARDIOVASCULAR: Regular rate and rhythm. No murmurs rubs or gallops. RESPIRATORY: Orotracheally intubated on mechanical ventilation. Rhonchorous breath sounds, diminished right base. No wheeze or rales. GASTROINTESTINAL: Abdomen soft, non-tender, nondistended. PEG in place, tube feeds running. MUSCULOSKELETAL: Extremities without clubbing, cyanosis, or edema. s/p L AKA. NEUROLOGICAL: Awakens, looks around. Blinks and squeezes hand to command Assessment and Plan - Assessment and Plan Plan: NEURO: History of stroke Propofol for sedation RESP: Acute respiratory failure on mechanical ventilation Emphysema Lung mass History of prior trach after stroke, has been subsequently decannulated Discussed with daughter and Dr. De Jesus. not wishing to pursue CT-guided biopsy. Daily CPAP trials. Vent bundle/nebs. Mechanical ventilation day #8. I have discussed comfort care vs trach with family. Their wishes are unclear as of now. Lasix 40 mg IV q8H. KCL 20 MEQ q8H Steroids stopped. CV: HTN Monitor BP//heart rate. Continue metoprolol 100 bid. Continue cardizem 60q6. GI: PEG in place. Glucerna tube feeds. FEN/RENAL: Acute hypernatremia Hypokalemia resolved Give free water flushes via PEG. ID: HCAP UTI Urine culture from 09/18 with providentia and Proteus. Urine and sputum cultures negative Completed 8 day course of zosyn. HEME: R brachial DVT Lovenox 60 mg subcu every 12 hours. I am avoiding transition to warfarin/NOAC at this time due to unclear plan regarding trach. ENDO: Diabetes mellitus Insulin sliding scale PROPH: SCD/Lovenox for DVT prophylaxis. Famotidine for stress ulcer prophylaxis. ACCESS: PIV x2. Full code Have been discussing goals of care with family. Comfort care would be appropriate from medical standpoint but family struggling with the idea of removing her from life support. On the other hand, also feels he would not want to trach her again. Level 2 followup.
[2018-09-26] MEDS: Oral Hygiene Kit OROPHARYNG SCH ×5 (02:27→23:14)
[2018-09-26] MEDS: Propofol 1000 mg/100 ml Inj 1,000 MG/100 ML BOTTLE IV.CONT PRN ×2 (02:27→17:14)
[2018-09-26] MEDS: Potassium Chloride Liq 20 MEQ/15 ML UDC NG/OG SCH ×3 (03:14→20:09)
[2018-09-26] MEDS: dilTIAZem 60 MG Tablet PO SCH ×4 (03:14→20:09)
[2018-09-26] MEDS: Insulin NovoLIN Regular Correctional Sugar Inj SQ SCH ×4 (06:17→23:13)
[2018-09-26 06:32] LABS: Baso % (Auto) 0.2 % (0.0-2.0); Eos # (Auto) 0.5 th/mm3 (0.0-0.4); Eos % (Auto) 4.3 % (0.0-4.0); Hematocrit 33.5 % (35.0-46.0); Hemoglobin 10.2 gm/dL (11.6-15.3); Lymph # (Auto) 1.5 th/mm3 (1.0-4.8); Lymph % (Auto) 12.2 % (9.0-44.0); Mean Corpuscular Hemoglobin 23.2 pg (27.0-34.0); Mean Platelet Volume 10.9 fL (7.0-11.0); Mono # (Auto) 0.7 th/mm3 (0.0-0.9); Mono % (Auto) 6.1 % (0.0-8.0); Neut # (Auto) 9.2 th/mm3 (1.8-7.7); Neut % (Auto) 77.2 % (16.0-70.0); Platelet Count 306 th/mm3 (150-450); Red Blood Count 4.41 mil/mm3 (4.00-5.30); Red Cell Distribution Width 20.2 % (11.6-17.2); White Blood Count 11.9 th/mm3 (4.0-11.0)
[2018-09-26 06:36] LABS: Alanine Aminotransferase 63 U/L (10-53); Albumin 2.5 g/dL (3.4-5.0); Anion Gap 8 meq/L (5-15); Aspartate Aminotransferase 27 U/L (15-37); Blood Urea Nitrogen 22 mg/dL (7-18); Calcium 8.7 mg/dL (8.5-10.1); Chloride 110 meq/L (98-107); Glomerular Filtration Rate 89 mL/min (>89); Glucose,Random 125 mg/dL (74-106); Potassium 3.4 meq/L (3.5-5.1); Sodium 146 meq/L (136-145)
[2018-09-26 06:39] LABS: Alkaline Phosphatase 103 U/L (45-117); Vancomycin,Random 27.5 Comment
[2018-09-26 07:15] LABS: Mean Corpuscular HGB Conc 30.5 % (32.0-36.0)
[2018-09-26] MEDS: Famotidine PF Inj 20 MG/2 ML Vial IV.PUSH SCH ×2 (09:38→20:10)
[2018-09-26] MEDS: Enoxaparin Inj 60 MG/0.6 ML Syringe SQ SCH ×2 (09:38→20:09)
[2018-09-26] MEDS: Senna/Docusate Sodium 8.6/50 MG Tablet PO SCH ×2 (09:38→20:09)
[2018-09-26] MEDS: Metoprolol Tartrate 100 MG Tablet G-TUBE SCH ×2 (09:38→20:09)
[2018-09-26] MEDS: Chlorhexidine 0.12% Oral Kit 15 ML UDC OROPHARYNG SCH ×2 (09:38→20:10)
[2018-09-26] MEDS: Potassium Chloride Liq 20 MEQ/15 ML UDC PO PRN (09:48)
--- NOTE | 2018-09-26 09:53 | P.PNCC ---
Subjective Subjective Remarks/Hospital Course: 09/18: 68-year-old female past medical history of stroke, left BKA, who was on home hospice until just prior to arrival, presents for an evaluation of fever and altered mental status. According to EMS the patient had not required oxygen until beginning of this week when she had gradual increased demand of her oxygen. End-tidal CO2 prior to arrival was 6. Initial room nasal cannula saturation was 91, she was placed on nonrebreather position of comfort and transfer to emergency department. EMS related that the had elected to revoke the patient's DNR and hospice care prior to transferring her to the hospital. The patient apparently is normally a GCS of 14, apparently she does take some thickened food p.o. department the patient was severely altered with GCS of 6 on arrival [id number] and was intubated by ED attending for an airway protection. 09/19: Remains sedated, orally intubated on mechanical ventilation. CT chest showed right lower lobe lung mass suspicious for malignancy. Patient has a PEG tube following previous stroke. 09/20: Remains sedated, orally intubated on mechanical ventilation. Started on tube feeds. 09/21: Remains sedated, orally intubated on mechanical ventilation. Tolerating tube feeds. Right approximately swelling noted. 09/22 Is not tolerating CPAP trial when decrease PS below 18. Daughter at bedside, says will be here later. Says they don't think they want to proceed with lung biopsy at this time, but on the other hand she discusses the possibility of re-do trach. She says they are not sure how to proceed. I suggested we meet together. Daughter states she has been bedridden since stroke about 4 years ago. Has been in detention. PEG due to dysphagia, does not eat. Speaks a little but daughter states she has declined significantly over the last 2 weeks. 09/23 No significant change. Patient does not tolerate CPAP. Family is very clear that they do not wish to pursue biopsy or diagnosis of suspected lung cancer. At this time, they wish to continue supportive care with vent and FULL CODE. 09/24 No change. Does not tolerate CPAP. Will diurese for positive fluid balance. Subjective: 09/25 Now on CPAP 20/5 and not tolerating wean. Continue attempts at diuresis to address positive fluid balance since admission 09/26: Remains sedated, orally intubated on mechanical ventilation. Hold CPAP trials yesterday Objective Vital Signs / I&O: Vital Signs 09/25/18 10:00 09/25/18 10:30 09/25/18 11:00 Temperature Pulse Rate 72 79 85 Respiratory Rate 16 16 16 Blood Pressure 114/58 L 148/65 H 135/62 Pulse Oximetry 100 100 95 09/25/18 11:30 09/25/18 12:00 09/25/18 12:19 Temperature Pulse Rate 87 88 Respiratory Rate 19 16 15 Blood Pressure 142/67 H 114/58 L Pulse Oximetry 95 99 98 09/25/18 12:30 09/25/18 13:00 09/25/18 13:30 Temperature Pulse Rate 86 91 H 88 Respiratory Rate 24 23 28 H Blood Pressure 125/60 145/67 H 130/62 Pulse Oximetry 98 97 100 09/25/18 14:00 09/25/18 14:30 09/25/18 15:00 Temperature 98.3 F Pulse Rate 91 H 90 94 H Respiratory Rate 27 H 28 H 37 H Blood Pressure 122/64 139/63 149/68 H Pulse Oximetry 99 98 96 09/25/18 15:30 09/25/18 16:00 09/25/18 16:15 Temperature Pulse Rate 100 H 93 H Respiratory Rate 36 H 28 H 18 Blood Pressure 147/70 H 150/63 H Pulse Oximetry 94 L 93 L 99 09/25/18 16:30 09/25/18 17:00 09/25/18 17:30 Temperature Pulse Rate 94 H 93 H 91 H Respiratory Rate 24 28 H 31 H Blood Pressure 132/62 142/64 H 143/65 H Pulse Oximetry 96 97 98 09/25/18 18:00 09/25/18 18:30 09/25/18 19:00 Temperature Pulse Rate 101 H 101 H 105 H Respiratory Rate 16 11 L 9 L Blood Pressure 126/65 139/65 158/72 H Pulse Oximetry 96 97 92 L 09/25/18 19:30 09/25/18 20:00 09/25/18 20:30 Temperature Pulse Rate 101 H 101 H 99 H Respiratory Rate 16 13 14 Blood Pressure 144/66 H 142/66 H 137/64 Pulse Oximetry 98 99 100 09/25/18 20:41 09/25/18 21:00 09/25/18 21:30 Temperature Pulse Rate 99 H 96 H 100 H Respiratory Rate 16 16 16 Blood Pressure 126/83 137/63 Pulse Oximetry 100 95 97 09/25/18 22:00 09/25/18 22:30 09/25/18 23:00 Temperature Pulse Rate 100 H 101 H 101 H Respiratory Rate 16 16 17 Blood Pressure 117/60 124/60 130/68 Pulse Oximetry 97 99 100 09/25/18 23:30 09/26/18 00:00 09/26/18 00:09 Temperature Pulse Rate 101 H 104 H Respiratory Rate 16 16 16 Blood Pressure 127/59 L 138/65 Pulse Oximetry 98 99 100 09/26/18 00:30 09/26/18 01:00 09/26/18 01:30 Temperature Pulse Rate 103 H 104 H 104 H Respiratory Rate 16 16 16 Blood Pressure 126/60 131/61 133/63 Pulse Oximetry 100 100 97 09/26/18 02:00 09/26/18 02:30 09/26/18 03:00 Temperature Pulse Rate 107 H 109 H 105 H Respiratory Rate 16 16 16 Blood Pressure 158/69 H 128/60 117/57 L Pulse Oximetry 98 100 100 09/26/18 03:30 09/26/18 04:00 09/26/18 04:03 Temperature Pulse Rate 109 H 109 H Respiratory Rate 16 16 16 Blood Pressure 120/60 130/59 L Pulse Oximetry 100 100 100 09/26/18 06:00 09/26/18 07:20 09/26/18 07:55 Temperature Pulse Rate 109 H Respiratory Rate 16 16 Blood Pressure Pulse Oximetry 100 97 Intake & Output 09/25/18 09/26/18 09/26/18 18:59 06:59 18:59 Intake Total 1482 / 1482 1096 / 1096 Output Total 1600 / 1600 1600 / 1600 Balance -118 / -118 -504 / -504 Weight 58.6 kg Intake: IV 408 / 408 55 / 55 Diprivan 1000 mg/100 ml Inj 1, 145 / 145 55 / 55 000 mg In 100 ml @ 5 MCG/KG/MIN 2.041 mls/hr IV.CONT TITRATE PRN Rx#:[id number] Tube Feeding 674 / 674 641 / 641 Water Bolus Amount 400 / 400 400 / 400 Output: Urine 1000 / 1000 1500 / 1500 Stool 600 / 600 100 / 100 Other: # Incontinent Voids 3 Date of Last Bowel Movement 09/25/18 09/26/18 Result Diagrams: 09/26/18 05:01 09/26/18 05:01 Objective Remarks: GENERAL: Well-nourished, well-developed patient who is orotracheally intubated. SKIN: Warm and dry. HEAD: Atraumatic. Normocephalic. EYES: Pupils equal and round. No scleral icterus. No injection or drainage. ENT: No nasal bleeding or discharge. Mucous membranes pink and moist. NECK: Trachea midline. No JVD. CARDIOVASCULAR: Regular rate and rhythm. No murmurs rubs or gallops. RESPIRATORY: Orotracheally intubated on mechanical ventilation. Rhonchorous breath sounds, diminished right base. No wheeze or rales. GASTROINTESTINAL: Abdomen soft, non-tender, nondistended. PEG in place, tube feeds running. MUSCULOSKELETAL: Extremities without clubbing, cyanosis, or edema. s/p L AKA. NEUROLOGICAL: Awakens, looks around. Blinks and squeezes hand to command Assessment and Plan - Assessment and Plan Plan: NEURO: History of stroke Propofol for sedation RESP: Acute respiratory failure on mechanical ventilation Emphysema Lung mass History of prior trach after stroke, has been subsequently decannulated Discussed with daughter and Dr. De Jesus. not wishing to pursue CT-guided biopsy. Daily CPAP trials. Vent bundle/nebs. Mechanical ventilation day #9. Dr. Carter discussed comfort care vs trach with family on 09/25. Their wishes are unclear as of now. Lasix 40 mg IV q8H. KCL 20 MEQ q8H Steroids stopped. CV: HTN Monitor BP//heart rate. Continue metoprolol 100 bid. Continue cardizem 60q6. GI: PEG in place. Glucerna tube feeds. FEN/RENAL: Acute hypernatremia Hypokalemia resolved Give free water flushes via PEG. ID: HCAP UTI Urine culture from 09/18 with providentia and Proteus. Urine and sputum cultures negative Completed 8 day course of zosyn. HEME: R brachial DVT Lovenox 60 mg subcu every 12 hours. I am avoiding transition to warfarin/NOAC at this time due to unclear plan regarding trach. ENDO: Diabetes mellitus Insulin sliding scale PROPH: SCD/Lovenox for DVT prophylaxis. Famotidine for stress ulcer prophylaxis. ACCESS: PIV x2. Full code Dr. Carter discussed goals of care with family. Comfort care would be appropriate from medical standpoint but family struggling with the idea of removing her from life support. On the other hand, also feels he would not want to trach her again.
[2018-09-26] MEDS: Vancomycin Inj 1,000 MG in Sodium Chlor 0.9% Inj 250 ML IV.SIG SCH (18:10)
[2018-09-27] MEDS: Propofol 1000 mg/100 ml Inj 1,000 MG/100 ML BOTTLE IV.CONT PRN ×2 (01:43→15:39)
[2018-09-27] MEDS: dilTIAZem 60 MG Tablet PO SCH ×4 (03:32→20:07)
[2018-09-27] MEDS: Potassium Chloride Liq 20 MEQ/15 ML UDC NG/OG SCH (03:32)
[2018-09-27] MEDS: Oral Hygiene Kit OROPHARYNG SCH ×3 (03:32→17:18)
[2018-09-27] MEDS: Insulin NovoLIN Regular Correctional Sugar Inj SQ SCH ×3 (05:14→17:18)
[2018-09-27 06:39] LABS: Alanine Aminotransferase 52 U/L (10-53); Albumin 2.5 g/dL (3.4-5.0); Alkaline Phosphatase 94 U/L (45-117); Anion Gap 8 meq/L (5-15); Aspartate Aminotransferase 25 U/L (15-37); Blood Urea Nitrogen 32 mg/dL (7-18); Calcium 8.7 mg/dL (8.5-10.1); Carbon Dioxide 28.3 meq/L (21.0-32.0); Chloride 114 meq/L (98-107); Glomerular Filtration Rate 59 mL/min (>89); Glucose,Random 148 mg/dL (74-106); Potassium 4.5 meq/L (3.5-5.1); Sodium 150 meq/L (136-145)
--- NOTE | 2018-09-27 07:43 | P.PNCC ---
Subjective Subjective Remarks/Hospital Course: 09/18: 68-year-old female past medical history of stroke, left BKA, who was on home hospice until just prior to arrival, presents for an evaluation of fever and altered mental status. According to EMS the patient had not required oxygen until beginning of this week when she had gradual increased demand of her oxygen. End-tidal CO2 prior to arrival was 6. Initial room nasal cannula saturation was 91, she was placed on nonrebreather position of comfort and transfer to emergency department. EMS related that the had elected to revoke the patient's DNR and hospice care prior to transferring her to the hospital. The patient apparently is normally a GCS of 14, apparently she does take some thickened food p.o. department the patient was severely altered with GCS of 6 on arrival E4V1M1 and was intubated by ED attending for an airway protection. 09/19: Remains sedated, orally intubated on mechanical ventilation. CT chest showed right lower lobe lung mass suspicious for malignancy. Patient has a PEG tube following previous stroke. 09/20: Remains sedated, orally intubated on mechanical ventilation. Started on tube feeds. 09/21: Remains sedated, orally intubated on mechanical ventilation. Tolerating tube feeds. Right approximately swelling noted. 09/22 Is not tolerating CPAP trial when decrease PS below 18. Daughter at bedside, says will be here later. Says they don't think they want to proceed with lung biopsy at this time, but on the other hand she discusses the possibility of re-do trach. She says they are not sure how to proceed. I suggested we meet together. Daughter states she has been bedridden since stroke about 4 years ago. Has been in group home. PEG due to dysphagia, does not eat. Speaks a little but daughter states she has declined significantly over the last 2 weeks. 09/23 No significant change. Patient does not tolerate CPAP. Family is very clear that they do not wish to pursue biopsy or diagnosis of suspected lung cancer. At this time, they wish to continue supportive care with vent and FULL CODE. 09/24 No change. Does not tolerate CPAP. Will diurese for positive fluid balance. Subjective: 09/25 Now on CPAP 20/5 and not tolerating wean. Continue attempts at diuresis to address positive fluid balance since admission 09/26: Remains sedated, orally intubated on mechanical ventilation. Hold CPAP trials yesterday 09/27 Patient is sedated with Diprivan and intubated. Tolerating tube feeds. Afebrile. Objective Vital Signs / I&O: Vital Signs 09/26/18 07:30 09/26/18 07:55 09/26/18 08:00 Temperature 98.3 F Pulse Rate 112 H 110 H Respiratory Rate 16 16 17 Blood Pressure 122/58 L 129/61 Pulse Oximetry 100 97 100 09/26/18 08:30 09/26/18 09:00 09/26/18 09:30 Temperature Pulse Rate 113 H 113 H 110 H Respiratory Rate 15 15 13 Blood Pressure 132/60 121/58 L 118/57 L Pulse Oximetry 100 100 100 09/26/18 09:50 09/26/18 10:00 09/26/18 10:30 Temperature Pulse Rate 113 H 103 H Respiratory Rate 16 16 16 Blood Pressure 134/64 110/59 L Pulse Oximetry 100 100 100 09/26/18 11:00 09/26/18 11:30 09/26/18 12:00 Temperature 98.5 F Pulse Rate 97 H 93 H 91 H Respiratory Rate 16 16 16 Blood Pressure 111/59 L 116/59 L 98/56 L Pulse Oximetry 100 100 100 09/26/18 12:12 09/26/18 12:30 09/26/18 13:00 Temperature Pulse Rate 93 H 96 H Respiratory Rate 16 16 16 Blood Pressure 119/59 L 118/56 L Pulse Oximetry 100 100 100 09/26/18 13:30 09/26/18 14:00 09/26/18 14:30 Temperature Pulse Rate 96 H 97 H 98 H Respiratory Rate 16 16 16 Blood Pressure 114/55 L 115/55 L 110/56 L Pulse Oximetry 100 100 100 09/26/18 15:00 09/26/18 15:30 09/26/18 15:52 Temperature Pulse Rate 101 H 103 H Respiratory Rate 16 16 17 Blood Pressure 118/58 L 122/58 L Pulse Oximetry 100 100 100 09/26/18 16:00 09/26/18 16:30 09/26/18 17:00 Temperature Pulse Rate 96 H 99 H 100 H Respiratory Rate 16 9 L 16 Blood Pressure 117/66 118/60 113/58 L Pulse Oximetry 100 100 98 09/26/18 17:30 09/26/18 18:00 09/26/18 18:41 Temperature Pulse Rate 99 H 99 H 105 H Respiratory Rate 16 10 L 48 H Blood Pressure 103/61 103/56 L 139/64 Pulse Oximetry 94 L 93 L 100 09/26/18 19:00 09/26/18 19:30 09/26/18 20:00 Temperature Pulse Rate 109 H 108 H 108 H Respiratory Rate 0 L 11 L 16 Blood Pressure 118/63 115/58 L 119/60 Pulse Oximetry 100 100 98 09/26/18 20:22 09/26/18 20:30 09/26/18 21:00 Temperature Pulse Rate 108 H 100 H Respiratory Rate 16 12 16 Blood Pressure 113/61 106/58 L Pulse Oximetry 98 96 98 09/26/18 21:30 09/26/18 22:00 09/26/18 22:30 Temperature Pulse Rate 101 H 101 H 101 H Respiratory Rate 16 13 16 Blood Pressure 112/58 L 113/58 L 147/63 H Pulse Oximetry 99 98 97 09/26/18 23:00 09/26/18 23:30 09/26/18 23:46 Temperature Pulse Rate 109 H 108 H Respiratory Rate 0 L 16 17 Blood Pressure 108/57 L 100/58 L Pulse Oximetry 100 99 100 09/27/18 00:00 09/27/18 00:30 09/27/18 01:00 Temperature Pulse Rate 111 H 109 H 108 H Respiratory Rate 16 16 16 Blood Pressure 92/57 L 96/54 L 101/59 L Pulse Oximetry 100 100 100 09/27/18 01:30 09/27/18 02:00 09/27/18 02:30 Temperature Pulse Rate 108 H 110 H 107 H Respiratory Rate 16 19 18 Blood Pressure 106/55 L 100/56 L 132/59 L Pulse Oximetry 100 100 100 09/27/18 03:00 09/27/18 03:30 09/27/18 04:00 Temperature Pulse Rate 108 H 104 H 107 H Respiratory Rate 18 16 16 Blood Pressure 104/56 L 113/58 L 103/57 L Pulse Oximetry 99 100 99 09/27/18 04:38 09/27/18 06:00 Temperature Pulse Rate 107 H Respiratory Rate 16 Blood Pressure Pulse Oximetry 99 Intake & Output 09/26/18 09/27/18 09/27/18 18:59 06:59 18:59 Intake Total 846 / 846 1367 / 1367 Output Total 550 / 550 650 / 650 Balance 296 / 296 717 / 717 Weight 56.7 kg Intake: IV 75 / 75 350 / 350 Diprivan 1000 mg/100 ml Inj 1, 75 / 75 100 / 100 000 mg In 100 ml @ 5 MCG/KG/MIN 2.041 mls/hr IV.CONT TITRATE PRN Rx#:[id number] Vancomycin Inj 1,000 MG In NS 250 / 250 Inj 250 ML @ 250 mls/hr IV.SIG Q24H JORGE Rx#:[id number] Tube Feeding 771 / 771 617 / 617 Water Bolus Amount 400 / 400 Output: Urine 550 / 550 650 / 650 Other: # Incontinent Voids 2 1 Date of Last Bowel Movement 09/26/18 09/27/18 Result Diagrams: 09/26/18 05:01 09/27/18 05:31 Other Results: Laboratory Results - last 12 hr 09/27/18 05:31 Sodium 150 H Potassium 4.5 D Chloride 114 H Carbon Dioxide 28.3 Anion Gap 8 BUN 32 H Creatinine 1.11 H Estimated GFR 59 L Random Glucose 148 H Calcium 8.7 Total Bilirubin 0.3 AST 25 ALT 52 Alkaline Phosphatase 94 Total Protein 8.0 Albumin 2.5 L Imaging: Head CT 09/18/18 18:40 CONCLUSION: 1. Stable appearance of the brain. Marked ventriculomegaly and white matter disease. . Chest CTA 09/18/18 19:26 CONCLUSION: 1. There is no evidence for pulmonary embolism. 2. Severe emphysema. 3. There is a large soft tissue mass in the right lower lobe suspicious for malignancy until proven otherwise. Venous Doppler Study 09/21/18 00:00 CONCLUSION: 1. There is occlusive thrombus within the right cephalic and brachial veins. Chest X-Ray 09/22/18 05:00 CONCLUSION: Unchanged bibasilar consolidation particularly on the right. Objective Remarks: GENERAL: Well-nourished, well-developed patient who is orotracheally intubated. SKIN: Warm and dry. HEAD: Atraumatic. Normocephalic. EYES: Pupils equal and round. No scleral icterus. No injection or drainage. ENT: No nasal bleeding or discharge. Mucous membranes pink and moist. NECK: Trachea midline. No JVD. CARDIOVASCULAR: Regular rate and rhythm. No murmurs rubs or gallops. RESPIRATORY: Orotracheally intubated on mechanical ventilation. Rhonchorous breath sounds, diminished right base. No wheeze or rales. GASTROINTESTINAL: Abdomen soft, non-tender, nondistended. PEG in place, tube feeds running. MUSCULOSKELETAL: Extremities without clubbing, cyanosis, or edema. s/p L AKA. NEUROLOGICAL: Awakens, looks around. Blinks and squeezes hand to command Assessment and Plan - Assessment and Plan Plan: NEURO: History of stroke Propofol for sedation. Daily sedation vacation. Monitor neuro status RESP: Acute respiratory failure on mechanical ventilation Emphysema Lung mass History of prior trach after stroke, has been subsequently decannulated Per Dr. De Jesus. not wishing to pursue CT-guided biopsy. Continue with vent support keep sats >92% Daily CPAP trials. Vent bundle/nebs. Dr. Carter discussed comfort care vs trach with family on 09/25. Their wishes are unclear as of now. Check CXR CV: HTN Monitor BP//heart rate keep MAP>65mmHg. Continue metoprolol 100 bid, Cardizem 60mg q6. GI: PEG in place. Glucerna 1.5 @60ml/hr FEN/RENAL: Acute hypernatremia Hypokalemia resolved Monitor renal function, I/O's, electrolytes replacement per protocol. Increase Free water 250ml Q8 , d/c Lasix Place on D5W@42ml/hr ID: HCAP UTI Urine culture from 09/18 with providentia and Proteus. Urine and sputum cultures negative Completed 8 day course of zosyn. HEME: R brachial DVT Lovenox 60 mg subcu every 12 hours. I am avoiding transition to warfarin/NOAC at this time due to unclear plan regarding trach. ENDO: Diabetes mellitus Insulin sliding scale PROPH: SCD/Lovenox for DVT prophylaxis. Famotidine for stress ulcer prophylaxis. ACCESS: PIV x2. Full code Dr. Carter discussed goals of care with family. Comfort care would be appropriate from medical standpoint but family struggling with the idea of removing her from life support. On the other hand, also feels he would not want to trach her again.
[2018-09-27] MEDS: Dextrose 5% in Water Inj 1,000 ML IV.CONT SCH (08:01)
[2018-09-27] MEDS: Senna/Docusate Sodium 8.6/50 MG Tablet PO SCH ×2 (08:05→20:08)
[2018-09-27] MEDS: Chlorhexidine 0.12% Oral Kit 15 ML UDC OROPHARYNG SCH ×2 (08:06→20:06)
[2018-09-27] MEDS: Famotidine PF Inj 20 MG/2 ML Vial IV.PUSH SCH ×2 (08:06→20:07)
[2018-09-27] MEDS: Enoxaparin Inj 60 MG/0.6 ML Syringe SQ SCH ×2 (08:06→20:07)
[2018-09-27] MEDS: Metoprolol Tartrate 100 MG Tablet G-TUBE SCH ×2 (08:06→21:25)
--- NOTE | 2018-09-27 08:36 | XR ---
EXAM DATE: 09/27/2018 8:19 AM EST AGE/SEX: 68 years / Female INDICATIONS: Respiratory distress. CLINICAL DATA: This is the patient's subsequent encounter. Patient reports that signs and symptoms h ave been present for 1 week and indicates a pain score of Nonresponsive. MEDICAL/SURGICAL HISTORY: . Hypertension. Diabetes. None. COMPARISON: [facility] [place] 1V SINGLE AP, 09/22/2018. . FINDINGS: Right lung base consolidation is present which is worse since the prior study from 5 days a go measures 7.6 cm, it measured 6.1 cm. Previously seen NG tube has been removed. ET tube is present with tip overlapping approximately 3 above the mila. CONCLUSION: Enlarging right lung base consolidation since 5 days ago. Electronically signed by: Maru Willard MD Board Certified Radiologist 09/27/2018 8:34 AM EST
[2018-09-27 08:42] LABS: Baso # (Auto) 0.1 th/mm3 (0.0-0.2); Baso % (Auto) 0.8 % (0.0-2.0); Eos # (Auto) 0.4 th/mm3 (0.0-0.4); Eos % (Auto) 3.2 % (0.0-4.0); Hematocrit 32.3 % (35.0-46.0); Hemoglobin 9.5 gm/dL (11.6-15.3); Lymph # (Auto) 1.9 th/mm3 (1.0-4.8); Lymph % (Auto) 14.1 % (9.0-44.0); Mean Corpuscular Hemoglobin 22.8 pg (27.0-34.0); Mean Corpuscular Volume 77.6 fL (80.0-100.0); Mean Platelet Volume 10.2 fL (7.0-11.0); Mono # (Auto) 0.9 th/mm3 (0.0-0.9); Mono % (Auto) 6.7 % (0.0-8.0); Neut # (Auto) 10.2 th/mm3 (1.8-7.7); Neut % (Auto) 75.2 % (16.0-70.0); Platelet Count 274 th/mm3 (150-450); Red Blood Count 4.16 mil/mm3 (4.00-5.30); Red Cell Distribution Width 20.7 % (11.6-17.2); White Blood Count 13.6 th/mm3 (4.0-11.0)
[2018-09-27 08:43] LABS: Mean Corpuscular HGB Conc 29.3 % (32.0-36.0)
--- NOTE | 2018-09-27 16:15 | P.DIET ---
Nutritional Evaluation Type of nutrition evaluation: follow-up Nutrition consult regarding: Tube Feeding Objective - Diagnosis Fever, AMS - Objective Part of Body Amputated: Left above knee (12%) [place] body weight: 50 kg (adj IBW 44kg, adjBW: 53.6kg) % IBW: 139 Energy Needs - Lower Range (kCal/kg): 28 Energy Needs - Upper Range (kCal/kg): 33 Lower Limit kCal/kg (kCals): 1,501 Upper Limit kCal/kg (kCals): 1,769 Lower Limit Protein Factor (Grams per Kg): 1.2 Upper Limit Protein Factor (Grams per Kg): 1.5 Lower Protein Needs (Protein): 64 Upper Protein Needs (Protein): 80 Dietitian Reviewed in Medical Record: Current diet, Curent medications, Intake & Output, Labs, Medical history, Tube feeding Diet Order: NPO Objective Comments: PMH: stroke, DM, Dysphagia, HTN, Hemiparesis, L AKA, PEG placement Labs include: BUN 32, Cr 1.11, estGFR 59, POC glucose 128 164 186 Meds include: propofol, novolin LBM 09/27/18 Pt's nutritional needs based on AdjBW of 53.6kg r/t L AKA Assessment Assessment: Pt remains at nutritional risk r/t need for a TF for nutrition support. Pt intubated and sed[facility] on propofol[facility] P[facility] TF currently at Glucerna 1.5 @ 60mL/hr per MD. To best meet pt's needs, RD continue to recommend TF Glucerna 1.5 with goal rate of 45ml/hr to provide 1620kcals, 89gms protein and 820mls free water. Propofol adds kcals when running. Will monitor TF tolerance, clinical course. Labs reviewed, dietitian following. Brought forward: Noted pt was on hospice with a DNR which removed upon admission. Recommendations: TF Glucerna 1.5 with goal rate 45ml/hr Dietitian to Monitor: Lab values, Glucose level, Intake & Output, Tube feeding tolerance, Weight change, Wound/skin status, Medical course
[2018-09-27] MEDS: Vancomycin Inj 1,000 MG in Sodium Chlor 0.9% Inj 250 ML IV.SIG SCH (17:18)
--- NOTE | 2018-09-27 18:14 | P.PNPAL ---
Reason for Visit Reason for visit: a. To assist with evaluation and management of symptoms including: dyspnea, pain. b. To assist medical decision maker(s) with: better understanding of current medical conditions; weighing benefits/burdens of medical treatment options; making medical treatment decisions. Subjective Subjective/Interval History: Patient seen and examined in ICU. Daughter, Brea at bedside. Patient is sedated on mech vent. She does not arouse to voice or exam. Does not follow commands or nod yes/no to questions today. No signs of pain. WBC increased to 13.6. Creatinine increased from 0.78 to 1.11. Discussed with Dr. Hollis who asked we speak with family regarding trach. Following my meeting with and daughter, Dr. Hollis and nursing staff notified family wants to proceed with tracheostomy. Goals remain aggressive. Family/Friend Interactions: Spoke with and daughter at bedside. Dr. De Jesus and I met with them, to explain poor prognosis. Family wants to proceed with tracheostomy, stating patient "had one before." Goals remain aggressive FULL CODE and tracheostomy. Advance Directives Living Will: Never completed Health Care Surrogate: Never completed Durable Power of Business Technology Analyst: Never completed Health Care Surrogate Name and Number: Health Care Proxy, spouse: Nazario Deutscht : [phone] Documented care wishes:: Has [place] DNR order signed by spouse in 2014, he has since rescinded DNR and revoked hospice services. Significant change in goals:: FULL CODE. Goals remain aggressive. Family wants to proceed with tracheostomy. Objective Vital Signs: Vital Signs 09/26/18 18:41 09/26/18 19:00 09/26/18 19:30 Temperature Pulse Rate 105 H 109 H 108 H Respiratory Rate 48 H 0 L 11 L Blood Pressure 139/64 118/63 115/58 L Pulse Oximetry 100 100 100 09/26/18 20:00 09/26/18 20:22 09/26/18 20:30 Temperature Pulse Rate 108 H 108 H Respiratory Rate 16 16 12 Blood Pressure 119/60 113/61 Pulse Oximetry 98 98 96 09/26/18 21:00 09/26/18 21:30 09/26/18 22:00 Temperature Pulse Rate 100 H 101 H 101 H Respiratory Rate 16 16 13 Blood Pressure 106/58 L 112/58 L 113/58 L Pulse Oximetry 98 99 98 09/26/18 22:30 09/26/18 23:00 09/26/18 23:30 Temperature Pulse Rate 101 H 109 H 108 H Respiratory Rate 16 0 L 16 Blood Pressure 147/63 H 108/57 L 100/58 L Pulse Oximetry 97 100 99 09/26/18 23:46 09/27/18 00:00 09/27/18 00:30 Temperature Pulse Rate 111 H 109 H Respiratory Rate 17 16 16 Blood Pressure 92/57 L 96/54 L Pulse Oximetry 100 100 100 09/27/18 01:00 09/27/18 01:30 09/27/18 02:00 Temperature Pulse Rate 108 H 108 H 110 H Respiratory Rate 16 16 19 Blood Pressure 101/59 L 106/55 L 100/56 L Pulse Oximetry 100 100 100 09/27/18 02:30 09/27/18 03:00 09/27/18 03:30 Temperature Pulse Rate 107 H 108 H 104 H Respiratory Rate 18 18 16 Blood Pressure 132/59 L 104/56 L 113/58 L Pulse Oximetry 100 99 100 09/27/18 04:00 09/27/18 04:30 09/27/18 04:38 Temperature Pulse Rate 107 H 105 H Respiratory Rate 16 16 16 Blood Pressure 103/57 L 103/57 L Pulse Oximetry 99 99 99 09/27/18 05:00 09/27/18 05:30 09/27/18 06:00 Temperature Pulse Rate 106 H 107 H 109 H Respiratory Rate 16 16 16 Blood Pressure 111/57 L 102/59 L 110/58 L Pulse Oximetry 100 99 100 09/27/18 06:30 09/27/18 07:00 09/27/18 07:30 Temperature Pulse Rate 109 H 110 H 109 H Respiratory Rate 16 16 16 Blood Pressure 98/54 L 103/56 L 94/55 L Pulse Oximetry 99 99 99 09/27/18 08:00 09/27/18 08:12 09/27/18 08:23 Temperature Pulse Rate 109 H 102 H Respiratory Rate 16 16 16 Blood Pressure 100/56 L Pulse Oximetry 99 100 09/27/18 08:30 09/27/18 09:00 09/27/18 09:30 Temperature Pulse Rate 107 H 100 H 97 H Respiratory Rate 16 16 16 Blood Pressure 98/56 L 94/53 L 95/51 L Pulse Oximetry 100 100 100 09/27/18 10:00 09/27/18 10:30 09/27/18 11:00 Temperature 98.1 F Pulse Rate 108 H 103 H 101 H Respiratory Rate 16 16 16 Blood Pressure 106/55 L 101/58 L 102/56 L Pulse Oximetry 98 99 99 09/27/18 11:06 09/27/18 11:30 09/27/18 12:00 Temperature Pulse Rate 101 H 103 H 107 H Respiratory Rate 16 16 16 Blood Pressure 95/50 L 103/59 L Pulse Oximetry 99 99 98 09/27/18 12:30 09/27/18 13:00 09/27/18 13:30 Temperature Pulse Rate 106 H 105 H 103 H Respiratory Rate 16 16 17 Blood Pressure 99/58 L 99/57 L 105/58 L Pulse Oximetry 98 97 98 09/27/18 14:00 09/27/18 14:30 09/27/18 14:32 Temperature Pulse Rate 113 H 104 H 108 H Respiratory Rate 16 25 H 16 Blood Pressure 106/59 L 103/58 L Pulse Oximetry 98 99 09/27/18 15:00 09/27/18 15:30 09/27/18 15:59 Temperature Pulse Rate 107 H 113 H Respiratory Rate 16 16 16 Blood Pressure 109/57 L 99/54 L Pulse Oximetry 98 97 98 09/27/18 16:00 Temperature 99.2 F Pulse Rate 109 H Respiratory Rate 16 Blood Pressure 104/58 L Pulse Oximetry 98 Intake & Output 09/26/18 09/27/18 09/27/18 18:59 06:59 18:59 Intake Total 846 / 846 1367 / 1367 100 / 100 Output Total 550 / 550 650 / 650 Balance 296 / 296 717 / 717 100 / 100 Weight 56.7 kg Intake: IV 75 / 75 350 / 350 100 / 100 Diprivan 1000 mg/100 ml Inj 1, 75 / 75 100 / 100 100 / 100 000 mg In 100 ml @ 5 MCG/KG/MIN 2.041 mls/hr IV.CONT TITRATE PRN Rx#:[id number] Vancomycin Inj 1,000 MG In NS 250 / 250 Inj 250 ML @ 250 mls/hr IV.SIG Q24H [facility] Rx#:[id number] Tube Feeding 771 / 771 617 / 617 Water Bolus Amount 400 / 400 Output: Urine 550 / 550 650 / 650 Other: # Incontinent Voids 2 1 Date of Last Bowel Movement 09/26/18 09/27/18 09/27/18 Physical Exam: CONSTITUTIONAL/GENERAL: This is an adequately nourished patient, in no apparent distress. TUBES/LINES/DRAINS: ETT, PEG tube, PIV, Barnard, rectal tube, podus boot right SKIN: No jaundice, rashes, or lesions. Ecchymoses on upper extremities. Sacral wound, not visualized by me today. Skin temperature appropriate. Not diaphoretic. EYES: eyes closed. ENT: Throat difficult to visualize due to tubes. CARDIOVASCULAR: tachycardic. RESPIRATORY/CHEST: unlabored respirations on vent. diminished breath sounds bilaterally. GASTROINTESTINAL: Abdomen soft, nondistended. Bowel sounds present. GENITOURINARY: Without palpable bladder distension. Barnard catheter in place. MUSCULOSKELETAL: Left AKA, well-healed. No mottling or clubbing. NEUROLOGICAL: Does not awaken to voice, does not follow commands or nod yes/no to voice. PSYCHIATRIC: sedated. Diagnostic Tests Laboratory: Laboratory Results - last 72 hr 09/24/18 09/25/18 09/25/18 23:48 05:15 06:07 WBC RBC Hgb Hct MCV MCH MCHC RDW Plt Count MPV Neut % (Auto) Lymph % (Auto) [place] % (Auto) Eos % (Auto) Baso % (Auto) Neut # (Auto) Lymph # (Auto) [place] # (Auto) Eos # (Auto) Baso # (Auto) WBC Differential Differential Comment Sodium 147 H Potassium 3.2 L Chloride 111 H Carbon Dioxide 26.7 Anion Gap 9 BUN 25 H Creatinine 0.86 Estimated GFR 79 L POC Glucose 134 H 135 H Random Glucose 113 H Calcium 8.0 L Total Bilirubin 0.3 AST 33 ALT 64 H Alkaline Phosphatase 90 Total Protein 7.2 Albumin 2.3 L Vancomycin Trough Random Vancomycin 09/25/18 09/25/18 09/25/18 12:26 12:40 17:23 WBC RBC Hgb Hct MCV MCH MCHC RDW Plt Count MPV Neut % (Auto) Lymph % (Auto) [place] % (Auto) Eos % (Auto) Baso % (Auto) Neut # (Auto) Lymph # (Auto) [place] # (Auto) Eos # (Auto) Baso # (Auto) WBC Differential Differential Comment Sodium Potassium Chloride Carbon Dioxide Anion Gap BUN Creatinine Estimated GFR POC Glucose 98 162 H Random Glucose Calcium Total Bilirubin AST ALT Alkaline Phosphatase Total Protein Albumin Vancomycin Trough 22.9 H Random Vancomycin 09/25/18 09/26/18 09/26/18 23:03 05:01 05:01 WBC 11.9 H RBC 4.41 Hgb 10.2 L Hct 33.5 L MCV 76.0 L MCH 23.2 L MCHC 30.5 L RDW 20.2 H Plt Count 306 MPV 10.9 Neut % (Auto) 77.2 H Lymph % (Auto) 12.2 [place] % (Auto) 6.1 Eos % (Auto) 4.3 H Baso % (Auto) 0.2 Neut # (Auto) 9.2 H Lymph # (Auto) 1.5 [place] # (Auto) 0.7 Eos # (Auto) 0.5 H Baso # (Auto) 0.0 WBC Differential . Differential Comment Auto diff final Sodium 146 H Potassium 3.4 L Chloride 110 H Carbon Dioxide 28.0 Anion Gap 8 BUN 22 H Creatinine 0.78 Estimated GFR 89 POC Glucose 128 H Random Glucose 125 H Calcium 8.7 Total Bilirubin 0.3 AST 27 ALT 63 H Alkaline Phosphatase 103 Total Protein 8.0 D Albumin 2.5 L Vancomycin Trough Random Vancomycin 27.5 09/26/18 09/26/18 09/27/18 14:26 23:06 05:08 WBC RBC Hgb Hct MCV MCH MCHC RDW Plt Count MPV Neut % (Auto) Lymph % (Auto) [place] % (Auto) Eos % (Auto) Baso % (Auto) Neut # (Auto) Lymph # (Auto) [place] # (Auto) Eos # (Auto) Baso # (Auto) WBC Differential Differential Comment Sodium Potassium Chloride Carbon Dioxide Anion Gap BUN Creatinine Estimated GFR POC Glucose 164 H 174 H Random Glucose Calcium Total Bilirubin AST ALT Alkaline Phosphatase Total Protein Albumin Vancomycin Trough Random Vancomycin 19.5 09/27/18 09/27/18 09/27/18 05:31 08:05 11:18 WBC 13.6 H RBC 4.16 Hgb 9.5 L Hct 32.3 L MCV 77.6 L MCH 22.8 L MCHC 29.3 L RDW 20.7 H Plt Count 274 MPV 10.2 Neut % (Auto) 75.2 H Lymph % (Auto) 14.1 [place] % (Auto) 6.7 Eos % (Auto) 3.2 Baso % (Auto) 0.8 Neut # (Auto) 10.2 H Lymph # (Auto) 1.9 [place] # (Auto) 0.9 Eos # (Auto) 0.4 Baso # (Auto) 0.1 WBC Differential . Differential Comment Auto diff final Sodium 150 H Potassium 4.5 D Chloride 114 H Carbon Dioxide 28.3 Anion Gap 8 BUN 32 H Creatinine 1.11 H Estimated GFR 59 L POC Glucose 186 H Random Glucose 148 H Calcium 8.7 Total Bilirubin 0.3 AST 25 ALT 52 Alkaline Phosphatase 94 Total Protein 8.0 Albumin 2.5 L Vancomycin Trough Random Vancomycin 09/27/18 17:18 WBC RBC Hgb Hct MCV MCH MCHC RDW Plt Count MPV Neut % (Auto) Lymph % (Auto) [place] % (Auto) Eos % (Auto) Baso % (Auto) Neut # (Auto) Lymph # (Auto) [place] # (Auto) Eos # (Auto) Baso # (Auto) WBC Differential Differential Comment Sodium Potassium Chloride Carbon Dioxide Anion Gap BUN Creatinine Estimated GFR POC Glucose 164 H Random Glucose Calcium Total Bilirubin AST ALT Alkaline Phosphatase Total Protein Albumin Vancomycin Trough Random Vancomycin Result Diagrams: 09/27/18 08:05 09/27/18 05:31 Imaging: Head CT 09/18/18 18:40 CONCLUSION: 1. Stable appearance of the brain. Marked ventriculomegaly and white matter disease. . Chest CTA 09/18/18 19:26 CONCLUSION: 1. There is no evidence for pulmonary embolism. 2. Severe emphysema. 3. There is a large soft tissue mass in the right lower lobe suspicious for malignancy until proven otherwise. Venous Doppler Study 09/21/18 00:00 CONCLUSION: 1. There is occlusive thrombus within the right cephalic and brachial veins. Chest X-Ray 09/27/18 07:40 CONCLUSION: Enlarging right lung base consolidation since 5 days ago. Procedures: * 09/18/18 - intubated Assessment and Plan - Disease Oriented Problem List (1) UTI (urinary tract infection) (2) Respiratory failure (3) Lung mass (4) Emphysema lung (5) Lactic acidemia (6) Dehydration (7) Hypertension (8) Diabetes (9) Hypernatremia - Symptom Scale (1) Pain 0-10 Scale: Unable to quantify (2) Dyspnea 0-10 Scale: Unable to quantify Pertinent Non-Medical Issues: Psychosocial: . Has 2 daughters, Brea (lives [facility]) and Erica ( lives [place]). Spiritual: Unknown. Legal:No known written advanced directives. Patient is not capacitated to make her own healthcare decisions, will not likely regain capacity. . Has 2 adult daughters. According to [place] statutes healthcare proxy decision making falls to her spouse, Nazario Marrufo. Ethical issues impacting care: No known concerns at this time. Important Contacts: * Nazario Marrufo, spouse/HCP: [phone] * Brea Potts, daughter: [phone] or [phone] Prognosis: Overall prognosis is poor in this 68-year-old snf dependent patient with end-stage stroke with residual hemiparesis, dysphagia, inability to communicate on tube feeding, bedbound at baseline. Now with 8 x 5 cm right lower lobe mass suspicious for malignancy. Patient not likely a candidate for surgical or chemotherapy. Overall prognosis poor. Code Status: Full Code Plan: * No known written advanced directives. Patient is not capacitated to make her own healthcare decisions, will not likely regain capacity. . Has 2 adult daughters. According to [place] statutes healthcare proxy decision making falls to her spouse, Nazaroi Marrufo. * FULL CODE -spouse revoked [place] DNR order on admission. * Family desires continued aggressive care including FULL CODE and tracheostomy. * Discussed with Dr. Hollis and nursing staff. Family wants to proceed with trach. * SYMPTOMS: Dyspnea: Secondary to emphysema, resp failure, on mech vent. Pain: due to tubes, resp failure, wound. On Propofol. No new medication recommendations at this time. * Palliative care will continue to follow throughout hospital course to assist with symptom management further clarification of goals of medical treatment as needed. Attestation Attestation: To help prompt me to consider important information that might be impacting today's encounter and assessment, information from prior notes written by myself or my colleagues may have been "brought forward" into today's note. My signature on this note, however, is an attestation that I personally performed the exam, history, and/or decision-making noted today, and, unless otherwise indicated, the interactions with patient, family, and staff as well as the review of records all occurred today. I also attest that the listed assessment and stated plan reflect my best clinical judgment today based on the combination of historical information, prior notes, and today's exam/ interactions. When time spent is documented, it refers only to time spent today by the signer, or if indicated, combined time spent today by collaborating physician/nurse practitioner.
--- NOTE | 2018-09-27 18:48 | P.PNPL ---
Subjective Interval history: 68 YOAA female who was with Hospice svc, now rescended Daughter at BS, she dw her step father and do not want any lung bx Sedated No fever and daughter at Want to proceed with trach Physical Exam Vital signs: Vital Signs 09/26/18 19:00 09/26/18 19:30 09/26/18 20:00 Temperature Pulse Rate 109 H 108 H 108 H Respiratory Rate 0 L 11 L 16 Blood Pressure 118/63 115/58 L 119/60 Pulse Oximetry 100 100 98 09/26/18 20:22 09/26/18 20:30 09/26/18 21:00 Temperature Pulse Rate 108 H 100 H Respiratory Rate 16 12 16 Blood Pressure 113/61 106/58 L Pulse Oximetry 98 96 98 09/26/18 21:30 09/26/18 22:00 09/26/18 22:30 Temperature Pulse Rate 101 H 101 H 101 H Respiratory Rate 16 13 16 Blood Pressure 112/58 L 113/58 L 147/63 H Pulse Oximetry 99 98 97 09/26/18 23:00 09/26/18 23:30 09/26/18 23:46 Temperature Pulse Rate 109 H 108 H Respiratory Rate 0 L 16 17 Blood Pressure 108/57 L 100/58 L Pulse Oximetry 100 99 100 09/27/18 00:00 09/27/18 00:30 09/27/18 01:00 Temperature Pulse Rate 111 H 109 H 108 H Respiratory Rate 16 16 16 Blood Pressure 92/57 L 96/54 L 101/59 L Pulse Oximetry 100 100 100 09/27/18 01:30 09/27/18 02:00 09/27/18 02:30 Temperature Pulse Rate 108 H 110 H 107 H Respiratory Rate 16 19 18 Blood Pressure 106/55 L 100/56 L 132/59 L Pulse Oximetry 100 100 100 09/27/18 03:00 09/27/18 03:30 09/27/18 04:00 Temperature Pulse Rate 108 H 104 H 107 H Respiratory Rate 18 16 16 Blood Pressure 104/56 L 113/58 L 103/57 L Pulse Oximetry 99 100 99 09/27/18 04:30 09/27/18 04:38 09/27/18 05:00 Temperature Pulse Rate 105 H 106 H Respiratory Rate 16 16 16 Blood Pressure 103/57 L 111/57 L Pulse Oximetry 99 99 100 09/27/18 05:30 09/27/18 06:00 09/27/18 06:30 Temperature Pulse Rate 107 H 109 H 109 H Respiratory Rate 16 16 16 Blood Pressure 102/59 L 110/58 L 98/54 L Pulse Oximetry 99 100 99 09/27/18 07:00 09/27/18 07:30 09/27/18 08:00 Temperature Pulse Rate 110 H 109 H 109 H Respiratory Rate 16 16 16 Blood Pressure 103/56 L 94/55 L 100/56 L Pulse Oximetry 99 99 99 09/27/18 08:12 09/27/18 08:23 09/27/18 08:30 Temperature Pulse Rate 102 H 107 H Respiratory Rate 16 16 16 Blood Pressure 98/56 L Pulse Oximetry 100 100 09/27/18 09:00 09/27/18 09:30 09/27/18 10:00 Temperature Pulse Rate 100 H 97 H 108 H Respiratory Rate 16 16 16 Blood Pressure 94/53 L 95/51 L 106/55 L Pulse Oximetry 100 100 98 09/27/18 10:30 09/27/18 11:00 09/27/18 11:06 Temperature 98.1 F Pulse Rate 103 H 101 H 101 H Respiratory Rate 16 16 16 Blood Pressure 101/58 L 102/56 L Pulse Oximetry 99 99 99 09/27/18 11:30 09/27/18 12:00 09/27/18 12:30 Temperature Pulse Rate 103 H 107 H 106 H Respiratory Rate 16 16 16 Blood Pressure 95/50 L 103/59 L 99/58 L Pulse Oximetry 99 98 98 09/27/18 13:00 09/27/18 13:30 09/27/18 14:00 Temperature Pulse Rate 105 H 103 H 113 H Respiratory Rate 16 17 16 Blood Pressure 99/57 L 105/58 L 106/59 L Pulse Oximetry 97 98 98 09/27/18 14:30 09/27/18 14:32 09/27/18 15:00 Temperature Pulse Rate 104 H 108 H 107 H Respiratory Rate 25 H 16 16 Blood Pressure 103/58 L 109/57 L Pulse Oximetry 99 98 09/27/18 15:30 09/27/18 15:59 09/27/18 16:00 Temperature 99.2 F Pulse Rate 113 H 109 H Respiratory Rate 16 16 16 Blood Pressure 99/54 L 104/58 L Pulse Oximetry 97 98 98 09/27/18 18:00 Temperature Pulse Rate 109 H Respiratory Rate Blood Pressure Pulse Oximetry Intake & Output 09/26/18 09/27/18 09/27/18 18:59 06:59 18:59 Intake Total 846 / 846 1367 / 1367 2123 / 2123 Output Total 550 / 550 650 / 650 1300 / 1300 Balance 296 / 296 717 / 717 823 / 823 Weight 56.7 kg Intake: IV 75 / 75 350 / 350 797 / 797 D5W Inj 1,000 ML @ 42 mls/hr IV 423 / 423 .CONT .[id number] ON LICENSE OF [facility] Rx#:[id number] Diprivan 1000 mg/100 ml Inj 1, 75 / 75 100 / 100 124 / 124 000 mg In 100 ml @ 5 MCG/KG/MIN 2.041 mls/hr IV.CONT TITRATE PRN Rx#:[id number] Vancomycin Inj 1,000 MG In NS 250 / 250 250 / 250 Inj 250 ML @ 250 mls/hr IV.SIG Q24H ON LICENSE OF [facility] Rx#:[id number] Tube Feeding 771 / 771 617 / 617 826 / 826 Water Bolus Amount 400 / 400 500 / 500 Output: Urine 550 / 550 650 / 650 1000 / 1000 Stool 300 / 300 Other: # Incontinent Voids 2 1 Date of Last Bowel Movement 09/26/18 09/27/18 09/27/18 GENERAL: Elderly AA femmale on vent SKIN: Warm and dry. HEAD: Normocephalic. EYES: No scleral icterus. No injection or drainage. NECK: Supple, trachea midline. No JVD or lymphadenopathy. CARDIOVASCULAR: Regular rate and rhythm without murmurs, gallops, or rubs. RESPIRATORY: Breath sounds equal bilaterally. No accessory muscle use. GASTROINTESTINAL: Abdomen soft, non-tender, nondistended. MUSCULOSKELETAL: No cyanosis, or edema. Lt BKA BACK: Nontender without obvious deformity. No CVA tenderness. - Urinary Catheter Management Indwelling Temp Sensing Catheter Cath placed during this visit: yes, but has since been removed by the nurse Reason for continuing: Severe pressure ulcer/wound Insertion date: 09/18/18 Insertion time: 18:50 Removal date: 09/23/18 Removal time: 16:00 Assessment and Plan - Plan IMPRESSION: VDRF large Rt lung mass COPD HTN H/O CVA PLAN: Cont vent support Aerosol nebs IV Solumedrol Cont Abx Family wants to proceed with trach.
[2018-09-28] MEDS: Oral Hygiene Kit OROPHARYNG SCH ×4 (00:16→16:00)
[2018-09-28] MEDS: Insulin NovoLIN Regular Correctional Sugar Inj SQ SCH ×4 (00:16→20:24)
[2018-09-28] MEDS: dilTIAZem 60 MG Tablet PO SCH ×4 (02:42→21:04)
[2018-09-28] MEDS: Propofol 1000 mg/100 ml Inj 1,000 MG/100 ML BOTTLE IV.CONT PRN (05:20)
[2018-09-28] MEDS: Dextrose 5% in Water Inj 1,000 ML IV.CONT SCH (06:34)
[2018-09-28 07:00] LABS: Alanine Aminotransferase 38 U/L (10-53); Albumin 2.2 g/dL (3.4-5.0); Anion Gap 7 meq/L (5-15); Aspartate Aminotransferase 23 U/L (15-37); Blood Urea Nitrogen 33 mg/dL (7-18); Calcium 8.3 mg/dL (8.5-10.1); Carbon Dioxide 26.9 meq/L (21.0-32.0); Chloride 109 meq/L (98-107); Glomerular Filtration Rate 68 mL/min (>89); Glucose,Random 160 mg/dL (74-106); Magnesium 2.8 mg/dL (1.5-2.5); Phosphorus 2.9 mg/dL (2.5-4.9); Potassium 4.1 meq/L (3.5-5.1); Sodium 143 meq/L (136-145)
[2018-09-28 07:03] LABS: Alkaline Phosphatase 92 U/L (45-117); Total Protein 7.3 g/dL (6.4-8.2)
[2018-09-28 07:08] LABS: Baso # (Auto) 0.1 th/mm3 (0.0-0.2); Baso % (Auto) 0.5 % (0.0-2.0); Eos # (Auto) 0.5 th/mm3 (0.0-0.4); Eos % (Auto) 4.1 % (0.0-4.0); Hematocrit 30.2 % (35.0-46.0); Hemoglobin 9.1 gm/dL (11.6-15.3); Lymph # (Auto) 1.7 th/mm3 (1.0-4.8); Lymph % (Auto) 13.6 % (9.0-44.0); Mean Corpuscular Hemoglobin 23.2 pg (27.0-34.0); Mean Platelet Volume 10.4 fL (7.0-11.0); Mono # (Auto) 0.9 th/mm3 (0.0-0.9); Mono % (Auto) 7.5 % (0.0-8.0); Neut # (Auto) 9.1 th/mm3 (1.8-7.7); Neut % (Auto) 74.3 % (16.0-70.0); Platelet Count 234 th/mm3 (150-450); Red Blood Count 3.92 mil/mm3 (4.00-5.30); Red Cell Distribution Width 20.2 % (11.6-17.2); White Blood Count 12.2 th/mm3 (4.0-11.0)
[2018-09-28 07:16] LABS: Mean Corpuscular HGB Conc 30.1 % (32.0-36.0)
--- NOTE | 2018-09-28 07:51 | P.PNCC ---
Subjective Subjective Remarks/Hospital Course: 09/18: 68-year-old female past medical history of stroke, left BKA, who was on home hospice until just prior to arrival, presents for an evaluation of fever and altered mental status. According to EMS the patient had not required oxygen until beginning of this week when she had gradual increased demand of her oxygen. End-tidal CO2 prior to arrival was 6. Initial room nasal cannula saturation was 91, she was placed on nonrebreather position of comfort and transfer to emergency department. EMS related that the had elected to revoke the patient's DNR and hospice care prior to transferring her to the hospital. The patient apparently is normally a GCS of 14, apparently she does take some thickened food p.o. department the patient was severely altered with GCS of 6 on arrival [id number] and was intubated by ED attending for an airway protection. 09/19: Remains sedated, orally intubated on mechanical ventilation. CT chest showed right lower lobe lung mass suspicious for malignancy. Patient has a PEG tube following previous stroke. 09/20: Remains sedated, orally intubated on mechanical ventilation. Started on tube feeds. 09/21: Remains sedated, orally intubated on mechanical ventilation. Tolerating tube feeds. Right approximately swelling noted. 09/22 Is not tolerating CPAP trial when decrease PS below 18. Daughter at bedside, says will be here later. Says they don't think they want to proceed with lung biopsy at this time, but on the other hand she discusses the possibility of re-do trach. She says they are not sure how to proceed. I suggested we meet together. Daughter states she has been bedridden since stroke about 4 years ago. Has been in [facility]. PEG due to dysphagia, does not eat. Speaks a little but daughter states she has declined significantly over the last 2 weeks. 09/23 No significant change. Patient does not tolerate CPAP. Family is very clear that they do not wish to pursue biopsy or diagnosis of suspected lung cancer. At this time, they wish to continue supportive care with vent and FULL CODE. 09/24 No change. Does not tolerate CPAP. Will diurese for positive fluid balance. Subjective: 09/25 Now on CPAP 20/5 and not tolerating wean. Continue attempts at diuresis to address positive fluid balance since admission 09/26: Remains sedated, orally intubated on mechanical ventilation. Hold CPAP trials yesterday 09/27 Patient is sedated with Diprivan and intubated. Tolerating tube feeds. Afebrile. 09/28 Patient remains intubated and sedated. T;100.8 Objective Vital Signs / I&O: Vital Signs 09/27/18 08:00 09/27/18 08:12 09/27/18 08:23 Temperature Pulse Rate 109 H 102 H Respiratory Rate 16 16 16 Blood Pressure 100/56 L Pulse Oximetry 99 100 09/27/18 08:30 09/27/18 09:00 09/27/18 09:30 Temperature Pulse Rate 107 H 100 H 97 H Respiratory Rate 16 16 16 Blood Pressure 98/56 L 94/53 L 95/51 L Pulse Oximetry 100 100 100 09/27/18 10:00 09/27/18 10:30 09/27/18 11:00 Temperature 98.1 F Pulse Rate 108 H 103 H 101 H Respiratory Rate 16 16 16 Blood Pressure 106/55 L 101/58 L 102/56 L Pulse Oximetry 98 99 99 09/27/18 11:06 09/27/18 11:30 09/27/18 12:00 Temperature Pulse Rate 101 H 103 H 107 H Respiratory Rate 16 16 16 Blood Pressure 95/50 L 103/59 L Pulse Oximetry 99 99 98 09/27/18 12:30 09/27/18 13:00 09/27/18 13:30 Temperature Pulse Rate 106 H 105 H 103 H Respiratory Rate 16 16 17 Blood Pressure 99/58 L 99/57 L 105/58 L Pulse Oximetry 98 97 98 09/27/18 14:00 09/27/18 14:30 09/27/18 14:32 Temperature Pulse Rate 113 H 104 H 108 H Respiratory Rate 16 25 H 16 Blood Pressure 106/59 L 103/58 L Pulse Oximetry 98 99 09/27/18 15:00 09/27/18 15:30 09/27/18 15:59 Temperature Pulse Rate 107 H 113 H Respiratory Rate 16 16 16 Blood Pressure 109/57 L 99/54 L Pulse Oximetry 98 97 98 09/27/18 16:00 09/27/18 18:00 09/27/18 19:40 Temperature 99.2 F Pulse Rate 109 H 109 H Respiratory Rate 16 17 Blood Pressure 104/58 L Pulse Oximetry 98 99 09/27/18 19:42 09/27/18 20:00 09/27/18 22:00 Temperature 99.2 F Pulse Rate 109 H 113 H 92 H Respiratory Rate 16 16 Blood Pressure 105/59 L Pulse Oximetry 100 09/27/18 23:39 09/28/18 00:00 09/28/18 00:10 Temperature 100.8 F H Pulse Rate 97 H 100 H Respiratory Rate 16 16 16 Blood Pressure 108/54 L Pulse Oximetry 100 100 09/28/18 02:00 09/28/18 03:22 09/28/18 04:00 Temperature 98.9 F Pulse Rate 104 H 101 H 99 H Respiratory Rate 17 16 Blood Pressure 102/53 L Pulse Oximetry 98 09/28/18 04:13 09/28/18 06:00 Temperature Pulse Rate 99 H Respiratory Rate 16 Blood Pressure Pulse Oximetry 99 Intake & Output 09/27/18 09/28/18 09/28/18 18:59 06:59 18:59 Intake Total 2123 / 2123 1868 / 1868 Output Total 1300 / 1300 450 / 450 Balance 823 / 823 1418 / 1418 Weight 57.3 kg Intake: IV 797 / 797 634 / 634 D5W Inj 1,000 ML @ 42 mls/hr IV 423 / 423 577 / 577 .CONT .[id number] [facility] Rx#:[id number] Diprivan 1000 mg/100 ml Inj 1, 124 / 124 57 / 57 000 mg In 100 ml @ 5 MCG/KG/MIN 2.041 mls/hr IV.CONT TITRATE PRN Rx#:[id number] Vancomycin Inj 1,000 MG In NS 250 / 250 Inj 250 ML @ 250 mls/hr IV.SIG Q24H [facility] Rx#:[id number] Tube Feeding 826 / 826 734 / 734 Water Bolus Amount 500 / 500 500 / 500 Output: Urine 1000 / 1000 250 / 250 Stool 300 / 300 200 / 200 Other: # Incontinent Voids 1 Date of Last Bowel Movement 09/27/18 09/28/18 Result Diagrams: 09/28/18 05:07 09/28/18 05:07 Other Results: Laboratory Results - last 12 hr 09/27/18 09/28/18 09/28/18 23:29 05:07 05:07 WBC 12.2 H RBC 3.92 L Hgb 9.1 L Hct 30.2 L MCV 77.0 L MCH 23.2 L MCHC 30.1 L RDW 20.2 H Plt Count 234 MPV 10.4 Neut % (Auto) 74.3 H Lymph % (Auto) 13.6 [place] % (Auto) 7.5 Eos % (Auto) 4.1 H Baso % (Auto) 0.5 Neut # (Auto) 9.1 H Lymph # (Auto) 1.7 [place] # (Auto) 0.9 Eos # (Auto) 0.5 H Baso # (Auto) 0.1 WBC Differential . Differential Comment Auto diff final Sodium 143 Potassium 4.1 Chloride 109 H Carbon Dioxide 26.9 Anion Gap 7 BUN 33 H Creatinine 0.98 Estimated GFR 68 L POC Glucose 167 H Random Glucose 160 H Calcium 8.3 L Phosphorus 2.9 Magnesium 2.8 H Total Bilirubin 0.3 AST 23 ALT 38 Alkaline Phosphatase 92 Total Protein 7.3 D Albumin 2.2 L 09/28/18 05:31 WBC RBC Hgb Hct MCV MCH MCHC RDW Plt Count MPV Neut % (Auto) Lymph % (Auto) [place] % (Auto) Eos % (Auto) Baso % (Auto) Neut # (Auto) Lymph # (Auto) [place] # (Auto) Eos # (Auto) Baso # (Auto) WBC Differential Differential Comment Sodium Potassium Chloride Carbon Dioxide Anion Gap BUN Creatinine Estimated GFR POC Glucose 210 H Random Glucose Calcium Phosphorus Magnesium Total Bilirubin AST ALT Alkaline Phosphatase Total Protein Albumin Imaging: Head CT 09/18/18 18:40 CONCLUSION: 1. Stable appearance of the brain. Marked ventriculomegaly and white matter disease. . Chest CTA 09/18/18 19:26 CONCLUSION: 1. There is no evidence for pulmonary embolism. 2. Severe emphysema. 3. There is a large soft tissue mass in the right lower lobe suspicious for malignancy until proven otherwise. Venous Doppler Study 09/21/18 00:00 CONCLUSION: 1. There is occlusive thrombus within the right cephalic and brachial veins. Chest X-Ray 09/27/18 07:40 CONCLUSION: Enlarging right lung base consolidation since 5 days ago. Objective Remarks: GENERAL: Well-nourished, well-developed patient who is orotracheally intubated. SKIN: Warm and dry. HEAD: Atraumatic. Normocephalic. EYES: Pupils equal and round. No scleral icterus. No injection or drainage. ENT: No nasal bleeding or discharge. Mucous membranes pink and moist. NECK: Trachea midline. No JVD. CARDIOVASCULAR: Regular rate and rhythm. No murmurs rubs or gallops. RESPIRATORY: Orotracheally intubated on mechanical ventilation. B/L equal air entry GASTROINTESTINAL: Abdomen soft, non-tender, nondistended. PEG in place, tube feeds running. MUSCULOSKELETAL: Extremities without clubbing, cyanosis, or edema. s/p L AKA. NEUROLOGICAL: Awakens, looks around. Blinks and squeezes hand to command Assessment and Plan - Assessment and Plan Plan: NEURO: History of stroke On Fentanyl infusion for sedation. Daily sedation vacation. Monitor neuro status RESP: Acute respiratory failure on mechanical ventilation Emphysema Lung mass History of prior trach after stroke, has been subsequently decannulated Per Dr. De Jesus. not wishing to pursue CT-guided biopsy. Continue with vent support keep sats >92% Daily CPAP trials. Vent bundle/nebs. Family agreed for trach will consult surgery for trach CV: HTN Monitor BP//heart rate keep MAP>65mmHg. Continue metoprolol 100 bid, Cardizem 60mg q6. GI: PEG in place. Glucerna 1.5 @60ml/hr Keep NPO after midnight. FEN/RENAL: Acute hypernatremia Hypokalemia resolved Monitor renal function, I/O's, electrolytes replacement per protocol. Free water 250ml Q12 , ID: HCAP UTI Urine culture from 09/18 with providentia and Proteus. Urine and sputum cultures negative Completed 8 day course of zosyn. Monitor for signs of infections ( Fever, WBC) check sputum cx, UA with cx if indicated. HEME: R brachial DVT Lovenox 60 mg subcu every 12 hours. ENDO: Diabetes mellitus Insulin sliding scale PROPH: SCD/Lovenox for DVT prophylaxis. Hold Lovenox for trach Famotidine for stress ulcer prophylaxis. ACCESS: PIV x2. Palliative care is following Full code Level 3
[2018-09-28] MEDS: Chlorhexidine 0.12% Oral Kit 15 ML UDC OROPHARYNG SCH ×2 (10:09→21:03)
[2018-09-28] MEDS: Enoxaparin Inj 60 MG/0.6 ML Syringe SQ SCH (10:10)
[2018-09-28] MEDS: Senna/Docusate Sodium 8.6/50 MG Tablet PO SCH ×2 (10:10→21:03)
[2018-09-28] MEDS: Famotidine PF Inj 20 MG/2 ML Vial IV.PUSH SCH ×2 (10:10→21:03)
[2018-09-28] MEDS: Metoprolol Tartrate 100 MG Tablet G-TUBE SCH ×2 (10:10→21:05)
--- NOTE | 2018-09-28 14:07 | P.CONGS ---
HPI Gen Surgery Consult Note Consult date: 09/28/18 Reason for consult: other (tracheostomy placement) Requesting physician: Ama Macias Narrative: This is a 68 year old female with a past medical history significant for stroke , LEFT BKA, hemiplegia, hypertension and diabetes mellitus. Prior to admission she was enrolled in Hospice. She developed respiratory distress and brought to the ED and Hospice was revoked by the family. She was placed on mechanical ventilation. She has been unable to wean off the ventilator. She was also found to have a large chest mass which the family, per the records, do not wish to have biopsied for tissue diagnosis. A General Surgery consultation has been requested for tracheostomy tube placement. Review of Systems unobtainable due to endotracheal tube PMFSH - History History Provided By: Medical Record - Medical History Medical History: Medical History (Last Reviewed 09/28/18 @ 14:03 by REBECA Bustos) Acute respiratory failure CVA (cerebral vascular accident) Diabetes Dysphagia HTN (hypertension) Hemiparesis Hemiplegia Hypoxia - Surgical History Surgical History: Surgical History (Last Updated 09/30/18 @ 11:34 by REBECA Bustos) H/O tracheostomy History of left above knee amputation S/P percutaneous endoscopic gastrostomy (PEG) tube placement - Family History Family History: Family History (Last Updated 09/20/18 @ 16:04 by Jenny Russell) Sister Diabetes Sister Hypertension - Tobacco History Second Hand Smoke Exposure: No Tobacco Use In Past 30 Days: No Smoking Status: Former smoker (Quit many years ago, daughter reports pt smoked when daughter was a child.) - Alcohol History How Often Do You Have a Drink Containing Alcohol: Never - Substance Use History Substance History: No History of Abuse, Unable to Obtain - Travel History Recent Travel in the [place] Within the Last 8 Weeks: No Recent Travel Out of the Country Within the Last 8 Weeks: No - Immunization History Tetanus Immunization: Unsure Medications and Allergies Allergies Allergy/AdvReac Type Severity Reaction Status Date / Time *MDRO Multi-Drug Resistant AdvReac Unknown UNKNOWN Uncoded 09/18/18 18:40 Organism Home Medications Medication Instructions Recorded Confirmed Type Lactobacillus acidophilus 100 mg PO DAILY 09/18/18 09/18/18 History [Acidophilus] acetaminophen [Tylenol] 650 mg FEEDING TUBE Q6H PRN 09/18/18 09/18/18 History ascorbic acid (vitamin C) [Vitamin 500 mg FEEDING TUBE DAILY 09/18/18 09/18/18 History C] aspirin 81 mg FEEDING TUBE DAILY 09/18/18 09/18/18 History clonidine HCl 0.1 mg FEEDING TUBE DAILY PRN 09/18/18 09/18/18 History dextrose [Glucose Gel] 15 g PO DIRECTED PRN 09/18/18 09/18/18 History diltiazem HCl 60 mg FEEDING TUBE QID 09/18/18 09/18/18 History glucagon (human recombinant) 1 mg IM DIRECTED PRN 09/18/18 09/18/18 History [Glucagon Emergency Kit (human)] guaifenesin [Tussin] 200 mg FEEDING TUBE Q4H PRN 09/18/18 09/18/18 History hydrocodone-acetaminophen [[place]] 1 tab FEEDING TUBE Q6H PRN 09/18/18 09/18/18 History insulin detemir U-100 [Levemir 5 unit SUBCUT BID 09/18/18 09/18/18 History U-100 Insulin] ipratropium-albuterol 3 ml INHALATION Q4H PRN 09/18/18 09/18/18 History loperamide 2 mg FEEDING TUBE Q6H PRN 09/18/18 09/18/18 History metoprolol tartrate 100 mg FEEDING TUBE Q12HR 09/18/18 09/18/18 History multivitamin 1 tab FEEDING TUBE DAILY 09/18/18 09/18/18 History Active Medications: Active Medications Acetaminophen (Tylenol) 650 mg PO Q6H PRN PRN Reason: PAIN 1-10 AND/OR FEVER >101F Al Hydroxide/Mg Hydroxide (Milk Of Magnesia Liq) 30 ml PO Q12H PRN PRN Reason: Mild Constipation Albuterol (Duoneb Neb (Prn)) 1 ampul NEB Q2HR NEB PRN PRN Reason: WHEEZING Last Admin: 09/25/18 20:40 Dose: 1 ampul Albuterol (Duoneb Neb (Eufemia)) 1 ampul NEB Q4HR NEB EUFEMIA Last Admin: 09/28/18 10:45 Dose: 1 ampul Bisacodyl (Dulcolax Supp) 10 mg RECTAL DAILY PRN PRN Reason: SEVERE CONSITIPATION Chlorhexidine Gluconate (Peridex 0.12% Oral Kit) 15 ml OROPHARYNG BID@0800, 2000 [facility] Last Admin: 09/28/18 10:09 Dose: 15 ml Clonidine HCl (Catapres) 0.1 mg PO Q6H PRN PRN Reason: SBP > 160 Last Admin: 09/22/18 06:02 Dose: 0.1 mg Dextrose (D50w Vial) 50 ml IV.PUSH UNSCH PRN PRN Reason: PER HYPOGLYCEMIA PROTOCOL Diltiazem HCl (Cardizem) 60 mg PO Q6H [facility] Last Admin: 09/28/18 10:09 Dose: 60 mg Enoxaparin Sodium (Lovenox Inj) 60 mg SQ Q12HR [facility] Last Admin: 09/28/18 10:10 Dose: 60 mg Famotidine (Pepcid Pf Inj) 20 mg IV.PUSH Q12HR [facility] Last Admin: 09/28/18 10:10 Dose: 20 mg Glucagon (Glucagon Inj) 1 mg OTHER PRN PRN PRN Reason: for Hypoglycemia Protocol Propofol (Diprivan 1000 Mg/100 Ml Inj) 1,000 mg in 100 mls @ 2.041 mls/hr IV.CONT TITRATE PRN; Protocol PRN Reason: Per Protocol Last Admin: 09/28/18 05:20 Dose: 15 mcg/kg/min, 6.12 mls/hr Magnesium Sulfate 4 gm/ Sodium (Chloride) 100 mls @ 50 mls/hr IV.SIG UNSCH PRN PRN Reason: For Magnesium 0.9 - 1.1 mg/dL Magnesium Sulfate 2 gm/ Sodium (Chloride) 100 mls @ 50 mls/hr IV.SIG UNSCH PRN PRN Reason: For Magnesium 1.2 - 1.6 mg/dL Potassium Chloride (Kcl 40 Meq Premix Inj) 40 meq in 100 mls @ 25 mls/hr IV.SIG Q2H PRN PRN Reason: For Potassium 2.8 - 3.2 mEq/L Potassium Chloride (Kcl 20 Meq Premix Inj) 20 meq in 100 mls @ 50 mls/hr IV.SIG Q2H PRN PRN Reason: For Potassium 3.3 - 3.5 mEq/L Last Infusion: 09/19/18 12:20 Dose: Infused Potassium Chloride (Kcl 40 Meq Premix Inj) 40 meq in 100 mls @ 25 mls/hr IV.SIG UNSCH PRN PRN Reason: For Potassium 3.3 - 3.5 mEq/L Potassium Phosphate 30 mmol/ (Sodium Chloride) 260 mls @ 42 mls/hr IV.SIG UNSCH PRN PRN Reason: SEE LABEL COMMENTS Sodium Phosphate 30 mmol/ (Sodium Chloride) 260 mls @ 42 mls/hr IV.SIG UNSCH PRN PRN Reason: For Phosphorus < 2.5 mg/dL Potassium Chloride (Kcl 20 Meq Premix Inj) 20 meq in 100 mls @ 50 mls/hr IV.SIG Q2H PRN PRN Reason: For Potassium 2.8 - 3.2 mEq/L Last Infusion: 09/21/18 13:07 Dose: Infused Insulin Human Regular (Novolin R Correctional Sugar Inj) 0 units SQ Q6HR [facility]; Protocol Last Admin: 09/28/18 06:33 Dose: 4 units Labetalol HCl (Trandate Inj) 10 mg IV.PUSH Q4H PRN PRN Reason: SBP>160, DBP>90 Lactulose (Lactulose Liq) 30 ml PO DAILY PRN PRN Reason: SEVERE CONSITIPATION Magnesium Oxide (Mag-Ox) 800 mg PO UNSCH PRN PRN Reason: For Magnesium 1.2 - 1.6 mg/dL Metoprolol Tartrate (Lopressor) 100 mg G-TUBE BID [facility] Last Admin: 09/28/18 10:10 Dose: Not Given Midazolam HCl (Versed Inj) 2 mg IV.PUSH Q1H PRN PRN Reason: SEDATION Last Admin: 09/20/18 14:41 Dose: 2 mg Miscellaneous Information ([facility] Ordered Lab Info) 0 each OTHER ONCE ONE Stop: 09/28/18 17:46 Miscellaneous Medication () 1 each OROPHARYNG 0000,0400,1200,1600 [facility] Last Admin: 09/28/18 03:17 Dose: 1 each Morphine Sulfate (Morphine Inj) 2 mg IV.PUSH Q2H PRN PRN Reason: PAIN SCALE 6 TO 10 Ondansetron HCl (Zofran Inj) 4 mg IV.PUSH Q6H PRN PRN Reason: NAUSEA OR VOMITING Potassium Chloride (Kcl Liq) 40 meq PO UNSCH PRN PRN Reason: Potassium level 3.3-3.5 mEq/L Last Admin: 09/26/18 09:48 Dose: 40 meq Potassium Chloride (Kcl Liq) 40 meq PO UNSCH PRN PRN Reason: Potassium level 3.3-3.5 mEq/L Potassium Phosphate (K-Phos Original) 2,000 mg PO Q4H PRN PRN Reason: Phosphorus Less Than 2.5 mg/dL Potassium Phosphate (K-Phos Original) 2,000 mg PO UNSCH PRN PRN Reason: SEE LABEL COMMENTS Last Admin: 09/20/18 16:03 Dose: 2,000 mg Senna/Docusate Sodium (Rosana-Colace) 1 tab PO BID [facility] Last Admin: 09/28/18 10:10 Dose: 1 tab Sennosides (Senokot) 17.2 mg PO Q12H PRN PRN Reason: Moderate Constipation Sodium Chloride (Ns Flush) 2 ml IV.FLUSH BID [facility] Last Admin: 09/28/18 10:10 Dose: 2 ml Sodium Chloride (Ns Flush) 2 ml IV.FLUSH PRN PRN PRN Reason: FLUSH AFTER USING IV ACCESS Sterile Water (Free Water) 250 ml G-TUBE Q12H [facility] Last Admin: 09/28/18 10:08 Dose: 250 ml Exam Vital signs: Vital Signs 09/27/18 14:30 09/27/18 14:32 09/27/18 15:00 Temperature Pulse Rate 104 H 108 H 107 H Respiratory Rate 25 H 16 16 Blood Pressure 103/58 L 109/57 L Pulse Oximetry 99 98 09/27/18 15:30 09/27/18 15:59 09/27/18 16:00 Temperature 99.2 F Pulse Rate 113 H 109 H Respiratory Rate 16 16 16 Blood Pressure 99/54 L 104/58 L Pulse Oximetry 97 98 98 09/27/18 18:00 09/27/18 19:40 09/27/18 19:42 Temperature Pulse Rate 109 H 109 H Respiratory Rate 17 16 Blood Pressure Pulse Oximetry 99 09/27/18 20:00 09/27/18 22:00 09/27/18 23:39 Temperature 99.2 F Pulse Rate 113 H 92 H 97 H Respiratory Rate 16 16 Blood Pressure 105/59 L Pulse Oximetry 100 09/28/18 00:00 09/28/18 00:10 09/28/18 02:00 Temperature 100.8 F H Pulse Rate 100 H 104 H Respiratory Rate 16 16 Blood Pressure 108/54 L Pulse Oximetry 100 100 09/28/18 03:22 09/28/18 04:00 09/28/18 04:13 Temperature 98.9 F Pulse Rate 101 H 99 H Respiratory Rate 17 16 16 Blood Pressure 102/53 L Pulse Oximetry 98 99 09/28/18 06:00 09/28/18 07:50 09/28/18 08:00 Temperature Pulse Rate 99 H 108 H 108 H Respiratory Rate 16 Blood Pressure Pulse Oximetry 99 96 09/28/18 10:45 Temperature Pulse Rate 100 H Respiratory Rate 16 Blood Pressure Pulse Oximetry 100 Intake & Output 09/27/18 09/28/18 09/28/18 18:59 06:59 18:59 Intake Total 2123 / 2123 1868 / 1868 250 / 250 Output Total 1300 / 1300 450 / 450 Balance 823 / 823 1418 / 1418 250 / 250 Weight 57.3 kg Intake: IV 797 / 797 634 / 634 D5W Inj 1,000 ML @ 42 mls/hr IV 423 / 423 577 / 577 .CONT .[id number] [facility] Rx#:[id number] Diprivan 1000 mg/100 ml Inj 1, 124 / 124 57 / 57 000 mg In 100 ml @ 5 MCG/KG/MIN 2.041 mls/hr IV.CONT TITRATE PRN Rx#:[id number] Vancomycin Inj 1,000 MG In NS 250 / 250 Inj 250 ML @ 250 mls/hr IV.SIG Q24H [facility] Rx#:[id number] Tube Feeding 826 / 826 734 / 734 Water Bolus Amount 500 / 500 500 / 500 Free Water Amount 250 / 250 Output: Urine 1000 / 1000 250 / 250 Stool 300 / 300 200 / 200 Other: # Incontinent Voids 1 Date of Last Bowel Movement 09/27/18 09/28/18 09/28/18 Narrative: GENERAL: 68 year old female who looks older than stated age resting in bed on mechanical ventilation. SKIN: Warm and dry. HEAD: Atraumatic. Normocephalic. EYES: Pupils equal and round. No scleral icterus. No injection or drainage. ENT: No nasal bleeding or discharge. Mucous membranes pink and moist. NECK: Trachea midline. Trachea palpable. CARDIOVASCULAR: Regular rate and rhythm. RESPIRATORY: No accessory muscle use. Clear to auscultation. Breath sounds equal bilaterally. GASTROINTESTINAL: Abdomen soft, non-tender. Mildly distended. G tube in place. MUSCULOSKELETAL: Prior LEFT BKA. NEUROLOGICAL: Unable to examine. PSYCHIATRIC: Unable to examine. Results - Labs 10/05/18 05:17 10/05/18 11:49 Laboratory Results - last 24 hr 09/27/18 09/27/18 09/28/18 17:18 23:29 05:07 WBC 12.2 H RBC 3.92 L Hgb 9.1 L Hct 30.2 L MCV 77.0 L MCH 23.2 L MCHC 30.1 L RDW 20.2 H Plt Count 234 MPV 10.4 Neut % (Auto) 74.3 H Lymph % (Auto) 13.6 [place] % (Auto) 7.5 Eos % (Auto) 4.1 H Baso % (Auto) 0.5 Neut # (Auto) 9.1 H Lymph # (Auto) 1.7 [place] # (Auto) 0.9 Eos # (Auto) 0.5 H Baso # (Auto) 0.1 WBC Differential . Differential Comment Auto diff final Sodium Potassium Chloride Carbon Dioxide Anion Gap BUN Creatinine Estimated GFR POC Glucose 164 H 167 H Random Glucose Calcium Phosphorus Magnesium Total Bilirubin AST ALT Alkaline Phosphatase Total Protein Albumin 09/28/18 09/28/18 05:07 05:31 WBC RBC Hgb Hct MCV MCH MCHC RDW Plt Count MPV Neut % (Auto) Lymph % (Auto) [place] % (Auto) Eos % (Auto) Baso % (Auto) Neut # (Auto) Lymph # (Auto) [place] # (Auto) Eos # (Auto) Baso # (Auto) WBC Differential Differential Comment Sodium 143 Potassium 4.1 Chloride 109 H Carbon Dioxide 26.9 Anion Gap 7 BUN 33 H Creatinine 0.98 Estimated GFR 68 L POC Glucose 210 H Random Glucose 160 H Calcium 8.3 L Phosphorus 2.9 Magnesium 2.8 H Total Bilirubin 0.3 AST 23 ALT 38 Alkaline Phosphatase 92 Total Protein 7.3 D Albumin 2.2 L - Imaging Imaging: ITS Impressions Head CT 09/18/18 18:40 CONCLUSION: 1. Stable appearance of the brain. Marked ventriculomegaly and white matter disease. . Chest CTA 09/18/18 19:26 CONCLUSION: 1. There is no evidence for pulmonary embolism. 2. Severe emphysema. 3. There is a large soft tissue mass in the right lower lobe suspicious for malignancy until proven otherwise. Venous Doppler Study 09/21/18 00:00 CONCLUSION: 1. There is occlusive thrombus within the right cephalic and brachial veins. Chest X-Ray 09/27/18 07:40 CONCLUSION: Enlarging right lung base consolidation since 5 days ago. Assessment and Plan - Plan 68 year old female with prior stoke, hemiplegia; now with VDRF -I discussed with the ---explained procedure and answered all questions -Plan for bedside trach tomorrow -Obtain consents and supplies -NPO after MN -Hold Lovenox -Thank you for this consult; We will continue to follow Discussed Condition With: Dr. Mona Ovalles RN - Attending Attestation The exam, history, and the medical decision-making described in the above note were completed with the assistance of the mid-level provider. I reviewed and agree with the findings presented. I attest that I had a [id number] encounter with the patient on the same day, and personally performed and documented my assessment and findings in the medical record. Patient with ventilator dependent respiratory failure Family request aggressive continued care and tracheostomy placement Patient examined and is appropriate for bedside tracheostomy Will plan bedside tracheostomy, will coordinate with press helper Thank you for consultation
[2018-09-28] MEDS ORDERED: Pharmacy Ordered Lab Info OTHER ONE (17:45)
--- NOTE | 2018-09-28 18:29 | P.PNPL ---
Subjective Interval history: 68 YOAA female who was with Hospice svc, now rescended Daughter at , she dw her step father and do not want any lung bx Sedated No fever Put on CPAP Low grade fever Surgery consulted for Trach Physical Exam Vital signs: Vital Signs 09/27/18 19:40 09/27/18 19:42 09/27/18 20:00 Temperature 99.2 F Pulse Rate 109 H 113 H Respiratory Rate 17 16 16 Blood Pressure 105/59 L Pulse Oximetry 99 100 09/27/18 22:00 09/27/18 23:39 09/28/18 00:00 Temperature 100.8 F H Pulse Rate 92 H 97 H 100 H Respiratory Rate 16 16 Blood Pressure 108/54 L Pulse Oximetry 100 09/28/18 00:10 09/28/18 02:00 09/28/18 03:22 Temperature Pulse Rate 104 H 101 H Respiratory Rate 16 17 Blood Pressure Pulse Oximetry 100 09/28/18 04:00 09/28/18 04:13 09/28/18 06:00 Temperature 98.9 F Pulse Rate 99 H 99 H Respiratory Rate 16 16 Blood Pressure 102/53 L Pulse Oximetry 98 99 09/28/18 07:50 09/28/18 08:00 09/28/18 10:45 Temperature Pulse Rate 108 H 108 H 100 H Respiratory Rate 16 16 Blood Pressure Pulse Oximetry 99 96 100 09/28/18 14:51 Temperature Pulse Rate 116 H Respiratory Rate 32 H Blood Pressure Pulse Oximetry 99 Intake & Output 09/27/18 09/28/18 09/28/18 18:59 06:59 18:59 Intake Total 2123 / 2123 1868 / 1868 250 / 250 Output Total 1300 / 1300 450 / 450 Balance 823 / 823 1418 / 1418 250 / 250 Weight 57.3 kg Intake: IV 797 / 797 634 / 634 D5W Inj 1,000 ML @ 42 mls/hr IV 423 / 423 577 / 577 .CONT .[id number] JORGE Rx#:[id number] Diprivan 1000 mg/100 ml Inj 1, 124 / 124 57 / 57 000 mg In 100 ml @ 5 MCG/KG/MIN 2.041 mls/hr IV.CONT TITRATE PRN Rx#:[id number] Vancomycin Inj 1,000 MG In NS 250 / 250 Inj 250 ML @ 250 mls/hr IV.SIG Q24H JORGE Rx#:[id number] Tube Feeding 826 / 826 734 / 734 Water Bolus Amount 500 / 500 500 / 500 Free Water Amount 250 / 250 Output: Urine 1000 / 1000 250 / 250 Stool 300 / 300 200 / 200 Other: # Incontinent Voids 1 Date of Last Bowel Movement 09/27/18 09/28/18 09/28/18 GENERAL: Elderly AA female on vent SKIN: Warm and dry. HEAD: Normocephalic. EYES: No scleral icterus. No injection or drainage. NECK: Supple, trachea midline. No JVD or lymphadenopathy. CARDIOVASCULAR: Regular rate and rhythm without murmurs, gallops, or rubs. RESPIRATORY: Breath sounds equal bilaterally. No accessory muscle use. GASTROINTESTINAL: Abdomen soft, non-tender, nondistended. MUSCULOSKELETAL: No cyanosis, or edema. BKA BACK: Nontender without obvious deformity. No CVA tenderness. - Urinary Catheter Management Indwelling Temp Sensing Catheter Cath placed during this visit: yes, but has since been removed by the nurse Reason for continuing: Severe pressure ulcer/wound Insertion date: 09/18/18 Insertion time: 18:50 Removal date: 09/23/18 Removal time: 16:00 Assessment and Plan - Plan IMPRESSION: VDRF large Rt lung mass COPD HTN H/O CVA PLAN: Cont vent support CPAP trial Aerosol nebs IV Solumedrol Cont Abx Family wants to proceed with trach. Surgery consulted.
[2018-09-29] MEDS: Oral Hygiene Kit OROPHARYNG SCH ×3 (00:56→15:26)
[2018-09-29] MEDS: Insulin NovoLIN Regular Correctional Sugar Inj SQ SCH ×4 (00:56→18:46)
[2018-09-29] MEDS: dilTIAZem 60 MG Tablet PO SCH ×4 (03:49→20:45)
[2018-09-29 05:25] LABS: Baso # (Auto) 0.1 th/mm3 (0.0-0.2); Baso % (Auto) 0.8 % (0.0-2.0); Eos # (Auto) 0.5 th/mm3 (0.0-0.4); Eos % (Auto) 3.5 % (0.0-4.0); Hematocrit 26.7 % (35.0-46.0); Lymph # (Auto) 1.5 th/mm3 (1.0-4.8); Lymph % (Auto) 9.3 % (9.0-44.0); Mean Corpuscular Hemoglobin 23.4 pg (27.0-34.0); Mean Corpuscular Volume 77.6 fL (80.0-100.0); Mean Platelet Volume 10.5 fL (7.0-11.0); Mono % (Auto) 6.6 % (0.0-8.0); Neut # (Auto) 12.4 th/mm3 (1.8-7.7); Neut % (Auto) 79.8 % (16.0-70.0); Platelet Count 251 th/mm3 (150-450); Red Blood Count 3.43 mil/mm3 (4.00-5.30); Red Cell Distribution Width 20.3 % (11.6-17.2); White Blood Count 15.5 th/mm3 (4.0-11.0)
[2018-09-29 05:29] LABS: Mean Corpuscular HGB Conc 30.1 % (32.0-36.0)
[2018-09-29 05:30] LABS: Albumin 2.2 g/dL (3.4-5.0); Anion Gap 9 meq/L (5-15); Aspartate Aminotransferase 19 U/L (15-37); Blood Urea Nitrogen 26 mg/dL (7-18); Calcium 8.6 mg/dL (8.5-10.1); Carbon Dioxide 28.4 meq/L (21.0-32.0); Chloride 108 meq/L (98-107); Glomerular Filtration Rate 75 mL/min (>89); Glucose,Random 120 mg/dL (74-106); Sodium 145 meq/L (136-145)
[2018-09-29 05:31] LABS: Magnesium 2.7 mg/dL (1.5-2.5)
[2018-09-29 05:33] LABS: Alanine Aminotransferase 32 U/L (10-53); Alkaline Phosphatase 81 U/L (45-117); Phosphorus 3.1 mg/dL (2.5-4.9); Total Protein 7.3 g/dL (6.4-8.2)
[2018-09-29] MEDS: Famotidine PF Inj 20 MG/2 ML Vial IV.PUSH SCH ×2 (08:50→20:44)
[2018-09-29] MEDS: Chlorhexidine 0.12% Oral Kit 15 ML UDC OROPHARYNG SCH ×2 (08:50→20:44)
[2018-09-29] MEDS: Metoprolol Tartrate 100 MG Tablet G-TUBE SCH ×2 (08:50→20:45)
[2018-09-29] MEDS: Senna/Docusate Sodium 8.6/50 MG Tablet PO SCH ×2 (08:52→20:45)
[2018-09-29] MEDS: Propofol 1000 mg/100 ml Inj 1,000 MG/100 ML BOTTLE IV.CONT PRN ×2 (09:11→22:24)
[2018-09-29] MEDS: Acetaminophen 325 MG Tablet PO PRN (09:11)
[2018-09-29 09:52] LABS: Eosinophils 3 % (0-4); Lymphocytes 7 % (9-44); Monocytes 4 % (0-8)
[2018-09-29 09:53] LABS: Ovalocytes 1+; Platelet Estimate Normal (Normal); Toxic Vacuolation Present
[2018-09-29] MEDS ORDERED: fentaNYL Citrate Inj 250 MCG/5 ML Ampul IV.PUSH ONE (12:45)
--- NOTE | 2018-09-29 14:09 | P.PCN ---
Date of procedure: 09/29/18 Procedure: Date: 09/29/18 Procedure: Fiberoptic bronchoscopy Indication: Guidance for percutaneous tracheostomy tube placement by Dr. Dunn. Details of procedure: Informed consent was obtained from family. The patient was laid supine with a rolled towel placed beneath the shoulders to elevate the airway. The patient was preoxygenated with 100% FiO2 via endotracheal tube and sedated with fentanyl 250 mcg IV, Versed 10 mg IV, and vecuronium 10 mg IV. I entered the endotracheal tube with a flexible bronchoscope. The endotracheal tube was withdrawn approximately 17 cm. An introducer needle with angiocatheter was placed in the trachea without any damage to the posterior wall. A size 8 Shiley percutaneous tracheostomy tube was placed. I removed the bronchoscope from the endotracheal tube and inserted it through the new tracheostomy tube and visualized normal tracheal structures. I removed the bronchoscope and the tracheostomy tube was connected to the ventilator circuit. After the tracheostomy tube was sutured in place, I reentered the tracheostomy tube with the bronchoscope. All lung segments were visually inspected and were cleared of any significant blood clots or mucus. The patient tolerated the procedure well without any apparent complications. A stat chest x-ray was ordered and demonstrates satisfactory position.
--- NOTE | 2018-09-29 14:09 | P.PNCC ---
Subjective Subjective Remarks/Hospital Course: 09/18: 68-year-old female past medical history of stroke, left BKA, who was on home hospice until just prior to arrival, presents for an evaluation of fever and altered mental status. According to EMS the patient had not required oxygen until beginning of this week when she had gradual increased demand of her oxygen. End-tidal CO2 prior to arrival was 6. Initial room nasal cannula saturation was 91, she was placed on nonrebreather position of comfort and transfer to emergency department. EMS related that the had elected to revoke the patient's DNR and hospice care prior to transferring her to the hospital. The patient apparently is normally a GCS of 14, apparently she does take some thickened food p.o. department the patient was severely altered with GCS of 6 on arrival [id number] and was intubated by ED attending for an airway protection. 09/19: Remains sedated, orally intubated on mechanical ventilation. CT chest showed right lower lobe lung mass suspicious for malignancy. Patient has a PEG tube following previous stroke. 09/20: Remains sedated, orally intubated on mechanical ventilation. Started on tube feeds. 09/21: Remains sedated, orally intubated on mechanical ventilation. Tolerating tube feeds. Right approximately swelling noted. 09/22 Is not tolerating CPAP trial when decrease PS below 18. Daughter at bedside, says will be here later. Says they don't think they want to proceed with lung biopsy at this time, but on the other hand she discusses the possibility of re-do trach. She says they are not sure how to proceed. I suggested we meet together. Daughter states she has been bedridden since stroke about 4 years ago. Has been in retirement. PEG due to dysphagia, does not eat. Speaks a little but daughter states she has declined significantly over the last 2 weeks. 09/23 No significant change. Patient does not tolerate CPAP. Family is very clear that they do not wish to pursue biopsy or diagnosis of suspected lung cancer. At this time, they wish to continue supportive care with vent and FULL CODE. 09/24 No change. Does not tolerate CPAP. Will diurese for positive fluid balance. 09/25 Now on CPAP 20/5 and not tolerating wean. Continue attempts at diuresis to address positive fluid balance since admission 09/26: Remains sedated, orally intubated on mechanical ventilation. Hold CPAP trials yesterday 09/27 Patient is sedated with Diprivan and intubated. Tolerating tube feeds. Afebrile. 09/28 Patient remains intubated and sedated. T;100.8 Subjective: 09/29 Has not made any progress towards weaning. Family offered comfort measures however they expressed desire to proceed with trach Objective Vital Signs / I&O: Vital Signs 09/28/18 14:51 09/28/18 16:00 09/28/18 16:31 Temperature 98.9 F Pulse Rate 116 H 99 H Respiratory Rate 32 H 16 Blood Pressure 102/53 L 122/68 Pulse Oximetry 99 98 09/28/18 16:45 09/28/18 17:00 09/28/18 17:15 Temperature Pulse Rate 123 H 121 H 120 H Respiratory Rate 24 16 16 Blood Pressure 114/59 L 102/55 L 94/57 L Pulse Oximetry 98 98 98 09/28/18 17:30 09/28/18 17:45 09/28/18 18:00 Temperature Pulse Rate 119 H 118 H 121 H Respiratory Rate 16 16 18 Blood Pressure 95/53 L 95/54 L Pulse Oximetry 99 99 99 09/28/18 18:02 09/28/18 18:15 09/28/18 18:30 Temperature Pulse Rate 121 H 121 H 119 H Respiratory Rate 17 16 16 Blood Pressure 103/69 105/55 L 91/43 L Pulse Oximetry 99 98 99 09/28/18 18:45 09/28/18 19:00 09/28/18 19:15 Temperature Pulse Rate 118 H 119 H 119 H Respiratory Rate 16 16 16 Blood Pressure 105/47 L 85/48 L 87/62 L Pulse Oximetry 98 99 99 09/28/18 19:30 09/28/18 19:45 09/28/18 20:00 Temperature 99.3 F Pulse Rate 118 H 116 H 116 H Respiratory Rate 16 16 16 Blood Pressure 84/52 L 84/53 L 94/56 L Pulse Oximetry 99 99 100 09/28/18 20:15 09/28/18 20:30 09/28/18 20:35 Temperature Pulse Rate 117 H 116 H 114 H Respiratory Rate 16 16 16 Blood Pressure 94/51 L 91/52 L Pulse Oximetry 100 100 100 09/28/18 20:45 09/28/18 21:00 09/28/18 21:19 Temperature Pulse Rate 118 H 121 H 121 H Respiratory Rate 16 16 16 Blood Pressure 96/51 L 95/42 L 86/51 L Pulse Oximetry 100 98 99 09/28/18 21:21 09/28/18 21:30 09/28/18 21:45 Temperature Pulse Rate 121 H 118 H 110 H Respiratory Rate 18 16 16 Blood Pressure 101/59 L 94/52 L 106/51 L Pulse Oximetry 99 98 97 09/28/18 22:00 09/28/18 22:15 09/28/18 22:30 Temperature Pulse Rate 108 H 107 H 105 H Respiratory Rate 16 16 16 Blood Pressure 102/51 L 94/54 L 96/52 L Pulse Oximetry 98 99 99 09/28/18 22:45 09/28/18 23:00 09/28/18 23:15 Temperature Pulse Rate 104 H 103 H 102 H Respiratory Rate 16 16 16 Blood Pressure 98/54 L 103/55 L 103/54 L Pulse Oximetry 100 100 100 09/28/18 23:30 09/28/18 23:45 09/29/18 00:00 Temperature Pulse Rate 109 H 109 H 109 H Respiratory Rate 16 16 16 Blood Pressure 108/54 L 97/54 L 97/55 L Pulse Oximetry 98 98 99 09/29/18 00:07 09/29/18 00:15 09/29/18 00:30 Temperature Pulse Rate 109 H 108 H 115 H Respiratory Rate 16 16 16 Blood Pressure 104/56 L 91/54 L Pulse Oximetry 99 99 96 09/29/18 00:45 09/29/18 01:00 09/29/18 01:15 Temperature Pulse Rate 119 H 121 H 122 H Respiratory Rate 16 16 16 Blood Pressure 94/55 L 97/53 L 101/51 L Pulse Oximetry 95 96 95 09/29/18 01:30 09/29/18 01:45 09/29/18 02:00 Temperature Pulse Rate 122 H 120 H 118 H Respiratory Rate 16 16 16 Blood Pressure 98/45 L 91/52 L 87/49 L Pulse Oximetry 98 98 99 09/29/18 02:15 09/29/18 02:30 09/29/18 02:45 Temperature Pulse Rate 116 H 113 H 119 H Respiratory Rate 16 17 16 Blood Pressure 91/53 L 83/64 L 87/54 L Pulse Oximetry 98 95 97 09/29/18 03:00 09/29/18 03:15 09/29/18 03:30 Temperature Pulse Rate 116 H 119 H 116 H Respiratory Rate 16 16 16 Blood Pressure 97/53 L 92/55 L 87/49 L Pulse Oximetry 99 100 100 09/29/18 03:45 09/29/18 04:00 09/29/18 04:15 Temperature Pulse Rate 113 H 117 H 108 H Respiratory Rate 16 16 16 Blood Pressure 99/54 L 86/52 L 90/52 L Pulse Oximetry 90 L 100 99 09/29/18 04:19 09/29/18 04:24 09/29/18 04:30 Temperature Pulse Rate 107 H 104 H Respiratory Rate 16 16 16 Blood Pressure 95/49 L Pulse Oximetry 99 100 09/29/18 04:45 09/29/18 05:00 09/29/18 05:15 Temperature Pulse Rate 113 H 113 H 111 H Respiratory Rate 16 16 16 Blood Pressure 99/51 L 106/51 L 91/51 L Pulse Oximetry 98 98 99 09/29/18 05:31 09/29/18 05:45 09/29/18 06:00 Temperature Pulse Rate 117 H 122 H 119 H Respiratory Rate 23 17 16 Blood Pressure 141/73 H 120/53 L 94/36 L Pulse Oximetry 99 99 99 09/29/18 06:15 09/29/18 06:30 09/29/18 06:41 Temperature Pulse Rate 114 H 114 H 113 H Respiratory Rate 16 16 16 Blood Pressure 81/45 L 84/49 L 88/49 L Pulse Oximetry 100 100 100 09/29/18 06:43 09/29/18 06:45 09/29/18 07:00 Temperature Pulse Rate 113 H 112 H 111 H Respiratory Rate 16 16 16 Blood Pressure 89/54 L 101/54 L 97/53 L Pulse Oximetry 100 100 100 09/29/18 07:15 09/29/18 07:31 09/29/18 07:45 Temperature Pulse Rate 113 H 117 H 113 H Respiratory Rate 16 16 17 Blood Pressure 102/50 L 134/58 L 105/53 L Pulse Oximetry 100 100 100 09/29/18 08:00 09/29/18 08:15 09/29/18 08:30 Temperature 101.3 F H Pulse Rate 112 H 112 H 112 H Respiratory Rate 16 16 16 Blood Pressure 95/54 L 102/55 L 101/51 L Pulse Oximetry 100 100 100 09/29/18 08:45 09/29/18 10:00 09/29/18 11:14 Temperature Pulse Rate 111 H 87 81 Respiratory Rate 16 16 Blood Pressure 89/50 L Pulse Oximetry 100 09/29/18 12:00 09/29/18 14:02 Temperature Pulse Rate Respiratory Rate 16 Blood Pressure Pulse Oximetry 100 100 Intake & Output 09/28/18 09/29/18 09/29/18 18:59 06:59 18:59 Intake Total 1100 / 1100 600 / 600 350 / 350 Output Total 500 / 500 250 / 250 Balance 600 / 600 350 / 350 350 / 350 Weight 57.8 kg Intake: IV 100 / 100 Diprivan 1000 mg/100 ml Inj 1, 100 / 100 000 mg In 100 ml @ 5 MCG/KG/MIN 2.041 mls/hr IV.CONT TITRATE PRN Rx#:[id number] Tube Feeding 550 / 550 Tube Irrigant 300 / 300 Water Bolus Amount 350 / 350 Free Water Amount 250 / 250 250 / 250 250 / 250 Output: Urine 500 / 500 Stool 150 / 150 Urine Amount (Catheter) 100 / 100 Female External 100 / 100 Other: Date of Last Bowel Movement 09/28/18 09/29/18 09/29/18 Result Diagrams: 09/29/18 03:24 09/29/18 03:24 Objective Remarks: GENERAL: Well-nourished, well-developed patient who is orotracheally intubated. SKIN: Warm and dry. HEAD: Atraumatic. Normocephalic. EYES: Pupils equal and round. No scleral icterus. No injection or drainage. ENT: No nasal bleeding or discharge. Mucous membranes pink and moist. NECK: Trachea midline. No JVD. CARDIOVASCULAR: Regular rate and rhythm. No murmurs rubs or gallops. RESPIRATORY: Orotracheally intubated on mechanical ventilation. B/L equal air entry GASTROINTESTINAL: Abdomen soft, non-tender, nondistended. PEG in place, tube feeds running. MUSCULOSKELETAL: Extremities without clubbing, cyanosis, or edema. s/p L AKA. NEUROLOGICAL: Awakens, looks around. Blinks and squeezes hand to command Assessment and Plan - Assessment and Plan Plan: NEURO: History of stroke On Fentanyl infusion for sedation. Daily sedation vacation. Monitor neuro status RESP: Acute respiratory failure on mechanical ventilation Emphysema Lung mass History of prior trach after stroke, has been subsequently decannulated Per Dr. De Jesus. not wishing to pursue CT-guided biopsy. Continue with vent support keep sats >92% Daily CPAP trials. Vent bundle/nebs. Family agreed for trach Percutaneous tracheostomy performed at bedside 09/29. CV: HTN Monitor BP//heart rate keep MAP>65mmHg. Continue metoprolol 100 bid, Cardizem 60mg q6. GI: PEG in place. Glucerna 1.5 @60ml/hr Resume tube feeds post trach. FEN/RENAL: Acute hypernatremia Hypokalemia resolved Monitor renal function, I/O's, electrolytes replacement per protocol. Free water 250ml Q12 , ID: HCAP UTI Urine culture from 09/18 with providentia and Proteus. Urine and sputum cultures negative Completed 8 day course of zosyn. Monitor for signs of infections ( Fever, WBC) check sputum cx, UA with cx if indicated. HEME: R brachial DVT Lovenox 60 mg subcu every 12 hours. Placed on hold for trach, will resume ENDO: Diabetes mellitus Insulin sliding scale PROPH: SCD/Lovenox for DVT prophylaxis. Resume Lovenox. Famotidine for stress ulcer prophylaxis. ACCESS: PIV x2. Palliative care is following Full code Level 2 follow-up
--- NOTE | 2018-09-29 14:38 | P.OP ---
- Preoperative Diagnosis (1) Respiratory failure Preoperative Diagnosis: Respiratory failure Postoperative Diagnosis: Respiratory failure Date of procedure: 09/29/18 Procedure: Percutaneous tracheostomy Implants: 8.0 Shiley cuffed tracheostomy Anesthesia: other Surgeon: Dion Dunn MD Estimated blood loss (mL): 5 Pathology: none sent Operation and Findings: Indication for procedure: The patient is a 68-year-old female with a history of CVA who was admitted to the medical intensive care unit with ventilator dependent respiratory failure. Patient was recommended to undergo percutaneous tracheostomy for continued ventilator support and weaning. The patient's family strongly desired continued aggressive care as well as percutaneous tracheostomy placement. Procedure: The patient underwent conscious sedation as well as bronchoscopy by Dr. Carter. After timeout was performed the patient's neck was prepped and draped in a sterile fashion. Local anesthetic was instilled in the anterior neck. A horizontal incision was made with a 15 blade scalpel 2 fingerbreadths above the sternal notch. Hemostat was used to dissect down to the pretracheal fascia. There was minimal tissue between the skin and the pretracheal fascia as the patient had previously had a tracheostomy. We used the 8 Shiley blue Rhino percutaneous tracheostomy kit to place the tracheostomy. The introducer needle was placed below the first tracheal ring and was visualized on bronchoscopy. The wire was passed without difficulty into the trachea. This tract was dilated with the Blue Rhino kit and the size 8 Shiley tracheostomy was placed in our tracheotomy without difficulty using Seldinger technique. The cuff was inflated and this was sutured in place with Prolene sutures. The patient did undergo a brief bronchoscopy through this newly placed tracheostomy and this confirms to be in the trachea in adequate position. The patient tolerated the procedure well with sats over 95% throughout the procedure. The patient had good and tidal CO2 return before and after tracheostomy placement. The trach collar placed around the patient and an x-ray was ordered. Patient was returned to normal preoperative ventilator settings. I was present and scrubbed for the entire procedure.
--- NOTE | 2018-09-29 14:48 | XR ---
EXAM DATE: 09/29/2018 2:40 PM EST AGE/SEX: 68 years / Female INDICATIONS: Respiratory failure. CLINICAL DATA: This is the patient's subsequent encounter. Patient reports that signs and symptoms h ave been present for 1 week and indicates a pain score of Nonresponsive. MEDICAL/SURGICAL HISTORY: Diabetes. Acute respiratory failure. CVA. Dysphasia. Hemiparesis. Hem iplegia. Hypertension. Hypoxia. Left above knee amputation. PEG tube placement. . COMPARISON: [facility] [place], CHEST 1V SINGLE AP, 09/27/2018. . FINDINGS: A single AP view of the chest demonstrates no significant change other than placement of a tracheosto my tube which is in good position. The right lower lobe rounded area consolidation is unchanged. Inte rstitial prominence to both bases is stable. No discernible effusions. Heart is normal in size. CONCLUSION: 1. Interval tracheostomy tube placement. 2. Unchanged right lower lobe consolidation and bibasilar interstitial prominence. Electronically signed by: Juan Cedeño MD Board Certified Radiologist 09/29/2018 2:47 PM EST
--- NOTE | 2018-09-29 17:48 | P.PNPL ---
Subjective Interval history: 68 YOAA female who was with Hospice svc, now rescended Daughter at , she dw her step father and do not want any lung bx Sedated No fever Put on CPAP Had trach done Physical Exam Vital signs: Vital Signs 09/28/18 18:00 09/28/18 18:02 09/28/18 18:15 Temperature Pulse Rate 121 H 121 H 121 H Respiratory Rate 18 17 16 Blood Pressure 103/69 105/55 L Pulse Oximetry 99 99 98 09/28/18 18:30 09/28/18 18:45 09/28/18 19:00 Temperature Pulse Rate 119 H 118 H 119 H Respiratory Rate 16 16 16 Blood Pressure 91/43 L 105/47 L 85/48 L Pulse Oximetry 99 98 99 09/28/18 19:15 09/28/18 19:30 09/28/18 19:45 Temperature Pulse Rate 119 H 118 H 116 H Respiratory Rate 16 16 16 Blood Pressure 87/62 L 84/52 L 84/53 L Pulse Oximetry 99 99 99 09/28/18 20:00 09/28/18 20:15 09/28/18 20:30 Temperature 99.3 F Pulse Rate 116 H 117 H 116 H Respiratory Rate 16 16 16 Blood Pressure 94/56 L 94/51 L 91/52 L Pulse Oximetry 100 100 100 09/28/18 20:35 09/28/18 20:45 09/28/18 21:00 Temperature Pulse Rate 114 H 118 H 121 H Respiratory Rate 16 16 16 Blood Pressure 96/51 L 95/42 L Pulse Oximetry 100 100 98 09/28/18 21:19 09/28/18 21:21 09/28/18 21:30 Temperature Pulse Rate 121 H 121 H 118 H Respiratory Rate 16 18 16 Blood Pressure 86/51 L 101/59 L 94/52 L Pulse Oximetry 99 99 98 09/28/18 21:45 09/28/18 22:00 09/28/18 22:15 Temperature Pulse Rate 110 H 108 H 107 H Respiratory Rate 16 16 16 Blood Pressure 106/51 L 102/51 L 94/54 L Pulse Oximetry 97 98 99 09/28/18 22:30 09/28/18 22:45 09/28/18 23:00 Temperature Pulse Rate 105 H 104 H 103 H Respiratory Rate 16 16 16 Blood Pressure 96/52 L 98/54 L 103/55 L Pulse Oximetry 99 100 100 09/28/18 23:15 09/28/18 23:30 09/28/18 23:45 Temperature Pulse Rate 102 H 109 H 109 H Respiratory Rate 16 16 16 Blood Pressure 103/54 L 108/54 L 97/54 L Pulse Oximetry 100 98 98 09/29/18 00:00 09/29/18 00:07 09/29/18 00:15 Temperature Pulse Rate 109 H 109 H 108 H Respiratory Rate 16 16 16 Blood Pressure 97/55 L 104/56 L Pulse Oximetry 99 99 99 09/29/18 00:30 09/29/18 00:45 09/29/18 01:00 Temperature Pulse Rate 115 H 119 H 121 H Respiratory Rate 16 16 16 Blood Pressure 91/54 L 94/55 L 97/53 L Pulse Oximetry 96 95 96 09/29/18 01:15 09/29/18 01:30 09/29/18 01:45 Temperature Pulse Rate 122 H 122 H 120 H Respiratory Rate 16 16 16 Blood Pressure 101/51 L 98/45 L 91/52 L Pulse Oximetry 95 98 98 09/29/18 02:00 09/29/18 02:15 09/29/18 02:30 Temperature Pulse Rate 118 H 116 H 113 H Respiratory Rate 16 16 17 Blood Pressure 87/49 L 91/53 L 83/64 L Pulse Oximetry 99 98 95 09/29/18 02:45 09/29/18 03:00 09/29/18 03:15 Temperature Pulse Rate 119 H 116 H 119 H Respiratory Rate 16 16 16 Blood Pressure 87/54 L 97/53 L 92/55 L Pulse Oximetry 97 99 100 09/29/18 03:30 09/29/18 03:45 09/29/18 04:00 Temperature Pulse Rate 116 H 113 H 117 H Respiratory Rate 16 16 16 Blood Pressure 87/49 L 99/54 L 86/52 L Pulse Oximetry 100 90 L 100 09/29/18 04:15 09/29/18 04:19 09/29/18 04:24 Temperature Pulse Rate 108 H 107 H Respiratory Rate 16 16 16 Blood Pressure 90/52 L Pulse Oximetry 99 99 09/29/18 04:30 09/29/18 04:45 09/29/18 05:00 Temperature Pulse Rate 104 H 113 H 113 H Respiratory Rate 16 16 16 Blood Pressure 95/49 L 99/51 L 106/51 L Pulse Oximetry 100 98 98 09/29/18 05:15 09/29/18 05:31 09/29/18 05:45 Temperature Pulse Rate 111 H 117 H 122 H Respiratory Rate 16 23 17 Blood Pressure 91/51 L 141/73 H 120/53 L Pulse Oximetry 99 99 99 09/29/18 06:00 09/29/18 06:15 09/29/18 06:30 Temperature Pulse Rate 119 H 114 H 114 H Respiratory Rate 16 16 16 Blood Pressure 94/36 L 81/45 L 84/49 L Pulse Oximetry 99 100 100 09/29/18 06:41 09/29/18 06:43 09/29/18 06:45 Temperature Pulse Rate 113 H 113 H 112 H Respiratory Rate 16 16 16 Blood Pressure 88/49 L 89/54 L 101/54 L Pulse Oximetry 100 100 100 09/29/18 07:00 09/29/18 07:15 09/29/18 07:31 Temperature Pulse Rate 111 H 113 H 117 H Respiratory Rate 16 16 16 Blood Pressure 97/53 L 102/50 L 134/58 L Pulse Oximetry 100 100 100 09/29/18 07:45 09/29/18 08:00 09/29/18 08:15 Temperature 101.3 F H Pulse Rate 113 H 112 H 112 H Respiratory Rate 17 16 16 Blood Pressure 105/53 L 95/54 L 102/55 L Pulse Oximetry 100 100 100 09/29/18 08:30 09/29/18 08:45 09/29/18 10:00 Temperature Pulse Rate 112 H 111 H 87 Respiratory Rate 16 16 16 Blood Pressure 101/51 L 89/50 L 96/49 L Pulse Oximetry 100 100 100 09/29/18 10:15 09/29/18 10:30 09/29/18 10:45 Temperature Pulse Rate 85 81 82 Respiratory Rate 16 16 16 Blood Pressure 97/48 L 94/51 L 91/49 L Pulse Oximetry 100 100 100 09/29/18 11:00 09/29/18 11:14 09/29/18 11:15 Temperature Pulse Rate 82 81 80 Respiratory Rate 16 16 16 Blood Pressure 97/53 L 92/54 L Pulse Oximetry 100 100 09/29/18 11:30 09/29/18 11:45 09/29/18 12:00 Temperature Pulse Rate 83 84 85 Respiratory Rate 16 16 16 Blood Pressure 96/50 L 91/48 L 94/54 L Pulse Oximetry 100 100 100 09/29/18 12:15 09/29/18 12:30 09/29/18 12:45 Temperature Pulse Rate 82 81 81 Respiratory Rate 16 16 16 Blood Pressure 98/55 L 98/53 L 101/50 L Pulse Oximetry 100 100 100 09/29/18 13:00 09/29/18 13:41 09/29/18 13:43 Temperature Pulse Rate 82 86 85 Respiratory Rate 16 19 25 H Blood Pressure 97/53 L 99/52 L 111/49 L Pulse Oximetry 100 99 100 09/29/18 13:45 09/29/18 13:49 09/29/18 13:51 Temperature Pulse Rate 90 82 81 Respiratory Rate 29 H 24 23 Blood Pressure 159/69 H 110/55 L 96/45 L Pulse Oximetry 99 99 100 09/29/18 13:54 09/29/18 13:58 09/29/18 14:00 Temperature Pulse Rate 82 83 84 Respiratory Rate 16 16 16 Blood Pressure 78/38 L 75/41 L 77/41 L Pulse Oximetry 100 100 100 09/29/18 14:01 09/29/18 14:02 09/29/18 14:04 Temperature Pulse Rate 84 84 Respiratory Rate 16 16 Blood Pressure 74/42 L 82/47 L Pulse Oximetry 100 100 99 09/29/18 14:12 09/29/18 14:15 09/29/18 14:30 Temperature Pulse Rate 87 87 85 Respiratory Rate 16 16 17 Blood Pressure 108/54 L 107/53 L 104/50 L Pulse Oximetry 100 100 98 09/29/18 14:45 09/29/18 15:00 09/29/18 15:15 Temperature Pulse Rate 85 86 82 Respiratory Rate 16 16 16 Blood Pressure 105/52 L 108/53 L 96/46 L Pulse Oximetry 96 09/29/18 15:30 09/29/18 15:45 09/29/18 16:00 Temperature Pulse Rate 82 81 80 Respiratory Rate 16 16 16 Blood Pressure 92/48 L 86/47 L 87/50 L Pulse Oximetry 100 100 100 09/29/18 16:06 09/29/18 16:15 09/29/18 16:30 Temperature Pulse Rate 80 80 81 Respiratory Rate 16 16 16 Blood Pressure 95/50 L 96/52 L Pulse Oximetry 100 09/29/18 16:45 09/29/18 17:00 09/29/18 17:15 Temperature Pulse Rate 82 83 83 Respiratory Rate 16 16 16 Blood Pressure 102/58 L 101/52 L 99/54 L Pulse Oximetry 99 09/29/18 17:30 Temperature Pulse Rate 83 Respiratory Rate 16 Blood Pressure 104/57 L Pulse Oximetry 97 Intake & Output 09/28/18 09/29/18 09/29/18 18:59 06:59 18:59 Intake Total 1100 / 1100 600 / 600 350 / 350 Output Total 500 / 500 250 / 250 Balance 600 / 600 350 / 350 350 / 350 Weight 57.8 kg Intake: IV 100 / 100 Diprivan 1000 mg/100 ml Inj 1, 100 / 100 000 mg In 100 ml @ 5 MCG/KG/MIN 2.041 mls/hr IV.CONT TITRATE PRN Rx#:[id number] Tube Feeding 550 / 550 Tube Irrigant 300 / 300 Water Bolus Amount 350 / 350 Free Water Amount 250 / 250 250 / 250 250 / 250 Output: Urine 500 / 500 Stool 150 / 150 Urine Amount (Catheter) 100 / 100 Female External 100 / 100 Other: Date of Last Bowel Movement 09/28/18 09/29/18 09/29/18 GENERAL: Elderly AA female on Vent SKIN: Warm and dry. HEAD: Normocephalic. EYES: No scleral icterus. No injection or drainage. NECK: Supple, trachea midline. No JVD or lymphadenopathy. trach CARDIOVASCULAR: Regular rate and rhythm without murmurs, gallops, or rubs. RESPIRATORY: Breath sounds equal bilaterally. No accessory muscle use. GASTROINTESTINAL: Abdomen soft, non-tender, nondistended. has PEG MUSCULOSKELETAL: No cyanosis, or edema. BACK: Nontender without obvious deformity. No CVA tenderness. - Urinary Catheter Management Indwelling Temp Sensing Catheter Cath placed during this visit: yes, but has since been removed by the nurse Reason for continuing: Severe pressure ulcer/wound Insertion date: 09/18/18 Insertion time: 18:50 Removal date: 09/23/18 Removal time: 16:00 Female External Cath placed during this visit: no Assessment and Plan - Plan IMPRESSION: VDRF large Rt lung mass COPD HTN H/O CVA PLAN: Cont vent support CPAP trial Aerosol nebs IV Solumedrol Cont Abx Trach care.
[2018-09-29 18:35] LABS: Bilirubin,Urine Negative (Negative); Clarity,Urine Hazy (Clear); Color,Urine Yellow (Yellw/Straw); Glucose,Urine (UA) Negative (Negative); Hyaline Casts,Urine 1 /lpf (0-3); Leukocyte Esterase,Urine Negative (Negative); Mucus,Urine Few /lpf (Occasional); Nitrite,Urine Negative (Negative); Specific Gravity,Urine 1.017 (1.002-1.035); Squamous Epithelial Cell,Urine 3 /hpf (0-5)
[2018-09-29] MEDS: Enoxaparin Inj 60 MG/0.6 ML Syringe SQ SCH (20:44)
[2018-09-30] MEDS: Insulin NovoLIN Regular Correctional Sugar Inj SQ SCH ×4 (00:22→19:30)
[2018-09-30] MEDS: Oral Hygiene Kit OROPHARYNG SCH ×3 (00:23→19:31)
[2018-09-30] MEDS: dilTIAZem 60 MG Tablet PO SCH ×2 (03:00→09:53)
[2018-09-30 06:35] LABS: Alanine Aminotransferase 29 U/L (10-53); Phosphorus 3.1 mg/dL (2.5-4.9)
[2018-09-30 06:37] LABS: Alkaline Phosphatase 92 U/L (45-117); Total Protein 7.4 g/dL (6.4-8.2)
[2018-09-30 06:38] LABS: Albumin 2.1 g/dL (3.4-5.0); Anion Gap 10 meq/L (5-15); Aspartate Aminotransferase 32 U/L (15-37); Baso # (Auto) 0.1 th/mm3 (0.0-0.2); Baso % (Auto) 0.8 % (0.0-2.0); Blood Urea Nitrogen 19 mg/dL (7-18); Calcium 8.3 mg/dL (8.5-10.1); Chloride 108 meq/L (98-107); Eos # (Auto) 0.3 th/mm3 (0.0-0.4); Glomerular Filtration Rate Greater Than 89 mL/min (>89); Glucose,Random 105 mg/dL (74-106); Hematocrit 26.5 % (35.0-46.0); Hemoglobin 7.9 gm/dL (11.6-15.3); Lymph # (Auto) 0.7 th/mm3 (1.0-4.8); Lymph % (Auto) 6.2 % (9.0-44.0); Magnesium 2.6 mg/dL (1.5-2.5); Mean Corpuscular Volume 76.8 fL (80.0-100.0); Mean Platelet Volume 10.1 fL (7.0-11.0); Mono # (Auto) 1.1 th/mm3 (0.0-0.9); Mono % (Auto) 9.8 % (0.0-8.0); Neut # (Auto) 9.3 th/mm3 (1.8-7.7); Neut % (Auto) 80.2 % (16.0-70.0); Platelet Count 230 th/mm3 (150-450); Red Blood Count 3.45 mil/mm3 (4.00-5.30); Red Cell Distribution Width 19.5 % (11.6-17.2); Sodium 142 meq/L (136-145); White Blood Count 11.6 th/mm3 (4.0-11.0)
[2018-09-30 06:39] LABS: Mean Corpuscular HGB Conc 29.9 % (32.0-36.0); Potassium 3.8 meq/L (3.5-5.1)
[2018-09-30] MEDS: Metoprolol Tartrate 100 MG Tablet G-TUBE SCH (09:53)
[2018-09-30] MEDS: Senna/Docusate Sodium 8.6/50 MG Tablet PO SCH ×2 (09:53→22:01)
[2018-09-30] MEDS: Enoxaparin Inj 60 MG/0.6 ML Syringe SQ SCH ×2 (09:53→22:00)
[2018-09-30] MEDS: Chlorhexidine 0.12% Oral Kit 15 ML UDC OROPHARYNG SCH ×2 (09:54→22:00)
[2018-09-30] MEDS: Famotidine PF Inj 20 MG/2 ML Vial IV.PUSH SCH ×2 (09:54→22:01)
--- NOTE | 2018-09-30 10:34 | P.PNCC ---
Subjective Subjective Remarks/Hospital Course: 09/18: 68-year-old female past medical history of stroke, left BKA, who was on home hospice until just prior to arrival, presents for an evaluation of fever and altered mental status. According to EMS the patient had not required oxygen until beginning of this week when she had gradual increased demand of her oxygen. End-tidal CO2 prior to arrival was 6. Initial room nasal cannula saturation was 91, she was placed on nonrebreather position of comfort and transfer to emergency department. EMS related that the had elected to revoke the patient's DNR and hospice care prior to transferring her to the hospital. The patient apparently is normally a GCS of 14, apparently she does take some thickened food p.o. department the patient was severely altered with GCS of 6 on arrival [id number] and was intubated by ED attending for an airway protection. 09/19: Remains sedated, orally intubated on mechanical ventilation. CT chest showed right lower lobe lung mass suspicious for malignancy. Patient has a PEG tube following previous stroke. 09/20: Remains sedated, orally intubated on mechanical ventilation. Started on tube feeds. 09/21: Remains sedated, orally intubated on mechanical ventilation. Tolerating tube feeds. Right approximately swelling noted. 09/22 Is not tolerating CPAP trial when decrease PS below 18. Daughter at bedside, says will be here later. Says they don't think they want to proceed with lung biopsy at this time, but on the other hand she discusses the possibility of re-do trach. She says they are not sure how to proceed. I suggested we meet together. Daughter states she has been bedridden since stroke about 4 years ago. Has been in [facility]. PEG due to dysphagia, does not eat. Speaks a little but daughter states she has declined significantly over the last 2 weeks. 09/23 No significant change. Patient does not tolerate CPAP. Family is very clear that they do not wish to pursue biopsy or diagnosis of suspected lung cancer. At this time, they wish to continue supportive care with vent and FULL CODE. 09/24 No change. Does not tolerate CPAP. Will diurese for positive fluid balance. 09/25 Now on CPAP 20/5 and not tolerating wean. Continue attempts at diuresis to address positive fluid balance since admission 09/26: Remains sedated, orally intubated on mechanical ventilation. Hold CPAP trials yesterday 09/27 Patient is sedated with Diprivan and intubated. Tolerating tube feeds. Afebrile. 09/28 Patient remains intubated and sedated. T;100.8 09/29 Has not made any progress towards weaning. Family offered comfort measures however they expressed desire to proceed with trach Subjective: 09/30 status post bedside tracheostomy yesterday by Dr. Gavin. Discontinued propofol drip. On CPAP 11/01 for 2 hours today. BP is low, will need to hold metoprolol and titrate back on cardizem (nurses held some doses yesterday too). Positive fluid balance but not able to diurese today due to low BP. Awaiting bed at [facility]. Objective Vital Signs / I&O: Vital Signs 09/29/18 10:45 09/29/18 11:00 09/29/18 11:14 Temperature Pulse Rate 82 82 81 Respiratory Rate 16 16 16 Blood Pressure 91/49 L 97/53 L Pulse Oximetry 100 100 09/29/18 11:15 09/29/18 11:30 09/29/18 11:45 Temperature Pulse Rate 80 83 84 Respiratory Rate 16 16 16 Blood Pressure 92/54 L 96/50 L 91/48 L Pulse Oximetry 100 100 100 09/29/18 12:00 09/29/18 12:15 09/29/18 12:30 Temperature Pulse Rate 85 82 81 Respiratory Rate 16 16 16 Blood Pressure 94/54 L 98/55 L 98/53 L Pulse Oximetry 100 100 100 09/29/18 12:45 09/29/18 13:00 09/29/18 13:41 Temperature Pulse Rate 81 82 86 Respiratory Rate 16 16 19 Blood Pressure 101/50 L 97/53 L 99/52 L Pulse Oximetry 100 100 99 09/29/18 13:43 09/29/18 13:45 09/29/18 13:49 Temperature Pulse Rate 85 90 82 Respiratory Rate 25 H 29 H 24 Blood Pressure 111/49 L 159/69 H 110/55 L Pulse Oximetry 100 99 99 09/29/18 13:51 09/29/18 13:54 09/29/18 13:58 Temperature Pulse Rate 81 82 83 Respiratory Rate 23 16 16 Blood Pressure 96/45 L 78/38 L 75/41 L Pulse Oximetry 100 100 100 09/29/18 14:00 09/29/18 14:01 09/29/18 14:02 Temperature Pulse Rate 84 84 Respiratory Rate 16 16 Blood Pressure 77/41 L 74/42 L Pulse Oximetry 100 100 100 09/29/18 14:04 09/29/18 14:12 09/29/18 14:15 Temperature Pulse Rate 84 87 87 Respiratory Rate 16 16 16 Blood Pressure 82/47 L 108/54 L 107/53 L Pulse Oximetry 99 100 100 09/29/18 14:30 09/29/18 14:45 09/29/18 15:00 Temperature Pulse Rate 85 85 86 Respiratory Rate 17 16 16 Blood Pressure 104/50 L 105/52 L 108/53 L Pulse Oximetry 98 96 09/29/18 15:15 09/29/18 15:30 09/29/18 15:45 Temperature Pulse Rate 82 82 81 Respiratory Rate 16 16 16 Blood Pressure 96/46 L 92/48 L 86/47 L Pulse Oximetry 100 100 09/29/18 16:00 09/29/18 16:06 09/29/18 16:15 Temperature Pulse Rate 80 80 80 Respiratory Rate 16 16 16 Blood Pressure 87/50 L 95/50 L Pulse Oximetry 100 100 09/29/18 16:30 09/29/18 16:45 09/29/18 17:00 Temperature Pulse Rate 81 82 83 Respiratory Rate 16 16 16 Blood Pressure 96/52 L 102/58 L 101/52 L Pulse Oximetry 09/29/18 17:15 09/29/18 17:30 09/29/18 17:45 Temperature Pulse Rate 83 83 82 Respiratory Rate 16 16 16 Blood Pressure 99/54 L 104/57 L 105/58 L Pulse Oximetry 99 100 09/29/18 18:00 09/29/18 18:15 09/29/18 18:30 Temperature Pulse Rate 82 83 85 Respiratory Rate 17 16 16 Blood Pressure 105/55 L 99/50 L 103/54 L Pulse Oximetry 09/29/18 18:45 09/29/18 19:00 09/29/18 19:15 Temperature Pulse Rate 86 85 88 Respiratory Rate 16 16 16 Blood Pressure 104/57 L 109/55 L 104/72 Pulse Oximetry 09/29/18 19:30 09/29/18 19:45 09/29/18 20:00 Temperature 98.3 F Pulse Rate 91 H 91 H 90 Respiratory Rate 16 16 16 Blood Pressure 104/51 L 108/53 L 103/52 L Pulse Oximetry 99 99 100 09/29/18 20:15 09/29/18 20:25 09/29/18 20:30 Temperature Pulse Rate 90 92 H 93 H Respiratory Rate 17 20 16 Blood Pressure 103/76 106/51 L Pulse Oximetry 100 100 100 09/29/18 20:55 09/29/18 21:00 09/29/18 21:15 Temperature Pulse Rate 101 H 101 H 98 H Respiratory Rate 16 16 16 Blood Pressure 115/55 L 106/55 L 104/51 L Pulse Oximetry 97 97 96 09/29/18 21:30 09/29/18 21:45 09/29/18 22:00 Temperature Pulse Rate 94 H 95 H 92 H Respiratory Rate 16 16 16 Blood Pressure 98/54 L 87/49 L 95/54 L Pulse Oximetry 98 100 100 09/29/18 22:15 09/29/18 22:30 09/29/18 22:45 Temperature Pulse Rate 91 H 95 H 97 H Respiratory Rate 16 16 16 Blood Pressure 99/50 L 96/51 L 98/51 L Pulse Oximetry 100 100 100 09/29/18 23:00 09/29/18 23:15 09/29/18 23:30 Temperature Pulse Rate 92 H 90 92 H Respiratory Rate 16 16 16 Blood Pressure 103/53 L 99/52 L 102/51 L Pulse Oximetry 100 100 100 09/29/18 23:45 09/30/18 00:00 09/30/18 00:15 Temperature Pulse Rate 91 H 92 H 96 H Respiratory Rate 16 18 16 Blood Pressure 98/55 L 97/50 L 92/55 L Pulse Oximetry 100 100 100 09/30/18 00:30 09/30/18 00:45 09/30/18 00:53 Temperature Pulse Rate 94 H 93 H 100 H Respiratory Rate 16 16 16 Blood Pressure 96/55 L 93/55 L Pulse Oximetry 100 100 100 09/30/18 01:00 09/30/18 01:15 09/30/18 01:30 Temperature Pulse Rate 94 H 96 H 97 H Respiratory Rate 16 16 16 Blood Pressure 93/55 L 93/54 L 89/52 L Pulse Oximetry 100 100 100 09/30/18 01:45 09/30/18 02:00 09/30/18 02:15 Temperature Pulse Rate 96 H 98 H 96 H Respiratory Rate 16 16 16 Blood Pressure 92/53 L 97/53 L 97/52 L Pulse Oximetry 100 100 100 09/30/18 02:30 09/30/18 02:45 09/30/18 03:00 Temperature Pulse Rate 97 H 96 H 99 H Respiratory Rate 16 16 16 Blood Pressure 95/55 L 88/64 L 100/50 L Pulse Oximetry 100 98 100 09/30/18 03:15 09/30/18 03:30 09/30/18 03:45 Temperature Pulse Rate 98 H 100 H 100 H Respiratory Rate 16 16 16 Blood Pressure 97/55 L 96/51 L 94/51 L Pulse Oximetry 100 100 100 09/30/18 04:00 09/30/18 04:15 09/30/18 04:30 Temperature Pulse Rate 100 H 102 H 102 H Respiratory Rate 16 16 16 Blood Pressure 96/51 L 98/52 L 105/52 L Pulse Oximetry 100 98 100 09/30/18 04:45 09/30/18 04:48 09/30/18 05:00 Temperature Pulse Rate 101 H 103 H 103 H Respiratory Rate 16 16 16 Blood Pressure 102/52 L 100/51 L Pulse Oximetry 100 100 100 09/30/18 05:15 09/30/18 05:30 09/30/18 05:45 Temperature Pulse Rate 104 H 105 H 105 H Respiratory Rate 16 16 16 Blood Pressure 104/55 L 105/51 L 101/55 L Pulse Oximetry 100 100 100 09/30/18 06:00 09/30/18 06:15 09/30/18 06:30 Temperature Pulse Rate 106 H 109 H 103 H Respiratory Rate 24 16 16 Blood Pressure 96/51 L 91/47 L 91/49 L Pulse Oximetry 95 100 100 09/30/18 08:25 09/30/18 10:23 Temperature Pulse Rate 100 H Respiratory Rate 8 L 18 Blood Pressure Pulse Oximetry 100 96 Intake & Output 09/29/18 09/30/18 09/30/18 18:59 06:59 18:59 Intake Total 350 / 350 811 / 811 250 / 250 Output Total 1100 / 1100 600 / 600 Balance -750 / -750 211 / 211 250 / 250 Weight 58.3 kg Intake: IV 100 / 100 100 / 100 Diprivan 1000 mg/100 ml Inj 1, 100 / 100 100 / 100 000 mg In 100 ml @ 5 MCG/KG/MIN 2.041 mls/hr IV.CONT TITRATE PRN Rx#:[id number] Tube Feeding 211 / 211 Water Bolus Amount 250 / 250 Free Water Amount 250 / 250 250 / 250 250 / 250 Output: Stool 1000 / 1000 200 / 200 Urine Amount (Catheter) 100 / 100 400 / 400 Female External 100 / 100 400 / 400 Other: # Incontinent Voids 2 Date of Last Bowel Movement 09/29/18 09/30/18 Result Diagrams: 09/30/18 04:12 09/30/18 04:12 Objective Remarks: GENERAL: Well-nourished, well-developed patient. SKIN: Warm and dry. HEAD: Atraumatic. Normocephalic. EYES: Pupils equal and round. No scleral icterus. No injection or drainage. ENT: No nasal bleeding or discharge. Mucous membranes pink and moist. NECK: Tracheostomy in place, slight pink tinge to secretions, no active bleeding. CARDIOVASCULAR: Regular rate and rhythm. No murmurs rubs or gallops. RESPIRATORY: Orotracheally intubated on mechanical ventilation. B/L equal air entry GASTROINTESTINAL: Abdomen soft, non-tender, nondistended. PEG in place, tube feeds running. MUSCULOSKELETAL: Extremities without clubbing, cyanosis, or edema. s/p L AKA. NEUROLOGICAL: Awakens, looks around. Blinks and squeezes hand to command Assessment and Plan - Assessment and Plan Plan: NEURO: History of stroke On Fentanyl infusion for sedation. D/c propofol. Lortab prn pain. Monitor neuro status RESP: Acute respiratory failure on mechanical ventilation Emphysema Lung mass History of prior trach after stroke, has been subsequently decannulated Per Dr. De Jesus. not wishing to pursue CT-guided biopsy. Continue with vent support Daily CPAP trials. Vent bundle/nebs. Percutaneous tracheostomy performed at bedside 09/29. CV: HTN Monitor BP//heart rate keep MAP>65mmHg. Hold metoprolol 100 bid, decrease Cardizem to 30mg q6 with hold orders. GI: PEG in place. Glucerna 1.5 @60ml/hr Resume tube feeds post trach. FEN/RENAL: Acute hypernatremia Hypokalemia resolved Will resume efforts at diuresis when BP better. Monitor renal function, I/O's, electrolytes replacement per protocol. Free water 250ml Q12 , ID: HCAP UTI Urine culture from 09/18 with providentia and Proteus. Urine and sputum cultures negative Completed 8 day course of zosyn. Monitor for signs of infections ( Fever, WBC) check sputum cx, UA with cx if indicated. HEME: R brachial DVT Lovenox 60 mg subcu every 12 hours. Held for trach, resumed. ENDO: Diabetes mellitus Insulin sliding scale PROPH: SCD/Lovenox for DVT prophylaxis. Resume Lovenox. Famotidine for stress ulcer prophylaxis. ACCESS: PIV x2. Discussed with case management: awaiting bed availability at [facility]. Full code Level 2 follow-up
--- NOTE | 2018-09-30 10:41 | P.PNGS ---
Subjective Patient reports: other (Status post tracheostomy) Interval history: Resting in bed Eyes closed No issues with trach overnight per [facility] Physical Exam Vital signs: Vital Signs 09/29/18 10:45 09/29/18 11:00 09/29/18 11:14 Temperature Pulse Rate 82 82 81 Respiratory Rate 16 16 16 Blood Pressure 91/49 L 97/53 L Pulse Oximetry 100 100 09/29/18 11:15 09/29/18 11:30 09/29/18 11:45 Temperature Pulse Rate 80 83 84 Respiratory Rate 16 16 16 Blood Pressure 92/54 L 96/50 L 91/48 L Pulse Oximetry 100 100 100 09/29/18 12:00 09/29/18 12:15 09/29/18 12:30 Temperature Pulse Rate 85 82 81 Respiratory Rate 16 16 16 Blood Pressure 94/54 L 98/55 L 98/53 L Pulse Oximetry 100 100 100 09/29/18 12:45 09/29/18 13:00 09/29/18 13:41 Temperature Pulse Rate 81 82 86 Respiratory Rate 16 16 19 Blood Pressure 101/50 L 97/53 L 99/52 L Pulse Oximetry 100 100 99 09/29/18 13:43 09/29/18 13:45 09/29/18 13:49 Temperature Pulse Rate 85 90 82 Respiratory Rate 25 H 29 H 24 Blood Pressure 111/49 L 159/69 H 110/55 L Pulse Oximetry 100 99 99 09/29/18 13:51 09/29/18 13:54 09/29/18 13:58 Temperature Pulse Rate 81 82 83 Respiratory Rate 23 16 16 Blood Pressure 96/45 L 78/38 L 75/41 L Pulse Oximetry 100 100 100 09/29/18 14:00 09/29/18 14:01 09/29/18 14:02 Temperature Pulse Rate 84 84 Respiratory Rate 16 16 Blood Pressure 77/41 L 74/42 L Pulse Oximetry 100 100 100 09/29/18 14:04 09/29/18 14:12 09/29/18 14:15 Temperature Pulse Rate 84 87 87 Respiratory Rate 16 16 16 Blood Pressure 82/47 L 108/54 L 107/53 L Pulse Oximetry 99 100 100 09/29/18 14:30 09/29/18 14:45 09/29/18 15:00 Temperature Pulse Rate 85 85 86 Respiratory Rate 17 16 16 Blood Pressure 104/50 L 105/52 L 108/53 L Pulse Oximetry 98 96 09/29/18 15:15 09/29/18 15:30 09/29/18 15:45 Temperature Pulse Rate 82 82 81 Respiratory Rate 16 16 16 Blood Pressure 96/46 L 92/48 L 86/47 L Pulse Oximetry 100 100 09/29/18 16:00 09/29/18 16:06 09/29/18 16:15 Temperature Pulse Rate 80 80 80 Respiratory Rate 16 16 16 Blood Pressure 87/50 L 95/50 L Pulse Oximetry 100 100 09/29/18 16:30 09/29/18 16:45 09/29/18 17:00 Temperature Pulse Rate 81 82 83 Respiratory Rate 16 16 16 Blood Pressure 96/52 L 102/58 L 101/52 L Pulse Oximetry 09/29/18 17:15 09/29/18 17:30 09/29/18 17:45 Temperature Pulse Rate 83 83 82 Respiratory Rate 16 16 16 Blood Pressure 99/54 L 104/57 L 105/58 L Pulse Oximetry 99 100 09/29/18 18:00 09/29/18 18:15 09/29/18 18:30 Temperature Pulse Rate 82 83 85 Respiratory Rate 17 16 16 Blood Pressure 105/55 L 99/50 L 103/54 L Pulse Oximetry 09/29/18 18:45 09/29/18 19:00 09/29/18 19:15 Temperature Pulse Rate 86 85 88 Respiratory Rate 16 16 16 Blood Pressure 104/57 L 109/55 L 104/72 Pulse Oximetry 09/29/18 19:30 09/29/18 19:45 09/29/18 20:00 Temperature 98.3 F Pulse Rate 91 H 91 H 90 Respiratory Rate 16 16 16 Blood Pressure 104/51 L 108/53 L 103/52 L Pulse Oximetry 99 99 100 09/29/18 20:15 09/29/18 20:25 09/29/18 20:30 Temperature Pulse Rate 90 92 H 93 H Respiratory Rate 17 20 16 Blood Pressure 103/76 106/51 L Pulse Oximetry 100 100 100 09/29/18 20:55 09/29/18 21:00 09/29/18 21:15 Temperature Pulse Rate 101 H 101 H 98 H Respiratory Rate 16 16 16 Blood Pressure 115/55 L 106/55 L 104/51 L Pulse Oximetry 97 97 96 09/29/18 21:30 09/29/18 21:45 09/29/18 22:00 Temperature Pulse Rate 94 H 95 H 92 H Respiratory Rate 16 16 16 Blood Pressure 98/54 L 87/49 L 95/54 L Pulse Oximetry 98 100 100 09/29/18 22:15 09/29/18 22:30 09/29/18 22:45 Temperature Pulse Rate 91 H 95 H 97 H Respiratory Rate 16 16 16 Blood Pressure 99/50 L 96/51 L 98/51 L Pulse Oximetry 100 100 100 09/29/18 23:00 09/29/18 23:15 09/29/18 23:30 Temperature Pulse Rate 92 H 90 92 H Respiratory Rate 16 16 16 Blood Pressure 103/53 L 99/52 L 102/51 L Pulse Oximetry 100 100 100 09/29/18 23:45 09/30/18 00:00 09/30/18 00:15 Temperature Pulse Rate 91 H 92 H 96 H Respiratory Rate 16 18 16 Blood Pressure 98/55 L 97/50 L 92/55 L Pulse Oximetry 100 100 100 09/30/18 00:30 09/30/18 00:45 09/30/18 00:53 Temperature Pulse Rate 94 H 93 H 100 H Respiratory Rate 16 16 16 Blood Pressure 96/55 L 93/55 L Pulse Oximetry 100 100 100 09/30/18 01:00 09/30/18 01:15 09/30/18 01:30 Temperature Pulse Rate 94 H 96 H 97 H Respiratory Rate 16 16 16 Blood Pressure 93/55 L 93/54 L 89/52 L Pulse Oximetry 100 100 100 09/30/18 01:45 09/30/18 02:00 09/30/18 02:15 Temperature Pulse Rate 96 H 98 H 96 H Respiratory Rate 16 16 16 Blood Pressure 92/53 L 97/53 L 97/52 L Pulse Oximetry 100 100 100 09/30/18 02:30 09/30/18 02:45 09/30/18 03:00 Temperature Pulse Rate 97 H 96 H 99 H Respiratory Rate 16 16 16 Blood Pressure 95/55 L 88/64 L 100/50 L Pulse Oximetry 100 98 100 09/30/18 03:15 09/30/18 03:30 09/30/18 03:45 Temperature Pulse Rate 98 H 100 H 100 H Respiratory Rate 16 16 16 Blood Pressure 97/55 L 96/51 L 94/51 L Pulse Oximetry 100 100 100 09/30/18 04:00 09/30/18 04:15 09/30/18 04:30 Temperature Pulse Rate 100 H 102 H 102 H Respiratory Rate 16 16 16 Blood Pressure 96/51 L 98/52 L 105/52 L Pulse Oximetry 100 98 100 09/30/18 04:45 09/30/18 04:48 09/30/18 05:00 Temperature Pulse Rate 101 H 103 H 103 H Respiratory Rate 16 16 16 Blood Pressure 102/52 L 100/51 L Pulse Oximetry 100 100 100 09/30/18 05:15 09/30/18 05:30 09/30/18 05:45 Temperature Pulse Rate 104 H 105 H 105 H Respiratory Rate 16 16 16 Blood Pressure 104/55 L 105/51 L 101/55 L Pulse Oximetry 100 100 100 09/30/18 06:00 09/30/18 06:15 09/30/18 06:30 Temperature Pulse Rate 106 H 109 H 103 H Respiratory Rate 24 16 16 Blood Pressure 96/51 L 91/47 L 91/49 L Pulse Oximetry 95 100 100 09/30/18 08:25 09/30/18 10:23 Temperature Pulse Rate 100 H Respiratory Rate 8 L 18 Blood Pressure Pulse Oximetry 100 96 Intake & Output 09/29/18 09/30/18 09/30/18 18:59 06:59 18:59 Intake Total 350 / 350 811 / 811 250 / 250 Output Total 1100 / 1100 600 / 600 Balance -750 / -750 211 / 211 250 / 250 Weight 58.3 kg Intake: IV 100 / 100 100 / 100 Diprivan 1000 mg/100 ml Inj 1, 100 / 100 100 / 100 000 mg In 100 ml @ 5 MCG/KG/MIN 2.041 mls/hr IV.CONT TITRATE PRN Rx#:[id number] Tube Feeding / Water Bolus Amount 250 / 250 Free Water Amount 250 / 250 250 / 250 250 / 250 Output: Stool 1000 / 1000 200 / 200 Urine Amount (Catheter) 100 / 100 400 / 400 Female External 100 / 100 400 / 400 Other: # Incontinent Voids 2 Date of Last Bowel Movement 09/29/18 09/30/18 Narrative: Alert and awake Trach in place; scant bloody drainage around trach Abd: soft; PEG in place - Urinary Catheter Management Indwelling Temp Sensing Catheter Cath placed during this visit: yes, but has since been removed by the nurse Reason for continuing: Severe pressure ulcer/wound Insertion date: 09/18/18 Insertion time: 18:50 Removal date: 09/23/18 Removal time: 16:00 Female External Cath placed during this visit: no Straight Cath placed during this visit: no Results - Labs 10/05/18 05:17 10/05/18 11:49 Laboratory Results - last 24 hr 09/26/18 09/28/18 09/29/18 05:00 15:30 18:11 WBC RBC Hgb Hct MCV MCH MCHC RDW Plt Count MPV Neut % (Auto) Lymph % (Auto) [place] % (Auto) Eos % (Auto) Baso % (Auto) Neut # (Auto) Lymph # (Auto) [place] # (Auto) Eos # (Auto) Baso # (Auto) WBC Differential Differential Comment Sodium Potassium Chloride Carbon Dioxide Anion Gap BUN Creatinine Estimated GFR POC Glucose 144 H 109 Random Glucose Calcium Phosphorus Magnesium Total Bilirubin AST ALT Alkaline Phosphatase Total Protein Albumin Urine Color Yellow Urine Clarity Hazy H Urine pH 8.0 Ur Specific [place] 1.017 Urine Protein Negative Urine Glucose (UA) Negative Urine Ketones Negative Urine Occult Blood Negative Urine Nitrate Negative Urine Bilirubin Negative Urine Urobilinogen Less than 2 Ur Leukocyte Esterase Negative Urine RBC Less than 1 Urine WBC 7 H Ur Squamous Epith Cells 3 Hyaline Casts 1 Urine Mucus Few H Micro UA Comment Culture indicated Ur Microscopic Review Not Reportable Urine Culture Comments Culture indicated 09/30/18 09/30/18 09/30/18 00:09 04:12 04:12 WBC 11.6 H RBC 3.45 L Hgb 7.9 L Hct 26.5 L MCV 76.8 L MCH 23.0 L MCHC 29.9 L RDW 19.5 H Plt Count 230 MPV 10.1 Neut % (Auto) 80.2 H Lymph % (Auto) 6.2 L [place] % (Auto) 9.8 H Eos % (Auto) 3.0 Baso % (Auto) 0.8 Neut # (Auto) 9.3 H Lymph # (Auto) 0.7 L [place] # (Auto) 1.1 H Eos # (Auto) 0.3 Baso # (Auto) 0.1 WBC Differential . Differential Comment Auto diff final Sodium 142 Potassium 3.8 Chloride 108 H Carbon Dioxide 24.0 Anion Gap 10 BUN 19 H Creatinine 0.76 Estimated GFR Greater than 89 POC Glucose 110 Random Glucose 105 Calcium 8.3 L Phosphorus 3.1 Magnesium 2.6 H Total Bilirubin 0.5 AST 32 ALT 29 Alkaline Phosphatase 92 Total Protein 7.4 Albumin 2.1 L Urine Color Urine Clarity Urine pH Ur Specific [place] Urine Protein Urine Glucose (UA) Urine Ketones Urine Occult Blood Urine Nitrate Urine Bilirubin Urine Urobilinogen Ur Leukocyte Esterase Urine RBC Urine WBC Ur Squamous Epith Cells Hyaline Casts Urine Mucus Micro UA Comment Ur Microscopic Review Urine Culture Comments 09/30/18 06:13 WBC RBC Hgb Hct MCV MCH MCHC RDW Plt Count MPV Neut % (Auto) Lymph % (Auto) [place] % (Auto) Eos % (Auto) Baso % (Auto) Neut # (Auto) Lymph # (Auto) [place] # (Auto) Eos # (Auto) Baso # (Auto) WBC Differential Differential Comment Sodium Potassium Chloride Carbon Dioxide Anion Gap BUN Creatinine Estimated GFR POC Glucose 119 H Random Glucose Calcium Phosphorus Magnesium Total Bilirubin AST ALT Alkaline Phosphatase Total Protein Albumin Urine Color Urine Clarity Urine pH Ur Specific [place] Urine Protein Urine Glucose (UA) Urine Ketones Urine Occult Blood Urine Nitrate Urine Bilirubin Urine Urobilinogen Ur Leukocyte Esterase Urine RBC Urine WBC Ur Squamous Epith Cells Hyaline Casts Urine Mucus Micro UA Comment Ur Microscopic Review Urine Culture Comments - Imaging Imaging: ITS Impressions Head CT 09/18/18 18:40 CONCLUSION: 1. Stable appearance of the brain. Marked ventriculomegaly and white matter disease. . Chest CTA 09/18/18 19:26 CONCLUSION: 1. There is no evidence for pulmonary embolism. 2. Severe emphysema. 3. There is a large soft tissue mass in the right lower lobe suspicious for malignancy until proven otherwise. Venous Doppler Study 09/21/18 00:00 CONCLUSION: 1. There is occlusive thrombus within the right cephalic and brachial veins. Chest X-Ray 09/29/18 14:08 CONCLUSION: 1. Interval tracheostomy tube placement. 2. Unchanged right lower lobe consolidation and bibasilar interstitial prominence. Assessment and Plan - Plan 68 year old female with prior stoke, hemiplegia; now with VDRF -POD1 perc trach -Vent per CCM -Continue routine trach care -Okay to restart Lovenox -GS will sign off; please call with any ??s - Attending Attestation The exam, history, and the medical decision-making described in the above note were completed with the assistance of the mid-level provider. I reviewed and agree with the findings presented. I attest that I had a [id number] encounter with the patient on the same day, and personally performed and documented my assessment and findings in the medical record. Status post percutaneous tracheostomy, tracheostomy functioning well, will sign off
--- NOTE | 2018-09-30 18:03 | P.PNPL ---
Subjective Interval history: 68 YOAA female who was with Hospice svc, now rescended Daughter at BS, she dw her step father and do not want any lung bx Sedated No fever On Vent, did't tolerate CPA Daughter at BS. Physical Exam Vital signs: Vital Signs 09/29/18 18:15 09/29/18 18:30 09/29/18 18:45 Temperature Pulse Rate 83 85 86 Respiratory Rate 16 16 16 Blood Pressure 99/50 L 103/54 L 104/57 L Pulse Oximetry 09/29/18 19:00 09/29/18 19:15 09/29/18 19:30 Temperature Pulse Rate 85 88 91 H Respiratory Rate 16 16 16 Blood Pressure 109/55 L 104/72 104/51 L Pulse Oximetry 99 09/29/18 19:45 09/29/18 20:00 09/29/18 20:15 Temperature 98.3 F Pulse Rate 91 H 90 90 Respiratory Rate 16 16 17 Blood Pressure 108/53 L 103/52 L 103/76 Pulse Oximetry 99 100 100 09/29/18 20:25 09/29/18 20:30 09/29/18 20:55 Temperature Pulse Rate 92 H 93 H 101 H Respiratory Rate 20 16 16 Blood Pressure 106/51 L 115/55 L Pulse Oximetry 100 100 97 09/29/18 21:00 09/29/18 21:15 09/29/18 21:30 Temperature Pulse Rate 101 H 98 H 94 H Respiratory Rate 16 16 16 Blood Pressure 106/55 L 104/51 L 98/54 L Pulse Oximetry 97 96 98 09/29/18 21:45 09/29/18 22:00 09/29/18 22:15 Temperature Pulse Rate 95 H 92 H 91 H Respiratory Rate 16 16 16 Blood Pressure 87/49 L 95/54 L 99/50 L Pulse Oximetry 100 100 100 09/29/18 22:30 09/29/18 22:45 09/29/18 23:00 Temperature Pulse Rate 95 H 97 H 92 H Respiratory Rate 16 16 16 Blood Pressure 96/51 L 98/51 L 103/53 L Pulse Oximetry 100 100 100 09/29/18 23:15 09/29/18 23:30 09/29/18 23:45 Temperature Pulse Rate 90 92 H 91 H Respiratory Rate 16 16 16 Blood Pressure 99/52 L 102/51 L 98/55 L Pulse Oximetry 100 100 100 09/30/18 00:00 09/30/18 00:15 09/30/18 00:30 Temperature Pulse Rate 92 H 96 H 94 H Respiratory Rate 18 16 16 Blood Pressure 97/50 L 92/55 L 96/55 L Pulse Oximetry 100 100 100 09/30/18 00:45 09/30/18 00:53 09/30/18 01:00 Temperature Pulse Rate 93 H 100 H 94 H Respiratory Rate 16 16 16 Blood Pressure 93/55 L 93/55 L Pulse Oximetry 100 100 100 09/30/18 01:15 09/30/18 01:30 09/30/18 01:45 Temperature Pulse Rate 96 H 97 H 96 H Respiratory Rate 16 16 16 Blood Pressure 93/54 L 89/52 L 92/53 L Pulse Oximetry 100 100 100 09/30/18 02:00 09/30/18 02:15 09/30/18 02:30 Temperature Pulse Rate 98 H 96 H 97 H Respiratory Rate 16 16 16 Blood Pressure 97/53 L 97/52 L 95/55 L Pulse Oximetry 100 100 100 09/30/18 02:45 09/30/18 03:00 09/30/18 03:15 Temperature Pulse Rate 96 H 99 H 98 H Respiratory Rate 16 16 16 Blood Pressure 88/64 L 100/50 L 97/55 L Pulse Oximetry 98 100 100 09/30/18 03:30 09/30/18 03:45 09/30/18 04:00 Temperature Pulse Rate 100 H 100 H 100 H Respiratory Rate 16 16 16 Blood Pressure 96/51 L 94/51 L 96/51 L Pulse Oximetry 100 100 100 09/30/18 04:15 09/30/18 04:30 09/30/18 04:45 Temperature Pulse Rate 102 H 102 H 101 H Respiratory Rate 16 16 16 Blood Pressure 98/52 L 105/52 L 102/52 L Pulse Oximetry 98 100 100 09/30/18 04:48 09/30/18 05:00 09/30/18 05:15 Temperature Pulse Rate 103 H 103 H 104 H Respiratory Rate 16 16 16 Blood Pressure 100/51 L 104/55 L Pulse Oximetry 100 100 100 09/30/18 05:30 09/30/18 05:45 09/30/18 06:00 Temperature Pulse Rate 105 H 105 H 106 H Respiratory Rate 16 16 24 Blood Pressure 105/51 L 101/55 L 96/51 L Pulse Oximetry 100 100 95 09/30/18 06:15 09/30/18 06:30 09/30/18 07:00 Temperature Pulse Rate 109 H 103 H 97 H Respiratory Rate 16 16 16 Blood Pressure 91/47 L 91/49 L 91/54 L Pulse Oximetry 100 100 100 09/30/18 07:30 09/30/18 08:00 09/30/18 08:25 Temperature 99.5 F Pulse Rate 100 H 101 H 100 H Respiratory Rate 16 16 8 L Blood Pressure 96/53 L 90/52 L Pulse Oximetry 99 99 100 09/30/18 08:30 09/30/18 09:00 09/30/18 09:30 Temperature Pulse Rate 98 H 102 H 105 H Respiratory Rate 14 19 30 H Blood Pressure 95/54 L 91/52 L 82/49 L Pulse Oximetry 99 100 96 09/30/18 10:00 09/30/18 10:23 09/30/18 10:30 Temperature Pulse Rate 109 H 94 H Respiratory Rate 24 18 19 Blood Pressure 94/55 L 92/53 L Pulse Oximetry 97 96 99 09/30/18 11:00 09/30/18 11:17 09/30/18 11:26 Temperature Pulse Rate 78 81 Respiratory Rate 20 26 H Blood Pressure 88/53 L Pulse Oximetry 96 95 09/30/18 11:30 09/30/18 12:00 09/30/18 12:30 Temperature 98 F Pulse Rate 80 83 89 Respiratory Rate 16 16 16 Blood Pressure 84/48 L 87/52 L 95/53 L Pulse Oximetry 95 100 98 09/30/18 13:00 09/30/18 13:30 09/30/18 13:34 Temperature Pulse Rate 92 H 96 H Respiratory Rate 16 16 16 Blood Pressure 93/52 L 87/52 L Pulse Oximetry 100 96 100 09/30/18 16:52 09/30/18 17:56 Temperature Pulse Rate 100 H Respiratory Rate 16 18 Blood Pressure Pulse Oximetry 98 Intake & Output 09/29/18 09/30/18 09/30/18 18:59 06:59 18:59 Intake Total 350 / 350 811 / 811 250 / 250 Output Total 1100 / 1100 600 / 600 Balance -750 / -750 211 / 211 250 / 250 Weight 58.3 kg Intake: IV 100 / 100 100 / 100 Diprivan 1000 mg/100 ml Inj 1, 100 / 100 100 / 100 000 mg In 100 ml @ 5 MCG/KG/MIN 2.041 mls/hr IV.CONT TITRATE PRN Rx#:[id number] Tube Feeding 211 / 211 Water Bolus Amount 250 / 250 Free Water Amount 250 / 250 250 / 250 250 / 250 Output: Stool 1000 / 1000 200 / 200 Urine Amount (Catheter) 100 / 100 400 / 400 Female External 100 / 100 400 / 400 Other: # Incontinent Voids 2 Date of Last Bowel Movement 09/29/18 09/30/18 09/30/18 GENERAL: Elderly AA female, on Vent SKIN: Warm and dry. HEAD: Normocephalic. EYES: No scleral icterus. No injection or drainage. NECK: Supple, trachea midline. No JVD or lymphadenopathy. trach CARDIOVASCULAR: Regular rate and rhythm without murmurs, gallops, or rubs. RESPIRATORY: Breath sounds equal bilaterally. No accessory muscle use. GASTROINTESTINAL: Abdomen soft, non-tender, nondistended. MUSCULOSKELETAL: No cyanosis, or edema. Left AKA BACK: Nontender without obvious deformity. No CVA tenderness. - Urinary Catheter Management Indwelling Temp Sensing Catheter Cath placed during this visit: yes, but has since been removed by the nurse Reason for continuing: Severe pressure ulcer/wound Insertion date: 09/18/18 Insertion time: 18:50 Removal date: 09/23/18 Removal time: 16:00 Female External Cath placed during this visit: no Assessment and Plan - Plan IMPRESSION: VDRF large Rt lung mass COPD HTN H/O CVA PLAN: Cont vent support Aerosol nebs IV Solumedrol Cont Abx Trach care. DW daughter at BS
[2018-09-30] MEDS: dilTIAZem 30 MG Tablet PO SCH ×2 (19:30→22:02)
[2018-10-01] MEDS: Insulin NovoLIN Regular Correctional Sugar Inj SQ SCH ×4 (01:42→20:06)
[2018-10-01] MEDS: Oral Hygiene Kit OROPHARYNG SCH ×4 (01:42→16:41)
[2018-10-01] MEDS: dilTIAZem 30 MG Tablet PO SCH ×5 (03:42→21:24)
[2018-10-01 05:07] LABS: Baso # (Auto) 0.1 th/mm3 (0.0-0.2); Baso % (Auto) 0.8 % (0.0-2.0); Eos # (Auto) 0.4 th/mm3 (0.0-0.4); Eos % (Auto) 3.4 % (0.0-4.0); Hematocrit 23.9 % (35.0-46.0); Lymph # (Auto) 0.8 th/mm3 (1.0-4.8); Lymph % (Auto) 6.5 % (9.0-44.0); Mean Corpuscular Hemoglobin 21.7 pg (27.0-34.0); Mean Platelet Volume 9.8 fL (7.0-11.0); Mono # (Auto) 0.9 th/mm3 (0.0-0.9); Mono % (Auto) 7.5 % (0.0-8.0); Neut # (Auto) 9.6 th/mm3 (1.8-7.7); Neut % (Auto) 81.8 % (16.0-70.0); Platelet Count 242 th/mm3 (150-450); Red Cell Distribution Width 19.5 % (11.6-17.2); White Blood Count 11.7 th/mm3 (4.0-11.0)
[2018-10-01 05:16] LABS: Albumin 2.3 g/dL (3.4-5.0); Anion Gap 7 meq/L (5-15); Aspartate Aminotransferase 18 U/L (15-37); Blood Urea Nitrogen 21 mg/dL (7-18); Calcium 8.6 mg/dL (8.5-10.1); Carbon Dioxide 25.8 meq/L (21.0-32.0); Chloride 109 meq/L (98-107); Glucose,Random 111 mg/dL (74-106); Magnesium 2.7 mg/dL (1.5-2.5); Potassium 3.9 meq/L (3.5-5.1); Sodium 142 meq/L (136-145)
[2018-10-01 05:18] LABS: Alanine Aminotransferase 25 U/L (10-53); Alkaline Phosphatase 103 U/L (45-117); Glomerular Filtration Rate 81 mL/min (>89); Phosphorus 3.2 mg/dL (2.5-4.9); Total Protein 7.3 g/dL (6.4-8.2)
[2018-10-01 05:20] LABS: Mean Corpuscular HGB Conc 28.2 % (32.0-36.0)
[2018-10-01 05:22] LABS: Hemoglobin 6.7 gm/dL (11.6-15.3)
--- NOTE | 2018-10-01 07:11 | P.PNCC ---
Subjective Subjective Remarks/Hospital Course: 09/18: 68-year-old female past medical history of stroke, left BKA, who was on home hospice until just prior to arrival, presents for an evaluation of fever and altered mental status. According to EMS the patient had not required oxygen until beginning of this week when she had gradual increased demand of her oxygen. End-tidal CO2 prior to arrival was 6. Initial room nasal cannula saturation was 91, she was placed on nonrebreather position of comfort and transfer to emergency department. EMS related that the had elected to revoke the patient's DNR and hospice care prior to transferring her to the hospital. The patient apparently is normally a GCS of 14, apparently she does take some thickened food p.o. department the patient was severely altered with GCS of 6 on arrival [id number] and was intubated by ED attending for an airway protection. 09/19: Remains sedated, orally intubated on mechanical ventilation. CT chest showed right lower lobe lung mass suspicious for malignancy. Patient has a PEG tube following previous stroke. 09/20: Remains sedated, orally intubated on mechanical ventilation. Started on tube feeds. 09/21: Remains sedated, orally intubated on mechanical ventilation. Tolerating tube feeds. Right approximately swelling noted. 09/22 Is not tolerating CPAP trial when decrease PS below 18. Daughter at bedside, says will be here later. Says they don't think they want to proceed with lung biopsy at this time, but on the other hand she discusses the possibility of re-do trach. She says they are not sure how to proceed. I suggested we meet together. Daughter states she has been bedridden since stroke about 4 years ago. Has been in [facility]. PEG due to dysphagia, does not eat. Speaks a little but daughter states she has declined significantly over the last 2 weeks. 09/23 No significant change. Patient does not tolerate CPAP. Family is very clear that they do not wish to pursue biopsy or diagnosis of suspected lung cancer. At this time, they wish to continue supportive care with vent and FULL CODE. 09/24 No change. Does not tolerate CPAP. Will diurese for positive fluid balance. 09/25 Now on CPAP 20/5 and not tolerating wean. Continue attempts at diuresis to address positive fluid balance since admission 09/26: Remains sedated, orally intubated on mechanical ventilation. Hold CPAP trials yesterday 09/27 Patient is sedated with Diprivan and intubated. Tolerating tube feeds. Afebrile. 09/28 Patient remains intubated and sedated. T;100.8 09/29 Has not made any progress towards weaning. Family offered comfort measures however they expressed desire to proceed with trach Subjective: 09/30 status post bedside tracheostomy yesterday by Dr. Gavin. Discontinued propofol drip. On CPAP 14/5 for 2 hours today. BP is low, will need to hold metoprolol and titrate back on cardizem (nurses held some doses yesterday too). Positive fluid balance but not able to diurese today due to low BP. Awaiting bed at [facility]. 10/01 Patient remains on ventilator via trach. On no sedation. Hgb 6.7 this morning and T: 100.4 at midnight. Tachycardic. Objective Vital Signs / I&O: Vital Signs 09/30/18 07:30 09/30/18 08:00 09/30/18 08:25 Temperature 99.5 F Pulse Rate 100 H 101 H 100 H Respiratory Rate 16 16 8 L Blood Pressure 96/53 L 90/52 L Pulse Oximetry 99 99 100 09/30/18 08:30 09/30/18 09:00 09/30/18 09:30 Temperature Pulse Rate 98 H 102 H 105 H Respiratory Rate 14 19 30 H Blood Pressure 95/54 L 91/52 L 82/49 L Pulse Oximetry 99 100 96 09/30/18 10:00 09/30/18 10:23 09/30/18 10:30 Temperature Pulse Rate 109 H 94 H Respiratory Rate 24 18 19 Blood Pressure 94/55 L 92/53 L Pulse Oximetry 97 96 99 09/30/18 11:00 09/30/18 11:17 09/30/18 11:26 Temperature Pulse Rate 78 81 Respiratory Rate 20 26 H Blood Pressure 88/53 L Pulse Oximetry 96 95 09/30/18 11:30 09/30/18 12:00 09/30/18 12:30 Temperature 98 F Pulse Rate 80 83 89 Respiratory Rate 16 16 16 Blood Pressure 84/48 L 87/52 L 95/53 L Pulse Oximetry 95 100 98 09/30/18 13:00 09/30/18 13:30 09/30/18 13:34 Temperature Pulse Rate 92 H 96 H Respiratory Rate 16 16 16 Blood Pressure 93/52 L 87/52 L Pulse Oximetry 100 96 100 09/30/18 14:00 09/30/18 14:06 09/30/18 14:30 Temperature Pulse Rate 94 H 94 H 97 H Respiratory Rate 14 16 16 Blood Pressure 76/45 L 76/45 L 79/48 L Pulse Oximetry 99 98 97 09/30/18 15:00 09/30/18 15:30 09/30/18 16:00 Temperature Pulse Rate 96 H 93 H 97 H Respiratory Rate 16 16 16 Blood Pressure 88/53 L 84/57 L 84/49 L Pulse Oximetry 96 98 98 09/30/18 16:30 09/30/18 16:52 09/30/18 17:00 Temperature Pulse Rate 100 H 100 H 101 H Respiratory Rate 16 16 16 Blood Pressure 86/49 L 93/53 L Pulse Oximetry 98 97 09/30/18 17:30 09/30/18 17:56 09/30/18 18:00 Temperature Pulse Rate 103 H 105 H Respiratory Rate 16 18 16 Blood Pressure 91/53 L 95/53 L Pulse Oximetry 100 98 97 09/30/18 18:30 09/30/18 19:00 09/30/18 19:23 Temperature Pulse Rate 106 H 106 H 110 H Respiratory Rate 16 23 19 Blood Pressure 92/53 L 84/51 L 96/53 L Pulse Oximetry 100 99 100 09/30/18 20:00 09/30/18 20:18 09/30/18 22:00 Temperature 100.3 F H Pulse Rate 108 H 101 H 110 H Respiratory Rate 16 16 Blood Pressure 95/54 L Pulse Oximetry 100 100 09/30/18 23:43 10/01/18 00:00 10/01/18 01:20 Temperature 100.4 F H Pulse Rate 122 H 124 H Respiratory Rate 18 16 21 Blood Pressure 112/58 L Pulse Oximetry 100 96 10/01/18 02:00 10/01/18 04:00 10/01/18 04:23 Temperature 100 F H Pulse Rate 121 H 124 H 127 H Respiratory Rate 16 23 Blood Pressure 100/56 L Pulse Oximetry 100 98 10/01/18 06:00 Temperature Pulse Rate 130 H Respiratory Rate Blood Pressure Pulse Oximetry Intake & Output 09/30/18 10/01/18 10/01/18 18:59 06:59 18:59 Intake Total 959 / 959 1063 / 1063 Output Total 150 / 150 500 / 500 Balance 809 / 809 563 / 563 Weight 60 kg Intake: IV 70 / 70 Diprivan 1000 mg/100 ml Inj 1, 70 / 70 000 mg In 100 ml @ 5 MCG/KG/MIN 2.041 mls/hr IV.CONT TITRATE PRN Rx#:[id number] Oral 0 / 0 Tube Feeding 639 / 639 503 / 503 Tube Irrigant 60 / 60 Water Bolus Amount 250 / 250 Free Water Amount 250 / 250 250 / 250 Output: Stool 100 / 100 100 / 100 Urine Amount (Catheter) 50 / 50 400 / 400 Female External 50 / 50 400 / 400 Other: Date of Last Bowel Movement 09/30/18 09/30/18 Result Diagrams: 10/01/18 04:15 10/01/18 04:15 Other Results: Laboratory Results - last 12 hr 10/01/18 10/01/18 10/01/18 01:37 04:15 04:15 WBC 11.7 H RBC 3.10 L Hgb 6.7 L* Hct 23.9 L MCV 77.0 L MCH 21.7 L MCHC 28.2 L RDW 19.5 H Plt Count 242 MPV 9.8 Prelim Diff (Auto) Slide review pending Neut % (Auto) 81.8 H Lymph % (Auto) 6.5 L Stevens % (Auto) 7.5 Eos % (Auto) 3.4 Baso % (Auto) 0.8 Neut # (Auto) 9.6 H Lymph # (Auto) 0.8 L Stevens # (Auto) 0.9 Eos # (Auto) 0.4 Baso # (Auto) 0.1 Differential Comment . Sodium 142 Potassium 3.9 Chloride 109 H Carbon Dioxide 25.8 Anion Gap 7 BUN 21 H Creatinine 0.84 Estimated GFR 81 L POC Glucose 152 H Random Glucose 111 H Calcium 8.6 Phosphorus 3.2 Magnesium 2.7 H Total Bilirubin 0.3 AST 18 ALT 25 Alkaline Phosphatase 103 Total Protein 7.3 Albumin 2.3 L Imaging: Head CT 09/18/18 18:40 CONCLUSION: 1. Stable appearance of the brain. Marked ventriculomegaly and white matter disease. . Chest CTA 09/18/18 19:26 CONCLUSION: 1. There is no evidence for pulmonary embolism. 2. Severe emphysema. 3. There is a large soft tissue mass in the right lower lobe suspicious for malignancy until proven otherwise. Venous Doppler Study 09/21/18 00:00 CONCLUSION: 1. There is occlusive thrombus within the right cephalic and brachial veins. Chest X-Ray 09/29/18 14:08 CONCLUSION: 1. Interval tracheostomy tube placement. 2. Unchanged right lower lobe consolidation and bibasilar interstitial prominence. Objective Remarks: GENERAL: Well-nourished, well-developed patient. SKIN: Warm and dry. HEAD: Atraumatic. Normocephalic. EYES: Pupils equal and round. No scleral icterus. No injection or drainage. ENT: No nasal bleeding or discharge. Mucous membranes pink and moist. NECK: Tracheostomy in place, slight pink tinge to secretions, no active bleeding. CARDIOVASCULAR: Tachycardic, No murmurs rubs or gallops. RESPIRATORY: Orotracheally intubated on mechanical ventilation. B/L equal air entry GASTROINTESTINAL: Abdomen soft, non-tender, nondistended. PEG in place, tube feeds running. MUSCULOSKELETAL: Extremities without clubbing, cyanosis, or edema. s/p L AKA. NEUROLOGICAL: Awakens, looks around. Blinks and squeezes hand to command Assessment and Plan - Assessment and Plan Plan: NEURO: History of stroke Off sedation. Monitor neuro status RESP: Acute respiratory failure on mechanical ventilation Emphysema Lung mass History of prior trach after stroke, has been subsequently decannulated Per Dr. De Jesus. not wishing to pursue CT-guided biopsy. Continue with vent support Daily CPAP trials. Vent bundle/nebs. Percutaneous tracheostomy performed at bedside 09/29. Pulm toilet, trach care CV: HTN Monitor BP//heart rate keep MAP>65mmHg. On Cardizem to 30mg q6 with hold orders. GI: PEG in place. Glucerna 1.5 @60ml/hr FEN/RENAL: Acute hypernatremia Hypokalemia resolved Monitor renal function, I/O's, electrolytes replacement per protocol. Free water 250ml Q12 , ID: HCAP UTI Urine culture from 09/18 with providentia and Proteus. Urine and sputum cultures negative Completed 8 day course of zosyn. Monitor for signs of infections ( Fever, WBC) sputum cx 09/28: No growth HEME: R brachial DVT Anemia Lovenox 60 mg subcu every 12 hours. Transfuse 2u PRBC GI eval might need EGD/Colonoscopy ENDO: Diabetes mellitus Insulin sliding scale PROPH: SCD/Lovenox for DVT prophylaxis. Famotidine for stress ulcer prophylaxis. Check Doppler US UE b/l 09/21 Doppler US RUE: Occlusive thrombus cephalic and brachial veins ACCESS: PIV x2. Discussed with case management: awaiting bed availability at [facility]. Full code Level 2 follow-up
[2018-10-01 07:55] LABS: Ovalocytes 1+; Platelet Estimate Normal (Normal)
[2018-10-01] MEDS: Chlorhexidine 0.12% Oral Kit 15 ML UDC OROPHARYNG SCH ×2 (09:48→20:00)
[2018-10-01] MEDS: Senna/Docusate Sodium 8.6/50 MG Tablet PO SCH ×2 (09:49→21:24)
[2018-10-01] MEDS: Enoxaparin Inj 60 MG/0.6 ML Syringe SQ SCH ×2 (09:49→21:24)
[2018-10-01] MEDS: Famotidine PF Inj 20 MG/2 ML Vial IV.PUSH SCH (09:49)
[2018-10-01] MEDS: Acetaminophen 325 MG Tablet PO PRN (10:15)
--- NOTE | 2018-10-01 11:44 | P.CONGI ---
History of Present Illness Consult date: 10/01/18 Consult reason: Worsening anemia requiring blood transfusion Chief complaint: Sepsis, Hypoxia History of Present Illness: This patient is a 68-year-old female with past medical history significant for CVA, left AKA, acute respiratory failure, diabetes, dysphagia, hypertension , hemiparesis, hemiplegia and hypoxia. Surgical history significant for PEG tube placement, tracheostomy and left above-knee amputation. Patient presented to [facility] emergency room via EMS for reported hypoxemia. Of note, patient was on home hospice prior to arrival. Upon arrival, patient was intubated by ER attending for protection of airway. Our service has been consulted to evaluate patient for worsening anemia requiring blood transfusion. Patient is currently being cared for in the critical care setting post tracheostomy placement, patient mechanically ventilated. Temperature 101.5 this a.m. sinus tach on monitoring and evaluation advisor. Patient presently having loose watery stools, dignity shield applied with noted liquid brown stool present. ICU nurse reports no obvious noted bleeding. Hemoglobin 6.7 hematocrit 23.9. Patient currently receiving 1st of 2 units of packed RBCs for transfusion. Upon exam, estimated 5 x 5 cm hematoma to the left lower quadrant of abdomen. Left upper extremity phlebitis noted. Patient currently receiving Lovenox 60 mg subcutaneously every 12 hours. <Yael Haines - Last Filed: 10/01/18 17:13> Review of Systems unobtainable due to endotracheal tube <Yael Haines - Last Filed: 10/01/18 17:13> PMFSH - History History Provided By: Medical Record - Medical History Medical History: Medical History (Last Reviewed 09/28/18 @ 14:03 by REBECA Bustos) Acute respiratory failure CVA (cerebral vascular accident) Diabetes Dysphagia HTN (hypertension) Hemiparesis Hemiplegia Hypoxia - Surgical History Surgical History: Surgical History (Last Updated 09/30/18 @ 11:34 by REBECA Bustos) H/O tracheostomy History of left above knee amputation S/P percutaneous endoscopic gastrostomy (PEG) tube placement - Family History Family History: Family History (Last Updated 09/20/18 @ 16:04 by Jenny Russell) Sister Diabetes Sister Hypertension - Tobacco History Second Hand Smoke Exposure: No Tobacco Use In Past 30 Days: No Smoking Status: Former smoker (Quit many years ago, daughter reports pt smoked when daughter was a child.) - Alcohol History How Often Do You Have a Drink Containing Alcohol: Never - Substance Use History Substance History: No History of Abuse, Unable to Obtain - Travel History Recent Travel in the [place] Within the Last 8 Weeks: No Recent Travel Out of the Country Within the Last 8 Weeks: No - Immunization History Tetanus Immunization: Unsure <Yael Haines - Last Filed: 10/01/18 17:13> - Medical History Medical History: Medical History (Last Reviewed 09/28/18 @ 14:03 by REBECA Bustos) Acute respiratory failure CVA (cerebral vascular accident) Diabetes Dysphagia HTN (hypertension) Hemiparesis Hemiplegia Hypoxia - Surgical History Surgical History: Surgical History (Last Updated 09/30/18 @ 11:34 by REBECA Bustos) H/O tracheostomy History of left above knee amputation S/P percutaneous endoscopic gastrostomy (PEG) tube placement - Family History Family History: Family History (Last Updated 09/20/18 @ 16:04 by Jenny Russell) Sister Diabetes Sister Hypertension <Jaron Cooper - Last Filed: 10/02/18 12:09> Medications and Allergies Active Medications: Active Medications Acetaminophen (Tylenol) 650 mg PO Q6H PRN PRN Reason: PAIN 1-2 AND/OR FEVER >101F Last Admin: 10/01/18 10:15 Dose: 650 mg Hydrocodone Bitart/Acetaminophen ([place] 5/325) 1 tab PO Q4H PRN PRN Reason: pain 3-10 Al Hydroxide/Mg Hydroxide (Milk Of Magnesia Liq) 30 ml PO Q12H PRN PRN Reason: Mild Constipation Albuterol (Duoneb Neb (Prn)) 1 ampul NEB Q2HR NEB PRN PRN Reason: WHEEZING Last Admin: 09/25/18 20:40 Dose: 1 ampul Albuterol (Duoneb Neb (Eufemia)) 1 ampul NEB Q4HR NEB [facility] Last Admin: 10/01/18 11:07 Dose: 1 ampul Bisacodyl (Dulcolax Supp) 10 mg RECTAL DAILY PRN PRN Reason: SEVERE CONSITIPATION Chlorhexidine Gluconate (Peridex 0.12% Oral Kit) 15 ml OROPHARYNG BID@0800, 2000 [facility] Last Admin: 10/01/18 09:48 Dose: 15 ml Clonidine HCl (Catapres) 0.1 mg PO Q6H PRN PRN Reason: SBP > 160 Last Admin: 09/22/18 06:02 Dose: 0.1 mg Dextrose (D50w Vial) 50 ml IV.PUSH UNSCH PRN PRN Reason: PER HYPOGLYCEMIA PROTOCOL Diltiazem HCl (Cardizem) 30 mg PO Q6H [facility] Last Admin: 10/01/18 11:04 Dose: Not Given Enoxaparin Sodium (Lovenox Inj) 60 mg SQ Q12HR [facility] Last Admin: 10/01/18 09:49 Dose: 60 mg Famotidine (Pepcid Pf Inj) 20 mg IV.PUSH Q12HR [facility] Last Admin: 10/01/18 09:49 Dose: 20 mg Glucagon (Glucagon Inj) 1 mg OTHER PRN PRN PRN Reason: for Hypoglycemia Protocol Magnesium Sulfate 4 gm/ Sodium (Chloride) 100 mls @ 50 mls/hr IV.SIG UNSCH PRN PRN Reason: For Magnesium 0.9 - 1.1 mg/dL Magnesium Sulfate 2 gm/ Sodium (Chloride) 100 mls @ 50 mls/hr IV.SIG UNSCH PRN PRN Reason: For Magnesium 1.2 - 1.6 mg/dL Potassium Chloride (Kcl 40 Meq Premix Inj) 40 meq in 100 mls @ 25 mls/hr IV.SIG Q2H PRN PRN Reason: For Potassium 2.8 - 3.2 mEq/L Potassium Chloride (Kcl 20 Meq Premix Inj) 20 meq in 100 mls @ 50 mls/hr IV.SIG Q2H PRN PRN Reason: For Potassium 3.3 - 3.5 mEq/L Last Infusion: 09/19/18 12:20 Dose: Infused Potassium Chloride (Kcl 40 Meq Premix Inj) 40 meq in 100 mls @ 25 mls/hr IV.SIG UNSCH PRN PRN Reason: For Potassium 3.3 - 3.5 mEq/L Potassium Phosphate 30 mmol/ (Sodium Chloride) 260 mls @ 42 mls/hr IV.SIG UNSCH PRN PRN Reason: SEE LABEL COMMENTS Sodium Phosphate 30 mmol/ (Sodium Chloride) 260 mls @ 42 mls/hr IV.SIG UNSCH PRN PRN Reason: For Phosphorus < 2.5 mg/dL Potassium Chloride (Kcl 20 Meq Premix Inj) 20 meq in 100 mls @ 50 mls/hr IV.SIG Q2H PRN PRN Reason: For Potassium 2.8 - 3.2 mEq/L Last Infusion: 09/21/18 13:07 Dose: Infused Insulin Human Regular (Novolin R Correctional Sugar Inj) 0 units SQ Q6HR [facility]; Protocol Last Admin: 10/01/18 06:20 Dose: Not Given Labetalol HCl (Trandate Inj) 10 mg IV.PUSH Q4H PRN PRN Reason: SBP>160, DBP>90 Lactulose (Lactulose Liq) 30 ml PO DAILY PRN PRN Reason: SEVERE CONSITIPATION Magnesium Oxide (Mag-Ox) 800 mg PO UNSCH PRN PRN Reason: For Magnesium 1.2 - 1.6 mg/dL Metoprolol Tartrate (Lopressor) 100 mg G-TUBE BID [facility] Last Admin: 09/30/18 09:53 Dose: 100 mg Midazolam HCl (Versed Inj) 2 mg IV.PUSH Q15M PRN PRN Reason: sedation Miscellaneous Medication () 1 each OROPHARYNG 0000,0400,1200,1600 [facility] Last Admin: 10/01/18 03:42 Dose: 1 each Morphine Sulfate (Morphine Inj) 2 mg IV.PUSH Q2H PRN PRN Reason: PAIN SCALE 6 TO 10 Ondansetron HCl (Zofran Inj) 4 mg IV.PUSH Q6H PRN PRN Reason: NAUSEA OR VOMITING Potassium Chloride (Kcl Liq) 40 meq PO UNSCH PRN PRN Reason: Potassium level 3.3-3.5 mEq/L Last Admin: 09/26/18 09:48 Dose: 40 meq Potassium Chloride (Kcl Liq) 40 meq PO UNSCH PRN PRN Reason: Potassium level 3.3-3.5 mEq/L Potassium Phosphate (K-Phos Original) 2,000 mg PO Q4H PRN PRN Reason: Phosphorus Less Than 2.5 mg/dL Potassium Phosphate (K-Phos Original) 2,000 mg PO UNSCH PRN PRN Reason: SEE LABEL COMMENTS Last Admin: 09/20/18 16:03 Dose: 2,000 mg Senna/Docusate Sodium (Rosana-Colace) 1 tab PO BID [facility] Last Admin: 10/01/18 09:49 Dose: Not Given Sennosides (Senokot) 17.2 mg PO Q12H PRN PRN Reason: Moderate Constipation Sodium Chloride (Ns Flush) 2 ml IV.FLUSH BID [facility] Last Admin: 10/01/18 09:49 Dose: 2 ml Sodium Chloride (Ns Flush) 2 ml IV.FLUSH PRN PRN PRN Reason: FLUSH AFTER USING IV ACCESS Sterile Water (Free Water) 250 ml G-TUBE Q12H [facility] Last Admin: 10/01/18 09:49 Dose: 250 ml <Yael Haines - Last Filed: 10/01/18 17:13> Active Medications: Active Medications Acetaminophen (Tylenol) 650 mg PO Q6H PRN PRN Reason: PAIN 1-2 AND/OR FEVER >101F Last Admin: 10/02/18 06:00 Dose: 650 mg Hydrocodone Bitart/Acetaminophen ([place] 5/325) 1 tab PO Q4H PRN PRN Reason: pain 3-10 Al Hydroxide/Mg Hydroxide (Milk Of Magnesia Liq) 30 ml PO Q12H PRN PRN Reason: Mild Constipation Albuterol (Duoneb Neb (Prn)) 1 ampul NEB Q2HR NEB PRN PRN Reason: WHEEZING Last Admin: 09/25/18 20:40 Dose: 1 ampul Albuterol (Duoneb Neb (Eufemia)) 1 ampul NEB Q4HR NEB [facility] Last Admin: 10/02/18 11:33 Dose: 1 ampul Bisacodyl (Dulcolax Supp) 10 mg RECTAL DAILY PRN PRN Reason: SEVERE CONSITIPATION Chlorhexidine Gluconate (Peridex 0.12% Oral Kit) 15 ml OROPHARYNG BID@0800, 2000 [facility] Last Admin: 10/02/18 08:13 Dose: 15 ml Clonidine HCl (Catapres) 0.1 mg PO Q6H PRN PRN Reason: SBP > 160 Last Admin: 09/22/18 06:02 Dose: 0.1 mg Dextrose (D50w Vial) 50 ml IV.PUSH UNSCH PRN PRN Reason: PER HYPOGLYCEMIA PROTOCOL Diltiazem HCl (Cardizem) 30 mg PO Q6H [facility] Last Admin: 10/02/18 10:06 Dose: 30 mg Enoxaparin Sodium (Lovenox Inj) 60 mg SQ Q12HR [facility] Last Admin: 10/02/18 08:12 Dose: 60 mg Glucagon (Glucagon Inj) 1 mg OTHER PRN PRN PRN Reason: for Hypoglycemia Protocol Magnesium Sulfate 4 gm/ Sodium (Chloride) 100 mls @ 50 mls/hr IV.SIG UNSCH PRN PRN Reason: For Magnesium 0.9 - 1.1 mg/dL Magnesium Sulfate 2 gm/ Sodium (Chloride) 100 mls @ 50 mls/hr IV.SIG UNSCH PRN PRN Reason: For Magnesium 1.2 - 1.6 mg/dL Potassium Chloride (Kcl 40 Meq Premix Inj) 40 meq in 100 mls @ 25 mls/hr IV.SIG Q2H PRN PRN Reason: For Potassium 2.8 - 3.2 mEq/L Potassium Chloride (Kcl 20 Meq Premix Inj) 20 meq in 100 mls @ 50 mls/hr IV.SIG Q2H PRN PRN Reason: For Potassium 3.3 - 3.5 mEq/L Last Infusion: 09/19/18 12:20 Dose: Infused Potassium Chloride (Kcl 40 Meq Premix Inj) 40 meq in 100 mls @ 25 mls/hr IV.SIG UNSCH PRN PRN Reason: For Potassium 3.3 - 3.5 mEq/L Potassium Phosphate 30 mmol/ (Sodium Chloride) 260 mls @ 42 mls/hr IV.SIG UNSCH PRN PRN Reason: SEE LABEL COMMENTS Sodium Phosphate 30 mmol/ (Sodium Chloride) 260 mls @ 42 mls/hr IV.SIG UNSCH PRN PRN Reason: For Phosphorus < 2.5 mg/dL Potassium Chloride (Kcl 20 Meq Premix Inj) 20 meq in 100 mls @ 50 mls/hr IV.SIG Q2H PRN PRN Reason: For Potassium 2.8 - 3.2 mEq/L Last Infusion: 09/21/18 13:07 Dose: Infused Cefepime HCl 1,000 mg/ Sodium (Chloride) 100 mls @ 200 mls/hr IV.SIG Q8H [facility] Last Infusion: 10/02/18 08:29 Dose: Infused Insulin Human Regular (Novolin R Correctional Sugar Inj) 0 units SQ Q6HR [facility]; Protocol Last Admin: 10/02/18 11:47 Dose: Not Given Labetalol HCl (Trandate Inj) 10 mg IV.PUSH Q4H PRN PRN Reason: SBP>160, DBP>90 Lactulose (Lactulose Liq) 30 ml PO DAILY PRN PRN Reason: SEVERE CONSITIPATION Magnesium Oxide (Mag-Ox) 800 mg PO UNSCH PRN PRN Reason: For Magnesium 1.2 - 1.6 mg/dL Metoprolol Tartrate (Lopressor) 100 mg G-TUBE BID [facility] Last Admin: 09/30/18 09:53 Dose: 100 mg Midazolam HCl (Versed Inj) 2 mg IV.PUSH Q15M PRN PRN Reason: sedation Miscellaneous Medication () 1 each OROPHARYNG 0000,0400,1200,1600 [facility] Last Admin: 10/02/18 11:47 Dose: 1 each Morphine Sulfate (Morphine Inj) 2 mg IV.PUSH Q2H PRN PRN Reason: PAIN SCALE 6 TO 10 Ondansetron HCl (Zofran Inj) 4 mg IV.PUSH Q6H PRN PRN Reason: NAUSEA OR VOMITING Pantoprazole Sodium (Protonix Inj) 40 mg IV.PUSH Q12H [facility] Last Admin: 10/02/18 11:47 Dose: 40 mg Pharmacy Profile Note (Vancomycin Consult Pharmacy) 1 each OTHER UNSCH PRN PRN Reason: Pharmacy to dose Potassium Chloride (Kcl Liq) 40 meq PO UNSCH PRN PRN Reason: Potassium level 3.3-3.5 mEq/L Last Admin: 09/26/18 09:48 Dose: 40 meq Potassium Chloride (Kcl Liq) 40 meq PO UNSCH PRN PRN Reason: Potassium level 3.3-3.5 mEq/L Potassium Phosphate (K-Phos Original) 2,000 mg PO Q4H PRN PRN Reason: Phosphorus Less Than 2.5 mg/dL Potassium Phosphate (K-Phos Original) 2,000 mg PO UNSCH PRN PRN Reason: SEE LABEL COMMENTS Last Admin: 09/20/18 16:03 Dose: 2,000 mg Senna/Docusate Sodium (Rosana-Colace) 1 tab PO BID [facility] Last Admin: 10/02/18 08:13 Dose: 1 tab Sennosides (Senokot) 17.2 mg PO Q12H PRN PRN Reason: Moderate Constipation Sodium Chloride (Ns Flush) 2 ml IV.FLUSH BID [facility] Last Admin: 10/02/18 08:14 Dose: 2 ml Sodium Chloride (Ns Flush) 2 ml IV.FLUSH PRN PRN PRN Reason: FLUSH AFTER USING IV ACCESS Sterile Water (Free Water) 250 ml G-TUBE Q12H [facility] Last Admin: 10/02/18 08:13 Dose: 250 ml <Jaron Cooper - Last Filed: 10/02/18 12:09> Allergies Allergy/AdvReac Type Severity Reaction Status Date / Time *MDRO Multi-Drug Resistant AdvReac Unknown UNKNOWN Uncoded 09/18/18 18:40 Organism Home Medications Medication Instructions Recorded Confirmed Type Lactobacillus acidophilus 100 mg PO DAILY 09/18/18 09/18/18 History [Acidophilus] acetaminophen [Tylenol] 650 mg FEEDING TUBE Q6H PRN 09/18/18 09/18/18 History ascorbic acid (vitamin C) [Vitamin 500 mg FEEDING TUBE DAILY 09/18/18 09/18/18 History C] aspirin 81 mg FEEDING TUBE DAILY 09/18/18 09/18/18 History clonidine HCl 0.1 mg FEEDING TUBE DAILY PRN 09/18/18 09/18/18 History dextrose [Glucose Gel] 15 g PO DIRECTED PRN 09/18/18 09/18/18 History diltiazem HCl 60 mg FEEDING TUBE QID 09/18/18 09/18/18 History glucagon (human recombinant) 1 mg IM DIRECTED PRN 09/18/18 09/18/18 History [Glucagon Emergency Kit (human)] guaifenesin [Tussin] 200 mg FEEDING TUBE Q4H PRN 09/18/18 09/18/18 History hydrocodone-acetaminophen [[place]] 1 tab FEEDING TUBE Q6H PRN 09/18/18 09/18/18 History insulin detemir U-100 [Levemir 5 unit SUBCUT BID 09/18/18 09/18/18 History U-100 Insulin] ipratropium-albuterol 3 ml INHALATION Q4H PRN 09/18/18 09/18/18 History loperamide 2 mg FEEDING TUBE Q6H PRN 09/18/18 09/18/18 History metoprolol tartrate 100 mg FEEDING TUBE Q12HR 09/18/18 09/18/18 History multivitamin 1 tab FEEDING TUBE DAILY 09/18/18 09/18/18 History Exam Vital signs: Vital Signs 09/30/18 11:26 09/30/18 11:30 09/30/18 12:00 Temperature 98 F Pulse Rate 80 83 Respiratory Rate 16 16 Blood Pressure 84/48 L 87/52 L Pulse Oximetry 95 95 100 09/30/18 12:30 09/30/18 13:00 09/30/18 13:30 Temperature Pulse Rate 89 92 H 96 H Respiratory Rate 16 16 16 Blood Pressure 95/53 L 93/52 L 87/52 L Pulse Oximetry 98 100 96 09/30/18 13:34 09/30/18 14:00 09/30/18 14:06 Temperature Pulse Rate 94 H 94 H Respiratory Rate 16 14 16 Blood Pressure 76/45 L 76/45 L Pulse Oximetry 100 99 98 09/30/18 14:30 09/30/18 15:00 09/30/18 15:30 Temperature Pulse Rate 97 H 96 H 93 H Respiratory Rate 16 16 16 Blood Pressure 79/48 L 88/53 L 84/57 L Pulse Oximetry 97 96 98 09/30/18 16:00 09/30/18 16:30 09/30/18 16:52 Temperature Pulse Rate 97 H 100 H 100 H Respiratory Rate 16 16 16 Blood Pressure 84/49 L 86/49 L Pulse Oximetry 98 98 09/30/18 17:00 09/30/18 17:30 09/30/18 17:56 Temperature Pulse Rate 101 H 103 H Respiratory Rate 16 16 18 Blood Pressure 93/53 L 91/53 L Pulse Oximetry 97 100 98 09/30/18 18:00 09/30/18 18:30 09/30/18 19:00 Temperature Pulse Rate 105 H 106 H 106 H Respiratory Rate 16 16 23 Blood Pressure 95/53 L 92/53 L 84/51 L Pulse Oximetry 97 100 99 09/30/18 19:23 09/30/18 20:00 09/30/18 20:18 Temperature 100.3 F H Pulse Rate 110 H 108 H 101 H Respiratory Rate 19 16 16 Blood Pressure 96/53 L 95/54 L Pulse Oximetry 100 100 100 09/30/18 22:00 09/30/18 23:43 10/01/18 00:00 Temperature 100.4 F H Pulse Rate 110 H 122 H 124 H Respiratory Rate 18 16 Blood Pressure 112/58 L Pulse Oximetry 100 10/01/18 01:20 10/01/18 02:00 10/01/18 04:00 Temperature 100 F H Pulse Rate 121 H 124 H Respiratory Rate 21 16 Blood Pressure 100/56 L Pulse Oximetry 96 100 10/01/18 04:23 10/01/18 06:00 10/01/18 07:24 Temperature Pulse Rate 127 H 130 H Respiratory Rate 23 25 H Blood Pressure Pulse Oximetry 98 98 10/01/18 07:26 10/01/18 09:51 10/01/18 10:57 Temperature 101.5 F H Pulse Rate 125 H Respiratory Rate 25 H 17 Blood Pressure 108/61 Pulse Oximetry 98 97 98 10/01/18 11:08 Temperature Pulse Rate 127 H Respiratory Rate 20 Blood Pressure Pulse Oximetry Intake & Output 09/30/18 10/01/18 10/01/18 18:59 06:59 18:59 Intake Total 959 / 959 1063 / 1063 250 / 250 Output Total 150 / 150 500 / 500 Balance 809 / 809 563 / 563 250 / 250 Weight 60 kg Intake: IV 70 / 70 Diprivan 1000 mg/100 ml Inj 1, 70 / 70 000 mg In 100 ml @ 5 MCG/KG/MIN 2.041 mls/hr IV.CONT TITRATE PRN Rx#:[id number] Oral 0 / 0 Tube Feeding 639 / 639 503 / 503 Tube Irrigant 60 / 60 Water Bolus Amount 250 / 250 Free Water Amount 250 / 250 250 / 250 250 / 250 Intake (Blood Product) Amt 0 / 0 Rbc As-3 Leukoreduced Unit 0 / 0 [id number] Output: Stool 100 / 100 100 / 100 Urine Amount (Catheter) 50 / 50 400 / 400 Female External 50 / 50 400 / 400 Other: Date of Last Bowel Movement 09/30/18 09/30/18 - Constitutional chronically ill appearing Comments: Intubated and mechanically ventilated - Routine HEENT Exam Head: Present: normocephalic ENT: Present: mucous membranes moist - Routine Neck Exam Comments: Tracheostomy - Routine Respiratory Exam Present: patient mechanically ventilated - Routine Cardiovascular Exam Present: tachycardia - Routine Abdominal Exam Present: soft, ostomy. Absent: tenderness Comments: Estimated 5 x 5 cm hematoma left lower quadrant abdomen - Routine Extremities Exam Absent: edema Comments: Left AKA - Routine Skin Exam Present: dry, warm - Routine Neurological Exam Intubated and mechanically ventilated No sedation <Yael Haines - Last Filed: 10/01/18 17:13> Vital signs: Vital Signs 10/01/18 12:57 10/01/18 13:00 10/01/18 13:05 Temperature 100.7 F H Pulse Rate 115 H 115 H Respiratory Rate 15 17 16 Blood Pressure 95/51 L 137/61 Pulse Oximetry 100 99 99 10/01/18 13:14 10/01/18 13:25 10/01/18 14:00 Temperature 100.4 F H Pulse Rate 115 H 115 H 116 H Respiratory Rate 17 17 18 Blood Pressure 109/59 L 109/59 L 105/55 L Pulse Oximetry 98 97 10/01/18 15:00 10/01/18 15:18 10/01/18 16:00 Temperature 100.4 F H Pulse Rate 109 H 111 H 115 H Respiratory Rate 17 17 17 Blood Pressure 102/63 107/54 L Pulse Oximetry 97 96 10/01/18 16:56 10/01/18 17:00 10/01/18 18:00 Temperature Pulse Rate 109 H 113 H Respiratory Rate 17 19 25 H Blood Pressure 113/54 L 123/56 L Pulse Oximetry 98 96 99 10/01/18 19:00 10/01/18 20:00 10/01/18 20:19 Temperature 98.4 F Pulse Rate 112 H 110 H 109 H Respiratory Rate 45 H 32 H 16 Blood Pressure 140/62 101/61 Pulse Oximetry 97 98 100 10/01/18 21:00 10/01/18 22:00 10/01/18 23:00 Temperature Pulse Rate 114 H 119 H 118 H Respiratory Rate 20 25 H 17 Blood Pressure 104/61 106/76 101/55 L Pulse Oximetry 98 99 97 10/02/18 00:00 10/02/18 00:20 10/02/18 00:24 Temperature 100 F H Pulse Rate 124 H 112 H Respiratory Rate 22 16 19 Blood Pressure 106/64 Pulse Oximetry 98 98 10/02/18 01:00 10/02/18 02:00 10/02/18 03:00 Temperature Pulse Rate 125 H 128 H 126 H Respiratory Rate 26 H 24 24 Blood Pressure 103/52 L 109/63 94/66 L Pulse Oximetry 98 97 97 10/02/18 04:00 10/02/18 04:01 10/02/18 04:07 Temperature Pulse Rate 128 H 127 H Respiratory Rate 31 H 38 H 20 Blood Pressure 133/79 Pulse Oximetry 100 97 98 10/02/18 04:13 10/02/18 04:15 10/02/18 04:30 Temperature 100.6 F H Pulse Rate 127 H 128 H 128 H Respiratory Rate 35 H 38 H 36 H Blood Pressure 122/63 116/82 125/67 Pulse Oximetry 99 99 98 10/02/18 04:45 10/02/18 05:00 10/02/18 05:15 Temperature Pulse Rate 126 H 125 H 124 H Respiratory Rate 41 H 30 H 32 H Blood Pressure 116/59 L 107/58 L 89/54 L Pulse Oximetry 98 98 98 10/02/18 05:30 10/02/18 05:34 10/02/18 05:45 Temperature 101.5 F H Pulse Rate 122 H 124 H 119 H Respiratory Rate 17 24 30 H Blood Pressure 80/50 L 81/53 L 81/57 L Pulse Oximetry 98 97 98 10/02/18 06:00 10/02/18 06:15 10/02/18 06:30 Temperature Pulse Rate 123 H 119 H 118 H Respiratory Rate 42 H 47 H 34 H Blood Pressure 91/61 L 94/57 L 93/54 L Pulse Oximetry 98 98 98 10/02/18 06:45 10/02/18 07:00 10/02/18 07:15 Temperature Pulse Rate 121 H 116 H 115 H Respiratory Rate 45 H 41 H 39 H Blood Pressure 128/56 L 149/73 H 118/56 L Pulse Oximetry 100 98 98 10/02/18 07:30 10/02/18 07:33 10/02/18 07:40 Temperature Pulse Rate 115 H 108 H Respiratory Rate 48 H 25 H 18 Blood Pressure 109/54 L Pulse Oximetry 100 99 10/02/18 07:45 10/02/18 08:00 10/02/18 08:06 Temperature 99.4 F Pulse Rate 110 H 107 H 106 H Respiratory Rate 34 H 13 19 Blood Pressure 90/51 L 67/34 L 104/54 L Pulse Oximetry 100 97 95 10/02/18 08:15 10/02/18 10:00 10/02/18 11:33 Temperature Pulse Rate 108 H 105 H 99 H Respiratory Rate 19 28 H Blood Pressure 113/56 L Pulse Oximetry 95 98 Intake & Output 10/01/18 10/02/18 10/02/18 18:59 06:59 18:59 Intake Total 2078 / 2078 1200 / 1200 865 / 865 Output Total 50 / 50 Balance 2067 1150 / 1150 865 / 865 Weight 60.9 kg Intake: IV 615 / 615 Maxipime Inj 1,000 MG In NS Inj 100 / 100 100 ML @ 200 mls/hr IV.SIG Q8H [facility] Rx#:[id number] Vancomycin Inj 1,500 MG In NS 515 / 515 Inj 500 ML @ 257.5 mls/hr IV. SIG ONCE ONE Rx#:[id number] Tube Feeding 778 / 778 700 / 700 Water Bolus Amount 250 / 250 250 / 250 Free Water Amount 250 / 250 250 / 250 250 / 250 Intake (Blood Product) Amt 800 / 800 Rbc As-3 Leukoreduced Unit 400 / 400 [id number] Rbc As-3 Leukoreduced Unit 400 / 400 [id number] Output: Stool 50 / 50 Urine Amount (Catheter) Straight Other: # Incontinent Voids 3 Date of Last Bowel Movement 10/01/18 10/02/18 10/02/18 # Incontinent Bowel Movements 3 <Jaron Cooper - Last Filed: 10/02/18 12:09> Results - Labs CBC & Chem 7: 10/01/18 04:15 10/01/18 04:15 Labs: Laboratory Results - last 24 hr 10/01/18 10/01/18 10/01/18 01:37 03:22 04:15 WBC 11.7 H RBC 3.10 L Hgb 6.7 L* Hct 23.9 L MCV 77.0 L MCH 21.7 L MCHC 28.2 L RDW 19.5 H Plt Count 242 MPV 9.8 Prelim Diff (Auto) Slide review pending Neut % (Auto) 81.8 H Lymph % (Auto) 6.5 L Foard % (Auto) 7.5 Eos % (Auto) 3.4 Baso % (Auto) 0.8 Neut # (Auto) 9.6 H Lymph # (Auto) 0.8 L [place]oard # (Auto) 0.9 Eos # (Auto) 0.4 Baso # (Auto) 0.1 WBC Differential . Diff Scan Auto diff confirmed Differential Comment . Platelet Estimate Normal Platelet Morphology Enlarged H Ovalocytes 1+ H Sodium Potassium Chloride Carbon Dioxide Anion Gap BUN Creatinine Estimated GFR POC Glucose 152 H Random Glucose Calcium Phosphorus Magnesium Total Bilirubin AST ALT Alkaline Phosphatase Total Protein Albumin MTS Gel Crossmatch See Detail 10/01/18 04:15 WBC RBC Hgb Hct MCV MCH MCHC RDW Plt Count MPV Prelim Diff (Auto) Neut % (Auto) Lymph % (Auto) Foard % (Auto) Eos % (Auto) Baso % (Auto) Neut # (Auto) Lymph # (Auto) Foard # (Auto) Eos # (Auto) Baso # (Auto) WBC Differential Diff Scan Differential Comment Platelet Estimate Platelet Morphology Ovalocytes Sodium 142 Potassium 3.9 Chloride 109 H Carbon Dioxide 25.8 Anion Gap 7 BUN 21 H Creatinine 0.84 Estimated GFR 81 L POC Glucose Random Glucose 111 H Calcium 8.6 Phosphorus 3.2 Magnesium 2.7 H Total Bilirubin 0.3 AST 18 ALT 25 Alkaline Phosphatase 103 Total Protein 7.3 Albumin 2.3 L MTS Gel Crossmatch <Yael Haines - Last Filed: 10/01/18 17:13> - Labs CBC & Chem 7: 10/02/18 05:20 10/02/18 05:20 Labs: Laboratory Results - last 24 hr 10/01/18 10/01/18 10/01/18 03:22 12:46 14:20 WBC RBC Hgb Hct MCV MCH MCHC RDW Plt Count MPV Neut % (Auto) Lymph % (Auto) [place]oard % (Auto) Eos % (Auto) Baso % (Auto) Neut # (Auto) Lymph # (Auto) [place]oard # (Auto) Eos # (Auto) Baso # (Auto) WBC Differential Differential Comment Sodium Potassium Chloride Carbon Dioxide Anion Gap BUN Creatinine Estimated GFR POC Glucose 172 H Random Glucose Calcium Phosphorus Magnesium Total Bilirubin AST ALT Alkaline Phosphatase Total Protein Albumin Urine Color Yellow Urine Clarity Hazy H Urine pH 5.0 Ur Specific [place] 1.024 Urine Protein 30 H Urine Glucose (UA) Negative Urine Ketones Negative Urine Occult Blood Negative Urine Nitrate Negative Urine Bilirubin Negative Urine Urobilinogen Less than 2 Ur Leukocyte Esterase Trace H Urine WBC 4 Ur Squamous Epith Cells <1 Granular Casts 1 Urine Mucus Few H Ur Microscopic Review Not Reportable Stl C.difficile DNA Amp St C. diff Tox Epid 027 MTS Gel Crossmatch See Detail 10/01/18 10/01/18 10/01/18 16:10 16:50 18:16 WBC RBC Hgb 10.3 L D Hct 32.7 L MCV MCH MCHC RDW Plt Count MPV Neut % (Auto) Lymph % (Auto) [place] % (Auto) Eos % (Auto) Baso % (Auto) Neut # (Auto) Lymph # (Auto) [place] # (Auto) Eos # (Auto) Baso # (Auto) WBC Differential Differential Comment Sodium Potassium Chloride Carbon Dioxide Anion Gap BUN Creatinine Estimated GFR POC Glucose 145 H Random Glucose Calcium Phosphorus Magnesium Total Bilirubin AST ALT Alkaline Phosphatase Total Protein Albumin Urine Color Urine Clarity Urine pH Ur Specific [place] Urine Protein Urine Glucose (UA) Urine Ketones Urine Occult Blood Urine Nitrate Urine Bilirubin Urine Urobilinogen Ur Leukocyte Esterase Urine WBC Ur Squamous Epith Cells Granular Casts Urine Mucus Ur Microscopic Review Stl C.difficile DNA Amp Negative St C. diff Tox Epid 027 Negative MTS Gel Crossmatch 10/01/18 10/02/18 10/02/18 23:54 05:20 05:20 WBC 12.9 H RBC 3.90 L Hgb 9.7 L Hct 30.9 L MCV 79.0 L MCH 24.9 L MCHC 31.5 L RDW 20.1 H Plt Count 244 MPV 9.5 Neut % (Auto) 85.2 H Lymph % (Auto) 5.4 L [place] % (Auto) 5.5 Eos % (Auto) 3.5 Baso % (Auto) 0.4 Neut # (Auto) 11.0 H Lymph # (Auto) 0.7 L [place] # (Auto) 0.7 Eos # (Auto) 0.4 Baso # (Auto) 0.1 WBC Differential . Differential Comment Auto diff final Sodium 142 Potassium 4.1 Chloride 110 H Carbon Dioxide 24.7 Anion Gap 7 BUN 23 H Creatinine 0.76 Estimated GFR Greater than 89 POC Glucose 148 H Random Glucose 125 H Calcium 8.4 L Phosphorus 3.1 Magnesium 2.7 H Total Bilirubin 0.5 AST 19 ALT 25 Alkaline Phosphatase 113 Total Protein 7.7 Albumin 2.2 L Urine Color Urine Clarity Urine pH Ur Specific [place] Urine Protein Urine Glucose (UA) Urine Ketones Urine Occult Blood Urine Nitrate Urine Bilirubin Urine Urobilinogen Ur Leukocyte Esterase Urine WBC Ur Squamous Epith Cells Granular Casts Urine Mucus Ur Microscopic Review Stl C.difficile DNA Amp St C. diff Tox Epid 027 MTS Gel Crossmatch 10/02/18 10/02/18 06:03 11:18 WBC RBC Hgb Hct MCV MCH MCHC RDW Plt Count MPV Neut % (Auto) Lymph % (Auto) [place] % (Auto) Eos % (Auto) Baso % (Auto) Neut # (Auto) Lymph # (Auto) [place] # (Auto) Eos # (Auto) Baso # (Auto) WBC Differential Differential Comment Sodium Potassium Chloride Carbon Dioxide Anion Gap BUN Creatinine Estimated GFR POC Glucose 140 H 116 H Random Glucose Calcium Phosphorus Magnesium Total Bilirubin AST ALT Alkaline Phosphatase Total Protein Albumin Urine Color Urine Clarity Urine pH Ur Specific [place] Urine Protein Urine Glucose (UA) Urine Ketones Urine Occult Blood Urine Nitrate Urine Bilirubin Urine Urobilinogen Ur Leukocyte Esterase Urine WBC Ur Squamous Epith Cells Granular Casts Urine Mucus Ur Microscopic Review Stl C.difficile DNA Amp St C. diff Tox Epid 027 MTS Gel Crossmatch - Imaging Impressions Venous Doppler Study 10/01/18 00:00 CONCLUSION: 1. Superficial venous thrombosis identified in the right cephalic vein. 2. No evidence of DVT. Abdomen X-Ray 10/02/18 06:48 CONCLUSION: Persistent airspace consolidation involving the right lower lobe. Abdominal bowel gas pattern is normal. Chest X-Ray 10/02/18 06:48 CONCLUSION: There is persistent airspace consolidation involving the right lower lobe. There is improved aeration on the current exam. <Jaron Cooper - Last Filed: 10/02/18 12:09> Assessment and Plan (1) Anemia Status: Acute Code(s): D64.9 - Anemia, unspecified - Plan This patient is a 68-year-old female with past medical history significant for CVA, left AKA, acute respiratory failure, diabetes, dysphagia, hypertension, hemiparesis, hemiplegia and hypoxia. Surgical history significant for PEG tube placement, tracheostomy and left above-knee amputation. Patient presented to [facility] emergency room via EMS for reported hypoxemia. Of note, patient was on home hospice prior to arrival. Upon arrival, patient was intubated by ER attending for protection of airway. Our service has been consulted to evaluate patient for worsening anemia requiring blood transfusion. Patient is currently being cared for in the critical care setting post tracheostomy placement, patient mechanically ventilated. Temperature 101.5 this a.m. sinus tach on monitoring and evaluation advisor. Patient presently having loose watery stools, dignity shield applied with noted liquid brown stool present. ICU nurse reports no obvious noted bleeding. Hemoglobin 6.7 hematocrit 23.9. Patient currently receiving 1st of 2 units of packed RBCs for transfusion. Upon exam, estimated 5 x 5 cm hematoma to the left lower quadrant of abdomen. Left upper extremity phlebitis noted. Patient currently receiving Lovenox 60 mg subcutaneously every 12 hours. Anemia-requiring blood transfusion- Microcytic anemia christina chronic 68-year-old female admitted to [facility] for hypoxemia mental status changes. Patient intubated upon arrival. Our service has been consulted for worsening anemia now requiring blood transfusion of 2 units packed RBCs. There have been no obvious signs of bleeding reported. Patient presently trach and ventilated FiO2 35%. PEG tube with Glucerna at 60 mL's per hour. Abdomen soft with bowel sounds present, ~5 x 5 cm hematoma left lower quadrant. Patient currently receiving Lovenox 60 mg subcutaneous every 12 hours. -Hemoglobin 6.7 hematocrit 23.9 WBC 11.7 platelet count 242 -Total bilirubin 0.3 AST 18 ALT 25 alk phos 103 Plan -N.p.o. -NG tube feedings as per dietary recommendations and tolerance -Monitor for active bleeding -Plan of care as per critical care medicine -Monitor hemoglobin and hematocrit closely -Transfuse as needed -Discontinue famotidine -Pantoprazole 40 mg IV every 12 hours -EGD/colonoscopy when patient stable-according to further family wishes -Palliative following -Stool studies -Supportive care -Further recommendations to follow This patient has been seen by myself and Dr. Cooper and this note is written on his behalf - Attending Attestation Dr. Cooper <Yael Haines - Last Filed: 10/01/18 17:13> (1) Anemia Status: Acute Code(s): D64.9 - Anemia, unspecified - Attending Attestation I have seen and examined the patient and reviewed the patients care with the [employer]LE [employer]PERVISOR. I agree with the above assessment and recommendations as documented above. <Jaron Cooper - Last Filed: 10/02/18 12:09>
[2018-10-01] MEDS: Pantoprazole Inj 40 MG Vial IV.PUSH SCH (12:52)
--- NOTE | 2018-10-01 13:19 | P.PNWCN ---
Wound Care Nurse Consult Description: Patient seen for follow up for Unstageable pressure injury to Right Coccyx/ sacrum. Communicated with: Spoke with bedside nurse Merced Stock RN. Recommendation: 1. Please cleanse wound to sacral area with normal saline only and pat dry. 2. Apply cavilon skin barrier film to periwound. 3. Apply Santyl ointment janet thickness to wound bed 4. Pack wound loosely with maxorb II, avoiding periwound intact skin 5.Apply Bordered gauze in place and change dressing daily. 6. Turn patient every 2 hours from L side to R side, limiting time spent on back to P.T., patient care and meals. 7. Place patient on low airloss bed when it arrives. Do not place cotton underpads on low airloss bed. Additional information: Spoke with bedside RN. Dressing just reapplied and wound is still open. Santyl remains ordered. Please continue previous recommendations. Wound care will follow up. Wound/Pressure Injury - Additional Information .
--- NOTE | 2018-10-01 14:17 | US ---
EXAM DATE: 10/01/2018 1:59 PM EST AGE/SEX: 68 years / Female INDICATIONS: Bilateral arm edema. CLINICAL DATA: This is the patient's initial encounter. Patient reports that signs and symptoms have been present for 1 day and indicates a pain score of 0/10. MEDICAL/SURGICAL HISTORY: Diabetes. Hypertension. Acute respiratory failure on mechanical vent ilation. CVA. Dysphagia. Hemiplegia. Hypoxia. . Tracheostomy. Amputation above left knee. PEG tube p lacement. [place]PAR[place] [facility] [place]/21/2018. . FINDINGS: Right Upper Extremity: The distal right cephalic vein is noncompressible and there is no evidence of flow on Doppler evaluation.The vessels are otherwise compressible and augmentation response is docum ented. No other filling defects are seen. The flow is phasic with respiration. Left Upper Extremity: The vessels are otherwise compressible and augmentation response is documented . No other filling defects are seen. The flow is phasic with respiration. Other: None. CONCLUSION: 1. Superficial venous thrombosis identified in the right cephalic vein. 2. No evidence of DVT. Electronically signed by: Adrian Seay MD Board Certified Radiologist 10/01/2018 2:15 PM EST
[2018-10-01 16:18] LABS: Bilirubin,Urine Negative (Negative); Clarity,Urine Hazy (Clear); Glucose,Urine (UA) Negative (Negative); Leukocyte Esterase,Urine Trace (Negative); Mucus,Urine Few /lpf (Occasional); Nitrite,Urine Negative (Negative); Specific Gravity,Urine 1.024 (1.002-1.035); Squamous Epithelial Cell,Urine <1 /hpf (0-5)
[2018-10-01 16:23] LABS: Color,Urine Yellow (Yellw/Straw)
[2018-10-01 17:19] LABS: Hematocrit 32.7 % (35.0-46.0); Hemoglobin 10.3 gm/dL (11.6-15.3)
--- NOTE | 2018-10-01 20:09 | P.PNPL ---
Subjective Interval history: 68 YOAA female who was with Hospice svc, now rescended Daughter at , she dw her step father and do not want any lung bx Sedated No fever On Vent, did't tolerate CPAP Physical Exam Vital signs: Vital Signs 09/30/18 20:18 09/30/18 22:00 09/30/18 23:43 Temperature Pulse Rate 101 H 110 H 122 H Respiratory Rate 16 18 Blood Pressure Pulse Oximetry 100 10/01/18 00:00 10/01/18 01:20 10/01/18 02:00 Temperature 100.4 F H Pulse Rate 124 H 121 H Respiratory Rate 16 21 Blood Pressure 112/58 L Pulse Oximetry 100 96 10/01/18 04:00 10/01/18 04:23 10/01/18 06:00 Temperature 100 F H Pulse Rate 124 H 127 H 130 H Respiratory Rate 16 23 Blood Pressure 100/56 L Pulse Oximetry 100 98 10/01/18 07:00 10/01/18 07:24 10/01/18 07:26 Temperature Pulse Rate 141 H Respiratory Rate 47 H 25 H Blood Pressure 124/59 L Pulse Oximetry 94 L 98 98 10/01/18 08:00 10/01/18 09:00 10/01/18 09:51 Temperature 101.5 F H 101.5 F H Pulse Rate 127 H 129 H 125 H Respiratory Rate 18 46 H 25 H Blood Pressure 102/50 L 108/61 108/61 Pulse Oximetry 97 95 97 10/01/18 10:00 10/01/18 10:23 10/01/18 10:40 Temperature 100.8 F H Pulse Rate 129 H 126 H 126 H Respiratory Rate 55 H 16 16 Blood Pressure 72/36 L 100/51 L Pulse Oximetry 10/01/18 10:42 10/01/18 10:57 10/01/18 11:00 Temperature Pulse Rate 130 H 128 H Respiratory Rate 28 H 17 17 Blood Pressure 100/51 L 73/41 L Pulse Oximetry 98 10/01/18 11:08 10/01/18 11:15 10/01/18 11:25 Temperature Pulse Rate 127 H 126 H 125 H Respiratory Rate 20 16 17 Blood Pressure 65/40 L 109/56 L Pulse Oximetry 94 L 97 10/01/18 12:00 10/01/18 12:57 10/01/18 13:00 Temperature 100.7 F H 100.7 F H Pulse Rate 118 H 115 H 115 H Respiratory Rate 22 15 17 Blood Pressure 95/51 L 95/51 L 137/61 Pulse Oximetry 97 100 99 10/01/18 13:05 10/01/18 13:14 10/01/18 13:25 Temperature 100.4 F H Pulse Rate 115 H 115 H Respiratory Rate 16 17 17 Blood Pressure 109/59 L 109/59 L Pulse Oximetry 99 98 10/01/18 14:00 10/01/18 15:00 10/01/18 15:18 Temperature Pulse Rate 116 H 109 H 111 H Respiratory Rate 18 17 17 Blood Pressure 105/55 L 102/63 Pulse Oximetry 97 97 10/01/18 16:00 10/01/18 16:56 10/01/18 17:00 Temperature 100.4 F H Pulse Rate 115 H 109 H Respiratory Rate 17 17 19 Blood Pressure 107/54 L 113/54 L Pulse Oximetry 96 98 96 10/01/18 18:00 Temperature Pulse Rate 112 H Respiratory Rate Blood Pressure Pulse Oximetry Intake & Output 10/01/18 10/01/18 10/02/18 06:59 18:59 06:59 Intake Total 1063 / 1063 2077 Output Total 500 / 500 / 10 Balance 563 / 563 2067 Weight 60 kg Intake: Oral 0 / 0 Tube Feeding 503 / 503 778 / 778 Tube Irrigant 60 / 60 Water Bolus Amount 250 / 250 250 / 250 Free Water Amount 250 / 250 250 / 250 Intake (Blood Product) Amt 800 / 800 Rbc As-3 Leukoreduced Unit 400 / 400 [id number] Rbc As-3 Leukoreduced Unit 400 / 400 [id number] Output: Stool 100 / 100 Urine Amount (Catheter) 400 / 400 Female External 400 / 400 Straight Other: Date of Last Bowel Movement 09/30/18 10/01/18 # Incontinent Bowel Movements 3 GENERAL: Elderly Aa female, on vent SKIN: Warm and dry. HEAD: Normocephalic. EYES: No scleral icterus. No injection or drainage. NECK: Supple, trachea midline. No JVD or lymphadenopathy. has Trach CARDIOVASCULAR: Regular rate and rhythm without murmurs, gallops, or rubs. RESPIRATORY: Breath sounds equal bilaterally. No accessory muscle use. GASTROINTESTINAL: Abdomen soft, non-tender, nondistended. MUSCULOSKELETAL: No cyanosis, or edema. Left AKA BACK: Nontender without obvious deformity. No CVA tenderness. - Urinary Catheter Management Indwelling Temp Sensing Catheter Cath placed during this visit: yes, but has since been removed by the nurse Reason for continuing: Severe pressure ulcer/wound Insertion date: 09/18/18 Insertion time: 18:50 Removal date: 09/23/18 Removal time: 16:00 Female External Cath placed during this visit: no Straight Cath placed during this visit: no Assessment and Plan - Plan IMPRESSION: VDRF large Rt lung mass COPD HTN H/O CVA PLAN: Cont vent support PRVC-AC Aerosol nebs IV Solumedrol Cont Abx Trach care.
[2018-10-02] MEDS: Oral Hygiene Kit OROPHARYNG SCH ×5 (00:01→23:30)
[2018-10-02] MEDS: Pantoprazole Inj 40 MG Vial IV.PUSH SCH ×3 (01:02→23:30)
[2018-10-02] MEDS: dilTIAZem 30 MG Tablet PO SCH ×4 (05:00→22:02)
[2018-10-02] MEDS: Acetaminophen 325 MG Tablet PO PRN ×2 (06:00→20:58)
[2018-10-02 06:01] LABS: Baso # (Auto) 0.1 th/mm3 (0.0-0.2); Baso % (Auto) 0.4 % (0.0-2.0); Eos # (Auto) 0.4 th/mm3 (0.0-0.4); Eos % (Auto) 3.5 % (0.0-4.0); Hematocrit 30.9 % (35.0-46.0); Hemoglobin 9.7 gm/dL (11.6-15.3); Lymph # (Auto) 0.7 th/mm3 (1.0-4.8); Lymph % (Auto) 5.4 % (9.0-44.0); Mean Corpuscular HGB Conc 31.5 % (32.0-36.0); Mean Corpuscular Hemoglobin 24.9 pg (27.0-34.0); Mean Platelet Volume 9.5 fL (7.0-11.0); Mono # (Auto) 0.7 th/mm3 (0.0-0.9); Mono % (Auto) 5.5 % (0.0-8.0); Neut % (Auto) 85.2 % (16.0-70.0); Platelet Count 244 th/mm3 (150-450); Red Cell Distribution Width 20.1 % (11.6-17.2); White Blood Count 12.9 th/mm3 (4.0-11.0)
[2018-10-02] MEDS: Insulin NovoLIN Regular Correctional Sugar Inj SQ SCH ×5 (06:09→23:34)
[2018-10-02 06:16] LABS: Alanine Aminotransferase 25 U/L (10-53); Albumin 2.2 g/dL (3.4-5.0); Anion Gap 7 meq/L (5-15); Aspartate Aminotransferase 19 U/L (15-37); Blood Urea Nitrogen 23 mg/dL (7-18); Calcium 8.4 mg/dL (8.5-10.1); Carbon Dioxide 24.7 meq/L (21.0-32.0); Chloride 110 meq/L (98-107); Glomerular Filtration Rate Greater Than 89 mL/min (>89); Glucose,Random 125 mg/dL (74-106); Magnesium 2.7 mg/dL (1.5-2.5); Phosphorus 3.1 mg/dL (2.5-4.9); Potassium 4.1 meq/L (3.5-5.1); Sodium 142 meq/L (136-145)
[2018-10-02 06:17] LABS: Alkaline Phosphatase 113 U/L (45-117); Total Protein 7.7 g/dL (6.4-8.2)
--- NOTE | 2018-10-02 06:47 | P.PNCC ---
Subjective Subjective Remarks/Hospital Course: 09/18: 68-year-old female past medical history of stroke, left BKA, who was on home hospice until just prior to arrival, presents for an evaluation of fever and altered mental status. According to EMS the patient had not required oxygen until beginning of this week when she had gradual increased demand of her oxygen. End-tidal CO2 prior to arrival was 6. Initial room nasal cannula saturation was 91, she was placed on nonrebreather position of comfort and transfer to emergency department. EMS related that the had elected to revoke the patient's DNR and hospice care prior to transferring her to the hospital. The patient apparently is normally a GCS of 14, apparently she does take some thickened food p.o. department the patient was severely altered with GCS of 6 on arrival [id number] and was intubated by ED attending for an airway protection. 09/19: Remains sedated, orally intubated on mechanical ventilation. CT chest showed right lower lobe lung mass suspicious for malignancy. Patient has a PEG tube following previous stroke. 09/20: Remains sedated, orally intubated on mechanical ventilation. Started on tube feeds. 09/21: Remains sedated, orally intubated on mechanical ventilation. Tolerating tube feeds. Right approximately swelling noted. 09/22 Is not tolerating CPAP trial when decrease PS below 18. Daughter at bedside, says will be here later. Says they don't think they want to proceed with lung biopsy at this time, but on the other hand she discusses the possibility of re-do trach. She says they are not sure how to proceed. I suggested we meet together. Daughter states she has been bedridden since stroke about 4 years ago. Has been in longterm. PEG due to dysphagia, does not eat. Speaks a little but daughter states she has declined significantly over the last 2 weeks. 09/23 No significant change. Patient does not tolerate CPAP. Family is very clear that they do not wish to pursue biopsy or diagnosis of suspected lung cancer. At this time, they wish to continue supportive care with vent and FULL CODE. 09/24 No change. Does not tolerate CPAP. Will diurese for positive fluid balance. 09/25 Now on CPAP 20/5 and not tolerating wean. Continue attempts at diuresis to address positive fluid balance since admission 09/26: Remains sedated, orally intubated on mechanical ventilation. Hold CPAP trials yesterday 09/27 Patient is sedated with Diprivan and intubated. Tolerating tube feeds. Afebrile. 09/28 Patient remains intubated and sedated. T;100.8 09/29 Has not made any progress towards weaning. Family offered comfort measures however they expressed desire to proceed with trach Subjective: 09/30 status post bedside tracheostomy yesterday by Dr. Gavin. Discontinued propofol drip. On CPAP 14/5 for 2 hours today. BP is low, will need to hold metoprolol and titrate back on cardizem (nurses held some doses yesterday too). Positive fluid balance but not able to diurese today due to low BP. Awaiting bed at [facility]. 10/01 Patient remains on ventilator via trach. On no sedation. Hgb 6.7 this morning and T: 100.4 at midnight. Tachycardic. 10/02 Patient is on ventilator via trach. On no sedation. Spiked fever with T: 101.5. s/p transfusion 2u PRBC yesterday. [place]/thick secretions noted per nursing staff. Objective Vital Signs / I&O: Vital Signs 10/01/18 07:00 10/01/18 07:24 10/01/18 07:26 Temperature Pulse Rate 141 H Respiratory Rate 47 H 25 H Blood Pressure 124/59 L Pulse Oximetry 94 L 98 98 10/01/18 08:00 10/01/18 09:00 10/01/18 09:51 Temperature 101.5 F H 101.5 F H Pulse Rate 127 H 129 H 125 H Respiratory Rate 18 46 H 25 H Blood Pressure 102/50 L 108/61 108/61 Pulse Oximetry 97 95 97 10/01/18 10:00 10/01/18 10:23 10/01/18 10:40 Temperature 100.8 F H Pulse Rate 129 H 126 H 126 H Respiratory Rate 55 H 16 16 Blood Pressure 72/36 L 100/51 L Pulse Oximetry 10/01/18 10:42 10/01/18 10:57 10/01/18 11:00 Temperature Pulse Rate 130 H 128 H Respiratory Rate 28 H 17 17 Blood Pressure 100/51 L 73/41 L Pulse Oximetry 98 10/01/18 11:08 10/01/18 11:15 10/01/18 11:25 Temperature Pulse Rate 127 H 126 H 125 H Respiratory Rate 20 16 17 Blood Pressure 65/40 L 109/56 L Pulse Oximetry 94 L 97 10/01/18 12:00 10/01/18 12:57 10/01/18 13:00 Temperature 100.7 F H 100.7 F H Pulse Rate 118 H 115 H 115 H Respiratory Rate 22 15 17 Blood Pressure 95/51 L 95/51 L 137/61 Pulse Oximetry 97 100 99 10/01/18 13:05 10/01/18 13:14 10/01/18 13:25 Temperature 100.4 F H Pulse Rate 115 H 115 H Respiratory Rate 16 17 17 Blood Pressure 109/59 L 109/59 L Pulse Oximetry 99 98 10/01/18 14:00 10/01/18 15:00 10/01/18 15:18 Temperature Pulse Rate 116 H 109 H 111 H Respiratory Rate 18 17 17 Blood Pressure 105/55 L 102/63 Pulse Oximetry 97 97 10/01/18 16:00 10/01/18 16:56 10/01/18 17:00 Temperature 100.4 F H Pulse Rate 115 H 109 H Respiratory Rate 17 17 19 Blood Pressure 107/54 L 113/54 L Pulse Oximetry 96 98 96 10/01/18 18:00 10/01/18 19:00 10/01/18 20:00 Temperature 98.4 F Pulse Rate 113 H 112 H 110 H Respiratory Rate 25 H 45 H 32 H Blood Pressure 123/56 L 140/62 101/61 Pulse Oximetry 99 97 98 10/01/18 20:19 10/01/18 21:00 10/01/18 22:00 Temperature Pulse Rate 109 H 114 H 119 H Respiratory Rate 16 20 25 H Blood Pressure 104/61 106/76 Pulse Oximetry 100 98 99 10/01/18 23:00 10/02/18 00:00 10/02/18 00:20 Temperature 100 F H Pulse Rate 118 H 124 H Respiratory Rate 17 22 16 Blood Pressure 101/55 L 106/64 Pulse Oximetry 97 98 98 10/02/18 00:24 10/02/18 01:00 10/02/18 02:00 Temperature Pulse Rate 112 H 125 H 128 H Respiratory Rate 19 26 H 24 Blood Pressure 103/52 L 109/63 Pulse Oximetry 98 97 10/02/18 03:00 10/02/18 04:00 10/02/18 04:01 Temperature Pulse Rate 126 H 128 H 127 H Respiratory Rate 24 31 H 38 H Blood Pressure 94/66 L 133/79 Pulse Oximetry 97 100 97 10/02/18 04:07 10/02/18 04:13 10/02/18 04:15 Temperature Pulse Rate 127 H 128 H Respiratory Rate 20 35 H 38 H Blood Pressure 122/63 116/82 Pulse Oximetry 98 99 99 10/02/18 04:30 10/02/18 04:45 10/02/18 05:00 Temperature 100.6 F H Pulse Rate 128 H 126 H 125 H Respiratory Rate 36 H 41 H 30 H Blood Pressure 125/67 116/59 L 107/58 L Pulse Oximetry 98 98 98 10/02/18 05:15 10/02/18 05:30 10/02/18 05:34 Temperature 101.5 F H Pulse Rate 124 H 122 H 124 H Respiratory Rate 32 H 17 24 Blood Pressure 89/54 L 80/50 L 81/53 L Pulse Oximetry 98 98 97 10/02/18 05:45 10/02/18 06:00 10/02/18 06:15 Temperature Pulse Rate 119 H 123 H 119 H Respiratory Rate 30 H 42 H 47 H Blood Pressure 81/57 L 91/61 L 94/57 L Pulse Oximetry 98 98 98 Intake & Output 10/01/18 10/01/18 10/02/18 06:59 18:59 06:59 Intake Total 1063 / 1063 2077 1200 / 1200 Output Total 500 / 500 10 / 10 50 / 50 Balance 563 / 563 2067 / 2067 1150 / 1150 Weight 60 kg 60.9 kg Intake: Oral 0 / 0 Tube Feeding 503 / 503 778 / 778 700 / 700 Tube Irrigant 60 / 60 Water Bolus Amount 250 / 250 250 / 250 250 / 250 Free Water Amount 250 / 250 250 / 250 250 / 250 Intake (Blood Product) Amt 800 / 800 Rbc As-3 Leukoreduced Unit 400 / 400 [id number] Rbc As-3 Leukoreduced Unit 400 / 400 [id number] Output: Stool 100 / 100 50 / 50 Urine Amount (Catheter) 400 / 400 10 / 10 Female External 400 / 400 Straight Other: # Incontinent Voids 3 Date of Last Bowel Movement 09/30/18 10/01/18 10/02/18 # Incontinent Bowel Movements 3 Result Diagrams: 10/02/18 05:20 10/02/18 05:20 Other Results: Laboratory Results - last 12 hr 10/01/18 10/01/18 10/02/18 16:10 23:54 05:20 WBC 12.9 H RBC 3.90 L Hgb 9.7 L Hct 30.9 L MCV 79.0 L MCH 24.9 L MCHC 31.5 L RDW 20.1 H Plt Count 244 MPV 9.5 Neut % (Auto) 85.2 H Lymph % (Auto) 5.4 L [place] % (Auto) 5.5 Eos % (Auto) 3.5 Baso % (Auto) 0.4 Neut # (Auto) 11.0 H Lymph # (Auto) 0.7 L [place] # (Auto) 0.7 Eos # (Auto) 0.4 Baso # (Auto) 0.1 WBC Differential . Differential Comment Auto diff final Sodium Potassium Chloride Carbon Dioxide Anion Gap BUN Creatinine Estimated GFR POC Glucose 148 H Random Glucose Calcium Phosphorus Magnesium Total Bilirubin AST ALT Alkaline Phosphatase Total Protein Albumin Stl C.difficile DNA Amp Negative St C. diff Tox Epid 027 Negative 10/02/18 10/02/18 05:20 06:03 WBC RBC Hgb Hct MCV MCH MCHC RDW Plt Count MPV Neut % (Auto) Lymph % (Auto) [place] % (Auto) Eos % (Auto) Baso % (Auto) Neut # (Auto) Lymph # (Auto) [place] # (Auto) Eos # (Auto) Baso # (Auto) WBC Differential Differential Comment Sodium 142 Potassium 4.1 Chloride 110 H Carbon Dioxide 24.7 Anion Gap 7 BUN 23 H Creatinine 0.76 Estimated GFR Greater than 89 POC Glucose 140 H Random Glucose 125 H Calcium 8.4 L Phosphorus 3.1 Magnesium 2.7 H Total Bilirubin 0.5 AST 19 ALT 25 Alkaline Phosphatase 113 Total Protein 7.7 Albumin 2.2 L Stl C.difficile DNA Amp St C. diff Tox Epid 027 Imaging: Head CT 09/18/18 18:40 CONCLUSION: 1. Stable appearance of the brain. Marked ventriculomegaly and white matter disease. . Chest CTA 09/18/18 19:26 CONCLUSION: 1. There is no evidence for pulmonary embolism. 2. Severe emphysema. 3. There is a large soft tissue mass in the right lower lobe suspicious for malignancy until proven otherwise. Chest X-Ray 09/29/18 14:08 CONCLUSION: 1. Interval tracheostomy tube placement. 2. Unchanged right lower lobe consolidation and bibasilar interstitial prominence. Venous Doppler Study 10/01/18 00:00 CONCLUSION: 1. Superficial venous thrombosis identified in the right cephalic vein. 2. No evidence of DVT. Objective Remarks: GENERAL: Well-nourished, well-developed patient. SKIN: Warm and dry. HEAD: Atraumatic. Normocephalic. EYES: Pupils equal and round. No scleral icterus. No injection or drainage. ENT: No nasal bleeding or discharge. Mucous membranes pink and moist. NECK: Tracheostomy in place, slight pink tinge to secretions, no active bleeding. CARDIOVASCULAR: Tachycardic, No murmurs rubs or gallops. RESPIRATORY: Orotracheally intubated on mechanical ventilation. B/L equal air entry GASTROINTESTINAL: Abdomen soft, non-tender,distended. PEG in place, MUSCULOSKELETAL: Extremities without clubbing, cyanosis, or edema. s/p L AKA. NEUROLOGICAL: Awakens, looks around. Blinks and squeezes hand to command Assessment and Plan - Assessment and Plan Plan: NEURO: History of stroke Off sedation. Monitor neuro status RESP: Acute respiratory failure on mechanical ventilation Emphysema Lung mass History of prior trach after stroke, has been subsequently decannulated Per Dr. De Jesus. not wishing to pursue CT-guided biopsy. Continue with vent support Daily CPAP trials. Vent bundle/nebs. Percutaneous tracheostomy performed at bedside 09/29. Pulm toilet, trach care Check CXR CV: HTN Monitor BP//heart rate keep MAP>65mmHg. On Cardizem to 30mg q6 with hold orders. GI: PEG in place. Glucerna 1.5 @60ml/hr Check KUB abdomen r/o ileus FEN/RENAL: Acute hypernatremia Hypokalemia resolved Monitor renal function, I/O's, electrolytes replacement per protocol. Free water 250ml Q12 , ID: HCAP UTI Urine culture from 09/18 with providentia and Proteus. Urine and sputum cultures negative Completed 8 day course of zosyn. Monitor for signs of infections ( Fever, WBC) sputum cx 09/28: No growth Start abx Cefepime and Vanco, follow up on blood cultures, check sputum cx HEME: R brachial DVT Anemia Lovenox 60 mg subcu every 12 hours. s/p Transfuse 2u PRBC 10/01 GI eval might need EGD/Colonoscopy ENDO: Diabetes mellitus Insulin sliding scale PROPH: SCD/Lovenox for DVT prophylaxis. Protonix 40mg Q12 for stress ulcer prophylaxis. 10/01 Doppler US UE b/l: Superficial venous thrombosis identified in the right cephalic vein. No evidence of DVT. 09/21 Doppler US RUE: Occlusive thrombus cephalic and brachial veins ACCESS: PIV x2. Full code Level 3 follow-up
[2018-10-02] MEDS ORDERED: Vancomycin Consult Pharmacy OTHER PRN (06:51)
--- NOTE | 2018-10-02 07:22 | XR ---
EXAM DATE: 10/02/2018 7:15 AM EST AGE/SEX: 68 years / Female INDICATIONS: Abdominal pain. CLINICAL DATA: This is the patient's subsequent encounter. Patient reports that signs and symptoms h ave been present for 2 weeks and indicates a pain score of Nonresponsive. MEDICAL/SURGICAL HISTORY: Diabetes. Hypertension. Cerebrovascular disease. . Tracheostomy. Am putation above left knee. PEG tube placement. COMPARISON: [facility] [place], ABDOMEN KUB ONLY, 02/25/2017. [facility] [place], CHEST 1V SINGLE AP, 10/02/2018. [facility] [place], CHEST 1V SINGLE AP, 09/29/2018. [facility] [place], CTA PULMONARY W CONTRAST W 3D, 09/18/2018. . FINDINGS: Imaged portion of the lung bases demonstrate persistent airspace opacity involving the right lower l obe. The bowel gas pattern is unremarkable. Osseous structures appear grossly unremarkable. CONCLUSION: Persistent airspace consolidation involving the right lower lobe. Abdominal bowel gas pattern is norm al. Electronically signed by: Mary Gavin MD Board Certified Radiologist 10/02/2018 7:20 AM EST
--- NOTE | 2018-10-02 07:23 | XR ---
EXAM DATE: 10/02/2018 7:18 AM EST AGE/SEX: 68 years / Female INDICATIONS: Shortness of breath, possible pulmonary disease. CLINICAL DATA: This is the patient's subsequent encounter. Patient reports that signs and symptoms h ave been present for 2 weeks and indicates a pain score of Nonresponsive. MEDICAL/SURGICAL HISTORY: Hypertension. Diabetes. Cerebrovascular disease. . Tracheostomy. Am putation above left knee. PEG tube placement. COMPARISON: [facility] [place], CHEST 1V SINGLE AP, 09/29/2018. . FINDINGS: AP upright portable view of the chest demonstrates tracheostomy tube overlying the midline trachea. P ersistent airspace consolidation involving the right lower lobe. Remainder the lungs are clear. Heart size is normal. Pulmonary vasculature is normal. CONCLUSION: There is persistent airspace consolidation involving the right lower lobe. There is improved aeration on the current exam. Electronically signed by: Mary Gavin MD Board Certified Radiologist 10/02/2018 7:21 AM EST
[2018-10-02] MEDS ORDERED: Vancomycin Inj 1,500 MG in Sodium Chlor 0.9% Inj 250 ML IV.SIG ONE (08:00)
[2018-10-02] MEDS ORDERED: Vancomycin Inj 1,500 MG in Sodium Chlor 0.9% Inj 500 ML IV.SIG ONE (08:00)
[2018-10-02] MEDS: Enoxaparin Inj 60 MG/0.6 ML Syringe SQ SCH ×2 (08:12→20:03)
[2018-10-02] MEDS: Senna/Docusate Sodium 8.6/50 MG Tablet PO SCH ×2 (08:13→20:04)
[2018-10-02] MEDS: Chlorhexidine 0.12% Oral Kit 15 ML UDC OROPHARYNG SCH ×2 (08:13→20:04)
--- NOTE | 2018-10-02 13:41 | P.PNGI ---
Subjective Interval history: Patient awake and alert Nonverbal Trach and ventilated PEG tube feedings Glucerna 1.5 at 60 mL's per hour No obvious or reported bleeding <Yael Haines - Last Filed: 10/02/18 13:22> Physical Exam Vital signs: Vital Signs 10/01/18 13:25 10/01/18 14:00 10/01/18 15:00 Temperature Pulse Rate 115 H 116 H 109 H Respiratory Rate 17 18 17 Blood Pressure 109/59 L 105/55 L 102/63 Pulse Oximetry 98 97 97 10/01/18 15:18 10/01/18 16:00 10/01/18 16:56 Temperature 100.4 F H Pulse Rate 111 H 115 H Respiratory Rate 17 17 17 Blood Pressure 107/54 L Pulse Oximetry 96 98 10/01/18 17:00 10/01/18 18:00 10/01/18 19:00 Temperature Pulse Rate 109 H 113 H 112 H Respiratory Rate 19 25 H 45 H Blood Pressure 113/54 L 123/56 L 140/62 Pulse Oximetry 96 99 97 10/01/18 20:00 10/01/18 20:19 10/01/18 21:00 Temperature 98.4 F Pulse Rate 110 H 109 H 114 H Respiratory Rate 32 H 16 20 Blood Pressure 101/61 104/61 Pulse Oximetry 98 100 98 10/01/18 22:00 10/01/18 23:00 10/02/18 00:00 Temperature 100 F H Pulse Rate 119 H 118 H 124 H Respiratory Rate 25 H 17 22 Blood Pressure 106/76 101/55 L 106/64 Pulse Oximetry 99 97 98 10/02/18 00:20 10/02/18 00:24 10/02/18 01:00 Temperature Pulse Rate 112 H 125 H Respiratory Rate 16 19 26 H Blood Pressure 103/52 L Pulse Oximetry 98 98 10/02/18 02:00 10/02/18 03:00 10/02/18 04:00 Temperature Pulse Rate 128 H 126 H 128 H Respiratory Rate 24 24 31 H Blood Pressure 109/63 94/66 L Pulse Oximetry 97 97 100 10/02/18 04:01 10/02/18 04:07 10/02/18 04:13 Temperature Pulse Rate 127 H 127 H Respiratory Rate 38 H 20 35 H Blood Pressure 133/79 122/63 Pulse Oximetry 97 98 99 10/02/18 04:15 10/02/18 04:30 10/02/18 04:45 Temperature 100.6 F H Pulse Rate 128 H 128 H 126 H Respiratory Rate 38 H 36 H 41 H Blood Pressure 116/82 125/67 116/59 L Pulse Oximetry 99 98 98 10/02/18 05:00 10/02/18 05:15 10/02/18 05:30 Temperature 101.5 F H Pulse Rate 125 H 124 H 122 H Respiratory Rate 30 H 32 H 17 Blood Pressure 107/58 L 89/54 L 80/50 L Pulse Oximetry 98 98 98 10/02/18 05:34 10/02/18 05:45 10/02/18 06:00 Temperature Pulse Rate 124 H 119 H 123 H Respiratory Rate 24 30 H 42 H Blood Pressure 81/53 L 81/57 L 91/61 L Pulse Oximetry 97 98 98 10/02/18 06:15 10/02/18 06:30 10/02/18 06:45 Temperature Pulse Rate 119 H 118 H 121 H Respiratory Rate 47 H 34 H 45 H Blood Pressure 94/57 L 93/54 L 128/56 L Pulse Oximetry 98 98 100 10/02/18 07:00 10/02/18 07:15 10/02/18 07:30 Temperature Pulse Rate 116 H 115 H 115 H Respiratory Rate 41 H 39 H 48 H Blood Pressure 149/73 H 118/56 L 109/54 L Pulse Oximetry 98 98 100 10/02/18 07:33 10/02/18 07:40 10/02/18 07:45 Temperature Pulse Rate 108 H 110 H Respiratory Rate 25 H 18 34 H Blood Pressure 90/51 L Pulse Oximetry 99 100 10/02/18 08:00 10/02/18 08:06 10/02/18 08:15 Temperature 99.4 F Pulse Rate 107 H 106 H 108 H Respiratory Rate 13 19 19 Blood Pressure 67/34 L 104/54 L 113/56 L Pulse Oximetry 97 95 95 10/02/18 08:30 10/02/18 08:45 10/02/18 09:00 Temperature Pulse Rate 103 H 101 H 97 H Respiratory Rate 19 15 17 Blood Pressure 103/55 L 102/52 L 101/53 L Pulse Oximetry 96 96 97 10/02/18 09:15 10/02/18 09:30 10/02/18 09:45 Temperature Pulse Rate 95 H 97 H 100 H Respiratory Rate 18 18 32 H Blood Pressure 105/55 L 113/58 L 125/56 L Pulse Oximetry 98 99 99 10/02/18 10:00 10/02/18 10:15 10/02/18 10:30 Temperature Pulse Rate 104 H 108 H 107 H Respiratory Rate 43 H 40 H 36 H Blood Pressure 140/61 131/62 126/61 Pulse Oximetry 100 98 99 10/02/18 10:45 10/02/18 11:00 10/02/18 11:15 Temperature Pulse Rate 107 H 106 H 104 H Respiratory Rate 39 H 41 H 39 H Blood Pressure 125/59 L 125/62 123/61 Pulse Oximetry 98 99 98 10/02/18 11:30 10/02/18 11:33 10/02/18 11:45 Temperature Pulse Rate 98 H 99 H 99 H Respiratory Rate 34 H 28 H 21 Blood Pressure 109/59 L 110/58 L Pulse Oximetry 98 98 98 10/02/18 12:00 10/02/18 12:15 10/02/18 12:30 Temperature 98 F Pulse Rate 107 H 106 H 106 H Respiratory Rate 33 H 38 H 40 H Blood Pressure 124/65 115/60 126/65 Pulse Oximetry 98 95 97 Intake & Output 10/01/18 10/02/18 10/02/18 18:59 06:59 18:59 Intake Total 2077 / 2077 1200 / 1200 865 / 865 Output Total 50 / 50 Balance 2067 / 8 1150 / 1150 865 / 865 Weight 60.9 kg Intake: IV 615 / 615 Maxipime Inj 1,000 MG In NS Inj 100 / 100 100 ML @ 200 mls/hr IV.SIG Q8H [facility] Rx#:[id number] Vancomycin Inj 1,500 MG In NS 515 / 515 Inj 500 ML @ 257.5 mls/hr IV. SIG ONCE ONE Rx#:[id number] Tube Feeding 778 / 778 700 / 700 Water Bolus Amount 250 / 250 250 / 250 Free Water Amount 250 / 250 250 / 250 250 / 250 Intake (Blood Product) Amt 800 / 800 Rbc As-3 Leukoreduced Unit 400 / 400 [id number] Rbc As-3 Leukoreduced Unit 400 / 400 [id number] Output: Stool 50 / 50 Urine Amount (Catheter) Straight Other: # Incontinent Voids 3 Date of Last Bowel Movement 10/01/18 10/02/18 10/02/18 # Incontinent Bowel Movements 3 - Constitutional chronically ill appearing - Routine HEENT Exam Head: Present: normocephalic ENT: Present: mucous membranes moist - Routine Neck Exam Comments: Tracheostomy - Routine Respiratory Exam Present: patient mechanically ventilated, CTA bilaterally. Absent: respiratory distress Comments: Trach to mechanical ventilator - Routine Cardiovascular Exam Present: tachycardia Comments: 104-106 - Routine Abdominal Exam Present: normoactive bowel sounds, ostomy. Absent: tenderness, firm - Routine Skin Exam Present: dry, warm - Routine Neurological Exam Present: alert Awake Nonverbal Follows with eyes - Urinary Catheter Management Indwelling Temp Sensing Catheter Cath placed during this visit: yes, but has since been removed by the nurse Reason for continuing: Severe pressure ulcer/wound Insertion date: 09/18/18 Insertion time: 18:50 Removal date: 09/23/18 Removal time: 16:00 Female External Cath placed during this visit: no Straight Cath placed during this visit: no <Yael Haines - Last Filed: 10/02/18 13:22> Vital signs: Vital Signs 10/01/18 15:18 10/01/18 16:00 10/01/18 16:56 Temperature 100.4 F H Pulse Rate 111 H 115 H Respiratory Rate 17 17 17 Blood Pressure 107/54 L Pulse Oximetry 96 98 10/01/18 17:00 10/01/18 18:00 10/01/18 19:00 Temperature Pulse Rate 109 H 113 H 112 H Respiratory Rate 19 25 H 45 H Blood Pressure 113/54 L 123/56 L 140/62 Pulse Oximetry 96 99 97 10/01/18 20:00 10/01/18 20:19 10/01/18 21:00 Temperature 98.4 F Pulse Rate 110 H 109 H 114 H Respiratory Rate 32 H 16 20 Blood Pressure 101/61 104/61 Pulse Oximetry 98 100 98 10/01/18 22:00 10/01/18 23:00 10/02/18 00:00 Temperature 100 F H Pulse Rate 119 H 118 H 124 H Respiratory Rate 25 H 17 22 Blood Pressure 106/76 101/55 L 106/64 Pulse Oximetry 99 97 98 10/02/18 00:20 10/02/18 00:24 10/02/18 01:00 Temperature Pulse Rate 112 H 125 H Respiratory Rate 16 19 26 H Blood Pressure 103/52 L Pulse Oximetry 98 98 10/02/18 02:00 10/02/18 03:00 10/02/18 04:00 Temperature Pulse Rate 128 H 126 H 128 H Respiratory Rate 24 24 31 H Blood Pressure 109/63 94/66 L Pulse Oximetry 97 97 100 10/02/18 04:01 10/02/18 04:07 10/02/18 04:13 Temperature Pulse Rate 127 H 127 H Respiratory Rate 38 H 20 35 H Blood Pressure 133/79 122/63 Pulse Oximetry 97 98 99 10/02/18 04:15 10/02/18 04:30 10/02/18 04:45 Temperature 100.6 F H Pulse Rate 128 H 128 H 126 H Respiratory Rate 38 H 36 H 41 H Blood Pressure 116/82 125/67 116/59 L Pulse Oximetry 99 98 98 10/02/18 05:00 10/02/18 05:15 10/02/18 05:30 Temperature 101.5 F H Pulse Rate 125 H 124 H 122 H Respiratory Rate 30 H 32 H 17 Blood Pressure 107/58 L 89/54 L 80/50 L Pulse Oximetry 98 98 98 10/02/18 05:34 10/02/18 05:45 10/02/18 06:00 Temperature Pulse Rate 124 H 119 H 123 H Respiratory Rate 24 30 H 42 H Blood Pressure 81/53 L 81/57 L 91/61 L Pulse Oximetry 97 98 98 10/02/18 06:15 10/02/18 06:30 10/02/18 06:45 Temperature Pulse Rate 119 H 118 H 121 H Respiratory Rate 47 H 34 H 45 H Blood Pressure 94/57 L 93/54 L 128/56 L Pulse Oximetry 98 98 100 10/02/18 07:00 10/02/18 07:15 10/02/18 07:30 Temperature Pulse Rate 116 H 115 H 115 H Respiratory Rate 41 H 39 H 48 H Blood Pressure 149/73 H 118/56 L 109/54 L Pulse Oximetry 98 98 100 10/02/18 07:33 10/02/18 07:40 10/02/18 07:45 Temperature Pulse Rate 108 H 110 H Respiratory Rate 25 H 18 34 H Blood Pressure 90/51 L Pulse Oximetry 99 100 10/02/18 08:00 10/02/18 08:06 10/02/18 08:15 Temperature 99.4 F Pulse Rate 107 H 106 H 108 H Respiratory Rate 13 19 19 Blood Pressure 67/34 L 104/54 L 113/56 L Pulse Oximetry 97 95 95 10/02/18 08:30 10/02/18 08:45 10/02/18 09:00 Temperature Pulse Rate 103 H 101 H 97 H Respiratory Rate 19 15 17 Blood Pressure 103/55 L 102/52 L 101/53 L Pulse Oximetry 96 96 97 10/02/18 09:15 10/02/18 09:30 10/02/18 09:45 Temperature Pulse Rate 95 H 97 H 100 H Respiratory Rate 18 18 32 H Blood Pressure 105/55 L 113/58 L 125/56 L Pulse Oximetry 98 99 99 10/02/18 10:00 10/02/18 10:15 10/02/18 10:30 Temperature Pulse Rate 104 H 108 H 107 H Respiratory Rate 43 H 40 H 36 H Blood Pressure 140/61 131/62 126/61 Pulse Oximetry 100 98 99 10/02/18 10:45 10/02/18 11:00 10/02/18 11:15 Temperature Pulse Rate 107 H 106 H 104 H Respiratory Rate 39 H 41 H 39 H Blood Pressure 125/59 L 125/62 123/61 Pulse Oximetry 98 99 98 10/02/18 11:30 10/02/18 11:33 10/02/18 11:45 Temperature Pulse Rate 98 H 99 H 99 H Respiratory Rate 34 H 28 H 21 Blood Pressure 109/59 L 110/58 L Pulse Oximetry 98 98 98 10/02/18 12:00 10/02/18 12:15 10/02/18 12:30 Temperature 98 F Pulse Rate 107 H 106 H 106 H Respiratory Rate 33 H 38 H 40 H Blood Pressure 124/65 115/60 126/65 Pulse Oximetry 98 95 97 10/02/18 14:45 10/02/18 14:46 Temperature Pulse Rate 102 H Respiratory Rate 20 20 Blood Pressure Pulse Oximetry 99 Intake & Output 10/01/18 10/02/18 10/02/18 18:59 06:59 18:59 Intake Total 2077 1200 / 1200 865 / 865 Output Total 50 / 50 Balance 2067 1150 / 1150 865 / 865 Weight 60.9 kg Intake: IV 615 / 615 Maxipime Inj 1,000 MG In NS Inj 100 / 100 100 ML @ 200 mls/hr IV.SIG Q8H [facility] Rx#:[id number] Vancomycin Inj 1,500 MG In NS 515 / 515 Inj 500 ML @ 257.5 mls/hr IV. SIG ONCE ONE Rx#:[id number] Tube Feeding 778 / 778 700 / 700 Water Bolus Amount 250 / 250 250 / 250 Free Water Amount 250 / 250 250 / 250 250 / 250 Intake (Blood Product) Amt 800 / 800 Rbc As-3 Leukoreduced Unit 400 / 400 [id number] Rbc As-3 Leukoreduced Unit 400 / 400 [id number] Output: Stool 50 / 50 Urine Amount (Catheter) Straight Other: # Incontinent Voids 3 Date of Last Bowel Movement 10/01/18 10/02/18 10/02/18 # Incontinent Bowel Movements 3 - Urinary Catheter Management Indwelling Temp Sensing Catheter Cath placed during this visit: no Female External Cath placed during this visit: no Straight Cath placed during this visit: no <Jaron Cooper - Last Filed: 10/02/18 15:04> Results - Labs CBC & Chem 7: 10/02/18 05:20 10/02/18 05:20 Laboratory Results - last 24 hr 10/01/18 10/01/18 10/01/18 03:22 14:20 16:10 WBC RBC Hgb Hct MCV MCH MCHC RDW Plt Count MPV Neut % (Auto) Lymph % (Auto) [place] % (Auto) Eos % (Auto) Baso % (Auto) Neut # (Auto) Lymph # (Auto) [place] # (Auto) Eos # (Auto) Baso # (Auto) WBC Differential Differential Comment Sodium Potassium Chloride Carbon Dioxide Anion Gap BUN Creatinine Estimated GFR POC Glucose Random Glucose Calcium Phosphorus Magnesium Total Bilirubin AST ALT Alkaline Phosphatase Total Protein Albumin Urine Color Yellow Urine Clarity Hazy H Urine pH 5.0 Ur Specific [place] 1.024 Urine Protein 30 H Urine Glucose (UA) Negative Urine Ketones Negative Urine Occult Blood Negative Urine Nitrate Negative Urine Bilirubin Negative Urine Urobilinogen Less than 2 Ur Leukocyte Esterase Trace H Urine WBC 4 Ur Squamous Epith Cells <1 Granular Casts 1 Urine Mucus Few H Ur Microscopic Review Not Reportable Stl C.difficile DNA Amp Negative St C. diff Tox Epid 027 Negative MTS Gel Crossmatch See Detail 10/01/18 10/01/18 10/01/18 16:50 18:16 23:54 WBC RBC Hgb 10.3 L D Hct 32.7 L MCV MCH MCHC RDW Plt Count MPV Neut % (Auto) Lymph % (Auto) [place] % (Auto) Eos % (Auto) Baso % (Auto) Neut # (Auto) Lymph # (Auto) [place] # (Auto) Eos # (Auto) Baso # (Auto) WBC Differential Differential Comment Sodium Potassium Chloride Carbon Dioxide Anion Gap BUN Creatinine Estimated GFR POC Glucose 145 H 148 H Random Glucose Calcium Phosphorus Magnesium Total Bilirubin AST ALT Alkaline Phosphatase Total Protein Albumin Urine Color Urine Clarity Urine pH Ur Specific [place] Urine Protein Urine Glucose (UA) Urine Ketones Urine Occult Blood Urine Nitrate Urine Bilirubin Urine Urobilinogen Ur Leukocyte Esterase Urine WBC Ur Squamous Epith Cells Granular Casts Urine Mucus Ur Microscopic Review Stl C.difficile DNA Amp St C. diff Tox Epid 027 MTS Gel Crossmatch 10/02/18 10/02/18 10/02/18 05:20 05:20 06:03 WBC 12.9 H RBC 3.90 L Hgb 9.7 L Hct 30.9 L MCV 79.0 L MCH 24.9 L MCHC 31.5 L RDW 20.1 H Plt Count 244 MPV 9.5 Neut % (Auto) 85.2 H Lymph % (Auto) 5.4 L [place] % (Auto) 5.5 Eos % (Auto) 3.5 Baso % (Auto) 0.4 Neut # (Auto) 11.0 H Lymph # (Auto) 0.7 L [place] # (Auto) 0.7 Eos # (Auto) 0.4 Baso # (Auto) 0.1 WBC Differential . Differential Comment Auto diff final Sodium 142 Potassium 4.1 Chloride 110 H Carbon Dioxide 24.7 Anion Gap 7 BUN 23 H Creatinine 0.76 Estimated GFR Greater than 89 POC Glucose 140 H Random Glucose 125 H Calcium 8.4 L Phosphorus 3.1 Magnesium 2.7 H Total Bilirubin 0.5 AST 19 ALT 25 Alkaline Phosphatase 113 Total Protein 7.7 Albumin 2.2 L Urine Color Urine Clarity Urine pH Ur Specific [place] Urine Protein Urine Glucose (UA) Urine Ketones Urine Occult Blood Urine Nitrate Urine Bilirubin Urine Urobilinogen Ur Leukocyte Esterase Urine WBC Ur Squamous Epith Cells Granular Casts Urine Mucus Ur Microscopic Review Stl C.difficile DNA Amp St C. diff Tox Epid 027 MTS Gel Crossmatch 10/02/18 11:18 WBC RBC Hgb Hct MCV MCH MCHC RDW Plt Count MPV Neut % (Auto) Lymph % (Auto) [place] % (Auto) Eos % (Auto) Baso % (Auto) Neut # (Auto) Lymph # (Auto) [place] # (Auto) Eos # (Auto) Baso # (Auto) WBC Differential Differential Comment Sodium Potassium Chloride Carbon Dioxide Anion Gap BUN Creatinine Estimated GFR POC Glucose 116 H Random Glucose Calcium Phosphorus Magnesium Total Bilirubin AST ALT Alkaline Phosphatase Total Protein Albumin Urine Color Urine Clarity Urine pH Ur Specific [place] Urine Protein Urine Glucose (UA) Urine Ketones Urine Occult Blood Urine Nitrate Urine Bilirubin Urine Urobilinogen Ur Leukocyte Esterase Urine WBC Ur Squamous Epith Cells Granular Casts Urine Mucus Ur Microscopic Review Stl C.difficile DNA Amp St C. diff Tox Epid 027 MTS Gel Crossmatch Microbiology 10/01/18 13:00 Sputum - Endotracheal Gram Stain - Final 10/01/18 13:00 Sputum - Endotracheal Sputum Culture - Preliminary Immature growth - reincubate 10/01/18 16:10 Stool Enteric Pathogens (PCR) - Final 10/01/18 16:57 Blood - Peripheral Aerobic Blood Culture - Preliminary No growth in 1 day 10/01/18 16:57 Blood - Peripheral Anaerobic Blood Culture - Preliminary No growth in 1 day 10/01/18 16:50 Blood - Peripheral Aerobic Blood Culture - Preliminary No growth in 1 day 10/01/18 16:50 Blood - Peripheral Anaerobic Blood Culture - Preliminary No growth in 1 day 10/01/18 16:10 Stool Stool for WBCs - Final 09/28/18 15:30 Clean Catch Urine Urine Culture - Final No growth in 48 hours - Imaging Impressions Venous Doppler Study 10/01/18 00:00 CONCLUSION: 1. Superficial venous thrombosis identified in the right cephalic vein. 2. No evidence of DVT. Abdomen X-Ray 10/02/18 06:48 CONCLUSION: Persistent airspace consolidation involving the right lower lobe. Abdominal bowel gas pattern is normal. Chest X-Ray 10/02/18 06:48 CONCLUSION: There is persistent airspace consolidation involving the right lower lobe. There is improved aeration on the current exam. <Haines,Yael - Last Filed: 10/02/18 13:22> - Labs CBC & Chem 7: 10/02/18 05:20 10/02/18 05:20 Laboratory Results - last 24 hr 10/01/18 10/01/18 10/01/18 03:22 14:20 16:10 WBC RBC Hgb Hct MCV MCH MCHC RDW Plt Count MPV Neut % (Auto) Lymph % (Auto) [place] % (Auto) Eos % (Auto) Baso % (Auto) Neut # (Auto) Lymph # (Auto) [place] # (Auto) Eos # (Auto) Baso # (Auto) WBC Differential Differential Comment Sodium Potassium Chloride Carbon Dioxide Anion Gap BUN Creatinine Estimated GFR POC Glucose Random Glucose Calcium Phosphorus Magnesium Total Bilirubin AST ALT Alkaline Phosphatase Total Protein Albumin Urine Color Yellow Urine Clarity Hazy H Urine pH 5.0 Ur Specific [place] 1.024 Urine Protein 30 H Urine Glucose (UA) Negative Urine Ketones Negative Urine Occult Blood Negative Urine Nitrate Negative Urine Bilirubin Negative Urine Urobilinogen Less than 2 Ur Leukocyte Esterase Trace H Urine WBC 4 Ur Squamous Epith Cells <1 Granular Casts 1 Urine Mucus Few H Ur Microscopic Review Not Reportable Stl C.difficile DNA Amp Negative St C. diff Tox Epid 027 Negative MTS Gel Crossmatch See Detail 10/01/18 10/01/18 10/01/18 16:50 18:16 23:54 WBC RBC Hgb 10.3 L D Hct 32.7 L MCV MCH MCHC RDW Plt Count MPV Neut % (Auto) Lymph % (Auto) [place] % (Auto) Eos % (Auto) Baso % (Auto) Neut # (Auto) Lymph # (Auto) [place] # (Auto) Eos # (Auto) Baso # (Auto) WBC Differential Differential Comment Sodium Potassium Chloride Carbon Dioxide Anion Gap BUN Creatinine Estimated GFR POC Glucose 145 H 148 H Random Glucose Calcium Phosphorus Magnesium Total Bilirubin AST ALT Alkaline Phosphatase Total Protein Albumin Urine Color Urine Clarity Urine pH Ur Specific [place] Urine Protein Urine Glucose (UA) Urine Ketones Urine Occult Blood Urine Nitrate Urine Bilirubin Urine Urobilinogen Ur Leukocyte Esterase Urine WBC Ur Squamous Epith Cells Granular Casts Urine Mucus Ur Microscopic Review Stl C.difficile DNA Amp St C. diff Tox Epid 027 MTS Gel Crossmatch 10/02/18 10/02/18 10/02/18 05:20 05:20 06:03 WBC 12.9 H RBC 3.90 L Hgb 9.7 L Hct 30.9 L MCV 79.0 L MCH 24.9 L MCHC 31.5 L RDW 20.1 H Plt Count 244 MPV 9.5 Neut % (Auto) 85.2 H Lymph % (Auto) 5.4 L [place] % (Auto) 5.5 Eos % (Auto) 3.5 Baso % (Auto) 0.4 Neut # (Auto) 11.0 H Lymph # (Auto) 0.7 L [place] # (Auto) 0.7 Eos # (Auto) 0.4 Baso # (Auto) 0.1 WBC Differential . Differential Comment Auto diff final Sodium 142 Potassium 4.1 Chloride 110 H Carbon Dioxide 24.7 Anion Gap 7 BUN 23 H Creatinine 0.76 Estimated GFR Greater than 89 POC Glucose 140 H Random Glucose 125 H Calcium 8.4 L Phosphorus 3.1 Magnesium 2.7 H Total Bilirubin 0.5 AST 19 ALT 25 Alkaline Phosphatase 113 Total Protein 7.7 Albumin 2.2 L Urine Color Urine Clarity Urine pH Ur Specific [place] Urine Protein Urine Glucose (UA) Urine Ketones Urine Occult Blood Urine Nitrate Urine Bilirubin Urine Urobilinogen Ur Leukocyte Esterase Urine WBC Ur Squamous Epith Cells Granular Casts Urine Mucus Ur Microscopic Review Stl C.difficile DNA Amp St C. diff Tox Epid 027 MTS Gel Crossmatch 10/02/18 11:18 WBC RBC Hgb Hct MCV MCH MCHC RDW Plt Count MPV Neut % (Auto) Lymph % (Auto) [place] % (Auto) Eos % (Auto) Baso % (Auto) Neut # (Auto) Lymph # (Auto) [place] # (Auto) Eos # (Auto) Baso # (Auto) WBC Differential Differential Comment Sodium Potassium Chloride Carbon Dioxide Anion Gap BUN Creatinine Estimated GFR POC Glucose 116 H Random Glucose Calcium Phosphorus Magnesium Total Bilirubin AST ALT Alkaline Phosphatase Total Protein Albumin Urine Color Urine Clarity Urine pH Ur Specific [place] Urine Protein Urine Glucose (UA) Urine Ketones Urine Occult Blood Urine Nitrate Urine Bilirubin Urine Urobilinogen Ur Leukocyte Esterase Urine WBC Ur Squamous Epith Cells Granular Casts Urine Mucus Ur Microscopic Review Stl C.difficile DNA Amp St C. diff Tox Epid 027 MTS Gel Crossmatch Microbiology 10/01/18 13:00 Sputum - Endotracheal Gram Stain - Final 10/01/18 13:00 Sputum - Endotracheal Sputum Culture - Preliminary Immature growth - reincubate 10/01/18 16:10 Stool Enteric Pathogens (PCR) - Final 10/01/18 16:57 Blood - Peripheral Aerobic Blood Culture - Preliminary No growth in 1 day 10/01/18 16:57 Blood - Peripheral Anaerobic Blood Culture - Preliminary No growth in 1 day 10/01/18 16:50 Blood - Peripheral Aerobic Blood Culture - Preliminary No growth in 1 day 10/01/18 16:50 Blood - Peripheral Anaerobic Blood Culture - Preliminary No growth in 1 day 10/01/18 16:10 Stool Stool for WBCs - Final - Imaging Impressions Abdomen X-Ray 10/02/18 06:48 CONCLUSION: Persistent airspace consolidation involving the right lower lobe. Abdominal bowel gas pattern is normal. Chest X-Ray 10/02/18 06:48 CONCLUSION: There is persistent airspace consolidation involving the right lower lobe. There is improved aeration on the current exam. <Jaron Cooper - Last Filed: 10/02/18 15:04> Assessment and Plan (1) Anemia Status: Acute Code(s): D64.9 - Anemia, unspecified - Plan This patient is a 68-year-old female with past medical history significant for CVA, left AKA, acute respiratory failure, diabetes, dysphagia, hypertension, hemiparesis, hemiplegia and hypoxia. Surgical history significant for PEG tube placement, tracheostomy and left above-knee amputation. Patient presented to [facility] emergency room via EMS for reported hypoxemia. Of note, patient was on home hospice prior to arrival. Upon arrival, patient was intubated by ER attending for protection of airway. Our service has been consulted to evaluate patient for worsening anemia requiring blood transfusion. Patient is currently being cared for in the critical care setting post tracheostomy placement, patient mechanically ventilated. Temperature 101.5 this a.m. sinus tach on telemetry monitor. Patient presently having loose watery stools, dignity shield applied with noted liquid brown stool present. ICU nurse reports no obvious noted bleeding. Hemoglobin 6.7 hematocrit 23.9. Patient currently receiving 1st of 2 units of packed RBCs for transfusion. Upon exam, estimated 5 x 5 cm hematoma to the left lower quadrant of abdomen. Left upper extremity phlebitis noted. Patient currently receiving Lovenox 60 mg subcutaneously every 12 hours. Anemia-requiring blood transfusion- Microcytic anemia olivialey chronic 68-year-old female admitted to [facility] for hypoxemia mental status changes. Patient intubated upon arrival. Our service has been consulted for worsening anemia now requiring blood transfusion of 2 units packed RBCs. There have been no obvious signs of bleeding reported. Patient presently trach and ventilated FiO2 35%. PEG tube with Glucerna at 60 mL's per hour. Abdomen soft with bowel sounds present, ~5 x 5 cm hematoma left lower quadrant. Patient currently receiving Lovenox 60 mg subcutaneous every 12 hours. -Hemoglobin 6.7 hematocrit 23.9 WBC 11.7 platelet count 242 -Total bilirubin 0.3 AST 18 ALT 25 alk phos 103 10/02/2018 Patient awake and alert Nonverbal Mechanically ventilated via trach-on no sedation No reported or active bleeding noted-hemoglobin 9.7 hematocrit 30.9 from 10.3 and 32.7 Slight rising BUN with stable creatinine may be indicative of upper GI bleeding possible dilated specimen value 6.7 on 10/01/2018 Dignity shield noted liquid brown stool present KUB: Persistent airspace consolidation involving the right lower lobe. Abdominal bowel gas pattern is normal. Nurse reports no PEG tube feeding residuals Plan -Hold tube feedings after midnight 10/04/2018 -Monitor for active bleeding -Plan of care per critical care medicine -Monitor hemoglobin and hematocrit closely -Transfuse as needed -Pantoprazole 40 mg IV every 12 -Palliative following -Stool studies pending -Obtain consent for EGD and colonoscopy (planning for 10/04/2018) -GoLYTELY prep (10/03/2018 @ 1600) -Supportive care -Further recommendations to follow This patient has been seen by myself and Dr. Cooper this note is written on his behalf - Attending Attestation Dr. Cooper <Yael Haines - Last Filed: 10/02/18 13:22> (1) Anemia Status: Acute Code(s): D64.9 - Anemia, unspecified - Attending Attestation I have seen and examined the patient and reviewed the patients care with the [employer]. I agree with the above assessment and recommendations as documented above. <Jaron Cooper - Last Filed: 10/02/18 15:04>
[2018-10-02] MEDS ORDERED: PEG 3350/E-Lyte Soln 4000 ML Bottle G-TUBE ONE (16:00)
--- NOTE | 2018-10-02 17:03 | P.PNPL ---
Subjective Interval history: 68 YOAA female who was with Hospice svc, now rescended Had Trach Low grade fever off sedation Awake, does't track Tolerates TF Physical Exam Vital signs: Vital Signs 10/01/18 18:00 10/01/18 19:00 10/01/18 20:00 Temperature 98.4 F Pulse Rate 113 H 112 H 110 H Respiratory Rate 25 H 45 H 32 H Blood Pressure 123/56 L 140/62 101/61 Pulse Oximetry 99 97 98 10/01/18 20:19 10/01/18 21:00 10/01/18 22:00 Temperature Pulse Rate 109 H 114 H 119 H Respiratory Rate 16 20 25 H Blood Pressure 104/61 106/76 Pulse Oximetry 100 98 99 10/01/18 23:00 10/02/18 00:00 10/02/18 00:20 Temperature 100 F H Pulse Rate 118 H 124 H Respiratory Rate 17 22 16 Blood Pressure 101/55 L 106/64 Pulse Oximetry 97 98 98 10/02/18 00:24 10/02/18 01:00 10/02/18 02:00 Temperature Pulse Rate 112 H 125 H 128 H Respiratory Rate 19 26 H 24 Blood Pressure 103/52 L 109/63 Pulse Oximetry 98 97 10/02/18 03:00 10/02/18 04:00 10/02/18 04:01 Temperature Pulse Rate 126 H 128 H 127 H Respiratory Rate 24 31 H 38 H Blood Pressure 94/66 L 133/79 Pulse Oximetry 97 100 97 10/02/18 04:07 10/02/18 04:13 10/02/18 04:15 Temperature Pulse Rate 127 H 128 H Respiratory Rate 20 35 H 38 H Blood Pressure 122/63 116/82 Pulse Oximetry 98 99 99 10/02/18 04:30 10/02/18 04:45 10/02/18 05:00 Temperature 100.6 F H Pulse Rate 128 H 126 H 125 H Respiratory Rate 36 H 41 H 30 H Blood Pressure 125/67 116/59 L 107/58 L Pulse Oximetry 98 98 98 10/02/18 05:15 10/02/18 05:30 10/02/18 05:34 Temperature 101.5 F H Pulse Rate 124 H 122 H 124 H Respiratory Rate 32 H 17 24 Blood Pressure 89/54 L 80/50 L 81/53 L Pulse Oximetry 98 98 97 10/02/18 05:45 10/02/18 06:00 10/02/18 06:15 Temperature Pulse Rate 119 H 123 H 119 H Respiratory Rate 30 H 42 H 47 H Blood Pressure 81/57 L 91/61 L 94/57 L Pulse Oximetry 98 98 98 10/02/18 06:30 10/02/18 06:45 10/02/18 07:00 Temperature Pulse Rate 118 H 121 H 116 H Respiratory Rate 34 H 45 H 41 H Blood Pressure 93/54 L 128/56 L 149/73 H Pulse Oximetry 98 100 98 10/02/18 07:15 10/02/18 07:30 10/02/18 07:33 Temperature Pulse Rate 115 H 115 H Respiratory Rate 39 H 48 H 25 H Blood Pressure 118/56 L 109/54 L Pulse Oximetry 98 100 99 10/02/18 07:40 10/02/18 07:45 10/02/18 08:00 Temperature 99.4 F Pulse Rate 108 H 110 H 107 H Respiratory Rate 18 34 H 13 Blood Pressure 90/51 L 67/34 L Pulse Oximetry 100 97 10/02/18 08:06 10/02/18 08:15 10/02/18 08:30 Temperature Pulse Rate 106 H 108 H 103 H Respiratory Rate 19 19 19 Blood Pressure 104/54 L 113/56 L 103/55 L Pulse Oximetry 95 95 96 10/02/18 08:45 10/02/18 09:00 10/02/18 09:15 Temperature Pulse Rate 101 H 97 H 95 H Respiratory Rate 15 17 18 Blood Pressure 102/52 L 101/53 L 105/55 L Pulse Oximetry 96 97 98 10/02/18 09:30 10/02/18 09:45 10/02/18 10:00 Temperature Pulse Rate 97 H 100 H 104 H Respiratory Rate 18 32 H 43 H Blood Pressure 113/58 L 125/56 L 140/61 Pulse Oximetry 99 99 100 10/02/18 10:15 10/02/18 10:30 10/02/18 10:45 Temperature Pulse Rate 108 H 107 H 107 H Respiratory Rate 40 H 36 H 39 H Blood Pressure 131/62 126/61 125/59 L Pulse Oximetry 98 99 98 10/02/18 11:00 10/02/18 11:15 10/02/18 11:30 Temperature Pulse Rate 106 H 104 H 98 H Respiratory Rate 41 H 39 H 34 H Blood Pressure 125/62 123/61 109/59 L Pulse Oximetry 99 98 98 10/02/18 11:33 10/02/18 11:45 10/02/18 12:00 Temperature 98 F Pulse Rate 99 H 99 H 107 H Respiratory Rate 28 H 21 33 H Blood Pressure 110/58 L 124/65 Pulse Oximetry 98 98 98 10/02/18 12:15 10/02/18 12:30 10/02/18 12:45 Temperature Pulse Rate 106 H 106 H 105 H Respiratory Rate 38 H 40 H 41 H Blood Pressure 115/60 126/65 123/64 Pulse Oximetry 95 97 95 10/02/18 13:00 10/02/18 13:15 10/02/18 13:30 Temperature Pulse Rate 107 H 107 H 108 H Respiratory Rate 41 H 42 H 47 H Blood Pressure 134/66 131/70 134/74 Pulse Oximetry 99 99 98 10/02/18 13:45 10/02/18 14:00 10/02/18 14:16 Temperature Pulse Rate 109 H 109 H 107 H Respiratory Rate 24 26 H 19 Blood Pressure 138/81 129/61 114/68 Pulse Oximetry 99 99 98 10/02/18 14:30 10/02/18 14:45 10/02/18 14:46 Temperature Pulse Rate 112 H 102 H 117 H Respiratory Rate 24 20 37 H Blood Pressure 123/72 148/71 H Pulse Oximetry 98 99 10/02/18 15:00 10/02/18 15:15 10/02/18 15:30 Temperature Pulse Rate 110 H 109 H 116 H Respiratory Rate 16 30 H 45 H Blood Pressure 117/59 L 132/68 127/69 Pulse Oximetry 97 98 98 10/02/18 15:45 10/02/18 16:00 10/02/18 16:16 Temperature 98.4 F Pulse Rate 120 H 116 H 119 H Respiratory Rate 38 H 33 H 39 H Blood Pressure 160/74 H 143/62 H 123/80 Pulse Oximetry 97 98 98 Intake & Output 10/01/18 10/02/18 10/02/18 18:59 06:59 18:59 Intake Total 2077 1200 / 1200 965 / 965 Output Total 50 / 50 Balance 2067 1150 / 1150 965 / 965 Weight 60.9 kg Intake: IV 715 / 715 Maxipime Inj 1,000 MG In NS Inj 200 / 200 100 ML @ 200 mls/hr IV.SIG Q8H JORGE Rx#:[id number] Vancomycin Inj 1,500 MG In NS 515 / 515 Inj 500 ML @ 257.5 mls/hr IV. SIG ONCE ONE Rx#:[id number] Tube Feeding 778 / 778 700 / 700 Water Bolus Amount 250 / 250 250 / 250 Free Water Amount 250 / 250 250 / 250 250 / 250 Intake (Blood Product) Amt 800 / 800 Rbc As-3 Leukoreduced Unit 400 / 400 [id number] Rbc As-3 Leukoreduced Unit 400 / 400 [id number] Output: Stool 50 / 50 Urine Amount (Catheter) Straight Other: # Incontinent Voids 3 Date of Last Bowel Movement 10/01/18 10/02/18 10/02/18 # Incontinent Bowel Movements 3 GENERAL: Elderly Aa female on Vent SKIN: Warm and dry. HEAD: Normocephalic. EYES: No scleral icterus. No injection or drainage. NECK: Supple, trachea midline. No JVD or lymphadenopathy. Trach CARDIOVASCULAR: Regular rate and rhythm without murmurs, gallops, or rubs. RESPIRATORY: Breath sounds equal bilaterally. No accessory muscle use. GASTROINTESTINAL: Abdomen soft, non-tender, nondistended. has PEG MUSCULOSKELETAL: No cyanosis, or edema. Left AKA BACK: Nontender without obvious deformity. No CVA tenderness. - Urinary Catheter Management Indwelling Temp Sensing Catheter Cath placed during this visit: yes, but has since been removed by the nurse Reason for continuing: Severe pressure ulcer/wound Insertion date: 09/18/18 Insertion time: 18:50 Removal date: 09/23/18 Removal time: 16:00 Female External Cath placed during this visit: no Straight Cath placed during this visit: no Assessment and Plan - Plan IMPRESSION: VDRF large Rt lung mass COPD HTN H/O CVA PLAN: Cont vent support PRVC-AC Aerosol nebs IV Solumedrol Cont Abx Trach care. Plans for Colonoscopy in AM
[2018-10-03] MEDS: dilTIAZem 30 MG Tablet PO SCH ×4 (03:48→22:30)
[2018-10-03] MEDS: Oral Hygiene Kit OROPHARYNG SCH ×3 (03:48→15:12)
[2018-10-03] MEDS: Insulin NovoLIN Regular Correctional Sugar Inj SQ SCH ×3 (06:00→18:36)
[2018-10-03 07:28] LABS: Baso # (Auto) 0.1 th/mm3 (0.0-0.2); Baso % (Auto) 0.7 % (0.0-2.0); Eos # (Auto) 0.6 th/mm3 (0.0-0.4); Eos % (Auto) 6.3 % (0.0-4.0); Hematocrit 30.4 % (35.0-46.0); Hemoglobin 9.5 gm/dL (11.6-15.3); Lymph # (Auto) 0.7 th/mm3 (1.0-4.8); Lymph % (Auto) 7.4 % (9.0-44.0); Mean Corpuscular HGB Conc 31.3 % (32.0-36.0); Mean Corpuscular Hemoglobin 25.3 pg (27.0-34.0); Mean Corpuscular Volume 80.7 fL (80.0-100.0); Mean Platelet Volume 9.5 fL (7.0-11.0); Mono # (Auto) 0.3 th/mm3 (0.0-0.9); Mono % (Auto) 3.8 % (0.0-8.0); Neut # (Auto) 7.2 th/mm3 (1.8-7.7); Neut % (Auto) 81.8 % (16.0-70.0); Platelet Count 235 th/mm3 (150-450); Red Blood Count 3.76 mil/mm3 (4.00-5.30); Red Cell Distribution Width 20.7 % (11.6-17.2); White Blood Count 8.8 th/mm3 (4.0-11.0)
--- NOTE | 2018-10-03 07:28 | P.PNCC ---
Subjective Subjective Remarks/Hospital Course: 09/18: 68-year-old female past medical history of stroke, left BKA, who was on home hospice until just prior to arrival, presents for an evaluation of fever and altered mental status. According to EMS the patient had not required oxygen until beginning of this week when she had gradual increased demand of her oxygen. End-tidal CO2 prior to arrival was 6. Initial room nasal cannula saturation was 91, she was placed on nonrebreather position of comfort and transfer to emergency department. EMS related that the had elected to revoke the patient's DNR and hospice care prior to transferring her to the hospital. The patient apparently is normally a GCS of 14, apparently she does take some thickened food p.o. department the patient was severely altered with GCS of 6 on arrival [id number] and was intubated by ED attending for an airway protection. 09/19: Remains sedated, orally intubated on mechanical ventilation. CT chest showed right lower lobe lung mass suspicious for malignancy. Patient has a PEG tube following previous stroke. 09/20: Remains sedated, orally intubated on mechanical ventilation. Started on tube feeds. 09/21: Remains sedated, orally intubated on mechanical ventilation. Tolerating tube feeds. Right approximately swelling noted. 09/22 Is not tolerating CPAP trial when decrease PS below 18. Daughter at bedside, says will be here later. Says they don't think they want to proceed with lung biopsy at this time, but on the other hand she discusses the possibility of re-do trach. She says they are not sure how to proceed. I suggested we meet together. Daughter states she has been bedridden since stroke about 4 years ago. Has been in snf. PEG due to dysphagia, does not eat. Speaks a little but daughter states she has declined significantly over the last 2 weeks. 09/23 No significant change. Patient does not tolerate CPAP. Family is very clear that they do not wish to pursue biopsy or diagnosis of suspected lung cancer. At this time, they wish to continue supportive care with vent and FULL CODE. 09/24 No change. Does not tolerate CPAP. Will diurese for positive fluid balance. 09/25 Now on CPAP 20/5 and not tolerating wean. Continue attempts at diuresis to address positive fluid balance since admission 09/26: Remains sedated, orally intubated on mechanical ventilation. Hold CPAP trials yesterday 09/27 Patient is sedated with Diprivan and intubated. Tolerating tube feeds. Afebrile. 09/28 Patient remains intubated and sedated. T;100.8 09/29 Has not made any progress towards weaning. Family offered comfort measures however they expressed desire to proceed with trach Subjective: 09/30 status post bedside tracheostomy yesterday by Dr. Gavin. Discontinued propofol drip. On CPAP 14/5 for 2 hours today. BP is low, will need to hold metoprolol and titrate back on cardizem (nurses held some doses yesterday too). Positive fluid balance but not able to diurese today due to low BP. Awaiting bed at [facility]. 10/01 Patient remains on ventilator via trach. On no sedation. Hgb 6.7 this morning and T: 100.4 at midnight. Tachycardic. 10/02 Patient is on ventilator via trach. On no sedation. Spiked fever with T: 101.5. s/p transfusion 2u PRBC yesterday. Mcmillan/thick secretions noted per nursing staff. 10/03 Patient had low grade fever with T:100.4 last night. Tube feeds held for abd distention. KUB yesterday showed normal bowel gas pattern. Objective Vital Signs / I&O: Vital Signs 10/02/18 07:30 10/02/18 07:33 10/02/18 07:40 Temperature Pulse Rate 115 H 108 H Respiratory Rate 48 H 25 H 18 Blood Pressure 109/54 L Pulse Oximetry 100 99 10/02/18 07:45 10/02/18 08:00 10/02/18 08:06 Temperature 99.4 F Pulse Rate 110 H 107 H 106 H Respiratory Rate 34 H 13 19 Blood Pressure 90/51 L 67/34 L 104/54 L Pulse Oximetry 100 97 95 10/02/18 08:15 10/02/18 08:30 10/02/18 08:45 Temperature Pulse Rate 108 H 103 H 101 H Respiratory Rate 19 19 15 Blood Pressure 113/56 L 103/55 L 102/52 L Pulse Oximetry 95 96 96 10/02/18 09:00 10/02/18 09:15 10/02/18 09:30 Temperature Pulse Rate 97 H 95 H 97 H Respiratory Rate 17 18 18 Blood Pressure 101/53 L 105/55 L 113/58 L Pulse Oximetry 97 98 99 10/02/18 09:45 10/02/18 10:00 10/02/18 10:15 Temperature Pulse Rate 100 H 104 H 108 H Respiratory Rate 32 H 43 H 40 H Blood Pressure 125/56 L 140/61 131/62 Pulse Oximetry 99 100 98 10/02/18 10:30 10/02/18 10:45 10/02/18 11:00 Temperature Pulse Rate 107 H 107 H 106 H Respiratory Rate 36 H 39 H 41 H Blood Pressure 126/61 125/59 L 125/62 Pulse Oximetry 99 98 99 10/02/18 11:15 10/02/18 11:30 10/02/18 11:33 Temperature Pulse Rate 104 H 98 H 99 H Respiratory Rate 39 H 34 H 28 H Blood Pressure 123/61 109/59 L Pulse Oximetry 98 98 98 10/02/18 11:45 10/02/18 12:00 10/02/18 12:15 Temperature 98 F Pulse Rate 99 H 107 H 106 H Respiratory Rate 21 33 H 38 H Blood Pressure 110/58 L 124/65 115/60 Pulse Oximetry 98 98 95 10/02/18 12:30 10/02/18 12:45 10/02/18 13:00 Temperature Pulse Rate 106 H 105 H 107 H Respiratory Rate 40 H 41 H 41 H Blood Pressure 126/65 123/64 134/66 Pulse Oximetry 97 95 99 10/02/18 13:15 10/02/18 13:30 10/02/18 13:45 Temperature Pulse Rate 107 H 108 H 109 H Respiratory Rate 42 H 47 H 24 Blood Pressure 131/70 134/74 138/81 Pulse Oximetry 99 98 99 10/02/18 14:00 10/02/18 14:16 10/02/18 14:30 Temperature Pulse Rate 109 H 107 H 112 H Respiratory Rate 26 H 19 24 Blood Pressure 129/61 114/68 123/72 Pulse Oximetry 99 98 98 10/02/18 14:45 10/02/18 14:46 10/02/18 15:00 Temperature Pulse Rate 102 H 117 H 110 H Respiratory Rate 20 37 H 16 Blood Pressure 148/71 H 117/59 L Pulse Oximetry 99 97 10/02/18 15:15 10/02/18 15:30 10/02/18 15:45 Temperature Pulse Rate 109 H 116 H 120 H Respiratory Rate 30 H 45 H 38 H Blood Pressure 132/68 127/69 160/74 H Pulse Oximetry 98 98 97 10/02/18 16:00 10/02/18 16:16 10/02/18 16:30 Temperature 98.4 F Pulse Rate 116 H 119 H 117 H Respiratory Rate 33 H 39 H 28 H Blood Pressure 143/62 H 123/80 152/68 H Pulse Oximetry 98 98 98 10/02/18 16:45 10/02/18 17:00 10/02/18 17:15 Temperature Pulse Rate 119 H 107 H 112 H Respiratory Rate 23 16 19 Blood Pressure 142/70 H 114/55 L 153/66 H Pulse Oximetry 98 100 98 10/02/18 17:30 10/02/18 17:45 10/02/18 18:00 Temperature Pulse Rate 125 H 121 H 115 H Respiratory Rate 44 H 21 16 Blood Pressure 175/82 H 146/67 H 116/56 L Pulse Oximetry 98 100 100 10/02/18 18:15 10/02/18 18:30 10/02/18 18:45 Temperature Pulse Rate 117 H 115 H 119 H Respiratory Rate 16 16 20 Blood Pressure 119/57 L 122/58 L 164/78 H Pulse Oximetry 99 99 98 10/02/18 19:00 10/02/18 19:01 10/02/18 19:15 Temperature Pulse Rate 118 H 119 H 121 H Respiratory Rate 23 25 H 31 H Blood Pressure 135/62 161/68 H Pulse Oximetry 99 99 98 10/02/18 19:30 10/02/18 19:45 10/02/18 20:00 Temperature 100.4 F H Pulse Rate 112 H 112 H 107 H Respiratory Rate 16 16 16 Blood Pressure 111/55 L 126/61 105/55 L Pulse Oximetry 100 100 99 10/02/18 20:15 10/02/18 20:30 10/02/18 20:45 Temperature Pulse Rate 110 H 110 H 112 H Respiratory Rate 23 21 24 Blood Pressure 130/61 150/63 H 144/66 H Pulse Oximetry 99 99 100 10/02/18 20:48 10/02/18 21:00 10/02/18 21:15 Temperature Pulse Rate 110 H 107 H 107 H Respiratory Rate 17 17 16 Blood Pressure 116/54 L 107/53 L Pulse Oximetry 100 100 98 10/02/18 21:30 10/02/18 21:45 10/02/18 22:00 Temperature Pulse Rate 108 H 108 H 104 H Respiratory Rate 16 19 16 Blood Pressure 109/57 L 111/55 L 96/54 L Pulse Oximetry 98 100 98 10/02/18 22:15 10/02/18 22:30 10/02/18 22:47 Temperature Pulse Rate 102 H 96 H 102 H Respiratory Rate 16 16 22 Blood Pressure 99/50 L 94/50 L 124/55 L Pulse Oximetry 96 98 97 10/02/18 23:00 10/02/18 23:15 10/02/18 23:30 Temperature Pulse Rate 95 H 92 H 87 Respiratory Rate 16 16 16 Blood Pressure 101/49 L 99/50 L 99/52 L Pulse Oximetry 97 98 98 10/02/18 23:45 10/03/18 00:00 10/03/18 00:15 Temperature 98.6 F Pulse Rate 84 85 82 Respiratory Rate 16 16 16 Blood Pressure 96/53 L 94/55 L 100/56 L Pulse Oximetry 98 99 99 10/03/18 00:26 10/03/18 00:30 10/03/18 00:45 Temperature Pulse Rate 82 82 85 Respiratory Rate 16 16 16 Blood Pressure 103/56 L 100/55 L Pulse Oximetry 100 100 99 10/03/18 01:00 10/03/18 01:15 10/03/18 01:30 Temperature Pulse Rate 90 90 90 Respiratory Rate 16 16 16 Blood Pressure 105/54 L 100/52 L 90/53 L Pulse Oximetry 100 100 100 10/03/18 01:45 10/03/18 02:00 10/03/18 02:15 Temperature Pulse Rate 90 89 88 Respiratory Rate 16 16 16 Blood Pressure 99/55 L 104/59 L 103/54 L Pulse Oximetry 100 100 100 10/03/18 02:30 10/03/18 02:45 10/03/18 03:00 Temperature Pulse Rate 87 87 89 Respiratory Rate 16 16 16 Blood Pressure 100/55 L 100/58 L 104/56 L Pulse Oximetry 99 99 100 10/03/18 03:15 10/03/18 03:31 10/03/18 03:37 Temperature Pulse Rate 85 105 H 109 H Respiratory Rate 16 40 H Blood Pressure 99/58 L 188/115 H 166/77 H Pulse Oximetry 100 99 100 0203/19 03:45 10/03/18 04:00 10/03/18 04:15 Temperature 98.6 F Pulse Rate 114 H 116 H 116 H Respiratory Rate 35 H 30 H 25 H Blood Pressure 173/79 H 157/65 H 137/55 L Pulse Oximetry 100 99 98 10/03/18 04:30 10/03/18 04:40 10/03/18 06:00 Temperature Pulse Rate 114 H 107 H Respiratory Rate 22 17 Blood Pressure 124/60 Pulse Oximetry 96 97 Intake & Output 10/02/18 10/03/18 10/03/18 18:59 06:59 18:59 Intake Total 1607 / 1607 750 / 750 100 / 100 Output Total 50 / 50 500 / 500 Balance 1557 / 1557 250 / 250 100 / 100 Weight 60.8 kg Intake: IV 715 / 715 100 / 100 100 / 100 Maxipime Inj 1,000 MG In NS Inj 200 / 200 100 / 100 100 / 100 100 ML @ 200 mls/hr IV.SIG Q8H JORGE Rx#:[id number] Vancomycin Inj 1,500 MG In NS 515 / 515 Inj 500 ML @ 257.5 mls/hr IV. SIG ONCE ONE Rx#:[id number] Tube Feeding 642 / 642 0 / 0 Tube Irrigant 150 / 150 Water Bolus Amount 250 / 250 Free Water Amount 250 / 250 250 / 250 Output: Stool 500 / 500 Urine Amount (Catheter) 50 / 50 Female External 50 / 50 Other: # Voids 3 # Incontinent Voids 2 Date of Last Bowel Movement 10/02/18 10/02/18 Result Diagrams: 10/03/18 06:32 10/02/18 05:20 Other Results: Laboratory Results - last 12 hr 10/02/18 10/03/18 23:33 05:59 POC Glucose 119 H 117 H Imaging: Head CT 09/18/18 18:40 CONCLUSION: 1. Stable appearance of the brain. Marked ventriculomegaly and white matter disease. . Chest CTA 09/18/18 19:26 CONCLUSION: 1. There is no evidence for pulmonary embolism. 2. Severe emphysema. 3. There is a large soft tissue mass in the right lower lobe suspicious for malignancy until proven otherwise. Venous Doppler Study 10/01/18 00:00 CONCLUSION: 1. Superficial venous thrombosis identified in the right cephalic vein. 2. No evidence of DVT. Abdomen X-Ray 10/02/18 06:48 CONCLUSION: Persistent airspace consolidation involving the right lower lobe. Abdominal bowel gas pattern is normal. Chest X-Ray 10/02/18 06:48 CONCLUSION: There is persistent airspace consolidation involving the right lower lobe. There is improved aeration on the current exam. Objective Remarks: GENERAL: Well-nourished, well-developed patient. SKIN: Warm and dry. HEAD: Atraumatic. Normocephalic. EYES: Pupils equal and round. No scleral icterus. No injection or drainage. ENT: No nasal bleeding or discharge. Mucous membranes pink and moist. NECK: Tracheostomy in place, slight pink tinge to secretions, no active bleeding. CARDIOVASCULAR: Tachycardic, No murmurs rubs or gallops. RESPIRATORY: Orotracheally intubated on mechanical ventilation. B/L equal air entry GASTROINTESTINAL: Abdomen soft, non-tender,distended. PEG in place, MUSCULOSKELETAL: Extremities without clubbing, cyanosis, or edema. s/p L AKA. NEUROLOGICAL: Awakens, looks around. Blinks and squeezes hand to command Assessment and Plan - Assessment and Plan Plan: NEURO: History of stroke Off sedation. Monitor neuro status RESP: Acute respiratory failure on mechanical ventilation Emphysema Lung mass History of prior trach after stroke, has been subsequently decannulated Per Dr. De Jesus. not wishing to pursue CT-guided biopsy. Continue with vent support Daily CPAP trials. Vent bundle/nebs. Percutaneous tracheostomy performed at bedside 09/29. Pulm toilet, trach care CXR 2/2 : persistent airspace consolidation involving the right lower lobe. There is improved aeration on the current exam. CV: HTN Monitor BP//heart rate keep MAP>65mmHg. On Cardizem 30mg q6 with hold orders. GI: PEG in place. Glucerna 1.5 @60ml/hr on hold for abd distention KUB abdomen 2/2 Normal bowel gas pattern. Check CT abd/pelvis FEN/RENAL: Acute hypernatremia Hypokalemia resolved Monitor renal function, I/O's, electrolytes replacement per protocol. Free water 250ml Q12 , ID: HCAP UTI Urine culture from 09/18 with providentia and Proteus. Urine and sputum cultures negative Completed 8 day course of zosyn. Monitor for signs of infections ( Fever, WBC) sputum cx 09/28: No growth On abx Cefepime and Vanco, follow up on blood cultures, recheck sputum cx Check CT abd/pelvis KUB 10/02: Normal bowel gas pattern HEME: R brachial DVT Anemia Lovenox 60 mg subcu every 12 hours. s/p Transfuse 2u PRBC 10/01 GI is following for EGD/Colonoscopy tomorrow. ENDO: Diabetes mellitus Insulin sliding scale PROPH: SCD/Lovenox for DVT prophylaxis. Protonix 40mg Q12 for stress ulcer prophylaxis. 10/01 Doppler US UE b/l: Superficial venous thrombosis identified in the right cephalic vein. No evidence of DVT. 09/21 Doppler US RUE: Occlusive thrombus cephalic and brachial veins ACCESS: PIV x2. Full code Level 3 follow-up
[2018-10-03] MEDS: Chlorhexidine 0.12% Oral Kit 15 ML UDC OROPHARYNG SCH (07:42)
[2018-10-03 07:52] LABS: Albumin 1.9 g/dL (3.4-5.0); Anion Gap 8 meq/L (5-15); Aspartate Aminotransferase 14 U/L (15-37); Blood Urea Nitrogen 20 mg/dL (7-18); Calcium 8.8 mg/dL (8.5-10.1); Carbon Dioxide 24.6 meq/L (21.0-32.0); Chloride 110 meq/L (98-107); Glomerular Filtration Rate Greater Than 89 mL/min (>89); Glucose,Random 104 mg/dL (74-106); Magnesium 2.7 mg/dL (1.5-2.5); Potassium 3.8 meq/L (3.5-5.1); Sodium 143 meq/L (136-145)
[2018-10-03 07:53] LABS: Alanine Aminotransferase 17 U/L (10-53); Phosphorus 2.8 mg/dL (2.5-4.9)
[2018-10-03 07:55] LABS: Alkaline Phosphatase 96 U/L (45-117); Total Protein 7.2 g/dL (6.4-8.2)
[2018-10-03] MEDS: Enoxaparin Inj 60 MG/0.6 ML Syringe SQ SCH ×2 (08:06→22:30)
[2018-10-03] MEDS: Senna/Docusate Sodium 8.6/50 MG Tablet PO SCH ×2 (08:06→22:30)
--- NOTE | 2018-10-03 09:01 | CT ---
EXAM DATE: 10/03/2018 8:55 AM EST AGE/SEX: 68 years / Female INDICATIONS: Abdominal distention. CLINICAL DATA: This is the patient's initial encounter. Patient reports that signs and symptoms have been present for 1 day and indicates a pain score of Nonresponsive. MEDICAL/SURGICAL HISTORY: Stroke. Diabetes. hemiparesis . PEG tube placement RADIATION DOSE: 12.57 CTDI (mGy) COMPARISON: C, ABDOMEN 1V KUB, 10/02/2018. C, ABDOMEN KUB ONLY, 02/25/2017. C, CHEST 1V SIN GLE AP, 10/02/2018. C, CHEST 1V SINGLE AP, 09/27/2018. [facility] [place] W 3D, 09/18/2018 . . TECHNIQUE: Multiple contiguous axial images were obtained through the abdomen. Images were obtained using multiple row detector helical technique. Using automated exposure control and adjustment of the mA and/or kV according to patient size, radiation dose was kept as low as reasonably achievable to o btain optimal diagnostic quality images. DICOM format image data is available electronically for rev iew and comparison. FINDINGS: Significant respiratory artifact is noted. Lower Lungs: Persistent airspace consolidation involving the right lower lobe. Dependent atelectasis seen within the left lower lobe. Heart size is normal. Liver: The liver has a homogeneous density without space-occupying lesion. There is no dilation of th e biliary tree. Spleen: Homogeneous density without enlargement. Pancreas: Unremarkable without mass or calcification. Kidneys: Normal in size and shape. No evidence of mass or hydronephrosis. Adrenal Glands: Unremarkable. Aorta: Extensive atherosclerosis. Bowel/Mesentery: Percutaneous gastrostomy tube within the stomach. No complicating features are seen . Large and small bowel is unremarkable without evidence of bowel obstruction. Abdominal Wall: Intact. Retroperitoneum: No evidence of adenopathy in the retrocrural, para-aortic, or deep pelvic regions. Bladder: Contours are smooth. Reproductive Organs: No abnormal masses or calcifications seen. Inguinal: The inguinal region is unremarkable without evidence of adenopathy. Bony Structures: Diffuse osteopenia and dystrophic changes seen about the femurs. No visible fractur e. CONCLUSION: 1. There is air and fluid identified within the stomach which may account for the patient's perceive d distention. No evidence of bowel obstruction or ileus. 2. Extensive atherosclerosis. 3. Persistent right lower lobe airspace consolidation. Electronically signed by: Mary Gavin MD Board Certified Radiologist 10/03/2018 9:00 AM EST
[2018-10-03] MEDS: Vancomycin Inj 1,000 MG in Sodium Chlor 0.9% Inj 250 ML IV.SIG SCH (11:33)
[2018-10-03] MEDS: Pantoprazole Inj 40 MG Vial IV.PUSH SCH (11:33)
--- NOTE | 2018-10-03 11:34 | P.PNGI ---
Subjective Interval history: Resting comfortably with eyes closed No apparent distress Trach to ventilator No reported obvious signs of bleeding <Yael Haines - Last Filed: 10/03/18 11:28> Physical Exam Vital signs: Vital Signs 10/02/18 11:30 10/02/18 11:33 10/02/18 11:45 Temperature Pulse Rate 98 H 99 H 99 H Respiratory Rate 34 H 28 H 21 Blood Pressure 109/59 L 110/58 L Pulse Oximetry 98 98 98 10/02/18 12:00 10/02/18 12:15 10/02/18 12:30 Temperature 98 F Pulse Rate 107 H 106 H 106 H Respiratory Rate 33 H 38 H 40 H Blood Pressure 124/65 115/60 126/65 Pulse Oximetry 98 95 97 10/02/18 12:45 10/02/18 13:00 10/02/18 13:15 Temperature Pulse Rate 105 H 107 H 107 H Respiratory Rate 41 H 41 H 42 H Blood Pressure 123/64 134/66 131/70 Pulse Oximetry 95 99 99 10/02/18 13:30 10/02/18 13:45 10/02/18 14:00 Temperature Pulse Rate 108 H 109 H 109 H Respiratory Rate 47 H 24 26 H Blood Pressure 134/74 138/81 129/61 Pulse Oximetry 98 99 99 10/02/18 14:16 10/02/18 14:30 10/02/18 14:45 Temperature Pulse Rate 107 H 112 H 102 H Respiratory Rate 19 24 20 Blood Pressure 114/68 123/72 Pulse Oximetry 98 98 10/02/18 14:46 10/02/18 15:00 10/02/18 15:15 Temperature Pulse Rate 117 H 110 H 109 H Respiratory Rate 37 H 16 30 H Blood Pressure 148/71 H 117/59 L 132/68 Pulse Oximetry 99 97 98 10/02/18 15:30 10/02/18 15:45 10/02/18 16:00 Temperature 98.4 F Pulse Rate 116 H 120 H 116 H Respiratory Rate 45 H 38 H 33 H Blood Pressure 127/69 160/74 H 143/62 H Pulse Oximetry 98 97 98 10/02/18 16:16 10/02/18 16:30 10/02/18 16:45 Temperature Pulse Rate 119 H 117 H 119 H Respiratory Rate 39 H 28 H 23 Blood Pressure 123/80 152/68 H 142/70 H Pulse Oximetry 98 98 98 10/02/18 17:00 10/02/18 17:15 10/02/18 17:30 Temperature Pulse Rate 107 H 112 H 125 H Respiratory Rate 16 19 44 H Blood Pressure 114/55 L 153/66 H 175/82 H Pulse Oximetry 100 98 98 10/02/18 17:45 10/02/18 18:00 10/02/18 18:15 Temperature Pulse Rate 121 H 115 H 117 H Respiratory Rate 21 16 16 Blood Pressure 146/67 H 116/56 L 119/57 L Pulse Oximetry 100 100 99 10/02/18 18:30 10/02/18 18:45 10/02/18 19:00 Temperature Pulse Rate 115 H 119 H 118 H Respiratory Rate 16 20 23 Blood Pressure 122/58 L 164/78 H Pulse Oximetry 99 98 99 10/02/18 19:01 10/02/18 19:15 10/02/18 19:30 Temperature Pulse Rate 119 H 121 H 112 H Respiratory Rate 25 H 31 H 16 Blood Pressure 135/62 161/68 H 111/55 L Pulse Oximetry 99 98 100 10/02/18 19:45 10/02/18 20:00 10/02/18 20:15 Temperature 100.4 F H Pulse Rate 112 H 107 H 110 H Respiratory Rate 16 16 23 Blood Pressure 126/61 105/55 L 130/61 Pulse Oximetry 100 99 99 10/02/18 20:30 10/02/18 20:45 10/02/18 20:48 Temperature Pulse Rate 110 H 112 H 110 H Respiratory Rate 21 24 17 Blood Pressure 150/63 H 144/66 H Pulse Oximetry 99 100 100 10/02/18 21:00 10/02/18 21:15 10/02/18 21:30 Temperature Pulse Rate 107 H 107 H 108 H Respiratory Rate 17 16 16 Blood Pressure 116/54 L 107/53 L 109/57 L Pulse Oximetry 100 98 98 10/02/18 21:45 10/02/18 22:00 10/02/18 22:15 Temperature Pulse Rate 108 H 104 H 102 H Respiratory Rate 19 16 16 Blood Pressure 111/55 L 96/54 L 99/50 L Pulse Oximetry 100 98 96 10/02/18 22:30 10/02/18 22:47 10/02/18 23:00 Temperature Pulse Rate 96 H 102 H 95 H Respiratory Rate 16 22 16 Blood Pressure 94/50 L 124/55 L 101/49 L Pulse Oximetry 98 97 97 10/02/18 23:15 10/02/18 23:30 10/02/18 23:45 Temperature Pulse Rate 92 H 87 84 Respiratory Rate 16 16 16 Blood Pressure 99/50 L 99/52 L 96/53 L Pulse Oximetry 98 98 98 10/03/18 00:00 10/03/18 00:15 10/03/18 00:26 Temperature 98.6 F Pulse Rate 85 82 82 Respiratory Rate 16 16 16 Blood Pressure 94/55 L 100/56 L Pulse Oximetry 99 99 100 10/03/18 00:30 10/03/18 00:45 10/03/18 01:00 Temperature Pulse Rate 82 85 90 Respiratory Rate 16 16 16 Blood Pressure 103/56 L 100/55 L 105/54 L Pulse Oximetry 100 99 100 10/03/18 01:15 10/03/18 01:30 10/03/18 01:45 Temperature Pulse Rate 90 90 90 Respiratory Rate 16 16 16 Blood Pressure 100/52 L 90/53 L 99/55 L Pulse Oximetry 100 100 100 10/03/18 02:00 10/03/18 02:15 10/03/18 02:30 Temperature Pulse Rate 89 88 87 Respiratory Rate 16 16 16 Blood Pressure 104/59 L 103/54 L 100/55 L Pulse Oximetry 100 100 99 10/03/18 02:45 10/03/18 03:00 10/03/18 03:15 Temperature Pulse Rate 87 89 85 Respiratory Rate 16 16 16 Blood Pressure 100/58 L 104/56 L 99/58 L Pulse Oximetry 99 100 100 10/03/18 03:31 10/03/18 03:37 10/03/18 03:45 Temperature Pulse Rate 105 H 109 H 114 H Respiratory Rate 40 H 35 H Blood Pressure 188/115 H 166/77 H 173/79 H Pulse Oximetry 99 100 100 10/03/18 04:00 10/03/18 04:15 10/03/18 04:30 Temperature 98.6 F Pulse Rate 116 H 116 H 114 H Respiratory Rate 30 H 25 H 22 Blood Pressure 157/65 H 137/55 L 124/60 Pulse Oximetry 99 98 96 10/03/18 04:40 10/03/18 04:45 10/03/18 05:00 Temperature Pulse Rate 113 H 110 H Respiratory Rate 17 22 16 Blood Pressure 117/63 121/61 Pulse Oximetry 97 96 95 10/03/18 05:15 10/03/18 05:30 10/03/18 05:45 Temperature Pulse Rate 113 H 113 H 111 H Respiratory Rate 37 H 18 27 H Blood Pressure 122/63 116/60 120/61 Pulse Oximetry 95 97 97 10/03/18 06:00 10/03/18 06:15 10/03/18 06:30 Temperature Pulse Rate 107 H 107 H 109 H Respiratory Rate 16 40 H 18 Blood Pressure 116/56 L 119/58 L 122/60 Pulse Oximetry 97 97 98 10/03/18 06:45 10/03/18 07:00 10/03/18 07:15 Temperature Pulse Rate 107 H 104 H 103 H Respiratory Rate 17 17 22 Blood Pressure 120/57 L 118/57 L 120/57 L Pulse Oximetry 98 98 97 10/03/18 07:30 10/03/18 07:45 10/03/18 07:49 Temperature Pulse Rate 100 H 99 H 96 H Respiratory Rate 16 17 16 Blood Pressure 114/59 L 115/58 L Pulse Oximetry 98 99 99 10/03/18 08:00 10/03/18 10:00 Temperature 97.8 F Pulse Rate 111 H 92 H Respiratory Rate 20 Blood Pressure 121/59 L Pulse Oximetry 100 Intake & Output 10/02/18 10/03/18 10/03/18 18:59 06:59 18:59 Intake Total 1607 / 1607 750 / 750 350 / 350 Output Total 50 / 50 500 / 500 Balance 1557 / 1557 250 / 250 350 / 350 Weight 60.8 kg Intake: IV 715 / 715 100 / 100 100 / 100 Maxipime Inj 1,000 MG In NS Inj 200 / 200 100 / 100 100 / 100 100 ML @ 200 mls/hr IV.SIG Q8H JORGE Rx#:[id number] Vancomycin Inj 1,500 MG In NS 515 / 515 Inj 500 ML @ 257.5 mls/hr IV. SIG ONCE ONE Rx#:[id number] Tube Feeding 642 / 642 0 / 0 Tube Irrigant 150 / 150 Water Bolus Amount 250 / 250 Free Water Amount 250 / 250 250 / 250 250 / 250 Output: Stool 500 / 500 Urine Amount (Catheter) 50 / 50 Female External 50 / 50 Other: # Voids 3 # Incontinent Voids 2 Date of Last Bowel Movement 10/02/18 10/02/18 10/02/18 - Constitutional no acute distress, chronically ill appearing - Routine HEENT Exam Head: Present: normocephalic - Routine Neck Exam Comments: Tracheostomy the ventilator - Routine Respiratory Exam Present: patient mechanically ventilated, CTA bilaterally - Routine Abdominal Exam Present: normoactive bowel sounds, ostomy. Absent: tenderness, firm Comments: Gastrostomy tube - Routine Extremities Exam Absent: edema Comments: Left AKA - Routine Skin Exam Present: dry, warm - Urinary Catheter Management Indwelling Temp Sensing Catheter Cath placed during this visit: yes, but has since been removed by the nurse Reason for continuing: Severe pressure ulcer/wound Insertion date: 09/18/18 Insertion time: 18:50 Removal date: 09/23/18 Removal time: 16:00 Female External Cath placed during this visit: no Straight Cath placed during this visit: no <Yael Haines - Last Filed: 10/03/18 11:28> Vital signs: Vital Signs 10/02/18 15:15 10/02/18 15:30 10/02/18 15:45 Temperature Pulse Rate 109 H 116 H 120 H Respiratory Rate 30 H 45 H 38 H Blood Pressure 132/68 127/69 160/74 H Pulse Oximetry 98 98 97 10/02/18 16:00 10/02/18 16:16 10/02/18 16:30 Temperature 98.4 F Pulse Rate 116 H 119 H 117 H Respiratory Rate 33 H 39 H 28 H Blood Pressure 143/62 H 123/80 152/68 H Pulse Oximetry 98 98 98 10/02/18 16:45 10/02/18 17:00 10/02/18 17:15 Temperature Pulse Rate 119 H 107 H 112 H Respiratory Rate 23 16 19 Blood Pressure 142/70 H 114/55 L 153/66 H Pulse Oximetry 98 100 98 10/02/18 17:30 10/02/18 17:45 10/02/18 18:00 Temperature Pulse Rate 125 H 121 H 115 H Respiratory Rate 44 H 21 16 Blood Pressure 175/82 H 146/67 H 116/56 L Pulse Oximetry 98 100 100 10/02/18 18:15 10/02/18 18:30 10/02/18 18:45 Temperature Pulse Rate 117 H 115 H 119 H Respiratory Rate 16 16 20 Blood Pressure 119/57 L 122/58 L 164/78 H Pulse Oximetry 99 99 98 10/02/18 19:00 10/02/18 19:01 10/02/18 19:15 Temperature Pulse Rate 118 H 119 H 121 H Respiratory Rate 23 25 H 31 H Blood Pressure 135/62 161/68 H Pulse Oximetry 99 99 98 10/02/18 19:30 10/02/18 19:45 10/02/18 20:00 Temperature 100.4 F H Pulse Rate 112 H 112 H 107 H Respiratory Rate 16 16 16 Blood Pressure 111/55 L 126/61 105/55 L Pulse Oximetry 100 100 99 10/02/18 20:15 10/02/18 20:30 10/02/18 20:45 Temperature Pulse Rate 110 H 110 H 112 H Respiratory Rate 23 21 24 Blood Pressure 130/61 150/63 H 144/66 H Pulse Oximetry 99 99 100 10/02/18 20:48 10/02/18 21:00 10/02/18 21:15 Temperature Pulse Rate 110 H 107 H 107 H Respiratory Rate 17 17 16 Blood Pressure 116/54 L 107/53 L Pulse Oximetry 100 100 98 10/02/18 21:30 10/02/18 21:45 10/02/18 22:00 Temperature Pulse Rate 108 H 108 H 104 H Respiratory Rate 16 19 16 Blood Pressure 109/57 L 111/55 L 96/54 L Pulse Oximetry 98 100 98 10/02/18 22:15 10/02/18 22:30 10/02/18 22:47 Temperature Pulse Rate 102 H 96 H 102 H Respiratory Rate 16 16 22 Blood Pressure 99/50 L 94/50 L 124/55 L Pulse Oximetry 96 98 97 10/02/18 23:00 10/02/18 23:15 10/02/18 23:30 Temperature Pulse Rate 95 H 92 H 87 Respiratory Rate 16 16 16 Blood Pressure 101/49 L 99/50 L 99/52 L Pulse Oximetry 97 98 98 10/02/18 23:45 10/03/18 00:00 10/03/18 00:15 Temperature 98.6 F Pulse Rate 84 85 82 Respiratory Rate 16 16 16 Blood Pressure 96/53 L 94/55 L 100/56 L Pulse Oximetry 98 99 99 10/03/18 00:26 10/03/18 00:30 10/03/18 00:45 Temperature Pulse Rate 82 82 85 Respiratory Rate 16 16 16 Blood Pressure 103/56 L 100/55 L Pulse Oximetry 100 100 99 10/03/18 01:00 10/03/18 01:15 10/03/18 01:30 Temperature Pulse Rate 90 90 90 Respiratory Rate 16 16 16 Blood Pressure 105/54 L 100/52 L 90/53 L Pulse Oximetry 100 100 100 10/03/18 01:45 10/03/18 02:00 10/03/18 02:15 Temperature Pulse Rate 90 89 88 Respiratory Rate 16 16 16 Blood Pressure 99/55 L 104/59 L 103/54 L Pulse Oximetry 100 100 100 10/03/18 02:30 10/03/18 02:45 10/03/18 03:00 Temperature Pulse Rate 87 87 89 Respiratory Rate 16 16 16 Blood Pressure 100/55 L 100/58 L 104/56 L Pulse Oximetry 99 99 100 10/03/18 03:15 10/03/18 03:31 10/03/18 03:37 Temperature Pulse Rate 85 105 H 109 H Respiratory Rate 16 40 H Blood Pressure 99/58 L 188/115 H 166/77 H Pulse Oximetry 100 99 100 10/03/18 03:45 10/03/18 04:00 10/03/18 04:15 Temperature 98.6 F Pulse Rate 114 H 116 H 116 H Respiratory Rate 35 H 30 H 25 H Blood Pressure 173/79 H 157/65 H 137/55 L Pulse Oximetry 100 99 98 10/03/18 04:30 10/03/18 04:40 10/03/18 04:45 Temperature Pulse Rate 114 H 113 H Respiratory Rate 22 17 22 Blood Pressure 124/60 117/63 Pulse Oximetry 96 97 96 10/03/18 05:00 10/03/18 05:15 10/03/18 05:30 Temperature Pulse Rate 110 H 113 H 113 H Respiratory Rate 16 37 H 18 Blood Pressure 121/61 122/63 116/60 Pulse Oximetry 95 95 97 10/03/18 05:45 10/03/18 06:00 10/03/18 06:15 Temperature Pulse Rate 111 H 107 H 107 H Respiratory Rate 27 H 16 40 H Blood Pressure 120/61 116/56 L 119/58 L Pulse Oximetry 97 97 97 10/03/18 06:30 10/03/18 06:45 10/03/18 07:00 Temperature Pulse Rate 109 H 107 H 104 H Respiratory Rate 18 17 17 Blood Pressure 122/60 120/57 L 118/57 L Pulse Oximetry 98 98 98 10/03/18 07:15 10/03/18 07:30 10/03/18 07:45 Temperature Pulse Rate 103 H 100 H 99 H Respiratory Rate 22 16 17 Blood Pressure 120/57 L 114/59 L 115/58 L Pulse Oximetry 97 98 99 10/03/18 07:49 10/03/18 08:00 10/03/18 08:55 Temperature 97.8 F Pulse Rate 96 H 111 H 112 H Respiratory Rate 16 20 31 H Blood Pressure 121/59 L 112/58 L Pulse Oximetry 99 100 100 10/03/18 09:00 10/03/18 09:15 10/03/18 09:30 Temperature Pulse Rate 108 H 102 H 100 H Respiratory Rate 27 H 23 30 H Blood Pressure 121/58 L 130/61 107/55 L Pulse Oximetry 100 100 100 10/03/18 09:45 10/03/18 10:00 10/03/18 10:15 Temperature Pulse Rate 98 H 96 H 93 H Respiratory Rate 23 24 12 Blood Pressure 105/51 L 100/53 L 103/53 L Pulse Oximetry 100 100 100 10/03/18 10:30 10/03/18 10:45 10/03/18 11:00 Temperature Pulse Rate 90 90 90 Respiratory Rate 24 25 H 29 H Blood Pressure 105/54 L 103/56 L 108/54 L Pulse Oximetry 100 100 100 10/03/18 11:15 10/03/18 11:30 10/03/18 11:38 Temperature Pulse Rate 88 86 88 Respiratory Rate 25 H 26 H 15 Blood Pressure 106/56 L 107/55 L Pulse Oximetry 100 100 100 10/03/18 11:45 10/03/18 12:00 10/03/18 12:15 Temperature 98.3 F Pulse Rate 91 H 100 H 98 H Respiratory Rate 30 H 37 H 40 H Blood Pressure 124/59 L 126/59 L 125/60 Pulse Oximetry 100 100 98 10/03/18 12:30 10/03/18 12:45 10/03/18 13:00 Temperature Pulse Rate 100 H 97 H 98 H Respiratory Rate 40 H 25 H 39 H Blood Pressure 132/64 125/60 126/63 Pulse Oximetry 100 100 100 10/03/18 13:15 10/03/18 13:30 10/03/18 13:45 Temperature Pulse Rate 98 H 98 H 101 H Respiratory Rate 16 17 22 Blood Pressure 121/63 118/62 117/61 Pulse Oximetry 100 100 100 10/03/18 14:37 Temperature Pulse Rate 92 H Respiratory Rate 16 Blood Pressure Pulse Oximetry Intake & Output 10/02/18 10/03/18 10/03/18 18:59 06:59 18:59 Intake Total 1607 / 1607 750 / 750 350 / 350 Output Total 50 / 50 500 / 500 Balance 1557 / 1557 250 / 250 350 / 350 Weight 60.8 kg Intake: IV 715 / 715 100 / 100 100 / 100 Maxipime Inj 1,000 MG In NS Inj 200 / 200 100 / 100 100 / 100 100 ML @ 200 mls/hr IV.SIG Q8H JORGE Rx#:[id number] Vancomycin Inj 1,500 MG In NS 515 / 515 Inj 500 ML @ 257.5 mls/hr IV. SIG ONCE ONE Rx#:[id number] Tube Feeding 642 / 642 0 / 0 Tube Irrigant 150 / 150 Water Bolus Amount 250 / 250 Free Water Amount 250 / 250 250 / 250 250 / 250 Output: Stool 500 / 500 Urine Amount (Catheter) 50 / 50 Female External 50 / 50 Other: # Voids 3 # Incontinent Voids 2 Date of Last Bowel Movement 10/02/18 10/02/18 10/02/18 - Urinary Catheter Management Indwelling Temp Sensing Catheter Cath placed during this visit: no Female External Cath placed during this visit: no Straight Cath placed during this visit: no <Jaron Cooper - Last Filed: 10/03/18 15:01> Results - Labs CBC & Chem 7: 10/03/18 06:32 10/03/18 06:32 Laboratory Results - last 24 hr 10/02/18 10/02/18 10/03/18 17:23 23:33 05:59 WBC RBC Hgb Hct MCV MCH MCHC RDW Plt Count MPV Neut % (Auto) Lymph % (Auto) [place] % (Auto) Eos % (Auto) Baso % (Auto) Neut # (Auto) Lymph # (Auto) [place] # (Auto) Eos # (Auto) Baso # (Auto) WBC Differential Differential Comment Sodium Potassium Chloride Carbon Dioxide Anion Gap BUN Creatinine Estimated GFR POC Glucose 123 H 119 H 117 H Random Glucose Calcium Phosphorus Magnesium Total Bilirubin AST ALT Alkaline Phosphatase Total Protein Albumin 10/03/18 10/03/18 10/03/18 06:32 06:32 11:08 WBC 8.8 RBC 3.76 L Hgb 9.5 L Hct 30.4 L MCV 80.7 MCH 25.3 L MCHC 31.3 L RDW 20.7 H Plt Count 235 MPV 9.5 Neut % (Auto) 81.8 H Lymph % (Auto) 7.[address] [place] % (Auto) 3.8 Eos % (Auto) 6.3 H Baso % (Auto) 0.7 Neut # (Auto) 7.2 Lymph # (Auto) 0.[address] [place] # (Auto) 0.3 Eos # (Auto) 0.6 H Baso # (Auto) 0.1 WBC Differential . Differential Comment Auto diff final Sodium 143 Potassium 3.8 Chloride 110 H Carbon Dioxide 24.6 Anion Gap 8 BUN 20 H Creatinine 0.71 Estimated GFR Greater than 89 POC Glucose 99 Random Glucose 104 Calcium 8.8 Phosphorus 2.8 Magnesium 2.7 H Total Bilirubin 0.4 AST 14 L ALT 17 Alkaline Phosphatase 96 Total Protein 7.2 Albumin 1.9 L Microbiology 10/01/18 16:57 Blood - Peripheral Aerobic Blood Culture - Preliminary No growth in 2 days 10/01/18 16:57 Blood - Peripheral Anaerobic Blood Culture - Preliminary No growth in 2 days 10/01/18 16:50 Blood - Peripheral Aerobic Blood Culture - Preliminary No growth in 2 days 10/01/18 16:50 Blood - Peripheral Anaerobic Blood Culture - Preliminary No growth in 2 days 10/01/18 13:00 Sputum - Endotracheal Gram Stain - Final 10/01/18 13:00 Sputum - Endotracheal Sputum Culture - Preliminary Immature growth - reincubate 10/01/18 16:10 Stool Enteric Pathogens (PCR) - Final 10/01/18 16:10 Stool Stool for WBCs - Final - Imaging Impressions Abdomen/Pelvis CT 10/03/18 07:26 CONCLUSION: 1. There is air and fluid identified within the stomach which may account for the patient's perceived distention. No evidence of bowel obstruction or ileus. 2. Extensive atherosclerosis. 3. Persistent right lower lobe airspace consolidation. <Yael Haines - Last Filed: 10/03/18 11:28> - Labs CBC & Chem 7: 10/03/18 06:32 10/03/18 06:32 Laboratory Results - last 24 hr 10/02/18 10/02/18 10/03/18 17:23 23:33 05:59 WBC RBC Hgb Hct MCV MCH MCHC RDW Plt Count MPV Neut % (Auto) Lymph % (Auto) [place] % (Auto) Eos % (Auto) Baso % (Auto) Neut # (Auto) Lymph # (Auto) [place] # (Auto) Eos # (Auto) Baso # (Auto) WBC Differential Differential Comment Sodium Potassium Chloride Carbon Dioxide Anion Gap BUN Creatinine Estimated GFR POC Glucose 123 H 119 H 117 H Random Glucose Calcium Phosphorus Magnesium Total Bilirubin AST ALT Alkaline Phosphatase Total Protein Albumin 10/03/18 10/03/18 10/03/18 06:32 06:32 11:08 WBC 8.8 RBC 3.76 L Hgb 9.5 L Hct 30.4 L MCV 80.7 MCH 25.3 L MCHC 31.3 L RDW 20.7 H Plt Count 235 MPV 9.5 Neut % (Auto) 81.8 H Lymph % (Auto) 7.[address] [place] % (Auto) 3.8 Eos % (Auto) 6.3 H Baso % (Auto) 0.7 Neut # (Auto) 7.2 Lymph # (Auto) 0.[address] [place] # (Auto) 0.3 Eos # (Auto) 0.6 H Baso # (Auto) 0.1 WBC Differential . Differential Comment Auto diff final Sodium 143 Potassium 3.8 Chloride 110 H Carbon Dioxide 24.6 Anion Gap 8 BUN 20 H Creatinine 0.71 Estimated GFR Greater than 89 POC Glucose 99 Random Glucose 104 Calcium 8.8 Phosphorus 2.8 Magnesium 2.7 H Total Bilirubin 0.4 AST 14 L ALT 17 Alkaline Phosphatase 96 Total Protein 7.2 Albumin 1.9 L Microbiology 10/03/18 08:05 Sputum - Endotracheal Gram Stain - Final 10/01/18 13:00 Sputum - Endotracheal Gram Stain - Final 10/01/18 13:00 Sputum - Endotracheal Sputum Culture - Final Proteus mirabilis 10/01/18 16:57 Blood - Peripheral Aerobic Blood Culture - Preliminary No growth in 2 days 10/01/18 16:57 Blood - Peripheral Anaerobic Blood Culture - Preliminary No growth in 2 days 10/01/18 16:50 Blood - Peripheral Aerobic Blood Culture - Preliminary No growth in 2 days 10/01/18 16:50 Blood - Peripheral Anaerobic Blood Culture - Preliminary No growth in 2 days 10/01/18 16:10 Stool Enteric Pathogens (PCR) - Final 10/01/18 16:10 Stool Stool for WBCs - Final - Imaging Impressions Abdomen/Pelvis CT 10/03/18 07:26 CONCLUSION: 1. There is air and fluid identified within the stomach which may account for the patient's perceived distention. No evidence of bowel obstruction or ileus. 2. Extensive atherosclerosis. 3. Persistent right lower lobe airspace consolidation. <Jaron Cooper - Last Filed: 10/03/18 15:01> Assessment and Plan (1) Anemia Status: Acute Code(s): D64.9 - Anemia, unspecified - Plan This patient is a 68-year-old female with past medical history significant for CVA, left AKA, acute respiratory failure, diabetes, dysphagia, hypertension, hemiparesis, hemiplegia and hypoxia. Surgical history significant for PEG tube placement, tracheostomy and left above-knee amputation. Patient presented to [facility] emergency room via EMS for reported hypoxemia. Of note, patient was on home hospice prior to arrival. Upon arrival, patient was intubated by ER attending for protection of airway. Our service has been consulted to evaluate patient for worsening anemia requiring blood transfusion. Patient is currently being cared for in the critical care setting post tracheostomy placement, patient mechanically ventilated. Temperature 101.5 this a.m. sinus tach on youth nutritional monitor. Patient presently having loose watery stools, dignity shield applied with noted liquid brown stool present. ICU nurse reports no obvious noted bleeding. Hemoglobin 6.7 hematocrit 23.9. Patient currently receiving 1st of 2 units of packed RBCs for transfusion. Upon exam, estimated 5 x 5 cm hematoma to the left lower quadrant of abdomen. Left upper extremity phlebitis noted. Patient currently receiving Lovenox 60 mg subcutaneously every 12 hours. Anemia-requiring blood transfusion- Microcytic anemia olivialey chronic 68-year-old female admitted to [facility] for hypoxemia mental status changes. Patient intubated upon arrival. Our service has been consulted for worsening anemia now requiring blood transfusion of 2 units packed RBCs. There have been no obvious signs of bleeding reported. Patient presently trach and ventilated FiO2 35%. PEG tube with Glucerna at 60 mL's per hour. Abdomen soft with bowel sounds present, ~5 x 5 cm hematoma left lower quadrant. Patient currently receiving Lovenox 60 mg subcutaneous every 12 hours. -Hemoglobin 6.7 hematocrit 23.9 WBC 11.7 platelet count 242 -Total bilirubin 0.3 AST 18 ALT 25 alk phos 103 10/02/2018 Patient awake and alert Nonverbal Mechanically ventilated via trach-on no sedation No reported or active bleeding noted-hemoglobin 9.7 hematocrit 30.9 from 10.3 and 32.7 Slight rising BUN with stable creatinine may be indicative of upper GI bleeding possible dilated specimen value 6.7 on 10/01/2018 Dignity shield noted liquid brown stool present KUB: Persistent airspace consolidation involving the right lower lobe. Abdominal bowel gas pattern is normal. Nurse reports no PEG tube feeding residuals 10/03/2018 Patient resting soundly with eyes closed Mechanically ventilated via trach on no sedation No reported bleeding WBC 8.8 hemoglobin 9.5 hematocrit 30.4 No enteric pathogens or WBCs noted on final report for stool studies Plan -Hold tube feedings after midnight 10/04/2018 -Monitor for active bleeding -Plan of care per critical care medicine -Monitor hemoglobin and hematocrit closely -Transfuse as needed -Pantoprazole 40 mg IV every 12 -Palliative following -Stool studies pending-Cryptosporidium and Giardia -Obtain consent for EGD and colonoscopy (planning for 10/04/2018) -GoLYTELY prep (10/03/2018 @ 1600) -Supportive care -Further recommendations to follow This patient has been seen by myself and Dr. Cooper this note is written on his behalf - Attending Attestation Dr. Cooper <Yael Haines - Last Filed: 10/03/18 11:28> (1) Anemia Status: Acute Code(s): D64.9 - Anemia, unspecified - Attending Attestation I have seen and examined the patient and reviewed the patients care with the CRATING AND MOVING ESTIMATOR. I agree with the above assessment and recommendations as documented above. <Jaron Cooper - Last Filed: 10/03/18 15:01>
[2018-10-03] MEDS ORDERED: PEG 3350/E-Lyte Soln 4000 ML Bottle PO ONE (16:00)
--- NOTE | 2018-10-03 17:46 | P.PNPL ---
Subjective Interval history: 68 YOAA female who was with Hospice svc, now rescended Had Trach Tolerated CPAP 3 hrs, on PRVC AC off sedation Awake, does't track Tolerates TF Physical Exam Vital signs: Vital Signs 10/02/18 17:45 10/02/18 18:00 10/02/18 18:15 Temperature Pulse Rate 121 H 115 H 117 H Respiratory Rate 21 16 16 Blood Pressure 146/67 H 116/56 L 119/57 L Pulse Oximetry 100 100 99 10/02/18 18:30 10/02/18 18:45 10/02/18 19:00 Temperature Pulse Rate 115 H 119 H 118 H Respiratory Rate 16 20 23 Blood Pressure 122/58 L 164/78 H Pulse Oximetry 99 98 99 10/02/18 19:01 10/02/18 19:15 10/02/18 19:30 Temperature Pulse Rate 119 H 121 H 112 H Respiratory Rate 25 H 31 H 16 Blood Pressure 135/62 161/68 H 111/55 L Pulse Oximetry 99 98 100 10/02/18 19:45 10/02/18 20:00 10/02/18 20:15 Temperature 100.4 F H Pulse Rate 112 H 107 H 110 H Respiratory Rate 16 16 23 Blood Pressure 126/61 105/55 L 130/61 Pulse Oximetry 100 99 99 10/02/18 20:30 10/02/18 20:45 10/02/18 20:48 Temperature Pulse Rate 110 H 112 H 110 H Respiratory Rate 21 24 17 Blood Pressure 150/63 H 144/66 H Pulse Oximetry 99 100 100 10/02/18 21:00 10/02/18 21:15 10/02/18 21:30 Temperature Pulse Rate 107 H 107 H 108 H Respiratory Rate 17 16 16 Blood Pressure 116/54 L 107/53 L 109/57 L Pulse Oximetry 100 98 98 10/02/18 21:45 10/02/18 22:00 10/02/18 22:15 Temperature Pulse Rate 108 H 104 H 102 H Respiratory Rate 19 16 16 Blood Pressure 111/55 L 96/54 L 99/50 L Pulse Oximetry 100 98 96 10/02/18 22:30 10/02/18 22:47 10/02/18 23:00 Temperature Pulse Rate 96 H 102 H 95 H Respiratory Rate 16 22 16 Blood Pressure 94/50 L 124/55 L 101/49 L Pulse Oximetry 98 97 97 10/02/18 23:15 10/02/18 23:30 10/02/18 23:45 Temperature Pulse Rate 92 H 87 84 Respiratory Rate 16 16 16 Blood Pressure 99/50 L 99/52 L 96/53 L Pulse Oximetry 98 98 98 10/03/18 00:00 10/03/18 00:15 10/03/18 00:26 Temperature 98.6 F Pulse Rate 85 82 82 Respiratory Rate 16 16 16 Blood Pressure 94/55 L 100/56 L Pulse Oximetry 99 99 100 10/03/18 00:30 10/03/18 00:45 10/03/18 01:00 Temperature Pulse Rate 82 85 90 Respiratory Rate 16 16 16 Blood Pressure 103/56 L 100/55 L 105/54 L Pulse Oximetry 100 99 100 10/03/18 01:15 10/03/18 01:30 10/03/18 01:45 Temperature Pulse Rate 90 90 90 Respiratory Rate 16 16 16 Blood Pressure 100/52 L 90/53 L 99/55 L Pulse Oximetry 100 100 100 10/03/18 02:00 10/03/18 02:15 10/03/18 02:30 Temperature Pulse Rate 89 88 87 Respiratory Rate 16 16 16 Blood Pressure 104/59 L 103/54 L 100/55 L Pulse Oximetry 100 100 99 10/03/18 02:45 10/03/18 03:00 10/03/18 03:15 Temperature Pulse Rate 87 89 85 Respiratory Rate 16 16 16 Blood Pressure 100/58 L 104/56 L 99/58 L Pulse Oximetry 99 100 100 10/03/18 03:31 10/03/18 03:37 10/03/18 03:45 Temperature Pulse Rate 105 H 109 H 114 H Respiratory Rate 40 H 35 H Blood Pressure 188/115 H 166/77 H 173/79 H Pulse Oximetry 99 100 100 10/03/18 04:00 10/03/18 04:15 10/03/18 04:30 Temperature 98.6 F Pulse Rate 116 H 116 H 114 H Respiratory Rate 30 H 25 H 22 Blood Pressure 157/65 H 137/55 L 124/60 Pulse Oximetry 99 98 96 10/03/18 04:40 10/03/18 04:45 10/03/18 05:00 Temperature Pulse Rate 113 H 110 H Respiratory Rate 17 22 16 Blood Pressure 117/63 121/61 Pulse Oximetry 97 96 95 10/03/18 05:15 10/03/18 05:30 10/03/18 05:45 Temperature Pulse Rate 113 H 113 H 111 H Respiratory Rate 37 H 18 27 H Blood Pressure 122/63 116/60 120/61 Pulse Oximetry 95 97 97 10/03/18 06:00 10/03/18 06:15 10/03/18 06:30 Temperature Pulse Rate 107 H 107 H 109 H Respiratory Rate 16 40 H 18 Blood Pressure 116/56 L 119/58 L 122/60 Pulse Oximetry 97 97 98 10/03/18 06:45 10/03/18 07:00 10/03/18 07:15 Temperature Pulse Rate 107 H 104 H 103 H Respiratory Rate 17 17 22 Blood Pressure 120/57 L 118/57 L 120/57 L Pulse Oximetry 98 98 97 10/03/18 07:30 10/03/18 07:45 10/03/18 07:49 Temperature Pulse Rate 100 H 99 H 96 H Respiratory Rate 16 17 16 Blood Pressure 114/59 L 115/58 L Pulse Oximetry 98 99 99 10/03/18 08:00 10/03/18 08:55 10/03/18 09:00 Temperature 97.8 F Pulse Rate 111 H 112 H 108 H Respiratory Rate 20 31 H 27 H Blood Pressure 121/59 L 112/58 L 121/58 L Pulse Oximetry 100 100 100 10/03/18 09:15 10/03/18 09:30 10/03/18 09:45 Temperature Pulse Rate 102 H 100 H 98 H Respiratory Rate 23 30 H 23 Blood Pressure 130/61 107/55 L 105/51 L Pulse Oximetry 100 100 100 10/03/18 10:00 10/03/18 10:15 10/03/18 10:30 Temperature Pulse Rate 96 H 93 H 90 Respiratory Rate 24 12 24 Blood Pressure 100/53 L 103/53 L 105/54 L Pulse Oximetry 100 100 100 10/03/18 10:45 10/03/18 11:00 10/03/18 11:15 Temperature Pulse Rate 90 90 88 Respiratory Rate 25 H 29 H 25 H Blood Pressure 103/56 L 108/54 L 106/56 L Pulse Oximetry 100 100 100 10/03/18 11:30 10/03/18 11:38 10/03/18 11:45 Temperature Pulse Rate 86 88 91 H Respiratory Rate 26 H 15 30 H Blood Pressure 107/55 L 124/59 L Pulse Oximetry 100 100 100 10/03/18 12:00 10/03/18 12:15 10/03/18 12:30 Temperature 98.3 F Pulse Rate 100 H 98 H 100 H Respiratory Rate 37 H 40 H 40 H Blood Pressure 126/59 L 125/60 132/64 Pulse Oximetry 100 98 100 10/03/18 12:45 10/03/18 13:00 10/03/18 13:15 Temperature Pulse Rate 97 H 98 H 98 H Respiratory Rate 25 H 39 H 16 Blood Pressure 125/60 126/63 121/63 Pulse Oximetry 100 100 100 10/03/18 13:30 10/03/18 13:45 10/03/18 14:00 Temperature Pulse Rate 98 H 101 H 100 H Respiratory Rate 17 22 35 H Blood Pressure 118/62 117/61 123/62 Pulse Oximetry 100 100 100 10/03/18 14:15 10/03/18 14:30 10/03/18 14:37 Temperature Pulse Rate 99 H 94 H 92 H Respiratory Rate 25 H 15 16 Blood Pressure 123/63 106/56 L Pulse Oximetry 100 100 10/03/18 14:45 10/03/18 15:00 10/03/18 15:15 Temperature Pulse Rate 104 H 103 H 99 H Respiratory Rate 29 H 26 H 19 Blood Pressure 149/69 H 114/57 L 111/54 L Pulse Oximetry 100 99 100 10/03/18 15:29 10/03/18 15:30 10/03/18 15:46 Temperature Pulse Rate 98 H 100 H Respiratory Rate 19 19 25 H Blood Pressure 114/54 L 95/65 L Pulse Oximetry 100 100 100 10/03/18 16:00 Temperature 97.8 F Pulse Rate 117 H Respiratory Rate 33 H Blood Pressure 96/60 L Pulse Oximetry 100 Intake & Output 10/02/18 10/03/18 10/03/18 18:59 06:59 18:59 Intake Total 1607 / 1607 750 / 750 700 / 700 Output Total 50 / 50 500 / 500 Balance 1557 / 1557 250 / 250 700 / 700 Weight 60.8 kg Intake: IV 715 / 715 100 / 100 450 / 450 Maxipime Inj 1,000 MG In NS Inj 200 / 200 100 / 100 200 / 200 100 ML @ 200 mls/hr IV.SIG Q8H [facility] Rx#:[id number] Vancomycin Inj 1,000 MG In NS 250 / 250 Inj 250 ML @ 250 mls/hr IV.SIG Q24H [facility] Rx#:[id number] Vancomycin Inj 1,500 MG In NS 515 / 515 Inj 500 ML @ 257.5 mls/hr IV. SIG ONCE ONE Rx#:[id number] Tube Feeding 642 / 642 0 / 0 Tube Irrigant 150 / 150 Water Bolus Amount 250 / 250 Free Water Amount 250 / 250 250 / 250 250 / 250 Output: Stool 500 / 500 Urine Amount (Catheter) 50 / 50 Female External 50 / 50 Other: # Voids 3 # Incontinent Voids 2 Date of Last Bowel Movement 10/02/18 10/02/18 10/02/18 GENERAL: Elderly female on Vent SKIN: Warm and dry. HEAD: Normocephalic. EYES: No scleral icterus. No injection or drainage. NECK: Supple, trachea midline. No JVD or lymphadenopathy. tarch CARDIOVASCULAR: Regular rate and rhythm without murmurs, gallops, or rubs. RESPIRATORY: Breath sounds equal bilaterally. No accessory muscle use. GASTROINTESTINAL: Abdomen soft, non-tender, nondistended. MUSCULOSKELETAL: No cyanosis, or edema. BACK: Nontender without obvious deformity. No CVA tenderness. - Urinary Catheter Management Indwelling Temp Sensing Catheter Cath placed during this visit: yes, but has since been removed by the nurse Reason for continuing: Severe pressure ulcer/wound Insertion date: 09/18/18 Insertion time: 18:50 Removal date: 09/23/18 Removal time: 16:00 Female External Cath placed during this visit: no Straight Cath placed during this visit: no Assessment and Plan - Plan IMPRESSION: VDRF large Rt lung mass COPD HTN H/O CVA PLAN: Cont vent support PRVC-AC CPAP trial in AM Aerosol nebs Cont Abx Trach care. Plans for Colonoscopy in AM
[2018-10-04] MEDS: Insulin NovoLIN Regular Correctional Sugar Inj SQ SCH ×5 (05:28→23:04)
[2018-10-04 05:58] LABS: Baso # (Auto) 0.1 th/mm3 (0.0-0.2); Baso % (Auto) 1.1 % (0.0-2.0); Eos # (Auto) 0.5 th/mm3 (0.0-0.4); Eos % (Auto) 8.2 % (0.0-4.0); Hematocrit 28.7 % (35.0-46.0); Hemoglobin 8.9 gm/dL (11.6-15.3); Lymph # (Auto) 0.8 th/mm3 (1.0-4.8); Lymph % (Auto) 14.5 % (9.0-44.0); Mean Corpuscular Hemoglobin 25.1 pg (27.0-34.0); Mean Platelet Volume 9.5 fL (7.0-11.0); Mono # (Auto) 0.4 th/mm3 (0.0-0.9); Mono % (Auto) 7.2 % (0.0-8.0); Neut # (Auto) 3.9 th/mm3 (1.8-7.7); Platelet Count 258 th/mm3 (150-450); Red Blood Count 3.55 mil/mm3 (4.00-5.30); Red Cell Distribution Width 21.2 % (11.6-17.2); White Blood Count 5.7 th/mm3 (4.0-11.0)
[2018-10-04] MEDS: Chlorhexidine 0.12% Oral Kit 15 ML UDC OROPHARYNG SCH ×3 (06:15→19:32)
[2018-10-04 06:16] LABS: Albumin 1.8 g/dL (3.4-5.0); Anion Gap 13 meq/L (5-15); Aspartate Aminotransferase 14 U/L (15-37); Blood Urea Nitrogen 11 mg/dL (7-18); Calcium 8.2 mg/dL (8.5-10.1); Carbon Dioxide 22.2 meq/L (21.0-32.0); Chloride 112 meq/L (98-107); Glomerular Filtration Rate Greater Than 89 mL/min (>89); Glucose,Random 73 mg/dL (74-106); Magnesium 2.3 mg/dL (1.5-2.5); Potassium 3.3 meq/L (3.5-5.1); Sodium 147 meq/L (136-145)
[2018-10-04] MEDS: Oral Hygiene Kit OROPHARYNG SCH ×5 (06:16→23:05)
[2018-10-04] MEDS: Pantoprazole Inj 40 MG Vial IV.PUSH SCH ×2 (06:16→11:26)
[2018-10-04] MEDS: dilTIAZem 30 MG Tablet PO SCH ×4 (06:17→22:35)
[2018-10-04 06:19] LABS: Alanine Aminotransferase 17 U/L (10-53); Alkaline Phosphatase 82 U/L (45-117); Phosphorus 2.5 mg/dL (2.5-4.9); Total Protein 6.7 g/dL (6.4-8.2)
--- NOTE | 2018-10-04 08:15 | P.PNCC ---
Subjective Subjective Remarks/Hospital Course: 09/18: 68-year-old female past medical history of stroke, left BKA, who was on home hospice until just prior to arrival, presents for an evaluation of fever and altered mental status. According to EMS the patient had not required oxygen until beginning of this week when she had gradual increased demand of her oxygen. End-tidal CO2 prior to arrival was 6. Initial room nasal cannula saturation was 91, she was placed on nonrebreather position of comfort and transfer to emergency department. EMS related that the had elected to revoke the patient's DNR and hospice care prior to transferring her to the hospital. The patient apparently is normally a GCS of 14, apparently she does take some thickened food p.o. department the patient was severely altered with GCS of 6 on arrival [id number] and was intubated by ED attending for an airway protection. 09/19: Remains sedated, orally intubated on mechanical ventilation. CT chest showed right lower lobe lung mass suspicious for malignancy. Patient has a PEG tube following previous stroke. 09/20: Remains sedated, orally intubated on mechanical ventilation. Started on tube feeds. 09/21: Remains sedated, orally intubated on mechanical ventilation. Tolerating tube feeds. Right approximately swelling noted. 09/22 Is not tolerating CPAP trial when decrease PS below 18. Daughter at bedside, says will be here later. Says they don't think they want to proceed with lung biopsy at this time, but on the other hand she discusses the possibility of re-do trach. She says they are not sure how to proceed. I suggested we meet together. Daughter states she has been bedridden since stroke about 4 years ago. Has been in jail. PEG due to dysphagia, does not eat. Speaks a little but daughter states she has declined significantly over the last 2 weeks. 09/23 No significant change. Patient does not tolerate CPAP. Family is very clear that they do not wish to pursue biopsy or diagnosis of suspected lung cancer. At this time, they wish to continue supportive care with vent and FULL CODE. 09/24 No change. Does not tolerate CPAP. Will diurese for positive fluid balance. 09/25 Now on CPAP 20/5 and not tolerating wean. Continue attempts at diuresis to address positive fluid balance since admission 09/26: Remains sedated, orally intubated on mechanical ventilation. Hold CPAP trials yesterday 09/27 Patient is sedated with Diprivan and intubated. Tolerating tube feeds. Afebrile. 09/28 Patient remains intubated and sedated. T;100.8 09/29 Has not made any progress towards weaning. Family offered comfort measures however they expressed desire to proceed with trach Subjective: 09/30 status post bedside tracheostomy yesterday by Dr. Gavin. Discontinued propofol drip. On CPAP 14/5 for 2 hours today. BP is low, will need to hold metoprolol and titrate back on cardizem (nurses held some doses yesterday too). Positive fluid balance but not able to diurese today due to low BP. Awaiting bed at [facility]. 10/01 Patient remains on ventilator via trach. On no sedation. Hgb 6.7 this morning and T: 100.4 at midnight. Tachycardic. 10/02 Patient is on ventilator via trach. On no sedation. Spiked fever with T: 101.5. s/p transfusion 2u PRBC yesterday. Mcmillan/thick secretions noted per nursing staff. 10/03 Patient had low grade fever with T:100.4 last night. Tube feeds held for abd distention. KUB yesterday showed normal bowel gas pattern. 10/04 Patient is on ventilator via trach. For panendoscopy today. T:99.8 last night. Objective Vital Signs / I&O: Vital Signs 10/03/18 08:55 10/03/18 09:00 10/03/18 09:15 Temperature Pulse Rate 112 H 108 H 102 H Respiratory Rate 31 H 27 H 23 Blood Pressure 112/58 L 121/58 L 130/61 Pulse Oximetry 100 100 100 10/03/18 09:30 10/03/18 09:45 10/03/18 10:00 Temperature Pulse Rate 100 H 98 H 96 H Respiratory Rate 30 H 23 24 Blood Pressure 107/55 L 105/51 L 100/53 L Pulse Oximetry 100 100 100 10/03/18 10:15 10/03/18 10:30 10/03/18 10:45 Temperature Pulse Rate 93 H 90 90 Respiratory Rate 12 24 25 H Blood Pressure 103/53 L 105/54 L 103/56 L Pulse Oximetry 100 100 100 10/03/18 11:00 10/03/18 11:15 10/03/18 11:30 Temperature Pulse Rate 90 88 86 Respiratory Rate 29 H 25 H 26 H Blood Pressure 108/54 L 106/56 L 107/55 L Pulse Oximetry 100 100 100 10/03/18 11:38 10/03/18 11:45 10/03/18 12:00 Temperature 98.3 F Pulse Rate 88 91 H 100 H Respiratory Rate 15 30 H 37 H Blood Pressure 124/59 L 126/59 L Pulse Oximetry 100 100 100 10/03/18 12:15 10/03/18 12:30 10/03/18 12:45 Temperature Pulse Rate 98 H 100 H 97 H Respiratory Rate 40 H 40 H 25 H Blood Pressure 125/60 132/64 125/60 Pulse Oximetry 98 100 100 10/03/18 13:00 10/03/18 13:15 10/03/18 13:30 Temperature Pulse Rate 98 H 98 H 98 H Respiratory Rate 39 H 16 17 Blood Pressure 126/63 121/63 118/62 Pulse Oximetry 100 100 100 10/03/18 13:45 10/03/18 14:00 10/03/18 14:15 Temperature Pulse Rate 101 H 100 H 99 H Respiratory Rate 22 35 H 25 H Blood Pressure 117/61 123/62 123/63 Pulse Oximetry 100 100 100 10/03/18 14:30 10/03/18 14:37 10/03/18 14:45 Temperature Pulse Rate 94 H 92 H 104 H Respiratory Rate 15 16 29 H Blood Pressure 106/56 L 149/69 H Pulse Oximetry 100 100 10/03/18 15:00 10/03/18 15:15 10/03/18 15:29 Temperature Pulse Rate 103 H 99 H Respiratory Rate 26 H 19 19 Blood Pressure 114/57 L 111/54 L Pulse Oximetry 99 100 100 10/03/18 15:30 10/03/18 15:46 10/03/18 16:00 Temperature 97.8 F Pulse Rate 98 H 100 H 117 H Respiratory Rate 19 25 H 33 H Blood Pressure 114/54 L 95/65 L 96/60 L Pulse Oximetry 100 100 100 10/03/18 18:00 10/03/18 20:00 10/03/18 20:49 Temperature 99.8 F H Pulse Rate 97 H 99 H 102 H Respiratory Rate 37 H 20 Blood Pressure 128/60 Pulse Oximetry 98 100 10/03/18 22:00 02/03/19 23:00 10/03/18 23:15 Temperature Pulse Rate 113 H 101 H 104 H Respiratory Rate 16 17 Blood Pressure 115/56 L 112/59 L Pulse Oximetry 100 100 10/03/18 23:30 10/03/18 23:45 10/04/18 00:00 Temperature Pulse Rate 101 H 110 H 108 H Respiratory Rate 2 L 42 H 24 Blood Pressure 102/55 L 127/66 114/57 L Pulse Oximetry 100 100 99 10/04/18 00:05 10/04/18 00:15 10/04/18 00:30 Temperature Pulse Rate 113 H 109 H 109 H Respiratory Rate 22 23 13 Blood Pressure 103/65 115/58 L Pulse Oximetry 99 98 100 10/04/18 00:45 10/04/18 01:00 10/04/18 01:15 Temperature Pulse Rate 107 H 104 H 103 H Respiratory Rate 13 15 16 Blood Pressure 117/58 L 108/53 L 107/55 L Pulse Oximetry 98 98 98 10/04/18 01:30 10/04/18 01:45 10/04/18 02:00 Temperature Pulse Rate 101 H 103 H 104 H Respiratory Rate 16 9 L 15 Blood Pressure 107/57 L 113/58 L 107/57 L Pulse Oximetry 98 98 100 10/04/18 02:15 10/04/18 02:30 10/04/18 02:45 Temperature Pulse Rate 104 H 102 H 103 H Respiratory Rate 2 L 9 L 5 L Blood Pressure 107/58 L 107/59 L 107/55 L Pulse Oximetry 100 98 99 10/04/18 03:00 10/04/18 03:15 10/04/18 03:30 Temperature Pulse Rate 102 H 106 H 106 H Respiratory Rate 16 8 L 11 L Blood Pressure 111/55 L 109/58 L 120/56 L Pulse Oximetry 100 100 98 10/04/18 03:34 10/04/18 03:45 10/04/18 04:00 Temperature 99.4 F Pulse Rate 114 H 109 H 106 H Respiratory Rate 2 L 17 8 L Blood Pressure 118/58 L 115/55 L Pulse Oximetry 99 98 98 10/04/18 04:15 10/04/18 04:30 10/04/18 04:45 Temperature Pulse Rate 103 H 102 H 101 H Respiratory Rate 8 L 8 L 9 L Blood Pressure 112/58 L 114/55 L 120/57 L Pulse Oximetry 98 98 99 10/04/18 04:59 10/04/18 05:00 10/04/18 06:00 Temperature Pulse Rate 103 H 103 H 108 H Respiratory Rate 14 16 Blood Pressure 124/57 L Pulse Oximetry 98 99 10/04/18 07:35 Temperature Pulse Rate Respiratory Rate 17 Blood Pressure Pulse Oximetry 97 Intake & Output 10/03/18 10/04/18 10/04/18 18:59 06:59 18:59 Intake Total 700 / 700 550 / 550 100 / 100 Output Total 600 / 600 1999 / 1999 Balance 100 / 100 -1450 / -1450 100 / 100 Intake: IV 450 / 450 100 / 100 100 / 100 Maxipime Inj 1,000 MG In NS Inj 200 / 200 100 / 100 100 / 100 100 ML @ 200 mls/hr IV.SIG Q8H [facility] Rx#:[id number] Vancomycin Inj 1,000 MG In NS 250 / 250 Inj 250 ML @ 250 mls/hr IV.SIG Q24H [facility] Rx#:[id number] Tube Feeding 0 / 0 Free Water Amount 250 / 250 250 / 250 Other 200 / 200 Output: Stool 600 / 600 1999 Other: # Incontinent Voids 2 Date of Last Bowel Movement 10/02/18 10/04/18 Result Diagrams: 10/04/18 05:01 10/04/18 05:01 Other Results: Laboratory Results - last 12 hr 10/04/18 10/04/18 10/04/18 00:32 05:01 05:01 WBC 5.7 RBC 3.55 L Hgb 8.9 L Hct 28.7 L MCV 81.0 MCH 25.1 L MCHC 31.0 L RDW 21.2 H Plt Count 258 MPV 9.5 Neut % (Auto) 69.0 Lymph % (Auto) 14.5 [place] % (Auto) 7.2 Eos % (Auto) 8.2 H Baso % (Auto) 1.1 Neut # (Auto) 3.9 Lymph # (Auto) 0.8 L [place] # (Auto) 0.4 Eos # (Auto) 0.5 H Baso # (Auto) 0.1 WBC Differential . Differential Comment Auto diff final Sodium 147 H Potassium 3.3 L Chloride 112 H Carbon Dioxide 22.2 Anion Gap 13 BUN 11 Creatinine 0.59 Estimated GFR Greater than 89 POC Glucose 100 Random Glucose 73 L Calcium 8.2 L Phosphorus 2.5 Magnesium 2.3 Total Bilirubin 0.3 AST 14 L ALT 17 Alkaline Phosphatase 82 Total Protein 6.7 Albumin 1.8 L Imaging: Head CT 09/18/18 18:40 CONCLUSION: 1. Stable appearance of the brain. Marked ventriculomegaly and white matter disease. . Chest CTA 09/18/18 19:26 CONCLUSION: 1. There is no evidence for pulmonary embolism. 2. Severe emphysema. 3. There is a large soft tissue mass in the right lower lobe suspicious for malignancy until proven otherwise. Venous Doppler Study 10/01/18 00:00 CONCLUSION: 1. Superficial venous thrombosis identified in the right cephalic vein. 2. No evidence of DVT. Abdomen X-Ray 10/02/18 06:48 CONCLUSION: Persistent airspace consolidation involving the right lower lobe. Abdominal bowel gas pattern is normal. Chest X-Ray 10/02/18 06:48 CONCLUSION: There is persistent airspace consolidation involving the right lower lobe. There is improved aeration on the current exam. Abdomen/Pelvis CT 10/03/18 07:26 CONCLUSION: 1. There is air and fluid identified within the stomach which may account for the patient's perceived distention. No evidence of bowel obstruction or ileus. 2. Extensive atherosclerosis. 3. Persistent right lower lobe airspace consolidation. Objective Remarks: GENERAL: Well-nourished, well-developed patient. SKIN: Warm and dry. HEAD: Atraumatic. Normocephalic. EYES: Pupils equal and round. No scleral icterus. No injection or drainage. ENT: No nasal bleeding or discharge. Mucous membranes pink and moist. NECK: Tracheostomy in place, slight pink tinge to secretions, no active bleeding. CARDIOVASCULAR: Tachycardic, No murmurs rubs or gallops. RESPIRATORY: Orotracheally intubated on mechanical ventilation. B/L equal air entry GASTROINTESTINAL: Abdomen soft, non-tender,distended. PEG in place, MUSCULOSKELETAL: Extremities without clubbing, cyanosis, or edema. s/p L AKA. NEUROLOGICAL: Awakens, looks around. Blinks and squeezes hand to command Assessment and Plan - Assessment and Plan Plan: NEURO: History of stroke Off sedation. Monitor neuro status RESP: Acute respiratory failure on mechanical ventilation Emphysema Lung mass History of prior trach after stroke, has been subsequently decannulated Per Dr. De Jesus. not wishing to pursue CT-guided biopsy. Continue with vent support Daily CPAP trials. Vent bundle/nebs. Percutaneous tracheostomy performed at bedside 09/29. Pulm toilet, trach care CXR 10/02 : persistent airspace consolidation involving the right lower lobe. There is improved aeration on the current exam. CV: HTN Monitor BP/heart rate keep MAP>65mmHg. On Cardizem 30mg q6 with hold orders. GI: PEG in place. Glucerna 1.5 @60ml/hr on hold for endoscopy today KUB abdomen 10/02 Normal bowel gas pattern. FEN/RENAL: Acute hypernatremia Hypokalemia resolved Monitor renal function, I/O's, electrolytes replacement per protocol. Increase Free water 250ml Q8, will need K replacement today ID: HCAP UTI Urine culture from 09/18 with providentia and Proteus. Urine and sputum cultures negative Completed 8 day course of zosyn. Monitor for signs of infections ( Fever, WBC) sputum cx 09/28: No growth On abx Cefepime and Vanco, follow up on blood cultures, sputum cx CT abd/pelvis 10/03: No evidence of bowel obstruction or ileus. KUB 10/02: Normal bowel gas pattern C-diff PCR negative on 10/01 HEME: R brachial DVT Anemia Lovenox 60 mg subcu every 12 hours. s/p Transfuse 2u PRBC 10/01 GI is following for EGD/Colonoscopy today ENDO: Diabetes mellitus Insulin sliding scale PROPH: SCD/Lovenox for DVT prophylaxis. Protonix 40mg Q12 for stress ulcer prophylaxis. 10/01 Doppler US UE b/l: Superficial venous thrombosis identified in the right cephalic vein. No evidence of DVT. 09/21 Doppler US RUE: Occlusive thrombus cephalic and brachial veins ACCESS: PIV x2. Full code Level 3 follow-up
[2018-10-04] MEDS: Potassium Chloride Liq 20 MEQ/15 ML UDC PO PRN (08:49)
[2018-10-04] MEDS: Enoxaparin Inj 60 MG/0.6 ML Syringe SQ SCH ×2 (08:49→20:05)
[2018-10-04] MEDS: Senna/Docusate Sodium 8.6/50 MG Tablet PO SCH ×2 (08:51→20:05)
[2018-10-04] MEDS ORDERED: Phenylephrine/NS 1000 MCG/10ML Syringe IV.PUSH ONE (10:22)
[2018-10-04] MEDS ORDERED: Lidocaine PF 1% Inj 5 ML Syringe OTHER ONE (10:22)
--- NOTE | 2018-10-04 11:23 | P.PCN ---
Date of procedure: 10/04/18 Pre-op diagnosis: Iron deficiency anemia Post-op diagnosis: same (chronic gastritis) Procedure: INDICATIONS: Iron deficiency anemia The nature and risks of the procedure were explained to the patient. The risk of aspiration, perforation, bleeding, phlebitis and were explained to the patient. After informing the patient about procedure and possible complications consent was signed. history and physical were updated. Patient was taken to the procedure room and placed in position. Time out was completed. ANESTHESIA: Adequate sedation was performed by anesthesia provider. PROCEDURES PERFORMED: UPPER ENDOSCOPY diagnostic COLONOSCOPY diagnostic UPPER ENDOSCOPY: The scope was placed in the mouth advanced under video guide to the second portion of the duodenum, then the scope was withdrawal to the stomach and retro-flexion was performed, the scope was withdrawal to the esophagus then out of the mouth without any immediate complication COLONOSCOPY: A rectal exam was performed and then the scope was placed in the rectum advanced under video guidance to the cecum. The cecum was identified by the ileo-cecal valve and appendiceal orifice. The scope was then withdrawn slowly with examination of the mucosa to the rectum. Retro-flexion was performed in the rectum, the scope was withdrawal without any immediate complications. FINDINGS: COLONOSCOPY PREP: Adequate TERMINAL ILEUM: Not examined COLON: Normal vascular mucosa normal vascular pattern seen throughout the colon from the rectum through to the cecum. No diverticular was seen no arteriovenous malformations were seen no stigmata of recent bleeding. No blood. RECTUM: Retroflexed not possible due to anal incontinence ESOPHAGUS: Z line identified at 38 cm small hiatal hernia seen. Normal mucosa STOMACH: Direct and retroflexed views were obtained. Chronic gastritis seen. The mucosa was mildly atrophic. No ulcerations or erosions small hiatal hernia seen retroflexed no stigmata of recent bleeding no blood seen in the stomach. DUODENUM: Normal bulb and second portion COMPLICATIONS: None BLOOD LOSS: None IMRPESSION: Chronic gastritis no distinct source of bleeding identified on upper or lower endoscopy RECOMMENDATIONS: 1- Supportive care 2- ok to transfer to recovery area then discharge per protocol 3- Repeat colonoscopy not indicated 4- Resume preoperative diet 5- Resume preoperative medications. 6- The patient is provided with postprocedure educational materials and contact information incase of an emergency. 7-supportive care with iron supplementation 8- EGD to be repeated in case of upper GI bleed. Anesthesia: MAC Surgeon: Jaron Cooper Pathology: none sent Condition: critical Disposition: ICU
[2018-10-04] MEDS: Vancomycin Inj 1,000 MG in Sodium Chlor 0.9% Inj 250 ML IV.SIG SCH (11:27)
--- NOTE | 2018-10-04 14:20 | P.DIET ---
Nutritional Evaluation Type of nutrition evaluation: follow-up Nutrition consult regarding: Tube Feeding Screening comments: 09/19/18 TF review Objective - Diagnosis Fever, AMS - Objective Part of Body Amputated: Left above knee (12%) [place] body weight: 50 kg (adj IBW 44kg, adjBW: 53.6kg) % IBW: 139 Energy Needs - Lower Range (kCal/kg): 28 Energy Needs - Upper Range (kCal/kg): 33 Lower Limit kCal/kg (kCals): 1,501 Upper Limit kCal/kg (kCals): 1,769 Lower Limit Protein Factor (Grams per Kg): 1.2 Upper Limit Protein Factor (Grams per Kg): 1.5 Lower Protein Needs (Protein): 64 Upper Protein Needs (Protein): 80 Dietitian Reviewed in Medical Record: Current diet, Curent medications, Intake & Output, Labs, Medical history, Tube feeding Diet Order: NPO Objective Comments: PMH: stroke, DM, Dysphagia, HTN, Hemiparesis, L AKA, PEG placement Labs include: reviewed Meds include: novolin LBM 10/04/18 Pt's nutritional needs based on AdjBW of 53.6kg r/t L AKA Assessment Assessment: Pt remains at nutritional risk r/t need for a TF for nutrition support. Pt continues to be intubated, off sedation now, on mech vent via trach. Spoke w/ CHER Maldonado on pts TF status, per RN pts TF was on hold d/t EGD, colonoscopy. Pts TF resumed now at Glucerna 1.5 @ 60mL/hr goal rate per MD. To best meet pt' s needs, RD continue to recommend TF Glucerna 1.5 with goal rate of 45ml/hr to provide 1620kcals, 89gms protein and 820mls free water. Wound care note reviewed , pt has an unstageable pressure injury on sacrum. RD to recommend Berny 1-pkt BID to promote wound healing. Continue to monitor TF tolerance, clinical course. Labs reviewed, dietitian following. Brought forward: Noted pt was on hospice with a DNR which removed upon admission. Recommendations: 1. RD continue to recommend TF Glucerna 1.5 @ 45mL/hr 2. RD to recommend Berny 1-pkt BID to promote wound healing 3. Continue to monitor TF tolerance, clinical course 4. Dietitian following Dietitian to Monitor: Lab values, Glucose level, Intake & Output, Tube feeding tolerance, Weight change, Wound/skin status, Medical course
--- NOTE | 2018-10-04 19:20 | P.PNPL ---
Subjective Interval history: 68 YOAA female who was with Hospice svc, now rescended Had Trach Tolerated CPAP 3 hrs, on PRVC AC off sedation Tolerates TF had panendoscopy done Physical Exam Vital signs: Vital Signs 10/03/18 20:00 10/03/18 20:49 10/03/18 22:00 Temperature 99.8 F H Pulse Rate 99 H 102 H 113 H Respiratory Rate 37 H 20 Blood Pressure 128/60 Pulse Oximetry 98 100 10/03/18 23:00 10/03/18 23:15 10/03/18 23:30 Temperature Pulse Rate 101 H 104 H 101 H Respiratory Rate 16 17 2 L Blood Pressure 115/56 L 112/59 L 102/55 L Pulse Oximetry 100 100 100 10/03/18 23:45 10/04/18 00:00 10/04/18 00:05 Temperature Pulse Rate 110 H 108 H 113 H Respiratory Rate 42 H 24 22 Blood Pressure 127/66 114/57 L Pulse Oximetry 100 99 99 10/04/18 00:15 10/04/18 00:30 10/04/18 00:45 Temperature Pulse Rate 109 H 109 H 107 H Respiratory Rate 23 13 13 Blood Pressure 103/65 115/58 L 117/58 L Pulse Oximetry 98 100 98 10/04/18 01:00 10/04/18 01:15 10/04/18 01:30 Temperature Pulse Rate 104 H 103 H 101 H Respiratory Rate 15 16 16 Blood Pressure 108/53 L 107/55 L 107/57 L Pulse Oximetry 98 98 98 10/04/18 01:45 10/04/18 02:00 10/04/18 02:15 Temperature Pulse Rate 103 H 104 H 104 H Respiratory Rate 9 L 15 2 L Blood Pressure 113/58 L 107/57 L 107/58 L Pulse Oximetry 98 100 100 10/04/18 02:30 10/04/18 02:45 10/04/18 03:00 Temperature Pulse Rate 102 H 103 H 102 H Respiratory Rate 9 L 5 L 16 Blood Pressure 107/59 L 107/55 L 111/55 L Pulse Oximetry 98 99 100 10/04/18 03:15 10/04/18 03:30 10/04/18 03:34 Temperature Pulse Rate 106 H 106 H 114 H Respiratory Rate 8 L 11 L 2 L Blood Pressure 109/58 L 120/56 L Pulse Oximetry 100 98 99 10/04/18 03:45 10/04/18 04:00 10/04/18 04:15 Temperature 99.4 F Pulse Rate 109 H 106 H 103 H Respiratory Rate 17 8 L 8 L Blood Pressure 118/58 L 115/55 L 112/58 L Pulse Oximetry 98 98 98 10/04/18 04:30 10/04/18 04:45 10/04/18 04:59 Temperature Pulse Rate 102 H 101 H 103 H Respiratory Rate 8 L 9 L 14 Blood Pressure 114/55 L 120/57 L Pulse Oximetry 98 99 98 10/04/18 05:00 10/04/18 06:00 10/04/18 07:00 Temperature Pulse Rate 103 H 108 H 104 H Respiratory Rate 16 13 Blood Pressure 124/57 L 122/57 L Pulse Oximetry 99 97 10/04/18 07:15 10/04/18 07:30 10/04/18 07:35 Temperature Pulse Rate 106 H 104 H Respiratory Rate 18 16 17 Blood Pressure 127/60 130/62 Pulse Oximetry 97 97 97 10/04/18 07:45 10/04/18 08:00 10/04/18 08:15 Temperature Pulse Rate 101 H 103 H 101 H Respiratory Rate 18 22 19 Blood Pressure 131/60 129/62 136/62 Pulse Oximetry 97 97 97 10/04/18 08:30 10/04/18 08:39 10/04/18 08:45 Temperature Pulse Rate 102 H 104 H Respiratory Rate 21 12 Blood Pressure 132/62 126/56 L Pulse Oximetry 99 98 95 10/04/18 09:00 10/04/18 09:15 10/04/18 09:30 Temperature Pulse Rate 101 H 100 H 109 H Respiratory Rate 13 11 L 23 Blood Pressure 123/58 L 120/59 L 139/61 Pulse Oximetry 97 97 98 10/04/18 09:45 10/04/18 10:00 10/04/18 10:15 Temperature Pulse Rate 105 H 99 H 99 H Respiratory Rate 19 16 16 Blood Pressure 125/61 114/56 L 118/57 L Pulse Oximetry 98 97 97 10/04/18 10:22 10/04/18 10:25 10/04/18 10:28 Temperature Pulse Rate 97 H 95 H 88 Respiratory Rate 16 12 19 Blood Pressure 121/58 L 120/60 109/54 L Pulse Oximetry 97 100 100 10/04/18 10:30 10/04/18 10:32 10/04/18 10:38 Temperature Pulse Rate 91 H 98 H 94 H Respiratory Rate 20 16 16 Blood Pressure 112/59 L 113/57 L 113/56 L Pulse Oximetry 100 100 100 10/04/18 10:40 10/04/18 10:43 10/04/18 10:45 Temperature Pulse Rate 90 85 88 Respiratory Rate 16 16 22 Blood Pressure 107/56 L 102/51 L 107/54 L Pulse Oximetry 100 99 99 10/04/18 10:48 10/04/18 10:50 10/04/18 10:53 Temperature Pulse Rate 85 83 78 Respiratory Rate 18 22 24 Blood Pressure 103/66 104/52 L 90/55 L Pulse Oximetry 98 98 98 10/04/18 10:55 10/04/18 10:58 10/04/18 11:00 Temperature Pulse Rate 92 H 84 84 Respiratory Rate 16 16 16 Blood Pressure 105/53 L 133/60 122/57 L Pulse Oximetry 99 99 98 10/04/18 11:03 10/04/18 11:05 10/04/18 11:15 Temperature Pulse Rate 84 85 98 H Respiratory Rate 16 19 Blood Pressure 108/55 L 114/56 L 103/50 L Pulse Oximetry 98 98 97 10/04/18 11:21 10/04/18 11:30 10/04/18 11:45 Temperature Pulse Rate 101 H 101 H 101 H Respiratory Rate 18 16 13 Blood Pressure 112/58 L 120/59 L Pulse Oximetry 97 97 97 10/04/18 12:00 10/04/18 12:15 10/04/18 12:30 Temperature Pulse Rate 100 H 99 H 97 H Respiratory Rate 16 17 Blood Pressure 118/59 L 111/53 L 117/58 L Pulse Oximetry 97 97 98 10/04/18 12:45 10/04/18 12:57 10/04/18 13:00 Temperature Pulse Rate 97 H 97 H Respiratory Rate 11 L 15 Blood Pressure 123/60 113/54 L Pulse Oximetry 99 98 98 10/04/18 13:15 10/04/18 13:30 10/04/18 13:45 Temperature Pulse Rate 99 H 97 H 100 H Respiratory Rate 13 Blood Pressure 130/60 122/58 L 121/59 L Pulse Oximetry 100 99 97 10/04/18 13:58 10/04/18 14:00 10/04/18 14:15 Temperature Pulse Rate 96 H 96 H 96 H Respiratory Rate Blood Pressure 110/54 L 131/62 Pulse Oximetry 100 100 10/04/18 14:31 10/04/18 14:45 10/04/18 15:00 Temperature Pulse Rate 96 H 97 H 100 H Respiratory Rate 15 19 17 Blood Pressure 116/54 L 119/56 L 128/60 Pulse Oximetry 99 99 98 10/04/18 15:10 10/04/18 15:15 10/04/18 15:30 Temperature Pulse Rate 97 H 94 H 92 H Respiratory Rate 14 16 Blood Pressure 127/62 133/63 Pulse Oximetry 98 99 10/04/18 15:37 10/04/18 15:45 10/04/18 16:00 Temperature Pulse Rate 99 H 96 H Respiratory Rate 16 19 22 Blood Pressure 135/55 L 131/58 L Pulse Oximetry 98 97 98 10/04/18 16:15 10/04/18 16:30 10/04/18 18:00 Temperature Pulse Rate 88 84 86 Respiratory Rate 16 16 Blood Pressure 133/63 126/59 L Pulse Oximetry 100 100 Intake & Output 10/04/18 10/04/18 10/05/18 06:59 18:59 06:59 Intake Total 550 / 550 1150 / 1150 Output Total 1999 Balance -1450 / -1450 1150 / 1150 Intake: IV 100 / 100 450 / 450 Maxipime Inj 1,000 MG In NS Inj 100 / 100 200 / 200 100 ML @ 200 mls/hr IV.SIG Q8H JORGE Rx#:[id number] Vancomycin Inj 1,000 MG In NS 250 / 250 Inj 250 ML @ 250 mls/hr IV.SIG Q24H JORGE Rx#:[id number] Free Water Amount 250 / 250 500 / 500 Anesthesia Amount 200 / 200 Other 200 / 200 Output: Stool 1999 Other: # Incontinent Voids 3 Date of Last Bowel Movement 10/04/18 10/04/18 # Incontinent Bowel Movements 3 GENERAL: Elderly female on vent SKIN: Warm and dry. HEAD: Normocephalic. EYES: No scleral icterus. No injection or drainage. NECK: Supple, trachea midline. No JVD or lymphadenopathy. trach CARDIOVASCULAR: Regular rate and rhythm without murmurs, gallops, or rubs. RESPIRATORY: Breath sounds equal bilaterally. No accessory muscle use. GASTROINTESTINAL: Abdomen soft, non-tender, nondistended. has PEG MUSCULOSKELETAL: No cyanosis, or edema. BACK: Nontender without obvious deformity. No CVA tenderness. - Urinary Catheter Management Indwelling Temp Sensing Catheter Cath placed during this visit: yes, but has since been removed by the nurse Reason for continuing: Severe pressure ulcer/wound Insertion date: 09/18/18 Insertion time: 18:50 Removal date: 09/23/18 Removal time: 16:00 Female External Cath placed during this visit: no Straight Cath placed during this visit: no Assessment and Plan - Plan IMPRESSION: VDRF large Rt lung mass COPD HTN H/O CVA PLAN: Cont vent support PRVC-AC CPAP trial in AM Aerosol nebs Cont Abx Trach care.
[2018-10-05] MEDS: Pantoprazole Inj 40 MG Vial IV.PUSH SCH ×3 (01:06→23:41)
[2018-10-05] MEDS: dilTIAZem 30 MG Tablet PO SCH ×4 (03:39→21:04)
[2018-10-05] MEDS: Oral Hygiene Kit OROPHARYNG SCH ×4 (03:39→23:36)
[2018-10-05 07:24] LABS: Baso % (Auto) 0.7 % (0.0-2.0); Eos # (Auto) 0.4 th/mm3 (0.0-0.4); Eos % (Auto) 8.3 % (0.0-4.0); Hemoglobin 8.7 gm/dL (11.6-15.3); Lymph # (Auto) 1.1 th/mm3 (1.0-4.8); Lymph % (Auto) 20.9 % (9.0-44.0); Mean Corpuscular HGB Conc 31.2 % (32.0-36.0); Mean Corpuscular Hemoglobin 25.1 pg (27.0-34.0); Mean Corpuscular Volume 80.6 fL (80.0-100.0); Mean Platelet Volume 9.2 fL (7.0-11.0); Mono # (Auto) 0.3 th/mm3 (0.0-0.9); Mono % (Auto) 5.8 % (0.0-8.0); Neut # (Auto) 3.3 th/mm3 (1.8-7.7); Neut % (Auto) 64.3 % (16.0-70.0); Platelet Count 255 th/mm3 (150-450); Red Blood Count 3.48 mil/mm3 (4.00-5.30); Red Cell Distribution Width 21.2 % (11.6-17.2); White Blood Count 5.1 th/mm3 (4.0-11.0)
[2018-10-05] MEDS: Insulin NovoLIN Regular Correctional Sugar Inj SQ SCH ×4 (07:36→23:35)
--- NOTE | 2018-10-05 08:29 | P.PNCC ---
Subjective Subjective Remarks/Hospital Course: 09/18: 68-year-old female past medical history of stroke, left BKA, who was on home hospice until just prior to arrival, presents for an evaluation of fever and altered mental status. According to EMS the patient had not required oxygen until beginning of this week when she had gradual increased demand of her oxygen. End-tidal CO2 prior to arrival was 6. Initial room nasal cannula saturation was 91, she was placed on nonrebreather position of comfort and transfer to emergency department. EMS related that the had elected to revoke the patient's DNR and hospice care prior to transferring her to the hospital. The patient apparently is normally a GCS of 14, apparently she does take some thickened food p.o. department the patient was severely altered with GCS of 6 on arrival [id number] and was intubated by ED attending for an airway protection. 09/19: Remains sedated, orally intubated on mechanical ventilation. CT chest showed right lower lobe lung mass suspicious for malignancy. Patient has a PEG tube following previous stroke. 09/20: Remains sedated, orally intubated on mechanical ventilation. Started on tube feeds. 09/21: Remains sedated, orally intubated on mechanical ventilation. Tolerating tube feeds. Right approximately swelling noted. 09/22 Is not tolerating CPAP trial when decrease PS below 18. Daughter at bedside, says will be here later. Says they don't think they want to proceed with lung biopsy at this time, but on the other hand she discusses the possibility of re-do trach. She says they are not sure how to proceed. I suggested we meet together. Daughter states she has been bedridden since stroke about 4 years ago. Has been in snf. PEG due to dysphagia, does not eat. Speaks a little but daughter states she has declined significantly over the last 2 weeks. 09/23 No significant change. Patient does not tolerate CPAP. Family is very clear that they do not wish to pursue biopsy or diagnosis of suspected lung cancer. At this time, they wish to continue supportive care with vent and FULL CODE. 09/24 No change. Does not tolerate CPAP. Will diurese for positive fluid balance. 09/25 Now on CPAP 20/5 and not tolerating wean. Continue attempts at diuresis to address positive fluid balance since admission 09/26: Remains sedated, orally intubated on mechanical ventilation. Hold CPAP trials yesterday 09/27 Patient is sedated with Diprivan and intubated. Tolerating tube feeds. Afebrile. 09/28 Patient remains intubated and sedated. T;100.8 09/29 Has not made any progress towards weaning. Family offered comfort measures however they expressed desire to proceed with trach Subjective: 09/30 status post bedside tracheostomy yesterday by Dr. Gavin. Discontinued propofol drip. On CPAP 14/5 for 2 hours today. BP is low, will need to hold metoprolol and titrate back on cardizem (nurses held some doses yesterday too). Positive fluid balance but not able to diurese today due to low BP. Awaiting bed at [facility]. 10/01 Patient remains on ventilator via trach. On no sedation. Hgb 6.7 this morning and T: 100.4 at midnight. Tachycardic. 10/02 Patient is on ventilator via trach. On no sedation. Spiked fever with T: 101.5. s/p transfusion 2u PRBC yesterday. [place]/thick secretions noted per nursing staff. 10/03 Patient had low grade fever with T:100.4 last night. Tube feeds held for abd distention. KUB yesterday showed normal bowel gas pattern. 10/04 Patient is on ventilator via trach. For panendoscopy today. T:99.8 last night. 10/05 Patient is on ventilator via trach, on no drips. s/p panendoscopy yesterday showed chronic gastritis with no source of bleeding identified on upper or lower endoscopy. Afebrile. Objective Vital Signs / I&O: Vital Signs 10/04/18 08:30 10/04/18 08:39 10/04/18 08:45 Temperature Pulse Rate 102 H 104 H Respiratory Rate 21 12 Blood Pressure 132/62 126/56 L Pulse Oximetry 99 98 95 10/04/18 09:00 10/04/18 09:15 10/04/18 09:30 Temperature Pulse Rate 101 H 100 H 109 H Respiratory Rate 13 11 L 23 Blood Pressure 123/58 L 120/59 L 139/61 Pulse Oximetry 97 97 98 10/04/18 09:45 10/04/18 10:00 10/04/18 10:15 Temperature Pulse Rate 105 H 99 H 99 H Respiratory Rate 19 16 16 Blood Pressure 125/61 114/56 L 118/57 L Pulse Oximetry 98 97 97 10/04/18 10:22 10/04/18 10:25 10/04/18 10:28 Temperature Pulse Rate 97 H 95 H 88 Respiratory Rate 16 12 19 Blood Pressure 121/58 L 120/60 109/54 L Pulse Oximetry 97 100 100 10/04/18 10:30 10/04/18 10:32 10/04/18 10:38 Temperature Pulse Rate 91 H 98 H 94 H Respiratory Rate 20 16 16 Blood Pressure 112/59 L 113/57 L 113/56 L Pulse Oximetry 100 100 100 10/04/18 10:40 10/04/18 10:43 10/04/18 10:45 Temperature Pulse Rate 90 85 88 Respiratory Rate 16 16 22 Blood Pressure 107/56 L 102/51 L 107/54 L Pulse Oximetry 100 99 99 10/04/18 10:48 10/04/18 10:50 10/04/18 10:53 Temperature Pulse Rate 85 83 78 Respiratory Rate 18 22 24 Blood Pressure 103/66 104/52 L 90/55 L Pulse Oximetry 98 98 98 10/04/18 10:55 10/04/18 10:58 10/04/18 11:00 Temperature Pulse Rate 92 H 84 84 Respiratory Rate 16 16 16 Blood Pressure 105/53 L 133/60 122/57 L Pulse Oximetry 99 99 98 10/04/18 11:03 10/04/18 11:05 10/04/18 11:15 Temperature Pulse Rate 84 85 98 H Respiratory Rate 16 19 Blood Pressure 108/55 L 114/56 L 103/50 L Pulse Oximetry 98 98 97 10/04/18 11:21 10/04/18 11:30 10/04/18 11:45 Temperature Pulse Rate 101 H 101 H 101 H Respiratory Rate 18 16 13 Blood Pressure 112/58 L 120/59 L Pulse Oximetry 97 97 97 10/04/18 12:00 10/04/18 12:15 10/04/18 12:30 Temperature Pulse Rate 100 H 99 H 97 H Respiratory Rate 16 17 Blood Pressure 118/59 L 111/53 L 117/58 L Pulse Oximetry 97 97 98 10/04/18 12:45 10/04/18 12:57 10/04/18 13:00 Temperature Pulse Rate 97 H 97 H Respiratory Rate 11 L 15 Blood Pressure 123/60 113/54 L Pulse Oximetry 99 98 98 10/04/18 13:15 10/04/18 13:30 10/04/18 13:45 Temperature Pulse Rate 99 H 97 H 100 H Respiratory Rate 13 Blood Pressure 130/60 122/58 L 121/59 L Pulse Oximetry 100 99 97 10/04/18 13:58 10/04/18 14:00 10/04/18 14:15 Temperature Pulse Rate 96 H 96 H 96 H Respiratory Rate Blood Pressure 110/54 L 131/62 Pulse Oximetry 100 100 10/04/18 14:31 10/04/18 14:45 10/04/18 15:00 Temperature Pulse Rate 96 H 97 H 100 H Respiratory Rate 15 19 17 Blood Pressure 116/54 L 119/56 L 128/60 Pulse Oximetry 99 99 98 10/04/18 15:10 10/04/18 15:15 10/04/18 15:30 Temperature Pulse Rate 97 H 94 H 92 H Respiratory Rate 14 16 Blood Pressure 127/62 133/63 Pulse Oximetry 98 99 10/04/18 15:37 10/04/18 15:45 10/04/18 16:00 Temperature Pulse Rate 99 H 96 H Respiratory Rate 16 19 22 Blood Pressure 135/55 L 131/58 L Pulse Oximetry 98 97 98 10/04/18 16:15 10/04/18 16:30 10/04/18 16:45 Temperature Pulse Rate 88 84 96 H Respiratory Rate 16 16 27 H Blood Pressure 133/63 126/59 L 124/60 Pulse Oximetry 100 100 99 10/04/18 17:00 10/04/18 17:15 10/04/18 17:30 Temperature Pulse Rate 94 H 90 86 Respiratory Rate 26 H 16 16 Blood Pressure 125/60 122/60 120/57 L Pulse Oximetry 99 100 100 10/04/18 17:45 10/04/18 18:00 10/04/18 18:15 Temperature Pulse Rate 87 88 88 Respiratory Rate 16 16 16 Blood Pressure 123/58 L 106/53 L 111/58 L Pulse Oximetry 99 100 100 10/04/18 18:30 10/04/18 18:45 10/04/18 19:00 Temperature Pulse Rate 84 85 88 Respiratory Rate 16 16 16 Blood Pressure 127/59 L 127/62 Pulse Oximetry 100 100 100 10/04/18 19:01 10/04/18 19:15 10/04/18 19:30 Temperature Pulse Rate 92 H 96 H 97 H Respiratory Rate 16 20 16 Blood Pressure 120/56 L 116/54 L 139/62 Pulse Oximetry 100 100 100 10/04/18 19:45 10/04/18 20:00 10/04/18 20:15 Temperature 99.4 F Pulse Rate 98 H 97 H 96 H Respiratory Rate 40 H 37 H 16 Blood Pressure 134/63 133/63 137/65 Pulse Oximetry 100 100 100 10/04/18 20:25 10/04/18 20:26 10/04/18 20:30 Temperature Pulse Rate 102 H 96 H Respiratory Rate 16 16 20 Blood Pressure 134/64 Pulse Oximetry 100 100 10/04/18 20:45 10/04/18 21:00 10/04/18 21:15 Temperature Pulse Rate 99 H 101 H 102 H Respiratory Rate 18 16 14 Blood Pressure 140/55 L 130/62 134/55 L Pulse Oximetry 100 99 100 10/04/18 21:30 10/04/18 21:45 10/04/18 22:00 Temperature Pulse Rate 101 H 98 H 100 H Respiratory Rate 5 L 16 16 Blood Pressure 131/63 129/63 Pulse Oximetry 99 97 96 10/04/18 22:16 10/04/18 22:30 10/04/18 22:45 Temperature Pulse Rate 96 H 97 H 96 H Respiratory Rate 16 16 16 Blood Pressure 134/61 134/63 143/64 H Pulse Oximetry 98 99 100 10/04/18 23:00 10/04/18 23:15 10/04/18 23:30 Temperature Pulse Rate 85 92 H 84 Respiratory Rate 16 16 16 Blood Pressure 136/63 128/59 L 129/62 Pulse Oximetry 100 100 100 10/04/18 23:45 10/05/18 00:00 10/05/18 00:15 Temperature 99.1 F Pulse Rate 83 83 84 Respiratory Rate 16 16 16 Blood Pressure 125/60 124/59 L 136/61 Pulse Oximetry 100 100 100 10/05/18 00:23 10/05/18 00:30 10/05/18 00:59 Temperature Pulse Rate 85 96 H 104 H Respiratory Rate 17 17 Blood Pressure 122/57 L 135/64 Pulse Oximetry 100 100 99 10/05/18 01:00 10/05/18 02:00 10/05/18 03:00 Temperature Pulse Rate 103 H 97 H 99 H Respiratory Rate Blood Pressure 130/63 132/61 151/66 H Pulse Oximetry 99 100 98 10/05/18 04:00 10/05/18 04:44 10/05/18 05:00 Temperature 99.3 F Pulse Rate 91 H 84 99 H Respiratory Rate 16 16 Blood Pressure 139/64 136/61 Pulse Oximetry 99 99 10/05/18 06:00 Temperature Pulse Rate 91 H Respiratory Rate Blood Pressure 115/56 L Pulse Oximetry 99 Intake & Output 10/04/18 10/05/18 10/05/18 18:59 06:59 18:59 Intake Total 1150 / 1150 712 / 712 Output Total 325 / 325 Balance 1150 / 1150 387 / 387 Weight 67.1 kg Intake: IV 450 / 450 Maxipime Inj 1,000 MG In NS Inj 200 / 200 100 ML @ 200 mls/hr IV.SIG Q8H JORGE Rx#:[id number] Vancomycin Inj 1,000 MG In NS 250 / 250 Inj 250 ML @ 250 mls/hr IV.SIG Q24H JORGE Rx#:[id number] Oral 0 / 0 Tube Feeding 112 / 112 Tube Irrigant 350 / 350 Free Water Amount 500 / 500 250 / 250 Anesthesia Amount 200 / 200 Output: Urine 325 / 325 Other: # Incontinent Voids 3 2 Date of Last Bowel Movement 10/04/18 10/05/18 # Incontinent Bowel Movements 3 1 Result Diagrams: 10/05/18 05:17 10/04/18 05:01 Other Results: Laboratory Results - last 12 hr 10/04/18 10/05/18 10/05/18 23:03 05:17 07:24 WBC 5.1 RBC 3.48 L Hgb 8.7 L Hct 28.0 L MCV 80.6 MCH 25.1 L MCHC 31.2 L RDW 21.2 H Plt Count 255 MPV 9.2 Neut % (Auto) 64.3 Lymph % (Auto) 20.9 [place] % (Auto) 5.8 Eos % (Auto) 8.3 H Baso % (Auto) 0.7 Neut # (Auto) 3.3 Lymph # (Auto) 1.1 [place] # (Auto) 0.3 Eos # (Auto) 0.4 Baso # (Auto) 0.0 WBC Differential . Differential Comment Auto diff final POC Glucose 88 89 Imaging: Head CT 09/18/18 18:40 CONCLUSION: 1. Stable appearance of the brain. Marked ventriculomegaly and white matter disease. . Chest CTA 09/18/18 19:26 CONCLUSION: 1. There is no evidence for pulmonary embolism. 2. Severe emphysema. 3. There is a large soft tissue mass in the right lower lobe suspicious for malignancy until proven otherwise. Venous Doppler Study 10/01/18 00:00 CONCLUSION: 1. Superficial venous thrombosis identified in the right cephalic vein. 2. No evidence of DVT. Abdomen X-Ray 10/02/18 06:48 CONCLUSION: Persistent airspace consolidation involving the right lower lobe. Abdominal bowel gas pattern is normal. Chest X-Ray 10/02/18 06:48 CONCLUSION: There is persistent airspace consolidation involving the right lower lobe. There is improved aeration on the current exam. Abdomen/Pelvis CT 10/03/18 07:26 CONCLUSION: 1. There is air and fluid identified within the stomach which may account for the patient's perceived distention. No evidence of bowel obstruction or ileus. 2. Extensive atherosclerosis. 3. Persistent right lower lobe airspace consolidation. Objective Remarks: GENERAL: Well-nourished, well-developed patient. SKIN: Warm and dry. HEAD: Atraumatic. Normocephalic. EYES: Pupils equal and round. No scleral icterus. No injection or drainage. ENT: No nasal bleeding or discharge. Mucous membranes pink and moist. NECK: Tracheostomy in place, slight pink tinge to secretions, no active bleeding. CARDIOVASCULAR: Tachycardic, No murmurs rubs or gallops. RESPIRATORY: Orotracheally intubated on mechanical ventilation. B/L equal air entry GASTROINTESTINAL: Abdomen soft, non-tender,distended. PEG in place, MUSCULOSKELETAL: Extremities without clubbing, cyanosis, or edema. s/p L AKA. NEUROLOGICAL: Awakens, looks around. Blinks and squeezes hand to command Assessment and Plan - Assessment and Plan Plan: NEURO: History of stroke Off sedation. Monitor neuro status RESP: Acute respiratory failure on mechanical ventilation Emphysema Lung mass History of prior trach after stroke, has been subsequently decannulated Per Dr. De Jesus. not wishing to pursue CT-guided biopsy. Continue with vent support Daily CPAP trials. Vent bundle/nebs. Percutaneous tracheostomy performed at bedside 1/30. Pulm toilet, trach care CXR 10/02 : persistent airspace consolidation involving the right lower lobe. There is improved aeration on the current exam. CV: HTN Monitor BP/heart rate keep MAP>65mmHg. On Cardizem 30mg q6 with hold orders. GI: PEG in place. On Glucerna 1.5 @ 30ml/hr with goal rate 60ml/hr KUB abdomen 10/02 Normal bowel gas pattern. CT abd/pelvis 10/03: No evidence of bowel obstruction or ileus. FEN/RENAL: Acute hypernatremia Hypokalemia resolved Monitor renal function, I/O's, electrolytes replacement per protocol. Increase Free water 250ml Q8, will need K replacement today ID: HCAP UTI Urine culture from 09/18 with providentia and Proteus. Urine and sputum cultures negative Completed 8 day course of zosyn. Monitor for signs of infections ( Fever, WBC) sputum cx 09/28: No growth On abx Cefepime and Vanco, follow up on blood cultures, sputum cx C-diff PCR negative on 10/01 HEME: R brachial DVT Anemia Lovenox 60 mg subcu every 12 hours. s/p Transfuse 2u PRBC 10/01 GI is following for EGD/Colonoscopy today ENDO: Diabetes mellitus Insulin sliding scale PROPH: SCD/Lovenox for DVT prophylaxis. Protonix 40mg Q12 for stress ulcer prophylaxis. 10/01 Doppler US UE b/l: Superficial venous thrombosis identified in the right cephalic vein. No evidence of DVT. 09/21 Doppler US RUE: Occlusive thrombus cephalic and brachial veins ACCESS: PIV x2. Full code Level 3 follow-up
[2018-10-05] MEDS: Enoxaparin Inj 60 MG/0.6 ML Syringe SQ SCH ×2 (08:35→21:04)
[2018-10-05] MEDS: Chlorhexidine 0.12% Oral Kit 15 ML UDC OROPHARYNG SCH ×2 (08:35→21:04)
[2018-10-05] MEDS: Senna/Docusate Sodium 8.6/50 MG Tablet PO SCH ×2 (08:35→21:04)
[2018-10-05] MEDS: Potassium Chloride Liq 20 MEQ/15 ML UDC PO PRN (09:03)
[2018-10-05] MEDS ORDERED: Pharmacy Ordered Lab Info OTHER ONE (11:45)
--- NOTE | 2018-10-05 12:06 | P.PNGI ---
Subjective Interval history: Patient remains intubated. Daughter at bedside <Patricia Molina - Last Filed: 10/05/18 17:39> Physical Exam Vital signs: Vital Signs 10/04/18 12:00 10/04/18 12:15 10/04/18 12:30 Temperature Pulse Rate 100 H 99 H 97 H Respiratory Rate 16 17 Blood Pressure 118/59 L 111/53 L 117/58 L Pulse Oximetry 97 97 98 10/04/18 12:45 10/04/18 12:57 10/04/18 13:00 Temperature Pulse Rate 97 H 97 H Respiratory Rate 11 L 15 Blood Pressure 123/60 113/54 L Pulse Oximetry 99 98 98 10/04/18 13:15 10/04/18 13:30 10/04/18 13:45 Temperature Pulse Rate 99 H 97 H 100 H Respiratory Rate 13 Blood Pressure 130/60 122/58 L 121/59 L Pulse Oximetry 100 99 97 10/04/18 13:58 10/04/18 14:00 10/04/18 14:15 Temperature Pulse Rate 96 H 96 H 96 H Respiratory Rate Blood Pressure 110/54 L 131/62 Pulse Oximetry 100 100 10/04/18 14:31 10/04/18 14:45 10/04/18 15:00 Temperature Pulse Rate 96 H 97 H 100 H Respiratory Rate 15 19 17 Blood Pressure 116/54 L 119/56 L 128/60 Pulse Oximetry 99 99 98 10/04/18 15:10 10/04/18 15:15 10/04/18 15:30 Temperature Pulse Rate 97 H 94 H 92 H Respiratory Rate 14 16 Blood Pressure 127/62 133/63 Pulse Oximetry 98 99 10/04/18 15:37 10/04/18 15:45 10/04/18 16:00 Temperature Pulse Rate 99 H 96 H Respiratory Rate 16 19 22 Blood Pressure 135/55 L 131/58 L Pulse Oximetry 98 97 98 10/04/18 16:15 10/04/18 16:30 10/04/18 16:45 Temperature Pulse Rate 88 84 96 H Respiratory Rate 16 16 27 H Blood Pressure 133/63 126/59 L 124/60 Pulse Oximetry 100 100 99 10/04/18 17:00 10/04/18 17:15 10/04/18 17:30 Temperature Pulse Rate 94 H 90 86 Respiratory Rate 26 H 16 16 Blood Pressure 125/60 122/60 120/57 L Pulse Oximetry 99 100 100 10/04/18 17:45 10/04/18 18:00 10/04/18 18:15 Temperature Pulse Rate 87 88 88 Respiratory Rate 16 16 16 Blood Pressure 123/58 L 106/53 L 111/58 L Pulse Oximetry 99 100 100 10/04/18 18:30 10/04/18 18:45 10/04/18 19:00 Temperature Pulse Rate 84 85 88 Respiratory Rate 16 16 16 Blood Pressure 127/59 L 127/62 Pulse Oximetry 100 100 100 10/04/18 19:01 10/04/18 19:15 10/04/18 19:30 Temperature Pulse Rate 92 H 96 H 97 H Respiratory Rate 16 20 16 Blood Pressure 120/56 L 116/54 L 139/62 Pulse Oximetry 100 100 100 10/04/18 19:45 10/04/18 20:00 10/04/18 20:15 Temperature 99.4 F Pulse Rate 98 H 97 H 96 H Respiratory Rate 40 H 37 H 16 Blood Pressure 134/63 133/63 137/65 Pulse Oximetry 100 100 100 10/04/18 20:25 10/04/18 20:26 10/04/18 20:30 Temperature Pulse Rate 102 H 96 H Respiratory Rate 16 16 20 Blood Pressure 134/64 Pulse Oximetry 100 100 10/04/18 20:45 10/04/18 21:00 10/04/18 21:15 Temperature Pulse Rate 99 H 101 H 102 H Respiratory Rate 18 16 14 Blood Pressure 140/55 L 130/62 134/55 L Pulse Oximetry 100 99 100 10/04/18 21:30 10/04/18 21:45 10/04/18 22:00 Temperature Pulse Rate 101 H 98 H 100 H Respiratory Rate 5 L 16 16 Blood Pressure 131/63 129/63 Pulse Oximetry 99 97 96 10/04/18 22:16 10/04/18 22:30 10/04/18 22:45 Temperature Pulse Rate 96 H 97 H 96 H Respiratory Rate 16 16 16 Blood Pressure 134/61 134/63 143/64 H Pulse Oximetry 98 99 100 10/04/18 23:00 10/04/18 23:15 10/04/18 23:30 Temperature Pulse Rate 85 92 H 84 Respiratory Rate 16 16 16 Blood Pressure 136/63 128/59 L 129/62 Pulse Oximetry 100 100 100 10/04/18 23:45 10/05/18 00:00 10/05/18 00:15 Temperature 99.1 F Pulse Rate 83 83 84 Respiratory Rate 16 16 16 Blood Pressure 125/60 124/59 L 136/61 Pulse Oximetry 100 100 100 10/05/18 00:23 10/05/18 00:30 10/05/18 00:59 Temperature Pulse Rate 85 96 H 104 H Respiratory Rate 17 17 Blood Pressure 122/57 L 135/64 Pulse Oximetry 100 100 99 10/05/18 01:00 10/05/18 02:00 10/05/18 03:00 Temperature Pulse Rate 103 H 97 H 99 H Respiratory Rate Blood Pressure 130/63 132/61 151/66 H Pulse Oximetry 99 100 98 10/05/18 04:00 10/05/18 04:44 10/05/18 05:00 Temperature 99.3 F Pulse Rate 91 H 84 99 H Respiratory Rate 16 16 Blood Pressure 139/64 136/61 Pulse Oximetry 99 99 10/05/18 06:00 10/05/18 08:00 10/05/18 08:42 Temperature 99.6 F Pulse Rate 91 H 103 H 102 H Respiratory Rate 22 Blood Pressure 115/56 L 138/64 Pulse Oximetry 99 99 100 10/05/18 09:00 10/05/18 10:00 10/05/18 11:08 Temperature Pulse Rate 104 H 104 H 107 H Respiratory Rate 23 Blood Pressure 144/65 H Pulse Oximetry 98 100 Intake & Output 10/04/18 10/05/18 10/05/18 18:59 06:59 18:59 Intake Total 1150 / 1150 712 / 712 350 / 350 Output Total 325 / 325 Balance 1150 / 1150 387 / 387 350 / 350 Weight 67.1 kg Intake: IV 450 / 450 100 / 100 Maxipime Inj 1,000 MG In NS Inj 200 / 200 100 / 100 100 ML @ 200 mls/hr IV.SIG Q8H [facility] Rx#:[id number] Vancomycin Inj 1,000 MG In NS 250 / 250 Inj 250 ML @ 250 mls/hr IV.SIG Q24H [facility] Rx#:[id number] Oral 0 / 0 Tube Feeding 112 / 112 Tube Irrigant 350 / 350 Free Water Amount 500 / 500 250 / 250 250 / 250 Anesthesia Amount 200 / 200 Output: Urine 325 / 325 Other: # Incontinent Voids 3 2 Date of Last Bowel Movement 10/04/18 10/05/18 10/05/18 # Incontinent Bowel Movements 3 1 Narrative: Patient is intubated - Routine Respiratory Exam Present: patient mechanically ventilated - Routine Cardiovascular Exam Present: tachycardia - Routine Abdominal Exam Present: firm - Detailed Abdominal Exam Bowel sounds: hypoactive - Routine Extremities Exam Present: edema Comments: Generalized edema - Detailed Lower Extremity Exam Comments: left AKA - Routine Skin Exam Present: intact - Urinary Catheter Management Indwelling Temp Sensing Catheter Cath placed during this visit: yes, but has since been removed by the nurse Reason for continuing: Severe pressure ulcer/wound Insertion date: 09/18/18 Insertion time: 18:50 Removal date: 09/23/18 Removal time: 16:00 Female External Cath placed during this visit: no Straight Cath placed during this visit: no <Patricia Molina - Last Filed: 10/05/18 17:39> Vital signs: Vital Signs 10/05/18 08:42 10/05/18 09:00 10/05/18 10:00 Temperature Pulse Rate 102 H 104 H 103 H Respiratory Rate 22 0 L Blood Pressure 144/65 H 141/63 H Pulse Oximetry 100 98 100 10/05/18 11:00 10/05/18 11:08 10/05/18 12:00 Temperature 99.9 F H Pulse Rate 94 H 107 H 103 H Respiratory Rate 0 L 23 0 L Blood Pressure 132/59 L 140/63 Pulse Oximetry 100 100 99 10/05/18 13:00 10/05/18 14:00 10/05/18 15:00 Temperature Pulse Rate 97 H 85 88 Respiratory Rate 0 L 0 L 0 L Blood Pressure 140/63 140/64 128/60 Pulse Oximetry 99 100 100 10/05/18 15:28 10/05/18 16:00 10/05/18 16:32 Temperature 99.3 F Pulse Rate 94 H 97 H Respiratory Rate 16 0 L 11 L Blood Pressure 145/65 H Pulse Oximetry 100 100 100 10/05/18 17:00 10/05/18 18:00 10/05/18 19:00 Temperature Pulse Rate 98 H 93 H 93 H Respiratory Rate 0 L 0 L 0 L Blood Pressure 147/67 H 145/65 H 143/66 H Pulse Oximetry 99 99 100 10/05/18 20:00 10/05/18 20:25 10/05/18 21:00 Temperature 99.5 F Pulse Rate 93 H 98 H 97 H Respiratory Rate 0 L 19 0 L Blood Pressure 145/66 H 119/62 Pulse Oximetry 100 100 10/05/18 22:00 10/05/18 22:01 10/05/18 23:00 Temperature Pulse Rate 96 H 96 H 98 H Respiratory Rate 0 L 0 L 0 L Blood Pressure 138/62 132/60 Pulse Oximetry 100 100 100 10/06/18 00:00 10/06/18 00:27 10/06/18 01:00 Temperature Pulse Rate 105 H 97 H Respiratory Rate 19 19 0 L Blood Pressure 140/63 139/62 Pulse Oximetry 100 100 99 10/06/18 02:00 10/06/18 03:00 10/06/18 04:00 Temperature Pulse Rate 94 H 100 H 100 H Respiratory Rate 0 L 0 L 0 L Blood Pressure 140/63 142/65 H 152/59 H Pulse Oximetry 99 99 100 10/06/18 04:16 10/06/18 04:18 10/06/18 05:00 Temperature Pulse Rate 95 H 91 H Respiratory Rate 16 17 16 Blood Pressure 132/60 Pulse Oximetry 100 100 10/06/18 06:00 10/06/18 08:24 Temperature Pulse Rate 95 H 92 H Respiratory Rate 19 18 Blood Pressure 138/63 Pulse Oximetry 99 100 Intake & Output 10/05/18 10/06/18 10/06/18 18:59 06:59 18:59 Intake Total 1596.5 / 1596.5 928 / 928 100 / 100 Output Total 250 / 250 300 / 300 Balance 1346.5 / 1346.5 628 / 628 100 / 100 Weight 60.3 kg Intake: IV 462.5 / 462.5 100 / 100 100 / 100 Maxipime Inj 1,000 MG In NS Inj 200 / 200 100 / 100 100 / 100 100 ML @ 200 mls/hr IV.SIG Q8H [facility] Rx#:[id number] Vancomycin Inj 1,250 MG In NS 262.5 / 262.5 Inj 250 ML @ 262.5 mls/hr IV. SIG Q24H [facility] Rx#:[id number] Tube Feeding 324 / 324 328 / 328 Tube Irrigant 60 / 60 Water Bolus Amount 250 / 250 250 / 250 Free Water Amount 500 / 500 250 / 250 Output: Urine 250 / 250 Urine Amount (Catheter) 300 / 300 Female External 300 / 300 Other: # Incontinent Voids 2 Date of Last Bowel Movement 10/05/18 10/06/18 # Bowel Movements 1 # Incontinent Bowel Movements 2 - Urinary Catheter Management Indwelling Temp Sensing Catheter Cath placed during this visit: no Female External Cath placed during this visit: no Straight Cath placed during this visit: no <Jaron Cooper - Last Filed: 10/06/18 08:40> Results - Labs CBC & Chem 7: 10/05/18 05:17 10/05/18 11:49 Laboratory Results - last 24 hr 10/04/18 10/04/18 10/05/18 17:15 23:03 05:17 WBC 5.1 RBC 3.48 L Hgb 8.7 L Hct 28.0 L MCV 80.6 MCH 25.1 L MCHC 31.2 L RDW 21.2 H Plt Count 255 MPV 9.2 Neut % (Auto) 64.3 Lymph % (Auto) 20.9 Ada % (Auto) 5.8 Eos % (Auto) 8.3 H Baso % (Auto) 0.7 Neut # (Auto) 3.3 Lymph # (Auto) 1.1 Ada # (Auto) 0.3 Eos # (Auto) 0.4 Baso # (Auto) 0.0 WBC Differential . Differential Comment Auto diff final POC Glucose 93 88 10/05/18 07:24 WBC RBC Hgb Hct MCV MCH MCHC RDW Plt Count MPV Neut % (Auto) Lymph % (Auto) Ada % (Auto) Eos % (Auto) Baso % (Auto) Neut # (Auto) Lymph # (Auto) Ada # (Auto) Eos # (Auto) Baso # (Auto) WBC Differential Differential Comment POC Glucose 89 Microbiology 10/01/18 16:57 Blood - Peripheral Aerobic Blood Culture - Preliminary No growth in 4 days 10/01/18 16:57 Blood - Peripheral Anaerobic Blood Culture - Preliminary No growth in 4 days 10/01/18 16:50 Blood - Peripheral Aerobic Blood Culture - Preliminary No growth in 4 days 10/01/18 16:50 Blood - Peripheral Anaerobic Blood Culture - Preliminary No growth in 4 days 10/03/18 08:05 Sputum - Endotracheal Gram Stain - Final 10/03/18 08:05 Sputum - Endotracheal Sputum Culture - Final Rare growth normal respiratory michelle <ShoSusana [email or web address] - Last Filed: 10/05/18 17:39> - Labs CBC & Chem 7: 10/06/18 04:21 10/06/18 04:21 Laboratory Results - last 24 hr 10/05/18 10/05/18 10/05/18 11:49 11:49 12:52 WBC RBC Hgb Hct MCV MCH MCHC RDW Plt Count MPV Neut % (Auto) Lymph % (Auto) Ada % (Auto) Eos % (Auto) Baso % (Auto) Neut # (Auto) Lymph # (Auto) Ada # (Auto) Eos # (Auto) Baso # (Auto) WBC Differential Differential Comment Sodium 142 Cancelled Potassium 4.3 D Cancelled Chloride 112 H Cancelled Carbon Dioxide 21.6 Cancelled Anion Gap 8 Cancelled BUN 7 Cancelled Creatinine 0.59 Cancelled Estimated GFR Greater than 89 Cancelled POC Glucose 101 Random Glucose 96 Cancelled Calcium 8.3 L Cancelled Calcium Adj for Albumin Cancelled Phosphorus 2.3 L Magnesium 1.9 Total Bilirubin 0.2 Cancelled AST 17 Cancelled ALT 18 Cancelled Alkaline Phosphatase 83 Cancelled Total Protein 7.0 Cancelled Albumin 1.9 L Cancelled Vancomycin Trough 11.2 H 10/05/18 10/05/18 10/06/18 18:44 23:22 04:21 WBC 5.9 RBC 3.70 L Hgb 9.2 L Hct 29.5 L MCV 79.6 L MCH 24.7 L MCHC 31.1 L RDW 21.1 H Plt Count 274 MPV 8.7 Neut % (Auto) 65.1 Lymph % (Auto) 17.1 Ada % (Auto) 7.0 Eos % (Auto) 10.3 H Baso % (Auto) 0.5 Neut # (Auto) 3.9 Lymph # (Auto) 1.0 Ada # (Auto) 0.4 Eos # (Auto) 0.6 H Baso # (Auto) 0.0 WBC Differential . Differential Comment Auto diff final Sodium Potassium Chloride Carbon Dioxide Anion Gap BUN Creatinine Estimated GFR POC Glucose 116 H 90 Random Glucose Calcium Calcium Adj for Albumin Phosphorus Magnesium Total Bilirubin AST ALT Alkaline Phosphatase Total Protein Albumin Vancomycin Trough 10/06/18 10/06/18 04:21 06:43 WBC RBC Hgb Hct MCV MCH MCHC RDW Plt Count MPV Neut % (Auto) Lymph % (Auto) Ada % (Auto) Eos % (Auto) Baso % (Auto) Neut # (Auto) Lymph # (Auto) Ada # (Auto) Eos # (Auto) Baso # (Auto) WBC Differential Differential Comment Sodium 142 Potassium 3.9 Chloride 111 H Carbon Dioxide 23.0 Anion Gap 8 BUN 7 Creatinine 0.57 Estimated GFR Greater than 89 POC Glucose 118 H Random Glucose 94 Calcium 8.5 Calcium Adj for Albumin Phosphorus 2.1 L Magnesium 1.9 Total Bilirubin 0.2 AST 12 L ALT 15 Alkaline Phosphatase 89 Total Protein 7.1 Albumin 2.2 L Vancomycin Trough Microbiology 10/01/18 16:57 Blood - Peripheral Aerobic Blood Culture - Preliminary No growth in 4 days 10/01/18 16:57 Blood - Peripheral Anaerobic Blood Culture - Preliminary No growth in 4 days 10/01/18 16:50 Blood - Peripheral Aerobic Blood Culture - Preliminary No growth in 4 days 10/01/18 16:50 Blood - Peripheral Anaerobic Blood Culture - Preliminary No growth in 4 days 10/03/18 08:05 Sputum - Endotracheal Gram Stain - Final 10/03/18 08:05 Sputum - Endotracheal Sputum Culture - Final Rare growth normal respiratory michelle <Jaron Cooper - Last Filed: 10/06/18 08:40> Assessment and Plan (1) Anemia Status: Acute Code(s): D64.9 - Anemia, unspecified (2) Respiratory failure Status: Acute Code(s): J96.90 - Respiratory failure, unspecified, unspecified whether with hypoxia or hypercapnia - Plan This patient is a 68-year-old female with past medical history significant for CVA, left AKA, acute respiratory failure, diabetes, dysphagia, hypertension, hemiparesis, hemiplegia and hypoxia. Surgical history significant for PEG tube placement, tracheostomy and left above-knee amputation. Patient presented to [facility] emergency room via EMS for reported hypoxemia. Of note, patient was on home hospice prior to arrival. Upon arrival, patient was intubated by ER attending for protection of airway. Our service has been consulted to evaluate patient for worsening anemia requiring blood transfusion. Patient is currently being cared for in the critical care setting post tracheostomy placement, patient mechanically ventilated. Temperature 101.5 this a.m. sinus tach on monitoring and evaluation advisor. Patient presently having loose watery stools, dignity shield applied with noted liquid brown stool present. ICU nurse reports no obvious noted bleeding. Hemoglobin 6.7 hematocrit 23.9. Patient currently receiving 1st of 2 units of packed RBCs for transfusion. Upon exam, estimated 5 x 5 cm hematoma to the left lower quadrant of abdomen. Left upper extremity phlebitis noted. Patient currently receiving Lovenox 60 mg subcutaneously every 12 hours. Anemia-requiring blood transfusion- Microcytic anemia christina chronic 68-year-old female admitted to [facility] for hypoxemia mental status changes. Patient intubated upon arrival. Our service has been consulted for worsening anemia now requiring blood transfusion of 2 units packed RBCs. There have been no obvious signs of bleeding reported. Patient presently trach and ventilated FiO2 35%. PEG tube with Glucerna at 60 mL's per hour. Abdomen soft with bowel sounds present, ~5 x 5 cm hematoma left lower quadrant. Patient currently receiving Lovenox 60 mg subcutaneous every 12 hours. -Hemoglobin 6.7 hematocrit 23.9 WBC 11.7 platelet count 242 -Total bilirubin 0.3 AST 18 ALT 25 alk phos 103 10/02/2018 Patient awake and alert Nonverbal Mechanically ventilated via trach-on no sedation No reported or active bleeding noted-hemoglobin 9.7 hematocrit 30.9 from 10.3 and 32.7 Slight rising BUN with stable creatinine may be indicative of upper GI bleeding possible dilated specimen value 6.7 on 10/01/2018 Dignity shield noted liquid brown stool present KUB: Persistent airspace consolidation involving the right lower lobe. Abdominal bowel gas pattern is normal. Nurse reports no PEG tube feeding residuals 10/03/2018 Patient resting soundly with eyes closed Mechanically ventilated via trach on no sedation No reported bleeding 8.8 hemoglobin 9.5 hematocrit 30.4 No enteric pathogens or WBCs noted on final report for stool studies Plan -Hold tube feedings after midnight 10/04/2018 -Monitor for active bleeding -Plan of care per critical care medicine -Monitor hemoglobin and hematocrit closely -Transfuse as needed -Pantoprazole 40 mg IV every 12 -Palliative following -Stool studies pending-Cryptosporidium and Giardia -Obtain consent for EGD and colonoscopy (planning for 10/04/2018) -GoLYTELY prep (10/03/2018 @ 1600) -Supportive care -Further recommendations to follow 10/05/2018 Patient remains intubated Status post EGD colonoscopy 10/04/2018-findings of chronic gastritis no distinct source of bleeding identified on upper or lower endoscopy Assessment Chronic anemia Acute respiratory failure Hemoglobin 8.7 hematocrit 28 platelet 255 INR 1 CMP is pending Stool studies were all negative for C. difficile, WBCs stool, enteric pathogens PCR, leptospiral odium antigen, and Giardia antigen. Plan -Resume tube feedings and flush per protocol -Monitor active bleeding -Monitor labs -Repeat EGD in case of recurrent upper GI bleed -Consider iron supplementation when patient is able -Continue PPI -Since patient's hemoglobin has not dropped and has remained stable GI will signed off -Please reconsult as needed This patient has been seen by myself and Dr. Cooper this note is written on his behalf - Attending Attestation Dr. Cooper <Patricia Molina - Last Filed: 10/05/18 17:39> (1) Anemia Status: Acute Code(s): D64.9 - Anemia, unspecified (2) Respiratory failure Status: Acute Code(s): J96.90 - Respiratory failure, unspecified, unspecified whether with hypoxia or hypercapnia - Attending Attestation I have seen and examined the patient and reviewed the patients care with the [facility]. I agree with the above assessment and recommendations as documented above. <Jaron Cooper - Last Filed: 10/06/18 08:40>
[2018-10-05 12:33] LABS: Alanine Aminotransferase 18 U/L (10-53); Albumin 1.9 g/dL (3.4-5.0); Alkaline Phosphatase 83 U/L (45-117); Anion Gap 8 meq/L (5-15); Aspartate Aminotransferase 17 U/L (15-37); Blood Urea Nitrogen 7 mg/dL (7-18); Calcium 8.3 mg/dL (8.5-10.1); Carbon Dioxide 21.6 meq/L (21.0-32.0); Chloride 112 meq/L (98-107); Glomerular Filtration Rate Greater Than 89 mL/min (>89); Glucose,Random 96 mg/dL (74-106); Magnesium 1.9 mg/dL (1.5-2.5); Phosphorus 2.3 mg/dL (2.5-4.9); Potassium 4.3 meq/L (3.5-5.1); Sodium 142 meq/L (136-145); Vancomycin,Trough 11.2 mcg/mL (5.0-10.0)
[2018-10-05] MEDS ORDERED: Collagenase Oint 30 GM Tube TOPICAL PRN (13:24)
[2018-10-05] MEDS ORDERED: Vancomycin Inj 1,250 MG in Sodium Chlor 0.9% Inj 250 ML IV.SIG SCH (15:00)
--- NOTE | 2018-10-05 19:42 | P.PNPL ---
Subjective Interval history: 68 YOAA female who was with Hospice svc, now rescended Had Trach Does't tolerate CPAP off sedation Tolerates TF Physical Exam Vital signs: Vital Signs 10/04/18 19:45 10/04/18 20:00 10/04/18 20:15 Temperature 99.4 F Pulse Rate 98 H 97 H 96 H Respiratory Rate 40 H 37 H 16 Blood Pressure 134/63 133/63 137/65 Pulse Oximetry 100 100 100 10/04/18 20:25 10/04/18 20:26 10/04/18 20:30 Temperature Pulse Rate 102 H 96 H Respiratory Rate 16 16 20 Blood Pressure 134/64 Pulse Oximetry 100 100 10/04/18 20:45 10/04/18 21:00 10/04/18 21:15 Temperature Pulse Rate 99 H 101 H 102 H Respiratory Rate 18 16 14 Blood Pressure 140/55 L 130/62 134/55 L Pulse Oximetry 100 99 100 10/04/18 21:30 10/04/18 21:45 10/04/18 22:00 Temperature Pulse Rate 101 H 98 H 100 H Respiratory Rate 5 L 16 16 Blood Pressure 131/63 129/63 Pulse Oximetry 99 97 96 10/04/18 22:16 10/04/18 22:30 10/04/18 22:45 Temperature Pulse Rate 96 H 97 H 96 H Respiratory Rate 16 16 16 Blood Pressure 134/61 134/63 143/64 H Pulse Oximetry 98 99 100 10/04/18 23:00 10/04/18 23:15 10/04/18 23:30 Temperature Pulse Rate 85 92 H 84 Respiratory Rate 16 16 16 Blood Pressure 136/63 128/59 L 129/62 Pulse Oximetry 100 100 100 10/04/18 23:45 10/05/18 00:00 10/05/18 00:15 Temperature 99.1 F Pulse Rate 83 83 84 Respiratory Rate 16 16 16 Blood Pressure 125/60 124/59 L 136/61 Pulse Oximetry 100 100 100 10/05/18 00:23 10/05/18 00:30 10/05/18 00:59 Temperature Pulse Rate 85 96 H 104 H Respiratory Rate 17 17 Blood Pressure 122/57 L 135/64 Pulse Oximetry 100 100 99 10/05/18 01:00 10/05/18 02:00 10/05/18 03:00 Temperature Pulse Rate 103 H 97 H 99 H Respiratory Rate Blood Pressure 130/63 132/61 151/66 H Pulse Oximetry 99 100 98 10/05/18 04:00 10/05/18 04:44 10/05/18 05:00 Temperature 99.3 F Pulse Rate 91 H 84 99 H Respiratory Rate 16 16 Blood Pressure 139/64 136/61 Pulse Oximetry 99 99 10/05/18 06:00 10/05/18 08:00 10/05/18 08:42 Temperature 99.6 F Pulse Rate 91 H 103 H 102 H Respiratory Rate 22 Blood Pressure 115/56 L 138/64 Pulse Oximetry 99 99 100 10/05/18 09:00 10/05/18 10:00 10/05/18 11:00 Temperature Pulse Rate 104 H 103 H 94 H Respiratory Rate 0 L 0 L Blood Pressure 144/65 H 141/63 H 132/59 L Pulse Oximetry 98 100 100 10/05/18 11:08 10/05/18 12:00 10/05/18 13:00 Temperature 99.9 F H Pulse Rate 107 H 103 H 97 H Respiratory Rate 23 0 L 0 L Blood Pressure 140/63 140/63 Pulse Oximetry 100 99 99 10/05/18 14:00 10/05/18 15:00 10/05/18 15:28 Temperature Pulse Rate 85 88 94 H Respiratory Rate 0 L 0 L 16 Blood Pressure 140/64 128/60 Pulse Oximetry 100 100 100 10/05/18 16:00 10/05/18 16:32 10/05/18 17:00 Temperature 99.3 F Pulse Rate 97 H 98 H Respiratory Rate 0 L 11 L 0 L Blood Pressure 145/65 H 147/67 H Pulse Oximetry 100 100 99 10/05/18 18:00 Temperature Pulse Rate 96 H Respiratory Rate Blood Pressure Pulse Oximetry Intake & Output 10/05/18 10/05/18 10/06/18 06:59 18:59 06:59 Intake Total 712 / 712 1596.5 / 1596.5 Output Total 325 / 325 250 / 250 Balance 387 / 387 1346.5 / 1346.5 Weight 67.1 kg Intake: IV 462.5 / 462.5 Maxipime Inj 1,000 MG In NS Inj 200 / 200 100 ML @ 200 mls/hr IV.SIG Q8H [facility] Rx#:[id number] Vancomycin Inj 1,250 MG In NS 262.5 / 262.5 Inj 250 ML @ 262.5 mls/hr IV. SIG Q24H [facility] Rx#:[id number] Tube Feeding 112 / 112 324 / 324 Tube Irrigant 350 / 350 60 / 60 Water Bolus Amount 250 / 250 Free Water Amount 250 / 250 500 / 500 Output: Urine 325 / 325 250 / 250 Other: # Incontinent Voids 2 2 Date of Last Bowel Movement 10/05/18 10/05/18 # Bowel Movements 1 # Incontinent Bowel Movements 1 GENERAL: Elderly AA female on Vent SKIN: Warm and dry. HEAD: Normocephalic. EYES: No scleral icterus. No injection or drainage. NECK: Supple, trachea midline. No JVD or lymphadenopathy. trach CARDIOVASCULAR: Regular rate and rhythm without murmurs, gallops, or rubs. RESPIRATORY: Breath sounds equal bilaterally. No accessory muscle use. GASTROINTESTINAL: Abdomen soft, non-tender, nondistended. MUSCULOSKELETAL: No cyanosis, or edema. Left AKA BACK: Nontender without obvious deformity. No CVA tenderness. - Urinary Catheter Management Indwelling Temp Sensing Catheter Cath placed during this visit: yes, but has since been removed by the nurse Reason for continuing: Severe pressure ulcer/wound Insertion date: 09/18/18 Insertion time: 18:50 Removal date: 09/23/18 Removal time: 16:00 Female External Cath placed during this visit: no Straight Cath placed during this visit: no Assessment and Plan - Plan IMPRESSION: VDRF large Rt lung mass COPD HTN H/O CVA PLAN: Cont vent support PRVC-AC CPAP trial daily Aerosol nebs Cont Abx Trach care.
[2018-10-06] MEDS: Vancomycin Inj 1,000 MG in Sodium Chlor 0.9% Inj 250 ML IV.SIG SCH (02:27)
[2018-10-06] MEDS: dilTIAZem 30 MG Tablet PO SCH ×4 (03:49→21:46)
[2018-10-06] MEDS: Oral Hygiene Kit OROPHARYNG SCH ×3 (04:00→15:45)
[2018-10-06 04:48] LABS: Baso % (Auto) 0.5 % (0.0-2.0); Eos # (Auto) 0.6 th/mm3 (0.0-0.4); Eos % (Auto) 10.3 % (0.0-4.0); Hematocrit 29.5 % (35.0-46.0); Hemoglobin 9.2 gm/dL (11.6-15.3); Lymph % (Auto) 17.1 % (9.0-44.0); Mean Corpuscular HGB Conc 31.1 % (32.0-36.0); Mean Corpuscular Hemoglobin 24.7 pg (27.0-34.0); Mean Corpuscular Volume 79.6 fL (80.0-100.0); Mean Platelet Volume 8.7 fL (7.0-11.0); Mono # (Auto) 0.4 th/mm3 (0.0-0.9); Neut # (Auto) 3.9 th/mm3 (1.8-7.7); Neut % (Auto) 65.1 % (16.0-70.0); Platelet Count 274 th/mm3 (150-450); Red Cell Distribution Width 21.1 % (11.6-17.2); White Blood Count 5.9 th/mm3 (4.0-11.0)
[2018-10-06 05:09] LABS: Alanine Aminotransferase 15 U/L (10-53); Albumin 2.2 g/dL (3.4-5.0); Anion Gap 8 meq/L (5-15); Aspartate Aminotransferase 12 U/L (15-37); Blood Urea Nitrogen 7 mg/dL (7-18); Calcium 8.5 mg/dL (8.5-10.1); Chloride 111 meq/L (98-107); Glomerular Filtration Rate Greater Than 89 mL/min (>89); Glucose,Random 94 mg/dL (74-106); Magnesium 1.9 mg/dL (1.5-2.5); Phosphorus 2.1 mg/dL (2.5-4.9); Potassium 3.9 meq/L (3.5-5.1); Sodium 142 meq/L (136-145)
[2018-10-06 05:10] LABS: Alkaline Phosphatase 89 U/L (45-117); Total Protein 7.1 g/dL (6.4-8.2)
[2018-10-06] MEDS: Insulin NovoLIN Regular Correctional Sugar Inj SQ SCH ×3 (07:28→18:31)
--- NOTE | 2018-10-06 07:45 | P.PNCC ---
Subjective Subjective Remarks/Hospital Course: 09/18: 68-year-old female past medical history of stroke, left BKA, who was on home hospice until just prior to arrival, presents for an evaluation of fever and altered mental status. According to EMS the patient had not required oxygen until beginning of this week when she had gradual increased demand of her oxygen. End-tidal CO2 prior to arrival was 6. Initial room nasal cannula saturation was 91, she was placed on nonrebreather position of comfort and transfer to emergency department. EMS related that the had elected to revoke the patient's DNR and hospice care prior to transferring her to the hospital. The patient apparently is normally a GCS of 14, apparently she does take some thickened food p.o. department the patient was severely altered with GCS of 6 on arrival [id number] and was intubated by ED attending for an airway protection. 09/19: Remains sedated, orally intubated on mechanical ventilation. CT chest showed right lower lobe lung mass suspicious for malignancy. Patient has a PEG tube following previous stroke. 09/20: Remains sedated, orally intubated on mechanical ventilation. Started on tube feeds. 09/21: Remains sedated, orally intubated on mechanical ventilation. Tolerating tube feeds. Right approximately swelling noted. 09/22 Is not tolerating CPAP trial when decrease PS below 18. Daughter at bedside, says will be here later. Says they don't think they want to proceed with lung biopsy at this time, but on the other hand she discusses the possibility of re-do trach. She says they are not sure how to proceed. I suggested we meet together. Daughter states she has been bedridden since stroke about 4 years ago. Has been in [facility]. PEG due to dysphagia, does not eat. Speaks a little but daughter states she has declined significantly over the last 2 weeks. 09/23 No significant change. Patient does not tolerate CPAP. Family is very clear that they do not wish to pursue biopsy or diagnosis of suspected lung cancer. At this time, they wish to continue supportive care with vent and FULL CODE. 09/24 No change. Does not tolerate CPAP. Will diurese for positive fluid balance. 09/25 Now on CPAP 20/5 and not tolerating wean. Continue attempts at diuresis to address positive fluid balance since admission 09/26: Remains sedated, orally intubated on mechanical ventilation. Hold CPAP trials yesterday 09/27 Patient is sedated with Diprivan and intubated. Tolerating tube feeds. Afebrile. 09/28 Patient remains intubated and sedated. T;100.8 09/29 Has not made any progress towards weaning. Family offered comfort measures however they expressed desire to proceed with trach Subjective: 09/30 status post bedside tracheostomy yesterday by Dr. Gavin. Discontinued propofol drip. On CPAP 14/5 for 2 hours today. BP is low, will need to hold metoprolol and titrate back on cardizem (nurses held some doses yesterday too). Positive fluid balance but not able to diurese today due to low BP. Awaiting bed at [facility]. 10/01 Patient remains on ventilator via trach. On no sedation. Hgb 6.7 this morning and T: 100.4 at midnight. Tachycardic. 10/02 Patient is on ventilator via trach. On no sedation. Spiked fever with T: 101.5. s/p transfusion 2u PRBC yesterday. Mcmillan/thick secretions noted per nursing staff. 10/03 Patient had low grade fever with T:100.4 last night. Tube feeds held for abd distention. KUB yesterday showed normal bowel gas pattern. 10/04 Patient is on ventilator via trach. For panendoscopy today. T:99.8 last night. 10/05 Patient is on ventilator via trach, on no drips. s/p panendoscopy yesterday showed chronic gastritis with no source of bleeding identified on upper or lower endoscopy. Afebrile. 10/06 Patient remains on ventilator via trach. T:99.9 yesterday Objective Vital Signs / I&O: Vital Signs 10/05/18 08:00 10/05/18 08:42 10/05/18 09:00 Temperature 99.6 F Pulse Rate 103 H 102 H 104 H Respiratory Rate 22 Blood Pressure 138/64 144/65 H Pulse Oximetry 99 100 98 10/05/18 10:00 10/05/18 11:00 10/05/18 11:08 Temperature Pulse Rate 103 H 94 H 107 H Respiratory Rate 0 L 0 L 23 Blood Pressure 141/63 H 132/59 L Pulse Oximetry 100 100 100 10/05/18 12:00 10/05/18 13:00 10/05/18 14:00 Temperature 99.9 F H Pulse Rate 103 H 97 H 85 Respiratory Rate 0 L 0 L 0 L Blood Pressure 140/63 140/63 140/64 Pulse Oximetry 99 99 100 10/05/18 15:00 10/05/18 15:28 10/05/18 16:00 Temperature 99.3 F Pulse Rate 88 94 H 97 H Respiratory Rate 0 L 16 0 L Blood Pressure 128/60 145/65 H Pulse Oximetry 100 100 100 10/05/18 16:32 10/05/18 17:00 10/05/18 18:00 Temperature Pulse Rate 98 H 93 H Respiratory Rate 11 L 0 L 0 L Blood Pressure 147/67 H 145/65 H Pulse Oximetry 100 99 99 10/05/18 19:00 10/05/18 20:00 10/05/18 20:25 Temperature 99.5 F Pulse Rate 93 H 93 H 98 H Respiratory Rate 0 L 0 L 19 Blood Pressure 143/66 H 145/66 H Pulse Oximetry 100 100 10/05/18 21:00 10/05/18 22:00 10/05/18 22:01 Temperature Pulse Rate 97 H 96 H 96 H Respiratory Rate 0 L 0 L 0 L Blood Pressure 119/62 138/62 Pulse Oximetry 100 100 100 10/05/18 23:00 10/06/18 00:00 10/06/18 00:27 Temperature Pulse Rate 98 H 105 H Respiratory Rate 0 L 19 19 Blood Pressure 132/60 140/63 Pulse Oximetry 100 100 100 10/06/18 01:00 10/06/18 02:00 10/06/18 03:00 Temperature Pulse Rate 97 H 94 H 100 H Respiratory Rate 0 L 0 L 0 L Blood Pressure 139/62 140/63 142/65 H Pulse Oximetry 99 99 99 10/06/18 04:00 10/06/18 04:16 10/06/18 04:18 Temperature Pulse Rate 100 H 95 H Respiratory Rate 0 L 16 17 Blood Pressure 152/59 H Pulse Oximetry 100 100 10/06/18 05:00 10/06/18 06:00 Temperature Pulse Rate 91 H 95 H Respiratory Rate 16 19 Blood Pressure 132/60 138/63 Pulse Oximetry 100 99 Intake & Output 10/05/18 10/06/18 10/06/18 18:59 06:59 18:59 Intake Total 1596.5 / 1596.5 928 / 928 100 / 100 Output Total 250 / 250 300 / 300 Balance 1346.5 / 1346.5 628 / 628 100 / 100 Weight 60.3 kg Intake: IV 462.5 / 462.5 100 / 100 100 / 100 Maxipime Inj 1,000 MG In NS Inj 200 / 200 100 / 100 100 / 100 100 ML @ 200 mls/hr IV.SIG Q8H JORGE Rx#:[id number] Vancomycin Inj 1,250 MG In NS 262.5 / 262.5 Inj 250 ML @ 262.5 mls/hr IV. SIG Q24H JORGE Rx#:[id number] Tube Feeding 324 / 324 328 / 328 Tube Irrigant 60 / 60 Water Bolus Amount 250 / 250 250 / 250 Free Water Amount 500 / 500 250 / 250 Output: Urine 250 / 250 Urine Amount (Catheter) 300 / 300 Female External 300 / 300 Other: # Incontinent Voids 2 Date of Last Bowel Movement 10/05/18 10/06/18 # Bowel Movements 1 # Incontinent Bowel Movements 2 Result Diagrams: 10/06/18 04:21 10/06/18 04:21 Other Results: Laboratory Results - last 12 hr 10/05/18 10/06/18 10/06/18 23:22 04:21 04:21 WBC 5.9 RBC 3.70 L Hgb 9.2 L Hct 29.5 L MCV 79.6 L MCH 24.7 L MCHC 31.1 L RDW 21.1 H Plt Count 274 MPV 8.7 Neut % (Auto) 65.1 Lymph % (Auto) 17.1 Roane % (Auto) 7.0 Eos % (Auto) 10.3 H Baso % (Auto) 0.5 Neut # (Auto) 3.9 Lymph # (Auto) 1.0 Roane # (Auto) 0.4 Eos # (Auto) 0.6 H Baso # (Auto) 0.0 WBC Differential . Differential Comment Auto diff final Sodium 142 Potassium 3.9 Chloride 111 H Carbon Dioxide 23.0 Anion Gap 8 BUN 7 Creatinine 0.57 Estimated GFR Greater than 89 POC Glucose 90 Random Glucose 94 Calcium 8.5 Phosphorus 2.1 L Magnesium 1.9 Total Bilirubin 0.2 AST 12 L ALT 15 Alkaline Phosphatase 89 Total Protein 7.1 Albumin 2.2 L 10/06/18 06:43 WBC RBC Hgb Hct MCV MCH MCHC RDW Plt Count MPV Neut % (Auto) Lymph % (Auto) Roane % (Auto) Eos % (Auto) Baso % (Auto) Neut # (Auto) Lymph # (Auto) Roane # (Auto) Eos # (Auto) Baso # (Auto) WBC Differential Differential Comment Sodium Potassium Chloride Carbon Dioxide Anion Gap BUN Creatinine Estimated GFR POC Glucose 118 H Random Glucose Calcium Phosphorus Magnesium Total Bilirubin AST ALT Alkaline Phosphatase Total Protein Albumin Imaging: Head CT 09/18/18 18:40 CONCLUSION: 1. Stable appearance of the brain. Marked ventriculomegaly and white matter disease. . Chest CTA 09/18/18 19:26 CONCLUSION: 1. There is no evidence for pulmonary embolism. 2. Severe emphysema. 3. There is a large soft tissue mass in the right lower lobe suspicious for malignancy until proven otherwise. Venous Doppler Study 10/01/18 00:00 CONCLUSION: 1. Superficial venous thrombosis identified in the right cephalic vein. 2. No evidence of DVT. Abdomen X-Ray 10/02/18 06:48 CONCLUSION: Persistent airspace consolidation involving the right lower lobe. Abdominal bowel gas pattern is normal. Chest X-Ray 10/02/18 06:48 CONCLUSION: There is persistent airspace consolidation involving the right lower lobe. There is improved aeration on the current exam. Abdomen/Pelvis CT 10/03/18 07:26 CONCLUSION: 1. There is air and fluid identified within the stomach which may account for the patient's perceived distention. No evidence of bowel obstruction or ileus. 2. Extensive atherosclerosis. 3. Persistent right lower lobe airspace consolidation. Objective Remarks: GENERAL: Well-nourished, well-developed patient. SKIN: Warm and dry. HEAD: Atraumatic. Normocephalic. EYES: Pupils equal and round. No scleral icterus. No injection or drainage. ENT: No nasal bleeding or discharge. Mucous membranes pink and moist. NECK: Tracheostomy in place, slight pink tinge to secretions, no active bleeding. CARDIOVASCULAR: Tachycardic, No murmurs rubs or gallops. RESPIRATORY: Orotracheally intubated on mechanical ventilation. B/L equal air entry GASTROINTESTINAL: Abdomen soft, non-tender,distended. PEG in place, MUSCULOSKELETAL: Extremities without clubbing, cyanosis, or edema. s/p L AKA. NEUROLOGICAL: Awakens, looks around. Blinks and squeezes hand to command Assessment and Plan - Assessment and Plan Plan: NEURO: History of stroke Off sedation. Monitor neuro status RESP: Acute respiratory failure on mechanical ventilation Emphysema Lung mass History of prior trach after stroke, has been subsequently decannulated Per Dr. De Jesus. not wishing to pursue CT-guided biopsy. Continue with vent support Daily CPAP trials. Vent bundle/nebs. Percutaneous tracheostomy performed at bedside 09/29. Pulm toilet, trach care CV: HTN Monitor BP/heart rate keep MAP>65mmHg. On Cardizem 30mg q6 with hold orders. GI: PEG in place. On Glucerna 1.5 @ 40ml/hr with goal rate 60ml/hr KUB abdomen 10/02 Normal bowel gas pattern. CT abd/pelvis 10/03: No evidence of bowel obstruction or ileus. FEN/RENAL: Acute hypernatremia- resolved Monitor renal function, I/O's, electrolytes replacement per protocol. Free water 250ml Q8, ID: HCAP UTI Urine culture from 09/18 with providentia and Proteus. BC 10/01: NGTD sputum cx 09/28 and 10/03 : No growth On abx Cefepime and Vanco, d/c Vanco, monitor for signs of infections ( Fever, WBC) C-diff PCR negative on 10/01 HEME: R brachial DVT Anemia Lovenox 60 mg subcu every 12 hours. s/p Transfuse 2u PRBC 10/01 GI is following for EGD/Colonoscopy today ENDO: Diabetes mellitus Insulin sliding scale PROPH: SCD/Lovenox for DVT prophylaxis. Protonix 40mg Q12 for stress ulcer prophylaxis. 10/01 Doppler US UE b/l: Superficial venous thrombosis identified in the right cephalic vein. No evidence of DVT. 09/21 Doppler US RUE: Occlusive thrombus cephalic and brachial veins ACCESS: PIV x2. Full code Level 3 follow-up
[2018-10-06] MEDS: Enoxaparin Inj 60 MG/0.6 ML Syringe SQ SCH ×2 (09:19→21:45)
[2018-10-06] MEDS: Chlorhexidine 0.12% Oral Kit 15 ML UDC OROPHARYNG SCH ×2 (09:19→20:45)
[2018-10-06] MEDS: Senna/Docusate Sodium 8.6/50 MG Tablet PO SCH ×2 (09:20→21:46)
[2018-10-06] MEDS: Pantoprazole Inj 40 MG Vial IV.PUSH SCH (12:36)
--- NOTE | 2018-10-06 19:36 | P.PNPL ---
Subjective Interval history: 68 YOAA female who was with Hospice svc, now rescended Had Trach Does't tolerate CPAP off sedation Tolerates TF Remains on Vent Physical Exam Vital signs: Vital Signs 10/05/18 20:00 10/05/18 20:25 10/05/18 21:00 Temperature 99.5 F Pulse Rate 93 H 98 H 97 H Respiratory Rate 0 L 19 0 L Blood Pressure 145/66 H 119/62 Pulse Oximetry 100 100 10/05/18 22:00 10/05/18 22:01 10/05/18 23:00 Temperature Pulse Rate 96 H 96 H 98 H Respiratory Rate 0 L 0 L 0 L Blood Pressure 138/62 132/60 Pulse Oximetry 100 100 100 10/06/18 00:00 10/06/18 00:27 10/06/18 01:00 Temperature Pulse Rate 105 H 97 H Respiratory Rate 19 19 0 L Blood Pressure 140/63 139/62 Pulse Oximetry 100 100 99 10/06/18 02:00 10/06/18 03:00 10/06/18 04:00 Temperature Pulse Rate 94 H 100 H 100 H Respiratory Rate 0 L 0 L 0 L Blood Pressure 140/63 142/65 H 152/59 H Pulse Oximetry 99 99 100 10/06/18 04:16 10/06/18 04:18 10/06/18 05:00 Temperature Pulse Rate 95 H 91 H Respiratory Rate 16 17 16 Blood Pressure 132/60 Pulse Oximetry 100 100 10/06/18 06:00 10/06/18 08:00 10/06/18 08:24 Temperature 99.2 F Pulse Rate 95 H 86 92 H Respiratory Rate 19 16 18 Blood Pressure 138/63 130/60 Pulse Oximetry 99 100 100 10/06/18 10:00 10/06/18 11:28 10/06/18 12:00 Temperature 99.4 F Pulse Rate 90 92 H 94 H Respiratory Rate 16 25 H Blood Pressure 143/66 H Pulse Oximetry 100 100 10/06/18 14:00 10/06/18 16:00 10/06/18 16:20 Temperature 100.2 F H Pulse Rate 88 91 H 88 Respiratory Rate 18 16 Blood Pressure 145/66 H Pulse Oximetry 100 100 10/06/18 16:34 10/06/18 18:00 Temperature Pulse Rate 90 Respiratory Rate 19 Blood Pressure Pulse Oximetry 100 Intake & Output 10/06/18 10/06/18 10/07/18 06:59 18:59 06:59 Intake Total 928 / 928 1755 / 1755 Output Total 300 / 300 500 / 500 Balance 628 / 628 1255 / 1255 Weight 60.3 kg Intake: IV 100 / 100 200 / 200 Maxipime Inj 1,000 MG In NS Inj 100 / 100 200 / 200 100 ML @ 200 mls/hr IV.SIG Q8H JORGE Rx#:[id number] Tube Feeding 328 / 328 555 / 555 Water Bolus Amount 250 / 250 500 / 500 Free Water Amount 250 / 250 500 / 500 Output: Urine 500 / 500 Urine Amount (Catheter) 300 / 300 Female External 300 / 300 Other: Date of Last Bowel Movement 10/06/18 10/06/18 # Incontinent Bowel Movements 2 1 GENERAL: Elderly Female, on Vent, does't follow commands SKIN: Warm and dry. HEAD: Normocephalic. EYES: No scleral icterus. No injection or drainage. NECK: Supple, trachea midline. No JVD or lymphadenopathy. Trach CARDIOVASCULAR: Regular rate and rhythm without murmurs, gallops, or rubs. RESPIRATORY: Breath sounds equal bilaterally. No accessory muscle use. GASTROINTESTINAL: Abdomen soft, non-tender, nondistended. Has PEG MUSCULOSKELETAL: No cyanosis, or edema. has Left AKA BACK: Nontender without obvious deformity. No CVA tenderness. - Urinary Catheter Management Indwelling Temp Sensing Catheter Cath placed during this visit: yes, but has since been removed by the nurse Reason for continuing: Severe pressure ulcer/wound Insertion date: 09/18/18 Insertion time: 18:50 Removal date: 09/23/18 Removal time: 16:00 Female External Cath placed during this visit: no Straight Cath placed during this visit: no Assessment and Plan - Plan IMPRESSION: VDRF large Rt lung mass COPD HTN H/O CVA PLAN: Cont vent support PRVC-AC CPAP trial daily Aerosol nebs Cont Abx Trach care. Tube feeding
[2018-10-07] MEDS: Oral Hygiene Kit OROPHARYNG SCH ×4 (00:05→15:56)
[2018-10-07] MEDS: Pantoprazole Inj 40 MG Vial IV.PUSH SCH ×2 (00:05→12:53)
[2018-10-07] MEDS: Insulin NovoLIN Regular Correctional Sugar Inj SQ SCH ×4 (00:08→18:47)
--- NOTE | 2018-10-07 04:39 | XR ---
EXAM DATE: 10/07/2018 4:17 AM EST AGE/SEX: 68 years / Female INDICATIONS: Shortness of breath, possible pulmonary disease. CLINICAL DATA: This is the patient's subsequent encounter. Patient reports that signs and symptoms h ave been present for 2 weeks and indicates a pain score of Nonresponsive. MEDICAL/SURGICAL HISTORY: Hypertension. Diabetes. Cerebrovascular disease. . Tracheostomy. Am putation above left knee. PEG tube placement. COMPARISON: [facility] – [place] CHEST 1V SINGLE AP, 10/02/2018. . FINDINGS: Portable AP view of the chest demonstrates a normal-sized cardiac silhouette. Tracheostomy overlies t he tracheal air shadow and multiple EKG lines overlie the patient. There is a stable airspace opacity in the right lower lung zone. Mild atelectasis is appreciated at the left lung base. There is no pne umothorax. Bones demonstrate no acute finding. CONCLUSION: Stable chest x-ray with airspace opacity in the right lower lung zone. Electronically signed by: Emil Falk MD Board Certified Radiologist 10/07/2018 4:37 AM EST
[2018-10-07] MEDS: dilTIAZem 30 MG Tablet PO SCH ×5 (05:03→22:05)
[2018-10-07 06:33] LABS: Baso % (Auto) 0.9 % (0.0-2.0); Eos # (Auto) 0.7 th/mm3 (0.0-0.4); Eos % (Auto) 12.4 % (0.0-4.0); Hematocrit 29.4 % (35.0-46.0); Hemoglobin 9.2 gm/dL (11.6-15.3); Lymph % (Auto) 17.6 % (9.0-44.0); Mean Corpuscular HGB Conc 31.5 % (32.0-36.0); Mean Corpuscular Hemoglobin 24.8 pg (27.0-34.0); Mean Corpuscular Volume 78.7 fL (80.0-100.0); Mono # (Auto) 0.4 th/mm3 (0.0-0.9); Mono % (Auto) 6.6 % (0.0-8.0); Neut # (Auto) 3.6 th/mm3 (1.8-7.7); Neut % (Auto) 62.5 % (16.0-70.0); Platelet Count 267 th/mm3 (150-450); Red Blood Count 3.73 mil/mm3 (4.00-5.30); Red Cell Distribution Width 20.7 % (11.6-17.2); White Blood Count 5.8 th/mm3 (4.0-11.0)
[2018-10-07 06:53] LABS: Anion Gap 7 meq/L (5-15); Aspartate Aminotransferase 13 U/L (15-37); Blood Urea Nitrogen 9 mg/dL (7-18); Calcium 8.6 mg/dL (8.5-10.1); Chloride 110 meq/L (98-107); Glomerular Filtration Rate Greater Than 89 mL/min (>89); Glucose,Random 110 mg/dL (74-106); Magnesium 2.1 mg/dL (1.5-2.5); Potassium 3.8 meq/L (3.5-5.1); Sodium 143 meq/L (136-145)
[2018-10-07 06:58] LABS: Alanine Aminotransferase 16 U/L (10-53); Alkaline Phosphatase 95 U/L (45-117); Phosphorus 2.6 mg/dL (2.5-4.9); Total Protein 7.4 g/dL (6.4-8.2)
[2018-10-07] MEDS: Enoxaparin Inj 60 MG/0.6 ML Syringe SQ SCH ×2 (08:45→21:45)
[2018-10-07] MEDS: Chlorhexidine 0.12% Oral Kit 15 ML UDC OROPHARYNG SCH ×2 (08:46→21:45)
[2018-10-07] MEDS: Senna/Docusate Sodium 8.6/50 MG Tablet PO SCH ×2 (08:47→21:45)
--- NOTE | 2018-10-07 12:11 | P.PNGI ---
Subjective Interval history: Patient awake and alert Family present Abdomen mildly distended with positive bowel sounds GI has been asked to evaluate patient vomiting tube feeding this a.m. with noted small amount of mucoid drainage at PEG tube site <Yael Haines - Last Filed: 10/07/18 12:05> Physical Exam Vital signs: Vital Signs 10/06/18 13:00 10/06/18 14:00 10/06/18 15:00 Temperature Pulse Rate 92 H 88 89 Respiratory Rate 25 H 13 42 H Blood Pressure 138/63 126/61 140/63 Pulse Oximetry 99 100 100 10/06/18 16:00 10/06/18 16:20 10/06/18 16:34 Temperature 100.2 F H Pulse Rate 91 H 88 Respiratory Rate 43 H 16 19 Blood Pressure 145/66 H Pulse Oximetry 100 100 100 10/06/18 17:00 10/06/18 18:00 10/06/18 19:00 Temperature Pulse Rate 96 H 90 97 H Respiratory Rate 27 H 17 43 H Blood Pressure 146/66 H 143/65 H 152/70 H Pulse Oximetry 99 100 100 10/06/18 20:00 10/06/18 20:43 10/06/18 21:00 Temperature 99.5 F Pulse Rate 92 H 100 H 97 H Respiratory Rate 19 18 34 H Blood Pressure 152/69 H 147/68 H Pulse Oximetry 100 100 10/06/18 22:00 10/06/18 23:00 10/07/18 00:00 Temperature Pulse Rate 100 H 101 H 91 H Respiratory Rate 19 42 H 16 Blood Pressure 147/67 H 144/66 H 139/63 Pulse Oximetry 99 100 100 10/07/18 00:45 10/07/18 01:00 10/07/18 02:00 Temperature Pulse Rate 101 H 104 H 94 H Respiratory Rate 19 16 16 Blood Pressure 138/62 126/60 Pulse Oximetry 100 100 10/07/18 03:00 10/07/18 04:00 10/07/18 05:00 Temperature Pulse Rate 100 H 103 H 104 H Respiratory Rate 20 18 36 H Blood Pressure 129/62 144/65 H 148/69 H Pulse Oximetry 100 99 100 10/07/18 06:00 10/07/18 07:00 10/07/18 07:46 Temperature Pulse Rate 113 H 104 H 99 H Respiratory Rate 30 H 17 12 Blood Pressure 133/89 120/59 L Pulse Oximetry 100 97 10/07/18 07:57 10/07/18 08:00 Temperature 99.9 F H Pulse Rate 102 H Respiratory Rate 14 33 H Blood Pressure 114/58 L Pulse Oximetry 98 99 Intake & Output 10/06/18 10/07/18 10/07/18 18:59 06:59 18:59 Intake Total 1755 / 1755 1288 / 1288 250 / 250 Output Total 500 / 500 400 / 400 Balance 1255 / 1255 888 / 888 250 / 250 Weight 58.6 kg Intake: IV 200 / 200 200 / 200 Maxipime Inj 1,000 MG In NS Inj 200 / 200 200 / 200 100 ML @ 200 mls/hr IV.SIG Q8H [facility] Rx#:[id number] Tube Feeding 555 / 555 588 / 588 Water Bolus Amount 500 / 500 250 / 250 Free Water Amount 500 / 500 250 / 250 250 / 250 Output: Urine 500 / 500 Emesis 200 / 200 Urine Amount (Catheter) 200 / 200 Female External 200 / 200 Other: # Incontinent Voids 1 Date of Last Bowel Movement 10/06/18 10/07/18 # Bowel Movements 1 # Incontinent Bowel Movements 1 # Emeses 1 - Constitutional chronically ill appearing - Routine HEENT Exam Head: Present: normocephalic Comments: Tracheostomy Mechanically ventilated - Routine Respiratory Exam Present: patient mechanically ventilated - Routine Abdominal Exam Absent: tenderness, firm Comments: Abdomen mildly distended Positive bowel sounds present No apparent tenderness - Routine Skin Exam Present: dry, warm - Urinary Catheter Management Indwelling Temp Sensing Catheter Cath placed during this visit: yes, but has since been removed by the nurse Reason for continuing: Severe pressure ulcer/wound Insertion date: 09/18/18 Insertion time: 18:50 Removal date: 09/23/18 Removal time: 16:00 Female External Cath placed during this visit: no Straight Cath placed during this visit: no <Yael Haines - Last Filed: 10/07/18 12:05> Vital signs: Vital Signs 10/06/18 16:20 10/06/18 16:34 10/06/18 17:00 Temperature Pulse Rate 88 96 H Respiratory Rate 16 19 27 H Blood Pressure 146/66 H Pulse Oximetry 100 100 99 10/06/18 18:00 10/06/18 19:00 10/06/18 20:00 Temperature 99.5 F Pulse Rate 90 97 H 92 H Respiratory Rate 17 43 H 19 Blood Pressure 143/65 H 152/70 H 152/69 H Pulse Oximetry 100 100 100 10/06/18 20:43 10/06/18 21:00 10/06/18 22:00 Temperature Pulse Rate 100 H 97 H 100 H Respiratory Rate 18 34 H 19 Blood Pressure 147/68 H 147/67 H Pulse Oximetry 100 99 10/06/18 23:00 10/07/18 00:00 10/07/18 00:45 Temperature Pulse Rate 101 H 91 H 101 H Respiratory Rate 42 H 16 19 Blood Pressure 144/66 H 139/63 Pulse Oximetry 100 100 10/07/18 01:00 10/07/18 02:00 10/07/18 03:00 Temperature Pulse Rate 104 H 94 H 100 H Respiratory Rate 16 16 20 Blood Pressure 138/62 126/60 129/62 Pulse Oximetry 100 100 100 10/07/18 04:00 10/07/18 05:00 10/07/18 06:00 Temperature Pulse Rate 103 H 104 H 113 H Respiratory Rate 18 36 H 30 H Blood Pressure 144/65 H 148/69 H 133/89 Pulse Oximetry 99 100 100 10/07/18 07:00 10/07/18 07:46 10/07/18 07:57 Temperature Pulse Rate 104 H 99 H Respiratory Rate 17 12 14 Blood Pressure 120/59 L Pulse Oximetry 97 98 10/07/18 08:00 10/07/18 09:00 10/07/18 10:00 Temperature 99.9 F H Pulse Rate 102 H 111 H 105 H Respiratory Rate 33 H 32 H 20 Blood Pressure 114/58 L 129/62 132/60 Pulse Oximetry 99 96 100 10/07/18 11:00 10/07/18 12:00 10/07/18 12:59 Temperature 100.6 F H Pulse Rate 97 H 97 H 109 H Respiratory Rate 15 14 18 Blood Pressure 149/65 H 132/60 Pulse Oximetry 100 99 98 10/07/18 13:00 Temperature Pulse Rate Respiratory Rate Blood Pressure 137/63 Pulse Oximetry Intake & Output 10/06/18 10/07/18 10/07/18 18:59 06:59 18:59 Intake Total 1755 / 1755 1288 / 1288 250 / 250 Output Total 500 / 500 400 / 400 Balance 1255 / 1255 888 / 888 250 / 250 Weight 58.6 kg Intake: IV 200 / 200 200 / 200 Maxipime Inj 1,000 MG In NS Inj 200 / 200 200 / 200 100 ML @ 200 mls/hr IV.SIG Q8H [facility] Rx#:[id number] Tube Feeding 555 / 555 588 / 588 Water Bolus Amount 500 / 500 250 / 250 Free Water Amount 500 / 500 250 / 250 250 / 250 Output: Urine 500 / 500 Emesis 200 / 200 Urine Amount (Catheter) 200 / 200 Female External 200 / 200 Other: # Incontinent Voids 1 Date of Last Bowel Movement 10/06/18 10/07/18 10/07/18 # Bowel Movements 1 # Incontinent Bowel Movements 1 # Emeses 1 - Urinary Catheter Management Indwelling Temp Sensing Catheter Cath placed during this visit: no Female External Cath placed during this visit: no Straight Cath placed during this visit: no <Jaron Cooper - Last Filed: 10/07/18 16:02> Results - Labs CBC & Chem 7: 10/07/18 05:05 10/07/18 05:05 Laboratory Results - last 24 hr 10/06/18 10/06/18 10/07/18 12:32 18:26 00:08 WBC RBC Hgb Hct MCV MCH MCHC RDW Plt Count MPV Neut % (Auto) Lymph % (Auto) [place] % (Auto) Eos % (Auto) Baso % (Auto) Neut # (Auto) Lymph # (Auto) [place] # (Auto) Eos # (Auto) Baso # (Auto) WBC Differential Differential Comment Sodium Potassium Chloride Carbon Dioxide Anion Gap BUN Creatinine Estimated GFR POC Glucose 111 H 99 108 Random Glucose Calcium Phosphorus Magnesium Total Bilirubin AST ALT Alkaline Phosphatase Total Protein Albumin 10/07/18 10/07/18 05:05 05:05 WBC 5.8 RBC 3.73 L Hgb 9.2 L Hct 29.4 L MCV 78.7 L MCH 24.8 L MCHC 31.5 L RDW 20.7 H Plt Count 267 MPV 9.0 Neut % (Auto) 62.5 Lymph % (Auto) 17.6 Lincoln % (Auto) 6.6 Eos % (Auto) 12.4 H Baso % (Auto) 0.9 Neut # (Auto) 3.6 Lymph # (Auto) 1.0 Lincoln # (Auto) 0.4 Eos # (Auto) 0.7 H Baso # (Auto) 0.0 WBC Differential . Differential Comment Auto diff final Sodium 143 Potassium 3.8 Chloride 110 H Carbon Dioxide 26.0 Anion Gap 7 BUN 9 Creatinine 0.61 Estimated GFR Greater than 89 POC Glucose Random Glucose 110 H Calcium 8.6 Phosphorus 2.6 Magnesium 2.1 Total Bilirubin 0.2 AST 13 L ALT 16 Alkaline Phosphatase 95 Total Protein 7.4 Albumin 2.0 L Microbiology 10/01/18 16:57 Blood - Peripheral Aerobic Blood Culture - Final No growth in 5 days 10/01/18 16:57 Blood - Peripheral Anaerobic Blood Culture - Final No growth in 5 days 10/01/18 16:50 Blood - Peripheral Aerobic Blood Culture - Final No growth in 5 days 10/01/18 16:50 Blood - Peripheral Anaerobic Blood Culture - Final No growth in 5 days - Imaging Impressions Chest X-Ray 10/07/18 00:00 CONCLUSION: Stable chest x-ray with airspace opacity in the right lower lung zone. <Yael Haines - Last Filed: 10/07/18 12:05> - Labs CBC & Chem 7: 10/07/18 05:05 10/07/18 05:05 Laboratory Results - last 24 hr 10/06/18 10/07/18 10/07/18 18:26 00:08 05:05 WBC 5.8 RBC 3.73 L Hgb 9.2 L Hct 29.4 L MCV 78.7 L MCH 24.8 L MCHC 31.5 L RDW 20.7 H Plt Count 267 MPV 9.0 Neut % (Auto) 62.5 Lymph % (Auto) 17.6 Lincoln % (Auto) 6.6 Eos % (Auto) 12.4 H Baso % (Auto) 0.9 Neut # (Auto) 3.6 Lymph # (Auto) 1.0 Lincoln # (Auto) 0.4 Eos # (Auto) 0.7 H Baso # (Auto) 0.0 WBC Differential . Differential Comment Auto diff final Sodium Potassium Chloride Carbon Dioxide Anion Gap BUN Creatinine Estimated GFR POC Glucose 99 108 Random Glucose Calcium Phosphorus Magnesium Total Bilirubin AST ALT Alkaline Phosphatase Total Protein Albumin 10/07/18 10/07/18 05:05 12:57 WBC RBC Hgb Hct MCV MCH MCHC RDW Plt Count MPV Neut % (Auto) Lymph % (Auto) Lincoln % (Auto) Eos % (Auto) Baso % (Auto) Neut # (Auto) Lymph # (Auto) [place] # (Auto) Eos # (Auto) Baso # (Auto) WBC Differential Differential Comment Sodium 143 Potassium 3.8 Chloride 110 H Carbon Dioxide 26.0 Anion Gap 7 BUN 9 Creatinine 0.61 Estimated GFR Greater than 89 POC Glucose 129 H Random Glucose 110 H Calcium 8.6 Phosphorus 2.6 Magnesium 2.1 Total Bilirubin 0.2 AST 13 L ALT 16 Alkaline Phosphatase 95 Total Protein 7.4 Albumin 2.0 L Microbiology 10/01/18 16:57 Blood - Peripheral Aerobic Blood Culture - Final No growth in 5 days 10/01/18 16:57 Blood - Peripheral Anaerobic Blood Culture - Final No growth in 5 days 10/01/18 16:50 Blood - Peripheral Aerobic Blood Culture - Final No growth in 5 days 10/01/18 16:50 Blood - Peripheral Anaerobic Blood Culture - Final No growth in 5 days - Imaging Impressions Chest X-Ray 10/07/18 00:00 CONCLUSION: Stable chest x-ray with airspace opacity in the right lower lung zone. <Jaron Cooper - Last Filed: 10/07/18 16:02> Assessment and Plan (1) Anemia Status: Acute Code(s): D64.9 - Anemia, unspecified (2) Respiratory failure Status: Acute Code(s): J96.90 - Respiratory failure, unspecified, unspecified whether with hypoxia or hypercapnia - Plan This patient is a 68-year-old female with past medical history significant for CVA, left AKA, acute respiratory failure, diabetes, dysphagia, hypertension, hemiparesis, hemiplegia and hypoxia. Surgical history significant for PEG tube placement, tracheostomy and left above-knee amputation. Patient presented to [facility] emergency room via EMS for reported hypoxemia. Of note, patient was on home hospice prior to arrival. Upon arrival, patient was intubated by ER attending for protection of airway. Our service has been consulted to evaluate patient for worsening anemia requiring blood transfusion. Patient is currently being cared for in the critical care setting post tracheostomy placement, patient mechanically ventilated. Temperature 101.5 this a.m. sinus tach on cardiac cath lab technologist. Patient presently having loose watery stools, dignity shield applied with noted liquid brown stool present. ICU nurse reports no obvious noted bleeding. Hemoglobin 6.7 hematocrit 23.9. Patient currently receiving 1st of 2 units of packed RBCs for transfusion. Upon exam, estimated 5 x 5 cm hematoma to the left lower quadrant of abdomen. Left upper extremity phlebitis noted. Patient currently receiving Lovenox 60 mg subcutaneously every 12 hours. Anemia-requiring blood transfusion- Microcytic anemia christina chronic 68-year-old female admitted to [facility] for hypoxemia mental status changes. Patient intubated upon arrival. Our service has been consulted for worsening anemia now requiring blood transfusion of 2 units packed RBCs. There have been no obvious signs of bleeding reported. Patient presently trach and ventilated FiO2 35%. PEG tube with Glucerna at 60 mL's per hour. Abdomen soft with bowel sounds present, ~5 x 5 cm hematoma left lower quadrant. Patient currently receiving Lovenox 60 mg subcutaneous every 12 hours. -Hemoglobin 6.7 hematocrit 23.9 WBC 11.7 platelet count 242 -Total bilirubin 0.3 AST 18 ALT 25 alk phos 103 10/02/2018 Patient awake and alert Nonverbal Mechanically ventilated via trach-on no sedation No reported or active bleeding noted-hemoglobin 9.7 hematocrit 30.9 from 10.3 and 32.7 Slight rising BUN with stable creatinine may be indicative of upper GI bleeding possible dilated specimen value 6.7 on 10/01/2018 Dignity shield noted liquid brown stool present KUB: Persistent airspace consolidation involving the right lower lobe. Abdominal bowel gas pattern is normal. Nurse reports no PEG tube feeding residuals 10/03/2018 Patient resting soundly with eyes closed Mechanically ventilated via trach on no sedation No reported bleeding 8.8 hemoglobin 9.5 hematocrit 30.4 No enteric pathogens or WBCs noted on final report for stool studies Plan -Hold tube feedings after midnight 10/04/2018 -Monitor for active bleeding -Plan of care per critical care medicine -Monitor hemoglobin and hematocrit closely -Transfuse as needed -Pantoprazole 40 mg IV every 12 -Palliative following -Stool studies pending-Cryptosporidium and Giardia -Obtain consent for EGD and colonoscopy (planning for 10/04/2018) -GoLYTELY prep (10/03/2018 @ 1600) -Supportive care -Further recommendations to follow 10/05/2018 Patient remains intubated Status post EGD colonoscopy 10/04/2018-findings of chronic gastritis no distinct source of bleeding identified on upper or lower endoscopy Assessment Chronic anemia Acute respiratory failure Hemoglobin 8.7 hematocrit 28 platelet 255 INR 1 CMP is pending Stool studies were all negative for C. difficile, WBCs stool, enteric pathogens PCR, leptospiral odium antigen, and Giardia antigen. 10/07/2018 Nausea vomiting Patient evaluated due to reported nausea and vomiting tube feeding this a.m. ICU nurse reports 40 mL residual gastric content mucoid, scant amount of possible tube feeding around PEG tube site No noted bleeding Abdomen mildly distended with bowel sounds present Plan Resume tube feedings at trickle rate for patient's tolerance Gastrostomy tube flushes as per protocol Notify GI for increased residual as per protocol Monitor for any active bleeding Monitor labs Gastrostomy tube site dressings daily and as needed Continue PPI Supportive care This patient has been seen by myself and Dr. Cooper and this note is written on his behalf - Attending Attestation Dr. Cooper <Yael Haines - Last Filed: 10/07/18 12:05> (1) Anemia Status: Acute Code(s): D64.9 - Anemia, unspecified (2) Respiratory failure Status: Acute Code(s): J96.90 - Respiratory failure, unspecified, unspecified whether with hypoxia or hypercapnia - Attending Attestation I have seen and examined the patient and reviewed the patients care with the HOT MOLDER. I agree with the above assessment and recommendations as documented above. <Jaron Cooper - Last Filed: 10/07/18 16:02>
--- NOTE | 2018-10-07 13:36 | P.PNCC ---
Subjective Subjective Remarks/Hospital Course: 09/18: 68-year-old female past medical history of stroke, left BKA, who was on home hospice until just prior to arrival, presents for an evaluation of fever and altered mental status. According to EMS the patient had not required oxygen until beginning of this week when she had gradual increased demand of her oxygen. End-tidal CO2 prior to arrival was 6. Initial room nasal cannula saturation was 91, she was placed on nonrebreather position of comfort and transfer to emergency department. EMS related that the had elected to revoke the patient's DNR and hospice care prior to transferring her to the hospital. The patient apparently is normally a GCS of 14, apparently she does take some thickened food p.o. department the patient was severely altered with GCS of 6 on arrival [id number] and was intubated by ED attending for an airway protection. 09/19: Remains sedated, orally intubated on mechanical ventilation. CT chest showed right lower lobe lung mass suspicious for malignancy. Patient has a PEG tube following previous stroke. 09/20: Remains sedated, orally intubated on mechanical ventilation. Started on tube feeds. 09/21: Remains sedated, orally intubated on mechanical ventilation. Tolerating tube feeds. Right approximately swelling noted. 09/22 Is not tolerating CPAP trial when decrease PS below 18. Daughter at bedside, says will be here later. Says they don't think they want to proceed with lung biopsy at this time, but on the other hand she discusses the possibility of re-do trach. She says they are not sure how to proceed. I suggested we meet together. Daughter states she has been bedridden since stroke about 4 years ago. Has been in long term. PEG due to dysphagia, does not eat. Speaks a little but daughter states she has declined significantly over the last 2 weeks. 09/23 No significant change. Patient does not tolerate CPAP. Family is very clear that they do not wish to pursue biopsy or diagnosis of suspected lung cancer. At this time, they wish to continue supportive care with vent and FULL CODE. 09/24 No change. Does not tolerate CPAP. Will diurese for positive fluid balance. 09/25 Now on CPAP 20/5 and not tolerating wean. Continue attempts at diuresis to address positive fluid balance since admission 09/26: Remains sedated, orally intubated on mechanical ventilation. Hold CPAP trials yesterday 09/27 Patient is sedated with Diprivan and intubated. Tolerating tube feeds. Afebrile. 09/28 Patient remains intubated and sedated. T;100.8 09/29 Has not made any progress towards weaning. Family offered comfort measures however they expressed desire to proceed with trach Subjective: 09/30 status post bedside tracheostomy yesterday by Dr. Gavin. Discontinued propofol drip. On CPAP 14/5 for 2 hours today. BP is low, will need to hold metoprolol and titrate back on cardizem (nurses held some doses yesterday too). Positive fluid balance but not able to diurese today due to low BP. Awaiting bed at [facility]. 10/01 Patient remains on ventilator via trach. On no sedation. Hgb 6.7 this morning and T: 100.4 at midnight. Tachycardic. 10/02 Patient is on ventilator via trach. On no sedation. Spiked fever with T: 101.5. s/p transfusion 2u PRBC yesterday. Mcmillan/thick secretions noted per nursing staff. 10/03 Patient had low grade fever with T:100.4 last night. Tube feeds held for abd distention. KUB yesterday showed normal bowel gas pattern. 10/04 Patient is on ventilator via trach. For panendoscopy today. T:99.8 last night. 10/05 Patient is on ventilator via trach, on no drips. s/p panendoscopy yesterday showed chronic gastritis with no source of bleeding identified on upper or lower endoscopy. Afebrile. 10/06 Patient remains on ventilator via trach. T:99.9 yesterday 10/07: Remains on the vent continues to fail CPAP trials due to tachypnea. No nausea vomiting overnight currently resolved. Chest tube had been restarted. Low-grade fever 100.6 Objective Vital Signs / I&O: Vital Signs 10/06/18 14:00 10/06/18 15:00 10/06/18 16:00 Temperature 100.2 F H Pulse Rate 88 89 91 H Respiratory Rate 13 42 H 43 H Blood Pressure 126/61 140/63 145/66 H Pulse Oximetry 100 100 100 10/06/18 16:20 10/06/18 16:34 10/06/18 17:00 Temperature Pulse Rate 88 96 H Respiratory Rate 16 19 27 H Blood Pressure 146/66 H Pulse Oximetry 100 100 99 10/06/18 18:00 10/06/18 19:00 10/06/18 20:00 Temperature 99.5 F Pulse Rate 90 97 H 92 H Respiratory Rate 17 43 H 19 Blood Pressure 143/65 H 152/70 H 152/69 H Pulse Oximetry 100 100 100 10/06/18 20:43 10/06/18 21:00 10/06/18 22:00 Temperature Pulse Rate 100 H 97 H 100 H Respiratory Rate 18 34 H 19 Blood Pressure 147/68 H 147/67 H Pulse Oximetry 100 99 10/06/18 23:00 10/07/18 00:00 10/07/18 00:45 Temperature Pulse Rate 101 H 91 H 101 H Respiratory Rate 42 H 16 19 Blood Pressure 144/66 H 139/63 Pulse Oximetry 100 100 10/07/18 01:00 10/07/18 02:00 10/07/18 03:00 Temperature Pulse Rate 104 H 94 H 100 H Respiratory Rate 16 16 20 Blood Pressure 138/62 126/60 129/62 Pulse Oximetry 100 100 100 10/07/18 04:00 10/07/18 05:00 10/07/18 06:00 Temperature Pulse Rate 103 H 104 H 113 H Respiratory Rate 18 36 H 30 H Blood Pressure 144/65 H 148/69 H 133/89 Pulse Oximetry 99 100 100 10/07/18 07:00 10/07/18 07:46 10/07/18 07:57 Temperature Pulse Rate 104 H 99 H Respiratory Rate 17 12 14 Blood Pressure 120/59 L Pulse Oximetry 97 98 10/07/18 08:00 10/07/18 09:00 10/07/18 10:00 Temperature 99.9 F H Pulse Rate 102 H 111 H 105 H Respiratory Rate 33 H 32 H 20 Blood Pressure 114/58 L 129/62 132/60 Pulse Oximetry 99 96 100 10/07/18 11:00 10/07/18 12:00 10/07/18 12:59 Temperature 100.6 F H Pulse Rate 97 H 97 H 109 H Respiratory Rate 15 14 18 Blood Pressure 149/65 H 132/60 Pulse Oximetry 100 99 98 10/07/18 13:00 Temperature Pulse Rate Respiratory Rate Blood Pressure 137/63 Pulse Oximetry Intake & Output 10/06/18 10/07/18 10/07/18 18:59 06:59 18:59 Intake Total 1755 / 1755 1288 / 1288 250 / 250 Output Total 500 / 500 400 / 400 Balance 1255 / 1255 888 / 888 250 / 250 Weight 58.6 kg Intake: IV 200 / 200 200 / 200 Maxipime Inj 1,000 MG In NS Inj 200 / 200 200 / 200 100 ML @ 200 mls/hr IV.SIG Q8H [facility] Rx#:[id number] Tube Feeding 555 / 555 588 / 588 Water Bolus Amount 500 / 500 250 / 250 Free Water Amount 500 / 500 250 / 250 250 / 250 Output: Urine 500 / 500 Emesis 200 / 200 Urine Amount (Catheter) 200 / 200 Female External 200 / 200 Other: # Incontinent Voids 1 Date of Last Bowel Movement 10/06/18 10/07/18 # Bowel Movements 1 # Incontinent Bowel Movements 1 # Emeses 1 Result Diagrams: 10/07/18 05:05 10/07/18 05:05 Objective Remarks: GENERAL: Well-nourished, well-developed patient. SKIN: Warm and dry. HEAD: Atraumatic. Normocephalic. EYES: Pupils equal and round. No scleral icterus. No injection or drainage. ENT: No nasal bleeding or discharge. Mucous membranes pink and moist. NECK: Tracheostomy in place, slight pink tinge to secretions, no active bleeding. CARDIOVASCULAR: S1S2 normal, No murmurs rubs or gallops. RESPIRATORY: Orotracheally intubated on mechanical ventilation. B/L equal air entry GASTROINTESTINAL: Abdomen soft, non-tender,distended. PEG in place, MUSCULOSKELETAL: Extremities without clubbing, cyanosis, or edema. s/p L AKA. NEUROLOGICAL: Awakens, looks around. Blinks and squeezes hand to command Assessment and Plan - Assessment and Plan Plan: NEURO: History of stroke Off sedation. Monitor neuro status Not following commands RESP: Acute respiratory failure on mechanical ventilation Emphysema Lung mass History of prior trach after stroke, has been subsequently decannulated Per Dr. De Jesus. not wishing to pursue CT-guided biopsy. Continue with vent support Daily CPAP trials. Vent bundle/nebs. Percutaneous tracheostomy performed at bedside 09/29. Pulm toilet, trach care CV: HTN Monitor BP/heart rate keep MAP>65mmHg. On Cardizem 30mg q6 with hold orders. GI: PEG in place. On Glucerna 1.5 @ 40ml/hr with goal rate 60ml/hr KUB abdomen 10/02 Normal bowel gas pattern. CT abd/pelvis 10/03: No evidence of bowel obstruction or ileus. FEN/RENAL: Acute hypernatremia- resolved Monitor renal function, I/O's, electrolytes replacement per protocol. Free water 250ml Q8, ID: HCAP UTI Urine culture from 09/18 with providentia and Proteus. BC 10/01: NGTD sputum cx 09/28 and 10/03 : No growth On abx Cefepime and Vanco, d/c Vanco, monitor for signs of infections ( Fever, WBC) C-diff PCR negative on 10/01 HEME: R brachial DVT Anemia Lovenox 60 mg subcu every 12 hours. s/p Transfuse 2u PRBC 10/01 GI is following for EGD/Colonoscopy today ENDO: Diabetes mellitus Insulin sliding scale PROPH: SCD/Lovenox for DVT prophylaxis. Protonix 40mg Q12 for stress ulcer prophylaxis. 10/01 Doppler US UE b/l: Superficial venous thrombosis identified in the right cephalic vein. No evidence of DVT. 09/21 Doppler US RUE: Occlusive thrombus cephalic and brachial veins ACCESS: PIV x2. Full code Level 3 follow-up
[2018-10-07] MEDS ORDERED: Pharmacy Ordered Lab Info OTHER ONE (14:45)
--- NOTE | 2018-10-07 19:47 | P.PNPL ---
Subjective Interval history: 68 YOAA female who was with Hospice svc, now rescended Does't tolerate CPAP off sedation Tolerates TF Awake, does't follow command Physical Exam Vital signs: Vital Signs 10/06/18 20:00 10/06/18 20:43 10/06/18 21:00 Temperature 99.5 F Pulse Rate 92 H 100 H 97 H Respiratory Rate 19 18 34 H Blood Pressure 152/69 H 147/68 H Pulse Oximetry 100 100 10/06/18 22:00 10/06/18 23:00 10/07/18 00:00 Temperature Pulse Rate 100 H 101 H 91 H Respiratory Rate 19 42 H 16 Blood Pressure 147/67 H 144/66 H 139/63 Pulse Oximetry 99 100 100 10/07/18 00:45 10/07/18 01:00 10/07/18 02:00 Temperature Pulse Rate 101 H 104 H 94 H Respiratory Rate 19 16 16 Blood Pressure 138/62 126/60 Pulse Oximetry 100 100 10/07/18 03:00 10/07/18 04:00 10/07/18 05:00 Temperature Pulse Rate 100 H 103 H 104 H Respiratory Rate 20 18 36 H Blood Pressure 129/62 144/65 H 148/69 H Pulse Oximetry 100 99 100 10/07/18 06:00 10/07/18 07:00 10/07/18 07:46 Temperature Pulse Rate 113 H 104 H 99 H Respiratory Rate 30 H 17 12 Blood Pressure 133/89 120/59 L Pulse Oximetry 100 97 10/07/18 07:57 10/07/18 08:00 10/07/18 09:00 Temperature 99.9 F H Pulse Rate 102 H 111 H Respiratory Rate 14 33 H 32 H Blood Pressure 114/58 L 129/62 Pulse Oximetry 98 99 96 10/07/18 10:00 10/07/18 11:00 10/07/18 12:00 Temperature 100.6 F H Pulse Rate 105 H 97 H 97 H Respiratory Rate 20 15 14 Blood Pressure 132/60 149/65 H 132/60 Pulse Oximetry 100 100 99 10/07/18 12:59 10/07/18 13:00 10/07/18 14:00 Temperature Pulse Rate 109 H 108 H 92 H Respiratory Rate 18 18 16 Blood Pressure 137/63 129/60 Pulse Oximetry 98 98 100 10/07/18 15:00 10/07/18 16:00 10/07/18 17:00 Temperature 99.7 F H Pulse Rate 90 104 H 99 H Respiratory Rate 16 35 H 38 H Blood Pressure 117/56 L 151/66 H 142/64 H Pulse Oximetry 97 88 L 100 10/07/18 17:01 10/07/18 18:00 Temperature Pulse Rate 98 H 105 H Respiratory Rate 16 Blood Pressure Pulse Oximetry 100 Intake & Output 10/07/18 10/07/18 10/08/18 06:59 18:59 06:59 Intake Total 1288 / 1288 350 / 350 Output Total 400 / 400 Balance 888 / 888 350 / 350 Weight 58.6 kg Intake: IV 200 / 200 100 / 100 Maxipime Inj 1,000 MG In NS Inj 200 / 200 100 / 100 100 ML @ 200 mls/hr IV.SIG Q8H JORGE Rx#:[id number] Tube Feeding 588 / 588 Water Bolus Amount 250 / 250 Free Water Amount 250 / 250 250 / 250 Output: Emesis 200 / 200 Urine Amount (Catheter) 200 / 200 Female External 200 / 200 Other: # Incontinent Voids 1 Date of Last Bowel Movement 10/07/18 10/07/18 # Bowel Movements 1 # Emeses 1 GENERAL: Elderly AA female, on Vent SKIN: Warm and dry. HEAD: Normocephalic. EYES: No scleral icterus. No injection or drainage. NECK: Supple, trachea midline. No JVD or lymphadenopathy. Has Trach CARDIOVASCULAR: Regular rate and rhythm without murmurs, gallops, or rubs. RESPIRATORY: Breath sounds equal bilaterally. No accessory muscle use. GASTROINTESTINAL: Abdomen soft, non-tender, nondistended. MUSCULOSKELETAL: No cyanosis, or edema. BACK: Nontender without obvious deformity. No CVA tenderness. - Urinary Catheter Management Indwelling Temp Sensing Catheter Cath placed during this visit: yes, but has since been removed by the nurse Reason for continuing: Severe pressure ulcer/wound Insertion date: 09/18/18 Insertion time: 18:50 Removal date: 09/23/18 Removal time: 16:00 Female External Cath placed during this visit: no Straight Cath placed during this visit: no Indwelling Urethral Catheter Cath placed during this visit: yes Reason for continuing: Severe pressure ulcer/wound Insertion date: 10/07/18 Insertion time: 10:00 Assessment and Plan - Plan IMPRESSION: VDRF large Rt lung mass COPD HTN H/O CVA PLAN: Cont vent support [id number] CPAP trial daily Aerosol nebs Cont Abx Trach care. Tube feeding
[2018-10-08] MEDS: Insulin NovoLIN Regular Correctional Sugar Inj SQ SCH ×5 (00:15→23:08)
[2018-10-08] MEDS: Pantoprazole Inj 40 MG Vial IV.PUSH SCH ×2 (00:22→12:11)
[2018-10-08] MEDS: Oral Hygiene Kit OROPHARYNG SCH ×5 (00:22→23:08)
[2018-10-08] MEDS: dilTIAZem 30 MG Tablet PO SCH ×4 (06:15→21:39)
[2018-10-08 07:00] LABS: Baso % (Auto) 0.4 % (0.0-2.0); Eos # (Auto) 0.5 th/mm3 (0.0-0.4); Eos % (Auto) 8.5 % (0.0-4.0); Hematocrit 28.7 % (35.0-46.0); Hemoglobin 9.2 gm/dL (11.6-15.3); Lymph % (Auto) 17.8 % (9.0-44.0); Mean Corpuscular HGB Conc 32.1 % (32.0-36.0); Mean Corpuscular Hemoglobin 25.6 pg (27.0-34.0); Mean Corpuscular Volume 79.6 fL (80.0-100.0); Mean Platelet Volume 8.7 fL (7.0-11.0); Mono # (Auto) 0.4 th/mm3 (0.0-0.9); Mono % (Auto) 6.2 % (0.0-8.0); Neut # (Auto) 3.9 th/mm3 (1.8-7.7); Neut % (Auto) 67.1 % (16.0-70.0); Platelet Count 254 th/mm3 (150-450); Red Cell Distribution Width 20.8 % (11.6-17.2); White Blood Count 5.8 th/mm3 (4.0-11.0)
[2018-10-08 07:07] LABS: Anion Gap 8 meq/L (5-15); Blood Urea Nitrogen 7 mg/dL (7-18); Calcium 8.6 mg/dL (8.5-10.1); Chloride 109 meq/L (98-107); Glomerular Filtration Rate Greater Than 89 mL/min (>89); Glucose,Random 75 mg/dL (74-106); Potassium 3.4 meq/L (3.5-5.1); Sodium 142 meq/L (136-145)
[2018-10-08] MEDS: Enoxaparin Inj 60 MG/0.6 ML Syringe SQ SCH ×2 (09:48→20:15)
[2018-10-08] MEDS: Chlorhexidine 0.12% Oral Kit 15 ML UDC OROPHARYNG SCH ×2 (09:48→20:15)
[2018-10-08] MEDS: Senna/Docusate Sodium 8.6/50 MG Tablet PO SCH ×2 (09:50→20:15)
--- NOTE | 2018-10-08 10:23 | XR ---
EXAM DATE: 10/08/2018 9:39 AM EST AGE/SEX: 68 years / Female INDICATIONS: Concern for free air around PEG tube insertion site. CLINICAL DATA: This is the patient's initial encounter. Patient reports that signs and symptoms have been present for 1 day and indicates a pain score of Nonresponsive. MEDICAL/SURGICAL HISTORY: . Hypertension. Diabetes. Cerebrovascular disease. . Tracheostomy. Am putation above left knee. PEG tube placement. . COMPARISON: [facility], ABDOMEN 1V KUB, 10/02/2018. . FINDINGS: Gastrostomy present in satisfactory position. Intestinal gas pattern is nonspecific and benign. No e vidence of pneumoperitoneum. Vascular calcifications. Dystrophic calcifications around the hips. Dege nerative change in the spine. CONCLUSION: No acute findings Electronically signed by: Emil Kirby MD Board Certified Radiologist 10/08/2018 10:22 AM EST
--- NOTE | 2018-10-08 12:01 | P.PNCC ---
Subjective Subjective Remarks/Hospital Course: 09/18: 68-year-old female past medical history of stroke, left BKA, who was on home hospice until just prior to arrival, presents for an evaluation of fever and altered mental status. According to EMS the patient had not required oxygen until beginning of this week when she had gradual increased demand of her oxygen. End-tidal CO2 prior to arrival was 6. Initial room nasal cannula saturation was 91, she was placed on nonrebreather position of comfort and transfer to emergency department. EMS related that the had elected to revoke the patient's DNR and hospice care prior to transferring her to the hospital. The patient apparently is normally a GCS of 14, apparently she does take some thickened food p.o. department the patient was severely altered with GCS of 6 on arrival [id number] and was intubated by ED attending for an airway protection. 09/19: Remains sedated, orally intubated on mechanical ventilation. CT chest showed right lower lobe lung mass suspicious for malignancy. Patient has a PEG tube following previous stroke. 09/20: Remains sedated, orally intubated on mechanical ventilation. Started on tube feeds. 09/21: Remains sedated, orally intubated on mechanical ventilation. Tolerating tube feeds. Right approximately swelling noted. 09/22 Is not tolerating CPAP trial when decrease PS below 18. Daughter at bedside, says will be here later. Says they don't think they want to proceed with lung biopsy at this time, but on the other hand she discusses the possibility of re-do trach. She says they are not sure how to proceed. I suggested we meet together. Daughter states she has been bedridden since stroke about 4 years ago. Has been in [facility]. PEG due to dysphagia, does not eat. Speaks a little but daughter states she has declined significantly over the last 2 weeks. 09/23 No significant change. Patient does not tolerate CPAP. Family is very clear that they do not wish to pursue biopsy or diagnosis of suspected lung cancer. At this time, they wish to continue supportive care with vent and FULL CODE. 09/24 No change. Does not tolerate CPAP. Will diurese for positive fluid balance. 09/25 Now on CPAP 20/5 and not tolerating wean. Continue attempts at diuresis to address positive fluid balance since admission 09/26: Remains sedated, orally intubated on mechanical ventilation. Hold CPAP trials yesterday 09/27 Patient is sedated with Diprivan and intubated. Tolerating tube feeds. Afebrile. 09/28 Patient remains intubated and sedated. T;100.8 09/29 Has not made any progress towards weaning. Family offered comfort measures however they expressed desire to proceed with trach Subjective: 09/30 status post bedside tracheostomy yesterday by Dr. Gavin. Discontinued propofol drip. On CPAP 14/5 for 2 hours today. BP is low, will need to hold metoprolol and titrate back on cardizem (nurses held some doses yesterday too). Positive fluid balance but not able to diurese today due to low BP. Awaiting bed at [facility]. 10/01 Patient remains on ventilator via trach. On no sedation. Hgb 6.7 this morning and T: 100.4 at midnight. Tachycardic. 10/02 Patient is on ventilator via trach. On no sedation. Spiked fever with T: 101.5. s/p transfusion 2u PRBC yesterday. Mcmillan/thick secretions noted per nursing staff. 10/03 Patient had low grade fever with T:100.4 last night. Tube feeds held for abd distention. KUB yesterday showed normal bowel gas pattern. 10/04 Patient is on ventilator via trach. For panendoscopy today. T:99.8 last night. 10/05 Patient is on ventilator via trach, on no drips. s/p panendoscopy yesterday showed chronic gastritis with no source of bleeding identified on upper or lower endoscopy. Afebrile. 10/06 Patient remains on ventilator via trach. T:99.9 yesterday 10/07: Remains on the vent continues to fail CPAP trials due to tachypnea. No nausea vomiting overnight currently resolved. Chest tube had been restarted. Low-grade fever 100.6 10/08: Continues to fail CPAP trials. However on vent support appears comfortable. Daughter at the bedside updated. No fever today Objective Vital Signs / I&O: Vital Signs 10/07/18 12:00 10/07/18 12:59 10/07/18 13:00 Temperature 100.6 F H Pulse Rate 97 H 109 H 108 H Respiratory Rate 14 18 18 Blood Pressure 132/60 137/63 Pulse Oximetry 99 98 98 10/07/18 14:00 10/07/18 15:00 10/07/18 16:00 Temperature 99.7 F H Pulse Rate 92 H 90 104 H Respiratory Rate 16 16 35 H Blood Pressure 129/60 117/56 L 151/66 H Pulse Oximetry 100 97 88 L 10/07/18 17:00 10/07/18 17:01 10/07/18 18:00 Temperature 98.0 F Pulse Rate 99 H 98 H 105 H Respiratory Rate 38 H 16 34 H Blood Pressure 142/64 H 153/67 H Pulse Oximetry 100 100 99 10/07/18 19:00 10/07/18 20:00 10/07/18 20:20 Temperature 99.2 F Pulse Rate 101 H 84 Respiratory Rate 24 16 16 Blood Pressure 154/67 H 146/66 H Pulse Oximetry 100 100 100 10/07/18 20:24 10/07/18 21:00 10/07/18 22:00 Temperature Pulse Rate 83 98 H 101 H Respiratory Rate 16 16 16 Blood Pressure 151/68 H 142/65 H Pulse Oximetry 100 100 10/07/18 23:00 10/07/18 23:22 10/08/18 00:00 Temperature Pulse Rate 90 113 H Respiratory Rate 16 17 34 H Blood Pressure 150/67 H 150/68 H Pulse Oximetry 100 100 100 10/08/18 01:00 10/08/18 02:00 10/08/18 03:00 Temperature Pulse Rate 115 H 98 H 108 H Respiratory Rate 29 H 15 27 H Blood Pressure 157/69 H 125/66 148/67 H Pulse Oximetry 100 100 100 10/08/18 03:07 10/08/18 04:00 10/08/18 05:00 Temperature Pulse Rate 104 H 91 H Respiratory Rate 20 16 16 Blood Pressure 141/63 H 147/65 H Pulse Oximetry 100 100 100 10/08/18 06:00 10/08/18 07:16 10/08/18 11:00 Temperature Pulse Rate 97 H 104 H 104 H Respiratory Rate 16 20 38 H Blood Pressure 145/66 H Pulse Oximetry 100 100 Intake & Output 10/07/18 10/08/18 10/08/18 18:59 06:59 18:59 Intake Total 1150 / 1150 100 / 100 350 / 350 Output Total 375 / 375 450 / 450 Balance 775 / 775 -350 / -350 350 / 350 Weight 58.1 kg Intake: IV 100 / 100 100 / 100 100 / 100 Maxipime Inj 1,000 MG In NS Inj 100 / 100 100 / 100 100 / 100 100 ML @ 200 mls/hr IV.SIG Q8H JORGE Rx#:[id number] Oral 0 / 0 Tube Feeding 300 / 300 0 / 0 Tube Irrigant 100 / 100 Water Bolus Amount 400 / 400 Free Water Amount 250 / 250 250 / 250 Output: Urine 450 / 450 Stool 0 / 0 Urine/Stool Mix 0 / 0 Urine Amount (Catheter) 375 / 375 Female External 100 / 100 Indwelling Urethral Catheter 275 / 275 Other: # Voids 1 # Incontinent Voids 1 Date of Last Bowel Movement 10/07/18 10/07/18 # Bowel Movements 2 0 # Incontinent Bowel Movements 0 Result Diagrams: 10/08/18 05:29 10/08/18 05:29 Objective Remarks: GENERAL: Well-nourished, well-developed patient. SKIN: Warm and dry. HEAD: Atraumatic. Normocephalic. EYES: Pupils equal and round. No scleral icterus. No injection or drainage. ENT: No nasal bleeding or discharge. Mucous membranes pink and moist. NECK: Tracheostomy in place, slight pink tinge to secretions, no active bleeding. CARDIOVASCULAR: S1S2 normal, No murmurs rubs or gallops. RESPIRATORY: Orotracheally intubated on mechanical ventilation. B/L equal air entry GASTROINTESTINAL: Abdomen soft, non-tender,distended. PEG in place, MUSCULOSKELETAL: Extremities without clubbing, cyanosis, or edema. s/p L AKA. NEUROLOGICAL: Awakens, looks around. Blinks and squeezes hand to command Assessment and Plan - Assessment and Plan Plan: NEURO: History of stroke Off sedation. Monitor neuro status RESP: Acute respiratory failure on mechanical ventilation Emphysema Lung mass History of prior trach after stroke, has been subsequently decannulated Per Dr. De Jesus. not wishing to pursue CT-guided biopsy. Continue with vent support Daily CPAP trials. Vent bundle/nebs. Percutaneous tracheostomy performed at bedside 09/29. Pulm toilet, trach care CV: HTN Monitor BP/heart rate keep MAP>65mmHg. On Cardizem 30mg q6 with hold orders. GI: PEG in place. On Glucerna 1.5 @ 40ml/hr with goal rate 60ml/hr KUB abdomen 10/02 Normal bowel gas pattern. CT abd/pelvis 10/03: No evidence of bowel obstruction or ileus. Clinically no evidence of PEG tube malfunction dislodgment FEN/RENAL: Acute hypernatremia- resolved Monitor renal function, I/O's, electrolytes replacement per protocol. Free water 250ml Q8, ID: HCAP UTI Urine culture from 09/18 with providentia and Proteus. BC 10/01: NGTD sputum cx 09/28 and 10/03 : No growth On abx Cefepime and Vanco, d/c Vanco, monitor for signs of infections ( Fever, WBC) C-diff PCR negative on 10/01 HEME: R brachial DVT Anemia Lovenox 60 mg subcu every 12 hours. s/p Transfuse 2u PRBC 10/01 GI is following for EGD/Colonoscopy today ENDO: Diabetes mellitus Insulin sliding scale PROPH: SCD/Lovenox for DVT prophylaxis. Protonix 40mg Q12 for stress ulcer prophylaxis. 10/01 Doppler US UE b/l: Superficial venous thrombosis identified in the right cephalic vein. No evidence of DVT. 09/21 Doppler US RUE: Occlusive thrombus cephalic and brachial veins ACCESS: PIV x2. Full code Level 3 follow-up Okay to transfer to LT[facility] when bed available
--- NOTE | 2018-10-08 12:10 | P.PNGI ---
Subjective Interval history: Patient is awake and alert, daughter at bedside Opens eyes to tactile stimuli PEG tube was loose, GI team was there to tighten Cleansed with alcohol around the stoma Nursing to apply dressing over the bumper of the PEG tube <Patricia Molina - Last Filed: 10/08/18 11:56> Physical Exam Vital signs: Vital Signs 10/07/18 12:00 10/07/18 12:59 10/07/18 13:00 Temperature 100.6 F H Pulse Rate 97 H 109 H 108 H Respiratory Rate 14 18 18 Blood Pressure 132/60 137/63 Pulse Oximetry 99 98 98 10/07/18 14:00 10/07/18 15:00 10/07/18 16:00 Temperature 99.7 F H Pulse Rate 92 H 90 104 H Respiratory Rate 16 16 35 H Blood Pressure 129/60 117/56 L 151/66 H Pulse Oximetry 100 97 88 L 10/07/18 17:00 10/07/18 17:01 10/07/18 18:00 Temperature 98.0 F Pulse Rate 99 H 98 H 105 H Respiratory Rate 38 H 16 34 H Blood Pressure 142/64 H 153/67 H Pulse Oximetry 100 100 99 10/07/18 19:00 10/07/18 20:00 10/07/18 20:20 Temperature 99.2 F Pulse Rate 101 H 84 Respiratory Rate 24 16 16 Blood Pressure 154/67 H 146/66 H Pulse Oximetry 100 100 100 10/07/18 20:24 10/07/18 21:00 10/07/18 22:00 Temperature Pulse Rate 83 98 H 101 H Respiratory Rate 16 16 16 Blood Pressure 151/68 H 142/65 H Pulse Oximetry 100 100 10/07/18 23:00 10/07/18 23:22 10/08/18 00:00 Temperature Pulse Rate 90 113 H Respiratory Rate 16 17 34 H Blood Pressure 150/67 H 150/68 H Pulse Oximetry 100 100 100 10/08/18 01:00 10/08/18 02:00 10/08/18 03:00 Temperature Pulse Rate 115 H 98 H 108 H Respiratory Rate 29 H 15 27 H Blood Pressure 157/69 H 125/66 148/67 H Pulse Oximetry 100 100 100 10/08/18 03:07 10/08/18 04:00 02/08/19 05:00 Temperature Pulse Rate 104 H 91 H Respiratory Rate 20 16 16 Blood Pressure 141/63 H 147/65 H Pulse Oximetry 100 100 100 10/08/18 06:00 10/08/18 07:16 10/08/18 11:00 Temperature Pulse Rate 97 H 104 H 104 H Respiratory Rate 16 20 38 H Blood Pressure 145/66 H Pulse Oximetry 100 100 Intake & Output 10/07/18 10/08/18 10/08/18 18:59 06:59 18:59 Intake Total 1150 / 1150 100 / 100 350 / 350 Output Total 375 / 375 450 / 450 Balance 775 / 775 -350 / -350 350 / 350 Weight 58.1 kg Intake: IV 100 / 100 100 / 100 100 / 100 Maxipime Inj 1,000 MG In NS Inj 100 / 100 100 / 100 100 / 100 100 ML @ 200 mls/hr IV.SIG Q8H [facility] Rx#:[id number] Oral 0 / 0 Tube Feeding 300 / 300 0 / 0 Tube Irrigant 100 / 100 Water Bolus Amount 400 / 400 Free Water Amount 250 / 250 250 / 250 Output: Urine 450 / 450 Stool 0 / 0 Urine/Stool Mix 0 / 0 Urine Amount (Catheter) 375 / 375 Female External 100 / 100 Indwelling Urethral Catheter 275 / 275 Other: # Voids 1 # Incontinent Voids 1 Date of Last Bowel Movement 10/07/18 10/07/18 # Bowel Movements 2 0 # Incontinent Bowel Movements 0 - Constitutional no acute distress - Routine HEENT Exam Head: Present: normocephalic, atraumatic - Routine Neck Exam Present: supple - Routine Respiratory Exam Present: patient mechanically ventilated - Routine Cardiovascular Exam Present: RRR, S1, S2 - Routine Abdominal Exam Present: soft, normoactive bowel sounds. Absent: tenderness, distended Comments: PEG tube flushes with return, GI team tighten the tube as it was reported to be leaking overnight - Routine Extremities Exam Present: amputation Comments: AKA - Routine Skin Exam Present: dry, warm - Routine Neurological Exam Present: alert - Urinary Catheter Management Indwelling Temp Sensing Catheter Cath placed during this visit: yes, but has since been removed by the nurse Reason for continuing: Severe pressure ulcer/wound Insertion date: 09/18/18 Insertion time: 18:50 Removal date: 09/23/18 Removal time: 16:00 Female External Cath placed during this visit: no Reason for continuing: Severe pressure ulcer/wound Straight Cath placed during this visit: no Indwelling Urethral Catheter Cath placed during this visit: yes Reason for continuing: Severe pressure ulcer/wound Insertion date: 10/07/18 Insertion time: 10:00 <Patricia Molina - Last Filed: 10/08/18 11:56> Vital signs: Vital Signs 10/07/18 14:00 10/07/18 15:00 10/07/18 16:00 Temperature 99.7 F H Pulse Rate 92 H 90 104 H Respiratory Rate 16 16 35 H Blood Pressure 129/60 117/56 L 151/66 H Pulse Oximetry 100 97 88 L 10/07/18 17:00 10/07/18 17:01 10/07/18 18:00 Temperature 98.0 F Pulse Rate 99 H 98 H 105 H Respiratory Rate 38 H 16 34 H Blood Pressure 142/64 H 153/67 H Pulse Oximetry 100 100 99 10/07/18 19:00 10/07/18 20:00 10/07/18 20:20 Temperature 99.2 F Pulse Rate 101 H 84 Respiratory Rate 24 16 16 Blood Pressure 154/67 H 146/66 H Pulse Oximetry 100 100 100 10/07/18 20:24 10/07/18 21:00 10/07/18 22:00 Temperature Pulse Rate 83 98 H 101 H Respiratory Rate 16 16 16 Blood Pressure 151/68 H 142/65 H Pulse Oximetry 100 100 10/07/18 23:00 10/07/18 23:22 10/08/18 00:00 Temperature Pulse Rate 90 113 H Respiratory Rate 16 17 34 H Blood Pressure 150/67 H 150/68 H Pulse Oximetry 100 100 100 10/08/18 01:00 10/08/18 02:00 10/08/18 03:00 Temperature Pulse Rate 115 H 98 H 108 H Respiratory Rate 29 H 15 27 H Blood Pressure 157/69 H 125/66 148/67 H Pulse Oximetry 100 100 100 10/08/18 03:07 10/08/18 04:00 10/08/18 05:00 Temperature Pulse Rate 104 H 91 H Respiratory Rate 20 16 16 Blood Pressure 141/63 H 147/65 H Pulse Oximetry 100 100 100 10/08/18 06:00 10/08/18 07:16 10/08/18 11:00 Temperature Pulse Rate 97 H 104 H 104 H Respiratory Rate 16 20 38 H Blood Pressure 145/66 H Pulse Oximetry 100 100 10/08/18 11:59 Temperature Pulse Rate Respiratory Rate 19 Blood Pressure Pulse Oximetry 100 Intake & Output 10/07/18 10/08/18 10/08/18 18:59 06:59 18:59 Intake Total 1150 / 1150 100 / 100 350 / 350 Output Total 375 / 375 450 / 450 Balance 775 / 775 -350 / -350 350 / 350 Weight 58.1 kg Intake: IV 100 / 100 100 / 100 100 / 100 Maxipime Inj 1,000 MG In NS Inj 100 / 100 100 / 100 100 / 100 100 ML @ 200 mls/hr IV.SIG Q8H [facility] Rx#:[id number] Oral 0 / 0 Tube Feeding 300 / 300 0 / 0 Tube Irrigant 100 / 100 Water Bolus Amount 400 / 400 Free Water Amount 250 / 250 250 / 250 Output: Urine 450 / 450 Stool 0 / 0 Urine/Stool Mix 0 / 0 Urine Amount (Catheter) 375 / 375 Female External 100 / 100 Indwelling Urethral Catheter 275 / 275 Other: # Voids 1 # Incontinent Voids 1 Date of Last Bowel Movement 10/07/18 10/07/18 # Bowel Movements 2 0 # Incontinent Bowel Movements 0 - Urinary Catheter Management Indwelling Temp Sensing Catheter Cath placed during this visit: no Female External Cath placed during this visit: no Straight Cath placed during this visit: no Indwelling Urethral Catheter Cath placed during this visit: no <Jaron Cooper - Last Filed: 10/08/18 13:01> Results - Labs CBC & Chem 7: 10/08/18 05:29 10/08/18 05:29 Laboratory Results - last 24 hr 10/07/18 10/07/18 10/07/18 12:57 18:44 23:31 WBC RBC Hgb Hct MCV MCH MCHC RDW Plt Count MPV Neut % (Auto) Lymph % (Auto) [place] % (Auto) Eos % (Auto) Baso % (Auto) Neut # (Auto) Lymph # (Auto) [place] # (Auto) Eos # (Auto) Baso # (Auto) WBC Differential Differential Comment Sodium Potassium Chloride Carbon Dioxide Anion Gap BUN Creatinine Estimated GFR POC Glucose 129 H 104 85 Random Glucose Calcium 10/08/18 10/08/18 10/08/18 05:11 05:29 05:29 WBC 5.8 RBC 3.60 L Hgb 9.2 L Hct 28.7 L MCV 79.6 L MCH 25.6 L MCHC 32.1 RDW 20.8 H Plt Count 254 MPV 8.7 Neut % (Auto) 67.1 Lymph % (Auto) 17.8 [place] % (Auto) 6.2 Eos % (Auto) 8.5 H Baso % (Auto) 0.4 Neut # (Auto) 3.9 Lymph # (Auto) 1.0 [place] # (Auto) 0.4 Eos # (Auto) 0.5 H Baso # (Auto) 0.0 WBC Differential . Differential Comment Auto diff final Sodium 142 Potassium 3.4 L Chloride 109 H Carbon Dioxide 25.0 Anion Gap 8 BUN 7 Creatinine 0.48 L Estimated GFR Greater than 89 POC Glucose 78 Random Glucose 75 Calcium 8.6 10/08/18 11:43 WBC RBC Hgb Hct MCV MCH MCHC RDW Plt Count MPV Neut % (Auto) Lymph % (Auto) [place] % (Auto) Eos % (Auto) Baso % (Auto) Neut # (Auto) Lymph # (Auto) [place] # (Auto) Eos # (Auto) Baso # (Auto) WBC Differential Differential Comment Sodium Potassium Chloride Carbon Dioxide Anion Gap BUN Creatinine Estimated GFR POC Glucose 96 Random Glucose Calcium - Imaging Impressions Abdomen X-Ray 10/08/18 09:15 CONCLUSION: No acute findings <Patricia Molina - Last Filed: 10/08/18 11:56> - Labs CBC & Chem 7: 10/08/18 05:29 10/08/18 05:29 Laboratory Results - last 24 hr 10/07/18 10/07/18 10/08/18 18:44 23:31 05:11 WBC RBC Hgb Hct MCV MCH MCHC RDW Plt Count MPV Neut % (Auto) Lymph % (Auto) [place] % (Auto) Eos % (Auto) Baso % (Auto) Neut # (Auto) Lymph # (Auto) [place] # (Auto) Eos # (Auto) Baso # (Auto) WBC Differential Differential Comment Sodium Potassium Chloride Carbon Dioxide Anion Gap BUN Creatinine Estimated GFR POC Glucose 104 85 78 Random Glucose Calcium 10/08/18 10/08/18 10/08/18 05:29 05:29 11:43 WBC 5.8 RBC 3.60 L Hgb 9.2 L Hct 28.7 L MCV 79.6 L MCH 25.6 L MCHC 32.1 RDW 20.8 H Plt Count 254 MPV 8.7 Neut % (Auto) 67.1 Lymph % (Auto) 17.8 [place] % (Auto) 6.2 Eos % (Auto) 8.5 H Baso % (Auto) 0.4 Neut # (Auto) 3.9 Lymph # (Auto) 1.0 [place] # (Auto) 0.4 Eos # (Auto) 0.5 H Baso # (Auto) 0.0 WBC Differential . Differential Comment Auto diff final Sodium 142 Potassium 3.4 L Chloride 109 H Carbon Dioxide 25.0 Anion Gap 8 BUN 7 Creatinine 0.48 L Estimated GFR Greater than 89 POC Glucose 96 Random Glucose 75 Calcium 8.6 - Imaging Impressions Abdomen X-Ray 10/08/18 09:15 CONCLUSION: No acute findings <Jaron Cooper - Last Filed: 10/08/18 13:01> Assessment and Plan (1) Anemia Status: Acute Code(s): D64.9 - Anemia, unspecified (2) Respiratory failure Status: Acute Code(s): J96.90 - Respiratory failure, unspecified, unspecified whether with hypoxia or hypercapnia (3) PEG (percutaneous endoscopic gastrostomy) adjustment/replacement/removal Status: Acute Code(s): Z43.1 - Encounter for attention to gastrostomy (4) Leaking PEG tube Status: Acute Code(s): K94.23 - Gastrostomy malfunction - Plan This patient is a 68-year-old female with past medical history significant for CVA, left AKA, acute respiratory failure, diabetes, dysphagia, hypertension, hemiparesis, hemiplegia and hypoxia. Surgical history significant for PEG tube placement, tracheostomy and left above-knee amputation. Patient presented to [facility] emergency room via EMS for reported hypoxemia. Of note, patient was on home hospice prior to arrival. Upon arrival, patient was intubated by ER attending for protection of airway. Our service has been consulted to evaluate patient for worsening anemia requiring blood transfusion. Patient is currently being cared for in the critical care setting post tracheostomy placement, patient mechanically ventilated. Temperature 101.5 this a.m. sinus tach on public health social worker. Patient presently having loose watery stools, dignity shield applied with noted liquid brown stool present. ICU nurse reports no obvious noted bleeding. Hemoglobin 6.7 hematocrit 23.9. Patient currently receiving 1st of 2 units of packed RBCs for transfusion. Upon exam, estimated 5 x 5 cm hematoma to the left lower quadrant of abdomen. Left upper extremity phlebitis noted. Patient currently receiving Lovenox 60 mg subcutaneously every 12 hours. Anemia-requiring blood transfusion- Microcytic anemia olivialey chronic 68-year-old female admitted to [facility] for hypoxemia mental status changes. Patient intubated upon arrival. Our service has been consulted for worsening anemia now requiring blood transfusion of 2 units packed RBCs. There have been no obvious signs of bleeding reported. Patient presently trach and ventilated FiO2 35%. PEG tube with Glucerna at 60 mL's per hour. Abdomen soft with bowel sounds present, ~5 x 5 cm hematoma left lower quadrant. Patient currently receiving Lovenox 60 mg subcutaneous every 12 hours. -Hemoglobin 6.7 hematocrit 23.9 WBC 11.7 platelet count 242 -Total bilirubin 0.3 AST 18 ALT 25 alk phos 103 10/02/2018 Patient awake and alert Nonverbal Mechanically ventilated via trach-on no sedation No reported or active bleeding noted-hemoglobin 9.7 hematocrit 30.9 from 10.3 and 32.7 Slight rising BUN with stable creatinine may be indicative of upper GI bleeding possible dilated specimen value 6.7 on 10/01/2018 Dignity shield noted liquid brown stool present KUB: Persistent airspace consolidation involving the right lower lobe. Abdominal bowel gas pattern is normal. Nurse reports no PEG tube feeding residuals 10/03/2018 Patient resting soundly with eyes closed Mechanically ventilated via trach on no sedation No reported bleeding 8.8 hemoglobin 9.5 hematocrit 30.4 No enteric pathogens or WBCs noted on final report for stool studies Plan -Hold tube feedings after midnight 10/04/2018 -Monitor for active bleeding -Plan of care per critical care medicine -Monitor hemoglobin and hematocrit closely -Transfuse as needed -Pantoprazole 40 mg IV every 12 -Palliative following -Stool studies pending-Cryptosporidium and Giardia -Obtain consent for EGD and colonoscopy (planning for 10/04/2018) -GoLYTELY prep (10/03/2018 @ 1600) -Supportive care -Further recommendations to follow 10/05/2018 Patient remains intubated Status post EGD colonoscopy 10/04/2018-findings of chronic gastritis no distinct source of bleeding identified on upper or lower endoscopy Assessment Chronic anemia Acute respiratory failure Hemoglobin 8.7 hematocrit 28 platelet 255 INR 1 CMP is pending Stool studies were all negative for C. difficile, WBCs stool, enteric pathogens PCR, leptospiral odium antigen, and Giardia antigen. 10/07/2018 Nausea vomiting Patient evaluated due to reported nausea and vomiting tube feeding this a.m. ICU nurse reports 40 mL residual gastric content mucoid, scant amount of possible tube feeding around PEG tube site No noted bleeding Abdomen mildly distended with bowel sounds present 10/08/2018 Assessment -patient's PEG tube was leaking overnight per ICU nurse, adjustment was done by the GI team, PEG tube was patent on aspiration with residual. Can resume tube feeding at 30 cc an hour. Monitor for leakage. Plan -Resume tube feedings 30 cc an hour then as ordered -Flush and PEG tube care per protocol -Check for residual -Notify GI team if leakage will continue -Please apply dressing over the bumper of the PEG tube -Apply a pillow between patient's left arm and the device to avoid pulling PEG -Monitor for active bleeding -Monitor labs -Continue PPI -Supportive care -Further recommendations to follow This patient has been seen by myself and Dr. Cooper and this note is written on his behalf - Attending Attestation Dr. Cooper <Patricia Molina - Last Filed: 10/08/18 11:56> (1) Anemia Status: Acute Code(s): D64.9 - Anemia, unspecified (2) Respiratory failure Status: Acute Code(s): J96.90 - Respiratory failure, unspecified, unspecified whether with hypoxia or hypercapnia (3) PEG (percutaneous endoscopic gastrostomy) adjustment/replacement/removal Status: Acute Code(s): Z43.1 - Encounter for attention to gastrostomy (4) Leaking PEG tube Status: Acute Code(s): K94.23 - Gastrostomy malfunction - Attending Attestation I have seen and examined the patient and reviewed the relevant portions of the chart and discussed the patient's current complaints, results and findings with the HUMAN RESOURCES OFFICER. We have reviewed the therapeutic plan for the patient. I agree with the above assessment and recommendations as documented above. If the PEG tube continues to be problematic in terms of leakage it can be replaced with a larger , 24 [place], PEG tube. Please notify us if this continues to be an issue. <Jaron Cooper - Last Filed: 10/08/18 13:01>
[2018-10-08] MEDS: Potassium Chloride Liq 20 MEQ/15 ML UDC PO PRN (17:57)
--- NOTE | 2018-10-08 18:25 | P.PNPL ---
Subjective Interval history: 68 YOAA female who was with Hospice svc, now rescended off sedation Tolerates TF Awake, does't follow command Tolerated CPAP 4 hrs Physical Exam Vital signs: Vital Signs 10/07/18 19:00 10/07/18 20:00 10/07/18 20:20 Temperature 99.2 F Pulse Rate 101 H 84 Respiratory Rate 24 16 16 Blood Pressure 154/67 H 146/66 H Pulse Oximetry 100 100 100 10/07/18 20:24 10/07/18 21:00 10/07/18 22:00 Temperature Pulse Rate 83 98 H 101 H Respiratory Rate 16 16 16 Blood Pressure 151/68 H 142/65 H Pulse Oximetry 100 100 10/07/18 23:00 10/07/18 23:22 10/08/18 00:00 Temperature Pulse Rate 90 113 H Respiratory Rate 16 17 34 H Blood Pressure 150/67 H 150/68 H Pulse Oximetry 100 100 100 10/08/18 01:00 10/08/18 02:00 10/08/18 03:00 Temperature Pulse Rate 115 H 98 H 108 H Respiratory Rate 29 H 15 27 H Blood Pressure 157/69 H 125/66 148/67 H Pulse Oximetry 100 100 100 10/08/18 03:07 10/08/18 04:00 10/08/18 05:00 Temperature Pulse Rate 104 H 91 H Respiratory Rate 20 16 16 Blood Pressure 141/63 H 147/65 H Pulse Oximetry 100 100 100 10/08/18 06:00 10/08/18 07:00 10/08/18 07:16 Temperature Pulse Rate 97 H 104 H 104 H Respiratory Rate 16 16 20 Blood Pressure 145/66 H 136/63 Pulse Oximetry 100 100 100 10/08/18 08:00 10/08/18 08:03 10/08/18 09:00 Temperature 99 F Pulse Rate 103 H 105 H 95 H Respiratory Rate 31 H 33 H 25 H Blood Pressure 94/47 L Pulse Oximetry 99 98 100 10/08/18 09:18 10/08/18 10:00 10/08/18 11:00 Temperature Pulse Rate 94 H 100 H 102 H Respiratory Rate 22 38 H 40 H Blood Pressure 96/56 L 90/60 L 92/60 L Pulse Oximetry 100 100 100 10/08/18 11:59 10/08/18 12:00 10/08/18 13:00 Temperature 99.1 F Pulse Rate 105 H 97 H Respiratory Rate 19 23 16 Blood Pressure 85/56 L 86/50 L Pulse Oximetry 100 100 99 10/08/18 14:00 10/08/18 15:00 10/08/18 16:00 Temperature 99.2 F Pulse Rate 104 H 104 H 107 H Respiratory Rate 32 H 33 H 40 H Blood Pressure 95/51 L 91/55 L 95/52 L Pulse Oximetry 99 99 99 10/08/18 18:00 Temperature Pulse Rate 104 H Respiratory Rate Blood Pressure Pulse Oximetry Intake & Output 10/07/18 10/08/18 10/08/18 18:59 06:59 18:59 Intake Total 1150 / 1150 100 / 100 1430 / 1430 Output Total 375 / 375 450 / 450 300 / 300 Balance 775 / 775 -350 / -350 1130 / 1130 Weight 58.1 kg Intake: IV 100 / 100 100 / 100 200 / 200 Maxipime Inj 1,000 MG In NS Inj 100 / 100 100 / 100 200 / 200 100 ML @ 200 mls/hr IV.SIG Q8H [facility] Rx#:[id number] Oral 0 / 0 Tube Feeding 300 / 300 0 / 0 200 / 200 Tube Irrigant 100 / 100 30 / 30 Water Bolus Amount 400 / 400 500 / 500 Free Water Amount 250 / 250 500 / 500 Output: Urine 450 / 450 Stool 0 / 0 Urine/Stool Mix 0 / 0 Urine Amount (Catheter) 375 / 375 300 / 300 Female External 100 / 100 Indwelling Urethral Catheter 275 / 275 300 / 300 Other: # Voids 1 # Incontinent Voids 1 Date of Last Bowel Movement 10/07/18 10/07/18 10/07/18 # Bowel Movements 2 0 # Incontinent Bowel Movements 0 GENERAL: Elderly Female, on Vent SKIN: Warm and dry. HEAD: Normocephalic. EYES: No scleral icterus. No injection or drainage. NECK: Supple, trachea midline. No JVD or lymphadenopathy. Trach CARDIOVASCULAR: Regular rate and rhythm without murmurs, gallops, or rubs. RESPIRATORY: Breath sounds equal bilaterally. No accessory muscle use. GASTROINTESTINAL: Abdomen soft, non-tender, nondistended. MUSCULOSKELETAL: No cyanosis, or edema. BACK: Nontender without obvious deformity. No CVA tenderness. - Urinary Catheter Management Indwelling Temp Sensing Catheter Cath placed during this visit: yes, but has since been removed by the nurse Reason for continuing: Severe pressure ulcer/wound Insertion date: 09/18/18 Insertion time: 18:50 Removal date: 09/23/18 Removal time: 16:00 Female External Cath placed during this visit: no Reason for continuing: Severe pressure ulcer/wound Straight Cath placed during this visit: no Indwelling Urethral Catheter Cath placed during this visit: yes Reason for continuing: Severe pressure ulcer/wound Insertion date: 10/07/18 Insertion time: 10:00 Assessment and Plan - Plan IMPRESSION: VDRF large Rt lung mass COPD HTN H/O CVA PLAN: Cont vent support [id number]-16 CPAP trial daily Aerosol nebs Cont Abx Trach care. Tube feeding DC plans for [facility].
[2018-10-09] MEDS: Pantoprazole Inj 40 MG Vial IV.PUSH SCH ×3 (00:19→23:01)
[2018-10-09] MEDS: Oral Hygiene Kit OROPHARYNG SCH ×4 (03:38→23:01)
[2018-10-09] MEDS: dilTIAZem 30 MG Tablet PO SCH ×5 (03:38→22:57)
[2018-10-09] MEDS: Insulin NovoLIN Regular Correctional Sugar Inj SQ SCH ×4 (05:09→23:01)
[2018-10-09 06:32] LABS: Baso # (Auto) 0.1 th/mm3 (0.0-0.2); Baso % (Auto) 1.3 % (0.0-2.0); Eos % (Auto) 12.6 % (0.0-4.0); Hematocrit 29.8 % (35.0-46.0); Hemoglobin 9.5 gm/dL (11.6-15.3); Lymph # (Auto) 1.2 th/mm3 (1.0-4.8); Lymph % (Auto) 14.4 % (9.0-44.0); Mean Corpuscular Hemoglobin 25.6 pg (27.0-34.0); Mean Platelet Volume 9.2 fL (7.0-11.0); Mono # (Auto) 0.6 th/mm3 (0.0-0.9); Mono % (Auto) 7.8 % (0.0-8.0); Neut # (Auto) 5.3 th/mm3 (1.8-7.7); Neut % (Auto) 63.9 % (16.0-70.0); Platelet Count 303 th/mm3 (150-450); Red Blood Count 3.72 mil/mm3 (4.00-5.30); Red Cell Distribution Width 20.9 % (11.6-17.2); White Blood Count 8.3 th/mm3 (4.0-11.0)
[2018-10-09 07:08] LABS: Alanine Aminotransferase 16 U/L (10-53); Albumin 2.2 g/dL (3.4-5.0); Alkaline Phosphatase 89 U/L (45-117); Anion Gap 8 meq/L (5-15); Aspartate Aminotransferase 15 U/L (15-37); Blood Urea Nitrogen 7 mg/dL (7-18); Calcium 8.7 mg/dL (8.5-10.1); Carbon Dioxide 23.1 meq/L (21.0-32.0); Chloride 111 meq/L (98-107); Glomerular Filtration Rate Greater Than 89 mL/min (>89); Glucose,Random 104 mg/dL (74-106); Potassium 4.2 meq/L (3.5-5.1); Sodium 142 meq/L (136-145); Total Protein 7.5 g/dL (6.4-8.2)
[2018-10-09 08:34] LABS: Platelet Estimate Normal (Normal)
[2018-10-09] MEDS: Enoxaparin Inj 60 MG/0.6 ML Syringe SQ SCH ×2 (08:53→20:10)
[2018-10-09] MEDS: Chlorhexidine 0.12% Oral Kit 15 ML UDC OROPHARYNG SCH ×2 (08:54→20:10)
[2018-10-09] MEDS: Senna/Docusate Sodium 8.6/50 MG Tablet PO SCH ×2 (08:54→20:11)
--- NOTE | 2018-10-09 13:25 | P.PNCC ---
Subjective Subjective Remarks/Hospital Course: 09/18: 68-year-old female past medical history of stroke, left BKA, who was on home hospice until just prior to arrival, presents for an evaluation of fever and altered mental status. According to EMS the patient had not required oxygen until beginning of this week when she had gradual increased demand of her oxygen. End-tidal CO2 prior to arrival was 6. Initial room nasal cannula saturation was 91, she was placed on nonrebreather position of comfort and transfer to emergency department. EMS related that the had elected to revoke the patient's DNR and hospice care prior to transferring her to the hospital. The patient apparently is normally a GCS of 14, apparently she does take some thickened food p.o. department the patient was severely altered with GCS of 6 on arrival [id number] and was intubated by ED attending for an airway protection. 09/19: Remains sedated, orally intubated on mechanical ventilation. CT chest showed right lower lobe lung mass suspicious for malignancy. Patient has a PEG tube following previous stroke. 09/20: Remains sedated, orally intubated on mechanical ventilation. Started on tube feeds. 09/21: Remains sedated, orally intubated on mechanical ventilation. Tolerating tube feeds. Right approximately swelling noted. 09/22 Is not tolerating CPAP trial when decrease PS below 18. Daughter at bedside, says will be here later. Says they don't think they want to proceed with lung biopsy at this time, but on the other hand she discusses the possibility of re-do trach. She says they are not sure how to proceed. I suggested we meet together. Daughter states she has been bedridden since stroke about 4 years ago. Has been in detention. PEG due to dysphagia, does not eat. Speaks a little but daughter states she has declined significantly over the last 2 weeks. 09/23 No significant change. Patient does not tolerate CPAP. Family is very clear that they do not wish to pursue biopsy or diagnosis of suspected lung cancer. At this time, they wish to continue supportive care with vent and FULL CODE. 09/24 No change. Does not tolerate CPAP. Will diurese for positive fluid balance. 09/25 Now on CPAP 20/5 and not tolerating wean. Continue attempts at diuresis to address positive fluid balance since admission 09/26: Remains sedated, orally intubated on mechanical ventilation. Hold CPAP trials yesterday 09/27 Patient is sedated with Diprivan and intubated. Tolerating tube feeds. Afebrile. 09/28 Patient remains intubated and sedated. T;100.8 09/29 Has not made any progress towards weaning. Family offered comfort measures however they expressed desire to proceed with trach Subjective: 09/30 status post bedside tracheostomy yesterday by Dr. Gavin. Discontinued propofol drip. On CPAP 11/01 for 2 hours today. BP is low, will need to hold metoprolol and titrate back on cardizem (nurses held some doses yesterday too). Positive fluid balance but not able to diurese today due to low BP. Awaiting bed at [facility]. 10/01 Patient remains on ventilator via trach. On no sedation. Hgb 6.7 this morning and T: 100.4 at midnight. Tachycardic. 10/02 Patient is on ventilator via trach. On no sedation. Spiked fever with T: 101.5. s/p transfusion 2u PRBC yesterday. Mcmillan/thick secretions noted per nursing staff. 10/03 Patient had low grade fever with T:100.4 last night. Tube feeds held for abd distention. KUB yesterday showed normal bowel gas pattern. 10/04 Patient is on ventilator via trach. For panendoscopy today. T:99.8 last night. 10/05 Patient is on ventilator via trach, on no drips. s/p panendoscopy yesterday showed chronic gastritis with no source of bleeding identified on upper or lower endoscopy. Afebrile. 10/06 Patient remains on ventilator via trach. T:99.9 yesterday 10/07: Remains on the vent continues to fail CPAP trials due to tachypnea. No nausea vomiting overnight currently resolved. Chest tube had been restarted. Low-grade fever 100.6 10/08: Continues to fail CPAP trials. However on vent support appears comfortable. Daughter at the bedside updated. No fever today 10/09: No acute changes overnight. The patient continues to fail CPAP. Patient tolerating tube feeds. Objective Vital Signs / I&O: Vital Signs 10/08/18 14:00 10/08/18 15:00 10/08/18 16:00 Temperature 99.2 F Pulse Rate 104 H 104 H 107 H Respiratory Rate 32 H 33 H 40 H Blood Pressure 95/51 L 91/55 L 95/52 L Pulse Oximetry 99 99 99 10/08/18 17:00 10/08/18 18:00 10/08/18 19:00 Temperature Pulse Rate 102 H 104 H 104 H Respiratory Rate 24 32 H 25 H Blood Pressure 89/50 L 92/53 L 91/52 L Pulse Oximetry 100 99 100 10/08/18 19:28 10/08/18 20:00 10/08/18 20:38 Temperature 99.5 F Pulse Rate 107 H 108 H Respiratory Rate 28 H 44 H 24 Blood Pressure 145/68 H 151/70 H Pulse Oximetry 100 100 100 10/08/18 21:00 10/08/18 21:37 10/08/18 22:00 Temperature Pulse Rate 108 H 109 H 109 H Respiratory Rate 41 H 16 22 Blood Pressure 149/67 H 147/65 H 140/63 Pulse Oximetry 100 100 99 10/08/18 23:00 10/08/18 23:54 10/09/18 00:00 Temperature 100.0 F H Pulse Rate 107 H 109 H Respiratory Rate 34 H 20 42 H Blood Pressure 141/64 H 150/69 H Pulse Oximetry 100 100 99 10/09/18 01:00 10/09/18 02:00 10/09/18 03:00 Temperature Pulse Rate 110 H 109 H 110 H Respiratory Rate 40 H 27 H 44 H Blood Pressure 151/69 H 144/67 H Pulse Oximetry 99 99 100 10/09/18 03:04 10/09/18 04:00 10/09/18 04:20 Temperature 99.0 F Pulse Rate 112 H 105 H Respiratory Rate 46 H 45 H 17 Blood Pressure 137/71 154/68 H Pulse Oximetry 99 96 99 10/09/18 05:36 10/09/18 08:00 10/09/18 11:07 Temperature Pulse Rate 105 H 111 H Respiratory Rate 18 21 Blood Pressure Pulse Oximetry 100 10/09/18 11:08 Temperature Pulse Rate Respiratory Rate 21 Blood Pressure Pulse Oximetry 100 Intake & Output 10/08/18 10/09/18 10/09/18 18:59 06:59 18:59 Intake Total 1430 / 1430 1242 / 1242 250 / 250 Output Total 300 / 300 825 / 825 Balance 1130 / 1130 417 / 417 250 / 250 Weight 58.1 kg Intake: IV 200 / 200 200 / 200 Maxipime Inj 1,000 MG In NS Inj 200 / 200 200 / 200 100 ML @ 200 mls/hr IV.SIG Q8H [facility] Rx#:[id number] Oral 0 / 0 Tube Feeding 200 / 200 542 / 542 Tube Irrigant 30 / 30 Water Bolus Amount 500 / 500 250 / 250 Free Water Amount 500 / 500 250 / 250 250 / 250 Output: Stool 0 / 0 Urine/Stool Mix 0 / 0 Urine Amount (Catheter) 300 / 300 825 / 825 Indwelling Urethral Catheter 300 / 300 825 / 825 Other: Date of Last Bowel Movement 10/07/18 10/09/18 # Bowel Movements 1 # Incontinent Bowel Movements 1 Result Diagrams: 10/09/18 04:36 10/09/18 04:36 Other Results: Laboratory Results WBC 8.3 th/mm3 (4.0-11.0) 10/09/18 04:36 RBC 3.72 mil/mm3 (4.00-5.30) L 10/09/18 04:36 Hgb 9.5 gm/dL (11.6-15.3) L 10/09/18 04:36 Hct 29.8 % (35.0-46.0) L 10/09/18 04:36 MCV 80.0 fL (80.0-100.0) 10/09/18 04:36 MCH 25.6 pg (27.0-34.0) L 10/09/18 04:36 MCHC 32.0 % (32.0-36.0) 10/09/18 04:36 RDW 20.9 % (11.6-17.2) H 10/09/18 04:36 Plt Count 303 th/mm3 (150-450) 10/09/18 04:36 MPV 9.2 fL (7.0-11.0) 10/09/18 04:36 Prelim Diff (Auto) Slide review pending 10/09/18 04:36 Neut % (Auto) 63.9 % (16.0-70.0) 10/09/18 04:36 Lymph % (Auto) 14.4 % (9.0-44.0) 10/09/18 04:36 [place] % (Auto) 7.8 % (0.0-8.0) 10/09/18 04:36 Eos % (Auto) 12.6 % (0.0-4.0) H 10/09/18 04:36 Baso % (Auto) 1.3 % (0.0-2.0) 10/09/18 04:36 Neut # (Auto) 5.3 th/mm3 (1.8-7.7) 10/09/18 04:36 Lymph # (Auto) 1.2 th/mm3 (1.0-4.8) 10/09/18 04:36 [place] # (Auto) 0.6 th/mm3 (0.0-0.9) 10/09/18 04:36 Eos # (Auto) 1.0 th/mm3 (0.0-0.4) H 10/09/18 04:36 Baso # (Auto) 0.1 th/mm3 (0.0-0.2) 10/09/18 04:36 WBC Differential . 10/09/18 04:36 Diff Scan Auto diff confirmed 10/09/18 04:36 Seg Neuts % (Manual) 83 % (16-70) H 09/29/18 03:24 Band Neuts % (Manual) 3 % (0-6) 09/29/18 03:24 Lymphocytes % (Manual) 7 % (9-44) L 09/29/18 03:24 Monocytes % (Manual) 4 % (0-8) 09/29/18 03:24 Eosinophils % (Manual) 3 % (0-4) 09/29/18 03:24 Abs Neuts (Manual) 13.3 th/mm3 (1.8-7.7) H 09/29/18 03:24 Differential Comment . 10/09/18 04:36 Toxic Vacuolation Present (None) H 09/29/18 03:24 Platelet Estimate Normal (Normal) 10/09/18 04:36 Platelet Morphology Enlarged (Normal) H 10/09/18 04:36 Tear Drop Cells 1+ (None) H 09/23/18 06:13 Ovalocytes 1+ (None) H 10/01/18 04:15 PT 10.2 sec (9.8-11.6) 09/19/18 04:06 INR 1.0 Ratio 09/19/18 04:06 APTT 21.7 sec (23.4-31.7) L 09/19/18 04:06 Puncture Site Left radial 09/19/18 11:07 Patient Temperature 98.6 09/19/18 11:07 O2 Saturation 96 % (90-100) 09/19/18 11:07 ABG pH 7.51 (7.380-7.420) H* 09/19/18 11:07 ABG pCO2 29 mmHg (38-42) L 09/19/18 11:07 ABG pO2 134 mmHG (61-120) H 09/19/18 11:07 ABG HCO3 22 mmol/L (22-26) 09/19/18 11:07 ABG O2 Content 11.7 Vol % (12.0-20.0) L 09/19/18 11:07 ABG Base Excess -0.3 mmol/L (-2-2) 09/19/18 11:07 ABG Methemoglobin 1.7 % (0-2) 09/19/18 11:07 Vasiliy Test Present 09/19/18 11:07 Hemoglobin 8.4 G/DL (12.0-16.0) L 09/19/18 11:07 Carboxyhemoglobin 1.1 % (0-4) 09/19/18 11:07 O2 Delivery Device Ventilator 09/19/18 11:07 Vent Setting Prvc20/500/1.0/+5 09/19/18 11:07 Inspired O2 35 % 09/19/18 11:07 Critical Value Yes 09/19/18 11:07 Sodium 142 meq/L (136-145) 10/09/18 04:36 Potassium 4.2 meq/L (3.5-5.1) D 10/09/18 04:36 Chloride 111 meq/L (98-107) H 10/09/18 04:36 Carbon Dioxide 23.1 meq/L (21.0-32.0) 10/09/18 04:36 Anion Gap 8 meq/L (5-15) 10/09/18 04:36 BUN 7 mg/dL (7-18) 10/09/18 04:36 Creatinine 0.57 mg/dL (0.50-1.00) 10/09/18 04:36 Estimated GFR Greater than 89 mL/min (>89) 10/09/18 04:36 POC Glucose 122 mg/dl (68-110) H 10/09/18 12:18 Random Glucose 104 mg/dL (74-106) 10/09/18 04:36 Lactic Acid 4.1 mmol/L (0.4-2.0) H* 09/19/18 04:06 Calcium 8.7 mg/dL (8.5-10.1) 10/09/18 04:36 Calcium Adj for Albumin 8.4 mg/dL (8.5-10.1) L 09/18/18 18:44 Phosphorus 2.6 mg/dL (2.5-4.9) 10/07/18 05:05 Magnesium 2.1 mg/dL (1.5-2.5) 10/07/18 05:05 Total Bilirubin 0.2 mg/dL (0.2-1.0) 10/09/18 04:36 AST 15 U/L (15-37) 10/09/18 04:36 ALT 16 U/L (10-53) 10/09/18 04:36 Alkaline Phosphatase 89 U/L (45-117) 10/09/18 04:36 Total Creatine Kinase 123 U/L (26-192) 09/21/18 11:26 Troponin I 0.12 ng/mL (0.02-0.05) H 09/18/18 18:44 Total Protein 7.5 g/dL (6.4-8.2) 10/09/18 04:36 Albumin 2.2 g/dL (3.4-5.0) L 10/09/18 04:36 Urine Color Yellow (Yellw/Straw) 10/01/18 14:20 Urine Clarity Hazy (Clear) H 10/01/18 14:20 Urine pH 5.0 (5.0-8.5) 10/01/18 14:20 Ur Specific [place] 1.024 (1.002-1.035) 10/01/18 14:20 Urine Protein 30 mg/dL (Neg-Trace) H 10/01/18 14:20 Urine Glucose (UA) Negative mg/dL (Negative) 10/01/18 14:20 Urine Ketones Negative mg/dL (Negative) 10/01/18 14:20 Urine Occult Blood Negative (Negative) 10/01/18 14:20 Urine Nitrate Negative (Negative) 10/01/18 14:20 Urine Bilirubin Negative (Negative) 10/01/18 14:20 Urine Urobilinogen Less than 2 mg/dL (Less than 2) 10/01/18 14:20 Ur Leukocyte Esterase Trace (Negative) H 10/01/18 14:20 Urine RBC Less than 1 /hpf (0-3) 09/28/18 15:30 Urine WBC 4 /hpf (0-5) 10/01/18 14:20 Urine WBC Clumps Many (None) H 09/18/18 18:35 Ur Squamous Epith Cells <1 /hpf (0-5) 10/01/18 14:20 Triple Phos Crystals Many /hpf (None) H 09/18/18 18:35 Urine Bacteria Moderate /hpf (None) H 09/18/18 18:35 Hyaline Casts 1 /lpf (0-3) 09/28/18 15:30 Granular Casts 1 /lpf (None) 10/01/18 14:20 Urine Mucus Few /lpf (Occasional) H 10/01/18 14:20 Micro UA Comment Culture indicated 09/28/18 15:30 Ur Microscopic Review Not Reportable 10/01/18 14:20 Urine Culture Comments Culture indicated 09/28/18 15:30 Nasal Screen MRSA (PCR) Not detected (Negative) 09/18/18 22:46 Stl C.difficile DNA Amp Negative (Negative) 10/01/18 16:10 St C. diff Tox Epid 027 Negative (Negative) 10/01/18 16:10 Vancomycin Trough 11.2 mcg/mL (5.0-10.0) H 10/05/18 11:49 Random Vancomycin 19.5 Comment 09/26/18 14:26 Blood Type B Positive 09/29/18 03:30 Blood Type Recheck Required 09/29/18 03:30 Antibody Screen Negative 09/29/18 03:30 MTS Gel Crossmatch See Detail 10/01/18 03:[address] 09/18/18 18:40 CONCLUSION: 1. Stable appearance of the brain. Marked ventriculomegaly and white matter disease. . Chest CTA 09/18/18 19:26 CONCLUSION: 1. There is no evidence for pulmonary embolism. 2. Severe emphysema. 3. There is a large soft tissue mass in the right lower lobe suspicious for malignancy until proven otherwise. Venous Doppler Study 10/01/18 00:00 CONCLUSION: 1. Superficial venous thrombosis identified in the right cephalic vein. 2. No evidence of DVT. Abdomen/Pelvis CT 10/03/18 07:26 CONCLUSION: 1. There is air and fluid identified within the stomach which may account for the patient's perceived distention. No evidence of bowel obstruction or ileus. 2. Extensive atherosclerosis. 3. Persistent right lower lobe airspace consolidation. Chest X-Ray 10/07/18 00:00 CONCLUSION: Stable chest x-ray with airspace opacity in the right lower lung zone. Abdomen X-Ray 10/08/18 09:15 CONCLUSION: No acute findings Objective Remarks: GENERAL: Well-nourished, well-developed patient female appearing older than stated age SKIN: Warm and dry. HEAD: Atraumatic. Normocephalic. EYES: Pupils equal and round. No scleral icterus. No injection or drainage. ENT: No nasal bleeding or discharge. Mucous membranes pink and moist. NECK: Tracheostomy in place, slight pink tinge to secretions, no active bleeding. CARDIOVASCULAR: S1S2 normal, No murmurs rubs or gallops. RESPIRATORY: Tracheostomy 8.0 Shiley on mechanical ventilation. B/L equal air entry GASTROINTESTINAL: Abdomen soft, non-tender,distended. PEG in place, MUSCULOSKELETAL: Extremities without clubbing, cyanosis, or edema. s/p L AKA. NEUROLOGICAL: Awakens, looks around. Blinks and squeezes hand to command Assessment and Plan - Assessment and Plan Plan: NEURO: History of stroke Off sedation. Monitor neuro status RESP: Acute respiratory failure on mechanical ventilation Emphysema Lung mass History of prior trach after stroke, has been subsequently decannulated Per Dr. De Jesus. not wishing to pursue CT-guided biopsy. Continue with vent support Daily CPAP trials. Vent bundle/nebs. Percutaneous tracheostomy performed at bedside 09/29. Pulm toilet, trach care CV: HTN Monitor BP/heart rate keep MAP>65mmHg. On Cardizem 30mg q6 with hold orders. GI: PEG in place. On Glucerna 1.5 @ 40ml/hr with goal rate 60ml/hr KUB abdomen 2/2 Normal bowel gas pattern. CT abd/pelvis 2/3: No evidence of bowel obstruction or ileus. Clinically no evidence of PEG tube malfunction dislodgment FEN/RENAL: Acute hypernatremia- resolved Monitor renal function, I/O's, electrolytes replacement per protocol. Free water 250ml Q8, ID: HCAP UTI Urine culture from 09/18 with providentia and Proteus. BC 10/01: NGTD sputum cx 09/28 and 10/03 : No growth On abx Cefepime and Vanco, d/c Vanco, monitor for signs of infections ( Fever, WBC) C-diff PCR negative on 10/01 HEME: R brachial DVT Anemia Lovenox 60 mg subcu every 12 hours. s/p Transfuse 2u PRBC 10/01 GI is following for EGD/Colonoscopy today ENDO: Diabetes mellitus Insulin sliding scale PROPH: SCD/Lovenox for DVT prophylaxis. Protonix 40mg Q12 for stress ulcer prophylaxis. 10/01 Doppler US UE b/l: Superficial venous thrombosis identified in the right cephalic vein. No evidence of DVT. 09/21 Doppler US RUE: Occlusive thrombus cephalic and brachial veins ACCESS: PIV x2. Full code Level 3 follow-up Planned transfer to LTAC when bed available Code Status: Full Discussed Condition With: CLOTH CUTTING INSPECTOR at bedside
[2018-10-10] MEDS ORDERED: Succinylcholine Inj 200 MG/10 ML Vial ONE (01:31)
[2018-10-10] MEDS ORDERED: Etomidate Inj 40 MG/20 ML Vial IV.PUSH ONE (01:31)
[2018-10-10] MEDS: Oral Hygiene Kit OROPHARYNG SCH ×4 (03:55→23:17)
[2018-10-10] MEDS: dilTIAZem 30 MG Tablet PO SCH ×4 (03:59→22:09)
--- NOTE | 2018-10-10 03:59 | XR ---
EXAM DATE: 10/10/2018 3:39 AM EST AGE/SEX: 68 years / Female INDICATIONS: Shortness of breath, possible pulmonary disease. CLINICAL DATA: This is the patient's subsequent encounter. Patient reports that signs and symptoms h ave been present for 2 weeks and indicates a pain score of Nonresponsive. MEDICAL/SURGICAL HISTORY: Hypertension. Diabetes. Cerebrovascular disease. . Tracheostomy. Am putation above left knee. PEG tube placement. COMPARISON: C, CHEST 1V SINGLE AP, 10/07/2018. . FINDINGS: Stable tracheostomy. Stable parenchymal opacity in the right mid to lower lung zones. Cardiomegaly me diastinal contours are within normal limits. Remainder of the exam is unchanged. CONCLUSION: 1. No significant interval change. 2. Stable parenchymal opacity in the right mid to lower lung zones. Electronically signed by: Delfin Gunderson MD Board Certified Radiologist 10/10/2018 3:57 AM EST
[2018-10-10] MEDS: Insulin NovoLIN Regular Correctional Sugar Inj SQ SCH ×4 (05:18→23:17)
[2018-10-10 06:34] LABS: Baso % (Auto) 0.6 % (0.0-2.0); Eos # (Auto) 0.7 th/mm3 (0.0-0.4); Eos % (Auto) 11.6 % (0.0-4.0); Hematocrit 29.6 % (35.0-46.0); Hemoglobin 9.4 gm/dL (11.6-15.3); Lymph # (Auto) 1.3 th/mm3 (1.0-4.8); Mean Corpuscular HGB Conc 31.9 % (32.0-36.0); Mean Corpuscular Hemoglobin 25.6 pg (27.0-34.0); Mean Corpuscular Volume 80.1 fL (80.0-100.0); Mono # (Auto) 0.5 th/mm3 (0.0-0.9); Mono % (Auto) 8.5 % (0.0-8.0); Neut # (Auto) 3.3 th/mm3 (1.8-7.7); Neut % (Auto) 56.3 % (16.0-70.0); Platelet Count 264 th/mm3 (150-450); Red Blood Count 3.69 mil/mm3 (4.00-5.30); Red Cell Distribution Width 20.9 % (11.6-17.2); White Blood Count 5.8 th/mm3 (4.0-11.0)
[2018-10-10 06:57] LABS: Anion Gap 5 meq/L (5-15); Blood Urea Nitrogen 10 mg/dL (7-18); Calcium 8.5 mg/dL (8.5-10.1); Carbon Dioxide 26.6 meq/L (21.0-32.0); Chloride 109 meq/L (98-107); Glomerular Filtration Rate Greater Than 89 mL/min (>89); Glucose,Random 93 mg/dL (74-106); Magnesium 2.2 mg/dL (1.5-2.5); Sodium 141 meq/L (136-145)
[2018-10-10 06:58] LABS: Phosphorus 2.2 mg/dL (2.5-4.9)
[2018-10-10] MEDS: Chlorhexidine 0.12% Oral Kit 15 ML UDC OROPHARYNG SCH ×2 (07:45→20:22)
[2018-10-10] MEDS: Enoxaparin Inj 60 MG/0.6 ML Syringe SQ SCH ×2 (08:31→20:22)
[2018-10-10] MEDS: Senna/Docusate Sodium 8.6/50 MG Tablet PO SCH ×2 (08:31→20:23)
[2018-10-10] MEDS: Sodium Glycerophosphate Inj 30 MMOL in Sodium Chlor 0.9% Inj 250 ML IV.SIG PRN (10:02)
--- NOTE | 2018-10-10 11:36 | P.PNCC ---
Subjective Subjective Remarks/Hospital Course: 09/18: 68-year-old female past medical history of stroke, left BKA, who was on home hospice until just prior to arrival, presents for an evaluation of fever and altered mental status. According to EMS the patient had not required oxygen until beginning of this week when she had gradual increased demand of her oxygen. End-tidal CO2 prior to arrival was 6. Initial room nasal cannula saturation was 91, she was placed on nonrebreather position of comfort and transfer to emergency department. EMS related that the had elected to revoke the patient's DNR and hospice care prior to transferring her to the hospital. The patient apparently is normally a GCS of 14, apparently she does take some thickened food p.o. department the patient was severely altered with GCS of 6 on arrival [id number] and was intubated by ED attending for an airway protection. 09/19: Remains sedated, orally intubated on mechanical ventilation. CT chest showed right lower lobe lung mass suspicious for malignancy. Patient has a PEG tube following previous stroke. 09/20: Remains sedated, orally intubated on mechanical ventilation. Started on tube feeds. 09/21: Remains sedated, orally intubated on mechanical ventilation. Tolerating tube feeds. Right approximately swelling noted. 09/22 Is not tolerating CPAP trial when decrease PS below 18. Daughter at bedside, says will be here later. Says they don't think they want to proceed with lung biopsy at this time, but on the other hand she discusses the possibility of re-do trach. She says they are not sure how to proceed. I suggested we meet together. Daughter states she has been bedridden since stroke about 4 years ago. Has been in skilled nursing. PEG due to dysphagia, does not eat. Speaks a little but daughter states she has declined significantly over the last 2 weeks. 09/23 No significant change. Patient does not tolerate CPAP. Family is very clear that they do not wish to pursue biopsy or diagnosis of suspected lung cancer. At this time, they wish to continue supportive care with vent and FULL CODE. 09/24 No change. Does not tolerate CPAP. Will diurese for positive fluid balance. 09/25 Now on CPAP 20/5 and not tolerating wean. Continue attempts at diuresis to address positive fluid balance since admission 09/26: Remains sedated, orally intubated on mechanical ventilation. Hold CPAP trials yesterday 09/27 Patient is sedated with Diprivan and intubated. Tolerating tube feeds. Afebrile. 09/28 Patient remains intubated and sedated. T;100.8 09/29 Has not made any progress towards weaning. Family offered comfort measures however they expressed desire to proceed with trach Subjective: 09/30 status post bedside tracheostomy yesterday by Dr. Gavin. Discontinued propofol drip. On CPAP 14/5 for 2 hours today. BP is low, will need to hold metoprolol and titrate back on cardizem (nurses held some doses yesterday too). Positive fluid balance but not able to diurese today due to low BP. Awaiting bed at [facility], [place]. 10/01 Patient remains on ventilator via trach. On no sedation. Hgb 6.7 this morning and T: 100.4 at midnight. Tachycardic. 10/02 Patient is on ventilator via trach. On no sedation. Spiked fever with T: 101.5. s/p transfusion 2u PRBC yesterday. Mcmillan/thick secretions noted per nursing staff. 10/03 Patient had low grade fever with T:100.4 last night. Tube feeds held for abd distention. KUB yesterday showed normal bowel gas pattern. 10/04 Patient is on ventilator via trach. For panendoscopy today. T:99.8 last night. 10/05 Patient is on ventilator via trach, on no drips. s/p panendoscopy yesterday showed chronic gastritis with no source of bleeding identified on upper or lower endoscopy. Afebrile. 10/06 Patient remains on ventilator via trach. T:99.9 yesterday 10/07: Remains on the vent continues to fail CPAP trials due to tachypnea. No nausea vomiting overnight currently resolved. Chest tube had been restarted. Low-grade fever 100.6 10/08: Continues to fail CPAP trials. However on vent support appears comfortable. Daughter at the bedside updated. No fever today 10/09: No acute changes overnight. The patient continues to fail CPAP. Patient tolerating tube feeds. 10/10: Afebrile .patient tolerating CPAP trials this a.m.. False level was noted to be low replacement underway. Bowel movements x2 last night Objective Vital Signs / I&O: Vital Signs 10/09/18 12:00 10/09/18 12:10 10/09/18 13:00 Temperature 99.6 F Pulse Rate 102 H 105 H 109 H Respiratory Rate 17 18 26 H Blood Pressure 132/60 127/68 Pulse Oximetry 97 99 99 10/09/18 14:00 10/09/18 16:00 10/09/18 17:00 Temperature 99.5 F Pulse Rate 104 H 107 H 103 H Respiratory Rate 16 33 H 21 Blood Pressure 130/60 140/71 132/60 Pulse Oximetry 100 98 100 10/09/18 18:00 10/09/18 20:00 10/09/18 20:10 Temperature 99.1 F Pulse Rate 97 H 101 H Respiratory Rate 21 18 Blood Pressure 142/65 H Pulse Oximetry 100 100 10/09/18 20:14 10/09/18 22:00 10/10/18 00:00 Temperature 99.4 F Pulse Rate 100 H 102 H 104 H Respiratory Rate 18 22 Blood Pressure 129/59 L Pulse Oximetry 99 10/10/18 00:02 10/10/18 02:00 10/10/18 04:00 Temperature 99.4 F Pulse Rate 104 H 105 H 92 H Respiratory Rate 20 29 H Blood Pressure 131/70 Pulse Oximetry 100 99 10/10/18 04:25 10/10/18 06:00 10/10/18 08:14 Temperature Pulse Rate 84 97 H Respiratory Rate 20 35 H Blood Pressure Pulse Oximetry 100 100 10/10/18 10:08 Temperature Pulse Rate Respiratory Rate 21 Blood Pressure Pulse Oximetry 100 Intake & Output 10/09/18 10/10/18 10/10/18 18:59 06:59 18:59 Intake Total 1603 / 1603 1071 / 1071 250 / 250 Output Total 450 / 450 550 / 550 Balance 1153 / 1153 521 / 521 250 / 250 Weight 60.1 kg Intake: IV 100 / 100 200 / 200 Maxipime Inj 1,000 MG In NS Inj 100 / 100 200 / 200 100 ML @ 200 mls/hr IV.SIG Q8H [facility] Rx#:[id number] Oral 0 / 0 Tube Feeding 503 / 503 371 / 371 Water Bolus Amount 500 / 500 250 / 250 Free Water Amount 500 / 500 250 / 250 250 / 250 Output: Urine Amount (Catheter) 450 / 450 550 / 550 Indwelling Urethral Catheter 450 / 450 550 / 550 Other: Date of Last Bowel Movement 10/09/18 10/10/18 # Incontinent Bowel Movements 1 2 Result Diagrams: 10/10/18 04:35 10/10/18 04:35 Other Results: Laboratory Results WBC 5.8 th/mm3 (4.0-11.0) 10/10/18 04:35 RBC 3.69 mil/mm3 (4.00-5.30) L 10/10/18 04:35 Hgb 9.4 gm/dL (11.6-15.3) L 10/10/18 04:35 Hct 29.6 % (35.0-46.0) L 10/10/18 04:35 MCV 80.1 fL (80.0-100.0) 10/10/18 04:35 MCH 25.6 pg (27.0-34.0) L 10/10/18 04:35 MCHC 31.9 % (32.0-36.0) L 10/10/18 04:35 RDW 20.9 % (11.6-17.2) H 10/10/18 04:35 Plt Count 264 th/mm3 (150-450) 10/10/18 04:35 MPV 9.0 fL (7.0-11.0) 10/10/18 04:35 Prelim Diff (Auto) Slide review pending 10/09/18 04:36 Neut % (Auto) 56.3 % (16.0-70.0) 10/10/18 04:35 Lymph % (Auto) 23.0 % (9.0-44.0) 10/10/18 04:35 Coal % (Auto) 8.5 % (0.0-8.0) H 10/10/18 04:35 Eos % (Auto) 11.6 % (0.0-4.0) H 10/10/18 04:35 Baso % (Auto) 0.6 % (0.0-2.0) 10/10/18 04:35 Neut # (Auto) 3.3 th/mm3 (1.8-7.7) 10/10/18 04:35 Lymph # (Auto) 1.3 th/mm3 (1.0-4.8) 10/10/18 04:35 Coal # (Auto) 0.5 th/mm3 (0.0-0.9) 10/10/18 04:35 Eos # (Auto) 0.7 th/mm3 (0.0-0.4) H 10/10/18 04:35 Baso # (Auto) 0.0 th/mm3 (0.0-0.2) 10/10/18 04:35 WBC Differential . 10/10/18 04:35 Diff Scan Auto diff confirmed 10/09/18 04:36 Seg Neuts % (Manual) 83 % (16-70) H 09/29/18 03:24 Band Neuts % (Manual) 3 % (0-6) 09/29/18 03:24 Lymphocytes % (Manual) 7 % (9-44) L 09/29/18 03:24 Monocytes % (Manual) 4 % (0-8) 09/29/18 03:24 Eosinophils % (Manual) 3 % (0-4) 09/29/18 03:24 Abs Neuts (Manual) 13.3 th/mm3 (1.8-7.7) H 09/29/18 03:24 Differential Comment Auto diff final 10/10/18 04:35 Toxic Vacuolation Present (None) H 09/29/18 03:24 Platelet Estimate Normal (Normal) 10/09/18 04:36 Platelet Morphology Enlarged (Normal) H 10/09/18 04:36 Tear Drop Cells 1+ (None) H 09/23/18 06:13 Ovalocytes 1+ (None) H 10/01/18 04:15 PT 10.2 sec (9.8-11.6) 09/19/18 04:06 INR 1.0 Ratio 09/19/18 04:06 APTT 21.7 sec (23.4-31.7) L 09/19/18 04:06 Puncture Site Left radial 09/19/18 11:07 Patient Temperature 98.6 09/19/18 11:07 O2 Saturation 96 % (90-100) 09/19/18 11:07 ABG pH 7.51 (7.380-7.420) H* 09/19/18 11:07 ABG pCO2 29 mmHg (38-42) L 09/19/18 11:07 ABG pO2 134 mmHG (61-120) H 09/19/18 11:07 ABG HCO3 22 mmol/L (22-26) 09/19/18 11:07 ABG O2 Content 11.7 Vol % (12.0-20.0) L 09/19/18 11:07 ABG Base Excess -0.3 mmol/L (-2-2) 09/19/18 11:07 ABG Methemoglobin 1.7 % (0-2) 09/19/18 11:07 Vasiliy Test Present 09/19/18 11:07 Hemoglobin 8.4 G/DL (12.0-16.0) L 09/19/18 11:07 Carboxyhemoglobin 1.1 % (0-4) 09/19/18 11:07 O2 Delivery Device Ventilator 09/19/18 11:07 Vent Setting Prvc20/500/1.0/+5 09/19/18 11:07 Inspired O2 35 % 09/19/18 11:07 Critical Value Yes 09/19/18 11:07 Sodium 141 meq/L (136-145) 10/10/18 04:35 Potassium 4.0 meq/L (3.5-5.1) 10/10/18 04:35 Chloride 109 meq/L (98-107) H 10/10/18 04:35 Carbon Dioxide 26.6 meq/L (21.0-32.0) 10/10/18 04:35 Anion Gap 5 meq/L (5-15) 10/10/18 04:35 BUN 10 mg/dL (7-18) 10/10/18 04:35 Creatinine 0.56 mg/dL (0.50-1.00) 10/10/18 04:35 Estimated GFR Greater than 89 mL/min (>89) 10/10/18 04:35 POC Glucose 111 mg/dl (68-110) H 10/10/18 11:08 Random Glucose 93 mg/dL (74-106) 10/10/18 04:35 Lactic Acid 4.1 mmol/L (0.4-2.0) H* 09/19/18 04:06 Calcium 8.5 mg/dL (8.5-10.1) 10/10/18 04:35 Calcium Adj for Albumin 8.4 mg/dL (8.5-10.1) L 09/18/18 18:44 Phosphorus 2.2 mg/dL (2.5-4.9) L 10/10/18 04:35 Magnesium 2.2 mg/dL (1.5-2.5) 10/10/18 04:35 Total Bilirubin 0.2 mg/dL (0.2-1.0) 10/09/18 04:36 AST 15 U/L (15-37) 10/09/18 04:36 ALT 16 U/L (10-53) 10/09/18 04:36 Alkaline Phosphatase 89 U/L (45-117) 10/09/18 04:36 Total Creatine Kinase 123 U/L (26-192) 09/21/18 11:26 Troponin I 0.12 ng/mL (0.02-0.05) H 09/18/18 18:44 Total Protein 7.5 g/dL (6.4-8.2) 10/09/18 04:36 Albumin 2.2 g/dL (3.4-5.0) L 10/09/18 04:36 Urine Color Yellow (Yellw/Straw) 10/01/18 14:20 Urine Clarity Hazy (Clear) H 10/01/18 14:20 Urine pH 5.0 (5.0-8.5) 10/01/18 14:20 Ur Specific Dalton 1.024 (1.002-1.035) 10/01/18 14:20 Urine Protein 30 mg/dL (Neg-Trace) H 10/01/18 14:20 Urine Glucose (UA) Negative mg/dL (Negative) 10/01/18 14:20 Urine Ketones Negative mg/dL (Negative) 10/01/18 14:20 Urine Occult Blood Negative (Negative) 10/01/18 14:20 Urine Nitrate Negative (Negative) 10/01/18 14:20 Urine Bilirubin Negative (Negative) 10/01/18 14:20 Urine Urobilinogen Less than 2 mg/dL (Less than 2) 10/01/18 14:20 Ur Leukocyte Esterase Trace (Negative) H 10/01/18 14:20 Urine RBC Less than 1 /hpf (0-3) 09/28/18 15:30 Urine WBC 4 /hpf (0-5) 10/01/18 14:20 Urine WBC Clumps Many (None) H 09/18/18 18:35 Ur Squamous Epith Cells <1 /hpf (0-5) 10/01/18 14:20 Triple Phos Crystals Many /hpf (None) H 09/18/18 18:35 Urine Bacteria Moderate /hpf (None) H 09/18/18 18:35 Hyaline Casts 1 /lpf (0-3) 09/28/18 15:30 Granular Casts 1 /lpf (None) 10/01/18 14:20 Urine Mucus Few /lpf (Occasional) H 10/01/18 14:20 Micro UA Comment Culture indicated 09/28/18 15:30 Ur Microscopic Review Not Reportable 10/01/18 14:20 Urine Culture Comments Culture indicated 09/28/18 15:30 Nasal Screen MRSA (PCR) Not detected (Negative) 09/18/18 22:46 Stl C.difficile DNA Amp Negative (Negative) 10/01/18 16:10 St C. diff Tox Epid 027 Negative (Negative) 10/01/18 16:10 Vancomycin Trough 11.2 mcg/mL (5.0-10.0) H 10/05/18 11:49 Random Vancomycin 19.5 Comment 09/26/18 14:26 Blood Type B Positive 09/29/18 03:30 Blood Type Recheck Required 09/29/18 03:30 Antibody Screen Negative 09/29/18 03:30 MTS Gel Crossmatch See Detail 10/01/18 03:[address] 09/18/18 18:40 CONCLUSION: 1. Stable appearance of the brain. Marked ventriculomegaly and white matter disease. . Chest CTA 09/18/18 19:26 CONCLUSION: 1. There is no evidence for pulmonary embolism. 2. Severe emphysema. 3. There is a large soft tissue mass in the right lower lobe suspicious for malignancy until proven otherwise. Venous Doppler Study 10/01/18 00:00 CONCLUSION: 1. Superficial venous thrombosis identified in the right cephalic vein. 2. No evidence of DVT. Abdomen/Pelvis CT 10/03/18 07:26 CONCLUSION: 1. There is air and fluid identified within the stomach which may account for the patient's perceived distention. No evidence of bowel obstruction or ileus. 2. Extensive atherosclerosis. 3. Persistent right lower lobe airspace consolidation. Abdomen X-Ray 10/08/18 09:15 CONCLUSION: No acute findings Chest X-Ray 10/10/18 04:00 CONCLUSION: 1. No significant interval change. 2. Stable parenchymal opacity in the right mid to lower lung zones. Objective Remarks: GENERAL: Well-nourished, well-developed patient female appearing older than stated age resting comfortable SKIN: Warm and dry. HEAD: Atraumatic. Normocephalic. EYES: Pupils equal and round. No scleral icterus. No injection or drainage. ENT: No nasal bleeding or discharge. Mucous membranes pink and moist. NECK: Tracheostomy in place, slight pink tinge to secretions, no active bleeding. CARDIOVASCULAR: S1S2 normal, No murmurs rubs or gallops. RESPIRATORY: Tracheostomy 8.0 Shiley in situ, currently on CPAP trials B/L equal air entry GASTROINTESTINAL: Abdomen soft, non-tender,distended. PEG in place, MUSCULOSKELETAL: Extremities without clubbing, cyanosis, or edema. s/p L AKA. NEUROLOGICAL: Awakens, looks around. Blinks and squeezes hand to command Assessment and Plan - Assessment and Plan Plan: NEURO: History of stroke Off sedation. Monitor neuro status RESP: Acute respiratory failure on mechanical ventilation Emphysema Lung mass History of prior trach after stroke, has been subsequently decannulated Per Dr. De Jesus. not wishing to pursue CT-guided biopsy. Continue with vent support Daily CPAP trials. Vent bundle/nebs. Percutaneous tracheostomy performed at bedside 09/29. Pulm toilet, trach care CV: HTN Monitor BP/heart rate keep MAP>65mmHg. On Cardizem 30mg q6 with hold orders. GI: PEG in place. On Glucerna 1.5 @ 40ml/hr with goal rate 60ml/hr KUB abdomen 10/02 Normal bowel gas pattern. CT abd/pelvis 10/03: No evidence of bowel obstruction or ileus. Clinically no evidence of PEG tube malfunction dislodgment FEN/RENAL: Acute hypernatremia- resolved Monitor renal function, I/O's, electrolytes replacement per protocol. Free water 250ml Q8, ID: HCAP UTI Urine culture from 09/18 with providentia and Proteus. BC 10/01: NGTD sputum cx 09/28 and 10/03 : No growth On abx Cefepime and Vanco, d/c Vanco, monitor for signs of infections ( Fever, WBC) C-diff PCR negative on 10/01 HEME: R brachial DVT Anemia Lovenox 60 mg subcu every 12 hours. s/p Transfuse 2u PRBC 10/01 GI is following for EGD/Colonoscopy today ENDO: Diabetes mellitus Insulin sliding scale PROPH: SCD/Lovenox for DVT prophylaxis. Protonix 40mg Q12 for stress ulcer prophylaxis. 10/01 Doppler US UE b/l: Superficial venous thrombosis identified in the right cephalic vein. No evidence of DVT. 09/21 Doppler US RUE: Occlusive thrombus cephalic and brachial veins ACCESS: PIV x2. Full code Level 3 follow-up Planned transfer to LTAC when bed available Code Status: Full Discussed Condition With: CONTRACT ADMINISTRATION MANAGER at bedside
[2018-10-10] MEDS: Pantoprazole Inj 40 MG Vial IV.PUSH SCH ×2 (12:35→23:16)
[2018-10-11] MEDS: dilTIAZem 30 MG Tablet PO SCH ×4 (03:33→22:30)
[2018-10-11] MEDS: Oral Hygiene Kit OROPHARYNG SCH ×4 (03:34→23:45)
[2018-10-11] MEDS: Insulin NovoLIN Regular Correctional Sugar Inj SQ SCH ×4 (05:55→23:45)
[2018-10-11 08:56] LABS: Baso % (Auto) 0.7 % (0.0-2.0); Eos # (Auto) 0.6 th/mm3 (0.0-0.4); Eos % (Auto) 10.2 % (0.0-4.0); Hematocrit 28.4 % (35.0-46.0); Lymph # (Auto) 1.2 th/mm3 (1.0-4.8); Lymph % (Auto) 19.6 % (9.0-44.0); Mean Corpuscular HGB Conc 31.6 % (32.0-36.0); Mean Corpuscular Hemoglobin 25.2 pg (27.0-34.0); Mean Corpuscular Volume 79.6 fL (80.0-100.0); Mean Platelet Volume 8.9 fL (7.0-11.0); Mono # (Auto) 0.6 th/mm3 (0.0-0.9); Mono % (Auto) 9.4 % (0.0-8.0); Neut # (Auto) 3.7 th/mm3 (1.8-7.7); Neut % (Auto) 60.1 % (16.0-70.0); Platelet Count 265 th/mm3 (150-450); Red Blood Count 3.57 mil/mm3 (4.00-5.30); Red Cell Distribution Width 20.7 % (11.6-17.2); White Blood Count 6.1 th/mm3 (4.0-11.0)
[2018-10-11] MEDS: Enoxaparin Inj 60 MG/0.6 ML Syringe SQ SCH ×2 (09:01→21:26)
[2018-10-11] MEDS: Chlorhexidine 0.12% Oral Kit 15 ML UDC OROPHARYNG SCH ×2 (09:01→21:26)
[2018-10-11] MEDS: Senna/Docusate Sodium 8.6/50 MG Tablet PO SCH ×2 (09:02→21:26)
[2018-10-11 09:26] LABS: Anion Gap 6 meq/L (5-15); Blood Urea Nitrogen 7 mg/dL (7-18); Calcium 8.5 mg/dL (8.5-10.1); Chloride 106 meq/L (98-107); Glomerular Filtration Rate Greater Than 89 mL/min (>89); Glucose,Random 103 mg/dL (74-106); Magnesium 2.2 mg/dL (1.5-2.5); Phosphorus 2.6 mg/dL (2.5-4.9); Potassium 3.6 meq/L (3.5-5.1); Sodium 140 meq/L (136-145)
[2018-10-11] MEDS: Pantoprazole Inj 40 MG Vial IV.PUSH SCH ×2 (11:26→23:45)
--- NOTE | 2018-10-11 14:41 | P.DIET ---
Nutritional Evaluation Type of nutrition evaluation: follow-up Nutrition consult regarding: Tube Feeding Screening comments: 09/19/18 TF review Objective - Diagnosis Fever, AMS - Objective Part of Body Amputated: Left above knee (12%) [place] body weight: 50 kg (adj IBW 44kg, adjBW: 53.6kg) % IBW: 139 Energy Needs - Lower Range (kCal/kg): 28 Energy Needs - Upper Range (kCal/kg): 33 Lower Limit kCal/kg (kCals): 1,501 Upper Limit kCal/kg (kCals): 1,769 Lower Limit Protein Factor (Grams per Kg): 1.2 Upper Limit Protein Factor (Grams per Kg): 1.5 Lower Protein Needs (Protein): 64 Upper Protein Needs (Protein): 80 Dietitian Reviewed in Medical Record: Curent medications, Intake & Output, Labs , Medical history, Tube feeding Diet Order: NPO Objective Comments: PMH: stroke, DM, Dysphagia, HTN, Hemiparesis, L AKA, PEG placement Labs include: POC glucose 102 123 125 Meds include: novolin LBM 10/11/18 Pt's nutritional needs based on AdjBW of 53.6kg r/t L AKA Assessment Assessment: Pt remains at nutritional risk r/t need for a TF for nutrition support. Pt continues to be intubated, off sedation now, on mech vent via trach. Pts TF now at Glucerna 1.5 @ 30mL/hr, goal rate now per MD. To best meet pt's needs, RD continue to recommend TF Glucerna 1.5 with goal rate of 45ml/hr to provide 1620kcals, 89gms protein and 820mls free water. Spoke w/ CHER Song about TF recommendations and pts wounds. Per RN pt still has an unstageable pressure injury on sacrum. RD to recommend Berny 1-pkt BID to promote wound healing. Continue to monitor TF tolerance, clinical course. Labs reviewed, dietitian following. Brought forward: Noted pt was on hospice with a DNR which removed upon admission. Recommendations: 1. RD continue to recommend TF Glucerna 1.5 @ 45mL/hr 2. RD to recommend Berny 1-pkt BID to promote wound healing 3. Continue to monitor TF tolerance, clinical course 4. Dietitian following Dietitian to Monitor: Lab values, Glucose level, Intake & Output, Tube feeding tolerance, Weight change, Wound/skin status, Medical course
--- NOTE | 2018-10-11 15:49 | P.PNPL ---
Subjective Interval history: 68 YOAA female who was with Hospice svc, now rescended Tolerating CPAP off sedation Tolerates TF Awake, does't follow command daughter at BS Physical Exam Vital signs: Vital Signs 10/10/18 16:00 10/10/18 16:22 10/10/18 17:00 Temperature 99.5 F Pulse Rate 98 H 93 H Respiratory Rate 39 H 29 H 40 H Blood Pressure 128/58 L 133/63 Pulse Oximetry 99 100 99 10/10/18 17:03 10/10/18 18:00 10/10/18 20:00 Temperature 99.3 F Pulse Rate 83 97 H Respiratory Rate 17 16 26 H Blood Pressure 136/62 140/63 Pulse Oximetry 100 100 100 10/10/18 20:05 10/10/18 20:10 10/10/18 20:12 Temperature Pulse Rate 97 H 98 H Respiratory Rate 16 16 Blood Pressure Pulse Oximetry 99 10/10/18 22:10 10/11/18 00:00 10/11/18 00:01 Temperature 100.4 F H Pulse Rate 108 H 100 H Respiratory Rate 16 16 Blood Pressure 134/63 Pulse Oximetry 95 99 10/11/18 02:10 10/11/18 04:00 10/11/18 05:18 Temperature 99.4 F Pulse Rate 102 H 101 H Respiratory Rate 23 22 Blood Pressure 140/63 Pulse Oximetry 100 98 10/11/18 06:00 10/11/18 07:46 10/11/18 07:54 Temperature Pulse Rate 92 H 104 H Respiratory Rate 32 H 32 H Blood Pressure Pulse Oximetry 100 10/11/18 08:00 10/11/18 08:01 10/11/18 09:00 Temperature 99.0 F Pulse Rate 99 H 112 H 102 H Respiratory Rate 14 14 22 Blood Pressure 148/69 H 139/62 Pulse Oximetry 100 96 99 10/11/18 10:00 10/11/18 11:00 10/11/18 12:00 Temperature 99.8 F H Pulse Rate 100 H 100 H 98 H Respiratory Rate 14 11 L Blood Pressure 142/65 H 139/63 Pulse Oximetry 99 100 10/11/18 12:03 10/11/18 12:47 10/11/18 14:00 Temperature Pulse Rate 98 H 93 H Respiratory Rate 13 16 Blood Pressure Pulse Oximetry 100 10/11/18 14:53 Temperature Pulse Rate Respiratory Rate 15 Blood Pressure Pulse Oximetry 100 Intake & Output 10/10/18 10/11/18 10/11/18 18:59 06:59 18:59 Intake Total 1426 / 1426 1347 / 1347 250 / 250 Output Total 650 / 650 400 / 400 Balance 776 / 776 947 / 947 250 / 250 Weight 59.7 kg Intake: IV 580 / 580 Maxipime Inj 1,000 MG In NS Inj 300 / 300 100 ML @ 200 mls/hr IV.SIG Q8H [facility] Rx#:[id number] Glycophos Inj 30 MMOL In NS Inj 280 / 280 250 ML @ 42 mls/hr IV.SIG [facility]NSCH PRN Rx#:[id number] Oral 0 / 0 Tube Feeding 426 / 426 267 / 267 Water Bolus Amount 500 / 500 250 / 250 Free Water Amount 500 / 500 250 / 250 250 / 250 Output: Urine Amount (Catheter) 650 / 650 400 / 400 Indwelling Urethral Catheter 650 / 650 400 / 400 Other: Date of Last Bowel Movement 10/09/18 10/11/18 10/11/18 # Incontinent Bowel Movements 2 3 GENERAL: Elderly AA female, on CPAP SKIN: Warm and dry. HEAD: Normocephalic. EYES: No scleral icterus. No injection or drainage. NECK: Supple, trachea midline. No JVD or lymphadenopathy. has trach CARDIOVASCULAR: Regular rate and rhythm without murmurs, gallops, or rubs. RESPIRATORY: Breath sounds equal bilaterally. No accessory muscle use. GASTROINTESTINAL: Abdomen soft, non-tender, nondistended. MUSCULOSKELETAL: No cyanosis, or edema. Has Left AKA BACK: Nontender without obvious deformity. No CVA tenderness. - Urinary Catheter Management Indwelling Temp Sensing Catheter Cath placed during this visit: yes, but has since been removed by the nurse Reason for continuing: Severe pressure ulcer/wound Insertion date: 09/18/18 Insertion time: 18:50 Removal date: 09/23/18 Removal time: 16:00 Female External Cath placed during this visit: no Reason for continuing: Severe pressure ulcer/wound Straight Cath placed during this visit: no Indwelling Urethral Catheter Cath placed during this visit: yes Reason for continuing: Severe pressure ulcer/wound Insertion date: 10/07/18 Insertion time: 10:00 Assessment and Plan - Plan IMPRESSION: VDRF large Rt lung mass COPD HTN H/O CVA PLAN: CPAP trial daily Aerosol nebs Cont Abx Trach care. Tube feeding DC plans for [facility]. DW Daughter at BS.
--- NOTE | 2018-10-11 16:03 | P.PNCC ---
Subjective Subjective Remarks/Hospital Course: 09/18: 68-year-old female past medical history of stroke, left BKA, who was on home hospice until just prior to arrival, presents for an evaluation of fever and altered mental status. According to EMS the patient had not required oxygen until beginning of this week when she had gradual increased demand of her oxygen. End-tidal CO2 prior to arrival was 6. Initial room nasal cannula saturation was 91, she was placed on nonrebreather position of comfort and transfer to emergency department. EMS related that the had elected to revoke the patient's DNR and hospice care prior to transferring her to the hospital. The patient apparently is normally a GCS of 14, apparently she does take some thickened food p.o. department the patient was severely altered with GCS of 6 on arrival [id number] and was intubated by ED attending for an airway protection. 09/19: Remains sedated, orally intubated on mechanical ventilation. CT chest showed right lower lobe lung mass suspicious for malignancy. Patient has a PEG tube following previous stroke. 09/20: Remains sedated, orally intubated on mechanical ventilation. Started on tube feeds. 09/21: Remains sedated, orally intubated on mechanical ventilation. Tolerating tube feeds. Right approximately swelling noted. 09/22 Is not tolerating CPAP trial when decrease PS below 18. Daughter at bedside, says will be here later. Says they don't think they want to proceed with lung biopsy at this time, but on the other hand she discusses the possibility of re-do trach. She says they are not sure how to proceed. I suggested we meet together. Daughter states she has been bedridden since stroke about 4 years ago. Has been in senior care. PEG due to dysphagia, does not eat. Speaks a little but daughter states she has declined significantly over the last 2 weeks. 09/23 No significant change. Patient does not tolerate CPAP. Family is very clear that they do not wish to pursue biopsy or diagnosis of suspected lung cancer. At this time, they wish to continue supportive care with vent and FULL CODE. 09/24 No change. Does not tolerate CPAP. Will diurese for positive fluid balance. 09/25 Now on CPAP 20/5 and not tolerating wean. Continue attempts at diuresis to address positive fluid balance since admission 09/26: Remains sedated, orally intubated on mechanical ventilation. Hold CPAP trials yesterday 09/27 Patient is sedated with Diprivan and intubated. Tolerating tube feeds. Afebrile. 09/28 Patient remains intubated and sedated. T;100.8 09/29 Has not made any progress towards weaning. Family offered comfort measures however they expressed desire to proceed with trach Subjective: 09/30 status post bedside tracheostomy yesterday by Dr. Gavin. Discontinued propofol drip. On CPAP 14/5 for 2 hours today. BP is low, will need to hold metoprolol and titrate back on cardizem (nurses held some doses yesterday too). Positive fluid balance but not able to diurese today due to low BP. Awaiting bed at [facility]. 10/01 Patient remains on ventilator via trach. On no sedation. Hgb 6.7 this morning and T: 100.4 at midnight. Tachycardic. 10/02 Patient is on ventilator via trach. On no sedation. Spiked fever with T: 101.5. s/p transfusion 2u PRBC yesterday. Mcmillan/thick secretions noted per nursing staff. 10/03 Patient had low grade fever with T:100.4 last night. Tube feeds held for abd distention. KUB yesterday showed normal bowel gas pattern. 10/04 Patient is on ventilator via trach. For panendoscopy today. T:99.8 last night. 10/05 Patient is on ventilator via trach, on no drips. s/p panendoscopy yesterday showed chronic gastritis with no source of bleeding identified on upper or lower endoscopy. Afebrile. 10/06 Patient remains on ventilator via trach. T:99.9 yesterday 10/07: Remains on the vent continues to fail CPAP trials due to tachypnea. No nausea vomiting overnight currently resolved. Chest tube had been restarted. Low-grade fever 100.6 10/08: Continues to fail CPAP trials. However on vent support appears comfortable. Daughter at the bedside updated. No fever today 10/09: No acute changes overnight. The patient continues to fail CPAP. Patient tolerating tube feeds. 10/10: Afebrile .patient tolerating CPAP trials this a.m.. False level was noted to be low replacement underway. Bowel movements x2 last night 10/11: Patient continues to tolerate CPAP trials 3-4 hours/day Glucerna tube feeds increased to 45 cc/an hour as recommended by dietitian. Objective Vital Signs / I&O: Vital Signs 10/10/18 16:00 10/10/18 16:22 10/10/18 17:00 Temperature 99.5 F Pulse Rate 98 H 93 H Respiratory Rate 39 H 29 H 40 H Blood Pressure 128/58 L 133/63 Pulse Oximetry 99 100 99 10/10/18 17:03 10/10/18 18:00 10/10/18 20:00 Temperature 99.3 F Pulse Rate 83 97 H Respiratory Rate 17 16 26 H Blood Pressure 136/62 140/63 Pulse Oximetry 100 100 100 10/10/18 20:05 10/10/18 20:10 10/10/18 20:12 Temperature Pulse Rate 97 H 98 H Respiratory Rate 16 16 Blood Pressure Pulse Oximetry 99 10/10/18 22:10 10/11/18 00:00 10/11/18 00:01 Temperature 100.4 F H Pulse Rate 108 H 100 H Respiratory Rate 16 16 Blood Pressure 134/63 Pulse Oximetry 95 99 10/11/18 02:10 10/11/18 04:00 10/11/18 05:18 Temperature 99.4 F Pulse Rate 102 H 101 H Respiratory Rate 23 22 Blood Pressure 140/63 Pulse Oximetry 100 98 10/11/18 06:00 10/11/18 07:46 10/11/18 07:54 Temperature Pulse Rate 92 H 104 H Respiratory Rate 32 H 32 H Blood Pressure Pulse Oximetry 100 10/11/18 08:00 10/11/18 08:01 10/11/18 09:00 Temperature 99.0 F Pulse Rate 99 H 112 H 102 H Respiratory Rate 14 14 22 Blood Pressure 148/69 H 139/62 Pulse Oximetry 100 96 99 10/11/18 10:00 10/11/18 11:00 10/11/18 12:00 Temperature 99.8 F H Pulse Rate 100 H 100 H 98 H Respiratory Rate 14 11 L Blood Pressure 142/65 H 139/63 Pulse Oximetry 99 100 10/11/18 12:03 10/11/18 12:47 10/11/18 14:00 Temperature Pulse Rate 98 H 93 H Respiratory Rate 13 16 Blood Pressure Pulse Oximetry 100 10/11/18 14:53 Temperature Pulse Rate Respiratory Rate 15 Blood Pressure Pulse Oximetry 100 Intake & Output 10/10/18 10/11/18 10/11/18 18:59 06:59 18:59 Intake Total 1426 / 1426 1347 / 1347 250 / 250 Output Total 650 / 650 400 / 400 Balance 776 / 776 947 / 947 250 / 250 Weight 59.7 kg Intake: IV 580 / 580 Maxipime Inj 1,000 MG In NS Inj 300 / 300 100 ML @ 200 mls/hr IV.SIG Q8H JORGE Rx#:[id number] Glycophos Inj 30 MMOL In NS Inj 280 / 280 250 ML @ 42 mls/hr IV.SIG UNSCH PRN Rx#:[id number] Oral 0 / 0 Tube Feeding 426 / 426 267 / 267 Water Bolus Amount 500 / 500 250 / 250 Free Water Amount 500 / 500 250 / 250 250 / 250 Output: Urine Amount (Catheter) 650 / 650 400 / 400 Indwelling Urethral Catheter 650 / 650 400 / 400 Other: Date of Last Bowel Movement 10/09/18 10/11/18 10/11/18 # Incontinent Bowel Movements 2 3 Result Diagrams: 10/13/18 05:23 10/13/18 05:23 Other Results: Laboratory Results WBC 6.1 th/mm3 (4.0-11.0) 10/11/18 07:32 RBC 3.57 mil/mm3 (4.00-5.30) L 10/11/18 07:32 Hgb 9.0 gm/dL (11.6-15.3) L 10/11/18 07:32 Hct 28.4 % (35.0-46.0) L 10/11/18 07:32 MCV 79.6 fL (80.0-100.0) L 10/11/18 07:32 MCH 25.2 pg (27.0-34.0) L 10/11/18 07:32 MCHC 31.6 % (32.0-36.0) L 10/11/18 07:32 RDW 20.7 % (11.6-17.2) H 10/11/18 07:32 Plt Count 265 th/mm3 (150-450) 10/11/18 07:32 MPV 8.9 fL (7.0-11.0) 10/11/18 07:32 Prelim Diff (Auto) Slide review pending 10/09/18 04:36 Neut % (Auto) 60.1 % (16.0-70.0) 10/11/18 07:32 Lymph % (Auto) 19.6 % (9.0-44.0) 10/11/18 07:32 [place] % (Auto) 9.4 % (0.0-8.0) H 10/11/18 07:32 Eos % (Auto) 10.2 % (0.0-4.0) H 10/11/18 07:32 Baso % (Auto) 0.7 % (0.0-2.0) 10/11/18 07:32 Neut # (Auto) 3.7 th/mm3 (1.8-7.7) 10/11/18 07:32 Lymph # (Auto) 1.2 th/mm3 (1.0-4.8) 10/11/18 07:32 [place] # (Auto) 0.6 th/mm3 (0.0-0.9) 10/11/18 07:32 Eos # (Auto) 0.6 th/mm3 (0.0-0.4) H 10/11/18 07:32 Baso # (Auto) 0.0 th/mm3 (0.0-0.2) 10/11/18 07:32 WBC Differential . 10/11/18 07:32 Diff Scan Auto diff confirmed 10/09/18 04:36 Seg Neuts % (Manual) 83 % (16-70) H 09/29/18 03:24 Band Neuts % (Manual) 3 % (0-6) 09/29/18 03:24 Lymphocytes % (Manual) 7 % (9-44) L 09/29/18 03:24 Monocytes % (Manual) 4 % (0-8) 09/29/18 03:24 Eosinophils % (Manual) 3 % (0-4) 09/29/18 03:24 Abs Neuts (Manual) 13.3 th/mm3 (1.8-7.7) H 09/29/18 03:24 Differential Comment Auto diff final 10/11/18 07:32 Toxic Vacuolation Present (None) H 09/29/18 03:24 Platelet Estimate Normal (Normal) 10/09/18 04:36 Platelet Morphology Enlarged (Normal) H 10/09/18 04:36 Tear Drop Cells 1+ (None) H 09/23/18 06:13 Ovalocytes 1+ (None) H 10/01/18 04:15 PT 10.2 sec (9.8-11.6) 09/19/18 04:06 INR 1.0 Ratio 09/19/18 04:06 APTT 21.7 sec (23.4-31.7) L 09/19/18 04:06 Puncture Site Left radial 09/19/18 11:07 Patient Temperature 98.6 09/19/18 11:07 O2 Saturation 96 % (90-100) 09/19/18 11:07 ABG pH 7.51 (7.380-7.420) H* 09/19/18 11:07 ABG pCO2 29 mmHg (38-42) L 09/19/18 11:07 ABG pO2 134 mmHG (61-120) H 09/19/18 11:07 ABG HCO3 22 mmol/L (22-26) 09/19/18 11:07 ABG O2 Content 11.7 Vol % (12.0-20.0) L 09/19/18 11:07 ABG Base Excess -0.3 mmol/L (-2-2) 09/19/18 11:07 ABG Methemoglobin 1.7 % (0-2) 09/19/18 11:07 Vasiliy Test Present 09/19/18 11:07 Hemoglobin 8.4 G/DL (12.0-16.0) L 09/19/18 11:07 Carboxyhemoglobin 1.1 % (0-4) 09/19/18 11:07 O2 Delivery Device Ventilator 09/19/18 11:07 Vent Setting Prvc20/500/1.0/+5 09/19/18 11:07 Inspired O2 35 % 09/19/18 11:07 Critical Value Yes 09/19/18 11:07 Sodium 140 meq/L (136-145) 10/11/18 07:32 Potassium 3.6 meq/L (3.5-5.1) 10/11/18 07:32 Chloride 106 meq/L (98-107) 10/11/18 07:32 Carbon Dioxide 28.0 meq/L (21.0-32.0) 10/11/18 07:32 Anion Gap 6 meq/L (5-15) 10/11/18 07:32 BUN 7 mg/dL (7-18) 10/11/18 07:32 Creatinine 0.54 mg/dL (0.50-1.00) 10/11/18 07:32 Estimated GFR Greater than 89 mL/min (>89) 10/11/18 07:32 POC Glucose 125 mg/dl (68-110) H 10/11/18 12:05 Random Glucose 103 mg/dL (74-106) 10/11/18 07:32 Lactic Acid 4.1 mmol/L (0.4-2.0) H* 09/19/18 04:06 Calcium 8.5 mg/dL (8.5-10.1) 10/11/18 07:32 Calcium Adj for Albumin 8.4 mg/dL (8.5-10.1) L 09/18/18 18:44 Phosphorus 2.6 mg/dL (2.5-4.9) 10/11/18 07:32 Magnesium 2.2 mg/dL (1.5-2.5) 10/11/18 07:32 Total Bilirubin 0.2 mg/dL (0.2-1.0) 10/09/18 04:36 AST 15 U/L (15-37) 10/09/18 04:36 ALT 16 U/L (10-53) 10/09/18 04:36 Alkaline Phosphatase 89 U/L (45-117) 10/09/18 04:36 Total Creatine Kinase 123 U/L (26-192) 09/21/18 11:26 Troponin I 0.12 ng/mL (0.02-0.05) H 09/18/18 18:44 Total Protein 7.5 g/dL (6.4-8.2) 10/09/18 04:36 Albumin 2.2 g/dL (3.4-5.0) L 10/09/18 04:36 Urine Color Yellow (Yellw/Straw) 10/01/18 14:20 Urine Clarity Hazy (Clear) H 10/01/18 14:20 Urine pH 5.0 (5.0-8.5) 10/01/18 14:20 Ur Specific [place] 1.024 (1.002-1.035) 10/01/18 14:20 Urine Protein 30 mg/dL (Neg-Trace) H 10/01/18 14:20 Urine Glucose (UA) Negative mg/dL (Negative) 10/01/18 14:20 Urine Ketones Negative mg/dL (Negative) 10/01/18 14:20 Urine Occult Blood Negative (Negative) 10/01/18 14:20 Urine Nitrate Negative (Negative) 10/01/18 14:20 Urine Bilirubin Negative (Negative) 10/01/18 14:20 Urine Urobilinogen Less than 2 mg/dL (Less than 2) 10/01/18 14:20 Ur Leukocyte Esterase Trace (Negative) H 10/01/18 14:20 Urine RBC Less than 1 /hpf (0-3) 09/28/18 15:30 Urine WBC 4 /hpf (0-5) 10/01/18 14:20 Urine WBC Clumps Many (None) H 09/18/18 18:35 Ur Squamous Epith Cells <1 /hpf (0-5) 10/01/18 14:20 Triple Phos Crystals Many /hpf (None) H 09/18/18 18:35 Urine Bacteria Moderate /hpf (None) H 09/18/18 18:35 Hyaline Casts 1 /lpf (0-3) 09/28/18 15:30 Granular Casts 1 /lpf (None) 10/01/18 14:20 Urine Mucus Few /lpf (Occasional) H 10/01/18 14:20 Micro UA Comment Culture indicated 09/28/18 15:30 Ur Microscopic Review Not Reportable 10/01/18 14:20 Urine Culture Comments Culture indicated 09/28/18 15:30 Nasal Screen MRSA (PCR) Not detected (Negative) 09/18/18 22:46 Stl C.difficile DNA Amp Negative (Negative) 10/01/18 16:10 St C. diff Tox Epid 027 Negative (Negative) 10/01/18 16:10 Vancomycin Trough 11.2 mcg/mL (5.0-10.0) H 10/05/18 11:49 Random Vancomycin 19.5 Comment 09/26/18 14:26 Blood Type B Positive 09/29/18 03:30 Blood Type Recheck Required 09/29/18 03:30 Antibody Screen Negative 09/29/18 03:30 MTS Gel Crossmatch See Detail 10/01/18 03:[address] 09/18/18 18:40 CONCLUSION: 1. Stable appearance of the brain. Marked ventriculomegaly and white matter disease. . Chest CTA 09/18/18 19:26 CONCLUSION: 1. There is no evidence for pulmonary embolism. 2. Severe emphysema. 3. There is a large soft tissue mass in the right lower lobe suspicious for malignancy until proven otherwise. Venous Doppler Study 10/01/18 00:00 CONCLUSION: 1. Superficial venous thrombosis identified in the right cephalic vein. 2. No evidence of DVT. Abdomen/Pelvis CT 10/03/18 07:26 CONCLUSION: 1. There is air and fluid identified within the stomach which may account for the patient's perceived distention. No evidence of bowel obstruction or ileus. 2. Extensive atherosclerosis. 3. Persistent right lower lobe airspace consolidation. Abdomen X-Ray 10/08/18 09:15 CONCLUSION: No acute findings Chest X-Ray 10/10/18 04:00 CONCLUSION: 1. No significant interval change. 2. Stable parenchymal opacity in the right mid to lower lung zones. Objective Remarks: GENERAL: Well-nourished, well-developed patient female appearing older than stated age resting comfortable SKIN: Warm and dry. HEAD: Atraumatic. Normocephalic. EYES: Pupils equal and round. No scleral icterus. No injection or drainage. ENT: No nasal bleeding or discharge. Mucous membranes pink and moist. NECK: Tracheostomy in place, slight pink tinge to secretions, no active bleeding. CARDIOVASCULAR: S1S2 normal, No murmurs rubs or gallops. RESPIRATORY: Tracheostomy 8.0 [place] in situ, currently on CPAP trials B/L equal air entry GASTROINTESTINAL: Abdomen soft, non-tender,distended. PEG in place, MUSCULOSKELETAL: Extremities without clubbing, cyanosis, or edema. s/p L AKA. NEUROLOGICAL: Awakens, looks around. Blinks and squeezes hand to command Assessment and Plan - Assessment and Plan Plan: NEURO: History of stroke Off sedation. Monitor neuro status Avoid sedatives RESP: Acute respiratory failure on mechanical ventilation Emphysema Lung mass History of prior trach after stroke, has been subsequently decannulated Per Dr. De Jesus. not wishing to pursue CT-guided biopsy. Continue with vent support Daily CPAP trials. Vent bundle/nebs. Percutaneous tracheostomy performed at bedside 09/29. Pulm toilet, trach care CV: HTN Monitor BP/heart rate keep MAP>65mmHg. On Cardizem 30mg q6 with hold orders. GI: PEG in place. On Glucerna 1.5 @ 45ml/hr KUB abdomen 10/02 Normal bowel gas pattern. CT abd/pelvis 10/03: No evidence of bowel obstruction or ileus. Clinically no evidence of PEG tube malfunction dislodgment FEN/RENAL: Acute hypernatremia- resolved Monitor renal function, I/O's, electrolytes replacement per protocol. Free water 250ml Q8, ID: HCAP UTI Urine culture from 09/18 with providentia and Proteus. BC 10/01: NGTD sputum cx 09/28 and 10/03 : No growth On abx Cefepime and Vanco, d/c Vanco, monitor for signs of infections ( Fever, WBC) C-diff PCR negative on 10/01 HEME: R brachial DVT Anemia Lovenox 60 mg subcu every 12 hours. s/p Transfuse 2u PRBC 10/01 GI is following for EGD/Colonoscopy today ENDO: Diabetes mellitus Insulin sliding scale PROPH: SCD/Lovenox for DVT prophylaxis. Protonix 40mg Q12 for stress ulcer prophylaxis. 10/01 Doppler US UE b/l: Superficial venous thrombosis identified in the right cephalic vein. No evidence of DVT. 09/21 Doppler US RUE: Occlusive thrombus cephalic and brachial veins ACCESS: PIV x2. Full code Level 3 follow-up Planned transfer to LTAC when bed available Code Status: Full Discussed Condition With: Discussed with COMPLIANCE ENGINEER at bedside
[2018-10-12] MEDS: Oral Hygiene Kit OROPHARYNG SCH ×3 (03:26→16:28)
[2018-10-12] MEDS: dilTIAZem 30 MG Tablet PO SCH ×4 (03:26→23:40)
[2018-10-12] MEDS: Insulin NovoLIN Regular Correctional Sugar Inj SQ SCH ×3 (06:13→19:12)
[2018-10-12] MEDS: Senna/Docusate Sodium 8.6/50 MG Tablet PO SCH ×2 (09:10→23:39)
[2018-10-12] MEDS: Enoxaparin Inj 60 MG/0.6 ML Syringe SQ SCH ×2 (09:10→23:38)
[2018-10-12] MEDS: Chlorhexidine 0.12% Oral Kit 15 ML UDC OROPHARYNG SCH (09:10)
[2018-10-12] MEDS: Pantoprazole Inj 40 MG Vial IV.PUSH SCH ×2 (11:42→23:39)
--- NOTE | 2018-10-12 16:49 | P.PNCC ---
Subjective Subjective Remarks/Hospital Course: 09/18: 68-year-old female past medical history of stroke, left BKA, who was on home hospice until just prior to arrival, presents for an evaluation of fever and altered mental status. According to EMS the patient had not required oxygen until beginning of this week when she had gradual increased demand of her oxygen. End-tidal CO2 prior to arrival was 6. Initial room nasal cannula saturation was 91, she was placed on nonrebreather position of comfort and transfer to emergency department. EMS related that the had elected to revoke the patient's DNR and hospice care prior to transferring her to the hospital. The patient apparently is normally a GCS of 14, apparently she does take some thickened food p.o. department the patient was severely altered with GCS of 6 on arrival [id number] and was intubated by ED attending for an airway protection. 09/19: Remains sedated, orally intubated on mechanical ventilation. CT chest showed right lower lobe lung mass suspicious for malignancy. Patient has a PEG tube following previous stroke. 09/20: Remains sedated, orally intubated on mechanical ventilation. Started on tube feeds. 09/21: Remains sedated, orally intubated on mechanical ventilation. Tolerating tube feeds. Right approximately swelling noted. 09/22 Is not tolerating CPAP trial when decrease PS below 18. Daughter at bedside, says will be here later. Says they don't think they want to proceed with lung biopsy at this time, but on the other hand she discusses the possibility of re-do trach. She says they are not sure how to proceed. I suggested we meet together. Daughter states she has been bedridden since stroke about 4 years ago. Has been in longterm. PEG due to dysphagia, does not eat. Speaks a little but daughter states she has declined significantly over the last 2 weeks. 09/23 No significant change. Patient does not tolerate CPAP. Family is very clear that they do not wish to pursue biopsy or diagnosis of suspected lung cancer. At this time, they wish to continue supportive care with vent and FULL CODE. 09/24 No change. Does not tolerate CPAP. Will diurese for positive fluid balance. 09/25 Now on CPAP 20/5 and not tolerating wean. Continue attempts at diuresis to address positive fluid balance since admission 09/26: Remains sedated, orally intubated on mechanical ventilation. Hold CPAP trials yesterday 09/27 Patient is sedated with Diprivan and intubated. Tolerating tube feeds. Afebrile. 09/28 Patient remains intubated and sedated. T;100.8 09/29 Has not made any progress towards weaning. Family offered comfort measures however they expressed desire to proceed with trach Subjective: 09/30 status post bedside tracheostomy yesterday by Dr. Gavin. Discontinued propofol drip. On CPAP 14/5 for 2 hours today. BP is low, will need to hold metoprolol and titrate back on cardizem (nurses held some doses yesterday too). Positive fluid balance but not able to diurese today due to low BP. Awaiting bed at [facility]. 10/01 Patient remains on ventilator via trach. On no sedation. Hgb 6.7 this morning and T: 100.4 at midnight. Tachycardic. 10/02 Patient is on ventilator via trach. On no sedation. Spiked fever with T: 101.5. s/p transfusion 2u PRBC yesterday. [place]millan/thick secretions noted per nursing staff. 10/03 Patient had low grade fever with T:100.4 last night. Tube feeds held for abd distention. KUB yesterday showed normal bowel gas pattern. 10/04 Patient is on ventilator via trach. For panendoscopy today. T:99.8 last night. 10/05 Patient is on ventilator via trach, on no drips. s/p panendoscopy yesterday showed chronic gastritis with no source of bleeding identified on upper or lower endoscopy. Afebrile. 10/06 Patient remains on ventilator via trach. T:99.9 yesterday 10/07: Remains on the vent continues to fail CPAP trials due to tachypnea. No nausea vomiting overnight currently resolved. Chest tube had been restarted. Low-grade fever 100.6 10/08: Continues to fail CPAP trials. However on vent support appears comfortable. Daughter at the bedside updated. No fever today 10/09: No acute changes overnight. The patient continues to fail CPAP. Patient tolerating tube feeds. 10/10: Afebrile .patient tolerating CPAP trials this a.m.. False level was noted to be low replacement underway. Bowel movements x2 last night 10/11: Patient continues to tolerate CPAP trials 3-4 hours/day Glucerna tube feeds increased to 45 cc/an hour as recommended by dietitian. 10/12: Patient tolerating CPAP trials only 3-4 hours a day. Patient nodding head yes and no to questions, appears calm and comfortable. Medical status update provided to daughter at bedside. Objective Vital Signs / I&O: Vital Signs 10/11/18 17:00 10/11/18 17:41 10/11/18 18:00 Temperature Pulse Rate 98 H 97 H 97 H Respiratory Rate 11 L 20 21 Blood Pressure 126/60 138/62 135/60 Pulse Oximetry 100 100 100 10/11/18 18:41 10/11/18 19:00 10/11/18 20:00 Temperature 99.4 F Pulse Rate 99 H 95 H Respiratory Rate 31 H 16 Blood Pressure 131/65 132/62 Pulse Oximetry 100 100 100 10/11/18 20:05 10/11/18 21:00 10/11/18 22:00 Temperature Pulse Rate 93 H 94 H 111 H Respiratory Rate 16 16 Blood Pressure 134/61 138/62 Pulse Oximetry 100 99 100 10/11/18 23:00 10/12/18 00:00 10/12/18 00:04 Temperature 100 F H Pulse Rate 113 H 114 H Respiratory Rate 16 19 22 Blood Pressure 131/62 132/63 Pulse Oximetry 99 99 100 10/12/18 00:09 10/12/18 01:00 10/12/18 02:00 Temperature Pulse Rate 114 H 106 H 105 H Respiratory Rate 16 17 Blood Pressure 121/58 L 121/57 L Pulse Oximetry 99 97 10/12/18 03:00 10/12/18 03:33 10/12/18 04:00 Temperature 99.8 F H Pulse Rate 100 H 104 H Respiratory Rate 16 19 24 Blood Pressure 120/58 L 136/64 Pulse Oximetry 100 100 100 10/12/18 06:00 10/12/18 07:00 10/12/18 07:50 Temperature Pulse Rate 101 H 105 H 99 H Respiratory Rate 17 17 Blood Pressure 136/63 Pulse Oximetry 100 10/12/18 08:00 10/12/18 09:00 10/12/18 10:00 Temperature 99.3 F Pulse Rate 94 H 114 H 107 H Respiratory Rate 16 12 9 L Blood Pressure 120/58 L 129/59 L 109/53 L Pulse Oximetry 100 100 100 10/12/18 11:00 10/12/18 11:30 10/12/18 12:00 Temperature 99.6 F Pulse Rate 104 H 100 H Respiratory Rate 8 L 7 L 7 L Blood Pressure 116/57 L 112/56 L Pulse Oximetry 100 100 100 10/12/18 13:00 10/12/18 13:06 10/12/18 13:12 Temperature Pulse Rate 96 H 98 H Respiratory Rate 8 L 10 L 16 Blood Pressure 108/54 L Pulse Oximetry 100 100 10/12/18 14:00 10/12/18 16:13 Temperature Pulse Rate 110 H Respiratory Rate 16 Blood Pressure Pulse Oximetry 93 L Intake & Output 10/11/18 10/12/18 10/12/18 18:59 06:59 18:59 Intake Total 1510 / 1510 1139 / 1139 600 / 600 Output Total 650 / 650 925 / 925 Balance 860 / 860 214 / 214 600 / 600 Weight 59.6 kg Intake: IV 100 / 100 100 / 100 100 / 100 Maxipime Inj 1,000 MG In NS Inj 100 / 100 100 / 100 100 / 100 100 ML @ 200 mls/hr IV.SIG Q8H REPLACED BY [facility] Rx#:[id number] Tube Feeding 410 / 410 289 / 289 Water Bolus Amount 500 / 500 500 / 500 Free Water Amount 500 / 500 250 / 250 500 / 500 Output: Urine Amount (Catheter) 650 / 650 925 / 925 Indwelling Urethral Catheter 650 / 650 925 / 925 Other: Date of Last Bowel Movement 10/11/18 10/11/18 10/12/18 # Incontinent Bowel Movements 2 2 Result Diagrams: 10/13/18 05:23 10/13/18 05:23 Other Results: Laboratory Results WBC 6.1 th/mm3 (4.0-11.0) 10/11/18 07:32 RBC 3.57 mil/mm3 (4.00-5.30) L 10/11/18 07:32 Hgb 9.0 gm/dL (11.6-15.3) L 10/11/18 07:32 Hct 28.4 % (35.0-46.0) L 10/11/18 07:32 MCV 79.6 fL (80.0-100.0) L 10/11/18 07:32 MCH 25.2 pg (27.0-34.0) L 10/11/18 07:32 MCHC 31.6 % (32.0-36.0) L 10/11/18 07:32 RDW 20.7 % (11.6-17.2) H 10/11/18 07:32 Plt Count 265 th/mm3 (150-450) 10/11/18 07:32 MPV 8.9 fL (7.0-11.0) 10/11/18 07:32 Prelim Diff (Auto) Slide review pending 10/09/18 04:36 Neut % (Auto) 60.1 % (16.0-70.0) 10/11/18 07:32 Lymph % (Auto) 19.6 % (9.0-44.0) 10/11/18 07:32 [place] % (Auto) 9.4 % (0.0-8.0) H 10/11/18 07:32 Eos % (Auto) 10.2 % (0.0-4.0) H 10/11/18 07:32 Baso % (Auto) 0.7 % (0.0-2.0) 10/11/18 07:32 Neut # (Auto) 3.7 th/mm3 (1.8-7.7) 10/11/18 07:32 Lymph # (Auto) 1.2 th/mm3 (1.0-4.8) 10/11/18 07:32 [place] # (Auto) 0.6 th/mm3 (0.0-0.9) 10/11/18 07:32 Eos # (Auto) 0.6 th/mm3 (0.0-0.4) H 10/11/18 07:32 Baso # (Auto) 0.0 th/mm3 (0.0-0.2) 10/11/18 07:32 WBC Differential . 10/11/18 07:32 Diff Scan Auto diff confirmed 10/09/18 04:36 Seg Neuts % (Manual) 83 % (16-70) H 09/29/18 03:24 Band Neuts % (Manual) 3 % (0-6) 09/29/18 03:24 Lymphocytes % (Manual) 7 % (9-44) L 09/29/18 03:24 Monocytes % (Manual) 4 % (0-8) 09/29/18 03:24 Eosinophils % (Manual) 3 % (0-4) 09/29/18 03:24 Abs Neuts (Manual) 13.3 th/mm3 (1.8-7.7) H 09/29/18 03:24 Differential Comment Auto diff final 10/11/18 07:32 Toxic Vacuolation Present (None) H 09/29/18 03:24 Platelet Estimate Normal (Normal) 10/09/18 04:36 Platelet Morphology Enlarged (Normal) H 10/09/18 04:36 Tear Drop Cells 1+ (None) H 09/23/18 06:13 Ovalocytes 1+ (None) H 10/01/18 04:15 PT 10.2 sec (9.8-11.6) 09/19/18 04:06 INR 1.0 Ratio 09/19/18 04:06 APTT 21.7 sec (23.4-31.7) L 09/19/18 04:06 Puncture Site Left radial 09/19/18 11:07 Patient Temperature 98.6 09/19/18 11:07 O2 Saturation 96 % (90-100) 09/19/18 11:07 ABG pH 7.51 (7.380-7.420) H* 09/19/18 11:07 ABG pCO2 29 mmHg (38-42) L 09/19/18 11:07 ABG pO2 134 mmHG (61-120) H 09/19/18 11:07 ABG HCO3 22 mmol/L (22-26) 09/19/18 11:07 ABG O2 Content 11.7 Vol % (12.0-20.0) L 09/19/18 11:07 ABG Base Excess -0.3 mmol/L (-2-2) 09/19/18 11:07 ABG Methemoglobin 1.7 % (0-2) 09/19/18 11:07 Vasiliy Test Present 09/19/18 11:07 Hemoglobin 8.4 G/DL (12.0-16.0) L 09/19/18 11:07 Carboxyhemoglobin 1.1 % (0-4) 09/19/18 11:07 O2 Delivery Device Ventilator 09/19/18 11:07 Vent Setting Prvc20/500/1.0/+5 09/19/18 11:07 Inspired O2 35 % 09/19/18 11:07 Critical Value Yes 09/19/18 11:07 Sodium 140 meq/L (136-145) 10/11/18 07:32 Potassium 3.6 meq/L (3.5-5.1) 10/11/18 07:32 Chloride 106 meq/L (98-107) 10/11/18 07:32 Carbon Dioxide 28.0 meq/L (21.0-32.0) 10/11/18 07:32 Anion Gap 6 meq/L (5-15) 10/11/18 07:32 BUN 7 mg/dL (7-18) 10/11/18 07:32 Creatinine 0.54 mg/dL (0.50-1.00) 10/11/18 07:32 Estimated GFR Greater than 89 mL/min (>89) 10/11/18 07:32 POC Glucose 121 mg/dl (68-110) H 10/12/18 11:51 Random Glucose 103 mg/dL (74-106) 10/11/18 07:32 Lactic Acid 4.1 mmol/L (0.4-2.0) H* 09/19/18 04:06 Calcium 8.5 mg/dL (8.5-10.1) 10/11/18 07:32 Calcium Adj for Albumin 8.4 mg/dL (8.5-10.1) L 09/18/18 18:44 Phosphorus 2.6 mg/dL (2.5-4.9) 10/11/18 07:32 Magnesium 2.2 mg/dL (1.5-2.5) 10/11/18 07:32 Total Bilirubin 0.2 mg/dL (0.2-1.0) 10/09/18 04:36 AST 15 U/L (15-37) 10/09/18 04:36 ALT 16 U/L (10-53) 10/09/18 04:36 Alkaline Phosphatase 89 U/L (45-117) 10/09/18 04:36 Total Creatine Kinase 123 U/L (26-192) 09/21/18 11:26 Troponin I 0.12 ng/mL (0.02-0.05) H 09/18/18 18:44 Total Protein 7.5 g/dL (6.4-8.2) 10/09/18 04:36 Albumin 2.2 g/dL (3.4-5.0) L 10/09/18 04:36 Urine Color Yellow (Yellw/Straw) 10/01/18 14:20 Urine Clarity Hazy (Clear) H 10/01/18 14:20 Urine pH 5.0 (5.0-8.5) 10/01/18 14:20 Ur Specific [place] 1.024 (1.002-1.035) 10/01/18 14:20 Urine Protein 30 mg/dL (Neg-Trace) H 10/01/18 14:20 Urine Glucose (UA) Negative mg/dL (Negative) 10/01/18 14:20 Urine Ketones Negative mg/dL (Negative) 10/01/18 14:20 Urine Occult Blood Negative (Negative) 10/01/18 14:20 Urine Nitrate Negative (Negative) 10/01/18 14:20 Urine Bilirubin Negative (Negative) 10/01/18 14:20 Urine Urobilinogen Less than 2 mg/dL (Less than 2) 10/01/18 14:20 Ur Leukocyte Esterase Trace (Negative) H 10/01/18 14:20 Urine RBC Less than 1 /hpf (0-3) 09/28/18 15:30 Urine WBC 4 /hpf (0-5) 10/01/18 14:20 Urine WBC Clumps Many (None) H 09/18/18 18:35 Ur Squamous Epith Cells <1 /hpf (0-5) 10/01/18 14:20 Triple Phos Crystals Many /hpf (None) H 09/18/18 18:35 Urine Bacteria Moderate /hpf (None) H 09/18/18 18:35 Hyaline Casts 1 /lpf (0-3) 09/28/18 15:30 Granular Casts 1 /lpf (None) 10/01/18 14:20 Urine Mucus Few /lpf (Occasional) H 10/01/18 14:20 Micro UA Comment Culture indicated 09/28/18 15:30 Ur Microscopic Review Not Reportable 10/01/18 14:20 Urine Culture Comments Culture indicated 09/28/18 15:30 Nasal Screen MRSA (PCR) Not detected (Negative) 09/18/18 22:46 Stl C.difficile DNA Amp Negative (Negative) 10/01/18 16:10 St C. diff Tox Epid 027 Negative (Negative) 10/01/18 16:10 Vancomycin Trough 11.2 mcg/mL (5.0-10.0) H 10/05/18 11:49 Random Vancomycin 19.5 Comment 09/26/18 14:26 Blood Type B Positive 09/29/18 03:30 Blood Type Recheck Required 09/29/18 03:30 Antibody Screen Negative 09/29/18 03:30 MTS Gel Crossmatch See Detail 10/01/18 03:[address] 09/18/18 18:40 CONCLUSION: 1. Stable appearance of the brain. Marked ventriculomegaly and white matter disease. . Chest CTA 09/18/18 19:26 CONCLUSION: 1. There is no evidence for pulmonary embolism. 2. Severe emphysema. 3. There is a large soft tissue mass in the right lower lobe suspicious for malignancy until proven otherwise. Venous Doppler Study 10/01/18 00:00 CONCLUSION: 1. Superficial venous thrombosis identified in the right cephalic vein. 2. No evidence of DVT. Abdomen/Pelvis CT 10/03/18 07:26 CONCLUSION: 1. There is air and fluid identified within the stomach which may account for the patient's perceived distention. No evidence of bowel obstruction or ileus. 2. Extensive atherosclerosis. 3. Persistent right lower lobe airspace consolidation. Abdomen X-Ray 10/08/18 09:15 CONCLUSION: No acute findings Chest X-Ray 10/10/18 04:00 CONCLUSION: 1. No significant interval change. 2. Stable parenchymal opacity in the right mid to lower lung zones. Objective Remarks: GENERAL: Well-nourished, well-developed patient female appearing older than stated age resting comfortably, nodding head to yes and no questions SKIN: Warm and dry. HEAD: Atraumatic. Normocephalic. EYES: Pupils equal and round. No scleral icterus. No injection or drainage. ENT: No nasal bleeding or discharge. Mucous membranes pink and moist. NECK: Tracheostomy in place, slight pink tinge to secretions, no active bleeding. CARDIOVASCULAR: S1S2 normal, No murmurs rubs or gallops. RESPIRATORY: Tracheostomy 8.0 [place] in situ, currently on CPAP trials B/L equal air entry GASTROINTESTINAL: Abdomen soft, non-tender,distended. PEG in place, MUSCULOSKELETAL: Extremities without clubbing, cyanosis, 1+ peripheral edema bilateral upper extremity. s/p L AKA. NEUROLOGICAL: Awakens, looks around. Blinks and squeezes hand to command Assessment and Plan - Assessment and Plan Plan: NEURO: History of stroke Off sedation. Monitor neuro status Avoid sedatives RESP: Acute respiratory failure on mechanical ventilation Emphysema Lung mass History of prior trach after stroke, has been subsequently decannulated Per Dr. De Jesus. not wishing to pursue CT-guided biopsy. Continue with vent support Daily CPAP trials. Vent bundle/nebs. Percutaneous tracheostomy performed at bedside 09/29. Pulm toilet, trach care CV: HTN Monitor BP/heart rate keep MAP>65mmHg. On Cardizem 30mg q6 with hold orders. GI: PEG in place. On Glucerna 1.5 @ 45ml/hr KUB abdomen 10/02 Normal bowel gas pattern. CT abd/pelvis 10/03: No evidence of bowel obstruction or ileus. Clinically no evidence of PEG tube malfunction dislodgment FEN/RENAL: Acute hypernatremia- resolved Monitor renal function, I/O's, electrolytes replacement per protocol. Free water 250ml Q8, ID: HCAP UTI Urine culture from 09/18 with providentia and Proteus. BC 10/01: NGTD sputum cx 09/28 and 10/03 : No growth On abx Cefepime and Vanco, d/c Vanco, monitor for signs of infections ( Fever, WBC) C-diff PCR negative on 10/01 HEME: R brachial DVT Anemia Lovenox 60 mg subcu every 12 hours. s/p Transfuse 2u PRBC 10/01 GI is following for EGD/Colonoscopy today Hemoglobin stable ENDO: Diabetes mellitus Insulin sliding scale Glucose monitoring per ICU protocol PROPH: SCD/Lovenox for DVT prophylaxis. Protonix 40mg Q12 for stress ulcer prophylaxis. 10/01 Doppler US UE b/l: Superficial venous thrombosis identified in the right cephalic vein. No evidence of DVT. 09/21 Doppler US RUE: Occlusive thrombus cephalic and brachial veins ACCESS: PIV x2. Full code Level 3 follow-up Planned transfer to LTAC when bed available Code Status: Full Discussed Condition With: Daughter at bedside. [employer] at bedside.
--- NOTE | 2018-10-12 17:05 | P.PNGI ---
Subjective Interval history: Patient on CPAP Physical Exam Vital signs: Vital Signs 10/11/18 17:41 10/11/18 18:00 10/11/18 18:41 Temperature Pulse Rate 97 H 97 H Respiratory Rate 20 21 Blood Pressure 138/62 135/60 Pulse Oximetry 100 100 100 10/11/18 19:00 10/11/18 20:00 10/11/18 20:05 Temperature 99.4 F Pulse Rate 99 H 95 H 93 H Respiratory Rate 31 H 16 16 Blood Pressure 131/65 132/62 Pulse Oximetry 100 100 100 10/11/18 21:00 10/11/18 22:00 10/11/18 23:00 Temperature Pulse Rate 94 H 111 H 113 H Respiratory Rate 16 16 Blood Pressure 134/61 138/62 131/62 Pulse Oximetry 99 100 99 10/12/18 00:00 10/12/18 00:04 10/12/18 00:09 Temperature 100 F H Pulse Rate 114 H 114 H Respiratory Rate 19 22 Blood Pressure 132/63 Pulse Oximetry 99 100 10/12/18 01:00 10/12/18 02:00 10/12/18 03:00 Temperature Pulse Rate 106 H 105 H 100 H Respiratory Rate 16 17 16 Blood Pressure 121/58 L 121/57 L 120/58 L Pulse Oximetry 99 97 100 10/12/18 03:33 10/12/18 04:00 10/12/18 06:00 Temperature 99.8 F H Pulse Rate 104 H 101 H Respiratory Rate 19 24 Blood Pressure 136/64 Pulse Oximetry 100 100 10/12/18 07:00 10/12/18 07:50 10/12/18 08:00 Temperature 99.3 F Pulse Rate 105 H 99 H 94 H Respiratory Rate 17 17 16 Blood Pressure 136/63 120/58 L Pulse Oximetry 100 100 10/12/18 09:00 10/12/18 10:00 10/12/18 11:00 Temperature Pulse Rate 114 H 107 H 104 H Respiratory Rate 12 9 L 8 L Blood Pressure 129/59 L 109/53 L 116/57 L Pulse Oximetry 100 100 100 10/12/18 11:30 10/12/18 12:00 10/12/18 13:00 Temperature 99.6 F Pulse Rate 100 H 96 H Respiratory Rate 7 L 7 L 8 L Blood Pressure 112/56 L 108/54 L Pulse Oximetry 100 100 100 10/12/18 13:06 10/12/18 13:12 10/12/18 14:00 Temperature Pulse Rate 98 H 110 H Respiratory Rate 10 L 16 Blood Pressure Pulse Oximetry 100 10/12/18 16:13 Temperature Pulse Rate Respiratory Rate 16 Blood Pressure Pulse Oximetry 93 L Intake & Output 10/11/18 10/12/18 10/12/18 18:59 06:59 18:59 Intake Total 1510 / 1510 1139 / 1139 600 / 600 Output Total 650 / 650 925 / 925 Balance 860 / 860 214 / 214 600 / 600 Weight 59.6 kg Intake: IV 100 / 100 100 / 100 100 / 100 Maxipime Inj 1,000 MG In NS Inj 100 / 100 100 / 100 100 / 100 100 ML @ 200 mls/hr IV.SIG Q8H JORGE Rx#:[id number] Tube Feeding 410 / 410 289 / 289 Water Bolus Amount 500 / 500 500 / 500 Free Water Amount 500 / 500 250 / 250 500 / 500 Output: Urine Amount (Catheter) 650 / 650 925 / 925 Indwelling Urethral Catheter 650 / 650 925 / 925 Other: Date of Last Bowel Movement 10/11/18 10/11/18 10/12/18 # Incontinent Bowel Movements 2 2 - Constitutional no acute distress - Routine HEENT Exam Head: Present: normocephalic - Routine Neck Exam Present: supple - Routine Respiratory Exam Present: distant breath sounds Comments: On CPAP machine - Routine Cardiovascular Exam Present: RRR, S1, S2 - Routine Abdominal Exam Present: soft, normoactive bowel sounds. Absent: tenderness, distended - Routine Neurological Exam Present: alert Opens eyes when name is called - Detailed Neurological Exam: Coma Scale Eye Opening: Spontaneous - Urinary Catheter Management Indwelling Temp Sensing Catheter Cath placed during this visit: yes, but has since been removed by the nurse Reason for continuing: Severe pressure ulcer/wound Insertion date: 09/18/18 Insertion time: 18:50 Removal date: 09/23/18 Removal time: 16:00 Female External Cath placed during this visit: no Reason for continuing: Severe pressure ulcer/wound Straight Cath placed during this visit: no Indwelling Urethral Catheter Cath placed during this visit: yes Reason for continuing: Severe pressure ulcer/wound Insertion date: 10/07/18 Insertion time: 10:00 Results - Labs CBC & Chem 7: 10/11/18 07:32 10/11/18 07:32 Laboratory Results - last 24 hr 10/11/18 10/11/18 10/12/18 18:26 23:44 06:11 POC Glucose 114 H 112 H 117 H 10/12/18 11:51 POC Glucose 121 H Assessment and Plan (1) Anemia Status: Acute Code(s): D64.9 - Anemia, unspecified (2) Respiratory failure Status: Acute Code(s): J96.90 - Respiratory failure, unspecified, unspecified whether with hypoxia or hypercapnia (3) PEG (percutaneous endoscopic gastrostomy) adjustment/replacement/removal Status: Acute Code(s): Z43.1 - Encounter for attention to gastrostomy (4) Leaking PEG tube Status: Acute Code(s): K94.23 - Gastrostomy malfunction - Plan This patient is a 68-year-old female with past medical history significant for CVA, left AKA, acute respiratory failure, diabetes, dysphagia, hypertension, hemiparesis, hemiplegia and hypoxia. Surgical history significant for PEG tube placement, tracheostomy and left above-knee amputation. Patient presented to [facility] emergency room via EMS for reported hypoxemia. Of note, patient was on home hospice prior to arrival. Upon arrival, patient was intubated by ER attending for protection of airway. Our service has been consulted to evaluate patient for worsening anemia requiring blood transfusion. Patient is currently being cared for in the critical care setting post tracheostomy placement, patient mechanically ventilated. Temperature 101.5 this a.m. sinus tach on survey worker. Patient presently having loose watery stools, dignity shield applied with noted liquid brown stool present. ICU nurse reports no obvious noted bleeding. Hemoglobin 6.7 hematocrit 23.9. Patient currently receiving 1st of 2 units of packed RBCs for transfusion. Upon exam, estimated 5 x 5 cm hematoma to the left lower quadrant of abdomen. Left upper extremity phlebitis noted. Patient currently receiving Lovenox 60 mg subcutaneously every 12 hours. Anemia-requiring blood transfusion- Microcytic anemia christina chronic 68-year-old female admitted to [facility] for hypoxemia mental status changes. Patient intubated upon arrival. Our service has been consulted for worsening anemia now requiring blood transfusion of 2 units packed RBCs. There have been no obvious signs of bleeding reported. Patient presently trach and ventilated FiO2 35%. PEG tube with Glucerna at 60 mL's per hour. Abdomen soft with bowel sounds present, ~5 x 5 cm hematoma left lower quadrant. Patient currently receiving Lovenox 60 mg subcutaneous every 12 hours. -Hemoglobin 6.7 hematocrit 23.9 WBC 11.7 platelet count 242 -Total bilirubin 0.3 AST 18 ALT 25 alk phos 103 10/02/2018 Patient awake and alert Nonverbal Mechanically ventilated via trach-on no sedation No reported or active bleeding noted-hemoglobin 9.7 hematocrit 30.9 from 10.3 and 32.7 Slight rising BUN with stable creatinine may be indicative of upper GI bleeding possible dilated specimen value 6.7 on 10/01/2018 Dignity shield noted liquid brown stool present KUB: Persistent airspace consolidation involving the right lower lobe. Abdominal bowel gas pattern is normal. Nurse reports no PEG tube feeding residuals 10/03/2018 Patient resting soundly with eyes closed Mechanically ventilated via trach on no sedation No reported bleeding 8.8 hemoglobin 9.5 hematocrit 30.4 No enteric pathogens or WBCs noted on final report for stool studies Plan -Hold tube feedings after midnight 10/04/2018 -Monitor for active bleeding -Plan of care per critical care medicine -Monitor hemoglobin and hematocrit closely -Transfuse as needed -Pantoprazole 40 mg IV every 12 -Palliative following -Stool studies pending-Cryptosporidium and Giardia -Obtain consent for EGD and colonoscopy (planning for 10/04/2018) -GoLYTELY prep (10/03/2018 @ 1600) -Supportive care -Further recommendations to follow 10/05/2018 Patient remains intubated Status post EGD colonoscopy 10/04/2018-findings of chronic gastritis no distinct source of bleeding identified on upper or lower endoscopy Assessment Chronic anemia Acute respiratory failure Hemoglobin 8.7 hematocrit 28 platelet 255 INR 1 CMP is pending Stool studies were all negative for C. difficile, WBCs stool, enteric pathogens PCR, leptospiral odium antigen, and Giardia antigen. 10/07/2018 Nausea vomiting Patient evaluated due to reported nausea and vomiting tube feeding this a.m. ICU nurse reports 40 mL residual gastric content mucoid, scant amount of possible tube feeding around PEG tube site No noted bleeding Abdomen mildly distended with bowel sounds present 10/08/2018 Assessment -patient's PEG tube was leaking overnight per ICU nurse, adjustment was done by the GI team, PEG tube was patent on aspiration with residual. Can resume tube feeding at 30 cc an hour. Monitor for leakage. 10/12/2018 Assessment Respiratory failure -patient is getting better now on CPAP Chronic gastritis Anemia chronic disease PEG tube for long-term use -functional Plan -Continue tube feedings per dietitian's recommendation -Flush PEG tube and dressing care per protocol -Apply a pillow between patient's left arm and the device to avoid pulling PEG -Monitor for active bleeding -Monitor labs -Continue PPI -Supportive care -GI will signed off reconsult as needed. This patient has been seen by myself and Dr. Hinkle and this note is written on his behalf - Attending Attestation Dr. Perez
--- NOTE | 2018-10-12 19:37 | P.PNPL ---
Subjective Interval history: 68 YOAA female who was with Hospice svc, now rescended Tolerated CPAP 4 hrs back on Vent off sedation Tolerates TF Physical Exam Vital signs: Vital Signs 10/11/18 20:00 10/11/18 20:05 10/11/18 21:00 Temperature 99.4 F Pulse Rate 95 H 93 H 94 H Respiratory Rate 16 16 16 Blood Pressure 132/62 134/61 Pulse Oximetry 100 100 99 10/11/18 22:00 10/11/18 23:00 10/12/18 00:00 Temperature 100 F H Pulse Rate 111 H 113 H 114 H Respiratory Rate 16 19 Blood Pressure 138/62 131/62 132/63 Pulse Oximetry 100 99 99 10/12/18 00:04 10/12/18 00:09 10/12/18 01:00 Temperature Pulse Rate 114 H 106 H Respiratory Rate 22 16 Blood Pressure 121/58 L Pulse Oximetry 100 99 10/12/18 02:00 10/12/18 03:00 10/12/18 03:33 Temperature Pulse Rate 105 H 100 H Respiratory Rate 17 16 19 Blood Pressure 121/57 L 120/58 L Pulse Oximetry 97 100 100 10/12/18 04:00 10/12/18 06:00 10/12/18 07:00 Temperature 99.8 F H Pulse Rate 104 H 101 H 105 H Respiratory Rate 24 17 Blood Pressure 136/64 136/63 Pulse Oximetry 100 100 10/12/18 07:50 10/12/18 08:00 10/12/18 09:00 Temperature 99.3 F Pulse Rate 99 H 94 H 114 H Respiratory Rate 17 16 12 Blood Pressure 120/58 L 129/59 L Pulse Oximetry 100 100 10/12/18 10:00 10/12/18 11:00 10/12/18 11:30 Temperature Pulse Rate 107 H 104 H Respiratory Rate 9 L 8 L 7 L Blood Pressure 109/53 L 116/57 L Pulse Oximetry 100 100 100 10/12/18 12:00 10/12/18 13:00 10/12/18 13:06 Temperature 99.6 F Pulse Rate 100 H 96 H 98 H Respiratory Rate 7 L 8 L 10 L Blood Pressure 112/56 L 108/54 L Pulse Oximetry 100 100 10/12/18 13:12 10/12/18 14:00 10/12/18 15:00 Temperature Pulse Rate 110 H 104 H Respiratory Rate 16 23 16 Blood Pressure 106/71 113/56 L Pulse Oximetry 100 98 100 10/12/18 16:00 10/12/18 16:13 10/12/18 17:00 Temperature 99.4 F Pulse Rate 100 H 104 H Respiratory Rate 16 16 20 Blood Pressure 117/57 L 124/59 L Pulse Oximetry 100 93 L 100 10/12/18 18:00 Temperature Pulse Rate 101 H Respiratory Rate 18 Blood Pressure 132/60 Pulse Oximetry 100 Intake & Output 10/12/18 10/12/18 10/13/18 06:59 18:59 06:59 Intake Total 1139 / 1139 1851 / 1851 Output Total 925 / 925 800 / 800 Balance 214 / 214 1051 / 1051 Weight 59.6 kg Intake: IV 100 / 100 200 / 200 Maxipime Inj 1,000 MG In NS Inj 100 / 100 200 / 200 100 ML @ 200 mls/hr IV.SIG Q8H JORGE Rx#:[id number] Tube Feeding 289 / 289 401 / 401 Water Bolus Amount 500 / 500 750 / 750 Free Water Amount 250 / 250 500 / 500 Output: Urine Amount (Catheter) 925 / 925 800 / 800 Indwelling Urethral Catheter 925 / 925 800 / 800 Other: Date of Last Bowel Movement 10/11/18 10/12/18 # Incontinent Bowel Movements 2 2 GENERAL: Elderly female on vent SKIN: Warm and dry. HEAD: Normocephalic. EYES: No scleral icterus. No injection or drainage. NECK: Supple, trachea midline. No JVD or lymphadenopathy. Has Trach CARDIOVASCULAR: Regular rate and rhythm without murmurs, gallops, or rubs. RESPIRATORY: Breath sounds equal bilaterally. No accessory muscle use. GASTROINTESTINAL: Abdomen soft, non-tender, nondistended. MUSCULOSKELETAL: No cyanosis, or edema. Left AKA BACK: Nontender without obvious deformity. No CVA tenderness. - Urinary Catheter Management Indwelling Temp Sensing Catheter Cath placed during this visit: yes, but has since been removed by the nurse Reason for continuing: Severe pressure ulcer/wound Insertion date: 09/18/18 Insertion time: 18:50 Removal date: 09/23/18 Removal time: 16:00 Female External Cath placed during this visit: no Reason for continuing: Severe pressure ulcer/wound Straight Cath placed during this visit: no Indwelling Urethral Catheter Cath placed during this visit: yes Reason for continuing: Severe pressure ulcer/wound Insertion date: 10/07/18 Insertion time: 10:00 Assessment and Plan - Plan IMPRESSION: VDRF large Rt lung mass COPD HTN H/O CVA PLAN: Cont Vent CPAP trial daily Aerosol nebs Cont Abx Trach care. Tube feeding DC plans for [employer]. DW Daughter at .
[2018-10-13] MEDS: dilTIAZem 30 MG Tablet PO SCH ×4 (06:19→21:34)
[2018-10-13] MEDS: Chlorhexidine 0.12% Oral Kit 15 ML UDC OROPHARYNG SCH ×3 (06:19→20:20)
[2018-10-13] MEDS: Oral Hygiene Kit OROPHARYNG SCH ×4 (06:19→23:06)
[2018-10-13] MEDS: Insulin NovoLIN Regular Correctional Sugar Inj SQ SCH ×4 (06:20→19:15)
[2018-10-13 06:22] LABS: Baso % (Auto) 0.7 % (0.0-2.0); Eos # (Auto) 0.4 th/mm3 (0.0-0.4); Eos % (Auto) 7.8 % (0.0-4.0); Hematocrit 29.1 % (35.0-46.0); Hemoglobin 9.3 gm/dL (11.6-15.3); Lymph % (Auto) 17.3 % (9.0-44.0); Mean Corpuscular Hemoglobin 25.5 pg (27.0-34.0); Mean Corpuscular Volume 79.6 fL (80.0-100.0); Mean Platelet Volume 8.8 fL (7.0-11.0); Mono # (Auto) 0.6 th/mm3 (0.0-0.9); Mono % (Auto) 11.3 % (0.0-8.0); Neut # (Auto) 3.5 th/mm3 (1.8-7.7); Neut % (Auto) 62.9 % (16.0-70.0); Platelet Count 283 th/mm3 (150-450); Red Blood Count 3.66 mil/mm3 (4.00-5.30); Red Cell Distribution Width 20.7 % (11.6-17.2); White Blood Count 5.6 th/mm3 (4.0-11.0)
[2018-10-13 06:42] LABS: Anion Gap 5 meq/L (5-15); Blood Urea Nitrogen 9 mg/dL (7-18); Calcium 8.6 mg/dL (8.5-10.1); Carbon Dioxide 30.7 meq/L (21.0-32.0); Chloride 107 meq/L (98-107); Glomerular Filtration Rate Greater Than 89 mL/min (>89); Glucose,Random 111 mg/dL (74-106); Sodium 143 meq/L (136-145)
[2018-10-13] MEDS: Senna/Docusate Sodium 8.6/50 MG Tablet PO SCH ×2 (09:08→21:34)
[2018-10-13] MEDS: Enoxaparin Inj 60 MG/0.6 ML Syringe SQ SCH ×2 (09:08→21:34)
--- NOTE | 2018-10-13 11:52 | P.PNCC ---
Subjective Subjective Remarks/Hospital Course: 09/18: 68-year-old female past medical history of stroke, left BKA, who was on home hospice until just prior to arrival, presents for an evaluation of fever and altered mental status. According to EMS the patient had not required oxygen until beginning of this week when she had gradual increased demand of her oxygen. End-tidal CO2 prior to arrival was 6. Initial room nasal cannula saturation was 91, she was placed on nonrebreather position of comfort and transfer to emergency department. EMS related that the had elected to revoke the patient's DNR and hospice care prior to transferring her to the hospital. The patient apparently is normally a GCS of 14, apparently she does take some thickened food p.o. department the patient was severely altered with GCS of 6 on arrival [id number] and was intubated by ED attending for an airway protection. 09/19: Remains sedated, orally intubated on mechanical ventilation. CT chest showed right lower lobe lung mass suspicious for malignancy. Patient has a PEG tube following previous stroke. 09/20: Remains sedated, orally intubated on mechanical ventilation. Started on tube feeds. 09/21: Remains sedated, orally intubated on mechanical ventilation. Tolerating tube feeds. Right approximately swelling noted. 09/22 Is not tolerating CPAP trial when decrease PS below 18. Daughter at bedside, says will be here later. Says they don't think they want to proceed with lung biopsy at this time, but on the other hand she discusses the possibility of re-do trach. She says they are not sure how to proceed. I suggested we meet together. Daughter states she has been bedridden since stroke about 4 years ago. Has been in correction. PEG due to dysphagia, does not eat. Speaks a little but daughter states she has declined significantly over the last 2 weeks. 09/23 No significant change. Patient does not tolerate CPAP. Family is very clear that they do not wish to pursue biopsy or diagnosis of suspected lung cancer. At this time, they wish to continue supportive care with vent and FULL CODE. 09/24 No change. Does not tolerate CPAP. Will diurese for positive fluid balance. 09/25 Now on CPAP 20/5 and not tolerating wean. Continue attempts at diuresis to address positive fluid balance since admission 09/26: Remains sedated, orally intubated on mechanical ventilation. Hold CPAP trials yesterday 09/27 Patient is sedated with Diprivan and intubated. Tolerating tube feeds. Afebrile. 09/28 Patient remains intubated and sedated. T;100.8 09/29 Has not made any progress towards weaning. Family offered comfort measures however they expressed desire to proceed with trach Subjective: 09/30 status post bedside tracheostomy yesterday by Dr. Gavin. Discontinued propofol drip. On CPAP 14/5 for 2 hours today. BP is low, will need to hold metoprolol and titrate back on cardizem (nurses held some doses yesterday too). Positive fluid balance but not able to diurese today due to low BP. Awaiting bed at [facility]. 10/01 Patient remains on ventilator via trach. On no sedation. Hgb 6.7 this morning and T: 100.4 at midnight. Tachycardic. 10/02 Patient is on ventilator via trach. On no sedation. Spiked fever with T: 101.5. s/p transfusion 2u PRBC yesterday. Mcmillan/thick secretions noted per nursing staff. 10/03 Patient had low grade fever with T:100.4 last night. Tube feeds held for abd distention. KUB yesterday showed normal bowel gas pattern. 10/04 Patient is on ventilator via trach. For panendoscopy today. T:99.8 last night. 10/05 Patient is on ventilator via trach, on no drips. s/p panendoscopy yesterday showed chronic gastritis with no source of bleeding identified on upper or lower endoscopy. Afebrile. 10/06 Patient remains on ventilator via trach. T:99.9 yesterday 10/07: Remains on the vent continues to fail CPAP trials due to tachypnea. No nausea vomiting overnight currently resolved. Chest tube had been restarted. Low-grade fever 100.6 10/08: Continues to fail CPAP trials. However on vent support appears comfortable. Daughter at the bedside updated. No fever today 10/09: No acute changes overnight. The patient continues to fail CPAP. Patient tolerating tube feeds. 10/10: Afebrile .patient tolerating CPAP trials this a.m.. False level was noted to be low replacement underway. Bowel movements x2 last night 10/11: Patient continues to tolerate CPAP trials 3-4 hours/day Glucerna tube feeds increased to 45 cc/an hour as recommended by dietitian. 10/12: Patient tolerating CPAP trials only 3-4 hours a day. Patient nodding head yes and no to questions, appears calm and comfortable. Medical status update provided to daughter at bedside. 10/13: Patient was noted to have cuff leak, trach ties then positioned appropriately, with resolution of cuff leak. Patient tolerating tube feeds. Continues on CPAP trials. Objective Vital Signs / I&O: Vital Signs 10/12/18 12:00 10/12/18 13:00 10/12/18 13:06 Temperature 99.6 F Pulse Rate 100 H 96 H 98 H Respiratory Rate 7 L 8 L 10 L Blood Pressure 112/56 L 108/54 L Pulse Oximetry 100 100 10/12/18 13:12 10/12/18 14:00 10/12/18 15:00 Temperature Pulse Rate 110 H 104 H Respiratory Rate 16 23 16 Blood Pressure 106/71 113/56 L Pulse Oximetry 100 98 100 10/12/18 16:00 10/12/18 16:13 10/12/18 17:00 Temperature 99.4 F Pulse Rate 100 H 104 H Respiratory Rate 16 16 20 Blood Pressure 117/57 L 124/59 L Pulse Oximetry 100 93 L 100 10/12/18 18:00 10/12/18 19:00 10/12/18 19:23 Temperature Pulse Rate 101 H 102 H Respiratory Rate 18 17 16 Blood Pressure 132/60 129/60 Pulse Oximetry 100 100 100 10/12/18 19:26 10/12/18 20:00 10/12/18 21:00 Temperature 99.3 F Pulse Rate 104 H 112 H 117 H Respiratory Rate 16 17 17 Blood Pressure 119/58 L 119/56 L Pulse Oximetry 99 99 10/12/18 22:00 10/12/18 23:00 10/13/18 00:00 Temperature Pulse Rate 109 H 98 H 114 H Respiratory Rate 16 16 17 Blood Pressure 118/57 L 116/56 L 122/57 L Pulse Oximetry 100 100 100 10/13/18 00:10 10/13/18 01:00 10/13/18 02:00 Temperature Pulse Rate 114 H 110 H Respiratory Rate 23 16 17 Blood Pressure 115/58 L 124/61 Pulse Oximetry 100 98 100 10/13/18 03:00 10/13/18 03:37 10/13/18 04:00 Temperature Pulse Rate 112 H 112 H Respiratory Rate 20 16 18 Blood Pressure 135/63 130/60 Pulse Oximetry 100 100 100 10/13/18 05:00 10/13/18 06:00 10/13/18 06:16 Temperature Pulse Rate 114 H 108 H 117 H Respiratory Rate 26 H 20 39 H Blood Pressure 138/63 168/77 H Pulse Oximetry 98 100 98 10/13/18 07:39 10/13/18 08:00 10/13/18 10:00 Temperature 99.1 F Pulse Rate 105 H 105 H 97 H Respiratory Rate 12 16 Blood Pressure 123/58 L Pulse Oximetry 100 99 Intake & Output 10/12/18 10/13/18 10/13/18 18:59 06:59 18:59 Intake Total 1851 / 1851 4051 / 4051 350 / 350 Output Total 800 / 800 2300 / 2300 Balance 1051 / 1051 1751 / 1751 350 / 350 Weight 87 kg Intake: IV 200 / 200 100 / 100 100 / 100 Maxipime Inj 1,000 MG In NS Inj 200 / 200 100 / 100 100 / 100 100 ML @ 200 mls/hr IV.SIG Q8H [facility] Rx#:[id number] Tube Feeding 401 / 401 907 / 907 Water Bolus Amount 750 / 750 450 / 450 Free Water Amount 500 / 500 250 / 250 250 / 250 Other 2344 / 2344 Output: Urine Amount (Catheter) 800 / 800 2300 / 2300 Indwelling Urethral Catheter 800 / 800 2300 / 2300 Other: Date of Last Bowel Movement 10/12/18 10/12/18 10/12/18 # Incontinent Bowel Movements 2 Result Diagrams: 10/13/18 05:23 10/13/18 05:23 Other Results: Laboratory Results WBC 5.6 th/mm3 (4.0-11.0) 10/13/18 05:23 RBC 3.66 mil/mm3 (4.00-5.30) L 10/13/18 05:23 Hgb 9.3 gm/dL (11.6-15.3) L 10/13/18 05:23 Hct 29.1 % (35.0-46.0) L 10/13/18 05:23 MCV 79.6 fL (80.0-100.0) L 10/13/18 05:23 MCH 25.5 pg (27.0-34.0) L 10/13/18 05:23 MCHC 32.0 % (32.0-36.0) 10/13/18 05:23 RDW 20.7 % (11.6-17.2) H 10/13/18 05:23 Plt Count 283 th/mm3 (150-450) 10/13/18 05:23 MPV 8.8 fL (7.0-11.0) 10/13/18 05:23 Prelim Diff (Auto) Slide review pending 10/09/18 04:36 Neut % (Auto) 62.9 % (16.0-70.0) 10/13/18 05:23 Lymph % (Auto) 17.3 % (9.0-44.0) 10/13/18 05:23 Lewis % (Auto) 11.3 % (0.0-8.0) H 10/13/18 05:23 Eos % (Auto) 7.8 % (0.0-4.0) H 10/13/18 05:23 Baso % (Auto) 0.7 % (0.0-2.0) 10/13/18 05:23 Neut # (Auto) 3.5 th/mm3 (1.8-7.7) 10/13/18 05:23 Lymph # (Auto) 1.0 th/mm3 (1.0-4.8) 10/13/18 05:23 Lewis # (Auto) 0.6 th/mm3 (0.0-0.9) 10/13/18 05:23 Eos # (Auto) 0.4 th/mm3 (0.0-0.4) 10/13/18 05:23 Baso # (Auto) 0.0 th/mm3 (0.0-0.2) 10/13/18 05:23 WBC Differential . 10/13/18 05:23 Diff Scan Auto diff confirmed 10/09/18 04:36 Seg Neuts % (Manual) 83 % (16-70) H 09/29/18 03:24 Band Neuts % (Manual) 3 % (0-6) 09/29/18 03:24 Lymphocytes % (Manual) 7 % (9-44) L 09/29/18 03:24 Monocytes % (Manual) 4 % (0-8) 09/29/18 03:24 Eosinophils % (Manual) 3 % (0-4) 09/29/18 03:24 Abs Neuts (Manual) 13.3 th/mm3 (1.8-7.7) H 09/29/18 03:24 Differential Comment Auto diff final 10/13/18 05:23 Toxic Vacuolation Present (None) H 09/29/18 03:24 Platelet Estimate Normal (Normal) 10/09/18 04:36 Platelet Morphology Enlarged (Normal) H 10/09/18 04:36 Tear Drop Cells 1+ (None) H 09/23/18 06:13 Ovalocytes 1+ (None) H 10/01/18 04:15 PT 10.2 sec (9.8-11.6) 09/19/18 04:06 INR 1.0 Ratio 09/19/18 04:06 APTT 21.7 sec (23.4-31.7) L 09/19/18 04:06 Puncture Site Left radial 09/19/18 11:07 Patient Temperature 98.6 09/19/18 11:07 O2 Saturation 96 % (90-100) 09/19/18 11:07 ABG pH 7.51 (7.380-7.420) H* 09/19/18 11:07 ABG pCO2 29 mmHg (38-42) L 09/19/18 11:07 ABG pO2 134 mmHG (61-120) H 09/19/18 11:07 ABG HCO3 22 mmol/L (22-26) 09/19/18 11:07 ABG O2 Content 11.7 Vol % (12.0-20.0) L 09/19/18 11:07 ABG Base Excess -0.3 mmol/L (-2-2) 09/19/18 11:07 ABG Methemoglobin 1.7 % (0-2) 09/19/18 11:07 Vasiliy Test Present 09/19/18 11:07 Hemoglobin 8.4 G/DL (12.0-16.0) L 09/19/18 11:07 Carboxyhemoglobin 1.1 % (0-4) 09/19/18 11:07 O2 Delivery Device Ventilator 09/19/18 11:07 Vent Setting Prvc20/500/1.0/+5 09/19/18 11:07 Inspired O2 35 % 09/19/18 11:07 Critical Value Yes 09/19/18 11:07 Sodium 143 meq/L (136-145) 10/13/18 05:23 Potassium 4.0 meq/L (3.5-5.1) 10/13/18 05:23 Chloride 107 meq/L (98-107) 10/13/18 05:23 Carbon Dioxide 30.7 meq/L (21.0-32.0) 10/13/18 05:23 Anion Gap 5 meq/L (5-15) 10/13/18 05:23 BUN 9 mg/dL (7-18) 10/13/18 05:23 Creatinine 0.60 mg/dL (0.50-1.00) 10/13/18 05:23 Estimated GFR Greater than 89 mL/min (>89) 10/13/18 05:23 POC Glucose 115 mg/dl (68-110) H 10/12/18 23:34 Random Glucose 111 mg/dL (74-106) H 10/13/18 05:23 Lactic Acid 4.1 mmol/L (0.4-2.0) H* 09/19/18 04:06 Calcium 8.6 mg/dL (8.5-10.1) 10/13/18 05:23 Calcium Adj for Albumin 8.4 mg/dL (8.5-10.1) L 09/18/18 18:44 Phosphorus 2.6 mg/dL (2.5-4.9) 10/11/18 07:32 Magnesium 2.2 mg/dL (1.5-2.5) 10/11/18 07:32 Total Bilirubin 0.2 mg/dL (0.2-1.0) 10/09/18 04:36 AST 15 U/L (15-37) 10/09/18 04:36 ALT 16 U/L (10-53) 10/09/18 04:36 Alkaline Phosphatase 89 U/L (45-117) 10/09/18 04:36 Total Creatine Kinase 123 U/L (26-192) 09/21/18 11:26 Troponin I 0.12 ng/mL (0.02-0.05) H 09/18/18 18:44 Total Protein 7.5 g/dL (6.4-8.2) 10/09/18 04:36 Albumin 2.2 g/dL (3.4-5.0) L 10/09/18 04:36 Urine Color Yellow (Yellw/Straw) 10/01/18 14:20 Urine Clarity Hazy (Clear) H 10/01/18 14:20 Urine pH 5.0 (5.0-8.5) 10/01/18 14:20 Ur Specific [place] 1.024 (1.002-1.035) 10/01/18 14:20 Urine Protein 30 mg/dL (Neg-Trace) H 10/01/18 14:20 Urine Glucose (UA) Negative mg/dL (Negative) 10/01/18 14:20 Urine Ketones Negative mg/dL (Negative) 10/01/18 14:20 Urine Occult Blood Negative (Negative) 10/01/18 14:20 Urine Nitrate Negative (Negative) 10/01/18 14:20 Urine Bilirubin Negative (Negative) 10/01/18 14:20 Urine Urobilinogen Less than 2 mg/dL (Less than 2) 10/01/18 14:20 Ur Leukocyte Esterase Trace (Negative) H 10/01/18 14:20 Urine RBC Less than 1 /hpf (0-3) 09/28/18 15:30 Urine WBC 4 /hpf (0-5) 10/01/18 14:20 Urine WBC Clumps Many (None) H 09/18/18 18:35 Ur Squamous Epith Cells <1 /hpf (0-5) 10/01/18 14:20 Triple Phos Crystals Many /hpf (None) H 09/18/18 18:35 Urine Bacteria Moderate /hpf (None) H 09/18/18 18:35 Hyaline Casts 1 /lpf (0-3) 09/28/18 15:30 Granular Casts 1 /lpf (None) 10/01/18 14:20 Urine Mucus Few /lpf (Occasional) H 10/01/18 14:20 Micro UA Comment Culture indicated 09/28/18 15:30 Ur Microscopic Review Not Reportable 10/01/18 14:20 Urine Culture Comments Culture indicated 09/28/18 15:30 Nasal Screen MRSA (PCR) Not detected (Negative) 09/18/18 22:46 Stl C.difficile DNA Amp Negative (Negative) 10/01/18 16:10 C. diff Tox Epid 027 Negative (Negative) 10/01/18 16:10 Vancomycin Trough 11.2 mcg/mL (5.0-10.0) H 10/05/18 11:49 Random Vancomycin 19.5 Comment 09/26/18 14:26 Blood Type B Positive 09/29/18 03:30 Blood Type Recheck Required 09/29/18 03:30 Antibody Screen Negative 09/29/18 03:30 MTS Gel Crossmatch See Detail 10/01/18 03:[address] 09/18/18 18:40 CONCLUSION: 1. Stable appearance of the brain. Marked ventriculomegaly and white matter disease. . Chest CTA 09/18/18 19:26 CONCLUSION: 1. There is no evidence for pulmonary embolism. 2. Severe emphysema. 3. There is a large soft tissue mass in the right lower lobe suspicious for malignancy until proven otherwise. Venous Doppler Study 10/01/18 00:00 CONCLUSION: 1. Superficial venous thrombosis identified in the right cephalic vein. 2. No evidence of DVT. Abdomen/Pelvis CT 10/03/18 07:26 CONCLUSION: 1. There is air and fluid identified within the stomach which may account for the patient's perceived distention. No evidence of bowel obstruction or ileus. 2. Extensive atherosclerosis. 3. Persistent right lower lobe airspace consolidation. Abdomen X-Ray 10/08/18 09:15 CONCLUSION: No acute findings Chest X-Ray 10/10/18 04:00 CONCLUSION: 1. No significant interval change. 2. Stable parenchymal opacity in the right mid to lower lung zones. Objective Remarks: GENERAL: Well-nourished, well-developed patient female appearing older than stated age resting comfortably, SKIN: Warm and dry. HEAD: Atraumatic. Normocephalic. EYES: Pupils equal and round. No scleral icterus. No injection or drainage. ENT: No nasal bleeding or discharge. Mucous membranes pink and moist. NECK: Tracheostomy in place, slight pink tinge to secretions, no active bleeding. CARDIOVASCULAR: S1S2 normal, No murmurs rubs or gallops. RESPIRATORY: Tracheostomy 8.0 Shiley in situ, currently on CPAP trials B/L equal air entry GASTROINTESTINAL: Abdomen soft, non-tender,distended. PEG in place, MUSCULOSKELETAL: Extremities without clubbing, cyanosis, 1+ peripheral edema bilateral upper extremity. s/p L AKA. NEUROLOGICAL: Awake and responsive. Nodding head Assessment and Plan - Assessment and Plan Plan: NEURO: History of stroke Off sedation. Monitor neuro status Avoid sedatives RESP: Acute respiratory failure on mechanical ventilation Emphysema Lung mass History of prior trach after stroke, has been subsequently decannulated Per Dr. De Jesus. not wishing to pursue CT-guided biopsy. Continue with vent support Daily CPAP trials. Vent bundle/nebs. Percutaneous tracheostomy performed at bedside 09/29.8.0 Shiley Pulm toilet, trach care CV: HTN Monitor BP/heart rate keep MAP>65mmHg. On Cardizem 30mg q6 with hold orders. GI: PEG in place. On Glucerna 1.5 @ 45ml/hr KUB abdomen 10/02 Normal bowel gas pattern. CT abd/pelvis 10/03: No evidence of bowel obstruction or ileus. Clinically no evidence of PEG tube malfunction dislodgment FEN/RENAL: Acute hypernatremia- resolved Monitor renal function, I/O's, electrolytes replacement per protocol. Free water 250ml Q8, ID: HCAP UTI Urine culture from 09/18 with providentia and Proteus. BC 10/01: NGTD sputum cx 09/28 and 10/03 : No growth On abx Cefepime and Vanco, d/c Vanco, monitor for signs of infections ( Fever, WBC) C-diff PCR negative on 10/01 HEME: R brachial DVT Anemia Lovenox 60 mg subcu every 12 hours. s/p Transfuse 2u PRBC 10/01 GI is following for EGD/Colonoscopy today Hemoglobin stable ENDO: Diabetes mellitus Insulin sliding scale Glucose monitoring per ICU protocol PROPH: SCD/Lovenox for DVT prophylaxis. Protonix 40mg Q12 for stress ulcer prophylaxis. 10/01 Doppler US UE b/l: Superficial venous thrombosis identified in the right cephalic vein. No evidence of DVT. 09/21 Doppler US RUE: Occlusive thrombus cephalic and brachial veins ACCESS: PIV x2. Full code Level 3 follow-up Planned transfer to LTAC when bed available. Patient had a history of ESBL in a left lower foot wound several years ago, now S/P left AKA placed in isolation, for history of infection Code Status: Full Discussed Condition With: No family at bedside. Discussed with COMPOSING MACHINE OPERATOR/TENDER.
[2018-10-13] MEDS: Pantoprazole Inj 40 MG Vial IV.PUSH SCH ×2 (12:42→23:06)
--- NOTE | 2018-10-13 19:02 | P.PNPL ---
Subjective Interval history: 68 YOAA female who was with Hospice svc, now rescended back on Vent off sedation Tolerates TF Had cuff leak, improved with repositioning Physical Exam Vital signs: Vital Signs 10/12/18 19:23 10/12/18 19:26 10/12/18 20:00 Temperature 99.3 F Pulse Rate 104 H 112 H Respiratory Rate 16 16 17 Blood Pressure 119/58 L Pulse Oximetry 100 99 10/12/18 21:00 10/12/18 22:00 10/12/18 23:00 Temperature Pulse Rate 117 H 109 H 98 H Respiratory Rate 17 16 16 Blood Pressure 119/56 L 118/57 L 116/56 L Pulse Oximetry 99 100 100 10/13/18 00:00 10/13/18 00:10 10/13/18 01:00 Temperature Pulse Rate 114 H 114 H Respiratory Rate 17 23 16 Blood Pressure 122/57 L 115/58 L Pulse Oximetry 100 100 98 10/13/18 02:00 10/13/18 03:00 10/13/18 03:37 Temperature Pulse Rate 110 H 112 H Respiratory Rate 17 20 16 Blood Pressure 124/61 135/63 Pulse Oximetry 100 100 100 10/13/18 04:00 10/13/18 05:00 10/13/18 06:00 Temperature Pulse Rate 112 H 114 H 108 H Respiratory Rate 18 26 H 20 Blood Pressure 130/60 138/63 Pulse Oximetry 100 98 100 10/13/18 06:16 10/13/18 07:39 10/13/18 08:00 Temperature 99.1 F Pulse Rate 117 H 105 H 105 H Respiratory Rate 39 H 12 16 Blood Pressure 168/77 H 123/58 L Pulse Oximetry 98 100 99 10/13/18 10:00 10/13/18 11:45 10/13/18 12:00 Temperature 98.9 F Pulse Rate 97 H 103 H 102 H Respiratory Rate 15 8 L Blood Pressure 129/59 L Pulse Oximetry 100 10/13/18 14:00 10/13/18 14:20 10/13/18 16:00 Temperature Pulse Rate 96 H 96 H Respiratory Rate 9 L 10 L Blood Pressure 115/61 Pulse Oximetry 100 10/13/18 18:00 Temperature Pulse Rate 109 H Respiratory Rate Blood Pressure Pulse Oximetry Intake & Output 10/13/18 10/13/18 10/14/18 06:59 18:59 06:59 Intake Total 4051 / 4051 350 / 350 Output Total 2300 / 2300 700 / 700 Balance 1751 / 1751 -350 / -350 Weight 87 kg Intake: IV 100 / 100 100 / 100 Maxipime Inj 1,000 MG In NS Inj 100 / 100 100 / 100 100 ML @ 200 mls/hr IV.SIG Q8H [facility] Rx#:[id number] Tube Feeding 907 / 907 Water Bolus Amount 450 / 450 Free Water Amount 250 / 250 250 / 250 Other 2344 / 2344 Output: Urine Amount (Catheter) 2300 / 2300 700 / 700 Indwelling Urethral Catheter 2300 / 2300 700 / 700 Other: Date of Last Bowel Movement 10/12/18 10/12/18 # Bowel Movements 1 GENERAL: Elderly AA female, on Vent SKIN: Warm and dry. HEAD: Normocephalic. EYES: No scleral icterus. No injection or drainage. NECK: Supple, trachea midline. No JVD or lymphadenopathy. has Trach CARDIOVASCULAR: Regular rate and rhythm without murmurs, gallops, or rubs. RESPIRATORY: Breath sounds equal bilaterally. No accessory muscle use. GASTROINTESTINAL: Abdomen soft, non-tender, nondistended. MUSCULOSKELETAL: No cyanosis, or edema. left AKA BACK: Nontender without obvious deformity. No CVA tenderness. - Urinary Catheter Management Indwelling Temp Sensing Catheter Cath placed during this visit: yes, but has since been removed by the nurse Reason for continuing: Severe pressure ulcer/wound Insertion date: 09/18/18 Insertion time: 18:50 Removal date: 09/23/18 Removal time: 16:00 Female External Cath placed during this visit: no Reason for continuing: Severe pressure ulcer/wound Straight Cath placed during this visit: no Indwelling Urethral Catheter Cath placed during this visit: yes Reason for continuing: Severe pressure ulcer/wound Insertion date: 10/07/18 Insertion time: 10:00 Assessment and Plan - Plan IMPRESSION: VDRF large Rt lung mass COPD HTN H/O CVA PLAN: Cont Vent PRVC AC 16, Fi02 35% CPAP trial daily Aerosol nebs Cont Abx Trach care. Tube feeding
[2018-10-14] MEDS: Insulin NovoLIN Regular Correctional Sugar Inj SQ SCH ×5 (00:04→23:28)
[2018-10-14] MEDS: dilTIAZem 30 MG Tablet PO SCH ×4 (04:06→21:05)
[2018-10-14] MEDS: Oral Hygiene Kit OROPHARYNG SCH ×4 (04:06→23:27)
[2018-10-14] MEDS: Senna/Docusate Sodium 8.6/50 MG Tablet PO SCH ×2 (08:04→20:42)
[2018-10-14] MEDS: Chlorhexidine 0.12% Oral Kit 15 ML UDC OROPHARYNG SCH ×2 (08:04→19:49)
[2018-10-14] MEDS: Enoxaparin Inj 60 MG/0.6 ML Syringe SQ SCH ×2 (08:05→20:41)
[2018-10-14] MEDS: Pantoprazole Inj 40 MG Vial IV.PUSH SCH ×2 (11:29→23:26)
--- NOTE | 2018-10-14 13:56 | P.PNCC ---
Subjective Subjective Remarks/Hospital Course: 09/18: 68-year-old female past medical history of stroke, left BKA, who was on home hospice until just prior to arrival, presents for an evaluation of fever and altered mental status. According to EMS the patient had not required oxygen until beginning of this week when she had gradual increased demand of her oxygen. End-tidal CO2 prior to arrival was 6. Initial room nasal cannula saturation was 91, she was placed on nonrebreather position of comfort and transfer to emergency department. EMS related that the had elected to revoke the patient's DNR and hospice care prior to transferring her to the hospital. The patient apparently is normally a GCS of 14, apparently she does take some thickened food p.o. department the patient was severely altered with GCS of 6 on arrival [id number] and was intubated by ED attending for an airway protection. 09/19: Remains sedated, orally intubated on mechanical ventilation. CT chest showed right lower lobe lung mass suspicious for malignancy. Patient has a PEG tube following previous stroke. 09/20: Remains sedated, orally intubated on mechanical ventilation. Started on tube feeds. 09/21: Remains sedated, orally intubated on mechanical ventilation. Tolerating tube feeds. Right approximately swelling noted. 09/22 Is not tolerating CPAP trial when decrease PS below 18. Daughter at bedside, says will be here later. Says they don't think they want to proceed with lung biopsy at this time, but on the other hand she discusses the possibility of re-do trach. She says they are not sure how to proceed. I suggested we meet together. Daughter states she has been bedridden since stroke about 4 years ago. Has been in prison. PEG due to dysphagia, does not eat. Speaks a little but daughter states she has declined significantly over the last 2 weeks. 09/23 No significant change. Patient does not tolerate CPAP. Family is very clear that they do not wish to pursue biopsy or diagnosis of suspected lung cancer. At this time, they wish to continue supportive care with vent and FULL CODE. 09/24 No change. Does not tolerate CPAP. Will diurese for positive fluid balance. 09/25 Now on CPAP 20/5 and not tolerating wean. Continue attempts at diuresis to address positive fluid balance since admission 09/26: Remains sedated, orally intubated on mechanical ventilation. Hold CPAP trials yesterday 09/27 Patient is sedated with Diprivan and intubated. Tolerating tube feeds. Afebrile. 09/28 Patient remains intubated and sedated. T;100.8 09/29 Has not made any progress towards weaning. Family offered comfort measures however they expressed desire to proceed with trach Subjective: 09/30 status post bedside tracheostomy yesterday by Dr. Gavin. Discontinued propofol drip. On CPAP 14/5 for 2 hours today. BP is low, will need to hold metoprolol and titrate back on cardizem (nurses held some doses yesterday too). Positive fluid balance but not able to diurese today due to low BP. Awaiting bed at [facility]. 10/01 Patient remains on ventilator via trach. On no sedation. Hgb 6.7 this morning and T: 100.4 at midnight. Tachycardic. 10/02 Patient is on ventilator via trach. On no sedation. Spiked fever with T: 101.5. s/p transfusion 2u PRBC yesterday. Mcmillan/thick secretions noted per nursing staff. 10/03 Patient had low grade fever with T:100.4 last night. Tube feeds held for abd distention. KUB yesterday showed normal bowel gas pattern. 10/04 Patient is on ventilator via trach. For panendoscopy today. T:99.8 last night. 10/05 Patient is on ventilator via trach, on no drips. s/p panendoscopy yesterday showed chronic gastritis with no source of bleeding identified on upper or lower endoscopy. Afebrile. 10/06 Patient remains on ventilator via trach. T:99.9 yesterday 10/07: Remains on the vent continues to fail CPAP trials due to tachypnea. No nausea vomiting overnight currently resolved. Chest tube had been restarted. Low-grade fever 100.6 10/08: Continues to fail CPAP trials. However on vent support appears comfortable. Daughter at the bedside updated. No fever today 10/09: No acute changes overnight. The patient continues to fail CPAP. Patient tolerating tube feeds. 10/10: Afebrile .patient tolerating CPAP trials this a.m.. False level was noted to be low replacement underway. Bowel movements x2 last night 10/11: Patient continues to tolerate CPAP trials 3-4 hours/day Glucerna tube feeds increased to 45 cc/an hour as recommended by dietitian. 10/12: Patient tolerating CPAP trials only 3-4 hours a day. Patient nodding head yes and no to questions, appears calm and comfortable. Medical status update provided to daughter at bedside. 10/13: Patient was noted to have cuff leak, trach ties then positioned appropriately, with resolution of cuff leak. Patient tolerating tube feeds. Continues on CPAP trials. 10/14: Afebrile. The patient tolerated CPAP trials for approximately 8 hours yesterday. Objective Vital Signs / I&O: Vital Signs 10/13/18 14:00 10/13/18 14:20 10/13/18 16:00 Temperature Pulse Rate 96 H 96 H Respiratory Rate 9 L 10 L Blood Pressure 115/61 Pulse Oximetry 100 10/13/18 18:00 10/13/18 20:00 10/13/18 20:35 Temperature 98.5 F Pulse Rate 109 H 118 H 107 H Respiratory Rate 19 17 Blood Pressure 155/69 H Pulse Oximetry 100 100 10/13/18 22:00 10/14/18 00:00 10/14/18 00:55 Temperature 98.4 F Pulse Rate 123 H 126 H Respiratory Rate 22 21 Blood Pressure 120/56 L Pulse Oximetry 100 100 10/14/18 02:00 10/14/18 04:00 10/14/18 04:51 Temperature 98.2 F Pulse Rate 106 H 114 H Respiratory Rate 24 23 Blood Pressure 120/59 L Pulse Oximetry 98 100 10/14/18 06:00 10/14/18 08:00 10/14/18 08:48 Temperature 99.1 F Pulse Rate 110 H 109 H 96 H Respiratory Rate 31 H Blood Pressure 129/59 L Pulse Oximetry 99 10/14/18 08:55 10/14/18 10:00 10/14/18 11:47 Temperature Pulse Rate 98 H Respiratory Rate 11 L 19 Blood Pressure Pulse Oximetry 100 100 10/14/18 12:00 Temperature 98.3 F Pulse Rate 84 Respiratory Rate 20 Blood Pressure 111/56 L Pulse Oximetry 99 Intake & Output 10/13/18 10/14/18 10/14/18 18:59 06:59 18:59 Intake Total 450 / 450 2690 / 2690 250 / 250 Output Total 700 / 700 300 / 300 Balance -250 / -250 2390 / 2390 250 / 250 Weight 53.7 kg Intake: IV 200 / 200 200 / 200 Maxipime Inj 1,000 MG In NS Inj 200 / 200 200 / 200 100 ML @ 200 mls/hr IV.SIG Q8H [facility] Rx#:[id number] Oral 0 / 0 Tube Feeding 990 / 990 Tube Irrigant 250 / 250 Water Bolus Amount 750 / 750 Free Water Amount 250 / 250 500 / 500 250 / 250 Output: Urine Amount (Catheter) 700 / 700 300 / 300 Indwelling Urethral Catheter 700 / 700 300 / 300 Other: Date of Last Bowel Movement 10/12/18 10/13/18 10/13/18 # Bowel Movements 1 0 Result Diagrams: 10/13/18 05:23 10/13/18 05:23 Other Results: Laboratory Results WBC 5.6 th/mm3 (4.0-11.0) 10/13/18 05:23 RBC 3.66 mil/mm3 (4.00-5.30) L 10/13/18 05:23 Hgb 9.3 gm/dL (11.6-15.3) L 10/13/18 05:23 Hct 29.1 % (35.0-46.0) L 10/13/18 05:23 MCV 79.6 fL (80.0-100.0) L 10/13/18 05:23 MCH 25.5 pg (27.0-34.0) L 10/13/18 05:23 MCHC 32.0 % (32.0-36.0) 10/13/18 05:23 RDW 20.7 % (11.6-17.2) H 10/13/18 05:23 Plt Count 283 th/mm3 (150-450) 10/13/18 05:23 MPV 8.8 fL (7.0-11.0) 10/13/18 05:23 Prelim Diff (Auto) Slide review pending 10/09/18 04:36 Neut % (Auto) 62.9 % (16.0-70.0) 10/13/18 05:23 Lymph % (Auto) 17.3 % (9.0-44.0) 10/13/18 05:23 Bosque % (Auto) 11.3 % (0.0-8.0) H 10/13/18 05:23 Eos % (Auto) 7.8 % (0.0-4.0) H 10/13/18 05:23 Baso % (Auto) 0.7 % (0.0-2.0) 10/13/18 05:23 Neut # (Auto) 3.5 th/mm3 (1.8-7.7) 10/13/18 05:23 Lymph # (Auto) 1.0 th/mm3 (1.0-4.8) 10/13/18 05:23 Bosque # (Auto) 0.6 th/mm3 (0.0-0.9) 10/13/18 05:23 Eos # (Auto) 0.4 th/mm3 (0.0-0.4) 10/13/18 05:23 Baso # (Auto) 0.0 th/mm3 (0.0-0.2) 10/13/18 05:23 WBC Differential . 10/13/18 05:23 Diff Scan Auto diff confirmed 10/09/18 04:36 Seg Neuts % (Manual) 83 % (16-70) H 09/29/18 03:24 Band Neuts % (Manual) 3 % (0-6) 09/29/18 03:24 Lymphocytes % (Manual) 7 % (9-44) L 09/29/18 03:24 Monocytes % (Manual) 4 % (0-8) 09/29/18 03:24 Eosinophils % (Manual) 3 % (0-4) 09/29/18 03:24 Abs Neuts (Manual) 13.3 th/mm3 (1.8-7.7) H 09/29/18 03:24 Differential Comment Auto diff final 10/13/18 05:23 Toxic Vacuolation Present (None) H 09/29/18 03:24 Platelet Estimate Normal (Normal) 10/09/18 04:36 Platelet Morphology Enlarged (Normal) H 10/09/18 04:36 Tear Drop Cells 1+ (None) H 09/23/18 06:13 Ovalocytes 1+ (None) H 10/01/18 04:15 PT 10.2 sec (9.8-11.6) 09/19/18 04:06 INR 1.0 Ratio 09/19/18 04:06 APTT 21.7 sec (23.4-31.7) L 09/19/18 04:06 Puncture Site Left radial 09/19/18 11:07 Patient Temperature 98.6 09/19/18 11:07 O2 Saturation 96 % (90-100) 09/19/18 11:07 ABG pH 7.51 (7.380-7.420) H* 09/19/18 11:07 ABG pCO2 29 mmHg (38-42) L 09/19/18 11:07 ABG pO2 134 mmHG (61-120) H 09/19/18 11:07 ABG HCO3 22 mmol/L (22-26) 09/19/18 11:07 ABG O2 Content 11.7 Vol % (12.0-20.0) L 09/19/18 11:07 ABG Base Excess -0.3 mmol/L (-2-2) 09/19/18 11:07 ABG Methemoglobin 1.7 % (0-2) 09/19/18 11:07 Vasiliy Test Present 09/19/18 11:07 Hemoglobin 8.4 G/DL (12.0-16.0) L 09/19/18 11:07 Carboxyhemoglobin 1.1 % (0-4) 09/19/18 11:07 O2 Delivery Device Ventilator 09/19/18 11:07 Vent Setting Prvc20/500/1.0/+5 09/19/18 11:07 Inspired O2 35 % 09/19/18 11:07 Critical Value Yes 09/19/18 11:07 Sodium 143 meq/L (136-145) 10/13/18 05:23 Potassium 4.0 meq/L (3.5-5.1) 10/13/18 05:23 Chloride 107 meq/L (98-107) 10/13/18 05:23 Carbon Dioxide 30.7 meq/L (21.0-32.0) 10/13/18 05:23 Anion Gap 5 meq/L (5-15) 10/13/18 05:23 BUN 9 mg/dL (7-18) 10/13/18 05:23 Creatinine 0.60 mg/dL (0.50-1.00) 10/13/18 05:23 Estimated GFR Greater than 89 mL/min (>89) 10/13/18 05:23 POC Glucose 118 mg/dl (68-110) H 10/14/18 11:38 Random Glucose 111 mg/dL (74-106) H 10/13/18 05:23 Lactic Acid 4.1 mmol/L (0.4-2.0) H* 09/19/18 04:06 Calcium 8.6 mg/dL (8.5-10.1) 10/13/18 05:23 Calcium Adj for Albumin 8.4 mg/dL (8.5-10.1) L 09/18/18 18:44 Phosphorus 2.6 mg/dL (2.5-4.9) 10/11/18 07:32 Magnesium 2.2 mg/dL (1.5-2.5) 10/11/18 07:32 Total Bilirubin 0.2 mg/dL (0.2-1.0) 10/09/18 04:36 AST 15 U/L (15-37) 10/09/18 04:36 ALT 16 U/L (10-53) 10/09/18 04:36 Alkaline Phosphatase 89 U/L (45-117) 10/09/18 04:36 Total Creatine Kinase 123 U/L (26-192) 09/21/18 11:26 Troponin I 0.12 ng/mL (0.02-0.05) H 09/18/18 18:44 Total Protein 7.5 g/dL (6.4-8.2) 10/09/18 04:36 Albumin 2.2 g/dL (3.4-5.0) L 10/09/18 04:36 Urine Color Yellow (Yellw/Straw) 10/01/18 14:20 Urine Clarity Hazy (Clear) H 10/01/18 14:20 Urine pH 5.0 (5.0-8.5) 10/01/18 14:20 Ur Specific Foster 1.024 (1.002-1.035) 10/01/18 14:20 Urine Protein 30 mg/dL (Neg-Trace) H 10/01/18 14:20 Urine Glucose (UA) Negative mg/dL (Negative) 10/01/18 14:20 Urine Ketones Negative mg/dL (Negative) 10/01/18 14:20 Urine Occult Blood Negative (Negative) 10/01/18 14:20 Urine Nitrate Negative (Negative) 10/01/18 14:20 Urine Bilirubin Negative (Negative) 10/01/18 14:20 Urine Urobilinogen Less than 2 mg/dL (Less than 2) 10/01/18 14:20 Ur Leukocyte Esterase Trace (Negative) H 10/01/18 14:20 Urine RBC Less than 1 /hpf (0-3) 09/28/18 15:30 Urine WBC 4 /hpf (0-5) 10/01/18 14:20 Urine WBC Clumps Many (None) H 09/18/18 18:35 Ur Squamous Epith Cells <1 /hpf (0-5) 10/01/18 14:20 Triple Phos Crystals Many /hpf (None) H 09/18/18 18:35 Urine Bacteria Moderate /hpf (None) H 09/18/18 18:35 Hyaline Casts 1 /lpf (0-3) 09/28/18 15:30 Granular Casts 1 /lpf (None) 10/01/18 14:20 Urine Mucus Few /lpf (Occasional) H 10/01/18 14:20 Micro UA Comment Culture indicated 09/28/18 15:30 Ur Microscopic Review Not Reportable 10/01/18 14:20 Urine Culture Comments Culture indicated 09/28/18 15:30 Nasal Screen MRSA (PCR) Not detected (Negative) 09/18/18 22:46 Stl C.difficile DNA Amp Negative (Negative) 10/01/18 16:10 St C. diff Tox Epid 027 Negative (Negative) 10/01/18 16:10 Vancomycin Trough 11.2 mcg/mL (5.0-10.0) H 10/05/18 11:49 Random Vancomycin 19.5 Comment 09/26/18 14:26 Blood Type B Positive 09/29/18 03:30 Blood Type Recheck Required 09/29/18 03:30 Antibody Screen Negative 09/29/18 03:30 MTS Gel Crossmatch See Detail 10/01/18 03:[address] 09/18/18 18:40 CONCLUSION: 1. Stable appearance of the brain. Marked ventriculomegaly and white matter disease. . Chest CTA 09/18/18 19:26 CONCLUSION: 1. There is no evidence for pulmonary embolism. 2. Severe emphysema. 3. There is a large soft tissue mass in the right lower lobe suspicious for malignancy until proven otherwise. Venous Doppler Study 10/01/18 00:00 CONCLUSION: 1. Superficial venous thrombosis identified in the right cephalic vein. 2. No evidence of DVT. Abdomen/Pelvis CT 10/03/18 07:26 CONCLUSION: 1. There is air and fluid identified within the stomach which may account for the patient's perceived distention. No evidence of bowel obstruction or ileus. 2. Extensive atherosclerosis. 3. Persistent right lower lobe airspace consolidation. Abdomen X-Ray 10/08/18 09:15 CONCLUSION: No acute findings Chest X-Ray 10/10/18 04:00 CONCLUSION: 1. No significant interval change. 2. Stable parenchymal opacity in the right mid to lower lung zones. Objective Remarks: GENERAL: Well-nourished, well-developed patient female appearing older than stated age resting comfortable SKIN: Warm and dry. HEAD: Atraumatic. Normocephalic. EYES: Pupils equal and round. No scleral icterus. No injection or drainage. ENT: No nasal bleeding or discharge. Mucous membranes pink and moist. NECK: Tracheostomy in place, slight pink tinge to secretions, no active bleeding. CARDIOVASCULAR: S1S2 normal, No murmurs rubs or gallops. RESPIRATORY: Tracheostomy 8.0 Shiley in situ, currently on CPAP trials B/L equal air entry GASTROINTESTINAL: Abdomen soft, non-tender,distended. PEG in place, MUSCULOSKELETAL: Extremities without clubbing, cyanosis, or edema. s/p L AKA. NEUROLOGICAL: Awakens, looks around. Blinks and squeezes hand to command Assessment and Plan - Assessment and Plan Plan: NEURO: History of stroke Off sedation. Monitor neuro status Avoid sedatives RESP: Acute respiratory failure on mechanical ventilation Emphysema Lung mass History of prior trach after stroke, has been subsequently decannulated Per Dr. De Jesus. not wishing to pursue CT-guided biopsy. Continue with vent support Daily CPAP trials. Vent bundle/nebs. Tolerated for 8 hr yesterday Percutaneous tracheostomy performed at bedside 09/29. Pulm toilet, trach care CV: HTN Monitor BP/heart rate keep MAP>65mmHg. On Cardizem 30mg q6 with hold orders. GI: PEG in place. On Glucerna 1.5 @ 45ml/hr KUB abdomen 2/2 Normal bowel gas pattern. CT abd/pelvis 2/3: No evidence of bowel obstruction or ileus. Clinically no evidence of PEG tube malfunction dislodgment FEN/RENAL: Acute hypernatremia- resolved Monitor renal function, I/O's, electrolytes replacement per protocol. Free water 250ml Q8, ID: HCAP UTI Urine culture from 09/18 with providentia and Proteus. BC 10/01: NGTD sputum cx 09/28 and 10/03 : No growth On abx Cefepime and Vanco, d/c Vanco, monitor for signs of infections ( Fever, WBC) C-diff PCR negative on 10/01 HEME: R brachial DVT Anemia Lovenox 60 mg subcu every 12 hours. s/p Transfuse 2u PRBC 10/01 GI is following for EGD/Colonoscopy today ENDO: Diabetes mellitus Insulin sliding scale PROPH: SCD/Lovenox for DVT prophylaxis. Protonix 40mg Q12 for stress ulcer prophylaxis. 10/01 Doppler US UE b/l: Superficial venous thrombosis identified in the right cephalic vein. No evidence of DVT. 09/21 Doppler US RUE: Occlusive thrombus cephalic and brachial veins ACCESS: PIV x2. Full code Level 3 follow-up Planned transfer to LTAC when bed available Code Status: Full Discussed Condition With: No family at bedside discussed with NEUROPHYSIOLOGIST at bedside
--- NOTE | 2018-10-14 18:44 | P.PNPL ---
Subjective Interval history: 68 YOAA female who was with Hospice svc, now rescended back on Vent off sedation Tolerates TF Tolerated CPAP 4 hrs Follows commands intermittentally. Physical Exam Vital signs: Vital Signs 10/13/18 20:00 10/13/18 20:35 10/13/18 22:00 Temperature 98.5 F Pulse Rate 118 H 107 H 123 H Respiratory Rate 19 17 Blood Pressure 155/69 H Pulse Oximetry 100 100 10/14/18 00:00 10/14/18 00:55 10/14/18 02:00 Temperature 98.4 F Pulse Rate 126 H 106 H Respiratory Rate 22 21 Blood Pressure 120/56 L Pulse Oximetry 100 100 10/14/18 04:00 10/14/18 04:51 10/14/18 06:00 Temperature 98.2 F Pulse Rate 114 H 110 H Respiratory Rate 24 23 Blood Pressure 120/59 L Pulse Oximetry 98 100 10/14/18 08:00 10/14/18 08:48 10/14/18 08:55 Temperature 99.1 F Pulse Rate 109 H 96 H Respiratory Rate 31 H 11 L Blood Pressure 129/59 L Pulse Oximetry 99 100 10/14/18 10:00 10/14/18 11:47 10/14/18 12:00 Temperature 98.3 F Pulse Rate 98 H 84 Respiratory Rate 19 20 Blood Pressure 111/56 L Pulse Oximetry 100 99 10/14/18 14:00 10/14/18 16:00 10/14/18 17:17 Temperature 98.5 F Pulse Rate 91 H 103 H Respiratory Rate 20 18 Blood Pressure 145/67 H Pulse Oximetry 99 98 10/14/18 18:00 Temperature Pulse Rate 96 H Respiratory Rate Blood Pressure Pulse Oximetry Intake & Output 10/13/18 10/14/18 10/14/18 18:59 06:59 18:59 Intake Total 450 / 450 2690 / 2690 500 / 500 Output Total 700 / 700 300 / 300 Balance -250 / -250 2390 / 2390 500 / 500 Weight 53.7 kg Intake: IV 200 / 200 200 / 200 Maxipime Inj 1,000 MG In NS Inj 200 / 200 200 / 200 100 ML @ 200 mls/hr IV.SIG Q8H [facility] Rx#:[id number] Oral 0 / 0 Tube Feeding 990 / 990 Tube Irrigant 250 / 250 Water Bolus Amount 750 / 750 Free Water Amount 250 / 250 500 / 500 500 / 500 Output: Urine Amount (Catheter) 700 / 700 300 / 300 Indwelling Urethral Catheter 700 / 700 300 / 300 Other: Date of Last Bowel Movement 10/12/18 10/13/18 10/13/18 # Bowel Movements 1 0 GENERAL: Elderly AA female on Vent, opens eyes SKIN: Warm and dry. HEAD: Normocephalic. EYES: No scleral icterus. No injection or drainage. NECK: Supple, trachea midline. No JVD or lymphadenopathy. Has Trach CARDIOVASCULAR: Regular rate and rhythm without murmurs, gallops, or rubs. RESPIRATORY: Breath sounds equal bilaterally. No accessory muscle use. GASTROINTESTINAL: Abdomen soft, non-tender, nondistended. MUSCULOSKELETAL: No cyanosis, or edema. Left AKA BACK: Nontender without obvious deformity. No CVA tenderness. - Urinary Catheter Management Indwelling Temp Sensing Catheter Cath placed during this visit: yes, but has since been removed by the nurse Reason for continuing: Severe pressure ulcer/wound Insertion date: 09/18/18 Insertion time: 18:50 Removal date: 09/23/18 Removal time: 16:00 Female External Cath placed during this visit: no Reason for continuing: Severe pressure ulcer/wound Straight Cath placed during this visit: no Indwelling Urethral Catheter Cath placed during this visit: yes Reason for continuing: Severe pressure ulcer/wound Insertion date: 10/07/18 Insertion time: 10:00 Assessment and Plan - Plan IMPRESSION: VDRF large Rt lung mass COPD HTN H/O CVA PLAN: Cont Vent PRVC AC 16, Fi02 35% CPAP trial daily Aerosol nebs Cont Abx Trach care. Tube feeding EMMA RN at .
[2018-10-15] MEDS: dilTIAZem 30 MG Tablet PO SCH ×4 (03:25→21:18)
[2018-10-15] MEDS: Oral Hygiene Kit OROPHARYNG SCH ×3 (03:25→18:47)
[2018-10-15 06:03] LABS: Anion Gap 5 meq/L (5-15); Blood Urea Nitrogen 13 mg/dL (7-18); Calcium 8.7 mg/dL (8.5-10.1); Carbon Dioxide 28.6 meq/L (21.0-32.0); Chloride 107 meq/L (98-107); Glomerular Filtration Rate Greater Than 89 mL/min (>89); Glucose,Random 110 mg/dL (74-106); Magnesium 2.2 mg/dL (1.5-2.5); Phosphorus 2.4 mg/dL (2.5-4.9); Potassium 4.3 meq/L (3.5-5.1); Sodium 141 meq/L (136-145)
[2018-10-15] MEDS: Insulin NovoLIN Regular Correctional Sugar Inj SQ SCH ×3 (06:10→18:42)
[2018-10-15 06:12] LABS: Baso # (Auto) 0.1 th/mm3 (0.0-0.2); Baso % (Auto) 0.8 % (0.0-2.0); Eos # (Auto) 0.4 th/mm3 (0.0-0.4); Eos % (Auto) 6.8 % (0.0-4.0); Hematocrit 30.6 % (35.0-46.0); Hemoglobin 9.7 gm/dL (11.6-15.3); Lymph # (Auto) 1.2 th/mm3 (1.0-4.8); Lymph % (Auto) 18.4 % (9.0-44.0); Mean Corpuscular HGB Conc 31.6 % (32.0-36.0); Mean Corpuscular Hemoglobin 24.8 pg (27.0-34.0); Mean Corpuscular Volume 78.4 fL (80.0-100.0); Mean Platelet Volume 9.6 fL (7.0-11.0); Mono # (Auto) 0.8 th/mm3 (0.0-0.9); Mono % (Auto) 12.6 % (0.0-8.0); Neut # (Auto) 3.9 th/mm3 (1.8-7.7); Neut % (Auto) 61.4 % (16.0-70.0); Platelet Count 288 th/mm3 (150-450); Red Cell Distribution Width 21.4 % (11.6-17.2); White Blood Count 6.3 th/mm3 (4.0-11.0)
[2018-10-15] MEDS: Enoxaparin Inj 60 MG/0.6 ML Syringe SQ SCH ×2 (10:31→21:17)
[2018-10-15] MEDS: Senna/Docusate Sodium 8.6/50 MG Tablet PO SCH ×3 (10:31→20:22)
[2018-10-15] MEDS: Chlorhexidine 0.12% Oral Kit 15 ML UDC OROPHARYNG SCH ×2 (10:33→21:17)
[2018-10-15] MEDS: Pantoprazole Inj 40 MG Vial IV.PUSH SCH (13:57)
--- NOTE | 2018-10-15 14:01 | P.PNCC ---
Subjective Subjective Remarks/Hospital Course: 09/18: 68-year-old female past medical history of stroke, left BKA, who was on home hospice until just prior to arrival, presents for an evaluation of fever and altered mental status. According to EMS the patient had not required oxygen until beginning of this week when she had gradual increased demand of her oxygen. End-tidal CO2 prior to arrival was 6. Initial room nasal cannula saturation was 91, she was placed on nonrebreather position of comfort and transfer to emergency department. EMS related that the had elected to revoke the patient's DNR and hospice care prior to transferring her to the hospital. The patient apparently is normally a GCS of 14, apparently she does take some thickened food p.o. department the patient was severely altered with GCS of 6 on arrival [id number] and was intubated by ED attending for an airway protection. 09/19: Remains sedated, orally intubated on mechanical ventilation. CT chest showed right lower lobe lung mass suspicious for malignancy. Patient has a PEG tube following previous stroke. 09/20: Remains sedated, orally intubated on mechanical ventilation. Started on tube feeds. 09/21: Remains sedated, orally intubated on mechanical ventilation. Tolerating tube feeds. Right approximately swelling noted. 09/22 Is not tolerating CPAP trial when decrease PS below 18. Daughter at bedside, says will be here later. Says they don't think they want to proceed with lung biopsy at this time, but on the other hand she discusses the possibility of re-do trach. She says they are not sure how to proceed. I suggested we meet together. Daughter states she has been bedridden since stroke about 4 years ago. Has been in senior living. PEG due to dysphagia, does not eat. Speaks a little but daughter states she has declined significantly over the last 2 weeks. 09/23 No significant change. Patient does not tolerate CPAP. Family is very clear that they do not wish to pursue biopsy or diagnosis of suspected lung cancer. At this time, they wish to continue supportive care with vent and FULL CODE. 09/24 No change. Does not tolerate CPAP. Will diurese for positive fluid balance. 09/25 Now on CPAP 20/5 and not tolerating wean. Continue attempts at diuresis to address positive fluid balance since admission 09/26: Remains sedated, orally intubated on mechanical ventilation. Hold CPAP trials yesterday 09/27 Patient is sedated with Diprivan and intubated. Tolerating tube feeds. Afebrile. 09/28 Patient remains intubated and sedated. T;100.8 09/29 Has not made any progress towards weaning. Family offered comfort measures however they expressed desire to proceed with trach Subjective: 09/30 status post bedside tracheostomy yesterday by Dr. Gavin. Discontinued propofol drip. On CPAP 14/5 for 2 hours today. BP is low, will need to hold metoprolol and titrate back on cardizem (nurses held some doses yesterday too). Positive fluid balance but not able to diurese today due to low BP. Awaiting bed at [facility]. 10/01 Patient remains on ventilator via trach. On no sedation. Hgb 6.7 this morning and T: 100.4 at midnight. Tachycardic. 10/02 Patient is on ventilator via trach. On no sedation. Spiked fever with T: 101.5. s/p transfusion 2u PRBC yesterday. [place]millan/thick secretions noted per nursing staff. 10/03 Patient had low grade fever with T:100.4 last night. Tube feeds held for abd distention. KUB yesterday showed normal bowel gas pattern. 10/04 Patient is on ventilator via trach. For panendoscopy today. T:99.8 last night. 10/05 Patient is on ventilator via trach, on no drips. s/p panendoscopy yesterday showed chronic gastritis with no source of bleeding identified on upper or lower endoscopy. Afebrile. 10/06 Patient remains on ventilator via trach. T:99.9 yesterday 10/07: Remains on the vent continues to fail CPAP trials due to tachypnea. No nausea vomiting overnight currently resolved. Chest tube had been restarted. Low-grade fever 100.6 10/08: Continues to fail CPAP trials. However on vent support appears comfortable. Daughter at the bedside updated. No fever today 10/09: No acute changes overnight. The patient continues to fail CPAP. Patient tolerating tube feeds. 10/10: Afebrile .patient tolerating CPAP trials this a.m.. False level was noted to be low replacement underway. Bowel movements x2 last night 10/11: Patient continues to tolerate CPAP trials 3-4 hours/day Glucerna tube feeds increased to 45 cc/an hour as recommended by dietitian. 10/12: Patient tolerating CPAP trials only 3-4 hours a day. Patient nodding head yes and no to questions, appears calm and comfortable. Medical status update provided to daughter at bedside. 10/13: Patient was noted to have cuff leak, trach ties then positioned appropriately, with resolution of cuff leak. Patient tolerating tube feeds. Continues on CPAP trials. 10/14: Afebrile. The patient tolerated CPAP trials for approximately 8 hours yesterday. 10/15: Afebrile. Peg tube clogged , multiple attempts to open ,unsuccessful. GI consulted for recommendations. Objective Vital Signs / I&O: Vital Signs 10/14/18 14:00 10/14/18 16:00 10/14/18 17:17 Temperature 98.5 F Pulse Rate 91 H 103 H Respiratory Rate 20 18 Blood Pressure 145/67 H Pulse Oximetry 99 98 10/14/18 18:00 10/14/18 19:50 10/14/18 20:34 Temperature 98.5 F Pulse Rate 96 H 97 H 100 H Respiratory Rate 20 Blood Pressure 144/64 H Pulse Oximetry 99 10/14/18 22:00 10/15/18 00:00 10/15/18 00:15 Temperature 98.9 F Pulse Rate 101 H 107 H Respiratory Rate 20 21 Blood Pressure 138/62 Pulse Oximetry 99 100 10/15/18 02:00 10/15/18 03:55 10/15/18 04:25 Temperature Pulse Rate 104 H 109 H Respiratory Rate 16 Blood Pressure Pulse Oximetry 100 10/15/18 04:26 10/15/18 06:00 10/15/18 07:31 Temperature 98.5 F Pulse Rate 102 H 110 H Respiratory Rate 20 19 Blood Pressure 154/70 H Pulse Oximetry 99 100 10/15/18 08:00 10/15/18 12:00 Temperature Pulse Rate 101 H Respiratory Rate 27 H 28 H Blood Pressure 133/60 Pulse Oximetry 100 100 Intake & Output 10/14/18 10/15/18 10/15/18 18:59 06:59 18:59 Intake Total 1367 / 1367 1225 / 1225 250 / 250 Output Total 750 / 750 700 / 700 Balance 617 / 617 525 / 525 250 / 250 Weight 56.4 kg Intake: IV 100 / 100 200 / 200 Maxipime Inj 1,000 MG In NS Inj 100 / 100 200 / 200 100 ML @ 200 mls/hr IV.SIG Q8H [facility] Rx#:[id number] Oral 0 / 0 0 / 0 Tube Feeding 417 / 417 425 / 425 Tube Irrigant 100 / 100 Water Bolus Amount 350 / 350 250 / 250 Free Water Amount 500 / 500 250 / 250 250 / 250 Output: Urine Amount (Catheter) 750 / 750 700 / 700 Indwelling Urethral Catheter 750 / 750 700 / 700 Other: Date of Last Bowel Movement 10/13/18 10/13/18 10/14/18 # Bowel Movements 0 0 # Incontinent Bowel Movements 1 1 Result Diagrams: 10/15/18 04:46 10/15/18 04:46 Other Results: Laboratory Results WBC 6.3 th/mm3 (4.0-11.0) 10/15/18 04:46 RBC 3.90 mil/mm3 (4.00-5.30) L 10/15/18 04:46 Hgb 9.7 gm/dL (11.6-15.3) L 10/15/18 04:46 Hct 30.6 % (35.0-46.0) L 10/15/18 04:46 MCV 78.4 fL (80.0-100.0) L 10/15/18 04:46 MCH 24.8 pg (27.0-34.0) L 10/15/18 04:46 MCHC 31.6 % (32.0-36.0) L 10/15/18 04:46 RDW 21.4 % (11.6-17.2) H 10/15/18 04:46 Plt Count 288 th/mm3 (150-450) 10/15/18 04:46 MPV 9.6 fL (7.0-11.0) 10/15/18 04:46 Prelim Diff (Auto) Slide review pending 10/09/18 04:36 Neut % (Auto) 61.4 % (16.0-70.0) 10/15/18 04:46 Lymph % (Auto) 18.4 % (9.0-44.0) 10/15/18 04:46 [place] % (Auto) 12.6 % (0.0-8.0) H 10/15/18 04:46 Eos % (Auto) 6.8 % (0.0-4.0) H 10/15/18 04:46 Baso % (Auto) 0.8 % (0.0-2.0) 10/15/18 04:46 Neut # (Auto) 3.9 th/mm3 (1.8-7.7) 10/15/18 04:46 Lymph # (Auto) 1.2 th/mm3 (1.0-4.8) 10/15/18 04:46 [place] # (Auto) 0.8 th/mm3 (0.0-0.9) 10/15/18 04:46 Eos # (Auto) 0.4 th/mm3 (0.0-0.4) 10/15/18 04:46 Baso # (Auto) 0.1 th/mm3 (0.0-0.2) 10/15/18 04:46 WBC Differential . 10/15/18 04:46 Diff Scan Auto diff confirmed 10/09/18 04:36 Seg Neuts % (Manual) 83 % (16-70) H 09/29/18 03:24 Band Neuts % (Manual) 3 % (0-6) 09/29/18 03:24 Lymphocytes % (Manual) 7 % (9-44) L 09/29/18 03:24 Monocytes % (Manual) 4 % (0-8) 09/29/18 03:24 Eosinophils % (Manual) 3 % (0-4) 09/29/18 03:24 Abs Neuts (Manual) 13.3 th/mm3 (1.8-7.7) H 09/29/18 03:24 Differential Comment Auto diff final 10/15/18 04:46 Toxic Vacuolation Present (None) H 09/29/18 03:24 Platelet Estimate Normal (Normal) 10/09/18 04:36 Platelet Morphology Enlarged (Normal) H 10/09/18 04:36 Tear Drop Cells 1+ (None) H 09/23/18 06:13 Ovalocytes 1+ (None) H 10/01/18 04:15 Hematology Comments 10/15/18 04:46 PT 10.2 sec (9.8-11.6) 09/19/18 04:06 INR 1.0 Ratio 09/19/18 04:06 APTT 21.7 sec (23.4-31.7) L 09/19/18 04:06 Puncture Site Left radial 09/19/18 11:07 Patient Temperature 98.6 09/19/18 11:07 O2 Saturation 96 % (90-100) 09/19/18 11:07 ABG pH 7.51 (7.380-7.420) H* 09/19/18 11:07 ABG pCO2 29 mmHg (38-42) L 09/19/18 11:07 ABG pO2 134 mmHG (61-120) H 09/19/18 11:07 ABG HCO3 22 mmol/L (22-26) 09/19/18 11:07 ABG O2 Content 11.7 Vol % (12.0-20.0) L 09/19/18 11:07 ABG Base Excess -0.3 mmol/L (-2-2) 09/19/18 11:07 ABG Methemoglobin 1.7 % (0-2) 09/19/18 11:07 Vasiliy Test Present 09/19/18 11:07 Hemoglobin 8.4 G/DL (12.0-16.0) L 09/19/18 11:07 Carboxyhemoglobin 1.1 % (0-4) 09/19/18 11:07 O2 Delivery Device Ventilator 09/19/18 11:07 Vent Setting Prvc20/500/1.0/+5 09/19/18 11:07 Inspired O2 35 % 09/19/18 11:07 Critical Value Yes 09/19/18 11:07 Sodium 141 meq/L (136-145) 10/15/18 04:46 Potassium 4.3 meq/L (3.5-5.1) 10/15/18 04:46 Chloride 107 meq/L (98-107) 10/15/18 04:46 Carbon Dioxide 28.6 meq/L (21.0-32.0) 10/15/18 04:46 Anion Gap 5 meq/L (5-15) 10/15/18 04:46 BUN 13 mg/dL (7-18) 10/15/18 04:46 Creatinine 0.62 mg/dL (0.50-1.00) 10/15/18 04:46 Estimated GFR Greater than 89 mL/min (>89) 10/15/18 04:46 POC Glucose 122 mg/dl (68-110) H 10/15/18 05:52 Random Glucose 110 mg/dL (74-106) H 10/15/18 04:46 Lactic Acid 4.1 mmol/L (0.4-2.0) H* 09/19/18 04:06 Calcium 8.7 mg/dL (8.5-10.1) 10/15/18 04:46 Calcium Adj for Albumin 8.4 mg/dL (8.5-10.1) L 09/18/18 18:44 Phosphorus 2.4 mg/dL (2.5-4.9) L 10/15/18 04:46 Magnesium 2.2 mg/dL (1.5-2.5) 10/15/18 04:46 Total Bilirubin 0.2 mg/dL (0.2-1.0) 10/09/18 04:36 AST 15 U/L (15-37) 10/09/18 04:36 ALT 16 U/L (10-53) 10/09/18 04:36 Alkaline Phosphatase 89 U/L (45-117) 10/09/18 04:36 Total Creatine Kinase 123 U/L (26-192) 09/21/18 11:26 Troponin I 0.12 ng/mL (0.02-0.05) H 09/18/18 18:44 Total Protein 7.5 g/dL (6.4-8.2) 10/09/18 04:36 Albumin 2.2 g/dL (3.4-5.0) L 10/09/18 04:36 Urine Color Yellow (Yellw/Straw) 10/01/18 14:20 Urine Clarity Hazy (Clear) H 10/01/18 14:20 Urine pH 5.0 (5.0-8.5) 10/01/18 14:20 Ur Specific [place] 1.024 (1.002-1.035) 10/01/18 14:20 Urine Protein 30 mg/dL (Neg-Trace) H 10/01/18 14:20 Urine Glucose (UA) Negative mg/dL (Negative) 10/01/18 14:20 Urine Ketones Negative mg/dL (Negative) 10/01/18 14:20 Urine Occult Blood Negative (Negative) 10/01/18 14:20 Urine Nitrate Negative (Negative) 10/01/18 14:20 Urine Bilirubin Negative (Negative) 10/01/18 14:20 Urine Urobilinogen Less than 2 mg/dL (Less than 2) 10/01/18 14:20 Ur Leukocyte Esterase Trace (Negative) H 10/01/18 14:20 Urine RBC Less than 1 /hpf (0-3) 09/28/18 15:30 Urine WBC 4 /hpf (0-5) 10/01/18 14:20 Urine WBC Clumps Many (None) H 09/18/18 18:35 Ur Squamous Epith Cells <1 /hpf (0-5) 10/01/18 14:20 Triple Phos Crystals Many /hpf (None) H 09/18/18 18:35 Urine Bacteria Moderate /hpf (None) H 09/18/18 18:35 Hyaline Casts 1 /lpf (0-3) 09/28/18 15:30 Granular Casts 1 /lpf (None) 10/01/18 14:20 Urine Mucus Few /lpf (Occasional) H 10/01/18 14:20 Micro UA Comment Culture indicated 09/28/18 15:30 Ur Microscopic Review Not Reportable 10/01/18 14:20 Urine Culture Comments Culture indicated 09/28/18 15:30 Nasal Screen MRSA (PCR) Not detected (Negative) 09/18/18 22:46 Stl C.difficile DNA Amp Negative (Negative) 10/01/18 16:10 St C. diff Tox Epid 027 Negative (Negative) 10/01/18 16:10 Vancomycin Trough 11.2 mcg/mL (5.0-10.0) H 10/05/18 11:49 Random Vancomycin 19.5 Comment 09/26/18 14:26 Blood Type B Positive 09/29/18 03:30 Blood Type Recheck Required 09/29/18 03:30 Antibody Screen Negative 09/29/18 03:30 MTS Gel Crossmatch See Detail 10/01/18 03:[address] 09/18/18 18:40 CONCLUSION: 1. Stable appearance of the brain. Marked ventriculomegaly and white matter disease. . Chest CTA 09/18/18 19:26 CONCLUSION: 1. There is no evidence for pulmonary embolism. 2. Severe emphysema. 3. There is a large soft tissue mass in the right lower lobe suspicious for malignancy until proven otherwise. Venous Doppler Study 10/01/18 00:00 CONCLUSION: 1. Superficial venous thrombosis identified in the right cephalic vein. 2. No evidence of DVT. Abdomen/Pelvis CT 10/03/18 07:26 CONCLUSION: 1. There is air and fluid identified within the stomach which may account for the patient's perceived distention. No evidence of bowel obstruction or ileus. 2. Extensive atherosclerosis. 3. Persistent right lower lobe airspace consolidation. Abdomen X-Ray 10/08/18 09:15 CONCLUSION: No acute findings Chest X-Ray 10/10/18 04:00 CONCLUSION: 1. No significant interval change. 2. Stable parenchymal opacity in the right mid to lower lung zones. Objective Remarks: GENERAL: Well-nourished, well-developed patient female appearing older than stated age asleep this afternoon SKIN: Warm and dry. HEAD: Atraumatic. Normocephalic. EYES: Pupils equal and round. No scleral icterus. No injection or drainage. ENT: No nasal bleeding or discharge. Mucous membranes pink and moist. NECK: Tracheostomy in place, slight pink tinge to secretions, no active bleeding. CARDIOVASCULAR: S1S2 normal, No murmurs rubs or gallops. RESPIRATORY: Tracheostomy 8.0 [place] in situ, currently on CPAP trials B/L equal air entry GASTROINTESTINAL: Abdomen soft, non-tender,distended. PEG in place, clamped MUSCULOSKELETAL: Extremities without clubbing, cyanosis, or edema. s/p L AKA. NEUROLOGICAL: Awakens easily looks around. Blinks and squeezes hand to command. Nods head to yes and no questions Assessment and Plan - Assessment and Plan Plan: NEURO: History of stroke Off sedation. Monitor neuro status Avoid sedatives RESP: Acute respiratory failure on mechanical ventilation Emphysema Lung mass History of prior trach after stroke, has been subsequently decannulated Per Dr. De Jesus. not wishing to pursue CT-guided biopsy. Continue with vent support Daily CPAP trials. Vent bundle/nebs. Tolerated for 8 hr yesterday Percutaneous tracheostomy performed at bedside 09/29. Pulm toilet, trach care CV: HTN Monitor BP/heart rate keep MAP>65mmHg. On Cardizem 30mg q6 with hold orders. GI: Clogged PEG tube PEG in place. On Glucerna 1.5 @ 45ml/hr KUB abdomen 2/2 Normal bowel gas pattern. CT abd/pelvis 2/3: No evidence of bowel obstruction or ileus. GI consultedfor PEG tube malfunction FEN/RENAL: Acute hypernatremia- resolved Monitor renal function, I/O's, electrolytes replacement per protocol. Free water 250ml Q8, ID: HCAP UTI Urine culture from 09/18 with providentia and Proteus. BC 10/01: NGTD sputum cx 09/28 and 10/03 : No growth On abx Cefepime and Vanco, d/c Vanco, monitor for signs of infections ( Fever, WBC) C-diff PCR negative on 10/01 HEME: R brachial DVT Anemia Lovenox 60 mg subcu every 12 hours. s/p Transfuse 2u PRBC 10/01 GI is following ENDO: Diabetes mellitus Insulin sliding scale PROPH: SCD/Lovenox for DVT prophylaxis. Protonix 40mg Q12 for stress ulcer prophylaxis. 10/01 Doppler US UE b/l: Superficial venous thrombosis identified in the right cephalic vein. No evidence of DVT. 09/21 Doppler US RUE: Occlusive thrombus cephalic and brachial veins ACCESS: PIV x2. Full code Level 3 follow-up Planned transfer to LTAC when bed available
[2018-10-15] MEDS: Labetalol HCl Inj 20 MG/4 ML Vial IV.PUSH PRN (14:10)
--- NOTE | 2018-10-15 15:27 | XR ---
EXAM DATE: 10/15/2018 3:23 PM EST AGE/SEX: 68 years / Female INDICATIONS: PEG tube malfunction. Tube clogged. CLINICAL DATA: This is the patient's subsequent encounter. Patient reports that signs and symptoms h ave been present for 2 weeks and indicates a pain score of Nonresponsive. MEDICAL/SURGICAL HISTORY: . Hypertension. Diabetes. Cerebrovascular disease. . Tracheostomy. A mputation above left knee. PEG tube placement. COMPARISON: [facility], ABDOMEN 1V KUB, 10/08/2018. . FINDINGS: No dilated loops of small or large bowel. Percutaneous gastrostomy in place. The osseous structures are osteopenic. Heterotopic aspiration of about the superior hip joints bilaterally. Both hemidiaphra gms are delineated. Persistent consolidative opacity in the right lower lung. CONCLUSION: No dilated loops of small or large bowel. PEG tube in place. Electronically signed by: Juan Islas MD Board Certified Radiologist 10/15/2018 3:26 PM EST
--- NOTE | 2018-10-15 18:54 | P.PNPL ---
Subjective Interval history: 68 YOAA female who was with Hospice svc, now rescended back on Vent off sedation Tolerates TF Tolerated CPAP 4 hrs PEG tube clogged Physical Exam Vital signs: Vital Signs 10/14/18 19:50 10/14/18 20:34 10/14/18 22:00 Temperature 98.5 F Pulse Rate 97 H 100 H 101 H Respiratory Rate 20 Blood Pressure 144/64 H Pulse Oximetry 99 10/15/18 00:00 10/15/18 00:15 10/15/18 02:00 Temperature 98.9 F Pulse Rate 107 H 104 H Respiratory Rate 20 21 Blood Pressure 138/62 Pulse Oximetry 99 100 10/15/18 03:55 10/15/18 04:25 10/15/18 04:26 Temperature 98.5 F Pulse Rate 109 H 102 H Respiratory Rate 16 20 Blood Pressure 154/70 H Pulse Oximetry 100 99 10/15/18 06:00 10/15/18 07:31 10/15/18 08:00 Temperature Pulse Rate 110 H 101 H Respiratory Rate 19 27 H Blood Pressure 133/60 Pulse Oximetry 100 100 10/15/18 10:00 10/15/18 12:00 10/15/18 13:31 Temperature Pulse Rate 104 H 104 H Respiratory Rate 13 Blood Pressure 143/65 H 157/74 H Pulse Oximetry 100 10/15/18 14:00 10/15/18 14:02 10/15/18 14:15 Temperature Pulse Rate 119 H 118 H 104 H Respiratory Rate 28 H 25 H 18 Blood Pressure 182/84 H 167/76 H 147/71 H Pulse Oximetry 98 100 100 10/15/18 15:31 10/15/18 16:00 Temperature Pulse Rate 104 H Respiratory Rate 16 35 H Blood Pressure 142/72 H Pulse Oximetry 100 100 Intake & Output 10/14/18 10/15/18 10/15/18 18:59 06:59 18:59 Intake Total 1367 / 1367 1225 / 1225 350 / 350 Output Total 750 / 750 700 / 700 Balance 617 / 617 525 / 525 350 / 350 Weight 56.4 kg Intake: IV 100 / 100 200 / 200 100 / 100 Maxipime Inj 1,000 MG In NS Inj 100 / 100 200 / 200 100 / 100 100 ML @ 200 mls/hr IV.SIG Q8H [facility] Rx#:[id number] Oral 0 / 0 0 / 0 Tube Feeding 417 / 417 425 / 425 Tube Irrigant 100 / 100 Water Bolus Amount 350 / 350 250 / 250 Free Water Amount 500 / 500 250 / 250 250 / 250 Output: Urine Amount (Catheter) 750 / 750 700 / 700 Indwelling Urethral Catheter 750 / 750 700 / 700 Other: Date of Last Bowel Movement 10/13/18 10/13/18 10/15/18 # Bowel Movements 0 0 # Incontinent Bowel Movements 1 1 GENERAL: Elderly Female, on Vent SKIN: Warm and dry. HEAD: Normocephalic. EYES: No scleral icterus. No injection or drainage. NECK: Supple, trachea midline. No JVD or lymphadenopathy. Has Trach CARDIOVASCULAR: Regular rate and rhythm without murmurs, gallops, or rubs. RESPIRATORY: Breath sounds equal bilaterally. No accessory muscle use. GASTROINTESTINAL: Abdomen soft, non-tender, nondistended. Has PEG MUSCULOSKELETAL: No cyanosis, or edema. BACK: Nontender without obvious deformity. No CVA tenderness. - Urinary Catheter Management Indwelling Temp Sensing Catheter Cath placed during this visit: yes, but has since been removed by the nurse Reason for continuing: Severe pressure ulcer/wound Insertion date: 09/18/18 Insertion time: 18:50 Removal date: 09/23/18 Removal time: 16:00 Female External Cath placed during this visit: no Reason for continuing: Severe pressure ulcer/wound Straight Cath placed during this visit: no Indwelling Urethral Catheter Cath placed during this visit: yes Reason for continuing: Severe pressure ulcer/wound Insertion date: 10/14/18 Insertion time: 10:00 Assessment and Plan - Plan IMPRESSION: VDRF large Rt lung mass COPD HTN H/O CVA PLAN: Cont Vent PRVC AC 16, Fi02 35% CPAP trial daily Aerosol nebs Cont Abx Trach care. GI Planing change og PEG tube in AM. EMMA RN at .
--- NOTE | 2018-10-15 19:00 | P.PNGI ---
Subjective Interval history: Trach to mechanical ventilator GI has been asked to reevaluate patient due to clogged PEG tube Multiple attempts made by nursing staff to unclog tube Physical Exam Vital signs: Vital Signs 10/14/18 19:50 10/14/18 20:34 10/14/18 22:00 Temperature 98.5 F Pulse Rate 97 H 100 H 101 H Respiratory Rate 20 Blood Pressure 144/64 H Pulse Oximetry 99 10/15/18 00:00 10/15/18 00:15 10/15/18 02:00 Temperature 98.9 F Pulse Rate 107 H 104 H Respiratory Rate 20 21 Blood Pressure 138/62 Pulse Oximetry 99 100 10/15/18 03:55 10/15/18 04:25 10/15/18 04:26 Temperature 98.5 F Pulse Rate 109 H 102 H Respiratory Rate 16 20 Blood Pressure 154/70 H Pulse Oximetry 100 99 10/15/18 06:00 10/15/18 07:31 10/15/18 08:00 Temperature Pulse Rate 110 H 101 H Respiratory Rate 19 27 H Blood Pressure 133/60 Pulse Oximetry 100 100 10/15/18 10:00 10/15/18 12:00 10/15/18 13:31 Temperature Pulse Rate 104 H 104 H Respiratory Rate 13 Blood Pressure 143/65 H 157/74 H Pulse Oximetry 100 10/15/18 14:00 10/15/18 14:02 10/15/18 14:15 Temperature Pulse Rate 119 H 118 H 104 H Respiratory Rate 28 H 25 H 18 Blood Pressure 182/84 H 167/76 H 147/71 H Pulse Oximetry 98 100 100 10/15/18 15:31 10/15/18 16:00 Temperature Pulse Rate 104 H Respiratory Rate 16 35 H Blood Pressure 142/72 H Pulse Oximetry 100 100 Intake & Output 10/14/18 10/15/18 10/15/18 18:59 06:59 18:59 Intake Total 1367 / 1367 1225 / 1225 350 / 350 Output Total 750 / 750 700 / 700 Balance 617 / 617 525 / 525 350 / 350 Weight 56.4 kg Intake: IV 100 / 100 200 / 200 100 / 100 Maxipime Inj 1,000 MG In NS Inj 100 / 100 200 / 200 100 / 100 100 ML @ 200 mls/hr IV.SIG Q8H [facility] Rx#:[id number] Oral 0 / 0 0 / 0 Tube Feeding 417 / 417 425 / 425 Tube Irrigant 100 / 100 Water Bolus Amount 350 / 350 250 / 250 Free Water Amount 500 / 500 250 / 250 250 / 250 Output: Urine Amount (Catheter) 750 / 750 700 / 700 Indwelling Urethral Catheter 750 / 750 700 / 700 Other: Date of Last Bowel Movement 10/13/18 10/13/18 10/15/18 # Bowel Movements 0 0 # Incontinent Bowel Movements 1 1 - Constitutional chronically ill appearing - Routine HEENT Exam Head: Present: normocephalic - Routine Neck Exam Present: supple Comments: Trach present - Routine Respiratory Exam Present: patient mechanically ventilated, CTA bilaterally - Routine Abdominal Exam Present: normoactive bowel sounds, distended, ostomy. Absent: tenderness, guarding, firm Comments: No drainage or sign of infection noted at PEG tube site - Routine Skin Exam Present: dry, warm - Routine Neurological Exam Present: alert - Urinary Catheter Management Indwelling Temp Sensing Catheter Cath placed during this visit: yes, but has since been removed by the nurse Reason for continuing: Severe pressure ulcer/wound Insertion date: 09/18/18 Insertion time: 18:50 Removal date: 09/23/18 Removal time: 16:00 Female External Cath placed during this visit: no Reason for continuing: Severe pressure ulcer/wound Straight Cath placed during this visit: no Indwelling Urethral Catheter Cath placed during this visit: yes Reason for continuing: Severe pressure ulcer/wound Insertion date: 10/14/18 Insertion time: 10:00 Results - Labs CBC & Chem 7: 10/15/18 04:46 10/15/18 04:46 Laboratory Results - last 24 hr 10/14/18 10/14/18 10/15/18 18:43 23:19 04:46 WBC 6.3 RBC 3.90 L Hgb 9.7 L Hct 30.6 L MCV 78.4 L MCH 24.8 L MCHC 31.6 L RDW 21.4 H Plt Count 288 MPV 9.6 Neut % (Auto) 61.4 Lymph % (Auto) 18.4 [place] % (Auto) 12.6 H Eos % (Auto) 6.8 H Baso % (Auto) 0.8 Neut # (Auto) 3.9 Lymph # (Auto) 1.2 [place] # (Auto) 0.8 Eos # (Auto) 0.4 Baso # (Auto) 0.1 WBC Differential . Differential Comment Auto diff final Hematology Comments Sodium Potassium Chloride Carbon Dioxide Anion Gap BUN Creatinine Estimated GFR POC Glucose 117 H 122 H Random Glucose Calcium Phosphorus Magnesium 10/15/18 10/15/18 10/15/18 04:46 05:52 15:15 WBC RBC Hgb Hct MCV MCH MCHC RDW Plt Count MPV Neut % (Auto) Lymph % (Auto) [place] % (Auto) Eos % (Auto) Baso % (Auto) Neut # (Auto) Lymph # (Auto) [place] # (Auto) Eos # (Auto) Baso # (Auto) WBC Differential Differential Comment Hematology Comments Sodium 141 Potassium 4.3 Chloride 107 Carbon Dioxide 28.6 Anion Gap 5 BUN 13 Creatinine 0.62 Estimated GFR Greater than 89 POC Glucose 122 H 113 H Random Glucose 110 H Calcium 8.7 Phosphorus 2.4 L Magnesium 2.2 10/15/18 17:24 WBC RBC Hgb Hct MCV MCH MCHC RDW Plt Count MPV Neut % (Auto) Lymph % (Auto) [place] % (Auto) Eos % (Auto) Baso % (Auto) Neut # (Auto) Lymph # (Auto) [place] # (Auto) Eos # (Auto) Baso # (Auto) WBC Differential Differential Comment Hematology Comments Sodium Potassium Chloride Carbon Dioxide Anion Gap BUN Creatinine Estimated GFR POC Glucose 106 Random Glucose Calcium Phosphorus Magnesium - Imaging Impressions Abdomen X-Ray 10/15/18 14:53 CONCLUSION: No dilated loops of small or large bowel. PEG tube in place. Assessment and Plan (1) Anemia Status: Acute Code(s): D64.9 - Anemia, unspecified (2) Respiratory failure Status: Acute Code(s): J96.90 - Respiratory failure, unspecified, unspecified whether with hypoxia or hypercapnia (3) PEG (percutaneous endoscopic gastrostomy) adjustment/replacement/removal Status: Acute Code(s): Z43.1 - Encounter for attention to gastrostomy (4) Leaking PEG tube Status: Acute Code(s): K94.23 - Gastrostomy malfunction - Plan This patient is a 68-year-old female with past medical history significant for CVA, left AKA, acute respiratory failure, diabetes, dysphagia, hypertension, hemiparesis, hemiplegia and hypoxia. Surgical history significant for PEG tube placement, tracheostomy and left above-knee amputation. Patient presented to [facility] emergency room via EMS for reported hypoxemia. Of note, patient was on home hospice prior to arrival. Upon arrival, patient was intubated by ER attending for protection of airway. Our service has been consulted to evaluate patient for worsening anemia requiring blood transfusion. Patient is currently being cared for in the critical care setting post tracheostomy placement, patient mechanically ventilated. Temperature 101.5 this a.m. sinus tach on environmental monitoring technician. Patient presently having loose watery stools, dignity shield applied with noted liquid brown stool present. ICU nurse reports no obvious noted bleeding. Hemoglobin 6.7 hematocrit 23.9. Patient currently receiving 1st of 2 units of packed RBCs for transfusion. Upon exam, estimated 5 x 5 cm hematoma to the left lower quadrant of abdomen. Left upper extremity phlebitis noted. Patient currently receiving Lovenox 60 mg subcutaneously every 12 hours. Anemia-requiring blood transfusion- Microcytic anemia christina chronic 68-year-old female admitted to [facility] for hypoxemia mental status changes. Patient intubated upon arrival. Our service has been consulted for worsening anemia now requiring blood transfusion of 2 units packed RBCs. There have been no obvious signs of bleeding reported. Patient presently trach and ventilated FiO2 35%. PEG tube with Glucerna at 60 mL's per hour. Abdomen soft with bowel sounds present, ~5 x 5 cm hematoma left lower quadrant. Patient currently receiving Lovenox 60 mg subcutaneous every 12 hours. -Hemoglobin 6.7 hematocrit 23.9 WBC 11.7 platelet count 242 -Total bilirubin 0.3 AST 18 ALT 25 alk phos 103 10/02/2018 Patient awake and alert Nonverbal Mechanically ventilated via trach-on no sedation No reported or active bleeding noted-hemoglobin 9.7 hematocrit 30.9 from 10.3 and 32.7 Slight rising BUN with stable creatinine may be indicative of upper GI bleeding possible dilated specimen value 6.7 on 10/01/2018 Dignity shield noted liquid brown stool present KUB: Persistent airspace consolidation involving the right lower lobe. Abdominal bowel gas pattern is normal. Nurse reports no PEG tube feeding residuals 10/03/2018 Patient resting soundly with eyes closed Mechanically ventilated via trach on no sedation No reported bleeding 8.8 hemoglobin 9.5 hematocrit 30.4 No enteric pathogens or WBCs noted on final report for stool studies Plan -Hold tube feedings after midnight 10/04/2018 -Monitor for active bleeding -Plan of care per critical care medicine -Monitor hemoglobin and hematocrit closely -Transfuse as needed -Pantoprazole 40 mg IV every 12 -Palliative following -Stool studies pending-Cryptosporidium and Giardia -Obtain consent for EGD and colonoscopy (planning for 10/04/2018) -GoLYTELY prep (10/03/2018 @ 1600) -Supportive care -Further recommendations to follow 10/05/2018 Patient remains intubated Status post EGD colonoscopy 10/04/2018-findings of chronic gastritis no distinct source of bleeding identified on upper or lower endoscopy Assessment Chronic anemia Acute respiratory failure Hemoglobin 8.7 hematocrit 28 platelet 255 INR 1 CMP is pending Stool studies were all negative for C. difficile, WBCs stool, enteric pathogens PCR, leptospiral odium antigen, and Giardia antigen. 10/07/2018 Nausea vomiting Patient evaluated due to reported nausea and vomiting tube feeding this a.m. ICU nurse reports 40 mL residual gastric content mucoid, scant amount of possible tube feeding around PEG tube site No noted bleeding Abdomen mildly distended with bowel sounds present 10/08/2018 Assessment -patient's PEG tube was leaking overnight per ICU nurse, adjustment was done by the GI team, PEG tube was patent on aspiration with residual. Can resume tube feeding at 30 cc an hour. Monitor for leakage. 10/12/2018 Assessment Respiratory failure -patient is getting better now on CPAP Chronic gastritis Anemia chronic disease PEG tube for long-term use -functional 10/15/2018 Clogged PEG tube GI asked to reconsult due to evaluation needed for clogged PEG tube 10/15/2018 KUB: No dilated loops of small or large bowel. Percutaneous gastrostomy in place. The osseous structures are osteopenic. Heterotopic aspiration of about the superior hip joints bilaterally. Both hemidiaphragms are delineated. Persistent consolidative opacity in the right lower lung. Plan N.p.o. Obtain consent for EGD with PEG replacement Hold a.m. Lovenox dose Ancef 1 g on-call Applied binder post insertion or pillow to avoid patient from pulling on PEG Supportive care Further recommendations to follow This patient has been seen by myself and Dr. Hinkle and this note is written on his behalf - Attending Attestation Chris
[2018-10-16] MEDS: Insulin NovoLIN Regular Correctional Sugar Inj SQ SCH ×5 (01:05→23:46)
[2018-10-16] MEDS: Oral Hygiene Kit OROPHARYNG SCH ×5 (01:05→23:52)
[2018-10-16] MEDS: Pantoprazole Inj 40 MG Vial IV.PUSH SCH ×3 (03:53→23:52)
[2018-10-16] MEDS: dilTIAZem 30 MG Tablet PO SCH ×4 (03:54→22:07)
[2018-10-16] MEDS ORDERED: ceFAZolin Inj 1 GM in Sodium Chlor 0.9% Inj 100 ML IV.SIG SCH (08:00)
[2018-10-16] MEDS: Chlorhexidine 0.12% Oral Kit 15 ML UDC OROPHARYNG SCH ×2 (08:00→19:43)
[2018-10-16] MEDS: Senna/Docusate Sodium 8.6/50 MG Tablet PO SCH ×2 (09:00→20:51)
--- NOTE | 2018-10-16 09:15 | P.PNPL ---
Subjective Interval history: Patient is on ventilator via trach. Afebrile. PEG tube clogged. Physical Exam Vital signs: Vital Signs 10/15/18 10:00 10/15/18 12:00 10/15/18 13:31 Temperature Pulse Rate 104 H 104 H Respiratory Rate 13 Blood Pressure 143/65 H 157/74 H Pulse Oximetry 100 10/15/18 14:00 10/15/18 14:02 10/15/18 14:15 Temperature Pulse Rate 119 H 118 H 104 H Respiratory Rate 28 H 25 H 18 Blood Pressure 182/84 H 167/76 H 147/71 H Pulse Oximetry 98 100 100 10/15/18 15:31 10/15/18 16:00 10/15/18 20:00 Temperature 99.9 F H Pulse Rate 104 H 104 H Respiratory Rate 16 35 H 33 H Blood Pressure 142/72 H 146/60 H Pulse Oximetry 100 100 100 10/15/18 20:25 10/15/18 22:00 10/16/18 00:00 Temperature 99.6 F Pulse Rate 107 H 100 H Respiratory Rate 26 H 17 Blood Pressure 127/59 L Pulse Oximetry 100 100 10/16/18 00:11 10/16/18 02:00 10/16/18 04:00 Temperature Pulse Rate 105 H 109 H Respiratory Rate 24 23 Blood Pressure 144/64 H Pulse Oximetry 100 100 10/16/18 04:08 10/16/18 06:00 10/16/18 08:22 Temperature Pulse Rate 105 H Respiratory Rate 20 16 Blood Pressure Pulse Oximetry 100 100 Intake & Output 10/15/18 10/16/18 10/16/18 18:59 06:59 18:59 Intake Total 672 / 672 100 / 100 100 / 100 Output Total 525 / 525 450 / 450 Balance 147 / 147 -350 / -350 100 / 100 Intake: IV 100 / 100 100 / 100 100 / 100 Maxipime Inj 1,000 MG In NS Inj 100 / 100 100 / 100 100 / 100 100 ML @ 200 mls/hr IV.SIG Q8H [facility] Rx#:[id number] Tube Feeding 322 / 322 Free Water Amount 250 / 250 Output: Urine Amount (Catheter) 525 / 525 450 / 450 Indwelling Urethral Catheter 525 / 525 450 / 450 Other: Date of Last Bowel Movement 10/15/18 10/16/18 # Bowel Movements 0 # Incontinent Bowel Movements 2 - Constitutional no acute distress - Routine HEENT Exam Head: Present: normocephalic, atraumatic Eye: Present: EOMI, normal accommodation, conjunctivae pink ENT: Present: mucous membranes moist - Routine Neck Exam Present: supple, full ROM, trachea midline - Routine Respiratory Exam Present: patient mechanically ventilated, CTA bilaterally - Routine Cardiovascular Exam Present: RRR, S1, S2 - Routine Abdominal Exam Present: soft, normoactive bowel sounds - Routine Extremities Exam Present: pulses intact Comments: Left BKA noted. - Routine Neurological Exam Present: altered mental status - Routine Psychiatric Exam Present: unable to assess - Urinary Catheter Management Indwelling Temp Sensing Catheter Cath placed during this visit: yes, but has since been removed by the nurse Reason for continuing: Severe pressure ulcer/wound Insertion date: 09/18/18 Insertion time: 18:50 Removal date: 09/23/18 Removal time: 16:00 Female External Cath placed during this visit: no Reason for continuing: Severe pressure ulcer/wound Straight Cath placed during this visit: no Indwelling Urethral Catheter Cath placed during this visit: yes Reason for continuing: Severe pressure ulcer/wound Insertion date: 10/07/18 Insertion time: 10:00 Assessment and Plan - Plan 1)VDRF 2)s/p perc trach on 09/29 3)COPD 4)Lung mass 5)CVA 6)Pneumonia 7)Anemia Plan Continue with vent support keep sats >92% Bronchodilators, ICU vent bundle. SBT daily as shyann Pulm toilet, trach care d/c Cefepime ( Has been on Cefepime since 10/02) Sputum cx 2/3: Normal resp [facility]hel[facility] GI follow up- PEG tube clogged. Continue treatment plan.
[2018-10-16] MEDS: Sod Chloride 0.9% Inj 1,000 ML IV.CONT SCH (12:30)
--- NOTE | 2018-10-16 12:40 | P.PNCC ---
Subjective Subjective Remarks/Hospital Course: 09/18: 68-year-old female past medical history of stroke, left BKA, who was on home hospice until just prior to arrival, presents for an evaluation of fever and altered mental status. According to EMS the patient had not required oxygen until beginning of this week when she had gradual increased demand of her oxygen. End-tidal CO2 prior to arrival was 6. Initial room nasal cannula saturation was 91, she was placed on nonrebreather position of comfort and transfer to emergency department. EMS related that the had elected to revoke the patient's DNR and hospice care prior to transferring her to the hospital. The patient apparently is normally a GCS of 14, apparently she does take some thickened food p.o. department the patient was severely altered with GCS of 6 on arrival [id number] and was intubated by ED attending for an airway protection. 09/19: Remains sedated, orally intubated on mechanical ventilation. CT chest showed right lower lobe lung mass suspicious for malignancy. Patient has a PEG tube following previous stroke. 09/20: Remains sedated, orally intubated on mechanical ventilation. Started on tube feeds. 09/21: Remains sedated, orally intubated on mechanical ventilation. Tolerating tube feeds. Right approximately swelling noted. 09/22 Is not tolerating CPAP trial when decrease PS below 18. Daughter at bedside, says will be here later. Says they don't think they want to proceed with lung biopsy at this time, but on the other hand she discusses the possibility of re-do trach. She says they are not sure how to proceed. I suggested we meet together. Daughter states she has been bedridden since stroke about 4 years ago. Has been in [facility]. PEG due to dysphagia, does not eat. Speaks a little but daughter states she has declined significantly over the last 2 weeks. 09/23 No significant change. Patient does not tolerate CPAP. Family is very clear that they do not wish to pursue biopsy or diagnosis of suspected lung cancer. At this time, they wish to continue supportive care with vent and FULL CODE. 09/24 No change. Does not tolerate CPAP. Will diurese for positive fluid balance. 09/25 Now on CPAP 20/5 and not tolerating wean. Continue attempts at diuresis to address positive fluid balance since admission 09/26: Remains sedated, orally intubated on mechanical ventilation. Hold CPAP trials yesterday 09/27 Patient is sedated with Diprivan and intubated. Tolerating tube feeds. Afebrile. 09/28 Patient remains intubated and sedated. T;100.8 09/29 Has not made any progress towards weaning. Family offered comfort measures however they expressed desire to proceed with trach Subjective: 09/30 status post bedside tracheostomy yesterday by Dr. Gavin. Discontinued propofol drip. On CPAP 14/5 for 2 hours today. BP is low, will need to hold metoprolol and titrate back on cardizem (nurses held some doses yesterday too). Positive fluid balance but not able to diurese today due to low BP. Awaiting bed at [facility]. 10/01 Patient remains on ventilator via trach. On no sedation. Hgb 6.7 this morning and T: 100.4 at midnight. Tachycardic. 10/02 Patient is on ventilator via trach. On no sedation. Spiked fever with T: 101.5. s/p transfusion 2u PRBC yesterday. Mcmillan/thick secretions noted per nursing staff. 10/03 Patient had low grade fever with T:100.4 last night. Tube feeds held for abd distention. KUB yesterday showed normal bowel gas pattern. 10/04 Patient is on ventilator via trach. For panendoscopy today. T:99.8 last night. 10/05 Patient is on ventilator via trach, on no drips. s/p panendoscopy yesterday showed chronic gastritis with no source of bleeding identified on upper or lower endoscopy. Afebrile. 10/06 Patient remains on ventilator via trach. T:99.9 yesterday 10/07: Remains on the vent continues to fail CPAP trials due to tachypnea. No nausea vomiting overnight currently resolved. Chest tube had been restarted. Low-grade fever 100.6 10/08: Continues to fail CPAP trials. However on vent support appears comfortable. Daughter at the bedside updated. No fever today 10/09: No acute changes overnight. The patient continues to fail CPAP. Patient tolerating tube feeds. 10/10: Afebrile .patient tolerating CPAP trials this a.m.. False level was noted to be low replacement underway. Bowel movements x2 last night 10/11: Patient continues to tolerate CPAP trials 3-4 hours/day Glucerna tube feeds increased to 45 cc/an hour as recommended by dietitian. 10/12: Patient tolerating CPAP trials only 3-4 hours a day. Patient nodding head yes and no to questions, appears calm and comfortable. Medical status update provided to daughter at bedside. 10/13: Patient was noted to have cuff leak, trach ties then positioned appropriately, with resolution of cuff leak. Patient tolerating tube feeds. Continues on CPAP trials. 10/14: Afebrile. The patient tolerated CPAP trials for approximately 8 hours yesterday. 10/15: Afebrile. Peg tube clogged , multiple attempts to open ,unsuccessful. GI consulted for recommendations. 10/16: Plan for GI for placement of new PEG tube today. IV fluids initiated normal saline at 50 cc an hour. Objective Vital Signs / I&O: Vital Signs 10/15/18 13:31 10/15/18 14:00 10/15/18 14:02 Temperature Pulse Rate 119 H 118 H Respiratory Rate 28 H 25 H Blood Pressure 157/74 H 182/84 H 167/76 H Pulse Oximetry 98 100 10/15/18 14:15 10/15/18 15:31 10/15/18 16:00 Temperature Pulse Rate 104 H 104 H Respiratory Rate 18 16 35 H Blood Pressure 147/71 H 142/72 H Pulse Oximetry 100 100 100 10/15/18 20:00 10/15/18 20:25 10/15/18 22:00 Temperature 99.9 F H Pulse Rate 104 H 107 H Respiratory Rate 33 H 26 H Blood Pressure 146/60 H Pulse Oximetry 100 100 10/16/18 00:00 10/16/18 00:11 10/16/18 02:00 Temperature 99.6 F Pulse Rate 100 H 105 H Respiratory Rate 17 24 Blood Pressure 127/59 L Pulse Oximetry 100 100 10/16/18 04:00 10/16/18 04:08 10/16/18 06:00 Temperature Pulse Rate 109 H 105 H Respiratory Rate 23 20 Blood Pressure 144/64 H Pulse Oximetry 100 100 10/16/18 08:00 10/16/18 08:22 10/16/18 11:20 Temperature Pulse Rate 106 H 101 H Respiratory Rate 16 28 H Blood Pressure Pulse Oximetry 100 10/16/18 11:47 Temperature Pulse Rate Respiratory Rate 26 H Blood Pressure Pulse Oximetry 100 Intake & Output 10/15/18 10/16/18 10/16/18 18:59 06:59 18:59 Intake Total 672 / 672 100 / 100 100 / 100 Output Total 525 / 525 450 / 450 Balance 147 / 147 -350 / -350 100 / 100 Intake: IV 100 / 100 100 / 100 100 / 100 Maxipime Inj 1,000 MG In NS Inj 100 / 100 100 / 100 100 / 100 100 ML @ 200 mls/hr IV.SIG Q8H [facility] Rx#:[id number] Tube Feeding 322 / 322 Free Water Amount 250 / 250 Output: Urine Amount (Catheter) 525 / 525 450 / 450 Indwelling Urethral Catheter 525 / 525 450 / 450 Other: Date of Last Bowel Movement 10/15/18 10/16/18 10/16/18 # Bowel Movements 0 # Incontinent Bowel Movements 2 Result Diagrams: 10/15/18 04:46 10/15/18 04:46 Objective Remarks: GENERAL: Well-nourished, well-developed patient female appearing older than stated age awake and responsive SKIN: Warm and dry. HEAD: Atraumatic. Normocephalic. EYES: Pupils equal and round. No scleral icterus. No injection or drainage. ENT: No nasal bleeding or discharge. Mucous membranes pink and moist. NECK: Tracheostomy in place, slight pink tinge to secretions, no active bleeding. CARDIOVASCULAR: S1S2 normal, No murmurs rubs or gallops. RESPIRATORY: Tracheostomy 8.0 Shiley in situ, currently on CPAP trials B/L equal air entry GASTROINTESTINAL: Abdomen soft, non-tender,distended. PEG in place, clamped MUSCULOSKELETAL: Extremities without clubbing, cyanosis, or edema. s/p L AKA. NEUROLOGICAL: Awakens easily looks around. Blinks and squeezes hand to command. Nods head to yes and no questions Assessment and Plan - Assessment and Plan Plan: NEURO: History of stroke Off sedation. Monitor neuro status Avoid sedatives RESP: Acute respiratory failure on mechanical ventilation Emphysema Lung mass History of prior trach after stroke, has been subsequently decannulated Per Dr. De Jesus. not wishing to pursue CT-guided biopsy. Continue with vent support Daily CPAP trials. Vent bundle/nebs. Tolerated for 8 hr yesterday Percutaneous tracheostomy performed at bedside 09/29. Pulm toilet, trach care CV: HTN Monitor BP/heart rate keep MAP>65mmHg. On Cardizem 30mg q6 with hold orders. Labetalol as needed GI: Clogged PEG tube PEG in place. On Glucerna 1.5 @ 45ml/hr KUB abdomen 10/02 Normal bowel gas pattern. CT abd/pelvis 10/03: No evidence of bowel obstruction or ileus. GI consultedfor PEG tube malfunction. Land replacement of PEG tube today we will initiate normal saline IV fluids at 50 cc an FEN/RENAL: Acute hypernatremia- resolved Monitor renal function, I/O's, electrolytes replacement per protocol. Free water 250ml Q8, ID: HCAP UTI Urine culture from 09/18 with providentia and Proteus. BC 10/01: NGTD sputum cx 09/28 and 10/03 : No growth On abx Cefepime and Vanco, d/c Vanco, monitor for signs of infections ( Fever, WBC) C-diff PCR negative on 10/01 HEME: R brachial DVT Anemia Lovenox 60 mg subcu every 12 hours. s/p Transfuse 2u PRBC 10/01 GI is following ENDO: Diabetes mellitus Insulin sliding scale PROPH: SCD/Lovenox for DVT prophylaxis. Protonix 40mg Q12 for stress ulcer prophylaxis. 10/01 Doppler US UE b/l: Superficial venous thrombosis identified in the right cephalic vein. No evidence of DVT. 09/21 Doppler US RUE: Occlusive thrombus cephalic and brachial veins ACCESS: PIV x2. Full code Level 3 follow-up Planned transfer to LTAC when bed available Code Status: FULL Discussed Condition With: No family at bedside discussed with [employer]
[2018-10-16] MEDS: Labetalol HCl Inj 20 MG/4 ML Vial IV.PUSH PRN ×2 (12:41→19:43)
--- NOTE | 2018-10-16 15:21 | P.PNGI ---
Subjective Interval history: Patient continues to be mechanically ventilated via trach Tube feeding is off PEG tube obstructed <Patricia Molina - Last Filed: 10/16/18 15:22> Physical Exam Vital signs: Vital Signs 10/15/18 15:31 10/15/18 16:00 10/15/18 20:00 Temperature 99.9 F H Pulse Rate 104 H 104 H Respiratory Rate 16 35 H 33 H Blood Pressure 142/72 H 146/60 H Pulse Oximetry 100 100 100 10/15/18 20:25 10/15/18 22:00 10/16/18 00:00 Temperature 99.6 F Pulse Rate 107 H 100 H Respiratory Rate 26 H 17 Blood Pressure 127/59 L Pulse Oximetry 100 100 10/16/18 00:11 10/16/18 02:00 10/16/18 04:00 Temperature Pulse Rate 105 H 109 H Respiratory Rate 24 23 Blood Pressure 144/64 H Pulse Oximetry 100 100 10/16/18 04:08 10/16/18 06:00 10/16/18 08:00 Temperature Pulse Rate 105 H 106 H Respiratory Rate 20 Blood Pressure Pulse Oximetry 100 10/16/18 08:22 10/16/18 11:20 10/16/18 11:47 Temperature Pulse Rate 101 H Respiratory Rate 16 28 H 26 H Blood Pressure Pulse Oximetry 100 100 Intake & Output 10/15/18 10/16/18 10/16/18 18:59 06:59 18:59 Intake Total 672 / 672 100 / 100 100 / 100 Output Total 525 / 525 450 / 450 Balance 147 / 147 -350 / -350 100 / 100 Intake: IV 100 / 100 100 / 100 100 / 100 Maxipime Inj 1,000 MG In NS Inj 100 / 100 100 / 100 100 / 100 100 ML @ 200 mls/hr IV.SIG Q8H [facility] Rx#:[id number] Tube Feeding 322 / 322 Free Water Amount 250 / 250 Output: Urine Amount (Catheter) 525 / 525 450 / 450 Indwelling Urethral Catheter 525 / 525 450 / 450 Other: Date of Last Bowel Movement 10/15/18 10/16/18 10/16/18 # Bowel Movements 0 # Incontinent Bowel Movements 2 Narrative: Patient is intubated - Constitutional Comments: Intubated Managed to open eyes when called by name - Routine HEENT Exam Head: Present: normocephalic - Routine Neck Exam Present: supple, trachea midline - Routine Respiratory Exam Present: patient mechanically ventilated - Routine Cardiovascular Exam Present: RRR, S1, S2 - Routine Abdominal Exam Present: soft, normoactive bowel sounds. Absent: tenderness, distended Comments: PEG tube in place but not in use. No leakage noted around the incision site. No erythema - Routine Skin Exam Present: intact - Urinary Catheter Management Indwelling Temp Sensing Catheter Cath placed during this visit: yes, but has since been removed by the nurse Reason for continuing: Severe pressure ulcer/wound Insertion date: 09/18/18 Insertion time: 18:50 Removal date: 09/23/18 Removal time: 16:00 Female External Cath placed during this visit: no Reason for continuing: Severe pressure ulcer/wound Straight Cath placed during this visit: no Indwelling Urethral Catheter Cath placed during this visit: yes Reason for continuing: Severe pressure ulcer/wound Insertion date: 10/07/18 Insertion time: 10:00 <Patricia Molina - Last Filed: 10/16/18 15:22> Vital signs: Vital Signs 10/16/18 11:47 10/16/18 12:00 10/16/18 13:15 Temperature Pulse Rate 101 H 96 H Respiratory Rate 26 H 16 Blood Pressure 140/68 Pulse Oximetry 100 100 10/16/18 13:30 10/16/18 13:45 10/16/18 14:00 Temperature Pulse Rate 96 H 95 H 94 H Respiratory Rate 16 16 16 Blood Pressure 145/70 H 148/71 H 152/76 H Pulse Oximetry 100 100 100 10/16/18 14:15 10/16/18 14:30 10/16/18 14:45 Temperature Pulse Rate 96 H 99 H 97 H Respiratory Rate 16 16 16 Blood Pressure 153/72 H 157/67 H 151/67 H Pulse Oximetry 100 100 100 10/16/18 15:00 10/16/18 15:10 10/16/18 15:15 Temperature Pulse Rate 94 H 95 H 98 H Respiratory Rate 16 16 24 Blood Pressure 150/68 H 161/74 H Pulse Oximetry 100 100 100 10/16/18 15:30 10/16/18 15:45 10/16/18 16:00 Temperature Pulse Rate 98 H 99 H 92 H Respiratory Rate 16 16 16 Blood Pressure 151/65 H 154/70 H 162/70 H Pulse Oximetry 100 100 100 10/16/18 16:15 10/16/18 16:30 10/16/18 16:45 Temperature Pulse Rate 91 H 90 89 Respiratory Rate 16 16 16 Blood Pressure 145/66 H 139/64 150/70 H Pulse Oximetry 100 100 100 10/16/18 17:00 10/16/18 17:15 10/16/18 17:30 Temperature Pulse Rate 88 91 H 87 Respiratory Rate 16 16 16 Blood Pressure 150/70 H 154/71 H 154/71 H Pulse Oximetry 100 100 100 10/16/18 17:45 10/16/18 18:00 10/16/18 18:15 Temperature Pulse Rate 88 87 87 Respiratory Rate 16 16 16 Blood Pressure 163/72 H 154/70 H 147/67 H Pulse Oximetry 100 100 100 10/16/18 18:30 10/16/18 18:45 10/16/18 19:00 Temperature Pulse Rate 86 100 H 101 H Respiratory Rate 16 28 H 23 Blood Pressure 148/69 H 166/71 H 166/72 H Pulse Oximetry 100 100 100 10/16/18 19:15 10/16/18 20:00 10/16/18 21:03 Temperature Pulse Rate 100 H 101 H 101 H Respiratory Rate 16 18 20 Blood Pressure 157/63 H 146/66 H Pulse Oximetry 100 99 100 10/16/18 22:00 10/16/18 23:57 10/17/18 00:00 Temperature 99.8 F H Pulse Rate 97 H 109 H 112 H Respiratory Rate 17 23 Blood Pressure 135/63 Pulse Oximetry 99 100 10/17/18 02:00 10/17/18 04:00 10/17/18 04:26 Temperature 99.7 F H Pulse Rate 110 H 111 H 109 H Respiratory Rate 24 16 Blood Pressure 139/63 Pulse Oximetry 100 100 10/17/18 06:00 10/17/18 08:00 10/17/18 11:35 Temperature Pulse Rate 103 H 100 H Respiratory Rate 22 26 H Blood Pressure Pulse Oximetry 99 100 10/17/18 11:37 Temperature Pulse Rate 106 H Respiratory Rate 26 H Blood Pressure Pulse Oximetry Intake & Output 10/16/18 10/17/18 10/17/18 18:59 06:59 18:59 Intake Total 100 / 100 958 / 958 1250 / 1250 Output Total 300 / 300 250 / 250 Balance -200 / -200 708 / 708 1250 / 1250 Weight 55.8 kg Intake: IV 100 / 100 1000 / 1000 NS Inj 1,000 ML @ 50 mls/hr IV. 1000 / 1000 CONT .Q20H [facility] Rx#:[id number] Maxipime Inj 1,000 MG In NS Inj 100 / 100 100 ML @ 200 mls/hr IV.SIG Q8H [facility] Rx#:[id number] Oral 0 / 0 Tube Irrigant 208 / 208 Water Bolus Amount 500 / 500 Free Water Amount 250 / 250 250 / 250 Output: Urine Amount (Catheter) 300 / 300 250 / 250 Indwelling Urethral Catheter 300 / 300 250 / 250 Other: Date of Last Bowel Movement 10/16/18 10/16/18 10/16/18 # Incontinent Bowel Movements 1 - Urinary Catheter Management Indwelling Temp Sensing Catheter Cath placed during this visit: no Female External Cath placed during this visit: no Straight Cath placed during this visit: no Indwelling Urethral Catheter Cath placed during this visit: no <Helena Schuster - Last Filed: 10/17/18 11:44> Results - Labs CBC & Chem 7: 10/15/18 04:46 10/15/18 04:46 Laboratory Results - last 24 hr 10/15/18 10/15/18 10/15/18 15:15 17:24 23:57 POC Glucose 113 H 106 100 10/16/18 11:48 POC Glucose 109 - Imaging Impressions Abdomen X-Ray 10/15/18 14:53 CONCLUSION: No dilated loops of small or large bowel. PEG tube in place. <Patricia Molina - Last Filed: 10/16/18 15:22> - Labs CBC & Chem 7: 10/17/18 05:35 10/17/18 05:35 Laboratory Results - last 24 hr 10/16/18 10/16/18 10/16/18 11:48 18:25 23:43 WBC RBC Hgb Hct MCV MCH MCHC RDW Plt Count MPV Neut % (Auto) Lymph % (Auto) [place] % (Auto) Eos % (Auto) Baso % (Auto) Neut # (Auto) Lymph # (Auto) [place] # (Auto) Eos # (Auto) Baso # (Auto) WBC Differential Differential Comment Sodium Potassium Chloride Carbon Dioxide Anion Gap BUN Creatinine Estimated GFR POC Glucose 109 76 107 Random Glucose Calcium Phosphorus Magnesium 10/17/18 10/17/18 05:35 05:35 WBC 5.6 RBC 3.66 L Hgb 9.1 L Hct 29.1 L MCV 79.6 L MCH 24.8 L MCHC 31.2 L RDW 21.3 H Plt Count 301 MPV 8.9 Neut % (Auto) 62.4 Lymph % (Auto) 18.3 [place] % (Auto) 15.3 H Eos % (Auto) 3.3 Baso % (Auto) 0.7 Neut # (Auto) 3.5 Lymph # (Auto) 1.0 [place] # (Auto) 0.8 Eos # (Auto) 0.2 Baso # (Auto) 0.0 WBC Differential . Differential Comment Auto diff final Sodium 141 Potassium 3.8 Chloride 107 Carbon Dioxide 27.7 Anion Gap 6 BUN 9 Creatinine 0.59 Estimated GFR Greater than 89 POC Glucose Random Glucose 90 Calcium 8.5 Phosphorus 2.4 L Magnesium 2.0 - Imaging Impressions Chest X-Ray 10/16/18 19:56 CONCLUSION: Stable appearance of mass in right lower lobe. Slight increase in basilar airspace disease since October 10. <Helena Schuster - Last Filed: 10/17/18 11:44> Assessment and Plan (1) Anemia Status: Acute Code(s): D64.9 - Anemia, unspecified (2) Respiratory failure Status: Acute Code(s): J96.90 - Respiratory failure, unspecified, unspecified whether with hypoxia or hypercapnia (3) PEG (percutaneous endoscopic gastrostomy) adjustment/replacement/removal Status: Acute Code(s): Z43.1 - Encounter for attention to gastrostomy (4) Leaking PEG tube Status: Acute Code(s): K94.23 - Gastrostomy malfunction - Plan This patient is a 68-year-old female with past medical history significant for CVA, left AKA, acute respiratory failure, diabetes, dysphagia, hypertension, hemiparesis, hemiplegia and hypoxia. Surgical history significant for PEG tube placement, tracheostomy and left above-knee amputation. Patient presented to [facility] emergency room via EMS for reported hypoxemia. Of note, patient was on home hospice prior to arrival. Upon arrival, patient was intubated by ER attending for protection of airway. Our service has been consulted to evaluate patient for worsening anemia requiring blood transfusion. Patient is currently being cared for in the critical care setting post tracheostomy placement, patient mechanically ventilated. Temperature 101.5 this a.m. sinus tach on pvc monitor. Patient presently having loose watery stools, dignity shield applied with noted liquid brown stool present. ICU nurse reports no obvious noted bleeding. Hemoglobin 6.7 hematocrit 23.9. Patient currently receiving 1st of 2 units of packed RBCs for transfusion. Upon exam, estimated 5 x 5 cm hematoma to the left lower quadrant of abdomen. Left upper extremity phlebitis noted. Patient currently receiving Lovenox 60 mg subcutaneously every 12 hours. Anemia-requiring blood transfusion- Microcytic anemia olivialey chronic 68-year-old female admitted to [facility] for hypoxemia mental status changes. Patient intubated upon arrival. Our service has been consulted for worsening anemia now requiring blood transfusion of 2 units packed RBCs. There have been no obvious signs of bleeding reported. Patient presently trach and ventilated FiO2 35%. PEG tube with Glucerna at 60 mL's per hour. Abdomen soft with bowel sounds present, ~5 x 5 cm hematoma left lower quadrant. Patient currently receiving Lovenox 60 mg subcutaneous every 12 hours. -Hemoglobin 6.7 hematocrit 23.9 WBC 11.7 platelet count 242 -Total bilirubin 0.3 AST 18 ALT 25 alk phos 103 10/02/2018 Patient awake and alert Nonverbal Mechanically ventilated via trach-on no sedation No reported or active bleeding noted-hemoglobin 9.7 hematocrit 30.9 from 10.3 and 32.7 Slight rising BUN with stable creatinine may be indicative of upper GI bleeding possible dilated specimen value 6.7 on 10/01/2018 Dignity shield noted liquid brown stool present KUB: Persistent airspace consolidation involving the right lower lobe. Abdominal bowel gas pattern is normal. Nurse reports no PEG tube feeding residuals 10/03/2018 Patient resting soundly with eyes closed Mechanically ventilated via trach on no sedation No reported bleeding 8.8 hemoglobin 9.5 hematocrit 30.4 No enteric pathogens or WBCs noted on final report for stool studies Plan -Hold tube feedings after midnight 10/04/2018 -Monitor for active bleeding -Plan of care per critical care medicine -Monitor hemoglobin and hematocrit closely -Transfuse as needed -Pantoprazole 40 mg IV every 12 -Palliative following -Stool studies pending-Cryptosporidium and Giardia -Obtain consent for EGD and colonoscopy (planning for 10/04/2018) -GoLYTELY prep (10/03/2018 @ 1600) -Supportive care -Further recommendations to follow 10/05/2018 Patient remains intubated Status post EGD colonoscopy 10/04/2018-findings of chronic gastritis no distinct source of bleeding identified on upper or lower endoscopy Assessment Chronic anemia Acute respiratory failure Hemoglobin 8.7 hematocrit 28 platelet 255 INR 1 CMP is pending Stool studies were all negative for C. difficile, WBCs stool, enteric pathogens PCR, leptospiral odium antigen, and Giardia antigen. 10/07/2018 Nausea vomiting Patient evaluated due to reported nausea and vomiting tube feeding this a.m. ICU nurse reports 40 mL residual gastric content mucoid, scant amount of possible tube feeding around PEG tube site No noted bleeding Abdomen mildly distended with bowel sounds present 10/08/2018 Assessment -patient's PEG tube was leaking overnight per ICU nurse, adjustment was done by the GI team, PEG tube was patent on aspiration with residual. Can resume tube feeding at 30 cc an hour. Monitor for leakage. 10/12/2018 Assessment Respiratory failure -patient is getting better now on CPAP Chronic gastritis Anemia chronic disease PEG tube for long-term use -functional 10/15/2018 Clogged PEG tube GI asked to reconsult due to evaluation needed for clogged PEG tube 10/15/2018 KUB: No dilated loops of small or large bowel. Percutaneous gastrostomy in place. The osseous structures are osteopenic. Heterotopic aspiration of about the superior hip joints bilaterally. Both hemidiaphragms are delineated. Persistent consolidative opacity in the right lower lung. 10/16/2018 Replacement of PEG tube Patient scheduled for Thursday replacement of the PEG Hemoglobin 9.7 hematocrit 30.6 platelet 288 INR 1 Plan N.p.o. Obtain consent for EGD with PEG replacement Hold a.m. Lovenox dose for Thursday Ancef 1 g on-call Please insert NGT for resumption of Tube feeding PPI Monitor labs Applied binder post insertion or pillow to avoid patient from pulling on PEG Supportive care Further recommendations to follow This patient has been seen by myself and Dr. Schuster and this note is written on his behalf - Attending Attestation DR. Schuster <Patricia Molina - Last Filed: 10/16/18 15:22> (1) Anemia Status: Acute Code(s): D64.9 - Anemia, unspecified (2) Respiratory failure Status: Acute Code(s): J96.90 - Respiratory failure, unspecified, unspecified whether with hypoxia or hypercapnia (3) PEG (percutaneous endoscopic gastrostomy) adjustment/replacement/removal Status: Acute Code(s): Z43.1 - Encounter for attention to gastrostomy (4) Leaking PEG tube Status: Acute Code(s): K94.23 - Gastrostomy malfunction - Plan Seen and examined with CALL CENTER AGENT, EGD/PEG thursday. NG for feeding over the weekend. <Helena Schuster - Last Filed: 10/17/18 11:44>
--- NOTE | 2018-10-16 20:28 | XR ---
EXAM DATE: 10/16/2018 8:25 PM EST AGE/SEX: 68 years / Female INDICATIONS: NG tube placement. CLINICAL DATA: This is the patient's subsequent encounter. Patient reports that signs and symptoms h ave been present for 2 weeks and indicates a pain score of Nonresponsive. MEDICAL/SURGICAL HISTORY: . Diabetes. Hypertension. Acute respiratory failure on mechanical yousif tilation. CVA. Dysphagia. Hemiplegia. Hypoxia. . Amputation above left knee. PEG tube placement. T racheostomy. COMPARISON: [facility] – [place] 1V SINGLE AP, 10/10/2018. . FINDINGS: Tracheostomy in good position. NG enters stomach. Masslike consolidation in the right mid lung relati vely stable with slight increase in basilar airspace disease since October 10. CONCLUSION: Stable appearance of mass in right lower lobe. Slight increase in basilar airspace disease since . Electronically signed by: Pipo De Leon MD Board Certified Radiologist 10/16/2018 8:27 PM EST
[2018-10-17] MEDS: dilTIAZem 30 MG Tablet PO SCH ×4 (03:18→21:53)
[2018-10-17] MEDS: Oral Hygiene Kit OROPHARYNG SCH ×4 (03:19→23:52)
[2018-10-17] MEDS: Insulin NovoLIN Regular Correctional Sugar Inj SQ SCH ×4 (06:09→23:51)
[2018-10-17 06:22] LABS: Baso % (Auto) 0.7 % (0.0-2.0); Eos # (Auto) 0.2 th/mm3 (0.0-0.4); Eos % (Auto) 3.3 % (0.0-4.0); Hematocrit 29.1 % (35.0-46.0); Hemoglobin 9.1 gm/dL (11.6-15.3); Lymph % (Auto) 18.3 % (9.0-44.0); Mean Corpuscular HGB Conc 31.2 % (32.0-36.0); Mean Corpuscular Hemoglobin 24.8 pg (27.0-34.0); Mean Corpuscular Volume 79.6 fL (80.0-100.0); Mean Platelet Volume 8.9 fL (7.0-11.0); Mono # (Auto) 0.8 th/mm3 (0.0-0.9); Mono % (Auto) 15.3 % (0.0-8.0); Neut # (Auto) 3.5 th/mm3 (1.8-7.7); Neut % (Auto) 62.4 % (16.0-70.0); Platelet Count 301 th/mm3 (150-450); Red Blood Count 3.66 mil/mm3 (4.00-5.30); Red Cell Distribution Width 21.3 % (11.6-17.2); White Blood Count 5.6 th/mm3 (4.0-11.0)
[2018-10-17 07:02] LABS: Anion Gap 6 meq/L (5-15); Blood Urea Nitrogen 9 mg/dL (7-18); Calcium 8.5 mg/dL (8.5-10.1); Carbon Dioxide 27.7 meq/L (21.0-32.0); Chloride 107 meq/L (98-107); Glomerular Filtration Rate Greater Than 89 mL/min (>89); Glucose,Random 90 mg/dL (74-106); Potassium 3.8 meq/L (3.5-5.1); Sodium 141 meq/L (136-145)
[2018-10-17 07:03] LABS: Phosphorus 2.4 mg/dL (2.5-4.9)
--- NOTE | 2018-10-17 08:27 | P.PNPL ---
Subjective Interval history: Patient is on ventilator via trach. Afebrile. On tube feeds via NGT. Physical Exam Vital signs: Vital Signs 10/16/18 08:22 10/16/18 10:00 10/16/18 11:20 Temperature Pulse Rate 100 H 101 H Respiratory Rate 16 28 H Blood Pressure Pulse Oximetry 100 10/16/18 11:47 10/16/18 12:00 10/16/18 13:15 Temperature Pulse Rate 101 H 96 H Respiratory Rate 26 H 16 Blood Pressure 140/68 Pulse Oximetry 100 100 10/16/18 13:30 10/16/18 13:45 10/16/18 14:00 Temperature Pulse Rate 96 H 95 H 94 H Respiratory Rate 16 16 16 Blood Pressure 145/70 H 148/71 H 152/76 H Pulse Oximetry 100 100 100 10/16/18 14:15 10/16/18 14:30 10/16/18 14:45 Temperature Pulse Rate 96 H 99 H 97 H Respiratory Rate 16 16 16 Blood Pressure 153/72 H 157/67 H 151/67 H Pulse Oximetry 100 100 100 10/16/18 15:00 10/16/18 15:10 10/16/18 15:15 Temperature Pulse Rate 94 H 95 H 98 H Respiratory Rate 16 16 24 Blood Pressure 150/68 H 161/74 H Pulse Oximetry 100 100 100 10/16/18 15:30 10/16/18 15:45 10/16/18 16:00 Temperature Pulse Rate 98 H 99 H 92 H Respiratory Rate 16 16 16 Blood Pressure 151/65 H 154/70 H 162/70 H Pulse Oximetry 100 100 100 10/16/18 16:15 10/16/18 16:30 10/16/18 16:45 Temperature Pulse Rate 91 H 90 89 Respiratory Rate 16 16 16 Blood Pressure 145/66 H 139/64 150/70 H Pulse Oximetry 100 100 100 10/16/18 17:00 10/16/18 17:15 10/16/18 17:30 Temperature Pulse Rate 88 91 H 87 Respiratory Rate 16 16 16 Blood Pressure 150/70 H 154/71 H 154/71 H Pulse Oximetry 100 100 100 10/16/18 17:45 10/16/18 18:00 10/16/18 18:15 Temperature Pulse Rate 88 87 87 Respiratory Rate 16 16 16 Blood Pressure 163/72 H 154/70 H 147/67 H Pulse Oximetry 100 100 100 10/16/18 18:30 10/16/18 18:45 10/16/18 19:00 Temperature Pulse Rate 86 100 H 101 H Respiratory Rate 16 28 H 23 Blood Pressure 148/69 H 166/71 H 166/72 H Pulse Oximetry 100 100 100 10/16/18 19:15 10/16/18 20:00 10/16/18 21:03 Temperature Pulse Rate 100 H 101 H 101 H Respiratory Rate 16 18 20 Blood Pressure 157/63 H 146/66 H Pulse Oximetry 100 99 100 10/16/18 22:00 10/16/18 23:57 10/17/18 00:00 Temperature 99.8 F H Pulse Rate 97 H 109 H 112 H Respiratory Rate 17 23 Blood Pressure 135/63 Pulse Oximetry 99 100 10/17/18 02:00 10/17/18 04:00 10/17/18 04:26 Temperature 99.7 F H Pulse Rate 110 H 111 H 109 H Respiratory Rate 24 16 Blood Pressure 139/63 Pulse Oximetry 100 100 10/17/18 06:00 Temperature Pulse Rate 103 H Respiratory Rate Blood Pressure Pulse Oximetry Intake & Output 10/16/18 10/17/18 10/17/18 18:59 06:59 18:59 Intake Total 100 / 100 958 / 958 Output Total 300 / 300 250 / 250 Balance -200 / -200 708 / 708 Weight 55.8 kg Intake: IV 100 / 100 Maxipime Inj 1,000 MG In NS Inj 100 / 100 100 ML @ 200 mls/hr IV.SIG Q8H [facility] Rx#:[id number] Oral 0 / 0 Tube Irrigant 208 / 208 Water Bolus Amount 500 / 500 Free Water Amount 250 / 250 Output: Urine Amount (Catheter) 300 / 300 250 / 250 Indwelling Urethral Catheter 300 / 300 250 / 250 Other: Date of Last Bowel Movement 10/16/18 10/16/18 # Incontinent Bowel Movements 1 - Constitutional no acute distress, obese - Routine HEENT Exam Head: Present: normocephalic, atraumatic Eye: Present: EOMI, PERRL, normal accommodation, conjunctivae pink ENT: Present: mucous membranes moist - Routine Neck Exam Present: supple, trachea midline - Routine Respiratory Exam Present: patient mechanically ventilated, CTA bilaterally - Routine Cardiovascular Exam Present: RRR, S1, S2 - Routine Abdominal Exam Present: soft, normoactive bowel sounds - Routine Extremities Exam Comments: Left BKA - Routine Neurological Exam Present: altered mental status - Urinary Catheter Management Indwelling Temp Sensing Catheter Cath placed during this visit: yes, but has since been removed by the nurse Reason for continuing: Severe pressure ulcer/wound Insertion date: 09/18/18 Insertion time: 18:50 Removal date: 09/23/18 Removal time: 16:00 Female External Cath placed during this visit: no Reason for continuing: Severe pressure ulcer/wound Straight Cath placed during this visit: no Indwelling Urethral Catheter Cath placed during this visit: yes Reason for continuing: Severe pressure ulcer/wound Insertion date: 10/07/18 Insertion time: 10:00 Assessment and Plan - Plan 1)VDRF 2)s/p perc trach on 09/29 3)COPD 4)Lung mass-RLL 5)CVA 6)Pneumonia 7)Anemia Plan Continue with vent support keep sats >92% Bronchodilators, ICU vent bundle. SBT daily as shyann Pulm toilet, trach care CXR 10/16: Stable appearance of mass in right lower lobe. Basilar airspace disease Off abx s/p Cefepime course. Monitor for signs of infections ( fever, WBC) Sputum cx 2/: Normal resp michelle GI follow up- For EGD and PEG tube replacement tomorrow. Nutrition support- on tube feeds via NGT. Continue treatment plan.
[2018-10-17] MEDS: Chlorhexidine 0.12% Oral Kit 15 ML UDC OROPHARYNG SCH ×2 (09:16→20:35)
[2018-10-17] MEDS: Enoxaparin Inj 60 MG/0.6 ML Syringe SQ SCH ×2 (09:17→20:35)
[2018-10-17] MEDS: Sod Chloride 0.9% Inj 1,000 ML IV.CONT SCH (09:17)
[2018-10-17] MEDS: Senna/Docusate Sodium 8.6/50 MG Tablet PO SCH ×2 (09:18→20:35)
--- NOTE | 2018-10-17 10:55 | P.PNGI ---
Subjective Interval history: Patient continues in the intensive care setting with ventilator management Has tube feeds running at 40 cc an hour via NG tube secondary to PEG tube obstruction. Plans for replacement Thursday a.m. Labs reviewed current hemoglobin 9.1, patient responds to minimal and any painful stimuli Ventilator managed Abdomen round, soft, active bowel sounds No obvious nausea or vomiting <Kaci Johns M - Last Filed: 10/17/18 10:50> Physical Exam Vital signs: Vital Signs 10/16/18 11:20 10/16/18 11:47 10/16/18 12:00 Temperature Pulse Rate 101 H 101 H Respiratory Rate 28 H 26 H Blood Pressure Pulse Oximetry 100 10/16/18 13:15 10/16/18 13:30 10/16/18 13:45 Temperature Pulse Rate 96 H 96 H 95 H Respiratory Rate 16 16 16 Blood Pressure 140/68 145/70 H 148/71 H Pulse Oximetry 100 100 100 10/16/18 14:00 10/16/18 14:15 10/16/18 14:30 Temperature Pulse Rate 94 H 96 H 99 H Respiratory Rate 16 16 16 Blood Pressure 152/76 H 153/72 H 157/67 H Pulse Oximetry 100 100 100 10/16/18 14:45 10/16/18 15:00 10/16/18 15:10 Temperature Pulse Rate 97 H 94 H 95 H Respiratory Rate 16 16 16 Blood Pressure 151/67 H 150/68 H Pulse Oximetry 100 100 100 10/16/18 15:15 10/16/18 15:30 10/16/18 15:45 Temperature Pulse Rate 98 H 98 H 99 H Respiratory Rate 24 16 16 Blood Pressure 161/74 H 151/65 H 154/70 H Pulse Oximetry 100 100 100 10/16/18 16:00 10/16/18 16:15 10/16/18 16:30 Temperature Pulse Rate 92 H 91 H 90 Respiratory Rate 16 16 16 Blood Pressure 162/70 H 145/66 H 139/64 Pulse Oximetry 100 100 100 10/16/18 16:45 10/16/18 17:00 10/16/18 17:15 Temperature Pulse Rate 89 88 91 H Respiratory Rate 16 16 16 Blood Pressure 150/70 H 150/70 H 154/71 H Pulse Oximetry 100 100 100 10/16/18 17:30 10/16/18 17:45 10/16/18 18:00 Temperature Pulse Rate 87 88 87 Respiratory Rate 16 16 16 Blood Pressure 154/71 H 163/72 H 154/70 H Pulse Oximetry 100 100 100 10/16/18 18:15 10/16/18 18:30 10/16/18 18:45 Temperature Pulse Rate 87 86 100 H Respiratory Rate 16 16 28 H Blood Pressure 147/67 H 148/69 H 166/71 H Pulse Oximetry 100 100 100 10/16/18 19:00 10/16/18 19:15 10/16/18 20:00 Temperature Pulse Rate 101 H 100 H 101 H Respiratory Rate 23 16 18 Blood Pressure 166/72 H 157/63 H 146/66 H Pulse Oximetry 100 100 99 10/16/18 21:03 10/16/18 22:00 10/16/18 23:57 Temperature Pulse Rate 101 H 97 H 109 H Respiratory Rate 20 17 Blood Pressure Pulse Oximetry 100 99 10/17/18 00:00 10/17/18 02:00 10/17/18 04:00 Temperature 99.8 F H 99.7 F H Pulse Rate 112 H 110 H 111 H Respiratory Rate 23 24 Blood Pressure 135/63 139/63 Pulse Oximetry 100 100 10/17/18 04:26 10/17/18 06:00 10/17/18 08:00 Temperature Pulse Rate 109 H 103 H 100 H Respiratory Rate 16 22 Blood Pressure Pulse Oximetry 100 99 Intake & Output 10/16/18 10/17/18 10/17/18 18:59 06:59 18:59 Intake Total 100 / 100 958 / 958 1250 / 1250 Output Total 300 / 300 250 / 250 Balance -200 / -200 708 / 708 1250 / 1250 Weight 55.8 kg Intake: IV 100 / 100 1000 / 1000 NS Inj 1,000 ML @ 50 mls/hr IV. 1000 / 1000 CONT .Q20H JORGE Rx#:[id number] Maxipime Inj 1,000 MG In NS Inj 100 / 100 100 ML @ 200 mls/hr IV.SIG Q8H JORGE Rx#:[id number] Oral 0 / 0 Tube Irrigant 208 / 208 Water Bolus Amount 500 / 500 Free Water Amount 250 / 250 250 / 250 Output: Urine Amount (Catheter) 300 / 300 250 / 250 Indwelling Urethral Catheter 300 / 300 250 / 250 Other: Date of Last Bowel Movement 10/16/18 10/16/18 10/16/18 # Incontinent Bowel Movements 1 - Constitutional mild distress, cachectic, disheveled, obtunded - Routine HEENT Exam Head: Present: normocephalic ENT: Present: mucous membranes moist - Routine Neck Exam Present: supple - Routine Respiratory Exam Present: patient mechanically ventilated, decreased breath sounds, rhonchi - Routine Cardiovascular Exam Present: S1, S2 - Routine Abdominal Exam Present: distended (Mild, soft, soft bowel sounds present, tolerating tube feed with 10-20 cc residual via NG tube), drain (PEG tube drain obstructed) - Urinary Catheter Management Indwelling Temp Sensing Catheter Cath placed during this visit: yes, but has since been removed by the nurse Reason for continuing: Severe pressure ulcer/wound Insertion date: 09/18/18 Insertion time: 18:50 Removal date: 09/23/18 Removal time: 16:00 Female External Cath placed during this visit: no Reason for continuing: Severe pressure ulcer/wound Straight Cath placed during this visit: no Indwelling Urethral Catheter Cath placed during this visit: yes Reason for continuing: Severe pressure ulcer/wound Insertion date: 10/07/18 Insertion time: 10:00 <Kaci Johns - Last Filed: 10/17/18 10:50> Vital signs: Vital Signs 10/16/18 13:15 10/16/18 13:30 10/16/18 13:45 Temperature Pulse Rate 96 H 96 H 95 H Respiratory Rate 16 16 16 Blood Pressure 140/68 145/70 H 148/71 H Pulse Oximetry 100 100 100 10/16/18 14:00 10/16/18 14:15 10/16/18 14:30 Temperature Pulse Rate 94 H 96 H 99 H Respiratory Rate 16 16 16 Blood Pressure 152/76 H 153/72 H 157/67 H Pulse Oximetry 100 100 100 10/16/18 14:45 10/16/18 15:00 10/16/18 15:10 Temperature Pulse Rate 97 H 94 H 95 H Respiratory Rate 16 16 16 Blood Pressure 151/67 H 150/68 H Pulse Oximetry 100 100 100 10/16/18 15:15 10/16/18 15:30 10/16/18 15:45 Temperature Pulse Rate 98 H 98 H 99 H Respiratory Rate 24 16 16 Blood Pressure 161/74 H 151/65 H 154/70 H Pulse Oximetry 100 100 100 10/16/18 16:00 10/16/18 16:15 10/16/18 16:30 Temperature Pulse Rate 92 H 91 H 90 Respiratory Rate 16 16 16 Blood Pressure 162/70 H 145/66 H 139/64 Pulse Oximetry 100 100 100 10/16/18 16:45 10/16/18 17:00 10/16/18 17:15 Temperature Pulse Rate 89 88 91 H Respiratory Rate 16 16 16 Blood Pressure 150/70 H 150/70 H 154/71 H Pulse Oximetry 100 100 100 10/16/18 17:30 10/16/18 17:45 10/16/18 18:00 Temperature Pulse Rate 87 88 87 Respiratory Rate 16 16 16 Blood Pressure 154/71 H 163/72 H 154/70 H Pulse Oximetry 100 100 100 10/16/18 18:15 10/16/18 18:30 10/16/18 18:45 Temperature Pulse Rate 87 86 100 H Respiratory Rate 16 16 28 H Blood Pressure 147/67 H 148/69 H 166/71 H Pulse Oximetry 100 100 100 10/16/18 19:00 10/16/18 19:15 10/16/18 20:00 Temperature Pulse Rate 101 H 100 H 101 H Respiratory Rate 23 16 18 Blood Pressure 166/72 H 157/63 H 146/66 H Pulse Oximetry 100 100 99 10/16/18 21:03 10/16/18 22:00 10/16/18 23:57 Temperature Pulse Rate 101 H 97 H 109 H Respiratory Rate 20 17 Blood Pressure Pulse Oximetry 100 99 10/17/18 00:00 10/17/18 02:00 10/17/18 04:00 Temperature 99.8 F H 99.7 F H Pulse Rate 112 H 110 H 111 H Respiratory Rate 23 24 Blood Pressure 135/63 139/63 Pulse Oximetry 100 100 10/17/18 04:26 10/17/18 06:00 10/17/18 08:00 Temperature Pulse Rate 109 H 103 H 100 H Respiratory Rate 16 22 Blood Pressure Pulse Oximetry 100 99 10/17/18 11:35 10/17/18 11:37 Temperature Pulse Rate 106 H Respiratory Rate 26 H 26 H Blood Pressure Pulse Oximetry 100 Intake & Output 10/16/18 10/17/18 10/17/18 18:59 06:59 18:59 Intake Total 100 / 100 958 / 958 1250 / 1250 Output Total 300 / 300 250 / 250 Balance -200 / -200 708 / 708 1250 / 1250 Weight 55.8 kg Intake: IV 100 / 100 1000 / 1000 NS Inj 1,000 ML @ 50 mls/hr IV. 1000 / 1000 CONT .Q20H JORGE Rx#:[id number] Maxipime Inj 1,000 MG In NS Inj 100 / 100 100 ML @ 200 mls/hr IV.SIG Q8H JORGE Rx#:[id number] Oral 0 / 0 Tube Irrigant 208 / 208 Water Bolus Amount 500 / 500 Free Water Amount 250 / 250 250 / 250 Output: Urine Amount (Catheter) 300 / 300 250 / 250 Indwelling Urethral Catheter 300 / 300 250 / 250 Other: Date of Last Bowel Movement 10/16/18 10/16/18 10/16/18 # Incontinent Bowel Movements 1 - Urinary Catheter Management Indwelling Temp Sensing Catheter Cath placed during this visit: no Female External Cath placed during this visit: no Straight Cath placed during this visit: no Indwelling Urethral Catheter Cath placed during this visit: no <Helena Schuster - Last Filed: 10/17/18 12:08> Results - Labs CBC & Chem 7: 10/17/18 05:35 10/17/18 05:35 Laboratory Results - last 24 hr 10/16/18 10/16/18 10/16/18 11:48 18:25 23:43 WBC RBC Hgb Hct MCV MCH MCHC RDW Plt Count MPV Neut % (Auto) Lymph % (Auto) Collier % (Auto) Eos % (Auto) Baso % (Auto) Neut # (Auto) Lymph # (Auto) Collier # (Auto) Eos # (Auto) Baso # (Auto) WBC Differential Differential Comment Sodium Potassium Chloride Carbon Dioxide Anion Gap BUN Creatinine Estimated GFR POC Glucose 109 76 107 Random Glucose Calcium Phosphorus Magnesium 10/17/18 10/17/18 05:35 05:35 WBC 5.6 RBC 3.66 L Hgb 9.1 L Hct 29.1 L MCV 79.6 L MCH 24.8 L MCHC 31.2 L RDW 21.3 H Plt Count 301 MPV 8.9 Neut % (Auto) 62.4 Lymph % (Auto) 18.3 Collier % (Auto) 15.3 H Eos % (Auto) 3.3 Baso % (Auto) 0.7 Neut # (Auto) 3.5 Lymph # (Auto) 1.0 Collier # (Auto) 0.8 Eos # (Auto) 0.2 Baso # (Auto) 0.0 WBC Differential . Differential Comment Auto diff final Sodium 141 Potassium 3.8 Chloride 107 Carbon Dioxide 27.7 Anion Gap 6 BUN 9 Creatinine 0.59 Estimated GFR Greater than 89 POC Glucose Random Glucose 90 Calcium 8.5 Phosphorus 2.4 L Magnesium 2.0 - Imaging Impressions Chest X-Ray 10/16/18 19:56 CONCLUSION: Stable appearance of mass in right lower lobe. Slight increase in basilar airspace disease since October 10. <Kaci Johns - Last Filed: 10/17/18 10:50> - Labs CBC & Chem 7: 10/17/18 05:35 10/17/18 05:35 Laboratory Results - last 24 hr 10/16/18 10/16/18 10/17/18 18:25 23:43 05:35 WBC RBC Hgb Hct MCV MCH MCHC RDW Plt Count MPV Neut % (Auto) Lymph % (Auto) Collier % (Auto) Eos % (Auto) Baso % (Auto) Neut # (Auto) Lymph # (Auto) Collier # (Auto) Eos # (Auto) Baso # (Auto) WBC Differential Differential Comment Sodium 141 Potassium 3.8 Chloride 107 Carbon Dioxide 27.7 Anion Gap 6 BUN 9 Creatinine 0.59 Estimated GFR Greater than 89 POC Glucose 76 107 Random Glucose 90 Calcium 8.5 Phosphorus 2.4 L Magnesium 2.0 10/17/18 05:35 WBC 5.6 RBC 3.66 L Hgb 9.1 L Hct 29.1 L MCV 79.6 L MCH 24.8 L MCHC 31.2 L RDW 21.3 H Plt Count 301 MPV 8.9 Neut % (Auto) 62.4 Lymph % (Auto) 18.3 Collier % (Auto) 15.3 H Eos % (Auto) 3.3 Baso % (Auto) 0.7 Neut # (Auto) 3.5 Lymph # (Auto) 1.0 Collier # (Auto) 0.8 Eos # (Auto) 0.2 Baso # (Auto) 0.0 WBC Differential . Differential Comment Auto diff final Sodium Potassium Chloride Carbon Dioxide Anion Gap BUN Creatinine Estimated GFR POC Glucose Random Glucose Calcium Phosphorus Magnesium - Imaging Impressions Chest X-Ray 10/16/18 19:56 CONCLUSION: Stable appearance of mass in right lower lobe. Slight increase in basilar airspace disease since October 10. <LandenHelena mckinney - Last Filed: 10/17/18 12:08> Assessment and Plan (1) Anemia Status: Acute Code(s): D64.9 - Anemia, unspecified (2) Respiratory failure Status: Acute Code(s): J96.90 - Respiratory failure, unspecified, unspecified whether with hypoxia or hypercapnia (3) PEG (percutaneous endoscopic gastrostomy) adjustment/replacement/removal Status: Acute Code(s): Z43.1 - Encounter for attention to gastrostomy (4) Leaking PEG tube Status: Acute Code(s): K94.23 - Gastrostomy malfunction - Plan This patient is a 68-year-old female with past medical history significant for CVA, left AKA, acute respiratory failure, diabetes, dysphagia, hypertension, hemiparesis, hemiplegia and hypoxia. Surgical history significant for PEG tube placement, tracheostomy and left above-knee amputation. Patient presented to [facility] emergency room via EMS for reported hypoxemia. Of note, patient was on home hospice prior to arrival. Upon arrival, patient was intubated by ER attending for protection of airway. Our service has been consulted to evaluate patient for worsening anemia requiring blood transfusion. Patient is currently being cared for in the critical care setting post tracheostomy placement, patient mechanically ventilated. Temperature 101.5 this a.m. sinus tach on residential monitor. Patient presently having loose watery stools, dignity shield applied with noted liquid brown stool present. ICU nurse reports no obvious noted bleeding. Hemoglobin 6.7 hematocrit 23.9. Patient currently receiving 1st of 2 units of packed RBCs for transfusion. Upon exam, estimated 5 x 5 cm hematoma to the left lower quadrant of abdomen. Left upper extremity phlebitis noted. Patient currently receiving Lovenox 60 mg subcutaneously every 12 hours. Anemia-requiring blood transfusion- Microcytic anemia christina chronic 68-year-old female admitted to [facility] for hypoxemia mental status changes. Patient intubated upon arrival. Our service has been consulted for worsening anemia now requiring blood transfusion of 2 units packed RBCs. There have been no obvious signs of bleeding reported. Patient presently trach and ventilated FiO2 35%. PEG tube with Glucerna at 60 mL's per hour. Abdomen soft with bowel sounds present, ~5 x 5 cm hematoma left lower quadrant. Patient currently receiving Lovenox 60 mg subcutaneous every 12 hours. -Hemoglobin 6.7 hematocrit 23.9 WBC 11.7 platelet count 242 -Total bilirubin 0.3 AST 18 ALT 25 alk phos 103 10/02/2018 Patient awake and alert Nonverbal Mechanically ventilated via trach-on no sedation No reported or active bleeding noted-hemoglobin 9.7 hematocrit 30.9 from 10.3 and 32.7 Slight rising BUN with stable creatinine may be indicative of upper GI bleeding possible dilated specimen value 6.7 on 10/01/2018 Dignity shield noted liquid brown stool present KUB: Persistent airspace consolidation involving the right lower lobe. Abdominal bowel gas pattern is normal. Nurse reports no PEG tube feeding residuals 10/03/2018 Patient resting soundly with eyes closed Mechanically ventilated via trach on no sedation No reported bleeding 8.8 hemoglobin 9.5 hematocrit 30.4 No enteric pathogens or WBCs noted on final report for stool studies Plan -Hold tube feedings after midnight 10/04/2018 -Monitor for active bleeding -Plan of care per critical care medicine -Monitor hemoglobin and hematocrit closely -Transfuse as needed -Pantoprazole 40 mg IV every 12 -Palliative following -Stool studies pending-Cryptosporidium and Giardia -Obtain consent for EGD and colonoscopy (planning for 10/04/2018) -GoLYTELY prep (10/03/2018 @ 1600) -Supportive care -Further recommendations to follow 10/05/2018 Patient remains intubated Status post EGD colonoscopy 10/04/2018-findings of chronic gastritis no distinct source of bleeding identified on upper or lower endoscopy Assessment Chronic anemia Acute respiratory failure Hemoglobin 8.7 hematocrit 28 platelet 255 INR 1 CMP is pending Stool studies were all negative for C. difficile, WBCs stool, enteric pathogens PCR, leptospiral odium antigen, and Giardia antigen. 10/07/2018 Nausea vomiting Patient evaluated due to reported nausea and vomiting tube feeding this a.m. ICU nurse reports 40 mL residual gastric content mucoid, scant amount of possible tube feeding around PEG tube site No noted bleeding Abdomen mildly distended with bowel sounds present 10/08/2018 Assessment -patient's PEG tube was leaking overnight per ICU nurse, adjustment was done by the GI team, PEG tube was patent on aspiration with residual. Can resume tube feeding at 30 cc an hour. Monitor for leakage. 10/12/2018 Assessment Respiratory failure -patient is getting better now on CPAP Chronic gastritis Anemia chronic disease PEG tube for long-term use -functional 10/15/2018 Clogged PEG tube GI asked to reconsult due to evaluation needed for clogged PEG tube 10/15/2018 KUB: No dilated loops of small or large bowel. Percutaneous gastrostomy in place. The osseous structures are osteopenic. Heterotopic aspiration of about the superior hip joints bilaterally. Both hemidiaphragms are delineated. Persistent consolidative opacity in the right lower lung. 10/16/2018 Replacement of PEG tube Patient scheduled for Thursday replacement of the PEG Hemoglobin 9.7 hematocrit 30.6 platelet 288 INR 1 10/17/2018 patient remains in the intensive care setting labs reviewed which shows stable hemoglobin at 9.1. No family present, continues with obstructed gastric tube, plans to replace on . No other acute changes noted from a GI perspective Plan Tube feeds at 40 cc an hour today but will n.p.o. at midnight consent for EGD with PEG replacement Hold a.m. Lovenox dose for Thursday Ancef 1gm OC a.m. PPI Monitor labs Supportive care Further recommendations to follow patient has been seen per myself and Dr. Schuster, note is written on his behalf <Kaci Johns - Last Filed: 10/17/18 10:50> (1) Anemia Status: Acute Code(s): D64.9 - Anemia, unspecified (2) Respiratory failure Status: Acute Code(s): J96.90 - Respiratory failure, unspecified, unspecified whether with hypoxia or hypercapnia (3) PEG (percutaneous endoscopic gastrostomy) adjustment/replacement/removal Status: Acute Code(s): Z43.1 - Encounter for attention to gastrostomy (4) Leaking PEG tube Status: Acute Code(s): K94.23 - Gastrostomy malfunction - Plan Seen and examined with MEDICAL REGISTRAR, tolerating NG feedings. EGD/Peg replacement planned for tomorrow. Discussed with family at the bedside. <Helena Schuster - Last Filed: 10/17/18 12:08>
--- NOTE | 2018-10-17 11:04 | P.DIET ---
Nutritional Evaluation Type of nutrition evaluation: follow-up Nutrition consult regarding: Tube Feeding Screening comments: 09/19/18 TF review Objective - Diagnosis Fever, AMS - Objective Part of Body Amputated: Left above knee (12%) [place] body weight: 50 kg (adj IBW 44kg, adjBW: 53.6kg) % IBW: 139 Body Weight Used for Calculations: Actual Energy Needs - Lower Range (kCal/kg): 28 Energy Needs - Upper Range (kCal/kg): 33 Lower Limit kCal/kg (kCals): 1,501 Upper Limit kCal/kg (kCals): 1,769 Lower Limit Protein Factor (Grams per Kg): 1.2 Upper Limit Protein Factor (Grams per Kg): 1.5 Lower Protein Needs (Protein): 64 Upper Protein Needs (Protein): 80 Dietitian Reviewed in Medical Record: Curent medications, Intake & Output, Labs , Medical history, Tube feeding Diet Order: NPO Objective Comments: PMH: stroke, DM, Dysphagia, HTN, Hemiparesis, L AKA, PEG placement Labs include: Phos 2.4 Meds include: novolin, lactulose LBM 10/16/18 Pt's nutritional needs based on AdjBW of 53.6kg r/t L AKA Assessment Assessment: Pt remains at nutritional risk r/t need for a TF for nutrition support. Pt continues to be intubated, off sedation now, on mech vent via trach, receiving CPAP trials daily. PEG tube clogged 10/15 with nursing unable to remove clog. NGT now placed for TF and pt pending PEG replacement 10/18. Please flush PEG tube before and after medications given. Current TF order via NGT is Glucerna 1.5 running at 50ml/hour. Will continue with previous recommendations of Glucerna 1.5 with goal rate of 45ml/hr to provide 1620kcals, 89gms protein and 820mls free water plus Berny 1-pkt BID to promote wound healing. Labs and medications reviewed. Will continue to monitor tolerance to TF, wound healing and clinical course. Brought forward: Noted pt was on hospice with a DNR which removed upon admission. Recommendations: 1. RD continue to recommend TF Glucerna 1.5 @ 45mL/hr 2. RD to recommend Berny 1-pkt BID to promote wound healing 3. Continue to monitor TF tolerance, clinical course 4. Flush PEG tube before and after medication admnistration 5. Dietitian following Dietitian to Monitor: Lab values, Glucose level, Intake & Output, Tube feeding tolerance, Weight change, Wound/skin status, Medical course
[2018-10-17] MEDS: Pantoprazole Inj 40 MG Vial IV.PUSH SCH ×2 (12:30→23:52)
--- NOTE | 2018-10-17 16:45 | P.PNCC ---
Subjective Subjective Remarks/Hospital Course: 09/18: 68-year-old female past medical history of stroke, left BKA, who was on home hospice until just prior to arrival, presents for an evaluation of fever and altered mental status. According to EMS the patient had not required oxygen until beginning of this week when she had gradual increased demand of her oxygen. End-tidal CO2 prior to arrival was 6. Initial room nasal cannula saturation was 91, she was placed on nonrebreather position of comfort and transfer to emergency department. EMS related that the had elected to revoke the patient's DNR and hospice care prior to transferring her to the hospital. The patient apparently is normally a GCS of 14, apparently she does take some thickened food p.o. department the patient was severely altered with GCS of 6 on arrival [id number] and was intubated by ED attending for an airway protection. 09/19: Remains sedated, orally intubated on mechanical ventilation. CT chest showed right lower lobe lung mass suspicious for malignancy. Patient has a PEG tube following previous stroke. 09/20: Remains sedated, orally intubated on mechanical ventilation. Started on tube feeds. 09/21: Remains sedated, orally intubated on mechanical ventilation. Tolerating tube feeds. Right approximately swelling noted. 09/22 Is not tolerating CPAP trial when decrease PS below 18. Daughter at bedside, says will be here later. Says they don't think they want to proceed with lung biopsy at this time, but on the other hand she discusses the possibility of re-do trach. She says they are not sure how to proceed. I suggested we meet together. Daughter states she has been bedridden since stroke about 4 years ago. Has been in jail. PEG due to dysphagia, does not eat. Speaks a little but daughter states she has declined significantly over the last 2 weeks. 09/23 No significant change. Patient does not tolerate CPAP. Family is very clear that they do not wish to pursue biopsy or diagnosis of suspected lung cancer. At this time, they wish to continue supportive care with vent and FULL CODE. 09/24 No change. Does not tolerate CPAP. Will diurese for positive fluid balance. 09/25 Now on CPAP 20/5 and not tolerating wean. Continue attempts at diuresis to address positive fluid balance since admission 09/26: Remains sedated, orally intubated on mechanical ventilation. Hold CPAP trials yesterday 09/27 Patient is sedated with Diprivan and intubated. Tolerating tube feeds. Afebrile. 09/28 Patient remains intubated and sedated. T;100.8 09/29 Has not made any progress towards weaning. Family offered comfort measures however they expressed desire to proceed with trach Subjective: 09/30 status post bedside tracheostomy yesterday by Dr. Gavin. Discontinued propofol drip. On CPAP 14/5 for 2 hours today. BP is low, will need to hold metoprolol and titrate back on cardizem (nurses held some doses yesterday too). Positive fluid balance but not able to diurese today due to low BP. Awaiting bed at [facility]. 10/01 Patient remains on ventilator via trach. On no sedation. Hgb 6.7 this morning and T: 100.4 at midnight. Tachycardic. 10/02 Patient is on ventilator via trach. On no sedation. Spiked fever with T: 101.5. s/p transfusion 2u PRBC yesterday. Mcmillan/thick secretions noted per nursing staff. 10/03 Patient had low grade fever with T:100.4 last night. Tube feeds held for abd distention. KUB yesterday showed normal bowel gas pattern. 10/04 Patient is on ventilator via trach. For panendoscopy today. T:99.8 last night. 10/05 Patient is on ventilator via trach, on no drips. s/p panendoscopy yesterday showed chronic gastritis with no source of bleeding identified on upper or lower endoscopy. Afebrile. 10/06 Patient remains on ventilator via trach. T:99.9 yesterday 10/07: Remains on the vent continues to fail CPAP trials due to tachypnea. No nausea vomiting overnight currently resolved. Chest tube had been restarted. Low-grade fever 100.6 10/08: Continues to fail CPAP trials. However on vent support appears comfortable. Daughter at the bedside updated. No fever today 10/09: No acute changes overnight. The patient continues to fail CPAP. Patient tolerating tube feeds. 10/10: Afebrile .patient tolerating CPAP trials this a.m.. False level was noted to be low replacement underway. Bowel movements x2 last night 10/11: Patient continues to tolerate CPAP trials 3-4 hours/day Glucerna tube feeds increased to 45 cc/an hour as recommended by dietitian. 10/12: Patient tolerating CPAP trials only 3-4 hours a day. Patient nodding head yes and no to questions, appears calm and comfortable. Medical status update provided to daughter at bedside. 10/13: Patient was noted to have cuff leak, trach ties then positioned appropriately, with resolution of cuff leak. Patient tolerating tube feeds. Continues on CPAP trials. 10/14: Afebrile. The patient tolerated CPAP trials for approximately 8 hours yesterday. 10/15: Afebrile. Peg tube clogged , multiple attempts to open ,unsuccessful. GI consulted for recommendations. 10/16: Plan for GI for placement of new PEG tube today. IV fluids initiated normal saline at 50 cc an hour. 10/17: GI and to evaluate patient yesterday afternoon NG was placed transfer for placement of PEG tube on Thursday. Today patient removed NG tube to be replaced by STEWARD/STEWARDESS and tube feeds to be reinstituted. IV fluids continue awaiting replacement of NG tube. Objective Vital Signs / I&O: Vital Signs 10/16/18 16:45 10/16/18 17:00 10/16/18 17:15 Temperature Pulse Rate 89 88 91 H Respiratory Rate 16 16 16 Blood Pressure 150/70 H 150/70 H 154/71 H Pulse Oximetry 100 100 100 10/16/18 17:30 10/16/18 17:45 10/16/18 18:00 Temperature Pulse Rate 87 88 87 Respiratory Rate 16 16 16 Blood Pressure 154/71 H 163/72 H 154/70 H Pulse Oximetry 100 100 100 10/16/18 18:15 10/16/18 18:30 10/16/18 18:45 Temperature Pulse Rate 87 86 100 H Respiratory Rate 16 16 28 H Blood Pressure 147/67 H 148/69 H 166/71 H Pulse Oximetry 100 100 100 10/16/18 19:00 10/16/18 19:15 10/16/18 20:00 Temperature Pulse Rate 101 H 100 H 101 H Respiratory Rate 23 16 18 Blood Pressure 166/72 H 157/63 H 146/66 H Pulse Oximetry 100 100 99 10/16/18 21:03 10/16/18 22:00 10/16/18 23:57 Temperature Pulse Rate 101 H 97 H 109 H Respiratory Rate 20 17 Blood Pressure Pulse Oximetry 100 99 10/17/18 00:00 10/17/18 02:00 10/17/18 04:00 Temperature 99.8 F H 99.7 F H Pulse Rate 112 H 110 H 111 H Respiratory Rate 23 24 Blood Pressure 135/63 139/63 Pulse Oximetry 100 100 10/17/18 04:26 10/17/18 06:00 10/17/18 08:00 Temperature Pulse Rate 109 H 103 H 100 H Respiratory Rate 16 22 Blood Pressure Pulse Oximetry 100 99 10/17/18 10:00 10/17/18 11:35 10/17/18 11:37 Temperature Pulse Rate 100 H 106 H Respiratory Rate 26 H 26 H Blood Pressure Pulse Oximetry 100 10/17/18 12:00 10/17/18 14:00 10/17/18 15:05 Temperature Pulse Rate 110 H 96 H 100 H Respiratory Rate 16 Blood Pressure Pulse Oximetry 10/17/18 15:57 Temperature Pulse Rate Respiratory Rate 16 Blood Pressure Pulse Oximetry 100 Intake & Output 10/16/18 10/17/18 10/17/18 18:59 06:59 18:59 Intake Total 100 / 100 958 / 958 1250 / 1250 Output Total 300 / 300 250 / 250 Balance -200 / -200 708 / 708 1250 / 1250 Weight 55.8 kg Intake: IV 100 / 100 1000 / 1000 NS Inj 1,000 ML @ 50 mls/hr IV. 1000 / 1000 CONT .Q20H [facility] Rx#:[id number] Maxipime Inj 1,000 MG In NS Inj 100 / 100 100 ML @ 200 mls/hr IV.SIG Q8H [facility] Rx#:[id number] Oral 0 / 0 Tube Irrigant 208 / 208 Water Bolus Amount 500 / 500 Free Water Amount 250 / 250 250 / 250 Output: Urine Amount (Catheter) 300 / 300 250 / 250 Indwelling Urethral Catheter 300 / 300 250 / 250 Other: Date of Last Bowel Movement 10/16/18 10/16/18 10/16/18 # Incontinent Bowel Movements 1 Result Diagrams: 10/17/18 05:35 10/17/18 05:35 Objective Remarks: GENERAL: Well-nourished, well-developed patient female appearing older than stated age resting comfortably SKIN: Warm and dry. HEAD: Atraumatic. Normocephalic. EYES: Pupils equal and round. No scleral icterus. No injection or drainage. ENT: No nasal bleeding or discharge. Mucous membranes pink and moist. NECK: Tracheostomy in place, slight pink tinge to secretions, no active bleeding. CARDIOVASCULAR: S1S2 normal, No murmurs rubs or gallops. RESPIRATORY: Tracheostomy 8.0 Shiley in situ, currently on CPAP trials B/L equal air entry GASTROINTESTINAL: Abdomen soft, non-tender,distended. PEG in place, clamped MUSCULOSKELETAL: Extremities without clubbing, cyanosis, or edema. s/p L AKA. NEUROLOGICAL: Awakens easily looks around. Blinks and squeezes hand to command. Nods head to yes and no questions Assessment and Plan - Assessment and Plan Plan: NEURO: History of stroke Off sedation. Monitor neuro status Avoid sedatives RESP: Acute respiratory failure on mechanical ventilation Emphysema Lung mass History of prior trach after stroke, has been subsequently decannulated Per Dr. De Jesus. not wishing to pursue CT-guided biopsy. Continue with vent support Daily CPAP trials. Vent bundle/nebs. Tolerated for 8 hr yesterday Percutaneous tracheostomy performed at bedside 09/29. Pulm toilet, trach care CV: HTN Monitor BP/heart rate keep MAP>65mmHg. On Cardizem 30mg q6 with hold orders. Labetalol as needed GI: Clogged PEG tube PEG in place. On Glucerna 1.5 @ 45ml/hr KUB abdomen 10/02 Normal bowel gas pattern. CT abd/pelvis 10/03: No evidence of bowel obstruction or ileus. GI consultedfor PEG tube malfunction. Land replacement of PEG tube today we will initiate normal saline IV fluids at 50cc/hr And for PEG tube placement tomorrow per GI 10/18 FEN/RENAL: Acute hypernatremia- resolved Monitor renal function, I/O's, electrolytes replacement per protocol. Free water 250ml Q8, ID: HCAP UTI Urine culture from 09/18 with providentia and Proteus. BC 10/01: NGTD sputum cx 09/28 and 10/03 : No growth On abx Cefepime and Vanco, d/c Vanco, monitor for signs of infections ( Fever, WBC) C-diff PCR negative on 10/01 HEME: R brachial DVT Anemia Lovenox 60 mg subcu every 12 hours. s/p Transfuse 2u PRBC 10/01 GI is following ENDO: Diabetes mellitus Insulin sliding scale PROPH: SCD/Lovenox for DVT prophylaxis. Protonix 40mg Q12 for stress ulcer prophylaxis. 10/01 Doppler US UE b/l: Superficial venous thrombosis identified in the right cephalic vein. No evidence of DVT. 09/21 Doppler US RUE: Occlusive thrombus cephalic and brachial veins ACCESS: PIV x2. Full code Level 3 follow-up Planned transfer to LTAC when bed available Code Status: Full Discussed Condition With: STEWARD/STEWARDESS at bedside
[2018-10-18] MEDS: Labetalol HCl Inj 20 MG/4 ML Vial IV.PUSH PRN (01:47)
[2018-10-18] MEDS: dilTIAZem 30 MG Tablet PO SCH ×4 (04:07→21:09)
[2018-10-18] MEDS: Oral Hygiene Kit OROPHARYNG SCH ×4 (04:07→23:59)
[2018-10-18] MEDS: Sod Chloride 0.9% Inj 1,000 ML IV.CONT SCH (04:46)
[2018-10-18] MEDS: Insulin NovoLIN Regular Correctional Sugar Inj SQ SCH ×4 (05:50→23:59)
[2018-10-18] MEDS: Chlorhexidine 0.12% Oral Kit 15 ML UDC OROPHARYNG SCH ×2 (07:42→21:10)
[2018-10-18] MEDS: Senna/Docusate Sodium 8.6/50 MG Tablet PO SCH ×3 (07:43→21:10)
[2018-10-18] MEDS: Enoxaparin Inj 60 MG/0.6 ML Syringe SQ SCH ×3 (07:43→21:09)
[2018-10-18] MEDS ORDERED: ceFAZolin Inj 1 GM in Sodium Chloride 0.9% Inj 100 ML IV.SIG SCH (08:00)
[2018-10-18] MEDS: Sodium Glycerophosphate Inj 30 MMOL in Sodium Chlor 0.9% Inj 250 ML IV.SIG PRN (09:00)
[2018-10-18] MEDS: Pantoprazole Inj 40 MG Vial IV.PUSH SCH (12:39)
[2018-10-18] MEDS ORDERED: Lidocaine PF 1% Inj 5 ML Syringe OTHER ONE (13:10)
--- NOTE | 2018-10-18 14:07 | P.PNCC ---
Subjective Subjective Remarks/Hospital Course: 09/18: 68-year-old female past medical history of stroke, left BKA, who was on home hospice until just prior to arrival, presents for an evaluation of fever and altered mental status. According to EMS the patient had not required oxygen until beginning of this week when she had gradual increased demand of her oxygen. End-tidal CO2 prior to arrival was 6. Initial room nasal cannula saturation was 91, she was placed on nonrebreather position of comfort and transfer to emergency department. EMS related that the had elected to revoke the patient's DNR and hospice care prior to transferring her to the hospital. The patient apparently is normally a GCS of 14, apparently she does take some thickened food p.o. department the patient was severely altered with GCS of 6 on arrival E4V1M1 and was intubated by ED attending for an airway protection. 09/19: Remains sedated, orally intubated on mechanical ventilation. CT chest showed right lower lobe lung mass suspicious for malignancy. Patient has a PEG tube following previous stroke. 09/20: Remains sedated, orally intubated on mechanical ventilation. Started on tube feeds. 09/21: Remains sedated, orally intubated on mechanical ventilation. Tolerating tube feeds. Right approximately swelling noted. 09/22 Is not tolerating CPAP trial when decrease PS below 18. Daughter at bedside, says will be here later. Says they don't think they want to proceed with lung biopsy at this time, but on the other hand she discusses the possibility of re-do trach. She says they are not sure how to proceed. I suggested we meet together. Daughter states she has been bedridden since stroke about 4 years ago. Has been in jail. PEG due to dysphagia, does not eat. Speaks a little but daughter states she has declined significantly over the last 2 weeks. 09/23 No significant change. Patient does not tolerate CPAP. Family is very clear that they do not wish to pursue biopsy or diagnosis of suspected lung cancer. At this time, they wish to continue supportive care with vent and FULL CODE. 09/24 No change. Does not tolerate CPAP. Will diurese for positive fluid balance. 09/25 Now on CPAP 20/5 and not tolerating wean. Continue attempts at diuresis to address positive fluid balance since admission 09/26: Remains sedated, orally intubated on mechanical ventilation. Hold CPAP trials yesterday 09/27 Patient is sedated with Diprivan and intubated. Tolerating tube feeds. Afebrile. 09/28 Patient remains intubated and sedated. T;100.8 09/29 Has not made any progress towards weaning. Family offered comfort measures however they expressed desire to proceed with trach Subjective: 09/30 status post bedside tracheostomy yesterday by Dr. Gavin. Discontinued propofol drip. On CPAP 14/5 for 2 hours today. BP is low, will need to hold metoprolol and titrate back on cardizem (nurses held some doses yesterday too). Positive fluid balance but not able to diurese today due to low BP. Awaiting bed at [facility]. 10/01 Patient remains on ventilator via trach. On no sedation. Hgb 6.7 this morning and T: 100.4 at midnight. Tachycardic. 10/02 Patient is on ventilator via trach. On no sedation. Spiked fever with T: 101.5. s/p transfusion 2u PRBC yesterday. Mcmillan/thick secretions noted per nursing staff. 10/03 Patient had low grade fever with T:100.4 last night. Tube feeds held for abd distention. KUB yesterday showed normal bowel gas pattern. 10/04 Patient is on ventilator via trach. For panendoscopy today. T:99.8 last night. 10/05 Patient is on ventilator via trach, on no drips. s/p panendoscopy yesterday showed chronic gastritis with no source of bleeding identified on upper or lower endoscopy. Afebrile. 10/06 Patient remains on ventilator via trach. T:99.9 yesterday 10/07: Remains on the vent continues to fail CPAP trials due to tachypnea. No nausea vomiting overnight currently resolved. Chest tube had been restarted. Low-grade fever 100.6 10/08: Continues to fail CPAP trials. However on vent support appears comfortable. Daughter at the bedside updated. No fever today 10/09: No acute changes overnight. The patient continues to fail CPAP. Patient tolerating tube feeds. 10/10: Afebrile .patient tolerating CPAP trials this a.m.. False level was noted to be low replacement underway. Bowel movements x2 last night 10/11: Patient continues to tolerate CPAP trials 3-4 hours/day Glucerna tube feeds increased to 45 cc/an hour as recommended by dietitian. 10/12: Patient tolerating CPAP trials only 3-4 hours a day. Patient nodding head yes and no to questions, appears calm and comfortable. Medical status update provided to daughter at bedside. 10/13: Patient was noted to have cuff leak, trach ties then positioned appropriately, with resolution of cuff leak. Patient tolerating tube feeds. Continues on CPAP trials. 10/14: Afebrile. The patient tolerated CPAP trials for approximately 8 hours yesterday. 10/15: Afebrile. Peg tube clogged , multiple attempts to open ,unsuccessful. GI consulted for recommendations. 10/16: Plan for GI for placement of new PEG tube today. IV fluids initiated normal saline at 50 cc an hour. 10/17: GI and to evaluate patient yesterday afternoon NG was placed transfer for placement of PEG tube on Thursday. Today patient removed NG tube to be replaced by SUPERVISOR STONE and tube feeds to be reinstituted. IV fluids continue awaiting replacement of NG tube. 10/18: No acute changes overnight. The patient underwent PEG tube replacement this afternoon. Tube feeds to be reinitiated. Patient continues to respond by nodding head yes and no to questions. Denies pain. Patient tolerating CPAP trials approximately 3-4 hours a day. Objective Vital Signs / I&O: Vital Signs 10/17/18 14:15 10/17/18 14:30 10/17/18 14:45 Temperature Pulse Rate 95 H 99 H 101 H Respiratory Rate 23 38 H 24 Blood Pressure 150/68 H 161/72 H 147/67 H Pulse Oximetry 100 100 100 10/17/18 15:00 10/17/18 15:05 10/17/18 15:15 Temperature Pulse Rate 99 H 100 H 102 H Respiratory Rate 35 H 16 19 Blood Pressure 152/70 H 146/66 H Pulse Oximetry 100 100 10/17/18 15:30 10/17/18 15:45 10/17/18 15:57 Temperature Pulse Rate 93 H 95 H Respiratory Rate 16 16 16 Blood Pressure 146/65 H 139/63 Pulse Oximetry 100 100 100 10/17/18 16:00 10/17/18 16:15 10/17/18 16:30 Temperature Pulse Rate 102 H 95 H 93 H Respiratory Rate 16 16 16 Blood Pressure 140/65 129/57 L 139/63 Pulse Oximetry 100 100 100 10/17/18 16:45 10/17/18 17:00 10/17/18 17:15 Temperature Pulse Rate 92 H 103 H 98 H Respiratory Rate 16 16 16 Blood Pressure 135/62 133/61 143/66 H Pulse Oximetry 100 100 100 10/17/18 17:30 10/17/18 17:45 10/17/18 18:00 Temperature 99.3 F Pulse Rate 96 H 101 H 101 H Respiratory Rate 16 16 16 Blood Pressure 145/70 H 161/73 H 149/70 H Pulse Oximetry 100 100 100 10/17/18 18:15 10/17/18 18:30 10/17/18 18:45 Temperature Pulse Rate 105 H 102 H 102 H Respiratory Rate 19 16 16 Blood Pressure 144/65 H 146/65 H 134/60 Pulse Oximetry 100 100 100 10/17/18 19:00 10/17/18 20:00 10/17/18 20:08 Temperature 99.1 F Pulse Rate 106 H 105 H 102 H Respiratory Rate 19 16 16 Blood Pressure 141/65 H Pulse Oximetry 100 100 100 10/17/18 22:00 10/17/18 23:40 10/18/18 00:00 Temperature 99.7 F H Pulse Rate 113 H 110 H 117 H Respiratory Rate 18 21 Blood Pressure 138/67 Pulse Oximetry 100 10/18/18 01:12 10/18/18 02:00 10/18/18 04:00 Temperature 99.6 F Pulse Rate 101 H 101 H Respiratory Rate 28 H 19 Blood Pressure 152/59 H Pulse Oximetry 100 100 10/18/18 04:12 10/18/18 05:56 10/18/18 08:00 Temperature Pulse Rate 108 H 105 H Respiratory Rate 25 H Blood Pressure Pulse Oximetry 100 100 10/18/18 08:06 10/18/18 08:11 10/18/18 11:45 Temperature Pulse Rate 102 H 99 H Respiratory Rate 16 16 19 Blood Pressure Pulse Oximetry 100 100 Intake & Output 10/17/18 10/18/18 10/18/18 18:59 06:59 18:59 Intake Total 1500 / 1500 1740 / 1740 Output Total 400 / 400 450 / 450 Balance 1100 / 1100 1290 / 1290 Weight 57.2 kg Intake: IV 1000 / 1000 1000 / 1000 NS Inj 1,000 ML @ 50 mls/hr IV. 1000 / 1000 1000 / 1000 CONT .Q20H [facility] Rx#:[id number] Tube Feeding 390 / 390 Water Bolus Amount 250 / 250 Free Water Amount 500 / 500 100 / 100 Output: Urine Amount (Catheter) 400 / 400 450 / 450 Indwelling Urethral Catheter 400 / 400 450 / 450 Other: Date of Last Bowel Movement 10/16/18 10/18/18 10/18/18 # Incontinent Bowel Movements 1 Result Diagrams: 10/17/18 05:35 10/17/18 05:35 Objective Remarks: GENERAL: Well-nourished, well-developed patient female appearing older than stated age resting comfortably SKIN: Warm and dry. HEAD: Atraumatic. Normocephalic. EYES: Pupils equal and round. No scleral icterus. No injection or drainage. ENT: No nasal bleeding or discharge. Mucous membranes pink and moist. NECK: Tracheostomy in place, slight pink tinge to secretions, no active bleeding. CARDIOVASCULAR: S1S2 normal, No murmurs rubs or gallops. RESPIRATORY: Tracheostomy 8.0 Shiley in situ, currently on CPAP trials B/L equal air entry GASTROINTESTINAL: Abdomen soft, non-tender,distended. PEG tube in place no drainage. MUSCULOSKELETAL: Extremities without clubbing, cyanosis, or edema. s/p L AKA. NEUROLOGICAL: Awakens easily looks around. Blinks and squeezes hand to command. Nods head to yes and no questions Assessment and Plan - Assessment and Plan Plan: NEURO: History of stroke Off sedation. Monitor neuro status Avoid sedatives RESP: Acute respiratory failure on mechanical ventilation Emphysema Lung mass History of prior trach after stroke, has been subsequently decannulated Per Dr. De Jesus. not wishing to pursue CT-guided biopsy. Continue with vent support Daily CPAP trials. Vent bundle/nebs. Tolerated for 4 hours Percutaneous tracheostomy performed at bedside 09/29. Pulm toilet, trach care CV: HTN Monitor BP/heart rate keep MAP>65mmHg. On Cardizem 30mg q6 with hold orders. Labetalol as needed GI: Clogged PEG tube PEG in place. On Glucerna 1.5 @ 45ml/hr KUB abdomen 2/ Normal bowel gas pattern. CT abd/pelvis 10/03: No evidence of bowel obstruction or ileus. GI consultedfor PEG tube malfunction. Fluids PEG tube replacement per GI 10/18 FEN/RENAL: Acute hypernatremia- resolved Monitor renal function, I/O's, electrolytes replacement per protocol. Free water 250ml Q8, ID: HCAP UTI Urine culture from 09/18 with providentia and Proteus. BC 10/01: NGTD sputum cx 09/28 and 10/03 : No growth On abx Cefepime and Vanco, d/c Vanco, monitor for signs of infections ( Fever, WBC) C-diff PCR negative on 10/01 HEME: R brachial DVT Anemia Lovenox 60 mg subcu every 12 hours. s/p Transfuse 2u PRBC 10/01 GI is following Repeat ultrasound bilateral upper extremities ENDO: Diabetes mellitus Insulin sliding scale PROPH: SCD/Lovenox for DVT prophylaxis. Protonix 40mg Q12 for stress ulcer prophylaxis. 10/01 Doppler US UE b/l: Superficial venous thrombosis identified in the right cephalic vein. No evidence of DVT. 09/21 Doppler US RUE: Occlusive thrombus cephalic and brachial veins ACCESS: PIV x2. Full code Level 3 follow-up Planned transfer to LTAC when bed available Code Status: Full Discussed Condition With: Dr. Perez, and SUPERVISOR STONE at bedside
--- NOTE | 2018-10-18 14:21 | GIPROC ---
[facility] [address] [facility]. [facility], [id number] EGD PROCEDURE REPORT EXAM DATE: 10/18/2018 PATIENT NAME: Leigh Marrufo MR #: [id number] BIRTHDATE: 1950 ATTENDING: Marvin Perez MD ORDER #: [id number] MERCHANDISING STOCK ASSOCIATE: Carolyn Baker STATUS: inpatient INDICATIONS: The patient is a 68 yr old female here for an EGD due to Dysfunctional G tube PROCEDURE PERFORMED: EGD w/ percutaneous gastrostomy tube placement MEDICATIONS: Per Anesthesia and None. TOPICAL ANESTHETIC: none CONSENT: The patient understands the risks and benefits of the procedure and understands that these risks include, but are not limited to: sedation, allergic reaction, infection, perforation and/or bleeding. Alternative means of evaluation and treatment include, among others: physical exam, x-rays, and/or surgical intervention. The patient elects to proceed with this endoscopic procedure. medical equipment was checked for proper function. Hand hygiene and appropriate measures for infection prevention was taken. After the risks, benefits and alternatives of the procedure were thoroughly explained, Informed consent was verified, confirmed and timeout was successfully executed by the treatment team. The patient was anesthetized with topical anesthesia and the Pentax EG-[id number] endoscope was introduced through the mouth and advanced to the second portion of the duodenum. Retroflexion was not performed The gastroscope was then slowly withdrawn and removed. ESOPHAGUS: The mucosa of the esophagus appeared normal. STOMACH: The mucosa of the stomach appeared normal. Old dysfunctional G Tube removed by deflating balloon. New 16F GTube placed in through gastrostomy site. DUODENUM: The duodenal mucosa appeared normal in the entire duodenum. ADVERSE EVENTS: There were no complications. IMPRESSIONS: 1. The esophagus appeared normal 2. The mucosa of the stomach appeared normal 3. Normal duodenal mucosa in the entire duodenum 4. Retroflexion was not performed 5. New G Tube placement RECOMMENDATIONS: Start tube feeding today PATIENT CONDITION: stable DISPOSITION: Inpatient REPEAT EXAM: Return as needed for EGD Marvin Perez MD eSigned: Marvin Perez MD 10/18/2018 2:21 PM cc: PATIENT NAME: Leigh Marrufo MR#: [id number]
--- NOTE | 2018-10-18 20:08 | P.PNPL ---
Subjective Interval history: 68 YOAA female who was with Hospice svc, now rescended back on Vent off sedation Tolerates TF Had PEG tube replaced Physical Exam Vital signs: Vital Signs 10/17/18 20:08 10/17/18 22:00 10/17/18 23:40 Temperature Pulse Rate 102 H 113 H 110 H Respiratory Rate 16 18 Blood Pressure Pulse Oximetry 100 10/18/18 00:00 10/18/18 01:12 10/18/18 02:00 Temperature 99.7 F H Pulse Rate 117 H 101 H Respiratory Rate 21 28 H Blood Pressure 138/67 Pulse Oximetry 100 100 10/18/18 04:00 10/18/18 04:12 10/18/18 05:56 Temperature 99.6 F Pulse Rate 101 H 108 H 105 H Respiratory Rate 19 25 H Blood Pressure 152/59 H Pulse Oximetry 100 100 10/18/18 08:00 10/18/18 08:06 10/18/18 08:11 Temperature 99.6 F Pulse Rate 101 H 102 H Respiratory Rate 33 H 16 16 Blood Pressure 128/55 L Pulse Oximetry 100 100 10/18/18 08:15 10/18/18 08:30 10/18/18 08:45 Temperature Pulse Rate 102 H 101 H 101 H Respiratory Rate 16 16 16 Blood Pressure 126/58 L 121/56 L 118/58 L Pulse Oximetry 100 100 100 10/18/18 09:00 10/18/18 09:15 10/18/18 09:30 Temperature Pulse Rate 100 H 107 H 106 H Respiratory Rate 16 18 17 Blood Pressure 120/59 L 136/63 130/64 Pulse Oximetry 100 100 100 10/18/18 09:45 10/18/18 10:00 10/18/18 10:15 Temperature Pulse Rate 101 H 98 H 97 H Respiratory Rate 18 16 16 Blood Pressure 132/60 130/62 126/60 Pulse Oximetry 100 100 100 10/18/18 10:30 10/18/18 10:45 10/18/18 11:00 Temperature Pulse Rate 106 H 101 H 109 H Respiratory Rate 34 H 35 H 35 H Blood Pressure 124/59 L 135/60 155/75 H Pulse Oximetry 100 100 100 10/18/18 11:15 10/18/18 11:30 10/18/18 11:45 Temperature Pulse Rate 98 H 95 H 100 H Respiratory Rate 16 16 37 H Blood Pressure 119/59 L 115/53 L 150/65 H Pulse Oximetry 100 100 100 10/18/18 12:00 10/18/18 12:15 10/18/18 12:37 Temperature 99.3 F Pulse Rate 107 H 113 H 110 H Respiratory Rate 33 H 35 H 23 Blood Pressure 154/67 H 148/66 H 150/68 H Pulse Oximetry 100 100 100 10/18/18 12:40 10/18/18 12:45 10/18/18 12:50 Temperature Pulse Rate 113 H 109 H 108 H Respiratory Rate 40 H 26 H 16 Blood Pressure 159/72 H 164/72 H 144/65 H Pulse Oximetry 100 100 100 10/18/18 12:55 10/18/18 13:00 10/18/18 13:05 Temperature Pulse Rate 102 H 100 H 100 H Respiratory Rate 16 16 16 Blood Pressure 132/62 130/54 L 118/56 L Pulse Oximetry 100 100 100 10/18/18 13:10 10/18/18 13:15 10/18/18 13:20 Temperature Pulse Rate 108 H 104 H 104 H Respiratory Rate 20 16 18 Blood Pressure 147/68 H 141/61 H 139/64 Pulse Oximetry 100 100 100 10/18/18 13:25 10/18/18 13:30 10/18/18 13:33 Temperature Pulse Rate 102 H 96 H 96 H Respiratory Rate 22 20 16 Blood Pressure 148/72 H 141/58 H 120/56 L Pulse Oximetry 100 100 100 10/18/18 13:45 10/18/18 14:00 10/18/18 15:00 Temperature Pulse Rate 96 H 92 H 86 Respiratory Rate 16 16 16 Blood Pressure 112/56 L 110/53 L 138/62 Pulse Oximetry 100 100 100 10/18/18 15:15 10/18/18 15:30 10/18/18 15:45 Temperature Pulse Rate 101 H 102 H 100 H Respiratory Rate 31 H 40 H 30 H Blood Pressure 128/59 L 163/69 H 145/66 H Pulse Oximetry 100 100 100 10/18/18 16:00 10/18/18 16:13 10/18/18 18:00 Temperature 98.9 F Pulse Rate 90 86 112 H Respiratory Rate 16 16 Blood Pressure 144/68 H Pulse Oximetry 100 100 Intake & Output 10/18/18 10/18/18 10/19/18 06:59 18:59 06:59 Intake Total 1740 / 1740 550 / 550 Output Total 450 / 450 525 / 525 Balance 1290 / 1290 25 / 25 Weight 57.2 kg Intake: IV 1000 / 1000 NS Inj 1,000 ML @ 50 mls/hr IV. 1000 / 1000 CONT .Q20H JORGE Rx#:[id number] Tube Feeding 390 / 390 Water Bolus Amount 250 / 250 250 / 250 Free Water Amount 100 / 100 250 / 250 Anesthesia Amount 50 / 50 Output: Urine Amount (Catheter) 450 / 450 525 / 525 Indwelling Urethral Catheter 450 / 450 525 / 525 Other: Date of Last Bowel Movement 10/18/18 10/18/18 # Incontinent Bowel Movements 1 2 GENERAL: Elderly Female, on vent, awake. SKIN: Warm and dry. HEAD: Normocephalic. EYES: No scleral icterus. No injection or drainage. NECK: Supple, trachea midline. No JVD or lymphadenopathy. trach site clean. CARDIOVASCULAR: Regular rate and rhythm without murmurs, gallops, or rubs. RESPIRATORY: Breath sounds equal bilaterally. No accessory muscle use. GASTROINTESTINAL: Abdomen soft, non-tender, nondistended. has PEG MUSCULOSKELETAL: No cyanosis, or edema. BACK: Nontender without obvious deformity. No CVA tenderness. - Urinary Catheter Management Indwelling Temp Sensing Catheter Cath placed during this visit: yes, but has since been removed by the nurse Reason for continuing: Severe pressure ulcer/wound Insertion date: 09/18/18 Insertion time: 18:50 Removal date: 09/23/18 Removal time: 16:00 Female External Cath placed during this visit: no Reason for continuing: Severe pressure ulcer/wound Straight Cath placed during this visit: no Indwelling Urethral Catheter Cath placed during this visit: yes Reason for continuing: Severe pressure ulcer/wound Insertion date: 10/07/18 Insertion time: 10:00 Assessment and Plan - Plan IMPRESSION: VDRF large Rt lung mass COPD HTN H/O CVA PLAN: Cont Vent PRVC AC 16, Fi02 35% CPAP trial daily Aerosol nebs Cont Abx Trach care. EMMA RN at .
[2018-10-19] MEDS: Pantoprazole Inj 40 MG Vial IV.PUSH SCH ×2 (00:02→11:35)
[2018-10-19] MEDS: Sod Chloride 0.9% Inj 1,000 ML IV.CONT SCH (00:02)
[2018-10-19] MEDS: Oral Hygiene Kit OROPHARYNG SCH ×3 (04:50→17:25)
[2018-10-19] MEDS: dilTIAZem 30 MG Tablet PO SCH ×4 (04:50→22:26)
[2018-10-19] MEDS: Insulin NovoLIN Regular Correctional Sugar Inj SQ SCH ×3 (06:48→17:27)
[2018-10-19 07:37] LABS: Baso # (Auto) 0.1 th/mm3 (0.0-0.2); Baso % (Auto) 0.9 % (0.0-2.0); Eos # (Auto) 0.2 th/mm3 (0.0-0.4); Eos % (Auto) 2.8 % (0.0-4.0); Hematocrit 26.2 % (35.0-46.0); Hemoglobin 8.4 gm/dL (11.6-15.3); Lymph # (Auto) 1.3 th/mm3 (1.0-4.8); Lymph % (Auto) 22.1 % (9.0-44.0); Mean Corpuscular HGB Conc 31.9 % (32.0-36.0); Mean Corpuscular Hemoglobin 24.7 pg (27.0-34.0); Mean Corpuscular Volume 77.4 fL (80.0-100.0); Mean Platelet Volume 8.6 fL (7.0-11.0); Mono # (Auto) 0.9 th/mm3 (0.0-0.9); Mono % (Auto) 15.3 % (0.0-8.0); Neut # (Auto) 3.6 th/mm3 (1.8-7.7); Neut % (Auto) 58.9 % (16.0-70.0); Platelet Count 309 th/mm3 (150-450); Red Blood Count 3.39 mil/mm3 (4.00-5.30); Red Cell Distribution Width 20.5 % (11.6-17.2); White Blood Count 6.1 th/mm3 (4.0-11.0)
[2018-10-19 08:16] LABS: Anion Gap 11 meq/L (5-15); Blood Urea Nitrogen 4 mg/dL (7-18); Calcium 8.1 mg/dL (8.5-10.1); Carbon Dioxide 24.2 meq/L (21.0-32.0); Chloride 108 meq/L (98-107); Glomerular Filtration Rate Greater Than 89 mL/min (>89); Glucose,Random 81 mg/dL (74-106); Magnesium 1.8 mg/dL (1.5-2.5); Phosphorus 2.5 mg/dL (2.5-4.9); Potassium 3.4 meq/L (3.5-5.1); Sodium 143 meq/L (136-145)
[2018-10-19] MEDS: Senna/Docusate Sodium 8.6/50 MG Tablet PO SCH ×3 (10:56→22:27)
[2018-10-19] MEDS: Enoxaparin Inj 60 MG/0.6 ML Syringe SQ SCH ×2 (11:34→22:26)
[2018-10-19] MEDS: Chlorhexidine 0.12% Oral Kit 15 ML UDC OROPHARYNG SCH ×2 (11:35→22:26)
--- NOTE | 2018-10-19 11:57 | P.PNGI ---
Subjective Interval history: on Ventilator via tracheostomy Daughter at bedside Physical Exam Vital signs: Vital Signs 10/18/18 11:45 10/18/18 12:00 10/18/18 12:15 Temperature 99.3 F Pulse Rate 100 H 107 H 113 H Respiratory Rate 37 H 33 H 35 H Blood Pressure 150/65 H 154/67 H 148/66 H Pulse Oximetry 100 100 100 10/18/18 12:37 10/18/18 12:40 10/18/18 12:45 Temperature Pulse Rate 110 H 113 H 109 H Respiratory Rate 23 40 H 26 H Blood Pressure 150/68 H 159/72 H 164/72 H Pulse Oximetry 100 100 100 10/18/18 12:50 10/18/18 12:55 10/18/18 13:00 Temperature Pulse Rate 108 H 102 H 100 H Respiratory Rate 16 16 16 Blood Pressure 144/65 H 132/62 130/54 L Pulse Oximetry 100 100 100 10/18/18 13:05 10/18/18 13:10 10/18/18 13:15 Temperature Pulse Rate 100 H 108 H 104 H Respiratory Rate 16 20 16 Blood Pressure 118/56 L 147/68 H 141/61 H Pulse Oximetry 100 100 100 10/18/18 13:20 10/18/18 13:25 10/18/18 13:30 Temperature Pulse Rate 104 H 102 H 96 H Respiratory Rate 18 22 20 Blood Pressure 139/64 148/72 H 141/58 H Pulse Oximetry 100 100 100 10/18/18 13:33 10/18/18 13:45 10/18/18 14:00 Temperature Pulse Rate 96 H 96 H 92 H Respiratory Rate 16 16 16 Blood Pressure 120/56 L 112/56 L 110/53 L Pulse Oximetry 100 100 100 10/18/18 15:00 10/18/18 15:15 10/18/18 15:30 Temperature Pulse Rate 86 101 H 102 H Respiratory Rate 16 31 H 40 H Blood Pressure 138/62 128/59 L 163/69 H Pulse Oximetry 100 100 100 10/18/18 15:45 10/18/18 16:00 10/18/18 16:13 Temperature 98.9 F Pulse Rate 100 H 90 86 Respiratory Rate 30 H 16 16 Blood Pressure 145/66 H 144/68 H Pulse Oximetry 100 100 100 10/18/18 16:15 10/18/18 16:30 10/18/18 16:45 Temperature Pulse Rate 85 87 92 H Respiratory Rate 16 16 16 Blood Pressure 143/65 H 133/57 L 133/61 Pulse Oximetry 100 100 100 10/18/18 17:00 10/18/18 17:15 10/18/18 17:30 Temperature Pulse Rate 93 H 95 H 110 H Respiratory Rate 17 16 20 Blood Pressure 130/56 L 137/62 154/75 H Pulse Oximetry 100 100 100 10/18/18 17:45 10/18/18 18:00 10/18/18 18:15 Temperature Pulse Rate 99 H 112 H 118 H Respiratory Rate 16 19 24 Blood Pressure 151/59 H 129/62 137/77 Pulse Oximetry 100 100 100 10/18/18 18:30 10/18/18 18:45 10/18/18 19:00 Temperature Pulse Rate 113 H 112 H 109 H Respiratory Rate 19 19 18 Blood Pressure 147/67 H 139/63 143/64 H Pulse Oximetry 100 99 99 10/18/18 19:15 10/18/18 19:30 10/18/18 19:45 Temperature Pulse Rate 109 H 107 H 106 H Respiratory Rate 17 17 17 Blood Pressure 134/56 L 142/65 H 144/59 H Pulse Oximetry 100 100 98 10/18/18 20:00 10/18/18 20:14 10/18/18 20:15 Temperature 100.1 F H Pulse Rate 108 H 106 H 106 H Respiratory Rate 19 20 29 H Blood Pressure 149/68 H 152/71 H Pulse Oximetry 99 100 100 10/18/18 20:30 10/18/18 20:45 10/18/18 21:00 Temperature Pulse Rate 105 H 110 H 118 H Respiratory Rate 31 H 28 H 33 H Blood Pressure 138/58 L 132/59 L 158/70 H Pulse Oximetry 99 99 99 10/18/18 21:15 10/18/18 21:30 10/18/18 21:45 Temperature Pulse Rate 112 H 112 H 109 H Respiratory Rate 18 18 17 Blood Pressure 138/57 L 130/62 127/60 Pulse Oximetry 98 99 99 10/18/18 22:00 10/18/18 22:02 10/18/18 22:15 Temperature Pulse Rate 110 H 106 H 111 H Respiratory Rate 20 17 33 H Blood Pressure 124/57 L 113/59 L Pulse Oximetry 99 99 99 10/18/18 22:30 10/18/18 23:00 10/18/18 23:35 Temperature Pulse Rate 109 H 110 H 113 H Respiratory Rate 24 31 H 19 Blood Pressure 118/59 L 107/70 Pulse Oximetry 99 100 10/19/18 00:00 10/19/18 01:00 10/19/18 01:20 Temperature Pulse Rate 107 H 94 H Respiratory Rate 17 16 16 Blood Pressure 121/60 128/60 Pulse Oximetry 100 92 L 95 10/19/18 02:00 10/19/18 03:00 10/19/18 03:11 Temperature Pulse Rate 108 H 107 H 95 H Respiratory Rate 18 17 16 Blood Pressure 143/68 H 114/69 Pulse Oximetry 100 100 10/19/18 04:00 10/19/18 04:01 10/19/18 04:11 Temperature Pulse Rate 100 H 109 H Respiratory Rate 19 19 16 Blood Pressure 132/99 H Pulse Oximetry 99 99 100 10/19/18 05:00 10/19/18 06:00 10/19/18 07:00 Temperature Pulse Rate 107 H 101 H 110 H Respiratory Rate 18 18 22 Blood Pressure 148/67 H 135/61 Pulse Oximetry 100 98 10/19/18 08:00 10/19/18 11:19 10/19/18 11:20 Temperature Pulse Rate 83 Respiratory Rate 19 6 L 6 L Blood Pressure Pulse Oximetry 100 100 Intake & Output 10/18/18 10/19/18 10/19/18 18:59 06:59 18:59 Intake Total 830 / 830 1877 / 1877 250 / 250 Output Total 525 / 525 425 / 425 Balance 305 / 305 1452 / 1452 250 / 250 Weight 57.7 kg Intake: IV 280 / 280 1285 / 1285 NS Inj 1,000 ML @ 50 mls/hr IV. 1285 / 1285 CONT .Q20H JOREG Rx#:[id number] Glycophos Inj 30 MMOL In NS Inj 280 / 280 250 ML @ 42 mls/hr IV.SIG UNSCH PRN Rx#:[id number] Tube Feeding Water Bolus Amount 250 / 250 250 / 250 Free Water Amount 250 / 250 250 / 250 250 / 250 Anesthesia Amount 50 / 50 Output: Urine Amount (Catheter) 525 / 525 425 / 425 Indwelling Urethral Catheter 525 / 525 425 / 425 Other: Date of Last Bowel Movement 10/18/18 10/19/18 # Incontinent Bowel Movements 2 3 Narrative: Patient is intubated via trach - Routine HEENT Exam Head: Present: normocephalic, atraumatic - Routine Neck Exam Present: supple, trachea midline - Routine Respiratory Exam Present: patient mechanically ventilated - Routine Cardiovascular Exam Present: RRR, S1, S2 - Routine Abdominal Exam Present: soft, normoactive bowel sounds. Absent: tenderness, distended Comments: PEG in place and functional with tube feeding ongoing Site is intact no drainage or leakage Nontender non-erythematous site - Routine Extremities Exam Present: pulses intact Comments: Left AKA - Routine Skin Exam Present: intact - Urinary Catheter Management Indwelling Temp Sensing Catheter Cath placed during this visit: yes, but has since been removed by the nurse Reason for continuing: Severe pressure ulcer/wound Insertion date: 09/18/18 Insertion time: 18:50 Removal date: 09/23/18 Removal time: 16:00 Female External Cath placed during this visit: no Reason for continuing: Severe pressure ulcer/wound Straight Cath placed during this visit: no Indwelling Urethral Catheter Cath placed during this visit: yes Reason for continuing: Severe pressure ulcer/wound Insertion date: 10/07/18 Insertion time: 10:00 Results - Labs CBC & Chem 7: 10/19/18 07:10 10/19/18 07:10 Laboratory Results - last 24 hr 10/18/18 10/18/18 10/18/18 12:03 17:56 23:52 WBC RBC Hgb Hct MCV MCH MCHC RDW Plt Count MPV Neut % (Auto) Lymph % (Auto) [place] % (Auto) Eos % (Auto) Baso % (Auto) Neut # (Auto) Lymph # (Auto) [place] # (Auto) Eos # (Auto) Baso # (Auto) WBC Differential Differential Comment Sodium Potassium Chloride Carbon Dioxide Anion Gap BUN Creatinine Estimated GFR POC Glucose 96 90 77 Random Glucose Calcium Phosphorus Magnesium 10/19/18 10/19/18 10/19/18 06:25 07:10 07:10 WBC 6.1 RBC 3.39 L Hgb 8.4 L Hct 26.2 L MCV 77.4 L MCH 24.7 L MCHC 31.9 L RDW 20.5 H Plt Count 309 MPV 8.6 Neut % (Auto) 58.9 Lymph % (Auto) 22.1 [place] % (Auto) 15.3 H Eos % (Auto) 2.8 Baso % (Auto) 0.9 Neut # (Auto) 3.6 Lymph # (Auto) 1.3 [place] # (Auto) 0.9 Eos # (Auto) 0.2 Baso # (Auto) 0.1 WBC Differential . Differential Comment Auto diff final Sodium 143 Potassium 3.4 L Chloride 108 H Carbon Dioxide 24.2 Anion Gap 11 BUN 4 L Creatinine 0.49 L Estimated GFR Greater than 89 POC Glucose 93 Random Glucose 81 Calcium 8.1 L Phosphorus 2.5 Magnesium 1.8 10/19/18 11:34 WBC RBC Hgb Hct MCV MCH MCHC RDW Plt Count MPV Neut % (Auto) Lymph % (Auto) [place] % (Auto) Eos % (Auto) Baso % (Auto) Neut # (Auto) Lymph # (Auto) [place] # (Auto) Eos # (Auto) Baso # (Auto) WBC Differential Differential Comment Sodium Potassium Chloride Carbon Dioxide Anion Gap BUN Creatinine Estimated GFR POC Glucose 93 Random Glucose Calcium Phosphorus Magnesium Assessment and Plan (1) Anemia Status: Acute Code(s): D64.9 - Anemia, unspecified (2) Respiratory failure Status: Acute Code(s): J96.90 - Respiratory failure, unspecified, unspecified whether with hypoxia or hypercapnia (3) PEG (percutaneous endoscopic gastrostomy) adjustment/replacement/removal Status: Acute Code(s): Z43.1 - Encounter for attention to gastrostomy (4) Leaking PEG tube Status: Acute Code(s): K94.23 - Gastrostomy malfunction - Plan This patient is a 68-year-old female with past medical history significant for CVA, left AKA, acute respiratory failure, diabetes, dysphagia, hypertension, hemiparesis, hemiplegia and hypoxia. Surgical history significant for PEG tube placement, tracheostomy and left above-knee amputation. Patient presented to [facility] emergency room via EMS for reported hypoxemia. Of note, patient was on home hospice prior to arrival. Upon arrival, patient was intubated by ER attending for protection of airway. Our service has been consulted to evaluate patient for worsening anemia requiring blood transfusion. Patient is currently being cared for in the critical care setting post tracheostomy placement, patient mechanically ventilated. Temperature 101.5 this a.m. sinus tach on cafeteria monitor. Patient presently having loose watery stools, dignity shield applied with noted liquid brown stool present. ICU nurse reports no obvious noted bleeding. Hemoglobin 6.7 hematocrit 23.9. Patient currently receiving 1st of 2 units of packed RBCs for transfusion. Upon exam, estimated 5 x 5 cm hematoma to the left lower quadrant of abdomen. Left upper extremity phlebitis noted. Patient currently receiving Lovenox 60 mg subcutaneously every 12 hours. Anemia-requiring blood transfusion- Microcytic anemia olivialey chronic 68-year-old female admitted to [facility] for hypoxemia mental status changes. Patient intubated upon arrival. Our service has been consulted for worsening anemia now requiring blood transfusion of 2 units packed RBCs. There have been no obvious signs of bleeding reported. Patient presently trach and ventilated FiO2 35%. PEG tube with Glucerna at 60 mL's per hour. Abdomen soft with bowel sounds present, ~5 x 5 cm hematoma left lower quadrant. Patient currently receiving Lovenox 60 mg subcutaneous every 12 hours. -Hemoglobin 6.7 hematocrit 23.9 WBC 11.7 platelet count 242 -Total bilirubin 0.3 AST 18 ALT 25 alk phos 103 10/02/2018 Patient awake and alert Nonverbal Mechanically ventilated via trach-on no sedation No reported or active bleeding noted-hemoglobin 9.7 hematocrit 30.9 from 10.3 and 32.7 Slight rising BUN with stable creatinine may be indicative of upper GI bleeding possible dilated specimen value 6.7 on 10/01/2018 Dignity shield noted liquid brown stool present KUB: Persistent airspace consolidation involving the right lower lobe. Abdominal bowel gas pattern is normal. Nurse reports no PEG tube feeding residuals 10/03/2018 Patient resting soundly with eyes closed Mechanically ventilated via trach on no sedation No reported bleeding 8.8 hemoglobin 9.5 hematocrit 30.4 No enteric pathogens or WBCs noted on final report for stool studies Plan -Hold tube feedings after midnight 10/04/2018 -Monitor for active bleeding -Plan of care per critical care medicine -Monitor hemoglobin and hematocrit closely -Transfuse as needed -Pantoprazole 40 mg IV every 12 -Palliative following -Stool studies pending-Cryptosporidium and Giardia -Obtain consent for EGD and colonoscopy (planning for 10/04/2018) -GoLYTELY prep (10/03/2018 @ 1600) -Supportive care -Further recommendations to follow 10/05/2018 Patient remains intubated Status post EGD colonoscopy 10/04/2018-findings of chronic gastritis no distinct source of bleeding identified on upper or lower endoscopy Assessment Chronic anemia Acute respiratory failure Hemoglobin 8.7 hematocrit 28 platelet 255 INR 1 CMP is pending Stool studies were all negative for C. difficile, WBCs stool, enteric pathogens PCR, leptospiral odium antigen, and Giardia antigen. 10/07/2018 Nausea vomiting Patient evaluated due to reported nausea and vomiting tube feeding this a.m. ICU nurse reports 40 mL residual gastric content mucoid, scant amount of possible tube feeding around PEG tube site No noted bleeding Abdomen mildly distended with bowel sounds present 10/08/2018 Assessment -patient's PEG tube was leaking overnight per ICU nurse, adjustment was done by the GI team, PEG tube was patent on aspiration with residual. Can resume tube feeding at 30 cc an hour. Monitor for leakage. 10/12/2018 Assessment Respiratory failure -patient is getting better now on CPAP Chronic gastritis Anemia chronic disease PEG tube for long-term use -functional 10/15/2018 Clogged PEG tube GI asked to reconsult due to evaluation needed for clogged PEG tube 10/15/2018 KUB: No dilated loops of small or large bowel. Percutaneous gastrostomy in place. The osseous structures are osteopenic. Heterotopic aspiration of about the superior hip joints bilaterally. Both hemidiaphragms are delineated. Persistent consolidative opacity in the right lower lung. 10/16/2018 Replacement of PEG tube Patient scheduled for Thursday replacement of the PEG Hemoglobin 9.7 hematocrit 30.6 platelet 288 INR 1 10/17/2018 patient remains in the intensive care setting labs reviewed which shows stable hemoglobin at 9.1. No family present, continues with obstructed gastric tube, plans to replace on . No other acute changes noted from a GI perspective 10/19/2018 Chronic anemia -likely due to chronic disease and comorbidities Hypokalemia Status post PEG tube placement redo Hemoglobin 8.4 hematocrit 26.2 platelet 309 INR 1 Potassium 3.4 Plan N.p.o. Okay with starting tube feeding per dietary restriction Resume anticoagulant PPI Electrolyte replacement per attending Monitor labs Monitor active bleeding Supportive care GI will signed off, please reconsult as needed patient has been seen per myself and Dr. Perez , note is written on his behalf - Attending Attestation Dr. Perez
--- NOTE | 2018-10-19 16:04 | P.PNCC ---
Subjective Subjective Remarks/Hospital Course: 09/18: 68-year-old female past medical history of stroke, left BKA, who was on home hospice until just prior to arrival, presents for an evaluation of fever and altered mental status. According to EMS the patient had not required oxygen until beginning of this week when she had gradual increased demand of her oxygen. End-tidal CO2 prior to arrival was 6. Initial room nasal cannula saturation was 91, she was placed on nonrebreather position of comfort and transfer to emergency department. EMS related that the had elected to revoke the patient's DNR and hospice care prior to transferring her to the hospital. The patient apparently is normally a GCS of 14, apparently she does take some thickened food p.o. department the patient was severely altered with GCS of 6 on arrival [id number] and was intubated by ED attending for an airway protection. 09/19: Remains sedated, orally intubated on mechanical ventilation. CT chest showed right lower lobe lung mass suspicious for malignancy. Patient has a PEG tube following previous stroke. 09/20: Remains sedated, orally intubated on mechanical ventilation. Started on tube feeds. 09/21: Remains sedated, orally intubated on mechanical ventilation. Tolerating tube feeds. Right approximately swelling noted. 09/22 Is not tolerating CPAP trial when decrease PS below 18. Daughter at bedside, says will be here later. Says they don't think they want to proceed with lung biopsy at this time, but on the other hand she discusses the possibility of re-do trach. She says they are not sure how to proceed. I suggested we meet together. Daughter states she has been bedridden since stroke about 4 years ago. Has been in intermediate. PEG due to dysphagia, does not eat. Speaks a little but daughter states she has declined significantly over the last 2 weeks. 09/23 No significant change. Patient does not tolerate CPAP. Family is very clear that they do not wish to pursue biopsy or diagnosis of suspected lung cancer. At this time, they wish to continue supportive care with vent and FULL CODE. 09/24 No change. Does not tolerate CPAP. Will diurese for positive fluid balance. 09/25 Now on CPAP 20/5 and not tolerating wean. Continue attempts at diuresis to address positive fluid balance since admission 09/26: Remains sedated, orally intubated on mechanical ventilation. Hold CPAP trials yesterday 09/27 Patient is sedated with Diprivan and intubated. Tolerating tube feeds. Afebrile. 09/28 Patient remains intubated and sedated. T;100.8 09/29 Has not made any progress towards weaning. Family offered comfort measures however they expressed desire to proceed with trach Subjective: 09/30 status post bedside tracheostomy yesterday by Dr. Gavin. Discontinued propofol drip. On CPAP 14/5 for 2 hours today. BP is low, will need to hold metoprolol and titrate back on cardizem (nurses held some doses yesterday too). Positive fluid balance but not able to diurese today due to low BP. Awaiting bed at [facility]. 10/01 Patient remains on ventilator via trach. On no sedation. Hgb 6.7 this morning and T: 100.4 at midnight. Tachycardic. 10/02 Patient is on ventilator via trach. On no sedation. Spiked fever with T: 101.5. s/p transfusion 2u PRBC yesterday. Mcmillan/thick secretions noted per nursing staff. 10/03 Patient had low grade fever with T:100.4 last night. Tube feeds held for abd distention. KUB yesterday showed normal bowel gas pattern. 10/04 Patient is on ventilator via trach. For panendoscopy today. T:99.8 last night. 10/05 Patient is on ventilator via trach, on no drips. s/p panendoscopy yesterday showed chronic gastritis with no source of bleeding identified on upper or lower endoscopy. Afebrile. 10/06 Patient remains on ventilator via trach. T:99.9 yesterday 10/07: Remains on the vent continues to fail CPAP trials due to tachypnea. No nausea vomiting overnight currently resolved. Chest tube had been restarted. Low-grade fever 100.6 10/08: Continues to fail CPAP trials. However on vent support appears comfortable. Daughter at the bedside updated. No fever today 10/09: No acute changes overnight. The patient continues to fail CPAP. Patient tolerating tube feeds. 10/10: Afebrile .patient tolerating CPAP trials this a.m.. False level was noted to be low replacement underway. Bowel movements x2 last night 10/11: Patient continues to tolerate CPAP trials 3-4 hours/day Glucerna tube feeds increased to 45 cc/an hour as recommended by dietitian. 10/12: Patient tolerating CPAP trials only 3-4 hours a day. Patient nodding head yes and no to questions, appears calm and comfortable. Medical status update provided to daughter at bedside. 10/13: Patient was noted to have cuff leak, trach ties then positioned appropriately, with resolution of cuff leak. Patient tolerating tube feeds. Continues on CPAP trials. 10/14: Afebrile. The patient tolerated CPAP trials for approximately 8 hours yesterday. 10/15: Afebrile. Peg tube clogged , multiple attempts to open ,unsuccessful. GI consulted for recommendations. 10/16: Plan for GI for placement of new PEG tube today. IV fluids initiated normal saline at 50 cc an hour. 10/17: GI and to evaluate patient yesterday afternoon NG was placed transfer for placement of PEG tube on Thursday. Today patient removed NG tube to be replaced by WOOD HACKER and tube feeds to be reinstituted. IV fluids continue awaiting replacement of NG tube. 10/18: No acute changes overnight. The patient underwent PEG tube replacement this afternoon. Tube feeds to be reinitiated. Patient continues to respond by nodding head yes and no to questions. Denies pain. Patient tolerating CPAP trials approximately 3-4 hours a day. 10/19: More secretions noted today more suctioning frequency. Patient tolerating CPAP trials 2.5-3 hours today. Patient tolerating tube feeds. IV fluids discontinued. Objective Vital Signs / I&O: Vital Signs 10/18/18 16:00 10/18/18 16:13 10/18/18 16:15 Temperature 98.9 F Pulse Rate 90 86 85 Respiratory Rate 16 16 16 Blood Pressure 144/68 H 143/65 H Pulse Oximetry 100 100 100 10/18/18 16:30 10/18/18 16:45 10/18/18 17:00 Temperature Pulse Rate 87 92 H 93 H Respiratory Rate 16 16 17 Blood Pressure 133/57 L 133/61 130/56 L Pulse Oximetry 100 100 100 10/18/18 17:15 10/18/18 17:30 10/18/18 17:45 Temperature Pulse Rate 95 H 110 H 99 H Respiratory Rate 16 20 16 Blood Pressure 137/62 154/75 H 151/59 H Pulse Oximetry 100 100 100 10/18/18 18:00 10/18/18 18:15 10/18/18 18:30 Temperature Pulse Rate 112 H 118 H 113 H Respiratory Rate 19 24 19 Blood Pressure 129/62 137/77 147/67 H Pulse Oximetry 100 100 100 10/18/18 18:45 10/18/18 19:00 10/18/18 19:15 Temperature Pulse Rate 112 H 109 H 109 H Respiratory Rate 19 18 17 Blood Pressure 139/63 143/64 H 134/56 L Pulse Oximetry 99 99 100 10/18/18 19:30 10/18/18 19:45 10/18/18 20:00 Temperature 100.1 F H Pulse Rate 107 H 106 H 108 H Respiratory Rate 17 17 19 Blood Pressure 142/65 H 144/59 H 149/68 H Pulse Oximetry 100 98 99 10/18/18 20:14 10/18/18 20:15 10/18/18 20:30 Temperature Pulse Rate 106 H 106 H 105 H Respiratory Rate 20 29 H 31 H Blood Pressure 152/71 H 138/58 L Pulse Oximetry 100 100 99 10/18/18 20:45 10/18/18 21:00 10/18/18 21:15 Temperature Pulse Rate 110 H 118 H 112 H Respiratory Rate 28 H 33 H 18 Blood Pressure 132/59 L 158/70 H 138/57 L Pulse Oximetry 99 99 98 10/18/18 21:30 10/18/18 21:45 10/18/18 22:00 Temperature Pulse Rate 112 H 109 H 110 H Respiratory Rate 18 17 20 Blood Pressure 130/62 127/60 Pulse Oximetry 99 99 99 10/18/18 22:02 10/18/18 22:15 10/18/18 22:30 Temperature Pulse Rate 106 H 111 H 109 H Respiratory Rate 17 33 H 24 Blood Pressure 124/57 L 113/59 L 118/59 L Pulse Oximetry 99 99 99 10/18/18 23:00 10/18/18 23:35 10/19/18 00:00 Temperature Pulse Rate 110 H 113 H 107 H Respiratory Rate 31 H 19 17 Blood Pressure 107/70 121/60 Pulse Oximetry 100 100 10/19/18 01:00 10/19/18 01:20 10/19/18 02:00 Temperature Pulse Rate 94 H 108 H Respiratory Rate 16 16 18 Blood Pressure 128/60 143/68 H Pulse Oximetry 92 L 95 100 10/19/18 03:00 10/19/18 03:11 10/19/18 04:00 Temperature Pulse Rate 107 H 95 H 100 H Respiratory Rate 17 16 19 Blood Pressure 114/69 Pulse Oximetry 100 99 10/19/18 04:01 10/19/18 04:11 10/19/18 05:00 Temperature Pulse Rate 109 H 107 H Respiratory Rate 19 16 18 Blood Pressure 132/99 H 148/67 H Pulse Oximetry 99 100 100 10/19/18 06:00 10/19/18 07:00 10/19/18 08:00 Temperature 98.7 F Pulse Rate 101 H 110 H 109 H Respiratory Rate 18 22 27 H Blood Pressure 135/61 133/61 Pulse Oximetry 98 100 10/19/18 09:00 10/19/18 10:00 10/19/18 11:00 Temperature Pulse Rate 105 H 94 H 82 Respiratory Rate 16 16 16 Blood Pressure 108/55 L 133/61 139/65 Pulse Oximetry 100 100 100 10/19/18 11:19 10/19/18 11:20 10/19/18 12:00 Temperature 98.8 F Pulse Rate 83 94 H Respiratory Rate 6 L 6 L 24 Blood Pressure 145/64 H Pulse Oximetry 100 100 10/19/18 14:00 10/19/18 15:32 Temperature Pulse Rate 101 H 105 H Respiratory Rate 20 Blood Pressure Pulse Oximetry 100 Intake & Output 10/18/18 10/19/18 10/19/18 18:59 06:59 18:59 Intake Total 830 / 830 1877 / 1877 250 / 250 Output Total 525 / 525 425 / 425 Balance 305 / 305 1452 / 1452 250 / 250 Weight 57.7 kg Intake: IV 280 / 280 1285 / 1285 NS Inj 1,000 ML @ 50 mls/hr IV. 1285 / 1285 CONT .Q20H [facility] Rx#:[id number] Glycophos Inj 30 MMOL In NS Inj 280 / 280 250 ML @ 42 mls/hr IV.SIG UNSCH PRN Rx#:[id number] Tube Feeding Water Bolus Amount 250 / 250 250 / 250 Free Water Amount 250 / 250 250 / 250 250 / 250 Anesthesia Amount 50 / 50 Output: Urine Amount (Catheter) 525 / 525 425 / 425 Indwelling Urethral Catheter 525 / 525 425 / 425 Other: Date of Last Bowel Movement 10/18/18 10/19/18 10/18/18 # Incontinent Bowel Movements 2 3 Result Diagrams: 10/19/18 07:10 10/19/18 07:10 Objective Remarks: GENERAL: Well-nourished, well-developed patient female appearing older than stated age resting comfortably SKIN: Warm and dry. HEAD: Atraumatic. Normocephalic. EYES: Pupils equal and round. No scleral icterus. No injection or drainage. ENT: No nasal bleeding or discharge. Mucous membranes pink and moist. NECK: Tracheostomy in place, slight pink tinge to secretions, no active bleeding. CARDIOVASCULAR: S1S2 normal, No murmurs rubs or gallops. RESPIRATORY: Tracheostomy 8.0 Shiley in situ, currently on CPAP trials B/L equal air entry GASTROINTESTINAL: Abdomen soft, non-tender,distended. PEG tube in place no drainage. MUSCULOSKELETAL: Extremities without clubbing, cyanosis, or edema. s/p L AKA. NEUROLOGICAL: Awakens easily looks around. Blinks and squeezes hand to command. Nods head to yes and no questions Assessment and Plan - Assessment and Plan Plan: NEURO: History of stroke Off sedation. Monitor neuro status Avoid sedatives RESP: Acute respiratory failure on mechanical ventilation Emphysema Lung mass History of prior trach after stroke, has been subsequently decannulated Per Dr. De Jesus. not wishing to pursue CT-guided biopsy. Continue with vent support Daily CPAP trials. Vent bundle/nebs. Tolerated for 4 hours Percutaneous tracheostomy performed at bedside 09/29. Pulm toilet, trach care CV: HTN Monitor BP/heart rate keep MAP>65mmHg. On Cardizem 30mg q6 with hold orders. Labetalol as needed GI: Clogged PEG tube-resolved PEG in place. On Glucerna 1.5 @ 45ml/hr KUB abdomen 10/02 Normal bowel gas pattern. CT abd/pelvis 10/03: No evidence of bowel obstruction or ileus. GI consultedfor PEG tube malfunction. Fluids PEG tube replacement per GI 10/18 FEN/RENAL: Acute hypernatremia- resolved Monitor renal function, I/O's, electrolytes replacement per protocol. Free water 250ml Q8, ID: HCAP UTI Urine culture from 09/18 with providentia and Proteus. BC 10/01: NGTD sputum cx 1/29 and 10/03 : No growth On abx Cefepime and Vanco, d/c Vanco, monitor for signs of infections ( Fever, WBC) C-diff PCR negative on 10/01 HEME: R brachial DVT Anemia Lovenox 60 mg subcu every 12 hours. s/p Transfuse 2u PRBC 10/01 GI is following Repeat ultrasound bilateral upper extremities, F/u results ENDO: Diabetes mellitus Insulin sliding scale PROPH: SCD/Lovenox for DVT prophylaxis. Protonix 40mg Q12 for stress ulcer prophylaxis. 10/01 Doppler US UE b/l: Superficial venous thrombosis identified in the right cephalic vein. No evidence of DVT. 09/21 Doppler US RUE: Occlusive thrombus cephalic and brachial veins ACCESS: PIV x2. Full code Level 3 follow-up Planned transfer to LTAC when bed available Code Status: Full Discussed Condition With: daughter, and WOOD HACKER at bedside
--- NOTE | 2018-10-19 19:54 | P.PNPL ---
Subjective Interval history: 68 YOAA female who was with Hospice svc, now rescended back on Vent off sedation Tolerates TF Tolerated CPA 2-3 hrs Physical Exam Vital signs: Vital Signs 10/18/18 20:00 10/18/18 20:14 10/18/18 20:15 Temperature 100.1 F H Pulse Rate 108 H 106 H 106 H Respiratory Rate 19 20 29 H Blood Pressure 149/68 H 152/71 H Pulse Oximetry 99 100 100 10/18/18 20:30 10/18/18 20:45 10/18/18 21:00 Temperature Pulse Rate 105 H 110 H 118 H Respiratory Rate 31 H 28 H 33 H Blood Pressure 138/58 L 132/59 L 158/70 H Pulse Oximetry 99 99 99 10/18/18 21:15 10/18/18 21:30 10/18/18 21:45 Temperature Pulse Rate 112 H 112 H 109 H Respiratory Rate 18 18 17 Blood Pressure 138/57 L 130/62 127/60 Pulse Oximetry 98 99 99 10/18/18 22:00 10/18/18 22:02 10/18/18 22:15 Temperature Pulse Rate 110 H 106 H 111 H Respiratory Rate 20 17 33 H Blood Pressure 124/57 L 113/59 L Pulse Oximetry 99 99 99 10/18/18 22:30 10/18/18 23:00 10/18/18 23:35 Temperature Pulse Rate 109 H 110 H 113 H Respiratory Rate 24 31 H 19 Blood Pressure 118/59 L 107/70 Pulse Oximetry 99 100 10/19/18 00:00 10/19/18 01:00 10/19/18 01:20 Temperature Pulse Rate 107 H 94 H Respiratory Rate 17 16 16 Blood Pressure 121/60 128/60 Pulse Oximetry 100 92 L 95 10/19/18 02:00 10/19/18 03:00 10/19/18 03:11 Temperature Pulse Rate 108 H 107 H 95 H Respiratory Rate 18 17 16 Blood Pressure 143/68 H 114/69 Pulse Oximetry 100 100 10/19/18 04:00 10/19/18 04:01 10/19/18 04:11 Temperature Pulse Rate 100 H 109 H Respiratory Rate 19 19 16 Blood Pressure 132/99 H Pulse Oximetry 99 99 100 10/19/18 05:00 10/19/18 06:00 10/19/18 07:00 Temperature Pulse Rate 107 H 101 H 110 H Respiratory Rate 18 18 22 Blood Pressure 148/67 H 135/61 Pulse Oximetry 100 98 10/19/18 08:00 10/19/18 09:00 10/19/18 10:00 Temperature 98.7 F Pulse Rate 109 H 105 H 94 H Respiratory Rate 27 H 16 16 Blood Pressure 133/61 108/55 L 133/61 Pulse Oximetry 100 100 100 10/19/18 11:00 10/19/18 11:19 10/19/18 11:20 Temperature Pulse Rate 82 83 Respiratory Rate 16 6 L 6 L Blood Pressure 139/65 Pulse Oximetry 100 100 10/19/18 12:00 10/19/18 14:00 10/19/18 15:00 Temperature 98.8 F Pulse Rate 94 H 101 H 100 H Respiratory Rate 24 36 H Blood Pressure 145/64 H 147/65 H Pulse Oximetry 100 100 10/19/18 15:32 10/19/18 16:00 10/19/18 18:00 Temperature 98.8 F Pulse Rate 105 H 99 H 104 H Respiratory Rate 20 10 L Blood Pressure 138/61 Pulse Oximetry 100 100 Intake & Output 10/19/18 10/19/18 10/20/18 06:59 18:59 06:59 Intake Total 1877 / 1877 1347 / 1347 Output Total 425 / 425 525 / 525 Balance 1452 / 1452 822 / 822 Weight 57.7 kg Intake: IV 1285 / 1285 NS Inj 1,000 ML @ 50 mls/hr IV. 1285 / 1285 CONT .Q20H [facility] Rx#:[id number] Tube Feeding 92 / 92 347 / 347 Water Bolus Amount 250 / 250 500 / 500 Free Water Amount 250 / 250 500 / 500 Output: Urine Amount (Catheter) 425 / 425 525 / 525 Indwelling Urethral Catheter 425 / 425 525 / 525 Other: Date of Last Bowel Movement 10/19/18 10/19/18 # Bowel Movements 2 # Incontinent Bowel Movements 3 GENERAL: Elderly AA female, on Vent SKIN: Warm and dry. HEAD: Normocephalic. EYES: No scleral icterus. No injection or drainage. NECK: Supple, trachea midline. No JVD or lymphadenopathy. has trach CARDIOVASCULAR: Regular rate and rhythm without murmurs, gallops, or rubs. RESPIRATORY: Breath sounds equal bilaterally. No accessory muscle use. GASTROINTESTINAL: Abdomen soft, non-tender, nondistended. MUSCULOSKELETAL: No cyanosis, or edema. BACK: Nontender without obvious deformity. No CVA tenderness. - Urinary Catheter Management Indwelling Temp Sensing Catheter Cath placed during this visit: yes, but has since been removed by the nurse Reason for continuing: Severe pressure ulcer/wound Insertion date: 09/18/18 Insertion time: 18:50 Removal date: 09/23/18 Removal time: 16:00 Female External Cath placed during this visit: no Reason for continuing: Severe pressure ulcer/wound Straight Cath placed during this visit: no Indwelling Urethral Catheter Cath placed during this visit: yes Reason for continuing: Severe pressure ulcer/wound Insertion date: 10/07/18 Insertion time: 10:00 Assessment and Plan - Plan IMPRESSION: VDRF large Rt lung mass COPD HTN H/O CVA PLAN: Cont Vent PRVC AC 16, Fi02 35% CPAP trial daily Aerosol nebs Cont Abx Trach care. EMMA RN at .
--- NOTE | 2018-10-19 21:01 | US ---
EXAM DATE: 10/19/2018 8:54 PM EST AGE/SEX: 68 years / Female INDICATIONS: Bilateral arm swelling. CLINICAL DATA: This is the patient's initial encounter. Patient reports that signs and symptoms have been present for 1 day and indicates a pain score of 1/10. MEDICAL/SURGICAL HISTORY: Hypertension. Acute respiratory failure. CVA. Diabetes. Dysphagia. He miparesis. Hemiplegia. Hypoxia. . Tracheostomy. Left above knee amputation. PEG tube placement. [place] [facility] [place] 10/01/2018. . FINDINGS: Right Upper Extremity: The vessels are compressible and augmentation response is documented. No fill ing defects are seen. The flow is phasic with respiration. Left Upper Extremity: Occlusive thrombus in the mid and distal cephalic vein. Left jugular, subclavi an, axillary, brachial and basilic veins are patent. Other: None. CONCLUSION: 1. Occlusive thrombus in the left cephalic vein. 2. No DVT in the right arm. Electronically signed by: Scott Ogden MD Board Certified Radiologist 10/19/2018 8:59 PM EST
[2018-10-20] MEDS: Pantoprazole Inj 40 MG Vial IV.PUSH SCH ×3 (03:02→23:14)
[2018-10-20] MEDS: Oral Hygiene Kit OROPHARYNG SCH ×5 (03:02→23:14)
[2018-10-20] MEDS: Insulin NovoLIN Regular Correctional Sugar Inj SQ SCH ×5 (03:07→23:15)
[2018-10-20] MEDS: dilTIAZem 30 MG Tablet PO SCH ×4 (04:46→21:09)
[2018-10-20 06:11] LABS: Anion Gap 8 meq/L (5-15); Blood Urea Nitrogen 5 mg/dL (7-18); Calcium 8.7 mg/dL (8.5-10.1); Carbon Dioxide 26.8 meq/L (21.0-32.0); Chloride 107 meq/L (98-107); Glomerular Filtration Rate Greater Than 89 mL/min (>89); Glucose,Random 102 mg/dL (74-106); Potassium 3.6 meq/L (3.5-5.1); Sodium 142 meq/L (136-145)
[2018-10-20] MEDS: Enoxaparin Inj 60 MG/0.6 ML Syringe SQ SCH ×2 (08:48→20:17)
[2018-10-20] MEDS: Chlorhexidine 0.12% Oral Kit 15 ML UDC OROPHARYNG SCH ×2 (10:13→20:16)
[2018-10-20] MEDS: Senna/Docusate Sodium 8.6/50 MG Tablet PO SCH ×2 (10:13→20:17)
--- NOTE | 2018-10-20 14:52 | P.PNCC ---
Subjective Subjective Remarks/Hospital Course: 09/18: 68-year-old female past medical history of stroke, left BKA, who was on home hospice until just prior to arrival, presents for an evaluation of fever and altered mental status. According to EMS the patient had not required oxygen until beginning of this week when she had gradual increased demand of her oxygen. End-tidal CO2 prior to arrival was 6. Initial room nasal cannula saturation was 91, she was placed on nonrebreather position of comfort and transfer to emergency department. EMS related that the had elected to revoke the patient's DNR and hospice care prior to transferring her to the hospital. The patient apparently is normally a GCS of 14, apparently she does take some thickened food p.o. department the patient was severely altered with GCS of 6 on arrival [id number] and was intubated by ED attending for an airway protection. 09/19: Remains sedated, orally intubated on mechanical ventilation. CT chest showed right lower lobe lung mass suspicious for malignancy. Patient has a PEG tube following previous stroke. 09/20: Remains sedated, orally intubated on mechanical ventilation. Started on tube feeds. 09/21: Remains sedated, orally intubated on mechanical ventilation. Tolerating tube feeds. Right approximately swelling noted. 09/22 Is not tolerating CPAP trial when decrease PS below 18. Daughter at bedside, says will be here later. Says they don't think they want to proceed with lung biopsy at this time, but on the other hand she discusses the possibility of re-do trach. She says they are not sure how to proceed. I suggested we meet together. Daughter states she has been bedridden since stroke about 4 years ago. Has been in [facility]. PEG due to dysphagia, does not eat. Speaks a little but daughter states she has declined significantly over the last 2 weeks. 09/23 No significant change. Patient does not tolerate CPAP. Family is very clear that they do not wish to pursue biopsy or diagnosis of suspected lung cancer. At this time, they wish to continue supportive care with vent and FULL CODE. 09/24 No change. Does not tolerate CPAP. Will diurese for positive fluid balance. 09/25 Now on CPAP 20/5 and not tolerating wean. Continue attempts at diuresis to address positive fluid balance since admission 09/26: Remains sedated, orally intubated on mechanical ventilation. Hold CPAP trials yesterday 09/27 Patient is sedated with Diprivan and intubated. Tolerating tube feeds. Afebrile. 09/28 Patient remains intubated and sedated. T;100.8 09/29 Has not made any progress towards weaning. Family offered comfort measures however they expressed desire to proceed with trach 09/30 status post bedside tracheostomy yesterday by Dr. Gavin. Discontinued propofol drip. On CPAP 14/5 for 2 hours today. BP is low, will need to hold metoprolol and titrate back on cardizem (nurses held some doses yesterday too). Positive fluid balance but not able to diurese today due to low BP. Awaiting bed at [facility]. 10/01 Patient remains on ventilator via trach. On no sedation. Hgb 6.7 this morning and T: 100.4 at midnight. Tachycardic. 10/02 Patient is on ventilator via trach. On no sedation. Spiked fever with T: 101.5. s/p transfusion 2u PRBC yesterday. Mcmillan/thick secretions noted per nursing staff. 10/03 Patient had low grade fever with T:100.4 last night. Tube feeds held for abd distention. KUB yesterday showed normal bowel gas pattern. 10/04 Patient is on ventilator via trach. For panendoscopy today. T:99.8 last night. 10/05 Patient is on ventilator via trach, on no drips. s/p panendoscopy yesterday showed chronic gastritis with no source of bleeding identified on upper or lower endoscopy. Afebrile. 10/06 Patient remains on ventilator via trach. T:99.9 yesterday 10/07: Remains on the vent continues to fail CPAP trials due to tachypnea. No nausea vomiting overnight currently resolved. Chest tube had been restarted. Low-grade fever 100.6 10/08: Continues to fail CPAP trials. However on vent support appears comfortable. Daughter at the bedside updated. No fever today 10/09: No acute changes overnight. The patient continues to fail CPAP. Patient tolerating tube feeds. 10/10: Afebrile .patient tolerating CPAP trials this a.m.. False level was noted to be low replacement underway. Bowel movements x2 last night 10/11: Patient continues to tolerate CPAP trials 3-4 hours/day Glucerna tube feeds increased to 45 cc/an hour as recommended by dietitian. 10/12: Patient tolerating CPAP trials only 3-4 hours a day. Patient nodding head yes and no to questions, appears calm and comfortable. Medical status update provided to daughter at bedside. 10/13: Patient was noted to have cuff leak, trach ties then positioned appropriately, with resolution of cuff leak. Patient tolerating tube feeds. Continues on CPAP trials. 10/14: Afebrile. The patient tolerated CPAP trials for approximately 8 hours yesterday. 10/15: Afebrile. Peg tube clogged , multiple attempts to open ,unsuccessful. GI consulted for recommendations. 10/16: Plan for GI for placement of new PEG tube today. IV fluids initiated normal saline at 50 cc an hour. 10/17: GI and to evaluate patient yesterday afternoon NG was placed transfer for placement of PEG tube on Thursday. Today patient removed NG tube to be replaced by CHIEF I DISPATCHER and tube feeds to be reinstituted. IV fluids continue awaiting replacement of NG tube. 10/18: No acute changes overnight. The patient underwent PEG tube replacement this afternoon. Tube feeds to be reinitiated. Patient continues to respond by nodding head yes and no to questions. Denies pain. Patient tolerating CPAP trials approximately 3-4 hours a day. 10/19: More secretions noted today more suctioning frequency. Patient tolerating CPAP trials 2.5-3 hours today. Patient tolerating tube feeds. IV fluids discontinued. Subjective 10/20: Currently on PSV trial. Tolerating tube feeds at goal. Afebrile. No new issues overnight. Objective Vital Signs / I&O: Vital Signs 10/19/18 15:00 10/19/18 15:32 10/19/18 16:00 Temperature 98.8 F Pulse Rate 100 H 105 H 99 H Respiratory Rate 36 H 20 10 L Blood Pressure 147/65 H 138/61 Pulse Oximetry 100 100 100 10/19/18 18:00 10/19/18 20:00 10/19/18 20:15 Temperature 99.1 F Pulse Rate 104 H 107 H 103 H Respiratory Rate 29 H Blood Pressure 148/70 H Pulse Oximetry 100 100 10/19/18 21:02 10/19/18 22:00 10/20/18 00:00 Temperature 99.3 F Pulse Rate 102 H 104 H 117 H Respiratory Rate 18 21 Blood Pressure 126/64 Pulse Oximetry 100 100 10/20/18 00:12 10/20/18 02:00 10/20/18 04:00 Temperature 98.9 F Pulse Rate 112 H 112 H 109 H Respiratory Rate 23 22 Blood Pressure 145/69 H Pulse Oximetry 100 10/20/18 04:01 10/20/18 04:02 10/20/18 06:00 Temperature Pulse Rate 109 H 87 Respiratory Rate 17 17 Blood Pressure Pulse Oximetry 99 10/20/18 07:00 10/20/18 08:00 10/20/18 09:00 Temperature Pulse Rate 99 H 114 H 115 H Respiratory Rate 16 18 20 Blood Pressure 131/62 148/67 H 139/63 Pulse Oximetry 100 100 100 10/20/18 10:00 10/20/18 12:00 10/20/18 12:18 Temperature Pulse Rate 110 H 106 H Respiratory Rate 18 16 Blood Pressure Pulse Oximetry 100 Intake & Output 10/19/18 10/20/18 10/20/18 18:59 06:59 18:59 Intake Total 1347 / 1347 712 / 712 965 / 965 Output Total 525 / 525 300 / 300 Balance 822 / 822 412 / 412 965 / 965 Weight 56.9 kg Intake: IV 715 / 715 Tube Feeding 347 / 347 362 / 362 Water Bolus Amount 500 / 500 100 / 100 Free Water Amount 500 / 500 250 / 250 250 / 250 Output: Urine Amount (Catheter) 525 / 525 300 / 300 Indwelling Urethral Catheter 525 / 525 300 / 300 Other: Date of Last Bowel Movement 10/19/18 10/18/18 10/18/18 # Bowel Movements 2 # Incontinent Bowel Movements 2 Result Diagrams: 10/19/18 07:10 10/20/18 05:11 Other Results: Microbiology 10/01/18 16:57 Blood - Peripheral Aerobic Blood Culture - Final No growth in 5 days 10/01/18 16:57 Blood - Peripheral Anaerobic Blood Culture - Final No growth in 5 days 10/01/18 16:50 Blood - Peripheral Aerobic Blood Culture - Final No growth in 5 days 10/01/18 16:50 Blood - Peripheral Anaerobic Blood Culture - Final No growth in 5 days 10/03/18 08:05 Sputum - Endotracheal Gram Stain - Final 10/03/18 08:05 Sputum - Endotracheal Sputum Culture - Final Rare growth normal respiratory michelle 10/01/18 16:10 Stool Cryptosporidium Antigen - Final Negative - No Cryptosporicium antigen detected In selected cases of patients with a history of immunosuppression or foreign travel, a full ova and parasites examination may be desired. Contact the microbiology lab if full workup is indicated and subit another specimen for testing. 10/01/18 16:10 Stool Giardia Antigen (ABELINO) - Final Negative - No Giardia Antigen detected In selected cases of patients with a history of immunosuppression or foreign travel, a full ova and parasites examination may be desired. Contact the microbiology lab if full workup is indicated and subit another specimen for testing. 10/01/18 13:00 Sputum - Endotracheal Gram Stain - Final 10/01/18 13:00 Sputum - Endotracheal Sputum Culture - Final Proteus mirabilis 10/01/18 16:10 Stool Enteric Pathogens (PCR) - Final 10/01/18 16:10 Stool Stool for WBCs - Final 09/28/18 15:30 Clean Catch Urine Urine Culture - Final No growth in 48 hours 09/28/18 16:00 Sputum - Endotracheal Gram Stain - Final 09/28/18 16:00 Sputum - Endotracheal Sputum Culture - Final No growth in 48 hours 09/18/18 18:45 Blood - Peripheral Aerobic Blood Culture - Final No growth in 5 days 09/18/18 18:45 Blood - Peripheral Anaerobic Blood Culture - Final No growth in 5 days 09/18/18 18:55 Blood - Peripheral Aerobic Blood Culture - Final No growth in 5 days 09/18/18 18:55 Blood - Peripheral Anaerobic Blood Culture - Final No growth in 5 days 09/19/18 12:30 Sputum - Endotracheal Gram Stain - Final 09/19/18 12:30 Sputum - Endotracheal Sputum Culture - Final Light growth normal respiratory michelle 09/18/18 18:35 Catheterized Urine Urine Culture - Final Proteus mirabilis Providencia stuartii Imaging: Head CT 09/18/18 18:40 CONCLUSION: 1. Stable appearance of the brain. Marked ventriculomegaly and white matter disease. . Chest X-Ray 09/18/18 18:41 CONCLUSION: 8.6 cm right lower lobe mass is noted suspicious for malignancy until proven otherwise. A mass was described previously in 2017 in the right lower lobe. Chest CTA 09/18/18 19:26 CONCLUSION: 1. There is no evidence for pulmonary embolism. 2. Severe emphysema. 3. There is a large soft tissue mass in the right lower lobe suspicious for malignancy until proven otherwise. Chest X-Ray 09/20/18 00:00 CONCLUSION: Bibasilar consolidations. The left is new from the prior study. Venous Doppler Study 09/21/18 00:00 CONCLUSION: 1. There is occlusive thrombus within the right cephalic and brachial veins. Chest X-Ray 09/22/18 05:00 CONCLUSION: Unchanged bibasilar consolidation particularly on the right. Chest X-Ray 09/27/18 07:40 CONCLUSION: Enlarging right lung base consolidation since 5 days ago. Chest X-Ray 09/29/18 14:08 CONCLUSION: 1. Interval tracheostomy tube placement. 2. Unchanged right lower lobe consolidation and bibasilar interstitial prominence. Venous Doppler Study 10/01/18 00:00 CONCLUSION: 1. Superficial venous thrombosis identified in the right cephalic vein. 2. No evidence of DVT. Abdomen X-Ray 10/02/18 06:48 CONCLUSION: Persistent airspace consolidation involving the right lower lobe. Abdominal bowel gas pattern is normal. Chest X-Ray 10/02/18 06:48 CONCLUSION: There is persistent airspace consolidation involving the right lower lobe. There is improved aeration on the current exam. Abdomen/Pelvis CT 10/03/18 07:26 CONCLUSION: 1. There is air and fluid identified within the stomach which may account for the patient's perceived distention. No evidence of bowel obstruction or ileus. 2. Extensive atherosclerosis. 3. Persistent right lower lobe airspace consolidation. Chest X-Ray 10/07/18 00:00 CONCLUSION: Stable chest x-ray with airspace opacity in the right lower lung zone. Abdomen X-Ray 10/08/18 09:15 CONCLUSION: No acute findings Chest X-Ray 10/10/18 04:00 CONCLUSION: 1. No significant interval change. 2. Stable parenchymal opacity in the right mid to lower lung zones. Abdomen X-Ray 10/15/18 14:53 CONCLUSION: No dilated loops of small or large bowel. PEG tube in place. Chest X-Ray 10/16/18 19:56 CONCLUSION: Stable appearance of mass in right lower lobe. Slight increase in basilar airspace disease since October 10. Venous Doppler Study 10/19/18 00:00 CONCLUSION: 1. Occlusive thrombus in the left cephalic vein. 2. No DVT in the right arm. Objective Remarks: GENERAL: 68-year-old female, well-developed patient female on ventilator via tracheostomy SKIN: Warm and dry. HEAD: Atraumatic. Normocephalic. EYES: Pupils equal and round. No scleral icterus. No injection or drainage. ENT: No nasal bleeding or discharge. Mucous membranes pink and moist. NECK: Tracheostomy in place, slight pink tinge to secretions, no active bleeding. CARDIOVASCULAR: S1S2 normal, No murmurs rubs or gallops. RESPIRATORY: Tracheostomy 8.0 Shiley in situ, currently on CPAP trials B/L equal air entry GASTROINTESTINAL: Abdomen soft, non-tender,distended. PEG tube in place no drainage. MUSCULOSKELETAL: Extremities without clubbing, cyanosis, or edema. s/p L AKA. NEUROLOGICAL: Awakens easily looks around. Blinks and squeezes hand to command. Nods head to yes and no questions Assessment and Plan - Assessment and Plan Plan: NEURO: History of stroke Off sedation. Monitor neuro status Currently on acetaminophen 60 p.o. every 6 hours as needed fever/pain with a 2 and hydrocodone/acetaminophen for pain RESP: Acute respiratory failure on mechanical ventilation Emphysema Lung mass History of prior trach after stroke, has been subsequently decannulated Per Dr. De Jesus. not wishing to pursue CT-guided biopsy. Continue with vent support Daily CPAP trials. Vent bundle Albuterol/ipratropium aerosols every 6 hours with albuterol aerosols every 2 as needed dyspnea Percutaneous tracheostomy performed at bedside 09/29. Pulm toilet, trach care CV: HTN Monitor BP/heart rate keep MAP>65mmHg. On Cardizem 30mg q6 with hold orders. Wilson 60 mg daily metoprolol tartrate 5 mg twice daily at home Labetalol as needed GI: Clogged PEG tube-resolved PEG in place. On Glucerna 1.5 @ 45ml/hr KUB abdomen 10/02 Normal bowel gas pattern. CT abd/pelvis 10/03: No evidence of bowel obstruction or ileus. GI consultedfor PEG tube malfunction. Fluids PEG tube replacement per GI 10/18 FEN/RENAL: Acute hypernatremia- resolved Monitor renal function, I/O's, electrolytes replacement per protocol. Free water 250ml Q8, ID: HCAP UTI Urine culture from 09/18 with providentia and Proteus. BC 10/01: NGTD sputum cx 09/28 and 10/03 : No growth On abx Cefepime and Vanco, d/c Vanco, monitor for signs of infections ( Fever, WBC) C-diff PCR negative on 10/01 HEME: R brachial DVT Anemia/microcytic Enoxaparin 60 mg subcu every 12 hours. s/p Transfuse 2u PRBC 10/01 ENDO: Diabetes mellitus Insulin sliding scale PROPH: SCD/enoxaparin for DVT prophylaxis. Protonix 40mg Q12 for stress ulcer prophylaxis. 10/01 Doppler US UE b/l: Superficial venous thrombosis identified in the right cephalic vein. No evidence of DVT. 09/21 Doppler US RUE: Occlusive thrombus cephalic and brachial veins ACCESS: PIV x2. Full code Level 3 follow-up Planned transfer to LTAC when bed available
[2018-10-20] MEDS: Artificial Tears Opth Drops 15 ML Bottle EACH EYE SCH ×2 (17:26→23:15)
[2018-10-20] MEDS ORDERED: RESP: Lidocaine 4% 4 ML Neb Kit NEB PRN (17:59)
--- NOTE | 2018-10-20 19:00 | P.PNPL ---
Subjective Interval history: 68 YOAA female who was with Hospice svc, now rescended back on Vent off sedation Tolerates TF Did't tolerate CPAP, became tachypnoic Physical Exam Vital signs: Vital Signs 10/19/18 20:00 10/19/18 20:15 10/19/18 21:02 Temperature 99.1 F Pulse Rate 107 H 103 H 102 H Respiratory Rate 29 H 18 Blood Pressure 148/70 H Pulse Oximetry 100 100 100 10/19/18 22:00 10/20/18 00:00 10/20/18 00:12 Temperature 99.3 F Pulse Rate 104 H 117 H 112 H Respiratory Rate 21 23 Blood Pressure 126/64 Pulse Oximetry 100 10/20/18 02:00 10/20/18 04:00 10/20/18 04:01 Temperature 98.9 F Pulse Rate 112 H 109 H Respiratory Rate 22 17 Blood Pressure 145/69 H Pulse Oximetry 100 99 10/20/18 04:02 10/20/18 06:00 10/20/18 07:00 Temperature Pulse Rate 109 H 87 99 H Respiratory Rate 17 16 Blood Pressure 131/62 Pulse Oximetry 100 10/20/18 08:00 10/20/18 09:00 10/20/18 10:00 Temperature Pulse Rate 114 H 115 H 110 H Respiratory Rate 18 20 15 Blood Pressure 148/67 H 139/63 147/65 H Pulse Oximetry 100 100 100 10/20/18 11:00 10/20/18 12:00 10/20/18 12:18 Temperature Pulse Rate 102 H 100 H 106 H Respiratory Rate 16 16 16 Blood Pressure 124/57 L 124/60 Pulse Oximetry 100 100 10/20/18 13:00 10/20/18 14:00 10/20/18 15:00 Temperature Pulse Rate 100 H 90 111 H Respiratory Rate 16 16 18 Blood Pressure 117/56 L 118/56 L 152/70 H Pulse Oximetry 100 100 99 10/20/18 15:08 10/20/18 15:23 10/20/18 16:00 Temperature Pulse Rate 118 H 119 H Respiratory Rate 21 24 20 Blood Pressure 149/86 H Pulse Oximetry 100 100 10/20/18 17:00 10/20/18 18:00 Temperature Pulse Rate 121 H 115 H Respiratory Rate 16 20 Blood Pressure 143/66 H 136/66 Pulse Oximetry 100 100 Intake & Output 10/19/18 10/20/18 10/20/18 18:59 06:59 18:59 Intake Total 1347 / 1347 712 / 712 1937 / 1937 Output Total 525 / 525 300 / 300 225 / 225 Balance 822 / 822 412 / 412 1712 / 1712 Weight 56.9 kg Intake: IV 715 / 715 Tube Feeding 347 / 347 362 / 362 722 / 722 Water Bolus Amount 500 / 500 100 / 100 Free Water Amount 500 / 500 250 / 250 500 / 500 Output: Urine Amount (Catheter) 525 / 525 300 / 300 225 / 225 Indwelling Urethral Catheter 525 / 525 300 / 300 225 / 225 Other: Date of Last Bowel Movement 10/19/18 10/18/18 10/18/18 # Bowel Movements 2 # Incontinent Bowel Movements 2 GENERAL: Elderly AA female, on vent SKIN: Warm and dry. HEAD: Normocephalic. EYES: No scleral icterus. No injection or drainage. NECK: Supple, trachea midline. No JVD or lymphadenopathy. has tarch CARDIOVASCULAR: Regular rate and rhythm without murmurs, gallops, or rubs. RESPIRATORY: Breath sounds equal bilaterally. No accessory muscle use. GASTROINTESTINAL: Abdomen soft, non-tender, nondistended. PEG in place MUSCULOSKELETAL: No cyanosis, or edema. AKA BACK: Nontender without obvious deformity. No CVA tenderness. - Urinary Catheter Management Indwelling Temp Sensing Catheter Cath placed during this visit: yes, but has since been removed by the nurse Reason for continuing: Severe pressure ulcer/wound Insertion date: 09/18/18 Insertion time: 18:50 Removal date: 09/23/18 Removal time: 16:00 Female External Cath placed during this visit: no Reason for continuing: Severe pressure ulcer/wound Straight Cath placed during this visit: no Indwelling Urethral Catheter Cath placed during this visit: yes Reason for continuing: Severe pressure ulcer/wound Insertion date: 10/07/18 Insertion time: 10:00 Assessment and Plan - Plan IMPRESSION: VDRF large Rt lung mass COPD HTN H/O CVA PLAN: Cont Vent PRVC AC 16, Fi02 35% CPAP trial daily Aerosol nebs Cont Abx Trach care. EMMA RN at .
[2018-10-20] MEDS: RESP: Lidocaine PF 4% 5 ML Neb NEB PRN (21:53)
[2018-10-21] MEDS: dilTIAZem 30 MG Tablet PO SCH ×4 (03:03→22:04)
[2018-10-21] MEDS: Oral Hygiene Kit OROPHARYNG SCH ×3 (03:05→23:52)
[2018-10-21] MEDS: RESP: Lidocaine PF 4% 5 ML Neb NEB PRN ×2 (03:43→08:05)
[2018-10-21] MEDS: Insulin NovoLIN Regular Correctional Sugar Inj SQ SCH ×4 (05:00→23:52)
[2018-10-21 06:24] LABS: Baso % (Auto) 0.6 % (0.0-2.0); Eos # (Auto) 0.2 th/mm3 (0.0-0.4); Eos % (Auto) 2.3 % (0.0-4.0); Hematocrit 28.8 % (35.0-46.0); Hemoglobin 9.2 gm/dL (11.6-15.3); Lymph # (Auto) 1.3 th/mm3 (1.0-4.8); Lymph % (Auto) 19.1 % (9.0-44.0); Mean Corpuscular HGB Conc 31.9 % (32.0-36.0); Mean Corpuscular Hemoglobin 25.1 pg (27.0-34.0); Mean Corpuscular Volume 78.7 fL (80.0-100.0); Mean Platelet Volume 9.1 fL (7.0-11.0); Mono % (Auto) 14.3 % (0.0-8.0); Neut # (Auto) 4.4 th/mm3 (1.8-7.7); Neut % (Auto) 63.7 % (16.0-70.0); Platelet Count 354 th/mm3 (150-450); Red Blood Count 3.66 mil/mm3 (4.00-5.30); Red Cell Distribution Width 20.5 % (11.6-17.2)
[2018-10-21 06:41] LABS: Alanine Aminotransferase 10 U/L (10-53); Albumin 2.4 g/dL (3.4-5.0); Anion Gap 6 meq/L (5-15); Aspartate Aminotransferase 12 U/L (15-37); Blood Urea Nitrogen 9 mg/dL (7-18); Calcium 8.4 mg/dL (8.5-10.1); Carbon Dioxide 29.4 meq/L (21.0-32.0); Chloride 109 meq/L (98-107); Glomerular Filtration Rate Greater Than 89 mL/min (>89); Glucose,Random 128 mg/dL (74-106); Magnesium 2.1 mg/dL (1.5-2.5); Phosphorus 2.4 mg/dL (2.5-4.9); Potassium 3.7 meq/L (3.5-5.1); Sodium 144 meq/L (136-145)
[2018-10-21 06:43] LABS: Alkaline Phosphatase 84 U/L (45-117); Total Protein 8.5 g/dL (6.4-8.2)
[2018-10-21] MEDS: Enoxaparin Inj 60 MG/0.6 ML Syringe SQ SCH ×2 (09:13→22:04)
[2018-10-21] MEDS: Senna/Docusate Sodium 8.6/50 MG Tablet PO SCH ×2 (09:13→22:04)
[2018-10-21] MEDS: Ascorbic Acid 500 MG Tablet G-TUBE SCH (09:13)
[2018-10-21] MEDS: Chlorhexidine 0.12% Oral Kit 15 ML UDC OROPHARYNG SCH ×2 (09:17→22:03)
--- NOTE | 2018-10-21 10:00 | P.PNCC ---
Subjective Subjective Remarks/Hospital Course: 09/18: 68-year-old female past medical history of stroke, left BKA, who was on home hospice until just prior to arrival, presents for an evaluation of fever and altered mental status. According to EMS the patient had not required oxygen until beginning of this week when she had gradual increased demand of her oxygen. End-tidal CO2 prior to arrival was 6. Initial room nasal cannula saturation was 91, she was placed on nonrebreather position of comfort and transfer to emergency department. EMS related that the had elected to revoke the patient's DNR and hospice care prior to transferring her to the hospital. The patient apparently is normally a GCS of 14, apparently she does take some thickened food p.o. department the patient was severely altered with GCS of 6 on arrival [id number] and was intubated by ED attending for an airway protection. 09/19: Remains sedated, orally intubated on mechanical ventilation. CT chest showed right lower lobe lung mass suspicious for malignancy. Patient has a PEG tube following previous stroke. 09/20: Remains sedated, orally intubated on mechanical ventilation. Started on tube feeds. 09/21: Remains sedated, orally intubated on mechanical ventilation. Tolerating tube feeds. Right approximately swelling noted. 09/22 Is not tolerating CPAP trial when decrease PS below 18. Daughter at bedside, says will be here later. Says they don't think they want to proceed with lung biopsy at this time, but on the other hand she discusses the possibility of re-do trach. She says they are not sure how to proceed. I suggested we meet together. Daughter states she has been bedridden since stroke about 4 years ago. Has been in assisted. PEG due to dysphagia, does not eat. Speaks a little but daughter states she has declined significantly over the last 2 weeks. 09/23 No significant change. Patient does not tolerate CPAP. Family is very clear that they do not wish to pursue biopsy or diagnosis of suspected lung cancer. At this time, they wish to continue supportive care with vent and FULL CODE. 09/24 No change. Does not tolerate CPAP. Will diurese for positive fluid balance. 09/25 Now on CPAP 20/5 and not tolerating wean. Continue attempts at diuresis to address positive fluid balance since admission 09/26: Remains sedated, orally intubated on mechanical ventilation. Hold CPAP trials yesterday 09/27 Patient is sedated with Diprivan and intubated. Tolerating tube feeds. Afebrile. 09/28 Patient remains intubated and sedated. T;100.8 09/29 Has not made any progress towards weaning. Family offered comfort measures however they expressed desire to proceed with trach 09/30 status post bedside tracheostomy yesterday by Dr. Gavin. Discontinued propofol drip. On CPAP 14/5 for 2 hours today. BP is low, will need to hold metoprolol and titrate back on cardizem (nurses held some doses yesterday too). Positive fluid balance but not able to diurese today due to low BP. Awaiting bed at [facility]. 10/01 Patient remains on ventilator via trach. On no sedation. Hgb 6.7 this morning and T: 100.4 at midnight. Tachycardic. 10/02 Patient is on ventilator via trach. On no sedation. Spiked fever with T: 101.5. s/p transfusion 2u PRBC yesterday. Mcmillan/thick secretions noted per nursing staff. 10/03 Patient had low grade fever with T:100.4 last night. Tube feeds held for abd distention. KUB yesterday showed normal bowel gas pattern. 10/04 Patient is on ventilator via trach. For panendoscopy today. T:99.8 last night. 10/05 Patient is on ventilator via trach, on no drips. s/p panendoscopy yesterday showed chronic gastritis with no source of bleeding identified on upper or lower endoscopy. Afebrile. 10/06 Patient remains on ventilator via trach. T:99.9 yesterday 10/07: Remains on the vent continues to fail CPAP trials due to tachypnea. No nausea vomiting overnight currently resolved. Chest tube had been restarted. Low-grade fever 100.6 10/08: Continues to fail CPAP trials. However on vent support appears comfortable. Daughter at the bedside updated. No fever today 10/09: No acute changes overnight. The patient continues to fail CPAP. Patient tolerating tube feeds. 10/10: Afebrile .patient tolerating CPAP trials this a.m.. False level was noted to be low replacement underway. Bowel movements x2 last night 10/11: Patient continues to tolerate CPAP trials 3-4 hours/day Glucerna tube feeds increased to 45 cc/an hour as recommended by dietitian. 10/12: Patient tolerating CPAP trials only 3-4 hours a day. Patient nodding head yes and no to questions, appears calm and comfortable. Medical status update provided to daughter at bedside. 10/13: Patient was noted to have cuff leak, trach ties then positioned appropriately, with resolution of cuff leak. Patient tolerating tube feeds. Continues on CPAP trials. 10/14: Afebrile. The patient tolerated CPAP trials for approximately 8 hours yesterday. 10/15: Afebrile. Peg tube clogged , multiple attempts to open ,unsuccessful. GI consulted for recommendations. 10/16: Plan for GI for placement of new PEG tube today. IV fluids initiated normal saline at 50 cc an hour. 10/17: GI and to evaluate patient yesterday afternoon NG was placed transfer for placement of PEG tube on Thursday. Today patient removed NG tube to be replaced by TABLE OPERATOR and tube feeds to be reinstituted. IV fluids continue awaiting replacement of NG tube. 10/18: No acute changes overnight. The patient underwent PEG tube replacement this afternoon. Tube feeds to be reinitiated. Patient continues to respond by nodding head yes and no to questions. Denies pain. Patient tolerating CPAP trials approximately 3-4 hours a day. 10/19: More secretions noted today more suctioning frequency. Patient tolerating CPAP trials 2.5-3 hours today. Patient tolerating tube feeds. IV fluids discontinued. 10/20: Currently on PSV trial. Tolerating tube feeds at goal. Afebrile. No new issues overnight. Subjective 10/21: Excessive coughing overnight. Tube feeds at goal. Afebrile. No new issues. Objective Vital Signs / I&O: Vital Signs 10/20/18 10:00 10/20/18 11:00 10/20/18 12:00 Temperature Pulse Rate 110 H 102 H 100 H Respiratory Rate 15 16 16 Blood Pressure 147/65 H 124/57 L 124/60 Pulse Oximetry 100 100 100 10/20/18 12:18 10/20/18 13:00 10/20/18 14:00 Temperature Pulse Rate 106 H 100 H 90 Respiratory Rate 16 16 16 Blood Pressure 117/56 L 118/56 L Pulse Oximetry 100 100 10/20/18 15:00 10/20/18 15:08 10/20/18 15:23 Temperature Pulse Rate 111 H 118 H Respiratory Rate 18 21 24 Blood Pressure 152/70 H Pulse Oximetry 99 100 10/20/18 16:00 10/20/18 17:00 10/20/18 18:00 Temperature Pulse Rate 119 H 121 H 115 H Respiratory Rate 20 16 20 Blood Pressure 149/86 H 143/66 H 136/66 Pulse Oximetry 100 100 100 10/20/18 20:00 10/20/18 20:02 10/20/18 20:05 Temperature 99.4 F Pulse Rate 113 H 113 H Respiratory Rate 20 20 Blood Pressure 137/104 H 137/104 H Pulse Oximetry 100 100 100 10/20/18 21:57 10/20/18 22:20 10/20/18 23:41 Temperature Pulse Rate 107 H 109 H Respiratory Rate 17 20 18 Blood Pressure 129/61 Pulse Oximetry 100 100 100 10/21/18 00:24 10/21/18 02:09 10/21/18 03:43 Temperature Pulse Rate 110 H 117 H 112 H Respiratory Rate 20 17 Blood Pressure 126/63 Pulse Oximetry 100 99 10/21/18 04:23 10/21/18 04:28 10/21/18 06:12 Temperature 98.9 F Pulse Rate 116 H 114 H 118 H Respiratory Rate 20 Blood Pressure 121/58 L Pulse Oximetry 100 10/21/18 07:53 10/21/18 08:00 Temperature Pulse Rate 116 H 115 H Respiratory Rate 18 Blood Pressure Pulse Oximetry 100 Intake & Output 10/20/18 10/21/18 10/21/18 18:59 06:59 18:59 Intake Total 1936 / 193 725 / 725 Output Total 225 / 225 300 / 300 Balance 1712 / 1712 425 / 425 Weight 58.2 kg Intake: IV 715 / 715 Tube Feeding 722 / 722 375 / 375 Water Bolus Amount 100 / 100 Free Water Amount 500 / 500 250 / 250 Output: Urine Amount (Catheter) 225 / 225 300 / 300 Indwelling Urethral Catheter 225 / 225 300 / 300 Other: Date of Last Bowel Movement 10/18/18 10/20/18 # Incontinent Bowel Movements 2 Result Diagrams: 10/21/18 05:47 10/21/18 05:47 Other Results: Microbiology 10/01/18 16:57 Blood - Peripheral Aerobic Blood Culture - Final No growth in 5 days 10/01/18 16:57 Blood - Peripheral Anaerobic Blood Culture - Final No growth in 5 days 10/01/18 16:50 Blood - Peripheral Aerobic Blood Culture - Final No growth in 5 days 10/01/18 16:50 Blood - Peripheral Anaerobic Blood Culture - Final No growth in 5 days 10/03/18 08:05 Sputum - Endotracheal Gram Stain - Final 10/03/18 08:05 Sputum - Endotracheal Sputum Culture - Final Rare growth normal respiratory michelle 10/01/18 16:10 Stool Cryptosporidium Antigen - Final Negative - No Cryptosporicium antigen detected In selected cases of patients with a history of immunosuppression or foreign travel, a full ova and parasites examination may be desired. Contact the microbiology lab if full workup is indicated and subit another specimen for testing. 10/01/18 16:10 Stool Giardia Antigen (ABELINO) - Final Negative - No Giardia Antigen detected In selected cases of patients with a history of immunosuppression or foreign travel, a full ova and parasites examination may be desired. Contact the microbiology lab if full workup is indicated and subit another specimen for testing. 10/01/18 13:00 Sputum - Endotracheal Gram Stain - Final 10/01/18 13:00 Sputum - Endotracheal Sputum Culture - Final Proteus mirabilis 10/01/18 16:10 Stool Enteric Pathogens (PCR) - Final 10/01/18 16:10 Stool Stool for WBCs - Final 09/28/18 15:30 Clean Catch Urine Urine Culture - Final No growth in 48 hours 09/28/18 16:00 Sputum - Endotracheal Gram Stain - Final 09/28/18 16:00 Sputum - Endotracheal Sputum Culture - Final No growth in 48 hours 09/18/18 18:45 Blood - Peripheral Aerobic Blood Culture - Final No growth in 5 days 09/18/18 18:45 Blood - Peripheral Anaerobic Blood Culture - Final No growth in 5 days 09/18/18 18:55 Blood - Peripheral Aerobic Blood Culture - Final No growth in 5 days 09/18/18 18:55 Blood - Peripheral Anaerobic Blood Culture - Final No growth in 5 days 09/19/18 12:30 Sputum - Endotracheal Gram Stain - Final 09/19/18 12:30 Sputum - Endotracheal Sputum Culture - Final Light growth normal respiratory michelle 09/18/18 18:35 Catheterized Urine Urine Culture - Final Proteus mirabilis Providencia stuartii Imaging: Head CT 09/18/18 18:40 CONCLUSION: 1. Stable appearance of the brain. Marked ventriculomegaly and white matter disease. . Chest X-Ray 09/18/18 18:41 CONCLUSION: 8.6 cm right lower lobe mass is noted suspicious for malignancy until proven otherwise. A mass was described previously in 2017 in the right lower lobe. Chest CTA 09/18/18 19:26 CONCLUSION: 1. There is no evidence for pulmonary embolism. 2. Severe emphysema. 3. There is a large soft tissue mass in the right lower lobe suspicious for malignancy until proven otherwise. Chest X-Ray 09/20/18 00:00 CONCLUSION: Bibasilar consolidations. The left is new from the prior study. Venous Doppler Study 09/21/18 00:00 CONCLUSION: 1. There is occlusive thrombus within the right cephalic and brachial veins. Chest X-Ray 09/22/18 05:00 CONCLUSION: Unchanged bibasilar consolidation particularly on the right. Chest X-Ray 09/27/18 07:40 CONCLUSION: Enlarging right lung base consolidation since 5 days ago. Chest X-Ray 09/29/18 14:08 CONCLUSION: 1. Interval tracheostomy tube placement. 2. Unchanged right lower lobe consolidation and bibasilar interstitial prominence. Venous Doppler Study 10/01/18 00:00 CONCLUSION: 1. Superficial venous thrombosis identified in the right cephalic vein. 2. No evidence of DVT. Abdomen X-Ray 10/02/18 06:48 CONCLUSION: Persistent airspace consolidation involving the right lower lobe. Abdominal bowel gas pattern is normal. Chest X-Ray 10/02/18 06:48 CONCLUSION: There is persistent airspace consolidation involving the right lower lobe. There is improved aeration on the current exam. Abdomen/Pelvis CT 10/03/18 07:26 CONCLUSION: 1. There is air and fluid identified within the stomach which may account for the patient's perceived distention. No evidence of bowel obstruction or ileus. 2. Extensive atherosclerosis. 3. Persistent right lower lobe airspace consolidation. Chest X-Ray 10/07/18 00:00 CONCLUSION: Stable chest x-ray with airspace opacity in the right lower lung zone. Abdomen X-Ray 10/08/18 09:15 CONCLUSION: No acute findings Chest X-Ray 10/10/18 04:00 CONCLUSION: 1. No significant interval change. 2. Stable parenchymal opacity in the right mid to lower lung zones. Abdomen X-Ray 10/15/18 14:53 CONCLUSION: No dilated loops of small or large bowel. PEG tube in place. Chest X-Ray 10/16/18 19:56 CONCLUSION: Stable appearance of mass in right lower lobe. Slight increase in basilar airspace disease since October 10. Venous Doppler Study 10/19/18 00:00 CONCLUSION: 1. Occlusive thrombus in the left cephalic vein. 2. No DVT in the right arm. Objective Remarks: GENERAL: 68-year-old female, well-developed patient female on ventilator via tracheostomy SKIN: Warm and dry. HEAD: Atraumatic. Normocephalic. EYES: Pupils equal and round. No scleral icterus. No injection or drainage. ENT: No nasal bleeding or discharge. Mucous membranes pink and moist. NECK: Tracheostomy in place, slight pink tinge to secretions, no active bleeding. CARDIOVASCULAR: S1S2 normal, No murmurs rubs or gallops. RESPIRATORY: Tracheostomy 8.0 Shiley in situ, currently on CPAP trials B/L equal air entry GASTROINTESTINAL: Abdomen soft, non-tender,distended. PEG tube in place no drainage. MUSCULOSKELETAL: Extremities without clubbing, cyanosis, or edema. s/p L AKA. NEUROLOGICAL: Awakens easily looks around. Blinks and squeezes hand to command. Nods head to yes and no questions Assessment and Plan - Assessment and Plan Plan: NEURO: History of stroke Off sedation. Monitor neuro status Currently on acetaminophen 60 p.o. every 6 hours as needed fever/pain with as needed hydrocodone/acetaminophen for pain RESP: Acute respiratory failure on mechanical ventilation Emphysema Lung mass History of prior trach after stroke, has been subsequently decannulated Per Dr. De Jesus. not wishing to pursue CT-guided biopsy. Continue with vent support Daily CPAP trials. Vent bundle Albuterol/ipratropium aerosols every 6 hours with albuterol aerosols every 2 as needed dyspnea Percutaneous tracheostomy performed at bedside 09/29. Pulm toilet, trach care CV: HTN Monitor BP/heart rate keep MAP>65mmHg. On Cardizem 30mg q6 with hold orders. Wilson 60 mg daily metoprolol tartrate 5 mg twice daily at home Labetalol as needed GI: Clogged PEG tube-resolved PEG in place. On Glucerna 1.5 @ 45ml/hr KUB abdomen 10/02 Normal bowel gas pattern. CT abd/pelvis 10/03: No evidence of bowel obstruction or ileus. GI consultedfor PEG tube malfunction. Fluids PEG tube replacement per GI 10/18 FEN/RENAL: Acute hypernatremia- resolved Hypophosphatemia Monitor renal function, I/O's, electrolytes replacement per protocol. Free water 250ml Q8, 30 mmol potassium phosphate IV x1 now. Recheck in a.m. ID: [id number] UTI Urine culture from 09/18 with providentia and Proteus. BC 10/01: NGTD sputum cx 09/28 and 10/03 : No growth On abx Cefepime and Vanco, d/c Vanco, monitor for signs of infections ( Fever, WBC) C-diff PCR negative on 10/01 HEME: R brachial DVT Left cephalic superficial thrombus Anemia/microcytic Enoxaparin 60 mg subcu every 12 hours. s/p Transfuse 2u PRBC 10/01 ENDO: Diabetes mellitus Insulin sliding scale PROPH: SCD/enoxaparin for DVT prophylaxis. Protonix 40mg Q12 for stress ulcer prophylaxis. 10/01 Doppler US UE b/l: Superficial venous thrombosis identified in the right cephalic vein. No evidence of DVT. 09/21 Doppler US RUE: Occlusive thrombus cephalic and brachial veins ACCESS: PIV x2. Full code Level 3 follow-up Planned transfer to LT[facility] when bed available Code Status: Full code
[2018-10-21] MEDS ORDERED: Potassium Phosphate Inj 30 MMOL in Sodium Chlor 0.9% Inj 250 ML IV.SIG ONE (11:00)
[2018-10-21] MEDS: Pantoprazole Inj 40 MG Vial IV.PUSH SCH ×2 (11:32→23:52)
[2018-10-21] MEDS: Artificial Tears Opth Drops 15 ML Bottle EACH EYE SCH ×2 (11:51→16:40)
[2018-10-21] MEDS: Acetaminophen 325 MG Tablet PO PRN (11:56)
--- NOTE | 2018-10-21 18:54 | P.PNPL ---
Subjective Interval history: 68 YOAA female who was with Hospice svc, now rescended back on Vent off sedation Tolerates TF On CPAP, tachypnoic Physical Exam Vital signs: Vital Signs 10/20/18 20:00 10/20/18 20:02 10/20/18 20:05 Temperature 99.4 F Pulse Rate 113 H 113 H Respiratory Rate 20 20 Blood Pressure 137/104 H 137/104 H Pulse Oximetry 100 100 100 10/20/18 21:57 10/20/18 22:20 10/20/18 23:41 Temperature Pulse Rate 107 H 109 H Respiratory Rate 17 20 18 Blood Pressure 129/61 Pulse Oximetry 100 100 100 10/21/18 00:24 10/21/18 02:09 10/21/18 03:43 Temperature Pulse Rate 110 H 117 H 112 H Respiratory Rate 20 17 Blood Pressure 126/63 Pulse Oximetry 100 99 10/21/18 04:23 10/21/18 04:28 10/21/18 06:12 Temperature 98.9 F Pulse Rate 116 H 114 H 118 H Respiratory Rate 20 Blood Pressure 121/58 L Pulse Oximetry 100 10/21/18 07:53 10/21/18 08:00 10/21/18 10:00 Temperature 99.6 F Pulse Rate 116 H 115 H 114 H Respiratory Rate 18 18 Blood Pressure 134/62 Pulse Oximetry 100 100 10/21/18 11:50 10/21/18 12:00 10/21/18 14:00 Temperature 100.7 F H Pulse Rate 109 H 101 H Respiratory Rate 16 16 Blood Pressure 142/67 H Pulse Oximetry 99 100 10/21/18 14:54 10/21/18 16:00 Temperature 99.6 F Pulse Rate 114 H 107 H Respiratory Rate 14 10 L Blood Pressure 133/63 Pulse Oximetry 92 L Intake & Output 10/20/18 10/21/18 10/21/18 18:59 06:59 18:59 Intake Total 1936 / 1937 725 / 725 250 / 250 Output Total 225 / 225 300 / 300 Balance 1711 / 1712 425 / 425 250 / 250 Weight 58.2 kg Intake: IV 715 / 715 Tube Feeding 722 / 722 375 / 375 Water Bolus Amount 100 / 100 Free Water Amount 500 / 500 250 / 250 250 / 250 Output: Urine Amount (Catheter) 225 / 225 300 / 300 Indwelling Urethral Catheter 225 / 225 300 / 300 Other: Date of Last Bowel Movement 10/18/18 10/20/18 10/21/18 # Incontinent Bowel Movements 2 GENERAL: Elderly AA fenmale on Vent SKIN: Warm and dry. HEAD: Normocephalic. EYES: No scleral icterus. No injection or drainage. NECK: Supple, trachea midline. No JVD or lymphadenopathy. has Trach CARDIOVASCULAR: Regular rate and rhythm without murmurs, gallops, or rubs. RESPIRATORY: Breath sounds equal bilaterally. No accessory muscle use. GASTROINTESTINAL: Abdomen soft, non-tender, nondistended. MUSCULOSKELETAL: No cyanosis, or edema. BACK: Nontender without obvious deformity. No CVA tenderness. - Urinary Catheter Management Indwelling Temp Sensing Catheter Cath placed during this visit: yes, but has since been removed by the nurse Reason for continuing: Severe pressure ulcer/wound Insertion date: 09/18/18 Insertion time: 18:50 Removal date: 09/23/18 Removal time: 16:00 Female External Cath placed during this visit: no Reason for continuing: Severe pressure ulcer/wound Straight Cath placed during this visit: no Indwelling Urethral Catheter Cath placed during this visit: yes, but has since been removed by the nurse Reason for continuing: Severe pressure ulcer/wound Insertion date: 10/21/18 Insertion time: 10:00 Removal date: 10/21/18 Removal time: 09:53 Assessment and Plan - Plan IMPRESSION: VDRF large Rt lung mass COPD HTN H/O CVA PLAN: Cont CPAp as tolerated Rest with Vent Aerosol nebs Cont Abx Trach care. EMMA RN at .
[2018-10-22] MEDS: Artificial Tears Opth Drops 15 ML Bottle EACH EYE SCH ×3 (02:22→17:55)
[2018-10-22] MEDS: dilTIAZem 30 MG Tablet PO SCH ×4 (03:12→22:09)
[2018-10-22] MEDS: Oral Hygiene Kit OROPHARYNG SCH ×3 (03:12→17:54)
[2018-10-22] MEDS: RESP: Lidocaine PF 4% 5 ML Neb NEB PRN ×2 (04:18→12:21)
--- NOTE | 2018-10-22 05:28 | XR ---
EXAM DATE: 10/22/2018 5:24 AM EST AGE/SEX: 68 years / Female INDICATIONS: Cough. CLINICAL DATA: This is the patient's subsequent encounter. Patient reports that signs and symptoms h ave been present for 3 weeks and indicates a pain score of Nonresponsive. MEDICAL/SURGICAL HISTORY: . Diabetes. Hypertension. Acute respiratory failure on mechanical yousif tilation. CVA. Dysphagia. Hemiplegia. Hypoxia. . Amputation above left knee. PEG tube placement. Tra cheostomy. COMPARISON: [facility] [place], CHEST 1V SINGLE AP, 10/16/2018. . FINDINGS: A single AP view of the chest demonstrates no interval change. Persistent masslike consolidation invo lving the right lower lobe. Lungs are hyper aerated. No effusions. Heart is at the upper limits of no rmal in terms of size. Tracheostomy tube noted. CONCLUSION: Unchanged masslike density within the right lower lobe. Electronically signed by: Juan Cedeño MD Board Certified Radiologist 10/22/2018 5:27 AM EST
[2018-10-22 06:28] LABS: Baso % (Auto) 0.5 % (0.0-2.0); Eos # (Auto) 0.2 th/mm3 (0.0-0.4); Eos % (Auto) 3.3 % (0.0-4.0); Hematocrit 27.8 % (35.0-46.0); Hemoglobin 8.7 gm/dL (11.6-15.3); Lymph # (Auto) 1.3 th/mm3 (1.0-4.8); Lymph % (Auto) 16.8 % (9.0-44.0); Mean Corpuscular HGB Conc 31.5 % (32.0-36.0); Mean Corpuscular Hemoglobin 24.9 pg (27.0-34.0); Mono # (Auto) 0.9 th/mm3 (0.0-0.9); Mono % (Auto) 12.3 % (0.0-8.0); Neut % (Auto) 67.1 % (16.0-70.0); Platelet Count 355 th/mm3 (150-450); Red Blood Count 3.51 mil/mm3 (4.00-5.30); Red Cell Distribution Width 20.6 % (11.6-17.2); White Blood Count 7.4 th/mm3 (4.0-11.0)
[2018-10-22 06:58] LABS: Anion Gap 6 meq/L (5-15); Blood Urea Nitrogen 8 mg/dL (7-18); Calcium 8.5 mg/dL (8.5-10.1); Carbon Dioxide 29.2 meq/L (21.0-32.0); Chloride 107 meq/L (98-107); Glomerular Filtration Rate Greater Than 89 mL/min (>89); Glucose,Random 99 mg/dL (74-106); Magnesium 2.2 mg/dL (1.5-2.5); Sodium 142 meq/L (136-145)
[2018-10-22] MEDS: Insulin NovoLIN Regular Correctional Sugar Inj SQ SCH ×3 (06:58→19:22)
[2018-10-22] MEDS: Ascorbic Acid 500 MG Tablet G-TUBE SCH (09:47)
[2018-10-22] MEDS: Senna/Docusate Sodium 8.6/50 MG Tablet PO SCH ×2 (09:47→22:09)
[2018-10-22] MEDS: Chlorhexidine 0.12% Oral Kit 15 ML UDC OROPHARYNG SCH ×2 (09:49→22:08)
[2018-10-22] MEDS: Enoxaparin Inj 60 MG/0.6 ML Syringe SQ SCH ×2 (10:00→22:08)
[2018-10-22] MEDS: Pantoprazole Inj 40 MG Vial IV.PUSH SCH (12:20)
--- NOTE | 2018-10-22 14:52 | P.PNCC ---
Subjective Subjective Remarks/Hospital Course: 09/18: 68-year-old female past medical history of stroke, left BKA, who was on home hospice until just prior to arrival, presents for an evaluation of fever and altered mental status. According to EMS the patient had not required oxygen until beginning of this week when she had gradual increased demand of her oxygen. End-tidal CO2 prior to arrival was 6. Initial room nasal cannula saturation was 91, she was placed on nonrebreather position of comfort and transfer to emergency department. EMS related that the had elected to revoke the patient's DNR and hospice care prior to transferring her to the hospital. The patient apparently is normally a GCS of 14, apparently she does take some thickened food p.o. department the patient was severely altered with GCS of 6 on arrival [id number] and was intubated by ED attending for an airway protection. 09/19: Remains sedated, orally intubated on mechanical ventilation. CT chest showed right lower lobe lung mass suspicious for malignancy. Patient has a PEG tube following previous stroke. 09/20: Remains sedated, orally intubated on mechanical ventilation. Started on tube feeds. 09/21: Remains sedated, orally intubated on mechanical ventilation. Tolerating tube feeds. Right approximately swelling noted. 09/22 Is not tolerating CPAP trial when decrease PS below 18. Daughter at bedside, says will be here later. Says they don't think they want to proceed with lung biopsy at this time, but on the other hand she discusses the possibility of re-do trach. She says they are not sure how to proceed. I suggested we meet together. Daughter states she has been bedridden since stroke about 4 years ago. [facility]. PEG due to dysphagia, does not eat. Speaks a little but daughter states she has declined significantly over the last 2 weeks. 09/23 No significant change. Patient does not tolerate CPAP. Family is very clear that they do not wish to pursue biopsy or diagnosis of suspected lung cancer. At this time, they wish to continue supportive care with vent and FULL CODE. 09/24 No change. Does not tolerate CPAP. Will diurese for positive fluid balance. 09/25 Now on CPAP 20/5 and not tolerating wean. Continue attempts at diuresis to address positive fluid balance since admission 09/26: Remains sedated, orally intubated on mechanical ventilation. Hold CPAP trials yesterday 09/27 Patient is sedated with Diprivan and intubated. Tolerating tube feeds. Afebrile. 09/28 Patient remains intubated and sedated. T;100.8 09/29 Has not made any progress towards weaning. Family offered comfort measures however they expressed desire to proceed with trach 09/30 status post bedside tracheostomy yesterday by Dr. Gavin. Discontinued propofol drip. On CPAP 14/5 for 2 hours today. BP is low, will need to hold metoprolol and titrate back on cardizem (nurses held some doses yesterday too). Positive fluid balance but not able to diurese today due to low BP. Awaiting bed at [facility]. 10/01 Patient remains on ventilator via trach. On no sedation. Hgb 6.7 this morning and T: 100.4 at midnight. Tachycardic. 10/02 Patient is on ventilator via trach. On no sedation. Spiked fever with T: 101.5. s/p transfusion 2u PRBC yesterday. Mcmillan/thick secretions noted per nursing staff. 10/03 Patient had low grade fever with T:100.4 last night. Tube feeds held for abd distention. KUB yesterday showed normal bowel gas pattern. 10/04 Patient is on ventilator via trach. For panendoscopy today. T:99.8 last night. 10/05 Patient is on ventilator via trach, on no drips. s/p panendoscopy yesterday showed chronic gastritis with no source of bleeding identified on upper or lower endoscopy. Afebrile. 10/06 Patient remains on ventilator via trach. T:99.9 yesterday 10/07: Remains on the vent continues to fail CPAP trials due to tachypnea. No nausea vomiting overnight currently resolved. Chest tube had been restarted. Low-grade fever 100.6 10/08: Continues to fail CPAP trials. However on vent support appears comfortable. Daughter at the bedside updated. No fever today 10/09: No acute changes overnight. The patient continues to fail CPAP. Patient tolerating tube feeds. 10/10: Afebrile .patient tolerating CPAP trials this a.m.. False level was noted to be low replacement underway. Bowel movements x2 last night 10/11: Patient continues to tolerate CPAP trials 3-4 hours/day Glucerna tube feeds increased to 45 cc/an hour as recommended by dietitian. 10/12: Patient tolerating CPAP trials only 3-4 hours a day. Patient nodding head yes and no to questions, appears calm and comfortable. Medical status update provided to daughter at bedside. 10/13: Patient was noted to have cuff leak, trach ties then positioned appropriately, with resolution of cuff leak. Patient tolerating tube feeds. Continues on CPAP trials. 10/14: Afebrile. The patient tolerated CPAP trials for approximately 8 hours yesterday. 10/15: Afebrile. Peg tube clogged , multiple attempts to open ,unsuccessful. GI consulted for recommendations. 10/16: Plan for GI for placement of new PEG tube today. IV fluids initiated normal saline at 50 cc an hour. 10/17: GI and to evaluate patient yesterday afternoon NG was placed transfer for placement of PEG tube on Thursday. Today patient removed NG tube to be replaced by ROUGE MILLER and tube feeds to be reinstituted. IV fluids continue awaiting replacement of NG tube. 10/18: No acute changes overnight. The patient underwent PEG tube replacement this afternoon. Tube feeds to be reinitiated. Patient continues to respond by nodding head yes and no to questions. Denies pain. Patient tolerating CPAP trials approximately 3-4 hours a day. 10/19: More secretions noted today more suctioning frequency. Patient tolerating CPAP trials 2.5-3 hours today. Patient tolerating tube feeds. IV fluids discontinued. 10/20: Currently on PSV trial. Tolerating tube feeds at goal. Afebrile. No new issues overnight. 10/21: Excessive coughing overnight. Tube feeds at goal. Afebrile. No new issues. Subjective 10/22: Afebrile. Tolerating tube feeds at goal. Afebrile. No new issues. Cuff leak persists positional tracheostomy. Objective Vital Signs / I&O: Vital Signs 10/21/18 14:54 10/21/18 15:00 10/21/18 16:00 Temperature 99.6 F Pulse Rate 114 H 106 H 107 H Respiratory Rate 14 18 10 L Blood Pressure 142/66 H 133/63 Pulse Oximetry 100 92 L 10/21/18 17:00 10/21/18 18:00 10/21/18 19:00 Temperature 99.0 F Pulse Rate 104 H 105 H 106 H Respiratory Rate 11 L 8 L 37 H Blood Pressure 140/66 128/62 131/63 Pulse Oximetry 100 100 100 10/21/18 19:51 10/21/18 20:00 10/21/18 21:00 Temperature Pulse Rate 108 H 109 H 105 H Respiratory Rate 25 H 50 H 1 L Blood Pressure 145/69 H 120/56 L Pulse Oximetry 100 100 100 10/21/18 22:00 10/21/18 23:00 10/22/18 00:00 Temperature Pulse Rate 111 H 115 H 114 H Respiratory Rate 20 38 H 23 Blood Pressure 145/68 H 133/63 134/66 Pulse Oximetry 100 100 100 10/22/18 01:00 10/22/18 02:00 10/22/18 03:00 Temperature Pulse Rate 111 H 116 H 119 H Respiratory Rate 23 48 H 47 H Blood Pressure 141/69 H 141/65 H 140/69 Pulse Oximetry 100 100 100 10/22/18 04:00 10/22/18 04:19 10/22/18 06:00 Temperature 99.2 F Pulse Rate 117 H 115 H 109 H Respiratory Rate 45 H 20 Blood Pressure 137/69 Pulse Oximetry 100 100 10/22/18 07:56 10/22/18 08:00 10/22/18 10:00 Temperature 99.1 F Pulse Rate 105 H 104 H 117 H Respiratory Rate 16 16 Blood Pressure 122/58 L Pulse Oximetry 100 100 10/22/18 12:00 10/22/18 12:06 10/22/18 12:21 Temperature 99.5 F Pulse Rate 114 H 115 H Respiratory Rate 21 19 11 L Blood Pressure 142/66 H Pulse Oximetry 100 100 Intake & Output 10/21/18 10/22/18 10/22/18 18:59 06:59 18:59 Intake Total 1287 / 1287 1461 / 1461 250 / 250 Output Total 950 / 950 1100 / 1100 Balance 337 / 337 361 / 361 250 / 250 Weight 58.4 kg Intake: IV 260 / 260 Potassium Phosphate Inj 30 MMOL 260 / 260 In NS Inj 250 ML @ 43.333 mls/ hr IV.SIG ONCE ONE Rx#:[id number] Oral 0 / 0 Tube Feeding 537 / 537 451 / 451 Water Bolus Amount 500 / 500 250 / 250 Free Water Amount 250 / 250 500 / 500 250 / 250 Output: Urine Amount (Catheter) 950 / 950 1100 / 1100 Indwelling Urethral Catheter 950 / 950 1100 / 1100 Other: Date of Last Bowel Movement 10/21/18 10/22/18 10/22/18 # Bowel Movements 3 # Incontinent Bowel Movements 2 3 Result Diagrams: 10/22/18 06:08 10/22/18 06:08 Other Results: Microbiology 10/01/18 16:57 Blood - Peripheral Aerobic Blood Culture - Final No growth in 5 days 10/01/18 16:57 Blood - Peripheral Anaerobic Blood Culture - Final No growth in 5 days 10/01/18 16:50 Blood - Peripheral Aerobic Blood Culture - Final No growth in 5 days 10/01/18 16:50 Blood - Peripheral Anaerobic Blood Culture - Final No growth in 5 days 10/03/18 08:05 Sputum - Endotracheal Gram Stain - Final 10/03/18 08:05 Sputum - Endotracheal Sputum Culture - Final Rare growth normal respiratory michelle 10/01/18 16:10 Stool Cryptosporidium Antigen - Final Negative - No Cryptosporicium antigen detected In selected cases of patients with a history of immunosuppression or foreign travel, a full ova and parasites examination may be desired. Contact the microbiology lab if full workup is indicated and subit another specimen for testing. 10/01/18 16:10 Stool Giardia Antigen (ABELINO) - Final Negative - No Giardia Antigen detected In selected cases of patients with a history of immunosuppression or foreign travel, a full ova and parasites examination may be desired. Contact the microbiology lab if full workup is indicated and subit another specimen for testing. 10/01/18 13:00 Sputum - Endotracheal Gram Stain - Final 10/01/18 13:00 Sputum - Endotracheal Sputum Culture - Final Proteus mirabilis 10/01/18 16:10 Stool Enteric Pathogens (PCR) - Final 10/01/18 16:10 Stool Stool for WBCs - Final 09/28/18 15:30 Clean Catch Urine Urine Culture - Final No growth in 48 hours 09/28/18 16:00 Sputum - Endotracheal Gram Stain - Final 09/28/18 16:00 Sputum - Endotracheal Sputum Culture - Final No growth in 48 hours 09/18/18 18:45 Blood - Peripheral Aerobic Blood Culture - Final No growth in 5 days 09/18/18 18:45 Blood - Peripheral Anaerobic Blood Culture - Final No growth in 5 days 09/18/18 18:55 Blood - Peripheral Aerobic Blood Culture - Final No growth in 5 days 09/18/18 18:55 Blood - Peripheral Anaerobic Blood Culture - Final No growth in 5 days 09/19/18 12:30 Sputum - Endotracheal Gram Stain - Final 09/19/18 12:30 Sputum - Endotracheal Sputum Culture - Final Light growth normal respiratory michelle 09/18/18 18:35 Catheterized Urine Urine Culture - Final Proteus mirabilis Providencia stuartii Imaging: Head CT 09/18/18 18:40 CONCLUSION: 1. Stable appearance of the brain. Marked ventriculomegaly and white matter disease. . Chest X-Ray 09/18/18 18:41 CONCLUSION: 8.6 cm right lower lobe mass is noted suspicious for malignancy until proven otherwise. A mass was described previously in 2017 in the right lower lobe. Chest CTA 09/18/18 19:26 CONCLUSION: 1. There is no evidence for pulmonary embolism. 2. Severe emphysema. 3. There is a large soft tissue mass in the right lower lobe suspicious for malignancy until proven otherwise. Chest X-Ray 09/20/18 00:00 CONCLUSION: Bibasilar consolidations. The left is new from the prior study. Venous Doppler Study 09/21/18 00:00 CONCLUSION: 1. There is occlusive thrombus within the right cephalic and brachial veins. Chest X-Ray 09/22/18 05:00 CONCLUSION: Unchanged bibasilar consolidation particularly on the right. Chest X-Ray 09/27/18 07:40 CONCLUSION: Enlarging right lung base consolidation since 5 days ago. Chest X-Ray 09/29/18 14:08 CONCLUSION: 1. Interval tracheostomy tube placement. 2. Unchanged right lower lobe consolidation and bibasilar interstitial prominence. Venous Doppler Study 10/01/18 00:00 CONCLUSION: 1. Superficial venous thrombosis identified in the right cephalic vein. 2. No evidence of DVT. Abdomen X-Ray 10/02/18 06:48 CONCLUSION: Persistent airspace consolidation involving the right lower lobe. Abdominal bowel gas pattern is normal. Chest X-Ray 10/02/18 06:48 CONCLUSION: There is persistent airspace consolidation involving the right lower lobe. There is improved aeration on the current exam. Abdomen/Pelvis CT 10/03/18 07:26 CONCLUSION: 1. There is air and fluid identified within the stomach which may account for the patient's perceived distention. No evidence of bowel obstruction or ileus. 2. Extensive atherosclerosis. 3. Persistent right lower lobe airspace consolidation. Chest X-Ray 10/07/18 00:00 CONCLUSION: Stable chest x-ray with airspace opacity in the right lower lung zone. Abdomen X-Ray 10/08/18 09:15 CONCLUSION: No acute findings Chest X-Ray 10/10/18 04:00 CONCLUSION: 1. No significant interval change. 2. Stable parenchymal opacity in the right mid to lower lung zones. Abdomen X-Ray 10/15/18 14:53 CONCLUSION: No dilated loops of small or large bowel. PEG tube in place. Chest X-Ray 10/16/18 19:56 CONCLUSION: Stable appearance of mass in right lower lobe. Slight increase in basilar airspace disease since October 10. Venous Doppler Study 10/19/18 00:00 CONCLUSION: 1. Occlusive thrombus in the left cephalic vein. 2. No DVT in the right arm. Chest X-Ray 10/22/18 06:00 CONCLUSION: Unchanged masslike density within the right lower lobe. Objective Remarks: GENERAL: 68-year-old female, well-developed patient female on ventilator via tracheostomy SKIN: Warm and dry. HEAD: Atraumatic. Normocephalic. EYES: Pupils equal and round. No scleral icterus. No injection or drainage. ENT: No nasal bleeding or discharge. Mucous membranes pink and moist. NECK: Tracheostomy in place, slight pink tinge to secretions, no active bleeding. CARDIOVASCULAR: S1, S2 normal, No murmurs rubs or gallops. RESPIRATORY: Tracheostomy 8.0 Shiley in situ, currently on CPAP trials B/L equal air entry GASTROINTESTINAL: Abdomen soft, non-tender,distended. PEG tube in place no drainage. MUSCULOSKELETAL: Extremities without clubbing, cyanosis, or edema. s/p L AKA. NEUROLOGICAL: Awakens easily looks around. Blinks and squeezes hand to command. Nods head to yes and no questions Assessment and Plan - Assessment and Plan Plan: NEURO: History of stroke Off sedation. Monitor neuro status Currently on acetaminophen 60 p.o. every 6 hours as needed fever/pain with as needed hydrocodone/acetaminophen for pain RESP: Acute respiratory failure on mechanical ventilation Emphysema Lung mass History of prior trach after stroke, has been subsequently decannulated Per Dr. De Jesus. not wishing to pursue CT-guided biopsy. Continue with vent support Daily CPAP trials. Vent bundle Albuterol/ipratropium aerosols every 6 hours with albuterol aerosols every 2 as needed dyspnea Percutaneous tracheostomy performed at bedside 09/29. Pulm toilet, trach care CV: HTN Monitor BP/heart rate keep MAP>65mmHg. On Cardizem 30mg q6 with hold orders. Wilson 60 mg daily metoprolol tartrate 5 mg twice daily at home Labetalol as needed GI: Clogged PEG tube-resolved PEG in place. On Glucerna 1.5 @ 45ml/hr KUB abdomen 10/02 Normal bowel gas pattern. CT abd/pelvis 10/03: No evidence of bowel obstruction or ileus. GI consultedfor PEG tube malfunction. Fluids PEG tube replacement per GI 10/18 FEN/RENAL: Acute hypernatremia- resolved Hypophosphatemia Monitor renal function, I/O's, electrolytes replacement per protocol. Free water 250ml Q8, 30 mmol potassium phosphate IV x1 now. Recheck in a.m. ID: [id number] UTI Urine culture from 09/18 with providentia and Proteus. BC 10/01: NGTD sputum cx 09/28 and 10/03 : No growth On abx Cefepime and Vanco, d/c Vanco, monitor for signs of infections ( Fever, WBC) C-diff PCR negative on 10/01 HEME: R brachial DVT Left cephalic superficial thrombus Anemia/microcytic Enoxaparin 60 mg subcu every 12 hours. s/p Transfuse 2u PRBC 10/01. Monitor CBC daily as needed. ENDO: Diabetes mellitus Insulin sliding scale PROPH: SCD/enoxaparin for DVT prophylaxis. Protonix 40mg Q12 for stress ulcer prophylaxis. 10/01 Doppler US UE b/l: Superficial venous thrombosis identified in the right cephalic vein. No evidence of DVT. 09/21 Doppler US RUE: Occlusive thrombus cephalic and brachial veins ACCESS: PIV x2. Full code Level 3 follow-up Planned transfer to LTAC when bed available Code Status: Full code
--- NOTE | 2018-10-22 14:54 | P.DIET ---
Nutritional Evaluation Type of nutrition evaluation: follow-up Nutrition consult regarding: Tube Feeding Screening comments: 09/19/18 TF review Objective - Diagnosis Fever, AMS - Objective Part of Body Amputated: Left above knee (12%) [place] body weight: 50 kg (adj IBW 44kg, adjBW: 53.6kg) % IBW: 139 Body Weight Used for Calculations: Actual Energy Needs - Lower Range (kCal/kg): 28 Energy Needs - Upper Range (kCal/kg): 33 Lower Limit kCal/kg (kCals): 1,501 Upper Limit kCal/kg (kCals): 1,769 Lower Limit Protein Factor (Grams per Kg): 1.2 Upper Limit Protein Factor (Grams per Kg): 1.5 Lower Protein Needs (Protein): 64 Upper Protein Needs (Protein): 80 Dietitian Reviewed in Medical Record: Curent medications, Intake & Output, Labs , Medical history, Tube feeding Diet Order: NPO Objective Comments: PMH: stroke, DM, Dysphagia, HTN, Hemiparesis, L AKA, PEG placement Labs include: POC glucose 125 124 109 Meds include: vitamin C LBM 10/22/18 Pt's nutritional needs based on AdjBW of 53.6kg r/t L AKA Assessment Assessment: Pt remains at nutritional risk r/t need for a TF for nutrition support. Pt continues to be intubated, off sedation now, on mech vent via trach, receiving CPAP trials daily. Current TF order via NGT is Glucerna 1.5 running at 45ml/ hour. Will continue with previous recommendations of Glucerna 1.5 with goal rate of 45ml/hr to provide 1620kcals, 89gms protein and 820mls free water plus Berny 1-pkt BID to promote wound healing. Spoke w/ CHER Boucher to advance TF as tolerated and to add Berny BID via PEG. Labs and medications reviewed. Will continue to monitor tolerance to TF, wound healing and clinical course. Brought forward: Noted pt was on hospice with a DNR which removed upon admission. PEG tube clogged 10/15 with nursing unable to remove clog. NGT now placed for TF and pt pending PEG replacement 10/18. Recommendations: 1. RD continue to recommend increasing TF Glucerna 1.5 @ 45mL/hr as tolerated 2. RD to recommend Berny 1-pkt BID to promote wound healing 3. Continue to monitor TF tolerance, clinical course Dietitian to Monitor: Lab values, Glucose level, Intake & Output, Tube feeding tolerance, Weight change, Wound/skin status, Medical course
--- NOTE | 2018-10-22 18:34 | P.PNPL ---
Subjective Interval history: 68 YOAA female who was with Hospice svc, now rescended back on Vent off sedation Tolerates TF No Fever Physical Exam Vital signs: Vital Signs 10/21/18 19:00 10/21/18 19:51 10/21/18 20:00 Temperature 99.0 F Pulse Rate 106 H 108 H 109 H Respiratory Rate 37 H 25 H 50 H Blood Pressure 131/63 145/69 H Pulse Oximetry 100 100 100 10/21/18 21:00 10/21/18 22:00 10/21/18 23:00 Temperature Pulse Rate 105 H 111 H 115 H Respiratory Rate 1 L 20 38 H Blood Pressure 120/56 L 145/68 H 133/63 Pulse Oximetry 100 100 100 10/22/18 00:00 10/22/18 01:00 10/22/18 02:00 Temperature Pulse Rate 114 H 111 H 116 H Respiratory Rate 23 23 48 H Blood Pressure 134/66 141/69 H 141/65 H Pulse Oximetry 100 100 100 10/22/18 03:00 10/22/18 04:00 10/22/18 04:19 Temperature 99.2 F Pulse Rate 119 H 117 H 115 H Respiratory Rate 47 H 45 H 20 Blood Pressure 140/69 137/69 Pulse Oximetry 100 100 100 10/22/18 06:00 10/22/18 07:56 10/22/18 08:00 Temperature 99.1 F Pulse Rate 109 H 105 H 104 H Respiratory Rate 16 16 Blood Pressure 122/58 L Pulse Oximetry 100 100 10/22/18 10:00 10/22/18 12:00 10/22/18 12:06 Temperature 99.5 F Pulse Rate 117 H 114 H Respiratory Rate 21 19 Blood Pressure 142/66 H Pulse Oximetry 100 100 10/22/18 12:21 10/22/18 14:00 10/22/18 16:00 Temperature Pulse Rate 115 H 115 H 109 H Respiratory Rate 11 L Blood Pressure Pulse Oximetry 10/22/18 16:26 10/22/18 18:00 Temperature Pulse Rate 115 H 116 H Respiratory Rate 20 Blood Pressure Pulse Oximetry Intake & Output 10/21/18 10/22/18 10/22/18 18:59 06:59 18:59 Intake Total 1287 / 1287 1461 / 1461 500 / 500 Output Total 950 / 950 1100 / 1100 Balance 337 / 337 361 / 361 500 / 500 Weight 58.4 kg Intake: IV 260 / 260 Potassium Phosphate Inj 30 MMOL 260 / 260 In NS Inj 250 ML @ 43.333 mls/ hr IV.SIG ONCE ONE Rx#:[id number] Oral 0 / 0 Tube Feeding 537 / 537 451 / 451 Water Bolus Amount 500 / 500 250 / 250 Free Water Amount 250 / 250 500 / 500 500 / 500 Output: Urine Amount (Catheter) 950 / 950 1100 / 1100 Indwelling Urethral Catheter 950 / 950 1100 / 1100 Other: Date of Last Bowel Movement 10/21/18 10/22/18 10/22/18 # Bowel Movements 3 # Incontinent Bowel Movements 2 3 GENERAL: [place] female, on Vent SKIN: Warm and dry. HEAD: Normocephalic. EYES: No scleral icterus. No injection or drainage. NECK: Supple, trachea midline. No JVD or lymphadenopathy. trach site clean CARDIOVASCULAR: Regular rate and rhythm without murmurs, gallops, or rubs. RESPIRATORY: Breath sounds equal bilaterally. No accessory muscle use. GASTROINTESTINAL: Abdomen soft, non-tender, nondistended. MUSCULOSKELETAL: No cyanosis, or edema. has AKA BACK: Nontender without obvious deformity. No CVA tenderness. - Urinary Catheter Management Indwelling Temp Sensing Catheter Cath placed during this visit: yes, but has since been removed by the nurse Reason for continuing: Severe pressure ulcer/wound Insertion date: 09/18/18 Insertion time: 18:50 Removal date: 09/23/18 Removal time: 16:00 Female External Cath placed during this visit: no Reason for continuing: Severe pressure ulcer/wound Straight Cath placed during this visit: no Indwelling Urethral Catheter Cath placed during this visit: yes, but has since been removed by the nurse Reason for continuing: Severe pressure ulcer/wound Insertion date: 10/21/18 Insertion time: 10:00 Removal date: 10/21/18 Removal time: 09:53 Assessment and Plan - Plan IMPRESSION: VDRF large Rt lung mass COPD HTN H/O CVA PLAN: Cont vent support. Aerosol nebs Cont Abx Trach care. EMMA RN at .
[2018-10-23] MEDS: Insulin NovoLIN Regular Correctional Sugar Inj SQ SCH ×4 (02:14→18:00)
[2018-10-23] MEDS: RESP: Lidocaine PF 4% 5 ML Neb NEB PRN ×2 (02:18→07:39)
[2018-10-23] MEDS: Pantoprazole Inj 40 MG Vial IV.PUSH SCH ×2 (04:01→12:34)
[2018-10-23] MEDS: Artificial Tears Opth Drops 15 ML Bottle EACH EYE SCH ×3 (04:01→17:28)
[2018-10-23] MEDS: Oral Hygiene Kit OROPHARYNG SCH ×3 (04:01→17:28)
[2018-10-23] MEDS: dilTIAZem 30 MG Tablet PO SCH ×4 (04:02→21:29)
[2018-10-23 06:07] LABS: Baso % (Auto) 0.5 % (0.0-2.0); Eos # (Auto) 0.3 th/mm3 (0.0-0.4); Hematocrit 29.1 % (35.0-46.0); Lymph # (Auto) 1.2 th/mm3 (1.0-4.8); Mean Platelet Volume 9.2 fL (7.0-11.0); Mono # (Auto) 0.9 th/mm3 (0.0-0.9); Mono % (Auto) 12.7 % (0.0-8.0); Neut # (Auto) 4.4 th/mm3 (1.8-7.7); Neut % (Auto) 64.8 % (16.0-70.0); Platelet Count 366 th/mm3 (150-450); Red Blood Count 3.73 mil/mm3 (4.00-5.30); Red Cell Distribution Width 20.9 % (11.6-17.2); White Blood Count 6.8 th/mm3 (4.0-11.0)
[2018-10-23 06:09] LABS: Mean Corpuscular HGB Conc 30.8 % (32.0-36.0)
[2018-10-23 06:30] LABS: Anion Gap 7 meq/L (5-15); Blood Urea Nitrogen 11 mg/dL (7-18); Calcium 8.6 mg/dL (8.5-10.1); Carbon Dioxide 28.5 meq/L (21.0-32.0); Chloride 108 meq/L (98-107); Glomerular Filtration Rate Greater Than 89 mL/min (>89); Glucose,Random 101 mg/dL (74-106); Potassium 4.3 meq/L (3.5-5.1); Sodium 143 meq/L (136-145)
[2018-10-23 07:14] LABS: Ovalocytes 1+
[2018-10-23 07:16] LABS: Platelet Estimate Normal (Normal)
[2018-10-23] MEDS: Acetaminophen 325 MG Tablet PO PRN (09:23)
[2018-10-23] MEDS: Ascorbic Acid 500 MG Tablet G-TUBE SCH (09:24)
[2018-10-23] MEDS: Enoxaparin Inj 60 MG/0.6 ML Syringe SQ SCH (09:24)
[2018-10-23] MEDS: Chlorhexidine 0.12% Oral Kit 15 ML UDC OROPHARYNG SCH ×2 (09:25→20:21)
[2018-10-23] MEDS: Senna/Docusate Sodium 8.6/50 MG Tablet PO SCH ×2 (09:27→20:21)
--- NOTE | 2018-10-23 09:31 | P.PNCC ---
Subjective Subjective Remarks/Hospital Course: 09/18: 68-year-old female past medical history of stroke, left BKA, who was on home hospice until just prior to arrival, presents for an evaluation of fever and altered mental status. According to EMS the patient had not required oxygen until beginning of this week when she had gradual increased demand of her oxygen. End-tidal CO2 prior to arrival was 6. Initial room nasal cannula saturation was 91, she was placed on nonrebreather position of comfort and transfer to emergency department. EMS related that the had elected to revoke the patient's DNR and hospice care prior to transferring her to the hospital. The patient apparently is normally a GCS of 14, apparently she does take some thickened food p.o. department the patient was severely altered with GCS of 6 on arrival [id number] and was intubated by ED attending for an airway protection. 09/19: Remains sedated, orally intubated on mechanical ventilation. CT chest showed right lower lobe lung mass suspicious for malignancy. Patient has a PEG tube following previous stroke. 09/20: Remains sedated, orally intubated on mechanical ventilation. Started on tube feeds. 09/21: Remains sedated, orally intubated on mechanical ventilation. Tolerating tube feeds. Right approximately swelling noted. 09/22 Is not tolerating CPAP trial when decrease PS below 18. Daughter at bedside, says will be here later. Says they don't think they want to proceed with lung biopsy at this time, but on the other hand she discusses the possibility of re-do trach. She says they are not sure how to proceed. I suggested we meet together. Daughter states she has been bedridden since stroke about 4 years ago. Has been in [facility]. PEG due to dysphagia, does not eat. Speaks a little but daughter states she has declined significantly over the last 2 weeks. 09/23 No significant change. Patient does not tolerate CPAP. Family is very clear that they do not wish to pursue biopsy or diagnosis of suspected lung cancer. At this time, they wish to continue supportive care with vent and FULL CODE. 09/24 No change. Does not tolerate CPAP. Will diurese for positive fluid balance. 09/25 Now on CPAP 20/5 and not tolerating wean. Continue attempts at diuresis to address positive fluid balance since admission 09/26: Remains sedated, orally intubated on mechanical ventilation. Hold CPAP trials yesterday 09/27 Patient is sedated with Diprivan and intubated. Tolerating tube feeds. Afebrile. 09/28 Patient remains intubated and sedated. T;100.8 09/29 Has not made any progress towards weaning. Family offered comfort measures however they expressed desire to proceed with trach 09/30 status post bedside tracheostomy yesterday by Dr. Gavin. Discontinued propofol drip. On CPAP 14/5 for 2 hours today. BP is low, will need to hold metoprolol and titrate back on cardizem (nurses held some doses yesterday too). Positive fluid balance but not able to diurese today due to low BP. Awaiting bed at [facility]. 10/01 Patient remains on ventilator via trach. On no sedation. Hgb 6.7 this morning and T: 100.4 at midnight. Tachycardic. 10/02 Patient is on ventilator via trach. On no sedation. Spiked fever with T: 101.5. s/p transfusion 2u PRBC yesterday. Mcmillan/thick secretions noted per nursing staff. 10/03 Patient had low grade fever with T:100.4 last night. Tube feeds held for abd distention. KUB yesterday showed normal bowel gas pattern. 10/04 Patient is on ventilator via trach. For panendoscopy today. T:99.8 last night. 10/05 Patient is on ventilator via trach, on no drips. s/p panendoscopy yesterday showed chronic gastritis with no source of bleeding identified on upper or lower endoscopy. Afebrile. 10/06 Patient remains on ventilator via trach. T:99.9 yesterday 10/07: Remains on the vent continues to fail CPAP trials due to tachypnea. No nausea vomiting overnight currently resolved. Chest tube had been restarted. Low-grade fever 100.6 10/08: Continues to fail CPAP trials. However on vent support appears comfortable. Daughter at the bedside updated. No fever today 10/09: No acute changes overnight. The patient continues to fail CPAP. Patient tolerating tube feeds. 10/10: Afebrile .patient tolerating CPAP trials this a.m.. False level was noted to be low replacement underway. Bowel movements x2 last night 10/11: Patient continues to tolerate CPAP trials 3-4 hours/day Glucerna tube feeds increased to 45 cc/an hour as recommended by dietitian. 10/12: Patient tolerating CPAP trials only 3-4 hours a day. Patient nodding head yes and no to questions, appears calm and comfortable. Medical status update provided to daughter at bedside. 10/13: Patient was noted to have cuff leak, trach ties then positioned appropriately, with resolution of cuff leak. Patient tolerating tube feeds. Continues on CPAP trials. 10/14: Afebrile. The patient tolerated CPAP trials for approximately 8 hours yesterday. 10/15: Afebrile. Peg tube clogged , multiple attempts to open ,unsuccessful. GI consulted for recommendations. 10/16: Plan for GI for placement of new PEG tube today. IV fluids initiated normal saline at 50 cc an hour. 10/17: GI and to evaluate patient yesterday afternoon NG was placed transfer for placement of PEG tube on Thursday. Today patient removed NG tube to be replaced by BARNWORKER GROOM and tube feeds to be reinstituted. IV fluids continue awaiting replacement of NG tube. 10/18: No acute changes overnight. The patient underwent PEG tube replacement this afternoon. Tube feeds to be reinitiated. Patient continues to respond by nodding head yes and no to questions. Denies pain. Patient tolerating CPAP trials approximately 3-4 hours a day. 10/19: More secretions noted today more suctioning frequency. Patient tolerating CPAP trials 2.5-3 hours today. Patient tolerating tube feeds. IV fluids discontinued. 10/20: Currently on PSV trial. Tolerating tube feeds at goal. Afebrile. No new issues overnight. 10/21: Excessive coughing overnight. Tube feeds at goal. Afebrile. No new issues. 10/22: Afebrile. Tolerating tube feeds at goal. Afebrile. No new issues. Cuff leak persists positional tracheostomy. Subjective 10/23: Afebrile. Tube feeds at goal. Currently on CPAP trial. No new issues. Objective Vital Signs / I&O: Vital Signs 10/22/18 10:00 10/22/18 11:00 10/22/18 12:00 Temperature 99.5 F Pulse Rate 117 H 114 H 114 H Respiratory Rate 27 H 20 21 Blood Pressure 112/67 137/63 142/66 H Pulse Oximetry 100 100 100 10/22/18 12:06 10/22/18 12:21 10/22/18 13:00 Temperature Pulse Rate 115 H 110 H Respiratory Rate 19 11 L 7 L Blood Pressure 128/58 L Pulse Oximetry 100 100 10/22/18 14:00 10/22/18 15:00 10/22/18 15:01 Temperature Pulse Rate 115 H 116 H 119 H Respiratory Rate 18 21 25 H Blood Pressure 134/91 H 113/53 L Pulse Oximetry 100 100 100 10/22/18 16:00 10/22/18 16:26 10/22/18 17:00 Temperature 99.8 F H Pulse Rate 109 H 115 H 114 H Respiratory Rate 16 20 16 Blood Pressure 143/64 H 131/60 Pulse Oximetry 100 100 10/22/18 18:00 10/22/18 19:00 10/22/18 20:00 Temperature Pulse Rate 116 H 111 H 96 H Respiratory Rate 16 18 19 Blood Pressure 140/65 136/64 111/57 L Pulse Oximetry 100 100 100 10/22/18 20:10 10/22/18 21:00 10/22/18 22:00 Temperature Pulse Rate 99 H 98 H 106 H Respiratory Rate 18 18 23 Blood Pressure 115/56 L 133/62 Pulse Oximetry 100 100 100 10/22/18 23:00 10/22/18 23:24 10/23/18 00:00 Temperature Pulse Rate 101 H 100 H Respiratory Rate 16 20 16 Blood Pressure 116/56 L 111/58 L Pulse Oximetry 100 100 100 10/23/18 01:00 10/23/18 02:00 10/23/18 02:19 Temperature Pulse Rate 93 H 108 H 111 H Respiratory Rate 16 33 H 22 Blood Pressure 108/58 L 151/69 H Pulse Oximetry 100 100 10/23/18 03:00 10/23/18 04:00 10/23/18 04:34 Temperature Pulse Rate 110 H 109 H Respiratory Rate 10 L 14 20 Blood Pressure 118/59 L 124/64 Pulse Oximetry 100 100 100 10/23/18 04:35 10/23/18 05:00 10/23/18 06:00 Temperature Pulse Rate 109 H 111 H 102 H Respiratory Rate 20 50 H Blood Pressure 129/63 Pulse Oximetry 100 10/23/18 07:40 Temperature Pulse Rate 108 H Respiratory Rate 14 Blood Pressure Pulse Oximetry 100 Intake & Output 10/22/18 10/23/18 10/23/18 18:59 06:59 18:59 Intake Total 1459 / 1459 1100 / 1100 250 / 250 Output Total 800 / 800 400 / 400 Balance 659 / 659 700 / 700 250 / 250 Weight 57.6 kg Intake: Tube Feeding 559 / 559 600 / 600 Water Bolus Amount 400 / 400 250 / 250 Free Water Amount 500 / 500 250 / 250 250 / 250 Output: Stool 0 / 0 Urine/Stool Mix 0 / 0 Urine Amount (Catheter) 800 / 800 400 / 400 Indwelling Urethral Catheter 800 / 800 400 / 400 Other: Date of Last Bowel Movement 10/22/18 10/22/18 # Bowel Movements 0 # Incontinent Bowel Movements 0 Result Diagrams: 10/23/18 05:17 10/23/18 05:17 Other Results: Microbiology 10/01/18 16:57 Blood - Peripheral Aerobic Blood Culture - Final No growth in 5 days 10/01/18 16:57 Blood - Peripheral Anaerobic Blood Culture - Final No growth in 5 days 10/01/18 16:50 Blood - Peripheral Aerobic Blood Culture - Final No growth in 5 days 10/01/18 16:50 Blood - Peripheral Anaerobic Blood Culture - Final No growth in 5 days 10/03/18 08:05 Sputum - Endotracheal Gram Stain - Final 10/03/18 08:05 Sputum - Endotracheal Sputum Culture - Final Rare growth normal respiratory imchelle 10/01/18 16:10 Stool Cryptosporidium Antigen - Final Negative - No Cryptosporicium antigen detected In selected cases of patients with a history of immunosuppression or foreign travel, a full ova and parasites examination may be desired. Contact the microbiology lab if full workup is indicated and subit another specimen for testing. 10/01/18 16:10 Stool Giardia Antigen (ABELINO) - Final Negative - No Giardia Antigen detected In selected cases of patients with a history of immunosuppression or foreign travel, a full ova and parasites examination may be desired. Contact the microbiology lab if full workup is indicated and subit another specimen for testing. 10/01/18 13:00 Sputum - Endotracheal Gram Stain - Final 10/01/18 13:00 Sputum - Endotracheal Sputum Culture - Final Proteus mirabilis 10/01/18 16:10 Stool Enteric Pathogens (PCR) - Final 10/01/18 16:10 Stool Stool for WBCs - Final 09/28/18 15:30 Clean Catch Urine Urine Culture - Final No growth in 48 hours 09/28/18 16:00 Sputum - Endotracheal Gram Stain - Final 09/28/18 16:00 Sputum - Endotracheal Sputum Culture - Final No growth in 48 hours 09/18/18 18:45 Blood - Peripheral Aerobic Blood Culture - Final No growth in 5 days 09/18/18 18:45 Blood - Peripheral Anaerobic Blood Culture - Final No growth in 5 days 09/18/18 18:55 Blood - Peripheral Aerobic Blood Culture - Final No growth in 5 days 09/18/18 18:55 Blood - Peripheral Anaerobic Blood Culture - Final No growth in 5 days 09/19/18 12:30 Sputum - Endotracheal Gram Stain - Final 09/19/18 12:30 Sputum - Endotracheal Sputum Culture - Final Light growth normal respiratory michelle 09/18/18 18:35 Catheterized Urine Urine Culture - Final Proteus mirabilis Providencia stuartii Imaging: Head CT 09/18/18 18:40 CONCLUSION: 1. Stable appearance of the brain. Marked ventriculomegaly and white matter disease. . Chest X-Ray 09/18/18 18:41 CONCLUSION: 8.6 cm right lower lobe mass is noted suspicious for malignancy until proven otherwise. A mass was described previously in 2017 in the right lower lobe. Chest CTA 09/18/18 19:26 CONCLUSION: 1. There is no evidence for pulmonary embolism. 2. Severe emphysema. 3. There is a large soft tissue mass in the right lower lobe suspicious for malignancy until proven otherwise. Chest X-Ray 09/20/18 00:00 CONCLUSION: Bibasilar consolidations. The left is new from the prior study. Venous Doppler Study 09/21/18 00:00 CONCLUSION: 1. There is occlusive thrombus within the right cephalic and brachial veins. Chest X-Ray 09/22/18 05:00 CONCLUSION: Unchanged bibasilar consolidation particularly on the right. Chest X-Ray 09/27/18 07:40 CONCLUSION: Enlarging right lung base consolidation since 5 days ago. Chest X-Ray 09/29/18 14:08 CONCLUSION: 1. Interval tracheostomy tube placement. 2. Unchanged right lower lobe consolidation and bibasilar interstitial prominence. Venous Doppler Study 10/01/18 00:00 CONCLUSION: 1. Superficial venous thrombosis identified in the right cephalic vein. 2. No evidence of DVT. Abdomen X-Ray 10/02/18 06:48 CONCLUSION: Persistent airspace consolidation involving the right lower lobe. Abdominal bowel gas pattern is normal. Chest X-Ray 10/02/18 06:48 CONCLUSION: There is persistent airspace consolidation involving the right lower lobe. There is improved aeration on the current exam. Abdomen/Pelvis CT 10/03/18 07:26 CONCLUSION: 1. There is air and fluid identified within the stomach which may account for the patient's perceived distention. No evidence of bowel obstruction or ileus. 2. Extensive atherosclerosis. 3. Persistent right lower lobe airspace consolidation. Chest X-Ray 10/07/18 00:00 CONCLUSION: Stable chest x-ray with airspace opacity in the right lower lung zone. Abdomen X-Ray 10/08/18 09:15 CONCLUSION: No acute findings Chest X-Ray 10/10/18 04:00 CONCLUSION: 1. No significant interval change. 2. Stable parenchymal opacity in the right mid to lower lung zones. Abdomen X-Ray 10/15/18 14:53 CONCLUSION: No dilated loops of small or large bowel. PEG tube in place. Chest X-Ray 10/16/18 19:56 CONCLUSION: Stable appearance of mass in right lower lobe. Slight increase in basilar airspace disease since October 10. Venous Doppler Study 10/19/18 00:00 CONCLUSION: 1. Occlusive thrombus in the left cephalic vein. 2. No DVT in the right arm. Chest X-Ray 10/22/18 06:00 CONCLUSION: Unchanged masslike density within the right lower lobe. Objective Remarks: GENERAL: 68-year-old female, well-developed patient female on ventilator via tracheostomy in no acute distress SKIN: Warm and dry. HEAD: Atraumatic. Normocephalic. EYES: Pupils equal and round. No scleral icterus. No injection or drainage. ENT: No nasal bleeding or discharge. Mucous membranes pink and moist. NECK: Tracheostomy in place, slight pink tinge to secretions, no active bleeding. CARDIOVASCULAR: S1, S2 normal, No murmurs rubs or gallops. RESPIRATORY: Tracheostomy 8.0 Shiley in situ, currently on CPAP trials B/L equal air entry GASTROINTESTINAL: Abdomen soft, non-tender,distended. PEG tube in place no drainage. MUSCULOSKELETAL: Extremities without clubbing, cyanosis, or edema. s/p L AKA. NEUROLOGICAL: Awakens easily looks around. Blinks and squeezes hand to command. Nods head to yes and no questions Assessment and Plan - Assessment and Plan Plan: NEURO: History of stroke Off sedation. Monitor neuro status Currently on acetaminophen 60 p.o. every 6 hours as needed fever/pain with as needed hydrocodone/acetaminophen for pain RESP: Acute respiratory failure on mechanical ventilation Emphysema Lung mass History of prior trach after stroke, has been subsequently decannulated Per Dr. De Jesus. not wishing to pursue CT-guided biopsy. Continue with vent support Daily CPAP trials. Vent bundle Albuterol/ipratropium aerosols every 6 hours with albuterol aerosols every 2 as needed dyspnea Percutaneous tracheostomy performed at bedside 09/29. Pulm toilet, trach care CV: HTN Monitor BP/heart rate keep MAP>65mmHg. On Cardizem 30mg q6 with hold orders. Wilson 60 mg daily metoprolol tartrate 5 mg twice daily at home Labetalol as needed GI: Clogged PEG tube-resolved PEG in place. On Glucerna 1.5 @ 45ml/hr KUB abdomen 10/02 Normal bowel gas pattern. CT abd/pelvis 10/03: No evidence of bowel obstruction or ileus. GI consultedfor PEG tube malfunction. Fluids PEG tube replacement per GI 10/18 FEN/RENAL: Monitor renal function, I/O's, electrolytes replacement per protocol. Free water 250ml Q8, ID: HCAP UTI Urine culture from 09/18 with providentia and Proteus. BC 10/01: NGTD sputum cx 09/28 and 10/03 : No growth Repleted therapies with cefepime and Vanco, monitor for signs of infections ( Fever, WBC) C-diff PCR negative on 10/01 HEME: R brachial DVT Left cephalic superficial thrombus Anemia/microcytic Enoxaparin 60 mg subcu every 12 hours. s/p Transfuse 2u PRBC 10/01. Monitor CBC daily as needed. ENDO: Diabetes mellitus Insulin sliding scale PROPH: SCD/enoxaparin for DVT prophylaxis. Protonix 40mg Q12 for stress ulcer prophylaxis. 10/01 Doppler US UE b/l: Superficial venous thrombosis identified in the right cephalic vein. No evidence of DVT. 09/21 Doppler US RUE: Occlusive thrombus cephalic and brachial veins ACCESS: PIV x2. Full code Level 3 follow-up Planned transfer to LTAC when bed available
[2018-10-24] MEDS: Insulin NovoLIN Regular Correctional Sugar Inj SQ SCH ×4 (00:05→18:00)
[2018-10-24] MEDS: Oral Hygiene Kit OROPHARYNG SCH ×4 (00:05→17:32)
[2018-10-24] MEDS: Pantoprazole Inj 40 MG Vial IV.PUSH SCH ×2 (00:05→11:13)
[2018-10-24] MEDS: Artificial Tears Opth Drops 15 ML Bottle EACH EYE SCH ×3 (00:06→17:32)
[2018-10-24] MEDS: RESP: Lidocaine PF 4% 5 ML Neb NEB PRN ×2 (01:16→14:21)
[2018-10-24] MEDS: dilTIAZem 30 MG Tablet PO SCH ×4 (03:37→21:08)
[2018-10-24 06:38] LABS: Baso % (Auto) 0.6 % (0.0-2.0); Eos # (Auto) 0.3 th/mm3 (0.0-0.4); Hematocrit 29.5 % (35.0-46.0); Hemoglobin 9.2 gm/dL (11.6-15.3); Lymph # (Auto) 0.9 th/mm3 (1.0-4.8); Lymph % (Auto) 14.8 % (9.0-44.0); Mean Corpuscular Hemoglobin 24.4 pg (27.0-34.0); Mean Corpuscular Volume 78.7 fL (80.0-100.0); Mean Platelet Volume 8.9 fL (7.0-11.0); Mono # (Auto) 0.9 th/mm3 (0.0-0.9); Mono % (Auto) 13.8 % (0.0-8.0); Neut # (Auto) 4.2 th/mm3 (1.8-7.7); Neut % (Auto) 66.8 % (16.0-70.0); Platelet Count 372 th/mm3 (150-450); Red Blood Count 3.75 mil/mm3 (4.00-5.30); White Blood Count 6.3 th/mm3 (4.0-11.0)
[2018-10-24 06:59] LABS: Anion Gap 6 meq/L (5-15); Blood Urea Nitrogen 11 mg/dL (7-18); Calcium 8.5 mg/dL (8.5-10.1); Carbon Dioxide 28.4 meq/L (21.0-32.0); Chloride 106 meq/L (98-107); Glomerular Filtration Rate Greater Than 89 mL/min (>89); Glucose,Random 117 mg/dL (74-106); Potassium 4.4 meq/L (3.5-5.1); Sodium 140 meq/L (136-145)
[2018-10-24] MEDS: Ascorbic Acid 500 MG Tablet G-TUBE SCH (08:56)
[2018-10-24] MEDS: Senna/Docusate Sodium 8.6/50 MG Tablet PO SCH ×2 (08:56→21:08)
[2018-10-24] MEDS: Chlorhexidine 0.12% Oral Kit 15 ML UDC OROPHARYNG SCH ×2 (08:57→21:07)
--- NOTE | 2018-10-24 11:46 | P.PNCC ---
Subjective Subjective Remarks/Hospital Course: 09/18: 68-year-old female past medical history of stroke, left BKA, who was on home hospice until just prior to arrival, presents for an evaluation of fever and altered mental status. According to EMS the patient had not required oxygen until beginning of this week when she had gradual increased demand of her oxygen. End-tidal CO2 prior to arrival was 6. Initial room nasal cannula saturation was 91, she was placed on nonrebreather position of comfort and transfer to emergency department. EMS related that the had elected to revoke the patient's DNR and hospice care prior to transferring her to the hospital. The patient apparently is normally a GCS of 14, apparently she does take some thickened food p.o. department the patient was severely altered with GCS of 6 on arrival [id number] and was intubated by ED attending for an airway protection. 09/19: Remains sedated, orally intubated on mechanical ventilation. CT chest showed right lower lobe lung mass suspicious for malignancy. Patient has a PEG tube following previous stroke. 09/20: Remains sedated, orally intubated on mechanical ventilation. Started on tube feeds. 09/21: Remains sedated, orally intubated on mechanical ventilation. Tolerating tube feeds. Right approximately swelling noted. 09/22 Is not tolerating CPAP trial when decrease PS below 18. Daughter at bedside, says will be here later. Says they don't think they want to proceed with lung biopsy at this time, but on the other hand she discusses the possibility of re-do trach. She says they are not sure how to proceed. I suggested we meet together. Daughter states she has been bedridden since stroke about 4 years ago. Has been in fdc. PEG due to dysphagia, does not eat. Speaks a little but daughter states she has declined significantly over the last 2 weeks. 09/23 No significant change. Patient does not tolerate CPAP. Family is very clear that they do not wish to pursue biopsy or diagnosis of suspected lung cancer. At this time, they wish to continue supportive care with vent and FULL CODE. 09/24 No change. Does not tolerate CPAP. Will diurese for positive fluid balance. 09/25 Now on CPAP 20/5 and not tolerating wean. Continue attempts at diuresis to address positive fluid balance since admission 09/26: Remains sedated, orally intubated on mechanical ventilation. Hold CPAP trials yesterday 09/27 Patient is sedated with Diprivan and intubated. Tolerating tube feeds. Afebrile. 09/28 Patient remains intubated and sedated. T;100.8 09/29 Has not made any progress towards weaning. Family offered comfort measures however they expressed desire to proceed with trach 09/30 status post bedside tracheostomy yesterday by Dr. Gavin. Discontinued propofol drip. On CPAP 14/5 for 2 hours today. BP is low, will need to hold metoprolol and titrate back on cardizem (nurses held some doses yesterday too). Positive fluid balance but not able to diurese today due to low BP. Awaiting bed at [facility]. 10/01 Patient remains on ventilator via trach. On no sedation. Hgb 6.7 this morning and T: 100.4 at midnight. Tachycardic. 10/02 Patient is on ventilator via trach. On no sedation. Spiked fever with T: 101.5. s/p transfusion 2u PRBC yesterday. Mcmillan/thick secretions noted per nursing staff. 10/03 Patient had low grade fever with T:100.4 last night. Tube feeds held for abd distention. KUB yesterday showed normal bowel gas pattern. 10/04 Patient is on ventilator via trach. For panendoscopy today. T:99.8 last night. 10/05 Patient is on ventilator via trach, on no drips. s/p panendoscopy yesterday showed chronic gastritis with no source of bleeding identified on upper or lower endoscopy. Afebrile. 10/06 Patient remains on ventilator via trach. T:99.9 yesterday 10/07: Remains on the vent continues to fail CPAP trials due to tachypnea. No nausea vomiting overnight currently resolved. Chest tube had been restarted. Low-grade fever 100.6 10/08: Continues to fail CPAP trials. However on vent support appears comfortable. Daughter at the bedside updated. No fever today 10/09: No acute changes overnight. The patient continues to fail CPAP. Patient tolerating tube feeds. 10/10: Afebrile .patient tolerating CPAP trials this a.m.. False level was noted to be low replacement underway. Bowel movements x2 last night 10/11: Patient continues to tolerate CPAP trials 3-4 hours/day Glucerna tube feeds increased to 45 cc/an hour as recommended by dietitian. 10/12: Patient tolerating CPAP trials only 3-4 hours a day. Patient nodding head yes and no to questions, appears calm and comfortable. Medical status update provided to daughter at bedside. 10/13: Patient was noted to have cuff leak, trach ties then positioned appropriately, with resolution of cuff leak. Patient tolerating tube feeds. Continues on CPAP trials. 10/14: Afebrile. The patient tolerated CPAP trials for approximately 8 hours yesterday. 10/15: Afebrile. Peg tube clogged , multiple attempts to open ,unsuccessful. GI consulted for recommendations. 10/16: Plan for GI for placement of new PEG tube today. IV fluids initiated normal saline at 50 cc an hour. 10/17: GI and to evaluate patient yesterday afternoon NG was placed transfer for placement of PEG tube on Thursday. Today patient removed NG tube to be replaced by LEAD QUALITY TECHNICIAN and tube feeds to be reinstituted. IV fluids continue awaiting replacement of NG tube. 10/18: No acute changes overnight. The patient underwent PEG tube replacement this afternoon. Tube feeds to be reinitiated. Patient continues to respond by nodding head yes and no to questions. Denies pain. Patient tolerating CPAP trials approximately 3-4 hours a day. 10/19: More secretions noted today more suctioning frequency. Patient tolerating CPAP trials 2.5-3 hours today. Patient tolerating tube feeds. IV fluids discontinued. 10/20: Currently on PSV trial. Tolerating tube feeds at goal. Afebrile. No new issues overnight. 10/21: Excessive coughing overnight. Tube feeds at goal. Afebrile. No new issues. 10/22: Afebrile. Tolerating tube feeds at goal. Afebrile. No new issues. Cuff leak persists positional tracheostomy. 10/23: Afebrile. Tube feeds at goal. Currently on CPAP trial. No new issues. Subjective 10/24: Continues with cuff leak. Will attempt tracheostomy exchange today. Enoxaparin on hold times 24 hours. We will restart tomorrow. Appears controlled. Objective Vital Signs / I&O: Vital Signs 10/23/18 12:00 10/23/18 12:29 10/23/18 14:00 Temperature 98.8 F Pulse Rate 91 H 101 H Respiratory Rate 8 L 23 Blood Pressure 107/55 L Pulse Oximetry 99 100 10/23/18 15:00 10/23/18 15:43 10/23/18 16:00 Temperature 99 F Pulse Rate 101 H 106 H 109 H Respiratory Rate 22 20 18 Blood Pressure 135/65 139/64 Pulse Oximetry 100 100 100 10/23/18 17:00 10/23/18 18:00 10/23/18 19:00 Temperature Pulse Rate 109 H 108 H 105 H Respiratory Rate 23 17 28 H Blood Pressure 138/66 137/65 136/66 Pulse Oximetry 100 100 100 10/23/18 20:00 10/23/18 20:12 10/23/18 20:28 Temperature 99.3 F Pulse Rate 106 H 104 H Respiratory Rate 46 H 16 16 Blood Pressure 141/67 H Pulse Oximetry 99 99 10/23/18 21:00 10/23/18 22:00 10/23/18 23:00 Temperature Pulse Rate 118 H 115 H 114 H Respiratory Rate 30 H 16 7 L Blood Pressure 162/74 H 129/58 L 121/58 L Pulse Oximetry 100 99 100 10/24/18 00:00 10/24/18 00:34 10/24/18 01:00 Temperature Pulse Rate 110 H 108 H Respiratory Rate 25 H 19 22 Blood Pressure 147/65 H Pulse Oximetry 100 98 98 10/24/18 01:01 10/24/18 01:17 10/24/18 02:00 Temperature Pulse Rate 119 H 113 H 123 H Respiratory Rate 30 H 30 H 24 Blood Pressure 137/77 Pulse Oximetry 99 100 10/24/18 02:01 10/24/18 03:00 10/24/18 03:21 Temperature Pulse Rate 120 H 118 H 111 H Respiratory Rate 40 H 30 H 22 Blood Pressure 159/86 H 128/68 Pulse Oximetry 100 100 10/24/18 04:00 10/24/18 04:02 10/24/18 05:00 Temperature Pulse Rate 110 H 107 H Respiratory Rate 22 22 23 Blood Pressure 121/65 134/69 Pulse Oximetry 100 99 100 10/24/18 06:00 10/24/18 07:42 10/24/18 08:00 Temperature Pulse Rate 109 H 108 H 109 H Respiratory Rate 44 H 22 Blood Pressure 142/65 H Pulse Oximetry 99 98 98 10/24/18 09:05 10/24/18 09:56 10/24/18 10:00 Temperature 98.3 F Pulse Rate 109 H 112 H Respiratory Rate 28 H 27 H Blood Pressure 138/64 Pulse Oximetry 98 100 Intake & Output 10/23/18 10/24/18 10/24/18 18:59 06:59 18:59 Intake Total 500 / 500 996 / 996 250 / 250 Output Total 550 / 550 Balance 500 / 500 446 / 446 250 / 250 Weight 56.7 kg Intake: Tube Feeding 496 / 496 Water Bolus Amount 250 / 250 Free Water Amount 500 / 500 250 / 250 250 / 250 Output: Urine Amount (Catheter) 550 / 550 Indwelling Urethral Catheter 550 / 550 Other: Date of Last Bowel Movement 10/23/18 10/24/18 10/24/18 # Incontinent Bowel Movements 2 1 Result Diagrams: 10/24/18 06:04 10/24/18 06:04 Other Results: Microbiology 10/01/18 16:57 Blood - Peripheral Aerobic Blood Culture - Final No growth in 5 days 10/01/18 16:57 Blood - Peripheral Anaerobic Blood Culture - Final No growth in 5 days 10/01/18 16:50 Blood - Peripheral Aerobic Blood Culture - Final No growth in 5 days 10/01/18 16:50 Blood - Peripheral Anaerobic Blood Culture - Final No growth in 5 days 10/03/18 08:05 Sputum - Endotracheal Gram Stain - Final 10/03/18 08:05 Sputum - Endotracheal Sputum Culture - Final Rare growth normal respiratory michelle 10/01/18 16:10 Stool Cryptosporidium Antigen - Final Negative - No Cryptosporicium antigen detected In selected cases of patients with a history of immunosuppression or foreign travel, a full ova and parasites examination may be desired. Contact the microbiology lab if full workup is indicated and subit another specimen for testing. 10/01/18 16:10 Stool Giardia Antigen (ABELINO) - Final Negative - No Giardia Antigen detected In selected cases of patients with a history of immunosuppression or foreign travel, a full ova and parasites examination may be desired. Contact the microbiology lab if full workup is indicated and subit another specimen for testing. 10/01/18 13:00 Sputum - Endotracheal Gram Stain - Final 10/01/18 13:00 Sputum - Endotracheal Sputum Culture - Final Proteus mirabilis 10/01/18 16:10 Stool Enteric Pathogens (PCR) - Final 10/01/18 16:10 Stool Stool for WBCs - Final 09/28/18 15:30 Clean Catch Urine Urine Culture - Final No growth in 48 hours 09/28/18 16:00 Sputum - Endotracheal Gram Stain - Final 09/28/18 16:00 Sputum - Endotracheal Sputum Culture - Final No growth in 48 hours 09/18/18 18:45 Blood - Peripheral Aerobic Blood Culture - Final No growth in 5 days 09/18/18 18:45 Blood - Peripheral Anaerobic Blood Culture - Final No growth in 5 days 09/18/18 18:55 Blood - Peripheral Aerobic Blood Culture - Final No growth in 5 days 09/18/18 18:55 Blood - Peripheral Anaerobic Blood Culture - Final No growth in 5 days 09/19/18 12:30 Sputum - Endotracheal Gram Stain - Final 09/19/18 12:30 Sputum - Endotracheal Sputum Culture - Final Light growth normal respiratory michelle 09/18/18 18:35 Catheterized Urine Urine Culture - Final Proteus mirabilis Providencia stuartii Imaging: Head CT 09/18/18 18:40 CONCLUSION: 1. Stable appearance of the brain. Marked ventriculomegaly and white matter disease. . Chest X-Ray 09/18/18 18:41 CONCLUSION: 8.6 cm right lower lobe mass is noted suspicious for malignancy until proven otherwise. A mass was described previously in 2017 in the right lower lobe. Chest CTA 09/18/18 19:26 CONCLUSION: 1. There is no evidence for pulmonary embolism. 2. Severe emphysema. 3. There is a large soft tissue mass in the right lower lobe suspicious for malignancy until proven otherwise. Chest X-Ray 09/20/18 00:00 CONCLUSION: Bibasilar consolidations. The left is new from the prior study. Venous Doppler Study 09/21/18 00:00 CONCLUSION: 1. There is occlusive thrombus within the right cephalic and brachial veins. Chest X-Ray 09/22/18 05:00 CONCLUSION: Unchanged bibasilar consolidation particularly on the right. Chest X-Ray 09/27/18 07:40 CONCLUSION: Enlarging right lung base consolidation since 5 days ago. Chest X-Ray 09/29/18 14:08 CONCLUSION: 1. Interval tracheostomy tube placement. 2. Unchanged right lower lobe consolidation and bibasilar interstitial prominence. Venous Doppler Study 10/01/18 00:00 CONCLUSION: 1. Superficial venous thrombosis identified in the right cephalic vein. 2. No evidence of DVT. Abdomen X-Ray 10/02/18 06:48 CONCLUSION: Persistent airspace consolidation involving the right lower lobe. Abdominal bowel gas pattern is normal. Chest X-Ray 10/02/18 06:48 CONCLUSION: There is persistent airspace consolidation involving the right lower lobe. There is improved aeration on the current exam. Abdomen/Pelvis CT 10/03/18 07:26 CONCLUSION: 1. There is air and fluid identified within the stomach which may account for the patient's perceived distention. No evidence of bowel obstruction or ileus. 2. Extensive atherosclerosis. 3. Persistent right lower lobe airspace consolidation. Chest X-Ray 10/07/18 00:00 CONCLUSION: Stable chest x-ray with airspace opacity in the right lower lung zone. Abdomen X-Ray 10/08/18 09:15 CONCLUSION: No acute findings Chest X-Ray 10/10/18 04:00 CONCLUSION: 1. No significant interval change. 2. Stable parenchymal opacity in the right mid to lower lung zones. Abdomen X-Ray 10/15/18 14:53 CONCLUSION: No dilated loops of small or large bowel. PEG tube in place. Chest X-Ray 10/16/18 19:56 CONCLUSION: Stable appearance of mass in right lower lobe. Slight increase in basilar airspace disease since October 10. Venous Doppler Study 10/19/18 00:00 CONCLUSION: 1. Occlusive thrombus in the left cephalic vein. 2. No DVT in the right arm. Chest X-Ray 10/22/18 06:00 CONCLUSION: Unchanged masslike density within the right lower lobe. Objective Remarks: GENERAL: 68-year-old female, well-developed patient female on ventilator via tracheostomy in no acute distress SKIN: Warm and dry. HEAD: Atraumatic. Normocephalic. EYES: Pupils equal and round. No scleral icterus. No injection or drainage. ENT: No nasal bleeding or discharge. Mucous membranes pink and moist. NECK: Tracheostomy in place, slight pink tinge to secretions, no active bleeding. CARDIOVASCULAR: S1, S2 normal, No murmurs rubs or gallops. RESPIRATORY: Tracheostomy 8.0 Shiley in situ, currently on CPAP trials B/L equal air entry GASTROINTESTINAL: Abdomen soft, non-tender,distended. PEG tube in place no drainage. MUSCULOSKELETAL: Extremities without clubbing, cyanosis, or edema. s/p L AKA. NEUROLOGICAL: Awakens easily looks around. Blinks and squeezes hand to command. Appropriate. Assessment and Plan - Assessment and Plan Plan: NEURO: History of stroke Off sedation. Monitor neuro status Currently on acetaminophen 60 p.o. every 6 hours as needed fever/pain with as needed hydrocodone/acetaminophen for pain RESP: Acute respiratory failure on mechanical ventilation Emphysema Lung mass History of prior trach after stroke, has been subsequently decannulated Per Dr. De Jesus. not wishing to pursue CT-guided biopsy. Continue with vent support Daily CPAP trials. Vent bundle Albuterol/ipratropium aerosols every 6 hours with albuterol aerosols every 2 as needed dyspnea Percutaneous tracheostomy performed at bedside 09/29. Pulm toilet, trach care CV: HTN Monitor BP/heart rate keep MAP>65mmHg. On Cardizem 30mg q6 with hold orders. Wilson 60 mg daily metoprolol tartrate 5 mg twice daily at home Labetalol as needed GI: Clogged PEG tube-resolved PEG in place. On Glucerna 1.5 @ 45ml/hr KUB abdomen 10/02 Normal bowel gas pattern. CT abd/pelvis 10/03: No evidence of bowel obstruction or ileus. GI consultedfor PEG tube malfunction. Fluids PEG tube replacement per GI 10/18 FEN/RENAL: Monitor renal function, I/O's, electrolytes replacement per protocol. Free water 250ml Q8, ID: HCAP UTI Urine culture from 09/18 with providentia and Proteus. BC 10/01: NGTD sputum cx 09/28 and 10/03 : No growth Repleted therapies with cefepime and Vanco, monitor for signs of infections ( Fever, WBC) C-diff PCR negative on 10/01 HEME: R brachial DVT Left cephalic superficial thrombus Anemia/microcytic Enoxaparin 60 mg subcu every 12 hours Hold for tracheostomy exchange. s/p Transfuse 2u PRBC 10/01. Monitor CBC daily as needed. ENDO: Diabetes mellitus Insulin sliding scale PROPH: SCD/enoxaparin for DVT prophylaxis restart 10/25. Protonix 40mg Q12 for stress ulcer prophylaxis. 10/01 Doppler US UE b/l: Superficial venous thrombosis identified in the right cephalic vein. No evidence of DVT. 09/21 Doppler US RUE: Occlusive thrombus cephalic and brachial veins ACCESS: PIV x2. Full code Level 3 follow-up Planned transfer to LTAC when bed available
[2018-10-24] MEDS ORDERED: Midazolam Inj 5 MG/ML 1 ML Vial ONE (12:09)
--- NOTE | 2018-10-24 12:29 | P.PCN ---
Date of procedure: 10/24/18 Pre-op diagnosis: Cuff leak percutaneous tracheostomy tube Post-op diagnosis: same Procedure: DATE: 10/24/2018 PROCEDURE: Percutaneous tracheostomy exchange #8 Shiley #8 XLT distal INDICATION: Cuff leak DETAILS OF PROCEDURE The patient was placed in optimal position and preoxygenated with 100% FiO2 via bag valve mask. At the start oxygen saturation was 100 %. The patient was administered 2 mg of midazolam. I entered the #8 Shiley decannulated percutaneous tracheostomy tube with gum bougie. On single attempt a size 8.0 Shiley distal XLT was placed without complication over bougie with inner cannula placed. Patient verified by end tidal CO2 detector and by auscultating over bilateral lung esteves. The percutaneous tracheostomy was secured. Follow- up chest x-ray pending. Tidal volume around 300-900 saturations 100% post exchange.
--- NOTE | 2018-10-24 13:32 | XR ---
EXAM DATE: 10/24/2018 1:29 PM EST AGE/SEX: 68 years / Female INDICATIONS: Shortness of breath. CLINICAL DATA: This is the patient's initial encounter. Patient reports that signs and symptoms have been present for 1 day and indicates a pain score of Nonresponsive. MEDICAL/SURGICAL HISTORY: . Diabetes. Hypertension. Acute respiratory failure on mechanical yousif tilation. CVA. Dysphagia. Hemiplegia. Hypoxia. Amputation above left knee. PEG tube placement. Trache ostomy. . COMPARISON: [facility] [place], CHEST 1V SINGLE AP, 10/22/2018. . FINDINGS: Persistent consolidative changes in the right lower lobe. Trach tube in good position Left lung clear The heart and pulmonary vascularity are normal. CONCLUSION: Persistent Consolidative right lower lobe stable interval. Electronically signed by: Abhishek Patel MD Board Certified Radiologist 10/24/2018 1:30 PM EST
[2018-10-24] MEDS: Acetaminophen 325 MG Tablet PO PRN (21:08)
[2018-10-25] MEDS: Pantoprazole Inj 40 MG Vial IV.PUSH SCH ×2 (00:32→12:00)
[2018-10-25] MEDS: Oral Hygiene Kit OROPHARYNG SCH ×4 (00:32→17:13)
[2018-10-25] MEDS: Artificial Tears Opth Drops 15 ML Bottle EACH EYE SCH ×3 (00:32→17:13)
[2018-10-25] MEDS: Insulin NovoLIN Regular Correctional Sugar Inj SQ SCH ×4 (00:40→17:15)
[2018-10-25] MEDS: dilTIAZem 30 MG Tablet PO SCH ×4 (04:44→23:00)
--- NOTE | 2018-10-25 05:42 | XR ---
EXAM DATE: 10/25/2018 5:37 AM EST AGE/SEX: 68 years / Female INDICATIONS: Shortness of breath. CLINICAL DATA: This is the patient's subsequent encounter. Patient reports that signs and symptoms h ave been present for 2 days and indicates a pain score of Nonresponsive. MEDICAL/SURGICAL HISTORY: . Diabetes. Hypertension. Acute respiratory failure on mechanical yousif tilation. CVA. Dysphagia. Hemiplegia. Hypoxia. . Amputation above left knee. PEG tube placement. Tr acheostomy. COMPARISON: [facility] [place], CHEST 1V SINGLE AP, 10/24/2018. [facility] [place], CTA PULMONARY W CONTRAST W 3D, 09/18/2018. . FINDINGS: A single AP view of the chest demonstrates masslike consolidation right lower lobe. Heart enlarged. L ungs are hyperinflated. Tracheostomy tube unchanged The cardiomediastinal contours are unremarkable. Osseous structures are intact. CONCLUSION: Masslike consolidation right lower lobe. Electronically signed by: Scott Ogden MD Board Certified Radiologist 10/25/2018 5:41 AM EST
--- NOTE | 2018-10-25 08:20 | P.PNCC ---
Subjective Subjective Remarks/Hospital Course: 09/18: 68-year-old female past medical history of stroke, left BKA, who was on home hospice until just prior to arrival, presents for an evaluation of fever and altered mental status. According to EMS the patient had not required oxygen until beginning of this week when she had gradual increased demand of her oxygen. End-tidal CO2 prior to arrival was 6. Initial room nasal cannula saturation was 91, she was placed on nonrebreather position of comfort and transfer to emergency department. EMS related that the had elected to revoke the patient's DNR and hospice care prior to transferring her to the hospital. The patient apparently is normally a GCS of 14, apparently she does take some thickened food p.o. department the patient was severely altered with GCS of 6 on arrival [id number] and was intubated by ED attending for an airway protection. 09/19: Remains sedated, orally intubated on mechanical ventilation. CT chest showed right lower lobe lung mass suspicious for malignancy. Patient has a PEG tube following previous stroke. 09/20: Remains sedated, orally intubated on mechanical ventilation. Started on tube feeds. 09/21: Remains sedated, orally intubated on mechanical ventilation. Tolerating tube feeds. Right approximately swelling noted. 09/22 Is not tolerating CPAP trial when decrease PS below 18. Daughter at bedside, says will be here later. Says they don't think they want to proceed with lung biopsy at this time, but on the other hand she discusses the possibility of re-do trach. She says they are not sure how to proceed. I suggested we meet together. Daughter states she has been bedridden since stroke about 4 years ago. Has been in group home. PEG due to dysphagia, does not eat. Speaks a little but daughter states she has declined significantly over the last 2 weeks. 09/23 No significant change. Patient does not tolerate CPAP. Family is very clear that they do not wish to pursue biopsy or diagnosis of suspected lung cancer. At this time, they wish to continue supportive care with vent and FULL CODE. 09/24 No change. Does not tolerate CPAP. Will diurese for positive fluid balance. 09/25 Now on CPAP 20/5 and not tolerating wean. Continue attempts at diuresis to address positive fluid balance since admission 09/26: Remains sedated, orally intubated on mechanical ventilation. Hold CPAP trials yesterday 09/27 Patient is sedated with Diprivan and intubated. Tolerating tube feeds. Afebrile. 09/28 Patient remains intubated and sedated. T;100.8 09/29 Has not made any progress towards weaning. Family offered comfort measures however they expressed desire to proceed with trach 09/30 status post bedside tracheostomy yesterday by Dr. Gavin. Discontinued propofol drip. On CPAP 14/5 for 2 hours today. BP is low, will need to hold metoprolol and titrate back on cardizem (nurses held some doses yesterday too). Positive fluid balance but not able to diurese today due to low BP. Awaiting bed at [facility]. 10/01 Patient remains on ventilator via trach. On no sedation. Hgb 6.7 this morning and T: 100.4 at midnight. Tachycardic. 10/02 Patient is on ventilator via trach. On no sedation. Spiked fever with T: 101.5. s/p transfusion 2u PRBC yesterday. Mcmillan/thick secretions noted per nursing staff. 10/03 Patient had low grade fever with T:100.4 last night. Tube feeds held for abd distention. KUB yesterday showed normal bowel gas pattern. 10/04 Patient is on ventilator via trach. For panendoscopy today. T:99.8 last night. 10/05 Patient is on ventilator via trach, on no drips. s/p panendoscopy yesterday showed chronic gastritis with no source of bleeding identified on upper or lower endoscopy. Afebrile. 10/06 Patient remains on ventilator via trach. T:99.9 yesterday 10/07: Remains on the vent continues to fail CPAP trials due to tachypnea. No nausea vomiting overnight currently resolved. Chest tube had been restarted. Low-grade fever 100.6 10/08: Continues to fail CPAP trials. However on vent support appears comfortable. Daughter at the bedside updated. No fever today 10/09: No acute changes overnight. The patient continues to fail CPAP. Patient tolerating tube feeds. 10/10: Afebrile .patient tolerating CPAP trials this a.m.. False level was noted to be low replacement underway. Bowel movements x2 last night 10/11: Patient continues to tolerate CPAP trials 3-4 hours/day Glucerna tube feeds increased to 45 cc/an hour as recommended by dietitian. 10/12: Patient tolerating CPAP trials only 3-4 hours a day. Patient nodding head yes and no to questions, appears calm and comfortable. Medical status update provided to daughter at bedside. 10/13: Patient was noted to have cuff leak, trach ties then positioned appropriately, with resolution of cuff leak. Patient tolerating tube feeds. Continues on CPAP trials. 10/14: Afebrile. The patient tolerated CPAP trials for approximately 8 hours yesterday. 10/15: Afebrile. Peg tube clogged , multiple attempts to open ,unsuccessful. GI consulted for recommendations. 10/16: Plan for GI for placement of new PEG tube today. IV fluids initiated normal saline at 50 cc an hour. 10/17: GI and to evaluate patient yesterday afternoon NG was placed transfer for placement of PEG tube on Thursday. Today patient removed NG tube to be replaced by CHRONIC MANAGER and tube feeds to be reinstituted. IV fluids continue awaiting replacement of NG tube. 10/18: No acute changes overnight. The patient underwent PEG tube replacement this afternoon. Tube feeds to be reinitiated. Patient continues to respond by nodding head yes and no to questions. Denies pain. Patient tolerating CPAP trials approximately 3-4 hours a day. 10/19: More secretions noted today more suctioning frequency. Patient tolerating CPAP trials 2.5-3 hours today. Patient tolerating tube feeds. IV fluids discontinued. 10/20: Currently on PSV trial. Tolerating tube feeds at goal. Afebrile. No new issues overnight. 10/21: Excessive coughing overnight. Tube feeds at goal. Afebrile. No new issues. 10/22: Afebrile. Tolerating tube feeds at goal. Afebrile. No new issues. Cuff leak persists positional tracheostomy. 10/23: Afebrile. Tube feeds at goal. Currently on CPAP trial. No new issues. Subjective 10/24: Continues with cuff leak. Will attempt tracheostomy exchange today. Enoxaparin on hold times 24 hours. We will restart tomorrow. Appears controlled. 10/25 Patient is on ventilator via trach. Afebrile. Objective Vital Signs / I&O: Vital Signs 10/24/18 09:05 10/24/18 09:56 10/24/18 10:00 Temperature 98.3 F Pulse Rate 109 H 112 H Respiratory Rate 28 H 27 H Blood Pressure 138/64 Pulse Oximetry 98 100 10/24/18 12:00 10/24/18 12:27 10/24/18 14:00 Temperature 98.9 F Pulse Rate 105 H 112 H Respiratory Rate 26 H 15 Blood Pressure 135/62 Pulse Oximetry 98 100 10/24/18 14:22 10/24/18 14:59 10/24/18 16:00 Temperature 98.8 F Pulse Rate 119 H 116 H 107 H Respiratory Rate 16 16 16 Blood Pressure 122/62 Pulse Oximetry 98 10/24/18 16:22 10/24/18 17:54 10/24/18 18:16 Temperature Pulse Rate 112 H 113 H Respiratory Rate 16 16 Blood Pressure 116/61 Pulse Oximetry 100 100 10/24/18 18:18 10/24/18 18:20 10/24/18 18:22 Temperature Pulse Rate 114 H 114 H 115 H Respiratory Rate 16 16 16 Blood Pressure 116/59 L 116/62 116/63 Pulse Oximetry 100 100 100 10/24/18 18:24 10/24/18 18:26 10/24/18 18:28 Temperature Pulse Rate 114 H 114 H 113 H Respiratory Rate 16 16 16 Blood Pressure 114/63 116/62 116/61 Pulse Oximetry 100 100 100 10/24/18 18:30 10/24/18 18:32 10/24/18 18:34 Temperature Pulse Rate 113 H 114 H 114 H Respiratory Rate 16 16 16 Blood Pressure 114/63 111/60 111/58 L Pulse Oximetry 100 100 100 10/24/18 18:36 10/24/18 18:38 10/24/18 18:40 Temperature Pulse Rate 115 H 114 H 114 H Respiratory Rate 16 16 16 Blood Pressure 113/55 L 113/59 L 114/59 L Pulse Oximetry 100 99 100 10/24/18 18:42 10/24/18 18:46 10/24/18 19:00 Temperature Pulse Rate 114 H 125 H 118 H Respiratory Rate 16 25 H 16 Blood Pressure 113/58 L 130/92 H 119/58 L Pulse Oximetry 100 100 100 10/24/18 19:30 10/24/18 19:36 10/24/18 19:55 Temperature Pulse Rate 116 H 113 H Respiratory Rate 17 20 20 Blood Pressure 120/58 L Pulse Oximetry 100 100 10/24/18 20:00 10/24/18 20:30 10/24/18 21:00 Temperature Pulse Rate 123 H 123 H 124 H Respiratory Rate 17 17 54 H Blood Pressure 123/58 L 118/57 L 131/60 Pulse Oximetry 98 98 98 10/24/18 21:30 10/24/18 22:00 10/24/18 22:30 Temperature Pulse Rate 119 H 110 H 106 H Respiratory Rate 23 16 15 Blood Pressure 114/62 93/52 L 92/55 L Pulse Oximetry 100 99 100 10/24/18 23:00 10/24/18 23:30 10/25/18 00:00 Temperature Pulse Rate 100 H 97 H 100 H Respiratory Rate 16 16 17 Blood Pressure 99/58 L 91/53 L 98/53 L Pulse Oximetry 100 100 100 10/25/18 00:05 10/25/18 00:30 10/25/18 01:00 Temperature Pulse Rate 104 H 100 H Respiratory Rate 16 16 16 Blood Pressure 112/56 L 106/57 L Pulse Oximetry 100 100 100 10/25/18 01:30 10/25/18 02:00 10/25/18 02:30 Temperature Pulse Rate 109 H 107 H 114 H Respiratory Rate 33 H 42 H 50 H Blood Pressure 120/62 114/59 L 138/65 Pulse Oximetry 100 100 100 10/25/18 03:00 10/25/18 03:25 10/25/18 03:30 Temperature Pulse Rate 108 H 104 H 106 H Respiratory Rate 6 L 16 14 Blood Pressure 101/57 L 119/62 Pulse Oximetry 100 100 10/25/18 04:00 10/25/18 04:18 10/25/18 04:30 Temperature Pulse Rate 97 H 98 H Respiratory Rate 6 L 16 16 Blood Pressure 104/56 L 109/58 L Pulse Oximetry 99 100 99 10/25/18 05:00 10/25/18 05:30 10/25/18 06:00 Temperature Pulse Rate 102 H 106 H 117 H Respiratory Rate 18 19 26 H Blood Pressure 141/63 H 123/60 124/67 Pulse Oximetry 100 100 99 10/25/18 07:33 Temperature Pulse Rate Respiratory Rate 12 Blood Pressure Pulse Oximetry 100 Intake & Output 10/24/18 10/25/18 10/25/18 18:59 06:59 18:59 Intake Total 1372 / 1372 1047 / 1047 Output Total 500 / 500 250 / 250 Balance 872 / 872 797 / 797 Weight 57.6 kg Intake: Tube Feeding 472 / 472 547 / 547 Water Bolus Amount 400 / 400 250 / 250 Free Water Amount 500 / 500 250 / 250 Output: Urine Amount (Catheter) 500 / 500 250 / 250 Indwelling Urethral Catheter 500 / 500 250 / 250 Other: Date of Last Bowel Movement 10/24/18 10/24/18 # Incontinent Bowel Movements 1 3 Result Diagrams: 10/24/18 06:04 10/24/18 06:04 Other Results: Laboratory Results - last 12 hr 10/25/18 00:29 POC Glucose 134 H Imaging: Head CT 09/18/18 18:40 CONCLUSION: 1. Stable appearance of the brain. Marked ventriculomegaly and white matter disease. . Chest CTA 09/18/18 19:26 CONCLUSION: 1. There is no evidence for pulmonary embolism. 2. Severe emphysema. 3. There is a large soft tissue mass in the right lower lobe suspicious for malignancy until proven otherwise. Abdomen/Pelvis CT 10/03/18 07:26 CONCLUSION: 1. There is air and fluid identified within the stomach which may account for the patient's perceived distention. No evidence of bowel obstruction or ileus. 2. Extensive atherosclerosis. 3. Persistent right lower lobe airspace consolidation. Abdomen X-Ray 10/15/18 14:53 CONCLUSION: No dilated loops of small or large bowel. PEG tube in place. Venous Doppler Study 10/19/18 00:00 CONCLUSION: 1. Occlusive thrombus in the left cephalic vein. 2. No DVT in the right arm. Chest X-Ray 10/25/18 06:00 CONCLUSION: Masslike consolidation right lower lobe. Objective Remarks: GENERAL: 68-year-old female, well-developed patient female on ventilator via tracheostomy in no acute distress SKIN: Warm and dry. HEAD: Atraumatic. Normocephalic. EYES: Pupils equal and round. No scleral icterus. No injection or drainage. ENT: No nasal bleeding or discharge. Mucous membranes pink and moist. NECK: Tracheostomy in place, slight pink tinge to secretions, no active bleeding. CARDIOVASCULAR: S1, S2 normal, No murmurs rubs or gallops. RESPIRATORY: Tracheostomy 8.0 Shiley in situ, currently on CPAP trials B/L equal air entry GASTROINTESTINAL: Abdomen soft, non-tender,distended. PEG tube in place no drainage. MUSCULOSKELETAL: Extremities without clubbing, cyanosis, or edema. s/p L AKA. NEUROLOGICAL: Awakens easily looks around. Blinks and squeezes hand to command. Assessment and Plan - Assessment and Plan Plan: NEURO: History of stroke Off sedation. Monitor neuro status Currently on acetaminophen 60 p.o. every 6 hours as needed fever/pain with as needed hydrocodone/acetaminophen for pain RESP: Acute respiratory failure on mechanical ventilation Emphysema Lung mass History of prior trach after stroke, has been subsequently decannulated Per Dr. De Jesus. not wishing to pursue CT-guided biopsy. Continue with vent support Daily CPAP trials. Vent bundle Albuterol/ipratropium aerosols every 6 hours with albuterol aerosols every 2 as needed dyspnea Percutaneous tracheostomy performed at bedside 09/29. Pulm toilet, trach care CV: HTN Monitor BP/heart rate keep MAP>65mmHg. On Cardizem 30mg q6 with hold orders. Labetalol as needed GI: Clogged PEG tube-resolved PEG in place. On Glucerna 1.5 @ 45ml/hr KUB abdomen 10/02 Normal bowel gas pattern. CT abd/pelvis 10/03: No evidence of bowel obstruction or ileus. GI consultedfor PEG tube malfunction. Fluids PEG tube replaced 10/18 FEN/RENAL: Monitor renal function, I/O's, electrolytes replacement per protocol. Free water 250ml Q8, ID: HCAP UTI Urine culture from 09/18 with providentia and Proteus. BC 10/01: NGTD sputum cx 09/28 and 10/03 : No growth Off abx- monitor for signs of infections ( Fever, WBC) C-diff PCR negative on 10/01 HEME: R brachial DVT Left cephalic superficial thrombus Anemia/microcytic Enoxaparin 60 mg subcu every 12 hours Hold for tracheostomy exchange. s/p Transfuse 2u PRBC 10/01. Monitor CBC daily as needed. ENDO: Diabetes mellitus Insulin sliding scale PROPH: SCD/enoxaparin for DVT prophylaxis resume Protonix 40mg Q12 for stress ulcer prophylaxis. 10/01 Doppler US UE b/l: Superficial venous thrombosis identified in the right cephalic vein. No evidence of DVT. 09/21 Doppler US RUE: Occlusive thrombus cephalic and brachial veins ACCESS: PIV x2. Full code Level 3 follow-up Planned transfer to LTAC when bed available
[2018-10-25 08:33] LABS: Baso % (Auto) 0.5 % (0.0-2.0); Eos # (Auto) 0.2 th/mm3 (0.0-0.4); Eos % (Auto) 2.9 % (0.0-4.0); Hematocrit 29.4 % (35.0-46.0); Hemoglobin 9.2 gm/dL (11.6-15.3); Lymph # (Auto) 1.1 th/mm3 (1.0-4.8); Lymph % (Auto) 14.2 % (9.0-44.0); Mean Corpuscular HGB Conc 31.4 % (32.0-36.0); Mean Corpuscular Hemoglobin 24.4 pg (27.0-34.0); Mean Corpuscular Volume 77.7 fL (80.0-100.0); Mean Platelet Volume 8.9 fL (7.0-11.0); Mono # (Auto) 1.1 th/mm3 (0.0-0.9); Neut # (Auto) 5.3 th/mm3 (1.8-7.7); Neut % (Auto) 68.4 % (16.0-70.0); Platelet Count 397 th/mm3 (150-450); Red Blood Count 3.78 mil/mm3 (4.00-5.30); Red Cell Distribution Width 20.9 % (11.6-17.2); White Blood Count 7.8 th/mm3 (4.0-11.0)
[2018-10-25 08:58] LABS: Alanine Aminotransferase 12 U/L (10-53); Albumin 2.3 g/dL (3.4-5.0); Anion Gap 5 meq/L (5-15); Aspartate Aminotransferase 14 U/L (15-37); Blood Urea Nitrogen 18 mg/dL (7-18); Calcium 8.4 mg/dL (8.5-10.1); Carbon Dioxide 30.4 meq/L (21.0-32.0); Chloride 106 meq/L (98-107); Glomerular Filtration Rate Greater Than 89 mL/min (>89); Glucose,Random 123 mg/dL (74-106); Magnesium 2.5 mg/dL (1.5-2.5); Phosphorus 3.8 mg/dL (2.5-4.9); Potassium 4.5 meq/L (3.5-5.1); Sodium 141 meq/L (136-145)
[2018-10-25 09:00] LABS: Alkaline Phosphatase 86 U/L (45-117); Total Protein 8.5 g/dL (6.4-8.2)
[2018-10-25] MEDS: Senna/Docusate Sodium 8.6/50 MG Tablet PO SCH ×2 (09:20→20:46)
[2018-10-25] MEDS: Ascorbic Acid 500 MG Tablet G-TUBE SCH (09:20)
[2018-10-25] MEDS: Chlorhexidine 0.12% Oral Kit 15 ML UDC OROPHARYNG SCH ×2 (09:21→20:46)
[2018-10-25] MEDS ORDERED: Enoxaparin Inj 40 MG/0.4 ML Syringe SQ SCH (18:00)
--- NOTE | 2018-10-25 19:59 | P.PNPL ---
Subjective Interval history: 68 YOAA female who was with Hospice svc, now rescended back on Vent off sedation Tolerates TF No Fever Did't tolerate CPAP Physical Exam Vital signs: Vital Signs 10/24/18 20:00 10/24/18 20:30 10/24/18 21:00 Temperature Pulse Rate 123 H 123 H 124 H Respiratory Rate 17 17 54 H Blood Pressure 123/58 L 118/57 L 131/60 Pulse Oximetry 98 98 98 10/24/18 21:30 10/24/18 22:00 10/24/18 22:30 Temperature Pulse Rate 119 H 110 H 106 H Respiratory Rate 23 16 15 Blood Pressure 114/62 93/52 L 92/55 L Pulse Oximetry 100 99 100 10/24/18 23:00 10/24/18 23:30 10/25/18 00:00 Temperature Pulse Rate 100 H 97 H 100 H Respiratory Rate 16 16 17 Blood Pressure 99/58 L 91/53 L 98/53 L Pulse Oximetry 100 100 100 10/25/18 00:05 10/25/18 00:30 10/25/18 01:00 Temperature Pulse Rate 104 H 100 H Respiratory Rate 16 16 16 Blood Pressure 112/56 L 106/57 L Pulse Oximetry 100 100 100 10/25/18 01:30 10/25/18 02:00 10/25/18 02:30 Temperature Pulse Rate 109 H 107 H 114 H Respiratory Rate 33 H 42 H 50 H Blood Pressure 120/62 114/59 L 138/65 Pulse Oximetry 100 100 100 10/25/18 03:00 10/25/18 03:25 10/25/18 03:30 Temperature Pulse Rate 108 H 104 H 106 H Respiratory Rate 6 L 16 14 Blood Pressure 101/57 L 119/62 Pulse Oximetry 100 100 10/25/18 04:00 10/25/18 04:18 10/25/18 04:30 Temperature Pulse Rate 97 H 98 H Respiratory Rate 6 L 16 16 Blood Pressure 104/56 L 109/58 L Pulse Oximetry 99 100 99 10/25/18 05:00 10/25/18 05:30 10/25/18 06:00 Temperature Pulse Rate 102 H 106 H 117 H Respiratory Rate 18 19 26 H Blood Pressure 141/63 H 123/60 124/67 Pulse Oximetry 100 100 99 10/25/18 07:33 10/25/18 08:00 10/25/18 09:06 Temperature 100.2 F H Pulse Rate 109 H 100 H Respiratory Rate 12 12 8 L Blood Pressure 112/55 L Pulse Oximetry 100 100 10/25/18 10:00 10/25/18 12:00 10/25/18 12:17 Temperature 100.1 F H Pulse Rate 109 H 117 H Respiratory Rate 16 16 Blood Pressure 119/73 Pulse Oximetry 98 99 10/25/18 14:00 10/25/18 15:14 10/25/18 16:00 Temperature 100.4 F H Pulse Rate 115 H 116 H 112 H Respiratory Rate 16 16 Blood Pressure 126/62 Pulse Oximetry 99 99 10/25/18 18:00 10/25/18 19:29 Temperature Pulse Rate 122 H 121 H Respiratory Rate 17 Blood Pressure Pulse Oximetry 99 Intake & Output 10/25/18 10/25/18 10/26/18 06:59 18:59 06:59 Intake Total 1047 / 1047 1402 / 1402 Output Total 250 / 250 525 / 525 Balance 797 / 797 877 / 877 Weight 57.6 kg Intake: Tube Feeding 547 / 547 402 / 402 Water Bolus Amount 250 / 250 500 / 500 Free Water Amount 250 / 250 500 / 500 Output: Urine Amount (Catheter) 250 / 250 525 / 525 Indwelling Urethral Catheter 250 / 250 525 / 525 Other: Date of Last Bowel Movement 10/24/18 10/25/18 # Incontinent Bowel Movements 3 3 GENERAL: Elderly AA female, on Vent SKIN: Warm and dry. HEAD: Normocephalic. EYES: No scleral icterus. No injection or drainage. NECK: Supple, trachea midline. No JVD or lymphadenopathy. has Trach CARDIOVASCULAR: Regular rate and rhythm without murmurs, gallops, or rubs. RESPIRATORY: Breath sounds equal bilaterally. No accessory muscle use. GASTROINTESTINAL: Abdomen soft, non-tender, nondistended. MUSCULOSKELETAL: No cyanosis, or edema. Left AKA BACK: Nontender without obvious deformity. No CVA tenderness. - Urinary Catheter Management Indwelling Temp Sensing Catheter Cath placed during this visit: yes, but has since been removed by the nurse Reason for continuing: Severe pressure ulcer/wound Insertion date: 09/18/18 Insertion time: 18:50 Removal date: 09/23/18 Removal time: 16:00 Female External Cath placed during this visit: no Reason for continuing: Severe pressure ulcer/wound Straight Cath placed during this visit: no Indwelling Urethral Catheter Cath placed during this visit: yes, but has since been removed by the nurse Reason for continuing: Severe pressure ulcer/wound Insertion date: 10/21/18 Insertion time: 10:00 Removal date: 10/21/18 Removal time: 09:53 Assessment and Plan - Plan IMPRESSION: VDRF large Rt lung mass COPD HTN H/O CVA PLAN: Cont vent support. Aerosol nebs Cont Abx Trach care. EMMA RN at BS.
[2018-10-26] MEDS: Insulin NovoLIN Regular Correctional Sugar Inj SQ SCH ×3 (01:14→11:27)
[2018-10-26] MEDS: Artificial Tears Opth Drops 15 ML Bottle EACH EYE SCH ×3 (01:15→15:36)
[2018-10-26] MEDS: Oral Hygiene Kit OROPHARYNG SCH ×4 (01:15→15:41)
[2018-10-26] MEDS: Pantoprazole Inj 40 MG Vial IV.PUSH SCH ×2 (01:17→13:21)
[2018-10-26] MEDS: dilTIAZem 30 MG Tablet PO SCH ×3 (03:07→13:22)
--- NOTE | 2018-10-26 07:07 | P.PNCC ---
Subjective Subjective Remarks/Hospital Course: 09/18: 68-year-old female past medical history of stroke, left BKA, who was on home hospice until just prior to arrival, presents for an evaluation of fever and altered mental status. According to EMS the patient had not required oxygen until beginning of this week when she had gradual increased demand of her oxygen. End-tidal CO2 prior to arrival was 6. Initial room nasal cannula saturation was 91, she was placed on nonrebreather position of comfort and transfer to emergency department. EMS related that the had elected to revoke the patient's DNR and hospice care prior to transferring her to the hospital. The patient apparently is normally a GCS of 14, apparently she does take some thickened food p.o. department the patient was severely altered with GCS of 6 on arrival [id number] and was intubated by ED attending for an airway protection. 09/19: Remains sedated, orally intubated on mechanical ventilation. CT chest showed right lower lobe lung mass suspicious for malignancy. Patient has a PEG tube following previous stroke. 09/20: Remains sedated, orally intubated on mechanical ventilation. Started on tube feeds. 09/21: Remains sedated, orally intubated on mechanical ventilation. Tolerating tube feeds. Right approximately swelling noted. 09/22 Is not tolerating CPAP trial when decrease PS below 18. Daughter at bedside, says will be here later. Says they don't think they want to proceed with lung biopsy at this time, but on the other hand she discusses the possibility of re-do trach. She says they are not sure how to proceed. I suggested we meet together. Daughter states she has been bedridden since stroke about 4 years ago. Has been in longterm. PEG due to dysphagia, does not eat. Speaks a little but daughter states she has declined significantly over the last 2 weeks. 09/23 No significant change. Patient does not tolerate CPAP. Family is very clear that they do not wish to pursue biopsy or diagnosis of suspected lung cancer. At this time, they wish to continue supportive care with vent and FULL CODE. 09/24 No change. Does not tolerate CPAP. Will diurese for positive fluid balance. 09/25 Now on CPAP 20/5 and not tolerating wean. Continue attempts at diuresis to address positive fluid balance since admission 09/26: Remains sedated, orally intubated on mechanical ventilation. Hold CPAP trials yesterday 09/27 Patient is sedated with Diprivan and intubated. Tolerating tube feeds. Afebrile. 09/28 Patient remains intubated and sedated. T;100.8 09/29 Has not made any progress towards weaning. Family offered comfort measures however they expressed desire to proceed with trach 09/30 status post bedside tracheostomy yesterday by Dr. Gavin. Discontinued propofol drip. On CPAP 14/5 for 2 hours today. BP is low, will need to hold metoprolol and titrate back on cardizem (nurses held some doses yesterday too). Positive fluid balance but not able to diurese today due to low BP. Awaiting bed at [facility]. 10/01 Patient remains on ventilator via trach. On no sedation. Hgb 6.7 this morning and T: 100.4 at midnight. Tachycardic. 10/02 Patient is on ventilator via trach. On no sedation. Spiked fever with T: 101.5. s/p transfusion 2u PRBC yesterday. Mcmillan/thick secretions noted per nursing staff. 10/03 Patient had low grade fever with T:100.4 last night. Tube feeds held for abd distention. KUB yesterday showed normal bowel gas pattern. 10/04 Patient is on ventilator via trach. For panendoscopy today. T:99.8 last night. 10/05 Patient is on ventilator via trach, on no drips. s/p panendoscopy yesterday showed chronic gastritis with no source of bleeding identified on upper or lower endoscopy. Afebrile. 10/06 Patient remains on ventilator via trach. T:99.9 yesterday 10/07: Remains on the vent continues to fail CPAP trials due to tachypnea. No nausea vomiting overnight currently resolved. Chest tube had been restarted. Low-grade fever 100.6 10/08: Continues to fail CPAP trials. However on vent support appears comfortable. Daughter at the bedside updated. No fever today 10/09: No acute changes overnight. The patient continues to fail CPAP. Patient tolerating tube feeds. 10/10: Afebrile .patient tolerating CPAP trials this a.m.. False level was noted to be low replacement underway. Bowel movements x2 last night 10/11: Patient continues to tolerate CPAP trials 3-4 hours/day Glucerna tube feeds increased to 45 cc/an hour as recommended by dietitian. 10/12: Patient tolerating CPAP trials only 3-4 hours a day. Patient nodding head yes and no to questions, appears calm and comfortable. Medical status update provided to daughter at bedside. 10/13: Patient was noted to have cuff leak, trach ties then positioned appropriately, with resolution of cuff leak. Patient tolerating tube feeds. Continues on CPAP trials. 10/14: Afebrile. The patient tolerated CPAP trials for approximately 8 hours yesterday. 10/15: Afebrile. Peg tube clogged , multiple attempts to open ,unsuccessful. GI consulted for recommendations. 10/16: Plan for GI for placement of new PEG tube today. IV fluids initiated normal saline at 50 cc an hour. 10/17: GI and to evaluate patient yesterday afternoon NG was placed transfer for placement of PEG tube on Thursday. Today patient removed NG tube to be replaced by LOFTSMAN/WOMAN and tube feeds to be reinstituted. IV fluids continue awaiting replacement of NG tube. 10/18: No acute changes overnight. The patient underwent PEG tube replacement this afternoon. Tube feeds to be reinitiated. Patient continues to respond by nodding head yes and no to questions. Denies pain. Patient tolerating CPAP trials approximately 3-4 hours a day. 10/19: More secretions noted today more suctioning frequency. Patient tolerating CPAP trials 2.5-3 hours today. Patient tolerating tube feeds. IV fluids discontinued. 10/20: Currently on PSV trial. Tolerating tube feeds at goal. Afebrile. No new issues overnight. 10/21: Excessive coughing overnight. Tube feeds at goal. Afebrile. No new issues. 10/22: Afebrile. Tolerating tube feeds at goal. Afebrile. No new issues. Cuff leak persists positional tracheostomy. 10/23: Afebrile. Tube feeds at goal. Currently on CPAP trial. No new issues. Subjective 10/24: Continues with cuff leak. Will attempt tracheostomy exchange today. Enoxaparin on hold times 24 hours. We will restart tomorrow. Appears controlled. 10/25 Patient is on ventilator via trach. Afebrile. 10/26 Patient remains on ventilator via trach, hypertensive. Afebrile. Tolerating tube feeds. Objective Vital Signs / I&O: Vital Signs 10/25/18 07:33 10/25/18 08:00 10/25/18 09:06 Temperature 100.2 F H Pulse Rate 109 H 100 H Respiratory Rate 12 12 8 L Blood Pressure 112/55 L Pulse Oximetry 100 100 10/25/18 10:00 10/25/18 12:00 10/25/18 12:17 Temperature 100.1 F H Pulse Rate 109 H 117 H Respiratory Rate 16 16 Blood Pressure 119/73 Pulse Oximetry 98 99 10/25/18 14:00 10/25/18 15:14 10/25/18 16:00 Temperature 100.4 F H Pulse Rate 115 H 116 H 112 H Respiratory Rate 16 16 Blood Pressure 126/62 Pulse Oximetry 99 99 10/25/18 18:00 10/25/18 19:29 10/25/18 20:00 Temperature 99.8 F H Pulse Rate 122 H 121 H 125 H Respiratory Rate 17 22 Blood Pressure 89/51 L Pulse Oximetry 99 99 10/25/18 22:00 10/26/18 00:00 10/26/18 01:13 Temperature 99.7 F H Pulse Rate 118 H 119 H Respiratory Rate 17 19 Blood Pressure 153/69 H Pulse Oximetry 97 100 10/26/18 02:00 10/26/18 03:25 10/26/18 04:00 Temperature 99.6 F Pulse Rate 120 H 121 H 120 H Respiratory Rate 17 19 Blood Pressure 153/69 H Pulse Oximetry 98 10/26/18 04:11 10/26/18 06:00 Temperature Pulse Rate 108 H Respiratory Rate 26 H Blood Pressure Pulse Oximetry 99 Intake & Output 10/25/18 10/26/18 10/26/18 18:59 06:59 18:59 Intake Total 1402 / 1402 1304 / 1304 Output Total 525 / 525 400 / 400 Balance 877 / 877 904 / 904 Weight 56.6 kg Intake: Tube Feeding 402 / 402 554 / 554 Water Bolus Amount 500 / 500 500 / 500 Free Water Amount 500 / 500 250 / 250 Output: Urine Amount (Catheter) 525 / 525 400 / 400 Indwelling Urethral Catheter 525 / 525 400 / 400 Other: Date of Last Bowel Movement 10/25/18 10/26/18 # Incontinent Bowel Movements 3 2 Result Diagrams: 10/25/18 07:58 10/25/18 07:58 Other Results: Laboratory Results - last 12 hr 10/26/18 10/26/18 00:19 05:38 POC Glucose 131 H 145 H Imaging: Head CT 09/18/18 18:40 CONCLUSION: 1. Stable appearance of the brain. Marked ventriculomegaly and white matter disease. . Chest CTA 09/18/18 19:26 CONCLUSION: 1. There is no evidence for pulmonary embolism. 2. Severe emphysema. 3. There is a large soft tissue mass in the right lower lobe suspicious for malignancy until proven otherwise. Abdomen/Pelvis CT 10/03/18 07:26 CONCLUSION: 1. There is air and fluid identified within the stomach which may account for the patient's perceived distention. No evidence of bowel obstruction or ileus. 2. Extensive atherosclerosis. 3. Persistent right lower lobe airspace consolidation. Abdomen X-Ray 10/15/18 14:53 CONCLUSION: No dilated loops of small or large bowel. PEG tube in place. Venous Doppler Study 10/19/18 00:00 CONCLUSION: 1. Occlusive thrombus in the left cephalic vein. 2. No DVT in the right arm. Chest X-Ray 10/25/18 06:00 CONCLUSION: Masslike consolidation right lower lobe. Objective Remarks: GENERAL: 68-year-old female, well-developed patient female on ventilator via tracheostomy in no acute distress SKIN: Warm and dry. HEAD: Atraumatic. Normocephalic. EYES: Pupils equal and round. No scleral icterus. No injection or drainage. ENT: No nasal bleeding or discharge. Mucous membranes pink and moist. NECK: Tracheostomy in place, slight pink tinge to secretions, no active bleeding. CARDIOVASCULAR: S1, S2 normal, No murmurs rubs or gallops. RESPIRATORY: Tracheostomy 8.0 Shiley in situ, currently on CPAP trials B/L equal air entry GASTROINTESTINAL: Abdomen soft, non-tender,distended. PEG tube in place no drainage. MUSCULOSKELETAL: Extremities without clubbing, cyanosis, or edema. s/p L AKA. NEUROLOGICAL: Awakens easily looks around. Blinks and squeezes hand to command. Assessment and Plan - Assessment and Plan Plan: NEURO: History of stroke Off sedation. Monitor neuro status Currently on acetaminophen 60 p.o. every 6 hours as needed fever/pain with as needed hydrocodone/acetaminophen for pain RESP: Acute respiratory failure on mechanical ventilation Emphysema Lung mass History of prior trach after stroke, has been subsequently decannulated Per Dr. De Jesus. not wishing to pursue CT-guided biopsy. Continue with vent support Daily CPAP trials. Vent bundle Albuterol/ipratropium aerosols every 6 hours with albuterol aerosols every 2 as needed dyspnea Percutaneous tracheostomy performed at bedside 09/29. Pulm toilet, trach care CV: HTN Monitor BP/heart rate keep MAP>65mmHg. Increase Cardizem 60mg Q6 Labetalol as needed GI: Clogged PEG tube-resolved PEG in place. On Glucerna 1.5 @ 45ml/hr KUB abdomen 10/02 Normal bowel gas pattern. CT abd/pelvis 10/03: No evidence of bowel obstruction or ileus. GI consultedfor PEG tube malfunction. Fluids PEG tube replaced 10/18 FEN/RENAL: Monitor renal function, I/O's, electrolytes replacement per protocol. Free water 250ml Q8, ID: [id number] UTI Urine culture from 09/18 with providentia and Proteus. BC 10/01: NGTD sputum cx 09/28 and 10/03 : No growth Off abx- monitor for signs of infections ( Fever, WBC) C-diff PCR negative on 10/01 HEME: R brachial DVT Left cephalic superficial thrombus Anemia/microcytic Enoxaparin 60 mg subcu every 12 hours Hold for tracheostomy exchange. s/p Transfuse 2u PRBC 10/01. Monitor CBC daily as needed. ENDO: Diabetes mellitus Insulin sliding scale PROPH: SCD/enoxaparin for DVT prophylaxis resume Protonix 40mg Q12 for stress ulcer prophylaxis. 10/19:Doppler US LE: Occlusive thrombus in the left cephalic vein. No DVT in the right arm. 10/01 Doppler US UE b/l: Superficial venous thrombosis identified in the right cephalic vein. No evidence of DVT. 09/21 Doppler US RUE: Occlusive thrombus cephalic and brachial veins ACCESS: PIV x2. Full code Level 3 follow-up Planned transfer to LTAC when bed available
[2018-10-26] MEDS ORDERED: Enoxaparin Inj 60 MG/0.6 ML Syringe SQ SCH (08:00)
[2018-10-26 08:46] LABS: Baso % (Auto) 0.6 % (0.0-2.0); Eos # (Auto) 0.2 th/mm3 (0.0-0.4); Eos % (Auto) 3.1 % (0.0-4.0); Hematocrit 27.8 % (35.0-46.0); Hemoglobin 8.8 gm/dL (11.6-15.3); Lymph % (Auto) 13.6 % (9.0-44.0); Mean Corpuscular HGB Conc 31.7 % (32.0-36.0); Mean Corpuscular Hemoglobin 24.8 pg (27.0-34.0); Mean Corpuscular Volume 78.4 fL (80.0-100.0); Mean Platelet Volume 8.8 fL (7.0-11.0); Mono % (Auto) 12.7 % (0.0-8.0); Neut # (Auto) 5.2 th/mm3 (1.8-7.7); Platelet Count 396 th/mm3 (150-450); Red Blood Count 3.54 mil/mm3 (4.00-5.30); Red Cell Distribution Width 20.9 % (11.6-17.2); White Blood Count 7.5 th/mm3 (4.0-11.0)
[2018-10-26 08:59] LABS: Alanine Aminotransferase 9 U/L (10-53); Albumin 2.3 g/dL (3.4-5.0); Anion Gap 4 meq/L (5-15); Aspartate Aminotransferase 14 U/L (15-37); Blood Urea Nitrogen 16 mg/dL (7-18); Calcium 8.5 mg/dL (8.5-10.1); Carbon Dioxide 29.6 meq/L (21.0-32.0); Chloride 106 meq/L (98-107); Glomerular Filtration Rate Greater Than 89 mL/min (>89); Glucose,Random 131 mg/dL (74-106); Magnesium 2.5 mg/dL (1.5-2.5); Potassium 4.4 meq/L (3.5-5.1); Sodium 140 meq/L (136-145)
[2018-10-26 09:02] LABS: Alkaline Phosphatase 83 U/L (45-117); Phosphorus 3.4 mg/dL (2.5-4.9); Total Protein 8.6 g/dL (6.4-8.2)
[2018-10-26] MEDS: Ascorbic Acid 500 MG Tablet G-TUBE SCH (09:35)
[2018-10-26] MEDS: Chlorhexidine 0.12% Oral Kit 15 ML UDC OROPHARYNG SCH (09:35)
[2018-10-26] MEDS: Senna/Docusate Sodium 8.6/50 MG Tablet PO SCH (09:36)
[2018-10-26 12:50] VITALS: TEMP 100.3
[2018-10-26 16:39] VITALS: PULSE 111
[2018-10-26 16:40] VITALS: BP 136/61; RESP 16; O2SAT 97
== END 2018-10-26 17:05 | DRG 4 ==
LOC: NEPC 18:25 → NEDA 19:00 → HIMC 22:05
PROVIDERS: ADMIT Internal Medicine Critical Care Medicine; ATTEND Internal Medicine Critical Care Medicine
PROC: PANENDO (2018-10-04 10:22)
PROC: COLONOS (2018-10-04 10:22)
CPT/HCPCS: 31500; 31600; 31624; 36430; 36600; 51702; 70450; 71010; 71045; 71275; 74000; 74018; 74176; 76937; 80048; 80053; 80202; 81001; 82550; 82805; 82948; 82962; 83605; 83735; 84100; 84132; 84484; 85014; 85018; 85025; 85610; 85730; 86850; 86900; 86901; 86920; 87040; 87070; 87077; 87086; 87186; 87205; 87328; 87329; 87493; 87506; 87641; 93005; 93970; 93971; 94002; 94003; 94640; 94656; 94657; 94665; 97162; 97530; 99285; A7521; C9113; J0330; J0692; J1644; J1650; J1940; J2250; J2370; J2543; J2704; J2920; J3010; J3370; J3480; J7030; J7040; J7050; J7070; P9016; Q9967